=== PATIENT | male | born 1940 | race Caucasian/White ===

== ENCOUNTER 2019-11-11 07:49 | Outpatient (CLI) | payer MEDICARE, SELFPAY ==
--- NOTE | ~2019-11-11 | XR_ITS ---
XR UGI w barium swallow DATE: 11/11/2019 09:08 INDICATION: Dysphagia, abdominal pain. TECHNIQUE: Air-contrast upper gastrointestinal series. Fluoroscopy and rapid sequence spot radiograph s during swallowing of contrast material. COMPARISON: None FINDINGS: There is normal deglutition and esophageal peristalsis. No stricture, mucosal fold thickeni ng, erosion, ulceration or intraluminal mass lesion of the esophagus, stomach or duodenum is detected . The small bowel mucosal pattern appears normal. IMPRESSION: Negative examination Reviewed, dictated and finalized at Location A. Reviewed, dictated and finalized at location A. IMPRESSION: Negative examination
--- NOTE | ~2019-11-11 | US_ITS ---
EXAMINATION: US soft tissue head and neck DATE: 11/11/2019 08:19 INDICATION: Dysphagia. TECHNIQUE: Multiple grayscale and Doppler ultrasound images of the neck were obtained. COMPARISON: None FINDINGS: Solid hypoechoic right thyroid mass which is solid and wide measuring 1.5 cm in maximal dimension and without echogenic foci (TI-RADS 5, highly suspicious , FNA if >=1.0 cm, annual followup is >0.5 cm). 4 mm solid hypoechoic nodule in the left thyroid lobe. No other abnormal masses or fluid collections identified. IMPRESSION: 1. 1.5 cm solid TI-RADS 5 right thyroid nodule which ultrasound-guided biopsy would be recommended. N o other abnormal masses or fluid collections identified. Reviewed, dictated and finalized at location A. IMPRESSION: 1. 1.5 cm solid TI-RADS 5 right thyroid nodule which ultrasound-guided biopsy w ould be recommended. No other abnormal masses or fluid collections identified.
== END 2019-11-11 07:50 | disposition home or self-care (01) ==
PROVIDERS: PCP Internal Medicine; Visit Provider Internal Medicine
DX: E04.1 Nontoxic single thyroid nodule (principal); R13.10 Dysphagia, unspecified; R52 Pain, unspecified; J31.2 Chronic pharyngitis
CPT/HCPCS: 74240; 76536

== ENCOUNTER 2020-02-21 08:50 | Outpatient (CLI) | payer MEDICARE, SELFPAY | END 2020-02-21 08:51 | disposition home or self-care (01) | LOC: ANHAUDIO 08:53 | PROVIDERS: PCP Internal Medicine | DX: C01 Malignant neoplasm of base of tongue (principal) | CPT/HCPCS: 92557; 92567 ==

== ENCOUNTER 2020-03-29 10:19 | Emergency (ER) | payer MEDICARE, SELFPAY ==
[2020-03-29] VITALS (16 sets, daily range): BP systolic 101–148; BP diastolic 64–89; PULSE 71–95; RESP 13–25; TEMP 36.6; O2SAT 91–100
--- NOTE | ~2020-03-29 | CT_ITS ---
EXAMINATION: CT abdomen pelvis wo con DATE: 03/29/2020 13:34 INDICATION: Urinary retention, history of lung and throat cancer TECHNIQUE: Computed tomography (CT) of the abdomen and pelvis was performed without intravenous contr ast. The dose-length product (DLP) was 275.56 mGy-cm. Automated exposure control and iterative recons truction technique were employed. COMPARISON: 10/25/2016 FINDINGS: There is severe emphysema in the visualized lung bases. The heart size is normal. The liver , spleen, pancreas, gallbladder, and adrenal glands are normal. Simple cysts of the kidneys measure u p to 2.2 cm on the right. There is a 2 cm mildly hyperattenuating lesion of the left mid kidney. Ther e is calcified atherosclerosis of the aorta and many of the other arteries. No pathologically enlarge d abdominal or pelvic lymph nodes are identified. There is no free intraperitoneal gas or evidence of bowel obstruction. The urinary bladder is distended. There is fecal impaction of the rectum. Mild wa ll thickening of the rectum with adjacent perirectal fat stranding could reflect stercoral colitis. T here is severe lower lumbar spondylosis. IMPRESSION: 1. Distention of the urinary bladder. 2. Fecal impaction of the rectum with possible stercoral colitis. 3. Indeterminate lesion of the left mid kidney. Follow-up by nonemergent MRI without and with contras t is recommended. Reviewed, dictated and finalized at location A. L TRAINING PROGRAM COORDINATOR IMPRESSION: 1. Distention of the urinary bladder. 2. Fecal impaction of the rectum with possible stercoral colitis. 3. Indeterminate lesion of the left mid kidney. Follow-up by nonemergent MRI wi thout and with contrast is recommended.
--- NOTE | ~2020-03-29 | XR_ITS ---
EXAMINATION: XR chest 2V DATE: 03/29/2020 11:10 INDICATION: Weakness, history of lung cancer TECHNIQUE: PA and lateral views of the chest are obtained. COMPARISON: 10/11/2016 and 10/25/2016 FINDINGS: A right internal jugular Port-A-Cath ends with its tip in the distal superior vena cava. Th ere is left perihilar opacity with volume loss in the left upper lobe. There is scarring in the right lung apex. The heart size is normal. There is moderate thoracic spondylosis. IMPRESSION: 1. Left perihilar opacity with scarring and volume loss in the left upper lobe, likely related to pat ient's lung cancer. No acute findings identified. Reviewed, dictated and finalized at location A. E SALESPERSON IMPRESSION: 1. Left perihilar opacity with scarring and volume loss in the left upper lobe, likely related to patient's lung cancer. No acute findings identified.
--- NOTE | 2020-03-29 10:55 | ED.GENADULT ---
HPI - General Adult General Chief complaint: Unspecified Stated complaint: SOB/diarrhea Time Seen by Provider: 03/29/20 10:40 Source: patient Mode of arrival: ambulatory Limitations: no limitations History of Present Illness HPI narrative: This is a 79 year old male that presents to the ER for decreased urination. Reports he has not been eating or drinking much. Nothing tastes good to him. Reports he has not been getting much urine out the last couple of days. Reports he has history of lung cancer and throat cancer. Is currently on chemotherapy, most recent treatment 03/24. Reports he had a couple of days of diarrhea last week that resolved after a dose of Imodium. Reports he does have some shortness of breath which is around his baseline. Denies fever, chest pain, abdominal pain, vomiting, dysuria, or hematuria. Related Data Home Medications Medication Instructions Recorded Confirmed folic acid 800 mcg tablet 0.8 mg PO DAILY 01/08/19 02/12/20 glucosamine HCl 500 mg tablet 500 mg PO BID 01/08/19 02/12/20 lidocaine-prilocaine 2.5 %-2.5 % 1 applic TOPICAL ONCE 01/09/19 02/12/20 topical cream omega-3 fatty acids 1,000 mg 1,000 mg PO DAILY 01/09/19 02/12/20 capsule psyllium husk 0.52 gram capsule 0.52 gm PO DAILY 01/09/19 02/12/20 aspirin 81 mg tablet,delayed 81 mg PO DAILY 01/23/19 02/12/20 release tamsulosin 0.4 mg capsule 0.4 mg PO DAILY 01/23/19 02/12/20 polyethylene glycol 3350 17 17 gm PO BID 09/09/19 02/12/20 gram/dose oral powder dexamethasone 4 mg tablet 4 mg PO DAILY PRN 02/12/20 02/12/20 Allergies Allergy/AdvReac Type Severity Reaction Status Date / Time No Known Allergies Allergy Verified 03/29/20 10:37 Review of Systems Review of Systems: Narrative: CONSTITUTIONAL: Denies fever CARDIOVASCULAR: Denies chest pain RESPIRATORY: Reports dyspnea. Denies cough GASTROINTESTINAL: Reports diarrhea. Denies abdominal pain, nausea, vomiting NEUROLOGIC: Reports generalized weakness. All systems reviewed & are unremarkable except as noted in HPI and below PMFSH Past Medical History Medical History (Updated 03/29/20 @ 16:54 by Brenna Alexis PA-C) Anxiety Benign essential hypertension BMI 24.0-24.9, adult BMI 26.0-26.9,adult BMI 27.0-27.9,adult BPH (benign prostatic hyperplasia) Cellulitis Chronic sore throat COPD (chronic obstructive pulmonary disease) Dysphagia Encounter for routine adult health examination with abnormal findings Encounter for routine adult health examination without abnormal findings Essential (primary) hypertension History of tobacco use Hx of cancer of lung Hyperlipidemia Insomnia Lung cancer Malignant neoplasm of hilus of lung Metastatic lung cancer (metastasis from lung to other site) 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 Pedal edema Pulmonary emphysema Squamous cell cancer of tongue Family History Family History Sibling Family history of allergic disorder Father Family history of emphysema Family history of chronic obstructive pulmonary disease Mother Family history of emphysema, Onset Age: 89 Family history of malignant neoplasm of breast in first degree relative Family history of malignant neoplasm of breast Social History Social History Smoking status: Former smoker Second hand tobacco smoke exposure: No Smoking end date: 02/07/04 Alcohol intake: never Gender identity (if verbalized by the patient): Male Exam Narrative: Exam Narrative: GENERAL: Chronically ill-appearing, thin, and in no acute distress. HEAD: Normocephalic, atraumatic. EYES: EOMI. ENT: Nares clear, no rhinorrhea or epistaxis. Mucous membranes dry. Oropharynx without tonsillar hypertrophy exudate or other lesions. Bilateral TMs pearly henderson non-bulging NECK: Supple. No adenopathy or masses. CHEST: Clear to auscultation. No respiratory distress. No wheezes rales or rhonchi H
[2020-03-29] MEDS: SODIUM CHLORIDE 0.9% IV 1,000 ML 999 ML IV CONT (11:10)
[2020-03-29 11:37] LABS: Basophils Percent Auto 0.1 % (0.2-1.2); Hematocrit 42.8 % (42.0-52.0); Immature Granulocyte Absolute 0.07 K/mm3 (0.00-0.031); Immature Granulocyte Percent A 0.5 % (0-0.5); Lymphocytes Absolute Auto 0.99 K/mm3 (0.9-3.2); Lymphocytes Percent Auto 6.6 % (18.3-44.2); Mean Corpuscular HGB Conc 32.7 g/dl (32-36); Mean Corpuscular Hemoglobin 26.8 pg (26-34); Mean Platelet Volume 11.3 fl (7.4-10.4); Monocytes Absolute Auto 1.3 K/mm3 (0.1-0.6); Monocytes Percent Auto 8.6 % (2.6-8.5); Neutrophils Absolute Auto 12.6 K/mm3 (1.3-6.7); Neutrophils Percent Auto 84.2 % (45.5-73.1); Platelet Count Result 350 k/mm3 (150-375); Red Blood Count 5.22 M/mm3 (4.6-6.20); Red Cell Distribution Width 13.5 % (11.5-14.5); White Blood Count 14.9 K/mm3 (4.5-10.0)
[2020-03-29 11:47] LABS: INR 1.1; Prothrombin Time 14.5 Seconds (11.1-14.7)
[2020-03-29 11:48] LABS: Partial Thromboplastin Time 35.1 SECONDS (22.3-36.8)
[2020-03-29 11:52] LABS: Alanine Aminotransferase 22 U/L (4-50); Albumin Level 3.5 g/dL (3.5-5.1); Alkaline Phosphatase 49 U/L (38-126); Anion Gap 5 mmol/L (8-16); Aspartate Amino Transferase 27 U/L (17-59); Bilirubin,Total 0.5 mg/dL (0.2-1.3); Blood Urea Nitrogen 13 mg/dL (9-20); CRP 1.2 mg/dL (<1.0); Calcium 8.6 mg/dL (8.4-10.2); Carbon Dioxide 26 mmol/L (22-30); Chloride 101 mmol/L (98-107); Estimated CRCL calculation 51 ml/min; Estimated Glomerular Filt Rate > 60; Glucose 104 mg/dL (75-110); Lipase 90 U/L (23-300); Potassium 3.1 mmol/L (3.4-5.0); Sodium 132 mmol/L (137-145)
[2020-03-29 12:19] LABS: Add Urine Microscopic? YES; Appearance Urine Clear (Clear); Bacteria Urine Trace /hpf; Bilirubin Urine Negative (Negative); Blood Urine Negative (Negative); Color Urine Yellow (Yellow); Glucose Urine UA Negative (Negative); Ketones Urine Negative (Negative); Leukocyte Esterase Ur Negative LEU/UL (Negative); Nitrate Urine Negative (Negative); Protein Urine Negative (Negative); RBC Urine 0-2 /hpf (0-2); Specific Grav Ur 1.009 (1.001-1.035); Squamous Epithelial Cell Urine Rare /hpf (Few); Urobilinogen Urine Negative mg/dL (<2.0)
[2020-03-29] MEDS: POTASSIUM CHLORIDE 20 MEQ PACKET (FOR LIQUID) 40 MEQ PO (15:18)
[2020-03-29] MEDS: HEPARIN SOD FLUSH 500 UNITS/5 ML SYRINGE IV PUSH (17:20)
== END 2020-03-29 17:27 | disposition home or self-care (01) ==
PROVIDERS: Physician Assistant; Emergency Provider Emergency Medicine; PCP Internal Medicine
DX: N30.00 Acute cystitis without hematuria (principal); N40.1 Benign prostatic hyperplasia with lower urinary tract symptoms; R33.8 Other retention of urine; K56.41 Fecal impaction; C34.90 Malignant neoplasm of unspecified part of unspecified bronchus or lung; C14.0 Malignant neoplasm of pharynx, unspecified; E78.5 Hyperlipidemia, unspecified; I10 Essential (primary) hypertension; J44.9 Chronic obstructive pulmonary disease, unspecified; N28.9 Disorder of kidney and ureter, unspecified; Z87.891 Personal history of nicotine dependence; Z79.899 Other long term (current) drug therapy; R06.02 Shortness of breath
CPT/HCPCS: 36415; 71046; 74176; 80053; 81001; 83605; 83690; 85025; 85610; 85730; 86140; 87086; 96360; 99284; A9270; J7030

== ENCOUNTER 2020-05-27 12:56 | Outpatient (CLI) | payer MEDICARE, SELFPAY ==
--- NOTE | 2020-06-02 16:12 | WPDHOLTEREM ---
Holter/Event Monitor Holter/Event Monitor Date of procedure: 05/27/20 Procedure Type: 48 hour holter monitor Indications: ? Conclusion: 1. 48 hour holter monitor on 05/27/20. 2. Predominant rhythm is sinus rhythm. HR range 61-113 bpm; average HR 85 bpm. 3. There are 21,902 premature supraventricular complexes, 627 supraventricular couplets, 3 supraventricular bigeminy and 19,797 supraventricular trigeminy. There are 96 episodes of atrial tachycardia, fastest at 188 bpm and longest lasting 11 beats. 4. There are 2,548 premature ventricular complexes, 9 ventricular couplets and 125 ventricular trigeminy. No ventricular tachycardia. 5. No sinoatrial or atrioventricular blocks. No significant pauses greater than 2 seconds. 6. No symptoms available for correlation.
== END 2020-05-27 12:57 | disposition home or self-care (01) ==
PROVIDERS: PCP Internal Medicine; Visit Provider Internal Medicine
DX: I49.49 Other premature depolarization (principal); R00.2 Palpitations
CPT/HCPCS: 93225; 93226

== ENCOUNTER 2021-04-04 18:14 | Emergency (ER) | payer MEDICARE, SELFPAY ==
[2021-04-04] VITALS (13 sets, daily range): BP systolic 120–142; BP diastolic 76–104; PULSE 84–144; RESP 17–29; TEMP 37.2; O2SAT 89–96
--- NOTE | ~2021-04-04 | XR_ITS ---
EXAMINATION: XR chest 1V portable INDICATION: Shortness of breath, history of lung cancer TECHNIQUE: Portable AP chest at 1834 hours COMPARISON: 03/29/2020 FINDINGS: A right internal jugular Port-A-Cath ends with its tip in the distal superior vena cava. Th ere are persistent left perihilar opacities with volume loss in the left lung apex. There are increas ing airspace opacities in the left mid and lower lung zones. There is elevation of the right hemidiap hragm. The heart size is normal. IMPRESSION: 1. Increasing airspace opacities of the left mid and lower lung zones, consistent with atelectasis ve rsus pneumonia. 2. Left perihilar opacity and volume loss of the left upper lobe, likely related to patient's lung ca ncer. Reviewed, dictated and finalized at location F. HER POLISHER IMPRESSION: 1. Increasing airspace opacities of the left mid and lower lung zones, consiste nt with atelectasis versus pneumonia. 2. Left perihilar opacity and volume loss of the left upper lobe, likely relate d to patient's lung cancer.
--- NOTE | ~2021-04-04 | CT_ITS ---
EXAMINATION: CTA chest PE protocol DATE: 04/05/2021 07:16 CINDER SNAPPER INDICATION: Shortness of breath. Elevated d-dimer. TECHNIQUE: Computed tomographic angiography (CTA) of the chest was performed with 100 mL Omnipaque-35 0 intravenous contrast. The dose-length product was 487.85 mGy-cm. Maximum intensity projection 3D-re constructions of the aorta and other arteries were constructed by the technologist on a separate work station. COMPARISON: CT dated 10/11/2016. FINDINGS: There is right upper lobe pulmonary embolism, age indeterminate. There is a large pericardi al effusion. Small pleural effusions. There is atherosclerosis of the aorta. There is a hyperdense ri ght renal lesion which has increased in size compared with prior study severe emphysema. There is sca rring at the lung apices. There is fibrosis in the lower lungs with underlying atelectasis. There are scattered areas of consolidation. Cannot exclude acute pneumonia. There is linear appearance to scar ring in the left thorax medially, possibly radiation therapy.. Recommend correlation with ultrasound. There are nodular densities in the right upper and lower lobe laterally on the largest measuring 11 mm. Cannot exclude malignancy. IMPRESSION: 1. Pulmonary embolism right upper and lower lobes pulmonary artery, age indeterminate. 2: Irregular pleural-based nodules right upper lobe. Cannot exclude malignancy. Consider correlation with pet/CT scan or percutaneous biopsy. 3: Moderate pericardial effusion. Small pleural effusions. 4: Emphysema. 5: Hyperdense right renal lesion, enlarged since prior examination. Recommend correlation with ultras ound. Reviewed, dictated and finalized at location A. ER SNAPPER IMPRESSION: 1. Pulmonary embolism right upper and lower lobes pulmonary artery, age indeter minate. 2: Irregular pleural-based nodules right upper lobe. Cannot exclude malignancy . Consider correlation with pet/CT scan or percutaneous biopsy. 3: Moderate pericardial effusion. Small pleural effusions. 4: Emphysema. 5: Hyperdense right renal lesion, enlarged since prior examination. Recommend c orrelation with ultrasound.
--- NOTE | 2021-04-04 18:22 | ECG_ITS ---
Measurements Intervals [place] Rate: 93 P: 265 MN: 105 QRS: 50 QRSD: 89 T: 38 QT: 357 QTc: 446 Interpretive Statements ECTOPIC ATRIAL RHTYHM ATRIAL COUPLET LOW QRS VOLTAGE IN LIMB LEADS BORDERLINE R WAVE PROGRESSION, ANTERIOR LEADS ABNORMAL ECG Electronically Signed On 04-04-2021 20:21:18 POCKET OPERATOR by Miles Galvan D.O.
--- NOTE | 2021-04-04 18:23 | ED.SOB ---
HPI - SOB/Dyspnea General Chief Complaint: Shortness of Breath/Dyspnea <Andres Montes APRN - Last Filed: 04/04/21 18:47> Stated Complaint: dyspnea <Andres Montes APRN - Last Filed: 04/04/21 18:47> Time Seen by Provider: 04/04/21 19:01 <Andres Montes APRN - Last Filed: 04/04/21 18:47> History of Present Illness HPI Narrative: 80-year-old male presents to the emergency room with acute onset of shortness of breath started this morning. Patient has a history of lung CA, last chemo treatment was 3 weeks ago. Patient states has been taking his MDI albuterol inhaler on multiple occasions today with no relief. Patient recently diagnosed with atrial fibrillation, has started on Eliquis and metoprolol. Patient does not know who his master baker is. <Andres Montes APRN - Last Filed: 04/04/21 18:47> Patient recently admitted to [facility] for his A-fib. Also he is due for Chemo on Monday at [facility]. <Hilary Nayak APRN - Last Filed: 04/05/21 03:16> Related Data Home Medications: Home Medications Medication Instructions Recorded Confirmed folic acid 800 mcg tablet 0.8 mg PO DAILY 01/08/19 03/02/21 lidocaine-prilocaine 2.5 %-2.5 % 1 applic TOPICAL ONCE 01/09/19 03/02/21 topical cream omega-3 fatty acids 1,000 mg 1,000 mg PO DAILY 01/09/19 03/02/21 capsule aspirin 81 mg tablet,delayed 81 mg PO DAILY 01/23/19 03/02/21 release tamsulosin 0.4 mg capsule 0.4 mg PO DAILY 01/23/19 03/02/21 polyethylene glycol 3350 17 17 gm PO BID 09/09/19 03/02/21 gram/dose oral powder finasteride 5 mg tablet 5 mg PO DAILY 05/27/20 03/02/21 gabapentin 100 mg capsule 100 mg PO TID 07/01/20 03/02/21 dexamethasone 4 mg tablet 8 mg PO DAILY PRN tablet 10/14/20 03/02/21 Eliquis 04/04/21 metoprolol succinate 04/04/21 <Andres Montes APRN - Last Filed: 04/04/21 18:47> Allergies/Adverse Reactions: Allergies Allergy/AdvReac Type Severity Reaction Status Date / Time No Known Allergies Allergy Verified 04/05/21 00:43 <Andres Montes APRN - Last Filed: 04/04/21 18:47> Review of Systems Review of Systems: CONSTITUTIONAL: Denies fever, chills, or sweats. EYES: Denies visual changes, redness, or discharge. ENT: Denies rhinorrhea, congestion, sore throat, or otalgia. CARDIOVASCULAR: Denies chest pain, palpitations, or edema. RESPIRATORY: Reports dyspnea. GASTROINTESTINAL: Denies abdominal pain, nausea, vomiting, or diarrhea. GENITOURINARY: Denies dysuria or hematuria. SKIN: Denies rash or itching. MUSCULOSKELETAL: Denies back pain, joint pain, or myalgia. NEUROLOGIC: Denies headache, numbness, dizziness, or weakness. PSYCHIATRIC: Denies anxiety or depression. <Andres Montes APRN - Last Filed: 04/04/21 18:47> [facility] Past Medical History Medical History: Medical History Anxiety Benign essential hypertension BMI 22.0-22.9, adult BMI 23.0-23.9, adult BMI 24.0-24.9, adult BMI 26.0-26.9,adult BMI 27.0-27.9,adult BPH (benign prostatic hyperplasia) Cellulitis Chronic sore throat Constipation Dry mouth Dysphagia Ectopic beats Encounter for routine adult health examination with abnormal findings Encounter for routine adult health examination without abnormal findings Essential (primary) hypertension Follow up History of tobacco use Hx of cancer of lung Hyperlipidemia Insomnia Malignant neoplasm of hilus of lung Metastatic lung cancer (metastasis from lung to other site) On intermediate drug therapy PAC (premature atrial contraction) Pedal edema Pulmonary emphysema Squamous cell cancer of tongue SVT (supraventricular tachycardia) Urinary retention <Andres Montes APRN - Last Filed: 04/04/21 18:47> Family History Family History: Family History Sibling Family history of allergic disorder Father Family history of emphysema Family history of chronic obstr
--- NOTE | 2021-04-04 18:49 | PC.NURSE ---
Pt's rhythm converted out of a-fib while RN hooking patient up for EKG. HR improved from 140's to 80-90's. Pt states that he is feeling much better, and trialed off of supplemental O2. Pt now 96% on RA, speaking full sentences. Provider aware.
[2021-04-04 19:03] LABS: Alveolar/Arterial O2 Gradient 99.6 mmHg; Base Excess ABG -0.2 mEq/l (+/-2.0); Fractional Inspired Oxygen 21 %; HCO3 ABG 21.9 mEq/l (22.0-26.0); Oxygen Content ABG 15.8 %vol (16.0-22.0); Oxygen Saturation ABG 94.5 % (95.0-100.0); Oxyhemoglobin 91.5 % THb (90.0-100.0); PCO2 ABG 28.5 mmHg (35.0-45.0); PO2 ABG 64.1 mmHg (80.0-100.0); PO2 FiO2 Ratio Arterial Blood 3.05 %; Total Hemoglobin 12.3 g/dL (12.0-18.0)
[2021-04-04 19:04] LABS: pH ABG 7.504 (7.350-7.450)
[2021-04-04 19:05] LABS: Device ROOM AIR; Modified Allen's Test Pass; Site Drawn RIGHT RADIAL
--- NOTE | 2021-04-04 19:42 | PC.NURSE ---
This RN attempted to access port x 2 attempts. Could not get port to flush or draw blood despite appearing to be in place with either attempt. RN then attempted to obtain labs via peripheral access. Attempted IV placement x 2. IV successfully placed, however, unable to obtain enough blood to get any of the lab work. Provider updated. Pt requesting numbing cream of some form if additional attempts are needed to access port.
[2021-04-04] MEDS: LIDOCAINE/PRILOCAINE CREAM 2.5-2.5% TUBE 1 EACH TOPICAL (20:13)
[2021-04-04 21:23] LABS: Basophils Percent Auto 0.1 % (0.2-1.2); Eosinophils Percent Auto 0.1 % (0-4.4); Hematocrit 33.2 % (42.0-52.0); Hemoglobin 10.9 g/dL (14.0-18.0); Immature Granulocyte Absolute 0.08 K/mm3 (0.00-0.031); Immature Granulocyte Percent A 0.5 % (0-0.5); Lymphocytes Percent Auto 7.5 % (18.3-44.2); Mean Corpuscular HGB Conc 32.8 g/dl (32-36); Mean Corpuscular Hemoglobin 28.5 pg (26-34); Mean Corpuscular Volume 86.9 fl (80-100); Mean Platelet Volume 10.9 fl (7.4-10.4); Monocytes Absolute Auto 1.3 K/mm3 (0.1-0.6); Monocytes Percent Auto 7.5 % (2.6-8.5); Neutrophils Absolute Auto 14.6 K/mm3 (1.3-6.7); Neutrophils Percent Auto 84.3 % (45.5-73.1); Platelet Count Result 323 k/mm3 (150-375); Red Blood Count 3.82 M/mm3 (4.6-6.20); Red Cell Distribution Width 15.1 % (11.5-14.5); White Blood Count 17.3 K/mm3 (4.5-10.0)
[2021-04-04 21:33] LABS: Alanine Aminotransferase 34 U/L (4-50); Albumin Level 3.1 g/dL (3.5-5.1); Alkaline Phosphatase 63 U/L (38-126); Anion Gap 4 mmol/L (8-16); Aspartate Amino Transferase 30 U/L (17-59); Bilirubin,Total 0.3 mg/dL (0.2-1.3); Blood Urea Nitrogen 39 mg/dL (9-20); Calcium 8.3 mg/dL (8.4-10.2); Carbon Dioxide 27 mmol/L (22-30); Chloride 99 mmol/L (98-107); Estimated Glomerular Filt Rate 53; Glucose 84 mg/dL (65-110); Magnesium 2.3 mg/dL (1.6-2.3); Potassium 4.2 mmol/L (3.4-5.0); Sodium 130 mmol/L (137-145)
[2021-04-04 21:35] LABS: INR 2.2
[2021-04-04] MEDS: SODIUM CHLORIDE 0.9% IV 1,000 ML 125 ML IV CONT (21:38)
[2021-04-04 21:45] LABS: NT Pro B Type Natriuretic Pept 1480 pg/mL (5-100); Troponin I 0.026 ng/mL (0.000-0.034)
[2021-04-04 21:46] LABS: D Dimer 0.87 ug/mL (<0.48)
[2021-04-04 22:24] LABS: SARS-CoV-2 RNA PCR Negative
--- NOTE | 2021-04-04 23:10 | PC.NURSE ---
Handoff received from Betina VIGIL. Patient lying in ED stretcher. Reports being uncomfortable in stretcher. Calm and cooperative. Patient AAOX3. Eqaul and labored resp. Tachypneic. Port in place secured and patent. 22gIV L wrist in place secured and patent. Family at bedside. Denies any pain. Repositioned in bed, pants removed. Urinal placed within reach. Placed on O2 via NC at 2LPM for SpO2 of 89. Patient reports being more comfortable. SpO2 improved to 92%. Will continue to monitor patient.
[2021-04-04] MEDS: FUROSEMIDE INJ 100 MG/10 ML VIAL 80 MG IV PUSH (23:13)
[2021-04-05 00:06] LABS: Add Urine Microscopic? YES; Appearance Urine Clear (Clear); Bilirubin Urine Negative (Negative); Blood Urine Negative (Negative); Color Urine Yellow (Yellow); Glucose Urine UA Negative (Negative); Ketones Urine Negative (Negative); Leukocyte Esterase Ur Negative LEU/UL (Negative); Nitrate Urine Negative (Negative); Protein Urine Negative (Negative); RBC Urine 0-2 /hpf (0-2); Specific Grav Ur 1.017 (1.001-1.035); Squamous Epithelial Cell Urine Rare /hpf (Few); Urobilinogen Urine Negative mg/dL (<2.0); WBC Urine 0-3 /hpf
[2021-04-05 01:00] VITALS: BP 140/91; PULSE 166; RESP 24; O2SAT 95
[2021-04-05] MEDS: METOPROLOL TARTRATE INJ 5 MG/5 ML VIAL IV PUSH (01:00)
[2021-04-05 01:17] VITALS: BP 135/59; PULSE 90; RESP 22; O2SAT 95
[2021-04-05 03:30] VITALS: BP 101/64; PULSE 91; RESP 18; O2SAT 99
[2021-04-05 05:37] VITALS: BP 99/72; PULSE 94; RESP 20; TEMP 36.6; O2SAT 99
== END 2021-04-05 05:42 | disposition short-term general hospital (02) ==
LOC: ANHED 19:42
PROVIDERS: Nurse Practitioner Family; Emergency Provider Nurse Practitioner Family; PCP Internal Medicine
DX: I11.0 Hypertensive heart disease with heart failure (principal); I50.9 Heart failure, unspecified; I31.3 Pericardial effusion (noninflammatory); I48.92 Unspecified atrial flutter; C79.9 Secondary malignant neoplasm of unspecified site; Z20.822 Contact with and (suspected) exposure to COVID-19; C34.90 Malignant neoplasm of unspecified part of unspecified bronchus or lung; I48.91 Unspecified atrial fibrillation; E78.5 Hyperlipidemia, unspecified; J43.9 Emphysema, unspecified; F41.9 Anxiety disorder, unspecified; Z79.01 Long term (current) use of anticoagulants; Z79.82 Long term (current) use of aspirin; Z79.899 Other long term (current) drug therapy; Z87.891 Personal history of nicotine dependence; R00.8 Other abnormalities of heart beat; R94.31 Abnormal electrocardiogram [ECG] [EKG]; N28.9 Disorder of kidney and ureter, unspecified
CPT/HCPCS: 36415; 36600; 71045; 71275; 80053; 81001; 82805; 83605; 83735; 83880; 84484; 85025; 85380; 85610; 85730; 87040; 93005; 96361; 96365; 96375; 99285; C9803; J0692; J1940; J7030; Q9967; U0003; U0005

== ENCOUNTER 2022-11-08 15:15 | Outpatient (CLI) | payer MEDICARE, SELFPAY ==
--- NOTE | ~2022-11-08 | XR_ITS ---
EXAMINATION: XR knee LT min 4V DATE: 11/08/2022 15:47 INDICATION: Left knee pain. TECHNIQUE: 4 views of left knee including weightbearing views were obtained. COMPARISON: None. FINDINGS: Bone alignment is normal. No fracture. There is mild osteoarthritis of lateral compartment characterized by a tiny osteophyte. No knee joint effusion. IMPRESSION: 1. Mild left knee osteoarthritis. Reviewed, dictated and finalized at location E.
--- NOTE | ~2022-11-08 | XR_ITS ---
EXAMINATION: XR ankle LT min 3V DATE: 11/08/2022 15:47 INDICATION: Left knee pain TECHNIQUE: Anteroposterior, oblique, mortise, and lateral views of the left ankle were obtained. COMPARISON: None. FINDINGS: Alignment is normal. No fracture. Joint spaces are well maintained. Tiny plantar calcaneal spur. No ankle joint effusion. The soft tissues are unremarkable. IMPRESSION: 1. No left ankle joint effusion or acute osseous abnormality. Reviewed, dictated and finalized at location A.
== END 2022-11-08 15:16 | disposition home or self-care (01) ==
LOC: ANHIMG 15:19
PROVIDERS: PCP Internal Medicine; Visit Provider Internal Medicine
DX: M17.12 Unilateral primary osteoarthritis, left knee (principal)
CPT/HCPCS: 73564; 73610

== ENCOUNTER 2022-11-24 13:08 | Outpatient (CLI) | payer MEDICARE, SELFPAY ==
--- NOTE | ~2022-11-24 | US_ITS ---
EXAMINATION: US venous doppler [facility] DATE: 11/24/2022 14:22 INDICATION: Lower limb pain TECHNIQUE: Castrejon scale images without and with compression and Doppler images of the left lower extrem ity veins were obtained. COMPARISON: 10/15/2018 FINDINGS: The left common femoral vein, profunda femoral vein, femoral vein, popliteal vein, peroneal trunk, posterior tibial veins, and greater saphenous vein are patent. IMPRESSION: 1. Patent left lower extremity veins. No evidence of deep venous thrombosis. Reviewed, dictated and finalized at location F.
== END 2022-11-24 13:09 | disposition home or self-care (01) ==
PROVIDERS: PCP Internal Medicine; Visit Provider Internal Medicine
DX: M25.572 Pain in left ankle and joints of left foot (principal); M25.562 Pain in left knee; M79.89 Other specified soft tissue disorders
CPT/HCPCS: 93971

== ENCOUNTER 2022-12-19 10:41 | Emergency (ER) | payer MEDICARE, SELFPAY ==
--- NOTE | ~2022-12-19 | CT_ITS ---
EXAMINATION: CT brain wo con DATE: 12/19/2022 11:35 INDICATION: Head injury. TECHNIQUE: Computed tomography (CT) of the head was performed without intravenous contrast. The mA wa s adjusted according to patient size. Iterative reconstruction technique was employed. The dose-lengt h product was 605.33 mGy-cm. COMPARISON: None FINDINGS: There is no intracranial hemorrhage, acute infarction, or abnormal intracranial mass lesion . The ventricles are normal in size. There are likely changes of ocular lens replacement surgeries. T here is mild mucosal thickening in the paranasal sinuses. There is a trace left mastoid effusion. IMPRESSION: 1. Normal brain. Reviewed, dictated and finalized at location A. OOD PREPARER IMPRESSION: 1. Normal brain.
[2022-12-19 10:53] VITALS: BP 110/61; PULSE 58; RESP 16; TEMP 36.9; O2SAT 97
[2022-12-19] MEDS: LIDOCAINE HCL 1% LOCAL INJ 10 ML VIAL 4 ML INFILTRATE (11:26)
--- NOTE | 2022-12-19 13:33 | ED.GENADULT ---
HPI - General Adult General Chief complaint: Head Injury <Ken Romero PA-C - Last Filed: 12/19/22 13:37> Stated complaint: FALL, MOUTH INJURY ON ELIQUIS <Ken Romero PA-C - Last Filed: 12/19/22 13:37> Time Seen by Provider: 12/19/22 11:14 <Ken Romero PA-C - Last Filed: 12/19/22 13:37> History of Present Illness HPI narrative: Patient is an 82-year-old male who presents ER after a trip and fall. Occurred outside his oncologist office. He did strike his head but did not lose consciousness. He suffered stellate laceration to his lower lip. Reports his tetanus shot is up-to-date. He has no headache or change in vision. No numbness or tingling. No additional concerns at this time. He did chip a tooth on his denture when he fell. <Chidi Haque MD - Last Filed: 12/19/22 18:06> Related Data Home medications: Home Medications Medication Instructions Recorded Confirmed folic acid 800 mcg tablet 0.8 mg PO DAILY 01/08/19 11/09/22 lidocaine-prilocaine 2.5 %-2.5 % 1 applic topical ONCE 01/09/19 11/09/22 topical cream tamsulosin 0.4 mg capsule 0.4 mg PO DAILY 01/23/19 11/09/22 polyethylene glycol 3350 17 17 gm PO BID 09/09/19 11/09/22 gram/dose oral powder (Miralax) finasteride 5 mg tablet 5 mg PO DAILY 05/27/20 11/09/22 gabapentin 100 mg capsule 100 mg PO TID 07/01/20 11/09/22 dexamethasone 4 mg tablet 8 mg PO DAILY PRN 10/14/20 11/09/22 Eliquis 04/04/21 11/09/22 carvedilol 12.5 mg tablet 12.5 mg PO Q12H 07/23/21 11/09/22 spironolactone 25 mg tablet 25 mg PO DAILY 07/23/21 11/09/22 cetirizine 10 mg tablet (Zyrtec) 10 mg PO DAILY PRN 08/20/21 11/09/22 cholecalciferol (vitamin D3) 50 50 mcg PO DAILY 04/05/22 11/09/22 mcg (2,000 unit) capsule <Ken Romero PA-C - Last Filed: 12/19/22 13:37> Allergies/adverse reactions: Allergies Allergy/AdvReac Type Severity Reaction Status Date / Time No Known Allergies Allergy Verified 12/19/22 10:55 <Ken Romero PA-C - Last Filed: 12/19/22 13:37> Review of Systems Review of Systems: All systems reviewed & are unremarkable except as noted in HPI and below <Chidi Haque MD - Last Filed: 12/19/22 18:06> ENT: Reports system reviewed and no additional complaints, except as documented <Chidi Haque MD - Last Filed: 12/19/22 18:06> Cardiovascular: Cardiovascular: Reports no additional cardiovascular complaints <Chidi Haque MD - Last Filed: 12/19/22 18:06> Respiratory: Respiratory: Reports no additional respiratory complaints <Chidi Haque MD - Last Filed: 12/19/22 18:06> Gastrointestinal: Gastrointestinal: Reports no additional gastrointestinal complaints <Chidi Haque MD - Last Filed: 12/19/22 18:06> Integumentary/Breasts: Skin/Breast: Denies erythema and Denies rash <Chidi Haque MD - Last Filed: 12/19/22 18:06> Comments: Lip laceration <Chidi Haque MD - Last Filed: 12/19/22 18:06> [facility] Past Medical History Medical History: Medical History Anxiety Benign essential hypertension BMI 22.0-22.9, adult BMI 23.0-23.9, adult BMI 24.0-24.9, adult BMI 26.0-26.9,adult BMI 27.0-27.9,adult Borderline abnormal TFTs BPH (benign prostatic hyperplasia) Cellulitis Chronic sore throat Constipation Depression Dry mouth Dysphagia Ectopic beats Encounter for routine adult health examination with abnormal findings Encounter for routine adult health examination without abnormal findings Essential (primary) hypertension Follow up History of tobacco use Hx of cancer of lung Hyperlipidemia Insomnia Malignant neoplasm of hilus of lung Metastatic lung cancer (metastasis from lung to other site) 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
[2022-12-19 13:44] VITALS: BP 114/69; PULSE 62; RESP 20; O2SAT 98
== END 2022-12-19 13:45 | disposition home or self-care (01) ==
PROVIDERS: Emergency Provider Emergency Medicine; PCP Internal Medicine
DX: S01.511A Laceration without foreign body of lip, initial encounter (principal); I10 Essential (primary) hypertension; J43.9 Emphysema, unspecified; E78.5 Hyperlipidemia, unspecified; N40.0 Benign prostatic hyperplasia without lower urinary tract symptoms; G62.9 Polyneuropathy, unspecified; E55.9 Vitamin D deficiency, unspecified; Z85.118 Personal history of other malignant neoplasm of bronchus and lung; Z87.891 Personal history of nicotine dependence; Z79.01 Long term (current) use of anticoagulants; W01.0XXA Fall on same level from slipping, tripping and stumbling without subsequent striking against object, initial encounter
CPT/HCPCS: 12011; 12051; 70450; 99284

== ENCOUNTER 2023-07-11 15:24 | Outpatient (CLI) | payer MEDICARE, SELFPAY ==
--- NOTE | ~2023-07-11 | XR_ITS ---
EXAM: XR hip RT min 2V DATE: 07/11/2023 16:02 HISTORY: M79.604 - Pain in right leg . COMPARISON: None available. FINDINGS: Decreased mineralization. No fracture or dislocation. No lytic or blastic lesion. Lumbar d egenerative disc disease. Mild superior joint space narrowing in the right hip. No erosion or periost eal change. Soft tissues within normal limits. IMPRESSION: Osteopenia. Mild right hip osteoarthritis. Reviewed, dictated and finalized at location K.
--- NOTE | ~2023-07-11 | XR_ITS ---
XR lumbar spine min 4V 07/11/2023 16:02 Indication: Low back pain Procedure: 5 views lumbar spine Comparison: No prior studies for comparison. Findings: There is levoscoliosis of the lumbar spine. There is disc narrowing at all lumbar levels. T here is grade 1 degenerative spondylolisthesis at L4-5. There is multilevel facet hypertrophy. Sacral foramen are symmetric. Pedicles intact. Impression: 1: Severe lumbar spondylosis with levoscoliosis centered at the thoracolumbar junction. Reviewed, dictated and finalized at location B. Impression: 1: Severe lumbar spondylosis with levoscoliosis centered at the thoracolumbar j unction.
== END 2023-07-11 15:25 | disposition home or self-care (01) ==
LOC: ANHIMG 15:25
PROVIDERS: PCP Internal Medicine; Visit Provider Internal Medicine
DX: M54.9 Dorsalgia, unspecified (principal); M25.551 Pain in right hip; M79.604 Pain in right leg; M43.06 Spondylolysis, lumbar region; M41.86 Other forms of scoliosis, lumbar region; M85.88 Other specified disorders of bone density and structure, other site; M16.11 Unilateral primary osteoarthritis, right hip
CPT/HCPCS: 72110; 73502

== ENCOUNTER 2024-06-03 13:36 | Outpatient (CLI) | payer MEDICARE, SELFPAY ==
--- NOTE | ~2024-06-03 | XR_ITS ---
XR hip RT min 2V Ordering provider: Shon Willis MD History: . M25.551 - Pain in right hip . Comparison: July 11, 2023 FINDINGS: BONES: No acute fracture or dislocation. HIP JOINT SPACES: Mild right hip osteoarthritic changes. SACROILIAC JOINT SPACES/LUMBAR SPINE: The sacroiliac joint spaces are normal. Mild degenerative edward es of the visualized lower lumbar spine. PUBIC SYMPHYSIS: Normal. SOFT TISSUES: Normal. IMPRESSION: No acute osseous abnormality pelvis and right hip. Mild right hip osteoarthritic changes. Reviewed, dictated and finalized at location A.
== END 2024-06-03 13:37 | disposition home or self-care (01) ==
LOC: MICIMG 13:37
PROVIDERS: PCP Internal Medicine; Visit Provider Internal Medicine
DX: M16.11 Unilateral primary osteoarthritis, right hip (principal)
CPT/HCPCS: 73502

== ENCOUNTER 2024-06-04 13:49 | Outpatient (CLI) | payer MEDICARE, SELFPAY ==
--- NOTE | ~2024-06-04 | US_ITS ---
EXAMINATION: US soft tissue groin RT DATE: 06/04/2024 14:13 INDICATION: Right groin pain TECHNIQUE: Multiple grayscale and Doppler ultrasound images of the right inguinal region of concern w ere obtained. COMPARISON: None FINDINGS: No evident inguinal hernia identified. There is a superficial subcutaneous 1.2 x 1.1 x 1.0 cm complex cystic lesion which is within 1 mm of the skin surface. The lesion is and demonstrates both anechoic and very hypoechoic regions and there is posterior acoustic enhancement. No discernible internal vas cular flow or significant surrounding hyperemia on color Doppler. No pathologically enlarged lymph no lexie are abnormal soft tissue masses identified. IMPRESSION: 1. Nonspecific 1.2 cm superficial subcutaneous lesion at the region of concern. Differential would in clude epidermoid cyst, hematoma or abscess in the appropriate clinical setting. Cystic neoplasm would be significantly less likely and there is no evident internal vascular flow to elevate concern. Reviewed, dictated and finalized at location B. IMPRESSION: 1. Nonspecific 1.2 cm superficial subcutaneous lesion at the region of concern. Differential would include epidermoid cyst, hematoma or abscess in the appropr iate clinical setting. Cystic neoplasm would be significantly less likely and t here is no evident internal vascular flow to elevate concern.
== END 2024-06-04 13:50 | disposition home or self-care (01) ==
LOC: MICIMG 13:50
PROVIDERS: PCP Internal Medicine; Visit Provider Internal Medicine
DX: K40.90 Unilateral inguinal hernia, without obstruction or gangrene, not specified as recurrent (principal); R10.31 Right lower quadrant pain
CPT/HCPCS: 76882

== ENCOUNTER 2024-07-22 00:46 | Day surgery (SDC) | payer MEDICARE, SELFPAY ==
[2024-07-16 15:11] VITALS: BMI 22.3
--- OUTSIDE RECORDS SUMMARY | 2024-07-22 00:49 | XMS_ITS | Encounter Summary ---
Author Organization [facility] Address [address] [place] [address] Phone Care Team Providers Care Blueberry Grower Name Role Phone Shon Willis MD Primary Care Provider [phone] Govind Navarro MD Unavailable Sher Xiong MD PhD Unavailable [phone] Russ Rand MD Unavailable Deric Ingram MD Unavailable Aamir Cox MD Unavailable Abdulkadir Santos MD Unavailable [phone] Leon Arroyo MD Unavailable Chidi Duke MD Unavailable [phone] Arely Hartman MD Unavailable + Encounter Details Date Type Department Care Team (Latest Contact Info) Description 10/05/2020 Orders Only [facility] Scanning, Provider Social History Tobacco Use Types Packs/Day Years Used Date Smoking Tobacco: Former Cigarettes Q uit: 2008 Smokeless Tobacco: Never Alcohol Use Standard Drinks/Week Comments Not Currently 0 (1 standard drink = 0.6 oz pur e alcohol) quit 1995 Sex and Gender Information Value Date Recorded Sex Assigned at Not on file Legal Sex Male 1:36 AM PUGGER HELPER Gender Identity Male 03/05/2020 2:02 PM PUGGER HELPER Sexual Orientation Straight 07/09/2018 9: 09 PM CDT documented as of this encounter Plan of Treatment Not on file documented as of this encounter Procedures Procedure Name Priority Date/Time Associated Diagnosis Comments SCAN - PATHOLOGY 10/05/2020 documented in this encounter Results * SCAN - PATHOLOGY (10/05/2020) us Provider Scanning Final Result documented in this encounter Visit Diagnoses Not on filedocumented in this encounter Additional Health Concerns Infection Onset Date Last Indicated Resolved Time COVID: Suspected 04/05/2021 04/05/2021 04/05/2021 7:00 PM PUGGER HELPER documented as of this encounter Care Teams Blueberry Grower Relationship Specialty Start Date End Date Shon Willis MD [address] [facility] [address] [place] [id number] PCP - General Internal Medicine 10/23/18 Govind Navarro MD [address] [place] [address] Medical Oncologist/Hematologis t Medical Oncology 02/09/20 Sher Xiong MD PhD [address] [place] [address] Consulting Physician Radiation Oncology 02/09/20 Russ Rand MD [address] [place] [address] Consulting Physician Otolaryngology 02/09/20 Deric Ingram MD [address] [place] [address] Consulting Physician Hematology and Oncology 03/11/20 03/29/21 Aamir Cox MD [address] [facility] [address] [place] [address] Radiation Oncology 03/13/20 Abdulkadir Santos MD [address] [facility] [address] [place] [address] Medical Oncologist/Hematologis t Medical Oncology 11/17/20 Leon Arroyo MD [address] [place] [address] Consulting Physician Internal Medicine 03/31/21 Chidi Duke MD [address] [place] [address] Consulting Physician Internal Medicine 04/16/21 Arely Hartman MD [address] [place] [address] Consulting Physician Cardiovascular Disease 04/16/21 documented as of this encounter
--- OUTSIDE RECORDS SUMMARY | 2024-07-22 00:49 | XMS_ITS | Encounter Summary ---
Author Organization [facility] Address [address] [place] [address] Phone Care Team Providers Care Air Purifier Servicer Name Role Phone Shon Willis MD Primary Care Provider [phone] Govind Navarro MD Unavailable [phone] Sher Xiong MD PhD Unavailable [phone] Russ Rand MD Unavailable [phone] Deric Ingram MD Unavailable Aamir Cox MD Unavailable Dariela Carlin NP Unavailable [phone] Abdulkadir Santos MD Unavailable Leon Arroyo MD Unavailable [phone] Chidi Duke MD Unavailable Arely Hartman MD Unavailable + Encounter Details Date Type Department Care Team (Latest Contact Info) Description 03/30/2020 Orders Only [facility] Scanning, Provider Social History Tobacco Use Types Packs/Day Years Used Date Smoking Tobacco: Former Cigarettes Q uit: 2008 Smokeless Tobacco: Never Alcohol Use Standard Drinks/Week Comments Not Currently 0 (1 standard drink = 0.6 oz pur e alcohol) quit 1995 Sex and Gender Information Value Date Recorded Sex Assigned at Not on file Legal Sex Male 1:36 AM NARCOTICS AGENT Gender Identity Male 03/05/2020 2:02 PM NARCOTICS AGENT Sexual Orientation Straight 07/09/2018 9: 09 PM CDT documented as of this encounter Plan of Treatment Not on file documented as of this encounter Procedures Procedure Name Priority Date/Time Associated Diagnosis Comments SCAN - PATHOLOGY 03/30/2020 documented in this encounter Results * SCAN - PATHOLOGY (03/30/2020) us Provider Scanning Final Result documented in this encounter Visit Diagnoses Not on filedocumented in this encounter Additional Health Concerns Infection Onset Date Last Indicated Resolved Time COVID: Suspected 04/05/2021 04/05/2021 04/05/2021 7:00 PM NARCOTICS AGENT documented as of this encounter Care Teams Air Purifier Servicer Relationship Specialty Start Date End Date Shon Willis MD [address] [facility] [address] [facility] [address] MED[address]INE [place] [id number] PCP - General Internal Medicine 10/23/18 Govind Navarro MD [address] [place] [address] Medical Oncologist/Hematologis t Medical Oncology 02/09/20 Sher Xiong MD PhD [address] [place] [address] Consulting Physician Radiation Oncology 02/09/20 Russ Rand MD [address] [place] [address] Consulting Physician Otolaryngology 02/09/20 Deric Ingram MD [address] [place] [address] Consulting Physician Hematology and Oncology 03/11/20 03/29/21 Aamir Cox MD [address] [facility] [address] [place] [address] Radiation Oncology 03/13/20 Dariela Carlin, JOSE [address] [place] [address] Nurse Practitioner Medical Oncology 03/28/20 05/18/20 Abdulkadir Santos MD [address] [facility] [address] [place] [address] Medical Oncologist/Hematologis t Medical Oncology 11/17/20 Leon Arroyo MD [address] [place] [address] Consulting Physician Internal Medicine 03/31/21 Chidi Duke MD 1 [place] [address] Consulting Physician Internal Medicine 04/16/21 Arely Hartman MD [address] [place] [address] Consulting Physician Cardiovascular Disease 04/16/21 documented as of this encounter
--- OUTSIDE RECORDS SUMMARY | 2024-07-22 00:49 | XMS_ITS | Clinical Summary ---
Author Organization [facility] Address [address] [place] [address] Care Team Providers Care Waste Hand Name Role Phone Unavailable Primary Care Provider Unavailabl e Immunizations Immunization Administration Dates Next Due Covid-19 Vaccine, Vector-nr, Rs-ad26, Pf, 0.5 Ml (Yellow Chip/J&Servio) 12/02/2020 Social History Tobacco Use Types Packs/Day Years Used Date Smoking Tobacco: Never Assessed Sex and Gender Information Value Date Recorded Sex Assigned at Not on file Legal Sex Male 9:30 AM CDT Gender Identity Not on file Sexual Orientation Not on file Plan of Treatment Health Maintenance Due Date Last Done Comments Hepatitis C Virus (HCV) Screening 1940 Zoster Immunization (2 of 3) 03/14/2011 01/17/2011 Respiratory Syncytial Virus (RSV) Immunization (Adult) (1 - 1-dose 75+ series) 2013 SARS-COV-2 Immunization ( season) 2023 12/02/2020, 04/25/2020, 04/13/2020 Influenza Immunization (Season Ended) 2024 10/21/2020, 10/07/2019, 10/03/2018, Additional history exists Pneumococcal Immunization (50+ years) Completed 10/24/2017, 11/13/2014, 01/17/2011 DTaP/Tdap/Td Immunization Discontinued 10/07/2019 TdaP Immunization Completed 10/07/2019 Hepatitis B Immunization Aged Out No longer eligible based on patient's age to complete this topic Human Papillomavirus (HPV) Immunization Aged Out No longer eligible based on patient's age to complete this topic Meningococcal Immunization (ACWY) Aged Out No longer eligible based on patient's age to complete this topic Rotavirus Immunization Aged Out No lo nger eligible based on patient's age to complete this topic
--- OUTSIDE RECORDS SUMMARY | 2024-07-22 00:50 | XMS_ITS | Encounter Summary ---
Author Organization [facility] Address [address] [place] [address] Phone Care Team Providers Care Mobile Ui Designer Name Role Phone Shon Willis MD Primary Care Provider [phone] Govind Navarro MD Unavailable [phone] Sher Xiong MD PhD Unavailable [phone] Russ Rand MD Unavailable Deric Ingram MD Unavailable Aamir Cox MD Unavailable Jonelle Fair NP Unavailable [phone] Andres Arreloa MD Unavailable [phone] Dariela Carlin NP Unavailable Abdulkadir Santos MD Unavailable Leon Arroyo MD Unavailable [phone] Chidi Duke MD Unavailable [phone] Arely Hartman MD Unavailable + Encounter Details Date Type Department Care Team (Latest Contact Info) Description 01/28/2020 Orders Only [facility] Scanning, Provider Social History Tobacco Use Types Packs/Day Years Used Date Smoking Tobacco: Former Cigarettes Q uit: 2007 Smokeless Tobacco: Never Alcohol Use Standard Drinks/Week Comments Not Currently 0 (1 standard drink = 0.6 oz pur e alcohol) quit 1995 Sex and Gender Information Value Date Recorded Sex Assigned at Not on file Legal Sex Male 1:36 AM RECONCILIATION SPECIALIST Gender Identity Male 03/05/2020 2:02 PM RECONCILIATION SPECIALIST Sexual Orientation Straight 07/09/2018 9: 09 PM CDT documented as of this encounter Plan of Treatment Not on file documented as of this encounter Procedures Procedure Name Priority Date/Time Associated Diagnosis Comments SCAN - PATHOLOGY 01/28/2020 SCAN - LABS 01/28/2020 documented in this encounter Results * SCAN - LABS (01/28/2020) us Provider Scanning Final Result * SCAN - PATHOLOGY (01/28/2020) us Provider Scanning Final Result documented in this encounter Visit Diagnoses Not on filedocumented in this encounter Additional Health Concerns Infection Onset Date Last Indicated Resolved Time COVID: Suspected 04/05/2021 04/05/2021 04/05/2021 7:00 PM RECONCILIATION SPECIALIST documented as of this encounter Care Teams Mobile Ui Designer Relationship Specialty Start Date End Date Shon Willis MD [address] [place] [address] PCP - General Internal Medicine 10/23/18 Govind Navarro MD [address] [place] [address] Medical Oncologist/Hematologis t Medical Oncology 02/09/20 Sher Xiong MD PhD [address] [place] [address] Consulting Physician Radiation Oncology 02/09/20 Russ Rand MD [address] [place] [address] Consulting Physician Otolaryngology 02/09/20 Deric Ingram MD [address] [place] [address] Consulting Physician Hematology and Oncology 03/11/20 03/29/21 Aamir Cox MD [address] [facility] [address] [place] [address] Radiation Oncology 03/13/20 Jonelle Fair NP [address] [place] [address] Nurse Practitioner Medical Oncology 03/16/20 03/25/20 Andres Arreola MD [address] [place] [address] Consulting Physician Radiation Oncology 03/16/20 Dariela Carlin NP [address] [place] [address] Nurse Practitioner Medical Oncology 03/28/20 05/18/20 Abdulkadir Santos MD [address] [facility] [address] [place] [address] Medical Oncologist/Hematologis t Medical Oncology 11/17/20 Leon Arroyo MD [address] [place] [address] Consulting Physician Internal Medicine 03/31/21 Chidi Duke MD [address] [place] [address] Consulting Physician Internal Medicine 04/16/21 Arely Hartman MD [address] [place] [address] Consulting Physician Cardiovascular Disease 04/16/21 documented as of this encounter
--- OUTSIDE RECORDS SUMMARY | 2024-07-22 00:50 | XMS_ITS | Clinical Summary ---
Author Organization [facility] Address [address] [place] [address] Care Team Providers Care Trimmer Press Clippings Name Role Phone Shon Willis MD Primary Care Provider [phone] Govind Navarro MD Unavailable [phone] Sher Xiong MD PhD Unavailable [phone] Russ Rand MD Unavailable [phone] Aamir Cox MD Unavailable [phone] Abdulkadir Santos MD Unavailable Leon Arroyo MD Unavailable [phone] Chidi Duke MD Unavailable [phone] Allergies No known active allergies Medications folic acid (FOLVITE) 400 mcg tablet Take 1 tablet (400 mcg total) by mouth nightly 12/16/19 17 Active pravastatin (PRAVACHOL) 40 mg tabletIndication s:hyperlipidemia Take 1 tablet (40 mg total) by mouth every morning Active albuterol HFA (PROVENTIL HFA,VENTOLIN HFA,PROAIR HFA) 90 mcg/actuation inhalerIndicatio ns:Chronic Obstructive Pulmonary Disease Inhale 2 puffs every 4 (four) hours as needed Active cyanocobalamin, vitamin B-12, 1,000 mcg tablet extended releaseIndicatio ns:Prevention of Vitamin B12 Deficiency Take 1 tablet by mouth nightly Active fluticasone-umec lidin-vilanter (TRELEGY ELLIPTA) 100-62.5-25 mcg inhalerIndicatio ns:Maintenance Therapy for Asthma Inhale 1 puff every morning Active tamsulosin (FLOMAX) 0.4 mg extended release capsuleIndicatio ns:benign prostatic hyperplasia with lower urinary tract sx Take 1 capsule (0.4 mg total) by mouth nightly 12 04/04/19 19 Active glucosamine HCl/chondroitin chowdhury (GLUCOSAMINE-CHO NDROITIN ORAL)Indications :joints Take 1 Caplet by mouth every morning Active acetaminophen (TYLENOL) 500 mg tablet Take 1 tablet (500 mg total) by mouth every 6 (six) hours as needed for pain Active lidocaine-priloc omero (lidocaine-prilo bere) cream APPLY TO TOP OF PORT 1 HOUR PRIOR TO LAB DRAW, COVER GENTLY WITH SARAN WRAP, DO NOT RUB IN 30 g 3 02/16/19 22 Active dexAMETHasone (DECADRON) 4 mg tablet Take 2 tablets (8 mg total) by mouth 2 (two) times a day with meals 8mg starting day before chemo, day of and day after chemo, 8mg once daily 2 days after chemo and 4mg on days 3 & 4 after chemo. Take with/after food. Active cholecalciferol (VITAMIN D-3) 50,000 unit capsule 04/05/19 23 Active dutasteride (AVODART) 0.5 mg capsule 06/02/19 23 Active traMADoL (ULTRAM) 50 mg tablet Take by mouth every 6 (six) hours as needed 12/23/19 23 Active amoxicillin-clav ulanate (AUGMENTIN) 875-125 mg per tablet Take 1 tablet by mouth every 12 (twelve) hours 12/20/19 23 Active levothyroxine (SYNTHROID) 88 mcg tablet Take 1 tablet (88 mcg total) by mouth daily 05/16/19 24 Active OLANZapine (ZyPREXA) 2.5 mg tablet Take 1 tablet (2.5 mg total) by mouth nightly Active spironolactone (ALDACTONE) 25 mg tablet Take 1 tablet (25 mg total) by mouth every other day 10/19/19 24 Active apixaban (Eliquis) 5 mg tabletIndication s:Chronic diastolic heart failure (HCC),Paroxysmal atrial fibrillation (HCC) Take 1 tablet (5 mg total) by mouth 2 (two) times a day 180 tablet 3 11/27/19 24 Active gabapentin (NEURONTIN) 100 mg capsuleIndicatio ns:Nerve tremor TAKE 1 CAPSULE TWICE DAILY 180 capsule 3 11/27/19 24 Active albuterol 2.5 mg /3 mL (0.083 %) nebulizer solution 01/16/20 24 Active metoprolol XL (TOPROL-XL) 25 mg extended release tablet Take 0.5 tablets (12.5 mg total) by mouth daily 45 tablet 3 01/18/20 24 025 Active Farxiga 10 mg tablet TAKE 1 TABLET DAILY 90 tablet 3 02/12/[address] (PROTONIX) 40 mg EC tablet Take 1 tablet (40 mg total) by mouth daily for 5 days 5 tablet 05/22/19 25 Active Additional Information Patient not taking.Reported on 07/18/2024 furosemide (LASIX) 20 mg tablet Take 0.5 tablets (10 mg total) by mouth daily 07/19/19 25 Active furosemide (LASIX) 20 mg tablet Take 1 tablet (20 mg total) by mouth daily as needed (fluid retention, swelling) 01/08/20 24 025 Discontin ued(Reord er) Active Problems Problem Noted Date Diagnosed Date Pericardial effusion with cardiac tamponade 03/10 Assessment & Plan (04/13/2021 3:08 PM HEAD SAMPLER): Patient was found to have new A fib w/ RVR on 03/30, TTE was limited due to tachycardia but had no pleural effusion, decreased EF to 35-40% in the setting of RVR. - CT chest (03/25) at OSH showed moderate pericardial effusion with subsequent TTE showing concern for tamponade. Transferred to ICU and underwent pericardial drain placement on 04/06 with siginficant improvement of symptoms. Etiology thought to be likely 2/2 malignant despite negative cytology. Drain removed on 04/09. Repeat TTE 3-7 without repeat effusion. - Cardiac onc following, agree with plan for anticoagulation for PE, continued tele monitoring. - ASA 81 mg daily, pravastatin 40 mg daily - still with BLE 2+, but this appears chronic so will continue home PO lasix 40 daily - daily weights Assessment & Plan (04/10/2021 6:39 AM HEAD SAMPLER): Patient was found to have new A fib w/ RVR on 03/30, TTE was limited due to tachycardia but had no pleural effusion, decreased EF to 35-40% in the setting of RVR. - CT chest (03/25) at OSH showed moderate pericardial effusion with subsequent TTE showing concern for tamponade. Transferred to ICU and underwent pericardial drain placement on 04/06 with siginficant improvement of symptoms. Etiology thought to be likely 2/2 malignant despite negative cytology. Drain removed on 04/09 - Cardiac onc following, plan for anticoagulation for PE, continued tele monitoring and repeat echo on likely Monday - ASA 81 mg daily, pravastatin 40 mg daily, furosemide 40 mg daily Acute pulmonary embolism 04/05/2021 Assessment & Plan (04/13/2021 3:06 PM HEAD SAMPLER): CT chest (04/04) re-read by our radiologists showed new RUL PE. - transitioned to eliquis on 04-13 from heparin drip Assessment & Plan (04/10/2021 6:34 AM HEAD SAMPLER): CT chest (04/04) re-read by our radiologists showed new RUL PE.. - currently on heparin drip, will continue until repeat echo before transition to body coverer anticoagulation Stage 3b chronic kidney disease 04/05/2021 Assessment & Plan (04/11/2021 12:15 PM HEAD SAMPLER): Baseline Cr 1-1.1, seems to have worsening renal failure since 03/31 which has now normalized. - will monitor closely Assessment & Plan (04/10/2021 6:36 AM HEAD SAMPLER): Baseline Cr 1-1.1, seems to have worsening renal failure since 03/31 which has now normalized. - willctm HTN (hypertension) 04/05/2021 Assessment & Plan (04/11/2021 12:14 PM HEAD SAMPLER): Continue home metoprolol - continue lasix Assessment & Plan (04/10/2021 6:36 AM HEAD SAMPLER): Resume home metoprolol and lasix Paroxysmal atrial fibrillation with RVR 04/05/19 Assessment & Plan (04/11/2021 12:15 PM HEAD SAMPLER): Has new onset A fib w/ RVR on 03/30, started on metoprolol (cardizem discontinued) at [facility]. Self converted. Patient eventually developed A fib w/ RVR in the 140's-170's, that persisted at least >60 mins, w/ stable BP and no chest pain or AMS. Required metoprolol IV and ICU monitoring, now better controlled - continue metoprolol 25 BID, anticoagulation as per PE section Assessment & Plan (04/10/2021 6:35 AM HEAD SAMPLER): Has new onset A fib w/ RVR on 03/30, started on metoprolol (cardizem discontinued) at [facility]. Self converted. Patient eventually developed A fib w/ RVR in the 140's-170's, that persisted at least >60 mins, w/ stable BP and no chest pain or AMS. Required metoprolol IV and ICU monitoring, now better controlled - continue metoprolol 25 BID, anticoagulation as per PE section Peripheral neuropathy 04/05/2021 Assessment & Plan (04/11/2021 12:15 PM HEAD SAMPLER): Due to chemotherapy. - home vitamin B12 Assessment & Plan (04/05/2021 9:30 PM HEAD SAMPLER): Due to chemotherapy. - Resume home vitamin B12 COPD (chronic obstructive pulmonary disease) Assessment & Plan (04/11/2021 12:14 PM HEAD SAMPLER): On trilegy Ellipta and PRN albuterol at home. - cont home inhalers. Assessment & Plan (04/05/2021 9:50 PM HEAD SAMPLER): On trilegy Ellipta and PRN albuterol at home. - Resume home inhalers. 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 Started on DCRT w/ weekly cetuximab () then dc'ed due to severe anxiety. S/p PD (04/2020) and 8 cycles of pembrolizumab (). Pembro then held given progression of his lung cancer and he was started on palliative docetaxel w/ Neulasta support(s/p 7 cycles since 10/2020, last on 03/09/2021). Follows w/ Dr. Santos. 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 Started on DCRT w/ weekly cetuximab () then dc'ed due to severe anxiety. S/p PD (04/2020) and 8 cycles of pembrolizumab (). Pembro then held given progression of his lung cancer and he was started on palliative docetaxel w/ Neulasta support(s/p 7 cycles since 10/2020, last on 03/09/2021). Follows w/ Dr. Santos. - C/S med onc Melanoma of scalp 01/21/2020 Overview (01/21/2020): Added automatically from request for surgery [id number] Benign prostate hyperplasia 12/04/2019 Hypercholesteremia 12/04/2019 Insomnia 12/04/2019 Primary cancer of left upper lobe of lung 2017 Resolved Problems Problem Noted Date Diagnosed Date Resolved Date Severe malnutrition 04/06/2021 11/09/19 22 Assessment & Plan (04/11/2021 12:15 PM HEAD SAMPLER): Per RD note Dyspnea on exertion 04/05/2021 04/11/19 22 Assessment & Plan (04/05/2021 9:12 PM HEAD SAMPLER): Due to large pericardial effusion w/ cardiac tamponade physiology, multifocal pneumonia, new RUL PE (despite eliquis) in addition to severe emphysema and metastatic NSCLC. P/w dyspnea on exertion that started on Monday and has progressively worsened. Presented to [facility] ED (CBC, CMP, pro-BNP, Troponin, CT Chest PE) on 04/04: work up remarkable for leukocytosis, high pro-BNP, chronic He received lasix 80 mg IV, cefepime 1g and was placed on 2-3L of O2 for comfort (no e/o desaturation). - Continuous pulse ox, O2 therapy for SpO2>88% - RVP, MRSA swab, sputum cx. - CT chest PE done at OSH re-read by our radiologists and showed new multifocal pneumonia - Stat TTE showed large pericardial effusion w/ cardiac tamponade physiology. - Started on Zosyn for multifocal pneumonia. Will need 3D SPECIALIST eval due to concern for aspiration. - Cardio-oncology consulted for pericardiocentesis, will be done tomorrow AM as his last dose of Eliquis was on 04/04 in AM. - Hold off on therapeutic AC as INR is 2, and he is planned for pericardiocentesis. Multifocal pneumonia 04/05/2021 022 Assessment & Plan (04/05/2021 9:19 PM HEAD SAMPLER): CT chest (04/05) at OSH re-read by our radiologists showed multifocal pneumonia, likely due to aspiration. - As per above, RVP, sputum cx, started zosyn and will need 3D SPECIALIST eval once he is more stable. Non-small cell lung cancer 04/05/2021 0 05/21/2021 Assessment & Plan (04/11/2021 12:15 PM HEAD SAMPLER): Dx in 08/2007 w/ stage I disease S/p left upper lobectomy w/ pathology showing large cell carcinoma. S/p relapse in 10/2016 s/p 4 cyles of carboplatin/premetrexed (12/2016-02/2017), thoracic XRT () S/p relpase w/ new lesions in Rt lung (in 12/2017) s/p 4 cyles of carboplatin/premetrexed (12/2017-02/2018) followed by 30 cycles of maintenance premetrexed (dc'ed in 04/2020, after starting treatment for SCC of BOT w/ pembro). S/p disease progression and 7 cycles of docetaxel (10/2020, last on 03/09/21) Follows w/ Dr. Champagne. - C/S med onc Assessment & Plan (04/05/2021 9:30 PM HEAD SAMPLER): Dx in 08/2007 w/ stage I disease S/p left upper lobectomy w/ pathology showing large cell carcinoma. S/p relapse in 10/2016 s/p 4 cyles of carboplatin/premetrexed (12/2016-02/2017), thoracic XRT () S/p relpase w/ new lesions in Rt lung (in 12/2017) s/p 4 cyles of carboplatin/premetrexed (12/2017-02/2018) followed by 30 cycles of maintenance premetrexed (dc'ed in 04/2020, after starting treatment for SCC of BOT w/ pembro). S/p disease progression and 7 cycles of docetaxel (10/2020, last on 03/09/21) Follows w/ Dr. Champagne. - C/S med onc Leukocytosis 04/05/2021 11/08/2021 Thrombocytosis 04/05/2021 11/08/2021 Lung cancer 12/04/2019 05/24/2021 Lung mass 07/10/2014 05/24/2021 Standard chest x-ray abnormal 12/14/2012 11/08/2021 Encounters Date Type Department Care Team Description 07/18/2024 10:00 AM CDT Office Visit [facility] Cardiology [address] [facility] [address] [place] [phone] Milena Francisco NP Chronic diastolic heart failure (HCC); Primary hypertension; Paroxysmal atrial fibrillation (HCC); Acute congestive heart failure, unspecified heart failure type (HCC) 07/18/2024 Documentation [facility] Oncology [address] [facility] [address] [place] [address] Gail Pearson Rosibel 07/18/2024 Documentation [facility] Cardiology [address] [facility] [address] [place] [address] Elizabeth Medina, program clinician Clearance 06/20/2024 Telephone [facility] Cardiology [address] [facility] 8th [place] [address] [place] [address] Una Yañez 06/20/2024 Documentation [facility] Cardiology [address] [facility] [address] [facility] [place] [address] Elizabeth Medina, MUSA 06/04/2024 Orders Only [facility] Scanning, Provider 05/29/2024 Telephone [facility] Oncology [address] [place] [phone] Quynh Estrada 05/27/2024 Telephone [facility] Oncology [address] [place] [phone] Aisha Buckley, MUSA 05/24/2024 Telephone [facility] Oncology [address] [place] [phone] Bridgette Smith RN 05/21/2024 11:15 AM CDT Office Visit [facility] Oncology [address] [facility] [address] [place] [address] Abdulkadir Santos MD 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) (Primary Dx) 05/21/2024 9:45 AM CDT Office Visit [facility] Oncology [address] [place] [phone] Govind Navarro MD 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) (Primary Dx) 05/16/2024 7:53 AM CDT - 05/16/2024 11:59 PM CDT Hospital Encounter [facility] Radiology at [facility] [address] [place] [address] 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) Discharge Disposition: Discharge to home or self care 05/16/2024 7:53 AM CDT - 05/16/2024 11:59 PM CDT Hospital Encounter [facility] Radiology at [facility] [address] [place] [address] 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) Discharge Disposition: Discharge to home or self care 05/16/2024 7:30 AM CDT Clinical Support [address] [address] 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) from Last 3 Months Immunizations Immunization Administration Dates Next Due Influenza, Quadrivalent, Hig h Dose, Preservative Free, Intrr 10/07/2019 Influenza, Trivalent, High D ose, Split, Preservative Free, Intramuscular 10/03/2018,10/25/2017 Influenza, Unspecified 10/22/2020 Favio (J&J) SARS-CoV-2 Vaccination 04/25/2020 Pneumococcal Polysaccharide PPV23 10/25/2017 Tdap 10/07/2019 Surgical History Surgery Date Site/Laterality Comments PORT PLACEMENT CHEST >5 YEARS 03/02/2018 N/A right LUNG LOBECTOMY 08/07/2007 - 09/06/2007 TONSILLECTOMY AND ADENOIDECTOMY 02/06/1942 - 02/05/1943 COLONOSCOPY 02/06/2014 - 02/05/2015 Medical History Medical History Date Comments COPD (chronic obstructive pulmonary disease) wit h emphysema (HCC) Hypercholesteremia Hypertension History of cancer chemotherapy O ngoing Personal history of alcoholism (HCC) Metastatic large cell carcinoma to lung (HCC) 20 08 Recurrent CKD (chronic kidney disease) Paroxysmal atrial fibrillation (HCC) 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) Peripheral neuropathy Family History Medical History Relation Name Comments Breast cancer Mother Cancer Mother Relation Name Status Comments Mother Social History Tobacco Use Types Packs/Day Years Used Date Smoking Tobacco: Former Cigarettes Q uit: 2008 Passive Smoke Exposure: Past Smokeless Tobacco: Never Tobacco Cessation:Counseling Given: Not Answered Alcohol Use Standard Drinks/Week Comments Not Currently 0 (1 standard drink = 0.6 oz pur e alcohol) quit 1995 Social Connection and Isolat ion Panel [NHANES] Answer Date Recorded In a typical week, how many times do you talk on the phone with family, friends, or neighbors? More than three times a week 04/07/2021 How often do you get togethe r with friends or relatives? More than three times a week 04/07/2021 How often do you attend chur ch or protestant services? More than 4 times per year 04/07/2021 Do you belong to any clubs o r organizations such as moravian groups, unions, fraternal or athletic groups, or school groups? Yes 04/07/2021 How often do you attend meet ings of the clubs or organizations you belong to? More than 4 times per year 04/07/2021 Are you , , di vorced, , never , or living with a partner? 04/07/2021 AUDIT-C Answer Date Recorded Q1: How often do you have a drink containing alc ohol? Monthly or less 03/30/2021 Average Number of Drinks Not on file 022 Frequency of Binge Drinking Not on file 03/10 Overall Financial Resource Strain (CARDIA) Answe r Date Recorded How hard is it for you to pa y for the very basics like food, housing, medical care, and heating? Not hard at all 04/07/2021 PHQ-2 Answer Date Recorded PHQ-2 Total Score 0 04/07/2021 Hunger Vital Sign Answer Date Recorded Within the past 12 months, y ou worried that your food would run out before you got the money to buy more. Never true 04/08/19 22 Within the past 12 months, t he food you bought just didn't last and you didn't have money to get more. Never true 04/07/2021 PRAPARE - Transportation Answer Date Re corded In the past 12 months, has l ack of transportation kept you from medical appointments or from getting medications? No 03/2021 In the past 12 months, has l ack of transportation kept you from meetings, work, or from getting things needed for daily living? No 04/07/2021 Housing Stability Vital Sign Answer Doni e Recorded In the last 12 months, was t here a time when you were not able to pay the mortgage or rent on time? No 04/07/2021 In the last 12 months, how many places have you lived? 1 04/07/2021 In the last 12 months, was t here a time when you did not have a steady place to sleep or slept in a half-way (including now)? No 04/07/2021 Sex and Gender Information Value Date Recorded Sex Assigned at Not on file Legal Sex Male 1:36 AM HEAD SAMPLER Gender Identity Male 03/05/2020 2:02 PM HEAD SAMPLER Sexual Orientation Straight 07/09/2018 9: 09 PM CDT Obstetrics History Last Filed Vital Signs Vital Sign Reading Time Taken Comments Blood Pressure 127/62 07/18/2024 9:26 AM CDT Pulse 73 07/18/2024 9:26 AM CDT Temperature 36.7 C (98 F) 07/18/2024 9:26 AM CDT Respiratory Rate 15 05/21/2024 10:32 AM CDT Oxygen Saturation 97% 07/18/2024 9:26 AM CDT Inhaled Oxygen Concentration - - Weight 69.4 kg (153 lb) 07/18/2024 9:26 AM CDT Height 170.2 cm (5' 7) 07/18/2024 9:26 AM CDT Body Mass Index 23.96 07/18/2024 9:26 AM CDT Plan of Treatment Health Maintenance Due Date Last Done Comments Hepatitis B Screening 1958 Zoster Vaccine (1 of 2) 1988 Well Visit 65+ 05/04/2003 Pneumococcal vaccine 65+ (2 of 2 - PCV) 10/25/2018 10/25/2017 Depression Screening 04/05/2022 04/05/2021 Fall Risk Assessment 04/16/2022 04/16/2021 Covid-19 Vaccine (3 - 2023-2 5 season) 2023 12/02/2020, 04/25/2020 Influenza Vaccine (Season Ended) 2024 10/22/2020, 10/07/2019, 10/03/2018, Additional history exists DTaP/Tdap/Td Vaccine (2 - Td or Tdap) 10/06/2029 10/07/2019 Medical Devices Implanted Type Area Slimer Device Identifier Shelf Expiration Date Model / Serial / Lot 8fr Dignity Mid-Sized Power Port Implanted:Qty : 1 on 03/02/2018 at [facility] Catheter Right: Chest Medcomp [id number] 01/05/2022 / 0 [id number] / [id number] Procedures Procedure Name Priority Date/Time Associated Diagnosis Comments SCAN - RADIOLOGY/IMAGING 06/04/2024 CT CHEST ABDOMEN WO CONTRAST Schedule Routine, Read Routine (OP Routine) 05/16/2024 8:14 AM CDT 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) CT SOFT TISSUE NECK WO CONTRAST Schedule Routine, Read Routine (OP Routine) 05/16/2024 8:11 AM CDT 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) EGFR Routine 05/16/2024 7:42 AM CDT 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) DIFFERENTIAL AUTO Routine 05/16/2024 7:4 2 AM CDT 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) COMPREHENSIVE METABOLIC PANEL Routine 05/16/2024 7:42 AM CDT 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) CBC WITH AUTO DIFFERENTIAL Routine 05/16/2024 7:42 AM CDT 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) from Last 3 Months Results * SCAN - RADIOLOGY/IMAGING (06/04/2024) Anatomical Region Laterality Modality Other us Provider Scanning Final Result * CT Chest Abdomen WO Contrast (05/16/2024 8:14 AM CDT) Anatomical Region Laterality Modality Body N/A Computed Tomogra phy 05/16/2024 9:13 AM CDT Impressions 05/16/2024 9:41 AM CDT 1. Scattered small pulmonary nodules throughout the right lung, many of which are stable, however some of which are new, and may be infectious or inflammatory in etiology, and remain indeterminate for metastatic disease. Recommend attention on follow up. Unchanged mildly enlarged right paratracheal lymph node. 2. No evidence of metastatic disease in the abdomen. Dictated by: Govind Roberts MD The radiology attending physician has personally reviewed this study, and had reviewed and/or edited this written report and agrees with it. Electronically signed by: Clark Duron M.D. Narrative 05/16/2024 9:41 AM CDT EXAMINATION: Computed tomography of the chest and abdomen without intravenous contrast HISTORY: Lung cancer, observation. 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 COMPARISON: 02/23/2024 FINDINGS: Findings in the neck be more completely assessed on dedicated neck CT. Right internal jugular chest port catheter tip terminates at superior cavoatrial junction. Heart size is normal without pericardial effusion. Mildly enlarged right paratracheal lymph node is not significantly changed compared to prior measuring up to 1.3 cm in short axis. No new or enlarging thoracic lymph nodes. Densely calcified thoracic aorta which is nonaneurysmal. Main pulmonary artery is normal in caliber. Debris noted in the trachea distally. Changes of left upper lobectomy with similar volume loss, architectural distortion, and bronchiectasis in the parahilar left lower lobe, similar to prior examination. Peripheral reticulation in the left lung base. Severe emphysematous changes throughout the lungs. Again seen are numerous scattered nodules throughout the right lung, many of which are unchanged in size while some are new. For reference, there is a new right lower lobe nodule measuring 0.7 cm (series 4 image 101). Unchanged 7 mm right lower lobe seen at series 4 image 95). Unchanged 7 mm elmira-fissural nodule in the right upper lobe (series 4 image 57). No focal consolidation, pleural effusion, or pneumothorax. No focal noncontrast liver lesion. No biliary ductal dilation. Normal noncontrast appearance of the adrenal glands, spleen, and pancreas. Cholelithiasis without evidence of cholecystitis. Bilateral renal cysts. No hydronephrosis or nephrolithiasis. Imaged portions of the bladder are normal. Atherosclerotic calcifications of the abdominal aorta which is nonaneurysmal. No abdominal lymphadenopathy. Stomach is decompressed. The imaged small and large bowel are normal in caliber without evidence of obstruction. Imaged portions of the appendix are normal. No free fluid or free air in the abdomen. No suspicious osseous lesions. Procedure Note Clark Duron MD - 05/16/2024 EXAMINATION: Computed tomography of the chest and abdomen without intravenous contrast HISTORY: Lung cancer, observation. 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 COMPARISON: 02/23/2024 FINDINGS: Findings in the neck be more completely assessed on dedicated neck CT. Right internal jugular chest port catheter tip terminates at superior cavoatrial junction. Heart size is normal without pericardial effusion. Mildly enlarged right paratracheal lymph node is not significantly changed compared to prior measuring up to 1.3 cm in short axis. No new or enlarging thoracic lymph nodes. Densely calcified thoracic aorta which is nonaneurysmal. Main pulmonary artery is normal in caliber. Debris noted in the trachea distally. Changes of left upper lobectomy with similar volume loss, architectural distortion, and bronchiectasis in the parahilar left lower lobe, similar to prior examination. Peripheral reticulation in the left lung base. Severe emphysematous changes throughout the lungs. Again seen are numerous scattered nodules throughout the right lung, many of which are unchanged in size while some are new. For reference, there is a new right lower lobe nodule measuring 0.7 cm (series 4 image 101). Unchanged 7 mm right lower lobe seen at series 4 image 95). Unchanged 7 mm elmira-fissural nodule in the right upper lobe (series 4 image 57). No focal consolidation, pleural effusion, or pneumothorax. No focal noncontrast liver lesion. No biliary ductal dilation. Normal noncontrast appearance of the adrenal glands, spleen, and pancreas. Cholelithiasis without evidence of cholecystitis. Bilateral renal cysts. No hydronephrosis or nephrolithiasis. Imaged portions of the bladder are normal. Atherosclerotic calcifications of the abdominal aorta which is nonaneurysmal. No abdominal lymphadenopathy. Stomach is decompressed. The imaged small and large bowel are normal in caliber without evidence of obstruction. Imaged portions of the appendix are normal. No free fluid or free air in the abdomen. No suspicious osseous lesions. IMPRESSION: 1. Scattered small pulmonary nodules throughout the right lung, many of which are stable, however some of which are new, and may be infectious or inflammatory in etiology, and remain indeterminate for metastatic disease. Recommend attention on follow up. Unchanged mildly enlarged right paratracheal lymph node. 2. No evidence of metastatic disease in the abdomen. Dictated by: Govind Roberts MD The radiology attending physician has personally reviewed this study, and had reviewed and/or edited this written report and agrees with it. Electronically signed by: Clark Duron M.D. us Govind Navarro MD IMG CT PROCEDURES Final R esult * CT Neck Soft Tissue WO Contrast (05/16/2024 8:11 AM CDT) Anatomical Region Laterality Modality Head and Neck N/A Computed Tomogra phy 05/16/2024 9:32 AM CDT Impressions 05/16/2024 9:40 AM CDT Suboptimal for oncologic evaluation due to lack of intravenous contrast. 1. Unchanged ill-defined thickening involving the left base of the tongue, suboptimally evaluated due to lack of intravenous contrast correlate clinically. If patient cannot tolerate CT contrast, consider further evaluation with MR or PET/CT. 2. No unenhanced CT evidence of cervical lymphadenopathy size criteria. 3. Unchanged left nasal polypoid mass. Dictated by: Herman Guadarrama M.D. The radiology attending physician has personally reviewed this study, and had reviewed and/or edited this written report and agrees with it. Electronically signed by: Harini Trotter M.D. Narrative 05/16/2024 9:40 AM CDT EXAMINATION: CT of the neck without contrast HISTORY: 84 years-old Male with observation base of tongue cancer. 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 Additional history of prior lung cancer. TECHNIQUE: CT of the neck was performed according to the standard protocol without intravenous contrast. COMPARISON: Multiple prior CT soft tissue neck, most recently 02/23/2024. CT chest, abdomen, and pelvis earlier same day. FINDINGS: Ill-defined soft tissue fullness involving the base of the tongue, incompletely evaluated given lack of intravenous contrast. Scattered subcentimeter lymph nodes are seen in the neck. None are pathologically enlarged. The muscles of the neck are normal. Fascial planes are preserved and the deep spaces of the neck are normal. The visualized airway is widely patent. Patient is edentulous. Aortic as well as bilateral carotid bifurcation atherosclerotic calcification. Elongated and stylomastoid processes bilaterally, measuring up to 5.1 cm on the left. The base of the skull and the temporal bones are normal. Mild generalized parenchymal volume loss corresponding enlargement of the ventricular system. Changes of prior bilateral lens surgery. Intracranial atherosclerosis. Scattered mucosal thickening throughout the paranasal sinuses. Unchanged 1.6 x 1.0 cm polypoid mass in the left nasal cavity. Multilevel spondylosis without significant interval progression in degree of degenerative changes. Included portions of the chest are described in greater detail on same day CT chest, abdomen, and pelvis, including multiple lung nodules and radiation changes. Right chest port. Procedure Note Yan Trotter, Harini Nieves MD - 05/16/2024 EXAMINATION: CT of the neck without contrast HISTORY: 84 years-old Male with observation base of tongue cancer. 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 Additional history of prior lung cancer. TECHNIQUE: CT of the neck was performed according to the standard protocol without intravenous contrast. COMPARISON: Multiple prior CT soft tissue neck, most recently 02/23/2024. CT chest, abdomen, and pelvis earlier same day. FINDINGS: Ill-defined soft tissue fullness involving the base of the tongue, incompletely evaluated given lack of intravenous contrast. Scattered subcentimeter lymph nodes are seen in the neck. None are pathologically enlarged. The muscles of the neck are normal. Fascial planes are preserved and the deep spaces of the neck are normal. The visualized airway is widely patent. Patient is edentulous. Aortic as well as bilateral carotid bifurcation atherosclerotic calcification. Elongated and stylomastoid processes bilaterally, measuring up to 5.1 cm on the left. The base of the skull and the temporal bones are normal. Mild generalized parenchymal volume loss corresponding enlargement of the ventricular system. Changes of prior bilateral lens surgery. Intracranial atherosclerosis. Scattered mucosal thickening throughout the paranasal sinuses. Unchanged 1.6 x 1.0 cm polypoid mass in the left nasal cavity. Multilevel spondylosis without significant interval progression in degree of degenerative changes. Included portions of the chest are described in greater detail on same day CT chest, abdomen, and pelvis, including multiple lung nodules and radiation changes. Right chest port. IMPRESSION: Suboptimal for oncologic evaluation due to lack of intravenous contrast. 1. Unchanged ill-defined thickening involving the left base of the tongue, suboptimally evaluated due to lack of intravenous contrast correlate clinically. If patient cannot tolerate CT contrast, consider further evaluation with MR or PET/CT. 2. No unenhanced CT evidence of cervical lymphadenopathy size criteria. 3. Unchanged left nasal polypoid mass. Dictated by: Herman Guadarrama M.D. The radiology attending physician has personally reviewed this study, and had reviewed and/or edited this written report and agrees with it. Electronically signed by: Harini Trotter M.D. Govind Navarro MD IMG CT PROCEDURES Final R esult * (ABNORMAL) eGFR (05/16/2024 7:42 AM CDT) eGFR 53(L) >=60 mL/min/1. 73 m2 Comment: Interpretive Data Reference Interval Normal >/= 90 mL/min/1.73m2 Mildly decreased* 60 - 89 mL/min/1.73m2 Mildly to moderately decreased 45 - 59 mL/min/1.73m2 Moderately to severely decreased 30 - 44 mL/min/1.73m2 Severely decreased 15 - 29 mL/min/1.73m2 Kidney Failure < 15 mL/min/1.73m2 *Relative to young adult level Estimated glomerular filtration rate is determined by the 2020 CKD-EPI equation recommended by the National Kid[employer] (A Unifying Approach to GFR Estimation: Recommendations of the NKF-ASK Task Force on Reassessing the Inclusion of Race in Diagnosing Kidney Disease, JASN 2020). The CKD-EPI equation should not be used for patients with unstable renal function and has not been validated in children and those over 70. Current interpretive data was last reviewed 2020. Blood 05/16/2024 7:42 AM CDT 05/16/2024 7:42 AM CDT us Govind Navarro MD LAB BLOOD ORDERABLES Kaylin dre Result [facility] Department [place] [address] * (ABNORMAL) Differential, auto (05/16/2024 7:42 AM CDT) Neutrophil abs 6.66(H) 1.50 - 6.50 K/cumm Comment:Testing performed by : [address] [address] Imm gran abs 0.03 0.00 - 0.10 K/cumm [facility] Lymphocyte abs 1.01 0.80 - 3.30 K/cumm [facility] Monocyte abs 1.01(H) 0.20 - 0.80 K/cumm [facility] Eosinophil abs 0.03 0.00 - 0.50 K/cumm [facility] Basophil abs 0.02 0.00 - 0.10 K/cumm [facility] Neutrophil pct 76.2 % [facility] Comment: Interpretive Data Percent cell count reference ranges are not reported, since discordance with absolute values may lead to misinterpretation of CBC data. Current Interpretive Data was last revised on 2017. Imm gran pct 0.3 % [facility] Comment: Interpretive Data Percent cell count reference ranges are not reported, since discordance with absolute values may lead to misinterpretation of CBC data. Current Interpretive Data was last revised on 2017. Lymphocyte pct 11.5 % [facility] Comment: Interpretive Data Percent cell count reference ranges are not reported, since discordance with absolute values may lead to misinterpretation of CBC data. Current Interpretive Data was last revised on 2017. Monocyte pct 11.5 % [facility] Comment: Interpretive Data Percent cell count reference ranges are not reported, since discordance with absolute values may lead to misinterpretation of CBC data. Current Interpretive Data was last revised on 2017. Eosinophil pct 0.3 % [facility] Comment: Interpretive Data Percent cell count reference ranges are not reported, since discordance with absolute values may lead to misinterpretation of CBC data. Current Interpretive Data was last revised on 2017. Basophil pct 0.2 % [facility] Comment: Interpretive Data Percent cell count reference ranges are not reported, since discordance with absolute values may lead to misinterpretation of CBC data. Current Interpretive Data was last revised on 2017. Blood 05/16/2024 7:42 AM CDT 05/16/2024 7:42 AM CDT us Govind Navarro MD LAB BLOOD ORDERABLES Kaylin erickson Result [facility] Department [place] [address] * (ABNORMAL) CBC with auto differential (05/16/2024 7:42 AM CDT) WBC 8.76 3.80 - 9.90 K/cumm Comment:Testing performed by : [address] [address] Hgb 10.1(L) 13.0 - 17.5 g/dL [facility] Comment:Testing performed by : [address] [address] Hct 35.1(L) 38.9 - 50.3 % [facility] Comment:Testing performed by : [address] [address] Plt 251 150 - 400 K/cumm [facility] Comment:Testing performed by : [address] [address] MPV 9.5 9.1 - 12.3 fL [facility] RBC 5.34 4.30 - 5.80 M/cumm [facility] MCV 65.7(L) 81.3 - 96.4 fL [facility] MCH 18.9(L) 27.1 - 33.3 pg [facility] MCHC 28.8(L) 32.3 - 35.7 g/dL [facility] RDW CV 18.9(H) 11.1 - 14.9 % [facility] RDW SD 43.0 35.7 - 48.1 fL [facility] NRBC abs 0.00 0.00 - 0.01 K/cumm [facility] ANC Prelim 6.66(H) 1.50 - 6.50 K/cumm [facility] Comment: Interpretive Data The rapid ANC is a preliminary automated count and may vary from the final ANC (Neut Abs) reported in the WBC differential that follows. Current interpretive data was last revised 2024. Blood 05/16/2024 7:42 AM CDT 05/16/2024 7:42 AM CDT us Govind Navarro MD LAB BLOOD ORDERABLES Kaylin erickson Result [facility] Department [place] [address] * (ABNORMAL) Comprehensive metabolic panel (05/16/2024 7:42 AM CDT) Sodium 137 135 - 145 mmol/L Comment:Testing performed by : [facility], [address] [place] [id number] Potassium, pl 4.9 3.3 - 4.9 mmol/L [facility] Chloride 104 97 - 110 mmol/L [facility] CO2 26 22 - 32 mmol/L [facility] Anion gap 7 2 - 15 mmol/L [facility] BUN 16 6 - 25 mg/dL [facility] Creatinine 1.32(H) 0.80 - 1.30 mg/dL [facility] Glucose 88 70 - 199 mg/dL [facility] Comment: Interpretive Data Fasting glucose >/= 126 mg/dl is diagnostic for diabetes. Fasting is defined as no caloric intake for at least 8 hours. Fasting glucose between 100 mg/dl to 125 mg/dl is diagnostic of prediabetes. In a patient with classic symptoms of hyperglycemia or hyperglycemic crisis, a random glucose >/= 200 mg/dl is diagnostic for diabetes. In the absence of unequivocal hyperglycemia, results should be confirmed by repeat testing. The classification and Diagnosis of Diabetes Diabetes Care 202; 46: S19-S40. Current interpretive data was last revised 2022. Calcium 9.0 8.5 - 10.3 mg/dL [facility] Bilirubin, total 0.3 0.1 - 1.2 mg/dL [facility] Protein, pl 6.7 6.5 - 8.5 g/dL [facility] Albumin 3.7 3.5 - 5.0 g/dL [facility] Alk phos 34(L) 40 - 130 Units/L [facility] ALT 14 7 - 55 Units/L [facility] AST 17 10 - 50 Units/L [facility] Blood 05/16/2024 7:42 AM CDT 05/16/2024 7:42 AM CDT us Govind Navarro MD LAB BLOOD ORDERABLES Kaylin erickson Result Performing Organization Address City/State/[facility] Co de Phone Number [facility] [place] [address] from Last 3 Months Insurance [employer] MEDICARE ADVANTAGE AETNA MEDICARE AETNA MEDICARE Advance Directives For more information, please contact: [phone] Documents on File Type Date Recorded Patient System Archive Analyst Expl anation ADVANCE DIRECTIVE 01/28/2020 5:40 AM * Full Code (Latest Code Status on File) Date Activated Date Inactivated Comments 04/05/2021 7:08 AM 04/16/2021 9:54 PM * Full Code Date Activated Date Inactivated Comments 03/30/2021 6:30 PM 03/31/2021 3:43 PM * Full Code Date Activated Date Inactivated Comments 03/30/2021 2:20 PM 03/30/2021 6:30 PM * Full Code Date Activated Date Inactivated Comments 03/02/2018 8:50 AM 03/03/2018 4:33 AM * Full Code Date Activated Date Inactivated Comments 03/02/2018 8:50 AM 03/02/2018 8:50 AM Healthcare Agents on File Name Relationship Healthcare Agent Relationship Communication Shahla Alarcon Friend Health Care Agent Thania Culver Alternate Health Care Agent Care Teams Trimmer Press Clippings Relationship Specialty Start Date End Date Shon Willis MD [address] [place] [address] PCP - General Internal Medicine 10/23/18 Govind Navarro MD [address] [place] [address] Medical Oncologist/Upholstery Tech Medical Oncology 02/09/20 Sher Xiong MD PhD [address] [place] [address] Consulting Physician Radiation Oncology 02/09/20 Russ Rand MD [address] [place] [address] Consulting Physician Otolaryngology 02/09/20 Aamir Cox MD [address] [place] [address] Radiation Oncology 03/13/20 Abdulkadir Santos MD [address] [place] [address] Medical Oncologist/Upholstery Tech Medical Oncology 11/17/20 Leon Arroyo MD [address] [facility] [address] [place] [address] Consulting Physician Internal Medicine 03/31/21 Chidi Duke MD [address] [place] [address] Consulting Physician Internal Medicine 04/16/21
--- OUTSIDE RECORDS SUMMARY | 2024-07-22 00:50 | XMS_ITS | Encounter Summary ---
Author Organization [facility] Address [address] [place] [address] Phone Care Team Providers Care Animal Trapper Name Role Phone Shon Willis MD Primary Care Provider [phone] Govind Navarro MD Unavailable [phone] Sher Xiong MD PhD Unavailable [phone] Russ Rand MD Unavailable [phone] Aamir Cox MD Unavailable [phone] Abdulkadir Santos MD Unavailable Leon Arroyo MD Unavailable [phone] Chidi Duke MD Unavailable Encounter Details Date Type Department Care Team (Latest Contact Info) Description 06/04/2024 Orders Only [facility] Scanning, Provider Social History Tobacco Use Types Packs/Day Years Used Date Smoking Tobacco: Former Cigarettes Q uit: 2008 Passive Smoke Exposure: Past Smokeless Tobacco: Never Alcohol Use Standard Drinks/Week [...] often do you attend chur ch or shinto services? More than 4 times per year 04/07/2021 Do you belong to any clubs o r organizations such as shinto groups, unions, fraternal or athletic groups, or [...] place to sleep or slept in a fdc (including now)? No 04/07/2021 Sex and Gender Information Value Date Recorded Sex Assigned at Not on file Legal Sex Male 1:36 AM CIVIL ENGINEERING DRAFTSPERSON Gender Identity Male 03/05/2020 2:02 PM CIVIL ENGINEERING DRAFTSPERSON Sexual Orientation Straight 07/09/2018 9: 09 PM CDT documented as of this encounter Plan of Treatment Not on file documented as of this encounter Procedures Procedure Name Priority Date/Time Associated Diagnosis Comments SCAN - RADIOLOGY/IMAGING 06/04/2024 documented in this encounter Results * SCAN - RADIOLOGY/IMAGING (06/04/2024) Anatomical Region Laterality Modality Other us Provider Scanning Final Result documented in this encounter Visit Diagnoses Not on filedocumented in this encounter Care Teams Animal Trapper Relationship Specialty Start Date End Date Shon Willis MD [address] INTERNAL MEDICINE [place] [id number] PCP - General Internal Medicine 10/23/18 Govind Navarro MD [address] [place] [address] Medical Oncologist/Public Relations Officer Medical Oncology 02/09/20 Sher Xiong MD PhD [address] [place] [address] Consulting Physician Radiation Oncology 02/09/20 Russ Rand MD [address] [place] [address] Consulting Physician Otolaryngology 02/09/20 Aamir Cox MD [address] [facility] [address] [place] [address] Radiation Oncology 03/13/20 [place] [address] [place] [address] [address] [place] [address] Medical Oncologist/Public Relations Officer Medical Oncology 11/17/20 Leon Arroyo MD [address] [facility] [address] [place], [place] [id number] Consulting Physician Internal Medicine 03/31/21 Chidi Duke MD [address] [place] [address] Consulting Physician Internal Medicine 04/16/21 documented as of this encounter
--- OUTSIDE RECORDS SUMMARY | 2024-07-22 00:50 | XMS_ITS ---
Author Organization [facility] Address [address] [place] [address] Care Team Providers Care Hadoop Analyst Name Role Phone Shon Willis MD Primary Care Provider [phone] Govind Navarro MD Unavailable [phone] Sher Xiong MD PhD Unavailable [phone] Russ Rand MD Unavailable [phone] Aamir Cox MD Unavailable [phone] Abdulkadir Santos MD Unavailable Leon Arroyo MD Unavailable [phone] Chidi Duke MD Unavailable Active Problems Problem Noted Date Diagnosed Date Pericardial effusion with cardiac tamponade 03/10 Assessment & Plan (04/13/2021 3:08 PM INFORMATION SYSTEMS SECURITY OFFICER): Patient was found to have new A [...] cytology. Drain removed on 04/09. Repeat TTE 04-12 without repeat effusion. - Cardiac onc following, agree with plan for anticoagulation for PE, continued tele monitoring. - ASA 81 mg daily, pravastatin 40 mg daily - still with BLE 2+, but this appears chronic so will continue home PO lasix 40 daily - daily weights Assessment & Plan (04/10/2021 6:39 AM INFORMATION SYSTEMS SECURITY OFFICER): Patient was found to have new A [...] 04/05/2021 Assessment & Plan (04/13/2021 3:06 PM INFORMATION SYSTEMS SECURITY OFFICER): CT chest (04/04) re-read by our radiologists showed new RUL PE. - transitioned to eliquis on 04-13 from heparin drip Assessment & Plan (04/10/2021 6:34 AM INFORMATION SYSTEMS SECURITY OFFICER): CT chest (04/04) re-read by our radiologists showed new RUL PE.. - currently on heparin drip, will continue until repeat echo before transition to care home anticoagulation Stage 3b chronic kidney disease 04/05/2021 Assessment & Plan (04/11/2021 12:15 PM INFORMATION SYSTEMS SECURITY OFFICER): Baseline Cr 1-1.1, seems to have worsening renal failure since 03/31 which has now normalized. - will monitor closely Assessment & Plan (04/10/2021 6:36 AM INFORMATION SYSTEMS SECURITY OFFICER): Baseline Cr 1-1.1, seems to have worsening renal failure since 03/31 which has now normalized. - willctm HTN (hypertension) 04/05/2021 Assessment & Plan (04/11/2021 12:14 PM INFORMATION SYSTEMS SECURITY OFFICER): Continue home metoprolol - continue lasix Assessment & Plan (04/10/2021 6:36 AM INFORMATION SYSTEMS SECURITY OFFICER): Resume home metoprolol and lasix Paroxysmal atrial fibrillation with RVR 04/05/19 Assessment & Plan (04/11/2021 12:15 PM INFORMATION SYSTEMS SECURITY OFFICER): Has new onset A fib w/ RVR on 03/30, started on metoprolol (cardizem discontinued) at [facility]. Self converted. Patient eventually developed A fib w/ RVR in the 140's-170's, that persisted at least >60 mins, w/ stable BP and no chest pain or AMS. Required metoprolol IV and ICU monitoring, now better controlled - continue metoprolol 25 BID, anticoagulation as per PE section Assessment & Plan (04/10/2021 6:35 AM INFORMATION SYSTEMS SECURITY OFFICER): Has new onset A fib w/ RVR on 03/30, started on metoprolol (cardizem discontinued) at [facility]. Self converted. Patient eventually developed A fib w/ RVR in the 140's-170's, that persisted at least >60 mins, w/ stable BP and no chest pain or AMS. Required metoprolol IV and ICU monitoring, now better controlled - continue metoprolol 25 BID, anticoagulation as per PE section Peripheral neuropathy 04/05/2021 Assessment & Plan (04/11/2021 12:15 PM INFORMATION SYSTEMS SECURITY OFFICER): Due to chemotherapy. - home vitamin B12 Assessment & Plan (04/05/2021 9:30 PM INFORMATION SYSTEMS SECURITY OFFICER): Due to chemotherapy. - Resume home vitamin B12 COPD (chronic obstructive pulmonary disease) Assessment & Plan (04/11/2021 12:14 PM INFORMATION SYSTEMS SECURITY OFFICER): On trilegy Ellipta and PRN albuterol at home. - cont home inhalers. Assessment & Plan (04/05/2021 9:50 PM INFORMATION SYSTEMS SECURITY OFFICER): On trilegy Ellipta and PRN albuterol at home. - Resume home inhalers. 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 Started on DCRT w/ weekly cetuximab (-03/2020) then dc'ed due to severe anxiety. S/p PD (04/2020) and 8 cycles of pembrolizumab (). Pembro then held given progression of his lung cancer and he was started on palliative docetaxel w/ Neulasta support(s/p 7 cycles since 10/2020, last on 03/09/2021). Follows w/ Dr. Santos. - C/S med onc Melanoma of scalp 01/21/2020 Overview (01/21/2020): Added automatically from request for surgery [id number] Benign prostate hyperplasia 12/04/2019 Hypercholesteremia 12/04/2019 Insomnia 12/04/2019 Primary cancer of left upper lobe of lung 2017 Current Treatment and Therapy Plans IV MAINTENANCE THERAPY PLAN* Plan Start Date:04/17/2018 Plan Provider:Govind Navarro MD Linked Problems 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) Treatment Medications No medications scheduled. IV MAINTENANCE THERAPY PLAN* Plan Start Date:11/17/2020 Plan Provider:Deric Ingram MD Linked Problems 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) Treatment Medications No medications scheduled. Past Treatment and Therapy Plans Oncology Chemotherapy Treatment Plan Name Start Date Discontinue Date Treatment Medications Discontinue Reason Plan Provider Cycles Pembrolizumab 21 Day Cycles 1 10/15/2020 pembrolizumab (KEYTRUDA)pembr olizumab (KEYTRUDA) IVPB in 100 mL Progressive Disease Deric Ingram MD 8 of 24 cycles started Pemetrexed 21 Day Cycles - Non-Small Cell Lung Cancer 9 04/14/2020 PEMEtrexed (ALIMTA)PEMEtre xed (ALIMTA) IVPB (J9305) Therapy Govind Evans rn, MD 31 of 34 cycles started Pemetrexed / CARBOplatin 21 Day Cycles - Non-Small Cell Lung 12/20/19 18 03/06/2018 CARBOplatin (PARAPLATIN)CAR BOplatin (PARAPLATIN) IVPB in 250 mLPEMEtrexed (ALIMTA)PEMEtre xed (ALIMTA) IVPB (J9305) Therapy Govind Evans rn, MD 4 of 4 cycles started Oncology Treatment (2) Plan Name Start Date Discontinue Date Treatment Medications Discontinue Reason Plan Provider Cycles DOCEtaxel 21 Day Cycles - Non-Small Cell Lung 1 02/03/2023 DOCEtaxel (TAXOTERE)DOCE taxel (TAXOTERE) IVPB in 250 mL (vial 20mg/mL) Automatic discontinuation of dormant plans Armida walter, MD Govind 8 of 10 cycles started Cetuximab Weekly (D1, D8, D15, D22) 28 day Cycles - Head and Neck 1 04/13/2020 cetuximab (ERBITUX) Toxicity/Complicat Deric Rodriguez MD 1 of 2 cycles started Radiation Treatments * Course [id number]_HN_202003/02/2020 - 03/20/2020 Treatment Period Energy Fraction Dose Fractions Total Dose Plans Planned HN_BILAT 03/02/2020 - 03/20/2020 200 14 / 7,000 Reference Points Delivered [id number] 03/02/2020 - 03/20/2020 2,800 * Course C1 LUNG 201703/23/2017 - 02/28/2020 Treatment Period Energy Fraction Dose Fractions Total Dose Plans Planned L HILUM 03/24/2017 - 02/28/2020 300 15 / 4,500 RT LUNG 03/24/2017 - 02/28/2020 300 15 / 4,500 Reference Points Delivered DPV LT LUNG 03/24/2017 - 02/28/2020 4,500 DPV RT LUNG 03/24/2017 - 02/28/2020 4,500 Lifetime Dose Tracking * Chemical Lifetime Dose Automatic Entry Manual Entr y Fluoro Time 0.3 minutes 0.3 minutes 0 minutes Air kerma at the reference point (Ka,r) 4.37 mGy 2 .37 mGy 2 mGy DLP 36,629.4 mGycm 36,629.4 mGycm 0 mGycm Resolved Problems Problem Noted Date Diagnosed Date Resolved Date Severe malnutrition 04/06/2021 11/09/19 Assessment & Plan (04/11/2021 12:15 PM INFORMATION SYSTEMS SECURITY OFFICER): Per RD note Dyspnea on exertion 04/05/2021 04/11/19 Assessment & Plan (04/05/2021 9:12 PM INFORMATION SYSTEMS SECURITY OFFICER): Due to large pericardial effusion w/ cardiac tamponade physiology, multifocal pneumonia, new RUL PE (despite eliquis) in addition to severe emphysema and metastatic NSCLC. P/w dyspnea on exertion that started on Monday and has progressively worsened. Presented to [facility] ED (CBC, CMP, pro-BNP, Troponin, CT Chest [...] on Zosyn for multifocal pneumonia. Will need GLASS PROCESSING WORKER eval due to concern for aspiration. - Cardio-oncology consulted for pericardiocentesis, will be done tomorrow AM as his last dose of Eliquis was on 04/04 in AM. - Hold off on therapeutic AC as INR is 2, and he is planned for pericardiocentesis. Multifocal pneumonia 04/05/2021 022 Assessment & Plan (04/05/2021 9:19 PM INFORMATION SYSTEMS SECURITY OFFICER): CT chest (04/05) at OSH re-read by our radiologists showed multifocal pneumonia, likely due to aspiration. - As per above, RVP, sputum cx, started zosyn and will need GLASS PROCESSING WORKER eval once he is more stable. Non-small cell lung cancer 04/05/2021 0 05/21/2021 Assessment & Plan (04/11/2021 12:15 PM INFORMATION SYSTEMS SECURITY OFFICER): Dx in 08/2007 w/ stage I disease S/p left upper lobectomy w/ pathology showing large cell carcinoma. S/p relapse in 10/2016 s/p 4 cyles of carboplatin/premetrexed (12/2016-02/2017), thoracic XRT (-04/2017) S/p relpase w/ new lesions in Rt lung (in 12/2017) s/p 4 cyles of carboplatin/premetrexed (12/2017-02/2018) followed by 30 cycles of maintenance premetrexed (dc'ed in 04/2020, after starting treatment for SCC of BOT w/ pembro). S/p disease progression and 7 cycles of docetaxel (10/2020, last on 03/09/21) Follows w/ Dr. Champagne. - C/S med onc Assessment & Plan (04/05/2021 9:30 PM INFORMATION SYSTEMS SECURITY OFFICER): Dx in 08/2007 w/ stage I disease S/p left upper lobectomy w/ pathology showing large cell carcinoma. S/p relapse in 10/2016 s/p 4 cyles of carboplatin/premetrexed (12/2016-02/2017), thoracic XRT (-04/2017) S/p relpase w/ new lesions in Rt [...]
--- OUTSIDE RECORDS SUMMARY | 2024-07-22 00:50 | XMS_ITS | Referral Summary ---
Author Organization [facility] Address [address] [place] [address] Care Team Providers Care Rn Medical Inpatient Services Name Role Phone Shon Willis MD Primary Care Provider [phone] Govind Navarro MD Unavailable Sher Xiong MD PhD Unavailable [phone] Russ Rand MD Unavailable Aamir Cox MD Unavailable Abdulkadir Santos MD Unavailable Leon Arroyo MD Unavailable Chidi Duke MD Unavailable Encounters Date Type Department Care Team Description 07/18/2024 Documentation [facility] Oncology [address] [facility] Floor 8 [place] [phone] Gail Pearson RMA 07/18/2024 Documentation [facility] Cardiology [address] [facility] [address] [facility] [place] [address] Elizabeth Medina RN Cardiac Clearance 07/18/2024 10:00 AM CDT Office Visit [facility] Cardiology [address] [facility] [address] [facility] [place] [address] Milena Francisco NP Chronic diastolic heart failure (HCC); Primary hypertension; Paroxysmal atrial fibrillation (HCC); Acute congestive heart failure, unspecified heart failure type (HCC) 06/20/2024 Telephone [facility] Cardiology [address] [facility] 8th [place] [address] [place] [address] YañezWoody rizvion 06/20/2024 Documentation [facility] Cardiology [address] [facility] [address] [place] [address] Elizabeth Medina, MUSA 06/04/2024 Orders Only [facility] Scanning, Provider 05/29/2024 Telephone [facility] Oncology [address] [place] [phone] Quynh Estrada 05/27/2024 Telephone [facility] Oncology [address] [place] [phone] Aisha Buckley RN 05/24/2024 Telephone [facility] Oncology [address] [place] [phone] Bridgette Smith RN 05/21/2024 11:15 AM CDT Office Visit [facility] Oncology [address] [facility] [address] [place] [address] Abdulkadir Santos MD 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) (Primary Dx) 05/21/2024 9:45 AM CDT Office Visit [facility] Oncology [address] [place] [phone] Govind Navarro MD 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) (Primary Dx) 05/16/2024 7:53 AM CDT - 05/16/2024 11:59 PM CDT Hospital Encounter [facility] Radiology at [facility] [address] [place] [address] 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) Discharge Disposition: Discharge to home or self care 05/16/2024 7:30 AM CDT Clinical Support [address] [address] 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) 05/16/2024 7:53 AM CDT - 05/16/2024 11:59 PM CDT Hospital Encounter [facility] at [place] [facility] [address] [place] [address] 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) Discharge Disposition: Discharge to home or self care from Last 3 Months Allergies No known active allergies Medications folic [...] 03/10 Assessment & Plan (04/13/2021 3:08 PM DECONTAMINATION WORKER): Patient was found to have new A [...] cytology. Drain removed on 04/09. Repeat TTE 3- without repeat effusion. - Cardiac onc following, agree with plan for anticoagulation for PE, continued tele monitoring. - ASA 81 mg daily, pravastatin 40 mg daily - still with BLE 2+, but this appears chronic so will continue home PO lasix 40 daily - daily weights Assessment & Plan (04/10/2021 6:39 AM DECONTAMINATION WORKER): Patient was found to have new A [...] 04/05/2021 Assessment & Plan (04/13/2021 3:06 PM DECONTAMINATION WORKER): CT chest (04/04) re-read by our radiologists showed new RUL PE. - transitioned to eliquis on 04-13 from heparin drip Assessment & Plan (04/10/2021 6:34 AM DECONTAMINATION WORKER): CT chest (04/04) re-read by our radiologists showed new RUL PE.. - currently on heparin drip, will continue until repeat echo before transition to longwall foreman anticoagulation Stage 3b chronic kidney disease 04/05/2021 Assessment & Plan (04/11/2021 12:15 PM DECONTAMINATION WORKER): Baseline Cr 1-1.1, seems to have worsening renal failure since 03/31 which has now normalized. - will monitor closely Assessment & Plan (04/10/2021 6:36 AM DECONTAMINATION WORKER): Baseline Cr 1-1.1, seems to have worsening renal failure since 03/31 which has now normalized. - willctm HTN (hypertension) 04/05/2021 Assessment & Plan (04/11/2021 12:14 PM DECONTAMINATION WORKER): Continue home metoprolol - continue lasix Assessment & Plan (04/10/2021 6:36 AM DECONTAMINATION WORKER): Resume home metoprolol and lasix Paroxysmal atrial fibrillation with RVR 04/05/19 Assessment & Plan (04/11/2021 12:15 PM DECONTAMINATION WORKER): Has new onset A fib w/ RVR on 03/30, started on metoprolol (cardizem discontinued) at [facility]. Self converted. Patient eventually developed A fib w/ RVR in the 140's-170's, that persisted at least >60 mins, w/ stable BP and no chest pain or AMS. Required metoprolol IV and ICU monitoring, now better controlled - continue metoprolol 25 BID, anticoagulation as per PE section Assessment & Plan (04/10/2021 6:35 AM DECONTAMINATION WORKER): Has new onset A fib w/ RVR on 03/30, started on metoprolol (cardizem discontinued) at [facility]. Self converted. Patient eventually developed A fib w/ RVR in the 140's-170's, that persisted at least >60 mins, w/ stable BP and no chest pain or AMS. Required metoprolol IV and ICU monitoring, now better controlled - continue metoprolol 25 BID, anticoagulation as per PE section Peripheral neuropathy 04/05/2021 Assessment & Plan (04/11/2021 12:15 PM DECONTAMINATION WORKER): Due to chemotherapy. - home vitamin B12 Assessment & Plan (04/05/2021 9:30 PM DECONTAMINATION WORKER): Due to chemotherapy. - Resume home vitamin B12 COPD (chronic obstructive pulmonary disease) Assessment & Plan (04/11/2021 12:14 PM DECONTAMINATION WORKER): On trilegy Ellipta and PRN albuterol at home. - cont home inhalers. Assessment & Plan (04/05/2021 9:50 PM DECONTAMINATION WORKER): On trilegy Ellipta and PRN albuterol at home. - Resume home inhalers. 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 Started on DCRT w/ weekly cetuximab (-03/2020) then dc'ed due to severe anxiety. S/p PD (04/2020) and 8 cycles of pembrolizumab (-09/2020). Pembro then held given progression of his lung cancer and he was started on palliative docetaxel w/ Neulasta support(s/p 7 cycles since 10/2020, last on 03/09/2021). Follows w/ Dr. Santos. 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 Started on DCRT w/ weekly cetuximab (-03/2020) then dc'ed due to severe anxiety. S/p PD (04/2020) and 8 cycles of pembrolizumab (-09/2020). Pembro then held given progression of his lung cancer and he was started on palliative docetaxel w/ Neulasta support(s/p 7 cycles since 10/2020, last on 03/09/2021). Follows w/ Dr. Santos. - C/S med onc Melanoma of scalp 01/21/2020 Overview (01/21/2020): Added automatically from request for surgery [id number] Benign prostate hyperplasia 12/04/2019 Hypercholesteremia 12/04/2019 Insomnia 12/04/2019 Primary cancer of left upper lobe of lung 2017 Resolved Problems Problem Noted Date Diagnosed Date Resolved Date Severe malnutrition 04/06/2021 11/09/19 Assessment & Plan (04/11/2021 12:15 PM DECONTAMINATION WORKER): Per RD note Dyspnea on exertion 04/05/2021 04/11/19 Assessment & Plan (04/05/2021 9:12 PM DECONTAMINATION WORKER): Due to large pericardial effusion w/ cardiac tamponade physiology, multifocal pneumonia, new RUL PE (despite eliquis) in addition to severe emphysema and metastatic NSCLC. P/w dyspnea on exertion that started on Monday and has progressively worsened. Presented to [facility] ED (CBC, CMP, pro-BNP, Troponin, CT [...] on Zosyn for multifocal pneumonia. Will need CHARGE OPERATOR eval due to concern for aspiration. - Cardio-oncology consulted for pericardiocentesis, will be done tomorrow AM as his last dose of Eliquis was on 04/04 in AM. - Hold off on therapeutic AC as INR is 2, and he is planned for pericardiocentesis. Multifocal pneumonia 04/05/2021 022 Assessment & Plan (04/05/2021 9:19 PM DECONTAMINATION WORKER): CT chest (04/05) at OSH re-read by our radiologists showed multifocal pneumonia, likely due to aspiration. - As per above, RVP, sputum cx, started zosyn and will need CHARGE OPERATOR eval once he is more stable. Non-small cell lung cancer 04/05/2021 0 05/21/2021 Assessment & Plan (04/11/2021 12:15 PM DECONTAMINATION WORKER): Dx in 08/2007 w/ stage I disease [...] onc Assessment & Plan (04/05/2021 9:30 PM DECONTAMINATION WORKER): Dx in 08/2007 w/ stage I disease [...] 05/24/2021 Standard chest x-ray abnormal 12/14/2012 11/08/2021 Immunizations Immunization Administration Dates Next Due Influenza, Quadrivalent, Hig h Dose, Preservative Free, Intrr 10/07/2019 Influenza, Trivalent, High D ose, Split, Preservative Free, Intramuscular 10/03/2018,10/25/2017 Influenza, Unspecified 10/22/2020 [employer] ([employer]) SARS-CoV-2 Vaccination 04/25/2020 Pneumococcal Polysaccharide PPV23 10/25/2017 Tdap 10/07/2019 Social History Tobacco Use Types Packs/Day Years [...] often do you attend chur ch or anabaptism services? More than 4 times per year 04/07/2021 Do you belong to any clubs o r organizations such as jew groups, unions, fraternal or athletic groups, or [...] money to buy more. Never true 04/08/19 Within the past 12 months, t he [...] place to sleep or slept in a residential (including now)? No 04/07/2021 Sex and Gender Information Value Date Recorded Sex Assigned at Not on file Legal Sex Male 1:36 AM DECONTAMINATION WORKER Gender Identity Male 03/05/2020 2:02 PM DECONTAMINATION WORKER Sexual Orientation Straight 07/09/2018 9: 09 PM CDT Last Filed Vital Signs Vital Sign Reading [...] 07/18/2024 9:26 AM CDT Plan of Treatment Not on file Medical Devices Implanted Type Area Senior Backup Administrator Device Identifier Shelf Expiration Date Model / Serial / Lot 8fr Dignity Mid-Sized Power Port Implanted:Qty : 1 on 03/02/2018 at [facility] Catheter Right: Chest Medcomp [id number] 01/05/2022 / 0 [id number] / [id number] Procedures Procedure Name Priority Date/Time Associated Diagnosis [...] it. Electronically signed by: Clark Duron M.D. Govind Navarro MD IM CT PROCEDURES Final R esult * CT [...] radiation changes. Right chest port. Procedure Note Harini Coreas MD - 05/16/2024 EXAMINATION: CT of the [...] it. Electronically signed by: Harini Trotter M.D. us Govind Navarro MD IM CT PROCEDURES Final R esult * (ABNORMAL) [...] of Race in Diagnosing Kidney Disease, JASN 202). The CKD-EPI equation should not be used for patients with unstable renal function and has not been validated in children and those over 70. Current interpretive data was last reviewed 2020. Blood 05/16/2024 7:42 AM CDT 05/16/2024 7:42 AM CDT Govind Navarro MD LAB BLOOD ORDERABLES Kaylin erickson Result [facility] [place] [address] * (ABNORMAL) Differential, auto (05/16/2024 7:42 AM CDT) Pathologist [facility] Neutrophil abs 6.66(H) 1.50 - 6.50 K/cumm Comment:Testing performed by : [facility], [address] [place] [id number] Imm gran abs 0.03 0.00 - 0.10 K/cumm [facility] Lymphocyte abs 1.01 0.80 - 3.30 K/cumm [facility] Monocyte abs 1.01(H) 0.20 - 0.80 K/cumm [facility] Eosinophil abs 0.03 0.00 - 0.50 K/cumm [facility] Basophil abs 0.02 0.00 - 0.10 K/cumm [facility] Neutrophil pct 76.2 % [facility] Comment: Interpretive Data Percent cell count reference ranges are not reported, since discordance with absolute values may lead to misinterpretation of CBC data. Current Interpretive Data was last revised on 2017. Imm gran pct 0.3 % [facility] Comment: Interpretive Data Percent cell count reference ranges are not reported, since discordance with absolute values may lead to misinterpretation of CBC data. Current Interpretive Data was last revised on 2017. Lymphocyte pct 11.5 % [facility] Comment: Interpretive Data Percent cell count reference ranges are not reported, since discordance with absolute values may lead to misinterpretation of CBC data. Current Interpretive Data was last revised on 2017. Monocyte pct 11.5 % [facility] Comment: Interpretive Data Percent cell count reference ranges are not reported, since discordance with absolute values may lead to misinterpretation of CBC data. Current Interpretive Data was last revised on 2017. Eosinophil pct 0.3 % [facility] Comment: Interpretive Data Percent cell count reference ranges are not reported, since discordance with absolute values may lead to misinterpretation of CBC data. Current Interpretive Data was last revised on 2017. Basophil pct 0.2 % [facility] Comment: Interpretive Data Percent cell count reference ranges are not reported, since discordance with absolute values may lead to misinterpretation of CBC data. Current Interpretive Data was last revised on 2017. Blood 05/16/2024 7:42 AM CDT 05/16/2024 7:42 AM CDT us Govind Navarro MD LAB BLOOD ORDERABLES Kaylin erickson Result [facility] Department of Laboratories [place], [place] [id number] * (ABNORMAL) CBC with auto differential (05/16/2024 7:42 AM CDT) WBC 8.76 3.80 - 9.90 K/cumm Comment:Testing performed by : [address] [address] Hgb 10.1(L) 13.0 - 17.5 g/dL [facility] Comment:Testing performed by : [address] [address] Hct 35.1(L) 38.9 - 50.3 % [facility] Comment:Testing performed by : [facility], [address] [place] [address] Plt 251 150 - 400 K/cumm [facility] Comment:Testing performed by : [facility], [address] [place] [address] MPV 9.5 9.1 - 12.3 fL [facility] RBC 5.34 4.30 - 5.80 M/cumm [facility] MCV 65.7(L) 81.3 - 96.4 fL [facility] MCH 18.9(L) 27.1 - 33.3 pg [facility] MCHC 28.8(L) 32.3 - 35.7 g/dL [facility] RDW CV 18.9(H) 11.1 - 14.9 % [facility] RDW SD 43.0 35.7 - 48.1 fL [facility] NRBC abs 0.00 0.00 - 0.01 K/cumm [facility] ANC Prelim 6.66(H) 1.50 - 6.50 K/cumm [facility] Comment: Interpretive Data The rapid ANC is a preliminary automated count and may vary from the final ANC (Neut Abs) reported in the WBC differential that follows. Current interpretive data was last revised 2024. Blood 05/16/2024 7:42 AM CDT 05/16/2024 7:42 AM CDT us Govind Navarro MD LAB BLOOD ORDERABLES Kaylin erickson Result [facility] Department [place] [address] * (ABNORMAL) Comprehensive metabolic panel (05/16/2024 7:42 AM CDT) Sodium 137 135 - 145 mmol/L Comment:Testing performed by : [facility], [address] [place] [address] Potassium, pl 4.9 3.3 - 4.9 mmol/L [facility] Chloride 104 97 - 110 mmol/L [facility] CO2 26 22 - 32 mmol/L [facility] Anion gap 7 2 - 15 mmol/L [facility] BUN 16 6 - 25 mg/dL [facility] Creatinine 1.32(H) 0.80 - 1.30 mg/dL [facility] Glucose 88 70 - 199 mg/dL [facility] Comment: Interpretive Data Fasting glucose >/= 126 [...] 2022. Calcium 9.0 8.5 - 10.3 mg/dL [facility] Bilirubin, total 0.3 0.1 - 1.2 mg/dL [facility] Protein, pl 6.7 6.5 - 8.5 g/dL [facility] Albumin 3.7 3.5 - 5.0 g/dL [facility] Alk phos 34(L) 40 - 130 Units/L [facility] ALT 14 7 - 55 Units/L [facility] AST 17 10 - 50 Units/L [facility] Blood 05/16/2024 7:42 AM CDT 05/16/2024 7:42 AM CDT us Govind Navarro MD LAB BLOOD ORDERABLES Kaylin erickson Result [facility] [place] [address] from Last 3 Months Insurance [facility] MEDICARE ADVANTAGE [facility] MEDICARE [facility] MEDICARE Advance Directives For more information, please contact: [phone] Documents on File Type Date Recorded Patient District Service Manager Expl anation ADVANCE DIRECTIVE 01/28/2020 5:40 AM [...] Shahla Alarcon Friend Health Care Agent Thania Bailey First Alternate Health Care Agent Care Teams Rn Medical Inpatient Services Relationship Specialty Start Date End Date Shon Willis MD [address] [facility] [place] [phone] PCP - General Internal Medicine 10/23/18 Govind Navarro MD [address] [place] [address] Medical Oncologist/Glaze Sprayer Medical Oncology 02/09/20 Sher Xiong MD PhD [address] [place] [address] Consulting Physician Radiation Oncology 02/09/20 Russ Rand MD [address] [place] [address] Consulting Physician Otolaryngology 02/09/20 Aamir Cox MD [address] [facility] [address] [place] [address] Radiation Oncology 03/13/20 Abdulkadir Santos MD [address] [place] [address] [address] [place] [address] Medical Oncologist/Glaze Sprayer Medical Oncology 11/17/20 Leon Arroyo MD [address] [facility] [address] [place] [address] Consulting Physician Internal Medicine 03/31/21 Chidi Duke MD [address] [place] [address] Consulting Physician Internal Medicine 04/16/21
--- OUTSIDE RECORDS SUMMARY | 2024-07-22 00:50 | XMS_ITS | Clinical Summary ---
Author Organization [facility] [employer] Address [address] [place] [address] Care Team Providers Care Satellite Specialist Name Role Phone Shon Willis MD Primary Care Provider [phone] Source Comments [facility] [employer],non-owned Affiliates and Associated Physician Practices is amultiple site organization consisting of ambulatory clinics and hospital sitesin [place], [place], [place] and [place]. This disclosure is being madepursuant to the Care Everywhere program and may not contain all information available regarding this patient. Last updated 17.[facility] [employer] Allergies No known active allergies Medications * Be aware that medications may not be up to date on this document. Alwaysverify current medications with the patient. amLODIPine (NORVASC) 5 MG tablet Take 5 mg by mouth once daily 0 Active fluticasone propionate (FLONASE) 50 MCG/ACT nasal spray Temperance 2 sprays into each nostril once daily 0 Active dexamethasone (DECADRON) 4 MG tablet Take 4 mg by mouth 2 times daily, before breakfast and supper 0 Active TRELEGY ELLIPTA 100-62.5-25 MCG/INH Inhale 2 puffs by mouth every 6 hours as needed 0 Active furosemide (LASIX) 40 MG tablet Take 40 mg by mouth once daily 0 Active lidocaine-prilo bere (EMLA) 2.5-2.5 % cream Apply 1 g to affected area 1 Hour prior to procedure 0 Active potassium chloride ER (KLOR-CON) 10 MEQ tablet Take 10 mEq by mouth once daily 0 Active pravastatin (PRAVACHOL) 40 MG tablet Take 40 mg by mouth once daily 0 Active tamsulosin (FLOMAX) 0.4 MG capsule Take 0.4 mg by mouth once daily 0 Active traZODone (DESYREL) 50 MG tablet Take 50 mg by mouth nightly as needed 9 Active fish oil/omega-3 fatty acids (PROMEGA;CARDI- OMEGA 3) 1000 MG capsule Take 1,000 mg by mouth once daily Active cyanocobalamin (VITAMIN B-12) 1000 MCG tablet Take 1,000 mcg by mouth once daily Active folic acid (FOLVITE) 1 MG tablet Take 1 mg by mouth once daily Active glucosamine 500 MG capsule Take 1 capsule by mouth 2 times daily Active nystatin (MYCOSTATIN) 195461 UNIT/GM ointment Apply a thin amount three times a day on inside of denture and place denture in mouth. 15 g 1 0 Active alpha lipoic acid 200 MG capsule Take 3 capsules by mouth once daily 90 capsule 11 0 Active Active Problems Problem Noted Date Diagnosed Date Lung cancer 12/04/2019 Hypertension 12/04/2019 Insomnia 12/04/2019 Hypercholesteremia 12/04/2019 Benign prostate hyperplasia 12/04/2019 Immunizations Immunization Administration Dates Next Due INFLUENZA VACCINE, HIGH-DOSE , QUADR. (FLUZONE HIGH-DOSE QUADRIVALENT; 65Y+), 0.7 ML (HD-IIV4) 10/07/2019 TDAP (7yrs+) 10/07/2019 Family History Medical History Relation Name Comments Dementia Brother Arthritis - Rheumatoid Maternal Grandmother Arthritis - Rheumatoid Mother Cancer - Other Mother Depression Mother Relation Name Status Comments Brother Maternal Grandmother Mother Social History Tobacco Use Types Packs/Day Years Used Date Smoking Tobacco: Former Smokeless Tobacco: Never Alcohol Use Standard Drinks/Week Comments Never 0 (1 standard drink = 0.6 oz pur e alcohol) AUDIT-C Answer Date Recorded Q1: How often do you have a drink containing alc ohol? Never 12/04/2019 Average Number of Drinks Not on file 020 Frequency of Binge Drinking Not on file 11/07 Sex and Gender Information Value Date Recorded Sex Assigned at Not on file Legal Sex Male 6:37 AM CLINICAL ACCOUNT LIAISON Gender Identity Not on file Sexual Orientation Not on file Last Filed Vital Signs Vital Sign Reading Time Taken Comments Blood Pressure 142/73 01/08/2020 9:46 AM CLINICAL ACCOUNT LIAISON Pulse 75 01/08/2020 9:46 AM CLINICAL ACCOUNT LIAISON Temperature 36.1 C (97 F) 12/04/2019 9:39 AM CDT Respiratory Rate - - Oxygen Saturation - - Inhaled Oxygen Concentration - - Weight 74.6 kg (164 lb 6.4 oz) 01/08/2020 9:46 A M CLINICAL ACCOUNT LIAISON Height 177.8 cm (5' 10) 01/08/2020 9:46 AM CLINICAL ACCOUNT LIAISON Body Mass Index 23.59 01/08/2020 9:46 AM CLINICAL ACCOUNT LIAISON Plan of Treatment Health Maintenance Due Date Last Done Comments PNEUMOCOCCAL VACCINE 50+ (1 of 1 - PCV) 1988 ZOSTER VACCINE (1 of 2) 1988 Respiratory Syncytial Virus (RSV) Vaccine Pt: or over 60 yrs (1 - 1-dose 75+ series) 2013 COVID-19 VACCINE ( - 2023-2 5 season) 2023 DEPRESSION SCREENING 02/07/2024 INFLUENZA VACCINE (Season Ended) 2024 10/07/19 20 DTAP/TDAP/TD VACCINES (2 - T d or Tdap) 10/06/2029 10/07/2019 HEPATITIS B VACCINE Aged Out No longe r eligible based on patient's age to complete this topic HIB VACCINE Aged Out No longer eligi ble based on patient's age to complete this topic HPV VACCINE Aged Out No longer eligi ble based on patient's age to complete this topic MENINGOCOCCAL (Group B) VACC INE SHARED DECISION-MAKING Aged Out No longer eligibl e based on patient's age to complete this topic MENINGOCOCCAL GROUPS A/C/Y/W VACCINE Aged Out No longer eligible b ased on patient's age to complete this topic Insurance [facility] MANAGED MEDICARE ADV Care Teams Satellite Specialist Relationship Specialty Start Date End Date Shon Willis MD [address] [place] [address] PCP - General 11/18/19
--- OUTSIDE RECORDS SUMMARY | 2024-07-22 00:50 | XMS_ITS | Encounter Summary ---
Author Organization [facility] Address [address] [place] [address] Phone Care Team Providers Care Pmp Project Manager Name Role Phone Shon Willis MD Primary Care Provider [phone] Govind Navarro MD Unavailable [phone] Sher Xiong MD PhD Unavailable [phone]- [phone] Russ Rand MD Unavailable [phone] Aamir Cox MD Unavailable [phone] Abdulkadir Santos MD Unavailable [phone] Leon Arroyo MD Unavailable Chidi Duke MD Unavailable Encounter Details Date Type Department Care Team (Late st Contact Info) Description 06/20/2024 Telephone [facility] Cardiology [facility] Advanced Medicine 8th [place] [address] [place] [address] Una Yañez Social History Tobacco Use Types Packs/Day Years [...] often do you attend chur ch or muslim services? More than 4 times per year 04/07/2021 Do you belong to any clubs o r organizations such as orthodoxy groups, unions, fraternal or athletic groups, or [...] place to sleep or slept in a assisted (including now)? 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 This is done * Telephone Encounter - Una Yañez - 06/26/2024 12:00 PM CDT DHAVAL HERRING WITH [facility] STATES HASN'T RECEIVED CARD CLEARANCE FOR PT. STATES FAX MACHINE WAS NOT WORKING YESTERDAY. PLEASE REFAX TO: [phone] * Telephone Encounter - Angela Harmon - 06/24/2024 3:00 PM CDT Dhaval Please re-fax pages 1 and 2 to [phone]. * Telephone Encounter - Gloria Choe - 06/20/2024 11:42 AM CDT Dhaval They are needing the clearance approval sent over. They said that they did not receive it. Please send again. * Telephone Encounter - Una Yañez - 06/20/2024 11:08 AM CDT DHAVAL LEWIS WITH DR PETE'S OFFICE([facility]) CALLING IN REGARDS TO PT'S CARD CLEARANCE. STATES DID NOT RECEIVE FIRST PAGE OF CLEARANCE WITH PT'S INFORMATION. STATES ONLY RECEIVED APPROVAL PAGE. PLEASE REFAX FAX [phone] documented in this encounter Plan of Treatment Not on file documented as of this encounter Visit Diagnoses Not on filedocumented in this encounter Care Teams Pmp Project Manager Relationship Specialty Start Date End Date Shon Willis MD [address] [facility] [place] [id number] PCP - General Internal Medicine 10/23/18 Govind Navarro MD [address] [place] [address] Medical Oncologist/Steward/Stewardess Bath Medical Oncology 02/09/20 Sher Xiong MD PhD [address] [place] [address] Consulting Physician Radiation Oncology 02/09/20 Russ Rand MD [address] [place] [address] Consulting Physician Otolaryngology 02/09/20 Aamir Cox MD [address] [place] [address] Radiation Oncology 03/13/20 Abdulkadir Santos MD [address] [place] [address] Medical Oncologist/Steward/Stewardess Bath Medical Oncology 11/17/20 Leon Arroyo MD [address] [facility] [address] [place] [address] Consulting Physician Internal Medicine 03/31/21 Chidi Duke MD 1 [place] [address] Consulting Physician Internal Medicine 04/16/21 documented as of this encounter
--- OUTSIDE RECORDS SUMMARY | 2024-07-22 00:50 | XMS_ITS | Continuity of Care Document ---
Author Organization [facility] Address [address] [place] [address] [address] [place] [address] Phone Care Team Providers Care Alteration Tailor Apprentice Name Role Phone Boby Lockett Unavailable Unavailable Procedures Procedure Date Office/outpatient Visit, Est Eye Exam, New Patient No Script Refraction Advance Directives Directive Yes / No Effective Date File Name No Information Encounters Encounter Description Practice Location Reason(s) For Visit Diagnoses Date Provider Providers Copied on Encounter Office/outpat ient Visit, Est [facility], [address], [place], [place], [id number], [place] tel:[phone] [facility] No Information [address]is. [facility] , [address], [place], [place], [facility], [place]. tel:[phone] [facility], [address] [place] [address] [address], [place], [place], [id number], [place] tel:[phone] [facility] No Information [address] Sol[address]. [address] [facility] [address], [place], [place], [facility], [place]. tel:[phone] Family History Family Member Type Diagnosis Age At Onset No Information Payers Payer name Insurance type Covered republican ID Authoriza tion(s) Medicare [facility] [id number] Social History Type Description Quantity Date Captured Comments Sex Male Smoking Status No Information Chief Complaint And Reason For Visit No Information Reason For Referral Reason For Referral No Information History Of Present Illness Encounter Date Complaint History Of Prese nt Illness No Information Functional Status Date Functional Assessmen t No Information Instructions Date Instruction Additional Infor mation No Information Assessments Type Assessment Date No Information Patient Care Teams Name Effective Dates (start - stop) Status Members No Information
[2024-07-22] MEDS: LACTATED RINGERS 1,000 ML 150 ML IV CONT (12:51)
--- NOTE | 2024-07-22 12:53 | WPDANESEPPF ---
Anes - Initial Pre Proc Eval Procedure: Operation Date: 07/22/24 15:00 Proposed Procedures p Esophagogastroduodenoscopy & Colonoscopy - Evaristo Jones MD Date/Time: 07/22/24 12:53 Surgeon: Evaristo Jones MD Pre Op Diagnosis: Other fecal abnormalities Patient Data Age: 84 Gender: M Height: 1.77 m Weight: 68.4 kg Allergies Allergy/AdvReac Type Severity Reaction Status Date / Time No Known Allergies Allergy Verified 07/18/24 13:49 Home Medications ?Medication ?Instructions ?Recorded ?Confirmed ?Type lidocaine-prilocaine 2.5 %-2.5 % 1 applic topical ONCE PRN for 01/09/19 07/22/24 History topical cream ramona cath during chemo tamsulosin 0.4 mg capsule 0.4 mg PO DAILY 01/23/19 07/22/24 History finasteride 5 mg tablet 5 mg PO DAILY 05/27/20 07/22/24 History gabapentin 100 mg capsule 100 mg PO Q12H 07/01/20 07/22/24 History dexamethasone 4 mg tablet 8 mg PO DAILY PRN chemo 10/14/20 07/18/24 History Eliquis 5 mg PO BID 04/04/21 07/22/24 History cholecalciferol (vitamin D3) 50 50 mcg PO DAILY 04/05/22 07/18/24 History mcg (2,000 unit) capsule dapagliflozin propanediol 10 mg 10 mg PO DAILY 07/24/23 07/22/24 History tablet (Farxiga) spironolactone 25 mg tablet 25 mg PO .QOD 09/26/23 07/22/24 History Nebulizer Machine #1 device 12/20/23 07/18/24 Rx furosemide 20 mg tablet 10 mg (1/2 x 20 mg) PO QAM #90 tabs 01/08/24 07/22/24 Rx albuterol sulfate 90 mcg/actuation See Rx Instructions .Route 01/11/24 07/22/24 Rx aerosol inhaler .COMPLEX #51 grams metoprolol succinate 25 mg 12.5 mg PO DAILY 02/06/24 07/22/24 History tablet,extended release 24 hr pravastatin 40 mg tablet See Rx Instructions .Route 03/08/24 07/22/24 Rx .COMPLEX #90 tabs albuterol sulfate 2.5 mg/3 mL 2.5 mg (3 mL) inhalation Q4-6H PRN 04/22/24 07/22/24 Rx (0.083 %) solution for nebulization shortness of breath or wheezing #90 mL fluticasone fur. 100 mcg-umeclid See Rx Instructions .Route 07/15/24 07/22/24 Rx 62.5 mcg-vilant 25 mcg .COMPLEX #180 grams inhalat.powder (Trelegy Ellipta) cyanocobalamin (vitamin B-12) 1,000 mcg PO DAILY 07/16/24 07/22/24 History 1,000 mcg tablet (Vitamin B-12) folic acid 400 mcg tablet 400 mcg PO DAILY 07/16/24 07/22/24 History levothyroxine 88 mcg tablet 44 mcg PO DAILY 07/16/24 07/22/24 History (Synthroid) acetaminophen 325 mg tablet 325 mg PO Q6H PRN pain 07/18/24 07/22/24 History (Tactinal) dutasteride 0.5 mg capsule 0.5 mg PO .daily 07/18/24 07/22/24 History Patient hx anesthesia problems: none Family hx anesthesia problems: none Results Review: All pre-operative results and documents have been reviewed as part of the pre-operative evaluation. [facility] Past Medical History Medical History (Updated 06/26/24 @ 11:26 by Arminda Jones [facility]) Low hemoglobin Chronic obstructive pulmonary disease, unspecified Arthritis Right groin pain Head and neck cancer Heart failure with preserved ejection fraction Encounter for Medicare annual wellness exam BEASLEY (dyspnea on exertion) Lateral epicondylitis of right elbow BMI 21.0-21.9, adult Right leg pain Hypothyroidism (acquired) Dyspnea Injury of lip Vitamin D deficiency Borderline abnormal TFTs Palpitations Peripheral neuropathy Depression PAC (premature atrial contraction) SVT (supraventricular tachycardia) Ectopic beats Dry mouth BMI 23.0-23.9, adult Follow up BMI 22.0-22.9, adult Constipation Urinary retention BMI 24.0-24.9, adult Squamous cell cancer of tongue Metastatic lung cancer (metastasis from lung to other site) Anxiety BMI 26.0-26.9,adult Dysphagia Cellulitis Thrush Odynophagia Chronic sore throat Encounter for routine adult health examination with abnormal findings BMI 27.0-27.9,adult Essential (primary) hypertension History of tobacco use Hx of cancer of lung Malignant neoplasm of hilus of lung Pulmonary emphysema Insomnia Pedal edema Hyperlipidemia Benign essential hypertension Encounter for routine adult health examination without abnormal findings On usp drug therapy BPH (benign prostatic hyperplasia) Surgical History Surgical History History of lobectomy of lung 2008 removal of upper lobe left lung Family History Family History Sibling Family history of allergic disorder Father Family history of emphysema Family history of chronic obstructive pulmonary disease Mother Family history of emphysema, Onset Age: 89 Family history of malignant neoplasm of breast in first degree relative Family history of malignant neoplasm of breast Social History Social History Smoking packs per day: 1.5 Smoking cigarettes per day: 30.0 Years smoked: 40 Smoking pack-years: 60.00 Smoking status: Former smoker Tobacco type: cigarettes Second hand tobacco smoke exposure: No Smoking end date: 07/08/07 Alcohol intake: former Alcohol use details: None since 1995 Substance use: never Substance use type: does not use Do You Feel Safe in your Home?: Yes Lack of Transportation: No Lack of Food: Never True Current Housing: I Have Housing Concerned About Future Housing: No Difficulty Paying Gas/Electric Bills: No Difficulty Paying for Meds: No Currently Unemployed: No Education: Master's Degree or Higher Difficulty w/ Childcare or Family Care: No Living arrangements: alone Gender identity (if verbalized by the patient): Male Spiritual care concerns: No Agree to blood products: Yes Anes - Eval Final PreProcedure Day of Procedure 07/22/24 12:53 Patient weight: normal Heart: regular rate and rhythm Lungs: clear to auscultation and normal air movement Airway: Mallampati scale class III Neurological: alert and oriented Last oral intake: >/= 8 hours ASA classification: IV Emergent: no Anesthetic plan: proceed Anesthesia type and monitoring: general GIVS and standard monitoring Results Review: All pre-operative results and documents have been reviewed as part of the pre-operative evaluation. Informed Consent: The patient's anesthetic plan and its attendant risks and benefits were discussed with the patient/family/POA. Questions were solicited and answers provided to the satisfaction of the patient/family/POA.
--- NOTE | 2024-07-22 13:02 | P.HP_ITS ---
History of Present Illness History of Present Illness Consent: Risks, benefits, and alternatives have been discussed and questions answered. Patient agrees to proceed with procedure. Chief complaint: Other fecal abnormalities Narrative: Michael Stone is a 84 year old male with anemia, hgb 10-11 and fobt + (no overt gib though), PCP ordered egd and colonoscopy. Also h/o lung cancer, using eliquis. Review of Systems Review of Systems: All systems reviewed & are unremarkable except as noted in HPI and below PMFSH Past Medical History Medical History (Updated 07/22/24 @ 13:05 by Evaristo Jones MD) Occult blood in stools Low hemoglobin Chronic obstructive pulmonary disease, unspecified Arthritis Right groin pain Head and neck cancer Heart failure with preserved ejection fraction Encounter for Medicare annual wellness exam BEASLEY (dyspnea on exertion) Lateral epicondylitis of right elbow BMI 21.0-21.9, adult Right leg pain Hypothyroidism (acquired) Dyspnea Injury of lip Vitamin D deficiency Borderline abnormal TFTs Palpitations Peripheral neuropathy Depression PAC (premature atrial contraction) SVT (supraventricular tachycardia) Ectopic beats Dry mouth BMI 23.0-23.9, adult Follow up BMI 22.0-22.9, adult Constipation Urinary retention BMI 24.0-24.9, adult Squamous cell cancer of tongue Metastatic lung cancer (metastasis from lung to other site) Anxiety BMI 26.0-26.9,adult Dysphagia Cellulitis Thrush Odynophagia Chronic sore throat Encounter for routine adult health examination with abnormal findings BMI 27.0-27.9,adult Essential (primary) hypertension History of tobacco use Hx of cancer of lung Malignant neoplasm of hilus of lung Pulmonary emphysema Insomnia Pedal edema Hyperlipidemia Benign essential hypertension Encounter for routine adult health examination without abnormal findings On nursing home drug therapy BPH (benign prostatic hyperplasia) Surgical History Surgical History History of lobectomy of lung 2008 removal of upper lobe left lung Family History Family History Sibling Family history of allergic disorder Father Family history of emphysema Family history of chronic obstructive pulmonary disease Mother Family history of emphysema, Onset Age: 89 Family history of malignant neoplasm of breast in first degree relative Family history of malignant neoplasm of breast Social History Social History Smoking packs per day: 1.5 Smoking cigarettes per day: 30.0 Years smoked: 40 Smoking pack-years: 60.00 Smoking status: Former smoker Tobacco type: cigarettes Second hand tobacco smoke exposure: No Smoking end date: 07/08/07 Alcohol intake: former Alcohol use details: None since 1995 Substance use: never Substance use type: does not use Do You Feel Safe in your Home?: Yes Lack of Transportation: No Lack of Food: Never True Current Housing: I Have Housing Concerned About Future Housing: No Difficulty Paying Gas/Electric Bills: No Difficulty Paying for Meds: No Currently Unemployed: No Education: Master's Degree or Higher Difficulty w/ Childcare or Family Care: No Living arrangements: alone Gender identity (if verbalized by the patient): Male Spiritual care concerns: No Agree to blood products: Yes Meds Home Medications and Allergies Home Medications ?Medication ?Instructions ?Recorded ?Confirmed ?Type lidocaine-prilocaine 2.5 %-2.5 % 1 applic topical ONCE PRN for 01/09/19 07/22/24 History topical cream ramona cath during chemo tamsulosin 0.4 mg capsule 0.4 mg PO DAILY 01/23/19 07/22/24 History finasteride 5 mg tablet 5 mg PO DAILY 05/27/20 07/22/24 History gabapentin 100 mg capsule 100 mg PO Q12H 07/01/20 07/22/24 History dexamethasone 4 mg tablet 8 mg PO DAILY PRN chemo 10/14/20 07/18/24 History Eliquis 5 mg PO BID 04/04/21 07/22/24 History cholecalciferol (vitamin D3) 50 50 mcg PO DAILY 04/05/22 07/18/24 History mcg (2,000 unit) capsule dapagliflozin propanediol 10 mg 10 mg PO DAILY 07/24/23 07/22/24 History tablet (Farxiga) spironolactone 25 mg tablet 25 mg PO .QOD 09/26/23 07/22/24 History Nebulizer Machine #1 device 12/20/23 07/18/24 Rx furosemide 20 mg tablet 10 mg (1/2 x 20 mg) PO QAM #90 tabs 01/08/24 07/22/24 Rx albuterol sulfate 90 mcg/actuation See Rx Instructions .Route 01/11/24 07/22/24 Rx aerosol inhaler .COMPLEX #51 grams metoprolol succinate 25 mg 12.5 mg PO DAILY 02/06/24 07/22/24 History tablet,extended release 24 hr pravastatin 40 mg tablet See Rx Instructions .Route 03/08/24 07/22/24 Rx .COMPLEX #90 tabs albuterol sulfate 2.5 mg/3 mL 2.5 mg (3 mL) inhalation Q4-6H PRN 04/22/24 07/22/24 Rx (0.083 %) solution for nebulization shortness of breath or wheezing #90 mL fluticasone fur. 100 mcg-umeclid See Rx Instructions .Route 07/15/24 07/22/24 Rx 62.5 mcg-vilant 25 mcg .COMPLEX #180 grams inhalat.powder (Trelegy Ellipta) cyanocobalamin (vitamin B-12) 1,000 mcg PO DAILY 07/16/24 07/22/24 History 1,000 mcg tablet (Vitamin B-12) folic acid 400 mcg tablet 400 mcg PO DAILY 07/16/24 07/22/24 History levothyroxine 88 mcg tablet 44 mcg PO DAILY 07/16/24 07/22/24 History (Synthroid) acetaminophen 325 mg tablet 325 mg PO Q6H PRN pain 07/18/24 07/22/24 History (Tactinal) dutasteride 0.5 mg capsule 0.5 mg PO .daily 07/18/24 07/22/24 History Allergies Allergy/AdvReac Type Severity Reaction Status Date / Time No Known Allergies Allergy Verified 07/18/24 13:49 Exam Const: General: comfortable and no acute distress HENMT: Face/Nose/Sinus: Normal nares present Eyes: General: appearance normal, both eyes and all related structures Resp: Auscultation: clear to auscultation bilaterally Cardio: Rate: regular rate Rhythm: regular rhythm GI: Inspection: non-distended GI Palp: Yes Soft to palpation Skin: General skin exam: normal color Neuro: Speech: normal speech Extrem: General: normal to inspection Psych: Mental Status: mental status grossly normal Assessment and Plan Assessment and plan (1) Chronic anticoagulation: Code(s): Z79.01 - senior care (current) use of anticoagulants Status: Acute (2) Occult blood in stools: Code(s): R19.5 - Other fecal abnormalities Status: Acute Assessment and Plan: egd and colonoscopy (3) Low hemoglobin: Code(s): D64.9 - Anemia, unspecified Status: Acute
--- NOTE | 2024-07-22 13:14 | SUR.OPER ---
EGD: ended 1309, COLON: started 1313
[2024-07-22 13:26] VITALS: BP 87/46; PULSE 75; RESP 16; O2SAT 100
--- NOTE | 2024-07-22 13:26 | S_PTH ---
PATIENT: Michael Stone LOC: [facility]#:[id number] AGE/SX: 84/M ROOM: RE07/22/[address]: Evaristo Jones MD : 1940 BED: DIS: 07/22/2024 SPEC #: [id number] RECD: 07/22/24 14:19 STATUS: MANJINDER REKings #: [id number] RAMON: 07/22/24 13:[address]: Evaristo Jones DEPT: [facility] RECD BY: Jessi Gr ENTERED: 07/22/24 14:20 SP TYPE: Surgical OTHR DR: Shon Willis MD Tissues: A - Colon Polypectomy B - Colon Polypectomy C - Colon Polypectomy Procedures: Hematoxylin and Eosin Stain Gross and Microscopic Level 4
[2024-07-22 13:36] VITALS: BP 91/48; PULSE 73; RESP 16; O2SAT 98
[2024-07-22 13:46] VITALS: BP 97/59; PULSE 75; RESP 16; O2SAT 99
[2024-07-22] MEDS: HEPARIN SODIUM LOCK FLUSH 500 UNITS/5 ML SYRINGE IV PUSH ×2 (13:50→14:05)
--- NOTE | 2024-07-22 14:05 | SUR.PHASEII ---
pts port flushed with saline, heparin infused and port removed without difficulty. site clear, drsg applied.
== END 2024-07-22 14:06 | disposition home or self-care (01) ==
PROVIDERS: PCP Internal Medicine; Referring Provider Internal Medicine; Visit Provider Internal Medicine Gastroenterology
PROC: 0DJ08ZZ Inspection of Upper Intestinal Tract, Via Natural or Artificial Opening Endoscopic (ICD-10-PCS; CPT 45378; principal; 2024-07-22 15:00)
DX: D12.3 Benign neoplasm of transverse colon (principal); D12.2 Benign neoplasm of ascending colon; K64.8 Other hemorrhoids; K57.30 Diverticulosis of large intestine without perforation or abscess without bleeding; D64.9 Anemia, unspecified; E03.9 Hypothyroidism, unspecified; E55.9 Vitamin D deficiency, unspecified; F32.A Depression, unspecified; F41.9 Anxiety disorder, unspecified; J43.8 Other emphysema; G47.00 Insomnia, unspecified; E78.5 Hyperlipidemia, unspecified; N40.0 Benign prostatic hyperplasia without lower urinary tract symptoms; I11.0 Hypertensive heart disease with heart failure; I50.30 Unspecified diastolic (congestive) heart failure; R00.2 Palpitations; G62.9 Polyneuropathy, unspecified; I49.1 Atrial premature depolarization; I47.10 Supraventricular tachycardia, unspecified; I49.49 Other premature depolarization; R33.9 Retention of urine, unspecified; J31.2 Chronic pharyngitis; Z79.01 Long term (current) use of anticoagulants; Z79.84 Long term (current) use of oral hypoglycemic drugs; Z79.51 Long term (current) use of inhaled steroids; Z79.899 Other long term (current) drug therapy; Z98.890 Other specified postprocedural states; Z87.891 Personal history of nicotine dependence; Z85.810 Personal history of malignant neoplasm of tongue; Z85.89 Personal history of malignant neoplasm of other organs and systems; Z85.118 Personal history of other malignant neoplasm of bronchus and lung; Z80.3 Family history of malignant neoplasm of breast
CPT/HCPCS: 43235; 45385; 36415; 80048; 85014; 85018; 85610; 85730; 86850; 86900; 86901; 88305; 93005; J2704; J7120

== ENCOUNTER 2024-07-22 11:25 | Outpatient (CLI) | payer MEDICARE, SELFPAY ==
--- NOTE | 2024-07-22 11:34 | ECG_ITS ---
Test Date: 2024-07-22 11:49:09 Measurements Intervals [place] Rate: 86 P: 71 ME: 146 QRS: 78 QRSD: 99 T: 36 QT: 374 QTc: 449 Interpretive Statements SINUS RHYTHM BORDERLINE R WAVE PROGRESSION, ANTERIOR LEADS BASELINE ARTIFACT- I, II, III, AVR, AVL, AVF, V4 BORDERLINE ECG No previous ECG available for comparison Electronically Signed On 07-22-2024 13:00:29 CDT by Miles Galvan D.O.
--- OUTSIDE RECORDS SUMMARY | 2024-07-22 12:43 | XMS_ITS | Clinical Summary ---
Author Organization [facility] Address [address] [place] [address] Care Team Providers Care Rubber Tire And Tubes Supervisor Name Role Phone Unavailable Primary Care Provider Unavailabl e Immunizations Immunization Administration Dates Next Due Covid-19 Vaccine, Vector-nr, Rs-ad26, Pf, 0.5 Ml ([employer] [place]/J&Risk Ident) 12/02/2020 Social History Tobacco Use Types Packs/Day [...]
--- OUTSIDE RECORDS SUMMARY | 2024-07-22 12:43 | XMS_ITS | Encounter Summary ---
Author Organization [facility] Address [address] [place] [address] Phone Care Team Providers Care Docket Clerk Name Role Phone Shon Willis MD Primary Care Provider [phone] Govind Navarro MD Unavailable [phone] Sher Xiong MD PhD Unavailable [phone] Russ Rand MD Unavailable [phone] Deric Ingram MD Unavailable [phone] Aamir Cox MD Unavailable [phone] Dariela Carlin NP Unavailable [phone] Abdulkadir Santos MD Unavailable Leon Arroyo MD Unavailable Chidi Duke MD Unavailable [phone] Arely Hartman MD Unavailable + Encounter Details [...] on file 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 Gender Identity Male 03/05/2020 2:02 PM BED WORKER Sexual Orientation Straight 07/09/2018 9: 09 [...] COVID: Suspected 04/05/2021 04/05/2021 04/05/2021 7:00 PM BED WORKER documented as of this encounter Care Teams Docket Clerk Relationship Specialty Start Date End Date Shon Willis MD [address] [facility] [address] [facility] [address] [place] [phone] PCP - General Internal Medicine 10/23/18 Govind Navarro MD [address] [place] [address] Medical Oncologist/Hematologis t Medical Oncology 02/09/20 Sher Xiong MD PhD [address] [place] [address] Consulting Physician Radiation Oncology 02/09/20 Russ Rand MD [address] [place] [address] Consulting Physician Otolaryngology 02/09/20 Deric Ingram MD [address] [place] [address] Consulting Physician Hematology and Oncology 03/11/20 03/29/21 Aamir Cox MD [address] [facility] [address] [place] [address] Radiation Oncology 03/13/20 Dariela Carlin, JOSE [address] [place] [address] Nurse Practitioner Medical Oncology 03/28/20 05/18/20 Abdulkadir Santos MD [address] [facility] [address] [place] [address] Medical Oncologist/Hematologis t Medical Oncology 11/17/20 Leon Arroyo MD [address] [place] [address] Consulting Physician Internal Medicine 03/31/21 Chidi Duke MD 1 [place] [address] Consulting Physician Internal Medicine 04/16/21 Arely Hartman MD 1 [place] [address] Consulting Physician Cardiovascular Disease 04/16/21 documented as of this encounter
--- OUTSIDE RECORDS SUMMARY | 2024-07-22 12:43 | XMS_ITS | Encounter Summary ---
Author Organization [facility] Address [address] [place] [address] Phone Care Team Providers Care Cerner Analyst Name Role Phone Shon Willis MD Primary Care Provider [phone] Govind Navarro MD Unavailable [phone] Sher Xiong MD PhD Unavailable [phone] Russ Rand MD Unavailable Deric Ingram MD Unavailable [phone] Aamir Cox MD Unavailable Jonelle Fair NP Unavailable [phone] Andres Arreola MD Unavailable [phone] Dariela Carlin NP Unavailable [phone] Abdulkadir Santos MD Unavailable [phone] Leon Arroyo MD Unavailable [phone] Chidi Duke MD Unavailable Arely Hartman MD [...] on file 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 Gender Identity Male 03/05/2020 2:02 PM HADOOP SOFTWARE ENGINEER Sexual Orientation Straight 07/09/2018 9: 09 PM [...] COVID: Suspected 04/05/2021 04/05/2021 04/05/2021 7:00 PM HADOOP SOFTWARE ENGINEER documented as of this encounter Care Teams Cerner Analyst Relationship Specialty Start Date End Date Shon Willis MD [address] [place] [address] PCP - General Internal Medicine 10/23/18 Govind Navarro MD [address] [place] [address] Medical Oncologist/Hematologis t Medical Oncology 02/09/20 Sher iXong MD PhD [address] [place] [address] Consulting Physician Radiation Oncology 02/09/20 Russ Rand MD [address] [place] [address] Consulting Physician Otolaryngology 02/09/20 Deric Ingram MD [address] [place] [address] Consulting Physician Hematology and Oncology 03/11/20 03/29/21 Aamir Cox MD [address] [facility] [address] [place] [address] Radiation Oncology 03/13/20 Jonelle Fair NP [address] [place] [address] Nurse Practitioner Medical Oncology 03/16/20 03/25/20 Andres Arreola MD [address] [place] [address] Consulting Physician Radiation Oncology 03/16/20 Dariela Carlin NP [address] [place] [address] Nurse Practitioner Medical Oncology 03/28/20 05/18/20 Abdulkadir Santos MD [address] [facility] [address] [place] [address] Medical Oncologist/Hematologis t Medical Oncology 11/17/20 Leon Arroyo MD [address] [place] [address] Consulting Physician Internal Medicine 03/31/21 Chidi Duke MD 1 [place] [address] Consulting Physician Internal Medicine 04/16/21 Arely Hartman MD 1 [place] [address] Consulting Physician Cardiovascular Disease 04/16/21 documented as of this encounter
--- OUTSIDE RECORDS SUMMARY | 2024-07-22 12:43 | XMS_ITS | Encounter Summary ---
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 Gender Identity Male 03/05/2020 2:02 PM ELECTRICAL LINEMAN Sexual Orientation Straight 07/09/2018 9: 09 PM [...] COVID: Suspected 04/05/2021 04/05/2021 04/05/2021 7:00 PM ELECTRICAL LINEMAN documented as of this encounter Care Teams Front Office Supervisor Relationship Specialty Start Date End Date Shon Willis MD [address] [facility] [address] [place] [id number] PCP - General Internal Medicine 10/23/18 Govind Navarro MD [address] [place] [address] Medical Oncologist/Hematologis t Medical Oncology 02/09/20 Sher Xiong MD PhD [address] [place] [address] Consulting Physician Radiation Oncology 02/09/20 Russ Rand MD [address] [place] [address] Consulting Physician Otolaryngology 02/09/20 Deric Ingram MD [address] [place] [address] Consulting Physician Hematology and Oncology 03/11/20 03/29/21 Aamir Cox MD [address] [facility] [address] [place] [address] Radiation Oncology 03/13/20 Abdulkadir Santos MD [address] [facility] [address] [place] [address] Medical Oncologist/Hematologis t Medical Oncology 11/17/20 Leon Arroyo MD [address] [place] [address] Consulting Physician Internal Medicine 03/31/21 Chidi Duke MD 1 [place] [address] Consulting Physician Internal Medicine 04/16/21 Arely Hartman MD 1 [place] [address] Consulting Physician Cardiovascular Disease 04/16/21 documented as of this encounter
--- OUTSIDE RECORDS SUMMARY | 2024-07-22 12:44 | XMS_ITS | Referral Summary ---
Author Organization [facility] Address [address] [place] [address] Care Team Providers Care Assistant Clinical Nurse Manager Name Role Phone Shon Willis MD Primary Care Provider [phone] Govind Navarro MD Unavailable Sher Xiong MD PhD Unavailable [phone] Russ Rand MD Unavailable Aamir Cox MD Unavailable [phone] Abdulkadir Santos MD Unavailable [phone] Leon Arroyo MD Unavailable Chidi Duke MD Unavailable Encounters Date Type Department Care Team Description 07/18/2024 Documentation [facility] Oncology [address] [facility] Floor 8 [place] [id number] Gail Pearson RMA 07/18/2024 Documentation [facility] Cardiology [address] [facility] [address] [facility] [place] [address] Elizabeth Medina RN Cardiac Clearance 07/18/2024 10:00 AM CDT Office Visit [facility] Cardiology [address] [facility] [address] [facility] [place] [address] Milena Francisco NP Chronic diastolic heart failure (HCC); Primary hypertension; Paroxysmal atrial fibrillation (HCC); Acute congestive heart failure, unspecified heart failure type (HCC) 06/20/2024 Telephone [facility] Cardiology [address] [facility] 8th [place] [address] [place] [address] YañezWoody rizvion 06/20/2024 Documentation [facility] Cardiology [address] [facility] [address] [place] [address] Elizabeth Medina, MUSA 06/04/2024 Orders Only [facility] Scanning, Provider 05/29/2024 Telephone [facility] Oncology [address] [place] [phone] Quynh Estrada 05/27/2024 Telephone [facility] Oncology [address] [place] [phone] Aisha Buckley RN 05/24/2024 Telephone [facility] Oncology [address] [place] [phone] Bridgette Smith RN 05/21/2024 11:15 AM CDT Office Visit [facility] Oncology [address] [facility] [address] [place] [address] Abdulkadir Santos MD 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) (Primary Dx) 05/21/2024 9:45 AM CDT Office Visit [facility] Oncology [address] [place] [phone] Govind Navarro MD 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) (Primary Dx) 05/16/2024 7:53 AM CDT - 05/16/2024 11:59 PM CDT Hospital Encounter [facility] Radiology at [facility] [address] [place] [address] 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) Discharge Disposition: Discharge to home or self care 05/16/2024 7:30 AM CDT Clinical Support [address] [address] 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) 05/16/2024 7:53 AM CDT - 05/16/2024 11:59 PM CDT Hospital Encounter [facility] Rad[facility] at [facility] [address] [place] [address] Primary cancer of left upper lobe of [...] 03/10 Assessment & Plan (04/13/2021 3:08 PM HADOOP ANALYST): Patient was found to have new A [...] weights Assessment & Plan (04/10/2021 6:39 AM HADOOP ANALYST): Patient was found to have new A [...] 04/05/2021 Assessment & Plan (04/13/2021 3:06 PM HADOOP ANALYST): CT chest (04/04) re-read by our radiologists showed new RUL PE. - transitioned to eliquis on 04-13 from heparin drip Assessment & Plan (04/10/2021 6:34 AM HADOOP ANALYST): CT chest (04/04) re-read by our radiologists showed new RUL PE.. - currently on heparin drip, will continue until repeat echo before transition to medical consultant anticoagulation Stage 3b chronic kidney disease 04/05/2021 Assessment & Plan (04/11/2021 12:15 PM HADOOP ANALYST): Baseline Cr 1-1.1, seems to have worsening renal failure since 03/31 which has now normalized. - will monitor closely Assessment & Plan (04/10/2021 6:36 AM HADOOP ANALYST): Baseline Cr 1-1.1, seems to have worsening renal failure since 03/31 which has now normalized. - willctm HTN (hypertension) 04/05/2021 Assessment & Plan (04/11/2021 12:14 PM HADOOP ANALYST): Continue home metoprolol - continue lasix Assessment & Plan (04/10/2021 6:36 AM HADOOP ANALYST): Resume home metoprolol and lasix Paroxysmal atrial fibrillation with RVR 04/05/19 Assessment & Plan (04/11/2021 12:15 PM HADOOP ANALYST): Has new onset A fib w/ RVR on 03/30, started on metoprolol (cardizem discontinued) at [facility]. Self converted. Patient eventually developed A fib w/ RVR in the 140's-170's, that persisted at least >60 mins, w/ stable BP and no chest pain or AMS. Required metoprolol IV and ICU monitoring, now better controlled - continue metoprolol 25 BID, anticoagulation as per PE section Assessment & Plan (04/10/2021 6:35 AM HADOOP ANALYST): Has new onset A fib w/ RVR on 03/30, started on metoprolol (cardizem discontinued) at [facility]. Self converted. Patient eventually developed A fib w/ RVR in the 140's-170's, that persisted at least >60 mins, w/ stable BP and no chest pain or AMS. Required metoprolol IV and ICU monitoring, now better controlled - continue metoprolol 25 BID, anticoagulation as per PE section Peripheral neuropathy 04/05/2021 Assessment & Plan (04/11/2021 12:15 PM HADOOP ANALYST): Due to chemotherapy. - home vitamin B12 Assessment & Plan (04/05/2021 9:30 PM HADOOP ANALYST): Due to chemotherapy. - Resume home vitamin B12 COPD (chronic obstructive pulmonary disease) Assessment & Plan (04/11/2021 12:14 PM HADOOP ANALYST): On trilegy Ellipta and PRN albuterol at home. - cont home inhalers. Assessment & Plan (04/05/2021 9:50 PM HADOOP ANALYST): On trilegy Ellipta and PRN albuterol at home. - Resume home inhalers. Coagulopathy 04/05/2021 Assessment & Plan (04/05/2021 9:48 PM HADOOP ANALYST): Due to Eliquis Atrial flutter with rapid ventricular response 0 03/30/2021 Encounter for person encountering health service s 10/28/2020 Squamous cell carcinoma of base of tongue (CMS/H CC) 02/04/2020 Cancer Staging:Clinical stage from 01/28/2020:Stage III(cT2, cN1, cM0, p16-) - Signed by Sher Xiong MD PhD on 02/10/2020 Assessment & Plan (04/11/2021 12:15 PM HADOOP ANALYST): Dx in 01/2020 w/ stage III disease, [...] onc Assessment & Plan (04/05/2021 9:30 PM HADOOP ANALYST): Dx in 01/2020 w/ stage III disease, [...] (01/21/2020): Added automatically from request for surgery [id number] Benign prostate hyperplasia 12/04/2019 Hypercholesteremia 12/04/2019 Insomnia 12/04/2019 Primary cancer of left upper lobe of lung 2017 Resolved Problems Problem Noted Date Diagnosed Date Resolved Date Severe malnutrition 04/06/2021 11/09/19 Assessment & Plan (04/11/2021 12:15 PM HADOOP ANALYST): Per RD note Dyspnea on exertion 04/05/2021 04/11/19 Assessment & Plan (04/05/2021 9:12 PM HADOOP ANALYST): Due to large pericardial effusion w/ cardiac tamponade physiology, multifocal pneumonia, new RUL PE (despite eliquis) in addition to severe emphysema and metastatic NSCLC. P/w dyspnea on exertion that started on Monday and has progressively worsened. Presented to [facility] ED (CBC, CMP, pro-BNP, Troponin, CT [...] on Zosyn for multifocal pneumonia. Will need INSTRUCTOR OF EDUCATION eval due to concern for aspiration. - Cardio-oncology consulted for pericardiocentesis, will be done tomorrow AM as his last dose of Eliquis was on 04/04 in AM. - Hold off on therapeutic AC as INR is 2, and he is planned for pericardiocentesis. Multifocal pneumonia 04/05/2021 022 Assessment & Plan (04/05/2021 9:19 PM HADOOP ANALYST): CT chest (04/05) at [facility]SH re-read by our radiologists showed multifocal pneumonia, likely due to aspiration. - As per above, RVP, sputum cx, started zosyn and will need INSTRUCTOR OF EDUCATION eval once he is more stable. Non-small cell lung cancer 04/05/2021 0 05/21/2021 Assessment & Plan (04/11/2021 12:15 PM HADOOP ANALYST): Dx in 08/2007 w/ stage I disease [...] onc Assessment & Plan (04/05/2021 9:30 PM HADOOP ANALYST): Dx in 08/2007 w/ stage I disease [...] Preservative Free, Intramuscular 10/03/2018,10/25/2017 Influenza, Unspecified 10/22/2020 Peonut (J&J) SARS-CoV-2 Vaccination 04/25/2020 Pneumococcal Polysaccharide PPV23 [...] often do you attend chur ch or orthodox services? More than 4 times per year 04/07/2021 Do you belong to any clubs o r organizations such as congregation groups, unions, fraternal or athletic groups, or [...] place to sleep or slept in a halfway (including now)? No 04/07/2021 Sex and Gender Information Value Date Recorded Sex Assigned at Not on file Legal Sex Male 1:36 AM HADOOP ANALYST Gender Identity Male 03/05/2020 2:02 PM HADOOP ANALYST Sexual Orientation Straight 07/09/2018 9: 09 PM [...] on file Medical Devices Implanted Type Area Drywall Finisher Foreman Device Identifier Shelf Expiration Date Model / Serial / Lot 8fr Dignity Mid-Sized Power Port Implanted:Qty : 1 on 03/02/[address] [facility] Catheter Right: Chest Medcomp [id number] 01/05/2022 / 0 [id number] / [id number] Procedures Procedure Name Priority Date/Time Associated Diagnosis [...] MD LAB BLOOD ORDERABLES Kaylin erickson Result [facility] [address] Department [place] [address] * (ABNORMAL) Differential, auto (05/16/2024 7:42 AM CDT) Pathologist [facility] Neutrophil abs 6.66(H) 1.50 - 6.50 K/cumm Comment:Testing performed by : [facility], [address] [place] [address] Imm gran abs 0.03 0.00 - 0.10 K/cumm [facility] Lymphocyte abs 1.01 0.80 - 3.30 K/cumm [facility] Monocyte abs 1.01(H) 0.20 - 0.80 K/cumm [facility] Eosinophil abs 0.03 0.00 - 0.50 K/cumm [facility] Basophil abs 0.02 0.00 - 0.10 K/cumm [facility] Neutrophil pct 76.2 % [facility] Comment: Interpretive Data Percent cell count reference ranges are not reported, since discordance with absolute values may lead to misinterpretation of CBC data. Current Interpretive Data was last revised on 2017. Imm gran pct 0.3 % [facility] Comment: Interpretive Data Percent cell count reference ranges are not reported, since discordance with absolute values may lead to misinterpretation of CBC data. Current Interpretive Data was last revised on 2017. Lymphocyte pct 11.5 % [facility] Comment: Interpretive Data Percent cell count reference ranges are not reported, since discordance with absolute values may lead to misinterpretation of CBC data. Current Interpretive Data was last revised on 2017. Monocyte pct 11.5 % [facility] Comment: Interpretive Data Percent cell count reference ranges are not reported, since discordance with absolute values may lead to misinterpretation of CBC data. Current Interpretive Data was last revised on 2017. Eosinophil pct 0.3 % [facility] Comment: Interpretive Data Percent cell count reference ranges are not reported, since discordance with absolute values may lead to misinterpretation of CBC data. Current Interpretive Data was last revised on 2017. Basophil pct 0.2 % [facility] Comment: Interpretive Data Percent cell count reference ranges are not reported, since discordance with absolute values may lead to misinterpretation of CBC data. Current Interpretive Data was last revised on 2017. Blood 05/16/2024 7:42 AM CDT 05/16/2024 7:42 AM CDT us Govind Navarro MD LAB BLOOD ORDERABLES Kaylin erickson Result [facility] [address] Department of Laboratories [place], [place] [id number] * (ABNORMAL) CBC with auto differential (05/16/2024 7:42 AM CDT) WBC 8.76 3.80 - 9.90 K/cumm Comment:Testing performed by : [address] [address] Hgb 10.1(L) 13.0 - 17.5 g/dL [facility] Comment:Testing performed by : [address] [address] Hct 35.1(L) 38.9 - 50.3 % [facility] Comment:Testing performed by : [facility], [address] [place] [address] Plt 251 150 - 400 K/cumm [facility] Comment:Testing performed by : [facility], [address] [place] [address] MPV 9.5 9.1 - 12.3 fL [facility] RBC 5.34 4.30 - 5.80 M/cumm [facility] MCV 65.7(L) 81.3 - 96.4 fL [facility] MCH 18.9(L) 27.1 - 33.3 pg [facility] MCHC 28.8(L) 32.3 - 35.7 g/dL [facility] RDW CV 18.9(H) 11.1 - 14.9 % [facility] RDW SD 43.0 35.7 - 48.1 fL [facility] NRBC abs 0.00 0.00 - 0.01 K/cumm [facility] ANC Prelim 6.66(H) 1.50 - 6.50 K/cumm [facility] Comment: Interpretive Data The rapid ANC is a preliminary automated count and may vary from the final ANC (Neut Abs) reported in the WBC differential that follows. Current interpretive data was last revised 2024. Blood 05/16/2024 7:42 AM CDT 05/16/2024 7:42 AM CDT us Govind Navarro MD LAB BLOOD ORDERABLES Kaylin erickson Result [facility] [address] Department [place] [address] * (ABNORMAL) Comprehensive metabolic panel (05/16/2024 7:42 AM CDT) Sodium 137 135 - 145 mmol/L Comment:Testing performed by : [facility], [address] [place] [address] Potassium, pl 4.9 3.3 - 4.9 mmol/L [facility] Chloride 104 97 - 110 mmol/L [facility] CO2 26 22 - 32 mmol/L [facility] Anion gap 7 2 - 15 mmol/L [facility] BUN 16 6 - 25 mg/dL [facility] Creatinine 1.32(H) 0.80 - 1.30 mg/dL [facility] Glucose 88 70 - 199 mg/dL [facility] Comment: Interpretive Data Fasting glucose [...] 2022. Calcium 9.0 8.5 - 10.3 mg/dL [facility] Bilirubin, total 0.3 0.1 - 1.2 mg/dL [facility] Protein, pl 6.7 6.5 - 8.5 g/dL [facility] Albumin 3.7 3.5 - 5.0 g/dL [facility] Alk phos 34(L) 40 - 130 Units/L [facility] ALT 14 7 - 55 Units/L [facility] AST 17 10 - 50 Units/L [facility] Blood 05/16/2024 7:42 AM CDT 05/16/2024 7:42 AM CDT us Govind Navarro MD LAB BLOOD ORDERABLES Kaylin erickson Result [facility] [address] [place] [address] from Last 3 Months Insurance [facility] MEDICARE [facility] Address: [address] [address] [place] [address] [facility] MEDICARE [facility] MEDIC[facility] Advance Directives For more information, please contact: [phone] Documents on File Type Date Recorded Patient Utility Service Worker Expl anation ADVANCE DIRECTIVE 01/28/2020 5:40 AM [...] First Alternate Health Care Agent Care Teams Assistant Clinical Nurse Manager Relationship Specialty Start Date End Date Shon Willis MD [address] [facility]ICINE [place] [id number] PCP - General Internal Medicine 10/23/18 Govind Navarro MD [address] [place] [address] Medical Oncologist/Supervisor Of Communications Medical Oncology 02/09/20 Sher Xiong MD PhD [address] [place] [address] Consulting Physician Radiation Oncology 02/09/20 Russ Rand MD [address] [place] [address] Consulting Physician Otolaryngology 02/09/20 Aamir Cox MD [address] [facility] [address] [place] [address] Radiation Oncology 03/13/20 Abdulkadir Santos MD [address] [place] [address] [address] [place] [address] Medical Oncologist/Supervisor Of Communications Medical Oncology 11/17/20 Leon Arroyo MD [address] [facility] [address] [place] [address] Consulting Physician Internal Medicine 03/31/21 Chidi Duke MD [address] [place] [address] Consulting Physician Internal Medicine 04/16/21
--- OUTSIDE RECORDS SUMMARY | 2024-07-22 12:44 | XMS_ITS | Encounter Summary ---
Author Organization [facility] Address [address] [place] [address] Phone Care Team Providers Care Ad Terminal Makeup Operator Name Role Phone Shon Willis MD Primary Care Provider [phone] Govind Navarro MD Unavailable [phone] Sher Xiong MD PhD Unavailable [phone] Russ Rand MD Unavailable [phone] Aamir Cox MD Unavailable Abdulkadir Santos MD Unavailable Leon Arroyo MD Unavailable [phone] Chidi Duke MD Unavailable Encounter Details Date Type Department Care Team (Late st Contact Info) Description 06/20/2024 Telephone [facility] Cardiology [id number] 8th [place] [address] [place] [address] Una Yañez Social History Tobacco [...] often do you attend chur ch or confucianism services? More than 4 times per year 04/07/2021 Do you belong to any clubs o r organizations such as latter-day groups, unions, fraternal or athletic groups, or [...] place to sleep or slept in a snf (including now)? No 04/07/2021 Sex and Gender Information Value Date Recorded Sex Assigned at Not on file Legal Sex Male 1:36 AM PRODUCTION COST ESTIMATOR Gender Identity Male 03/05/2020 2:02 PM PRODUCTION COST ESTIMATOR Sexual Orientation Straight 07/09/2018 9: 09 PM CDT documented as of this encounter Miscellaneous Notes * Telephone Encounter - Rosa Maria Oneil RN - 06/27/2024 12:56 PM CDT Rafael Hernandez just faxed signed 3d pao delarosa. This is done * Telephone Encounter - Una Yañez - 06/26/2024 12:00 PM CDT DHAVAL HERRING WITH [facility] STATES HASN'T RECEIVED CARD CLEARANCE FOR PT. STATES FAX MACHINE WAS NOT WORKING YESTERDAY. PLEASE REFAX TO: [phone] * Telephone Encounter - Angela Harmon - 06/24/2024 3:00 PM CDT Dhaval Please re-fax pages 1 and 2 to [phone]. * Telephone Encounter - Gloria Choe - 06/20/2024 11:42 AM CDT Dhaval They are needing the clearance approval sent over. They said that they did not receive it. Please send again. * Telephone Encounter - Una Yañez - 06/20/2024 11:08 AM CDT DHAVAL LEWIS WITH DR PETE'S OFFICE([facility]) CALLING IN REGARDS TO PT'S CARD CLEARANCE. STATES DID NOT RECEIVE FIRST PAGE OF CLEARANCE WITH PT'S INFORMATION. STATES ONLY RECEIVED APPROVAL PAGE. PLEASE REFAX FAX [phone] documented in this encounter Plan of Treatment Not on file documented as of this encounter Visit Diagnoses Not on filedocumented in this encounter Care Teams Ad Terminal Makeup Operator Relationship Specialty Start Date End Date Shon Willis MD [address] INTERNAL MEDICINE [place] [phone] PCP - General Internal Medicine 10/23/18 Govind Navarro MD [address] [place] [address] Medical Oncologist/Sprinkler Fitter Apprentice Medical Oncology 02/09/20 Sher Xiong MD PhD [address] [place] [address] Consulting Physician Radiation Oncology 02/09/20 Russ Rand MD [address] [place] [address] Consulting Physician Otolaryngology 02/09/20 Aamir Cox MD [address] [place] [address] Radiation Oncology 03/13/20 Abdulkadir Santos MD [address] [place] [address] Medical Oncologist/Sprinkler Fitter Apprentice Medical Oncology 11/17/20 Leon Arroyo MD [address] [facility] [address] [place] [address] Consulting Physician Internal Medicine 03/31/21 Chidi Duke MD [address] [place] [address] Consulting Physician Internal Medicine 04/16/21 documented as of this encounter
--- OUTSIDE RECORDS SUMMARY | 2024-07-22 12:44 | XMS_ITS | Encounter Summary ---
Author Organization [facility] Address [address] [place] [address] Phone Care Team Providers Care Expediter Name Role Phone Shon Willis MD Primary Care Provider [phone] Govind Navarro MD Unavailable [phone] Sher Xiong MD PhD Unavailable [phone] Russ Rand MD Unavailable [phone] Aamir Cox MD Unavailable [phone] Abdulkadir Santos MD Unavailable Leon Arroyo MD Unavailable [phone] Chidi Duke MD Unavailable Encounter Details Date [...] any clubs o r organizations such as yazdanism groups, unions, fraternal or athletic groups, or [...] place to sleep or slept in a chcf (including now)? No 04/07/2021 Sex and Gender Information Value Date Recorded Sex Assigned at Not on file Legal Sex Male 1:36 AM CREATIVE SERVICES DIRECTOR Gender Identity Male 03/05/2020 2:02 PM CREATIVE SERVICES DIRECTOR Sexual Orientation Straight 07/09/2018 9: 09 PM [...] on filedocumented in this encounter Care Teams Expediter Relationship Specialty Start Date End Date Shon Willis MD [address] INTERNAL MEDICINE [place] [phone] PCP - General Internal Medicine 10/23/18 Govind Navarro MD [address] [place] [address] Medical Oncologist/Precision Lathe Operator Medical Oncology 02/09/20 Sher Xiong MD PhD [address] [place] [address] Consulting Physician Radiation Oncology 02/09/20 Russ Rand MD [address] [place] [address] Consulting Physician Otolaryngology 02/09/20 Aamir Cox MD [address] [facility] [address] [place] [address] Radiation Oncology 03/13/20 [place] [address] [place] [address] [address] [place] [address] Medical Oncologist/Precision Lathe Operator Medical Oncology 11/17/20 Leon Arroyo MD [address] [facility] [address] [place], [place] [id number] Consulting Physician Internal Medicine 03/31/21 Chidi Duke MD [address] [place] [address] Consulting Physician Internal Medicine 04/16/21 documented as of this encounter
--- OUTSIDE RECORDS SUMMARY | 2024-07-22 12:44 | XMS_ITS | Continuity of Care Document ---
Author Organization [facility] Address [address] [place] [address] [address] [place] [address] Phone Care Team Providers Care Lead Php Developer Name Role Phone Boby Lockett Unavailable Unavailable Procedures Procedure Date Office/outpatient Visit, Est Eye Exam, New Patient No Script Refraction Advance Directives Directive Yes / No Effective Date File Name No Information Encounters Encounter Description Practice Location Reason(s) For Visit Diagnoses Date Provider Providers Copied on Encounter Office/outpat ient Visit, Est [facility], [address], [place], [place], [id number], [place] tel:[phone] [facility] No Information 4[address] Levy Landis. Formerly named [facility] , [address], [place], [place], [facility], [place]. tel:[phone] [facility], [address] [place] [address] [address], [place], [place], [id number], [place] tel:[phone] [facility] No Information [address] Sol[address]. [address] [facility] [address], [place], [place], [facility], [place]. tel:[phone] Family History Family Member Type Diagnosis Age At Onset No Information Payers Payer name Insurance type Covered alliance party ID Authoriza tion(s) Medicare [facility] [id number] Social History Type Description Quantity Date Captured [...]
--- OUTSIDE RECORDS SUMMARY | 2024-07-22 12:44 | XMS_ITS | Clinical Summary ---
Author Organization [facility] Address [address] [facility] [place] [address] Care Team Providers Care Backside Grinder Name Role Phone Shon Willis MD Primary Care Provider [phone] Source Comments [facility],non-owned Affiliates and Associated Physician Practices is amultiple site organization consisting of ambulatory clinics and hospital sitesin [place], [place] and [place]. This disclosure is being madepursuant to the Care Everywhere program and may not contain all information available regarding this patient. Last updated 17.[facility] Allergies No known active allergies Medications * Be aware that medications may not be up to date on this document. Alwaysverify current medications with the patient. amLODIPine (NORVASC) 5 MG tablet Take 5 mg by mouth once daily 0 Active fluticasone propionate (FLONASE) 50 MCG/ACT nasal spray [place] 2 sprays into each nostril once daily [...] mouth 2 times daily Active nystatin (MYCOSTATIN) 702146 UNIT/GM ointment Apply a thin amount three [...] on file Legal Sex Male 6:37 AM NEWS CAMERA OPERATOR Gender Identity Not on file Sexual Orientation Not on file Last Filed Vital Signs Vital Sign Reading Time Taken Comments Blood Pressure 142/73 01/08/2020 9:46 AM NEWS CAMERA OPERATOR Pulse 75 01/08/2020 9:46 AM NEWS CAMERA OPERATOR Temperature 36.1 C (97 F) 12/04/2019 9:39 AM CDT Respiratory Rate - - Oxygen Saturation - - Inhaled Oxygen Concentration - - Weight 74.6 kg (164 lb 6.4 oz) 01/08/2020 9:46 A M NEWS CAMERA OPERATOR Height 177.8 cm (5' 10) 01/08/2020 9:46 AM NEWS CAMERA OPERATOR Body Mass Index 23.59 01/08/2020 9:46 AM NEWS CAMERA OPERATOR Plan of Treatment Health Maintenance Due Date [...] patient's age to complete this topic Insurance [facility] MANAGED MEDICARE ADV Care Teams Backside Grinder Relationship Specialty Start Date End Date Shon Willis MD [address] [place] [address] PCP - General 11/18/19
--- OUTSIDE RECORDS SUMMARY | 2024-07-22 12:44 | XMS_ITS | Clinical Summary ---
Author Organization [facility] Address [address] [place] [address] Care Team Providers Care Flat Clothier Name Role Phone Shon Willis MD Primary Care Provider [phone] Govind Navarro MD Unavailable [phone] Sher Xiong MD PhD Unavailable + [phone] Russ Rand MD Unavailable [phone] Aamir Cox MD Unavailable [phone] Abdulkadir Santos MD Unavailable [phone] Leon Arroyo MD Unavailable [phone] Chidi Duke MD Unavailable Allergies No known active allergies Medications folic [...] 03/10 Assessment & Plan (04/13/2021 3:08 PM SEWING INSPECTOR): Patient was found to have new A [...] weights Assessment & Plan (04/10/2021 6:39 AM SEWING INSPECTOR): Patient was found to have new A [...] 04/05/2021 Assessment & Plan (04/13/2021 3:06 PM SEWING INSPECTOR): CT chest (04/04) re-read by our radiologists showed new RUL PE. - transitioned to eliquis on 04-13 from heparin drip Assessment & Plan (04/10/2021 6:34 AM SEWING INSPECTOR): CT chest (04/04) re-read by our radiologists showed new RUL PE.. 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 - will monitor closely Assessment & Plan (04/10/2021 6:36 AM SEWING INSPECTOR): Baseline Cr 1-1.1, seems to have worsening renal failure since 03/31 which has now normalized. - willctm HTN (hypertension) 04/05/2021 Assessment & Plan (04/11/2021 12:14 PM SEWING INSPECTOR): Continue home metoprolol - continue lasix Assessment & Plan (04/10/2021 6:36 AM SEWING INSPECTOR): Resume home metoprolol and lasix Paroxysmal atrial fibrillation with RVR 04/05/19 Assessment & Plan (04/11/2021 12:15 PM SEWING INSPECTOR): Has new onset A fib w/ RVR on 03/30, started on metoprolol (cardizem discontinued) at [facility]. Self converted. Patient eventually developed A fib w/ RVR in the 140's-170's, that persisted at least >60 mins, w/ stable BP and no chest pain or AMS. Required metoprolol IV and ICU monitoring, now better controlled - continue metoprolol 25 BID, anticoagulation as per PE section Assessment & Plan (04/10/2021 6:35 AM SEWING INSPECTOR): Has new onset A fib w/ RVR on 03/30, started on metoprolol (cardizem discontinued) at [facility]. Self converted. Patient eventually developed A fib w/ RVR in the 140's-170's, that persisted at least >60 mins, w/ stable BP and no chest pain or AMS. Required metoprolol IV and ICU monitoring, now better controlled - continue metoprolol 25 BID, anticoagulation as per PE section Peripheral neuropathy 04/05/2021 Assessment & Plan (04/11/2021 12:15 PM SEWING INSPECTOR): Due to chemotherapy. - home vitamin B12 Assessment & Plan (04/05/2021 9:30 PM SEWING INSPECTOR): Due to chemotherapy. - Resume home vitamin B12 COPD (chronic obstructive pulmonary disease) Assessment & Plan (04/11/2021 12:14 PM SEWING INSPECTOR): On trilegy Ellipta and PRN albuterol at home. - cont home inhalers. Assessment & Plan (04/05/2021 9:50 PM SEWING INSPECTOR): On trilegy Ellipta and PRN albuterol at home. - Resume home inhalers. 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) 02/04/2020 Cancer Staging:Clinical stage from 01/28/2020:Stage III(cT2, cN1, cM0, p16-) - Signed by Sher Xiong MD PhD on 02/10/2020 Assessment & Plan (04/11/2021 12:15 PM SEWING INSPECTOR): Dx in 01/2020 w/ stage III disease, [...] onc Assessment & Plan (04/05/2021 9:30 PM SEWING INSPECTOR): Dx in 01/2020 w/ stage III disease, [...] (01/21/2020): Added automatically from request for surgery [id number] Benign prostate hyperplasia 12/04/2019 Hypercholesteremia 12/04/2019 Insomnia 12/04/2019 Primary cancer of left upper lobe of lung 2017 Resolved Problems Problem Noted Date Diagnosed Date Resolved Date Severe malnutrition 04/06/2021 11/09/19 22 Assessment & Plan (04/11/2021 12:15 PM SEWING INSPECTOR): Per RD note Dyspnea on exertion 04/05/2021 04/11/19 22 Assessment & Plan (04/05/2021 9:12 PM SEWING INSPECTOR): Due to large pericardial effusion w/ cardiac tamponade physiology, multifocal pneumonia, new RUL PE (despite eliquis) in addition to severe emphysema and metastatic NSCLC. P/w dyspnea on exertion that started on Monday and has progressively worsened. [facility] ([facility], CMP, pro-BNP, Troponin, CT [...] on Zosyn for multifocal pneumonia. Will need CONTACT LENS ASSISTANT eval due to concern for aspiration. - Cardio-oncology consulted for pericardiocentesis, will be done tomorrow AM as his last dose of Eliquis was on 04/04 in AM. - Hold off on therapeutic AC as INR is 2, and he is planned for pericardiocentesis. Multifocal pneumonia 04/05/2021 022 Assessment & Plan (04/05/2021 9:19 PM SEWING INSPECTOR): CT chest (04/05) at OSH re-read by our radiologists showed multifocal pneumonia, likely due to aspiration. - As per above, RVP, sputum cx, started zosyn and will need CONTACT LENS ASSISTANT eval once he is more stable. Non-small cell lung cancer 04/05/2021 0 05/21/2021 Assessment & Plan (04/11/2021 12:15 PM SEWING INSPECTOR): Dx in 08/2007 w/ stage I disease [...] onc Assessment & Plan (04/05/2021 9:30 PM SEWING INSPECTOR): Dx in 08/2007 w/ stage I disease [...] Description 07/18/2024 10:00 AM CDT Office Visit [facility] [address] [facility] [address] [place] [phone] Milena Francisco NP Chronic diastolic heart failure (HCC); Primary hypertension; Paroxysmal atrial fibrillation (HCC); Acute congestive heart failure, unspecified heart failure type (HCC) 07/18/2024 Documentation [facility] [address] [facility] Floor 8 [place] [address] Gail Pearson Rosibel 07/18/2024 Documentation [facility] [address] [facility] [address] [place] [address] Elizabeth Medina, sugar presser Clearance 06/20/2024 Telephone [facility] [address] [facility] 8th [place] [address] [place] [address] Una Yañez 06/20/2024 Documentation [facility] [address] [facility] Suite [facility] [place] [address] Elizabeth Medina, MUSA 06/04/2024 Orders Only [facility] Scanning, Provider 05/29/2024 Telephone [facility] [address] [place] [phone] Quynh Estrada 05/27/2024 Telephone [facility] [address] [place] [phone] Aisha Buckley, MUSA 05/24/2024 Telephone [facility] [address] [place] [phone] Bridgette Smith RN 05/21/2024 11:15 AM CDT Office Visit [facility] [address] [facility] [address] [place] [address] Abdulkadir Santos MD 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) (Primary Dx) 05/21/2024 9:45 AM CDT Office Visit [facility] [address] [place] [phone] Govind Navarro MD 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) (Primary Dx) 05/16/2024 7:53 AM CDT - 05/16/2024 11:59 PM CDT Hospital Encounter [facility] Radiology at [facility] [address] [place] [address] 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) Discharge Disposition: Discharge to home or self care 05/16/2024 7:53 AM CDT - 05/16/2024 11:59 PM CDT Hospital Encounter [facility] Radiology at [facility] [address] [place] [address] 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) Discharge Disposition: Discharge to home or self care 05/16/2024 7:30 AM CDT Clinical Support [address] [address] Primary cancer of left upper lobe of [...] often do you attend chur ch or mandaeism services? More than 4 times per year 04/07/2021 Do you belong to any clubs o r organizations such as mandaeism groups, unions, fraternal or athletic groups, or [...] place to sleep or slept in a senior living (including now)? No 04/07/2021 Sex and Gender Information Value Date Recorded Sex Assigned at Not on file Legal Sex Male 1:36 AM SEWING INSPECTOR Gender Identity Male 03/05/2020 2:02 PM SEWING INSPECTOR Sexual Orientation Straight 07/09/2018 9: 09 PM [...] 10/06/2029 10/07/2019 Medical Devices Implanted Type Area Repair Cameraman Device Identifier Shelf Expiration Date Model / Serial / Lot 8fr Dignity Mid-Sized Power Port Implanted:Qty : 1 on 03/02/2018 at [facility] Catheter Right: Chest Medcomp [id number] 01/05/2022 / 0 [id number] / [id number] Procedures Procedure Name Priority Date/Time Associated Diagnosis [...] MD LAB BLOOD ORDERABLES Kaylin dre Result [facility] [place] [address] * (ABNORMAL) Differential, auto (05/16/2024 7:42 AM CDT) Neutrophil abs 6.66(H) 1.50 - 6.50 K/cumm Comment:Testing performed by : [address] [address] Imm gran abs 0.03 0.00 - 0.10 K/cumm [facility] Lymphocyte abs 1.01 0.80 - 3.30 K/cumm [facility] Monocyte abs 1.01(H) 0.20 - 0.80 K/cumm [facility] Eosinophil abs 0.03 0.00 - 0.50 K/cumm [facility] Basophil abs 0.02 0.00 - 0.10 K/cumm [facility] Neutrophil pct 76.2 % [facility] Comment: Interpretive Data Percent cell count reference ranges are not reported, since discordance with absolute values may lead to misinterpretation of CBC data. Current Interpretive Data was last revised on 2017. Imm gran pct 0.3 % [facility] Comment: Interpretive Data Percent cell count reference ranges are not reported, since discordance with absolute values may lead to misinterpretation of CBC data. Current Interpretive Data was last revised on 2017. Lymphocyte pct 11.5 % [facility] Comment: Interpretive Data Percent cell count reference ranges are not reported, since discordance with absolute values may lead to misinterpretation of CBC data. Current Interpretive Data was last revised on 2017. Monocyte pct 11.5 % [facility] Comment: Interpretive Data Percent cell count reference ranges are not reported, since discordance with absolute values may lead to misinterpretation of CBC data. Current Interpretive Data was last revised on 2017. Eosinophil pct 0.3 % [facility] Comment: Interpretive Data Percent cell count reference ranges are not reported, since discordance with absolute values may lead to misinterpretation of CBC data. Current Interpretive Data was last revised on 2017. Basophil pct 0.2 % [facility] Comment: Interpretive Data Percent cell count reference ranges are not reported, since discordance with absolute values may lead to misinterpretation of CBC data. Current Interpretive Data was last revised on 2017. Blood 05/16/2024 7:42 AM CDT 05/16/2024 7:42 AM CDT us Govind Navarro MD LAB BLOOD ORDERABLES Kaylin erickson Result [facility] [place] [address] * (ABNORMAL) CBC with auto differential (05/16/2024 7:42 AM CDT) WBC 8.76 3.80 - 9.90 K/cumm Comment:Testing performed by : [address] [address] Hgb 10.1(L) 13.0 - 17.5 g/dL [facility] Comment:Testing performed by : [address] [address] Hct 35.1(L) 38.9 - 50.3 % [facility] Comment:Testing performed by : [address] [address] Plt 251 150 - 400 K/cumm [facility] Comment:Testing performed by : [address] [address] MPV 9.5 9.1 - 12.3 fL [facility] RBC 5.34 4.30 - 5.80 M/cumm [facility] MCV 65.7(L) 81.3 - 96.4 fL [facility] MCH 18.9(L) 27.1 - 33.3 pg [facility] MCHC 28.8(L) 32.3 - 35.7 g/dL [facility] RDW CV 18.9(H) 11.1 - 14.9 % [facility] RDW SD 43.0 35.7 - 48.1 fL [facility] NRBC abs 0.00 0.00 - 0.01 K/cumm [facility] ANC Prelim 6.66(H) 1.50 - 6.50 K/cumm [facility] Comment: Interpretive Data The rapid ANC is a preliminary automated count and may vary from the final ANC (Neut Abs) reported in the WBC differential that follows. Current interpretive data was last revised 2024. Blood 05/16/2024 7:42 AM CDT 05/16/2024 7:42 AM CDT us Govind Navarro MD LAB BLOOD ORDERABLES Kaylin erickson Result [facility] [place] [address] * (ABNORMAL) Comprehensive metabolic panel (05/16/2024 7:42 AM CDT) Sodium 137 135 - 145 mmol/L Comment:Testing performed by : [facility], [address] [place] [address] Potassium, pl 4.9 3.3 - 4.9 mmol/L [facility] Chloride 104 97 - 110 mmol/L [facility] CO2 26 22 - 32 mmol/L [facility] Anion gap 7 2 - 15 mmol/L [facility] BUN 16 6 - 25 mg/dL [facility] Creatinine 1.32(H) 0.80 - 1.30 mg/dL [facility] Glucose 88 70 - 199 mg/dL [facility] Comment: Interpretive Data Fasting glucose >/= 126 [...] Calcium 9.0 8.5 - 10.3 mg/dL [facility] Bilirubin, total 0.3 0.1 - 1.2 mg/dL [facility] Protein, pl 6.7 6.5 - 8.5 g/dL [facility] Albumin 3.7 3.5 - 5.0 g/dL [facility] Alk phos 34(L) 40 - 130 Units/L [facility] ALT 14 7 - 55 Units/L [facility] AST 17 10 - 50 Units/L [facility] Blood 05/16/2024 7:42 AM CDT 05/16/2024 7:42 AM CDT us Govind Navarro MD LAB BLOOD ORDERABLES Kaylin erickson Result Performing Organization Address City/State/[facility] Co de Phone Number [facility] [place] [address] from Last 3 Months Insurance U[employer] MEDICARE ADVANTAGE AETNA MEDICARE AETNA MEDICARE Advance Directives For more information, please contact: [phone] Documents on File Type Date Recorded Patient Front Desk Supervisor Expl anation ADVANCE DIRECTIVE 01/28/2020 5:40 AM [...] [facility] Alternate Health Care Agent Care Teams Flat Clothier Relationship Specialty Start Date End Date Shon Willis MD [address] [place] [address] PCP - General Internal Medicine 10/23/18 Govind Navarro MD [address] [place] [address] Medical Oncologist/Electrical Continuity Inspector Medical Oncology 02/09/20 Sher Xiong MD PhD [address] [place] [address] Consulting Physician Radiation Oncology 02/09/20 Russ Rand MD [address] [place] [address] Consulting Physician Otolaryngology 02/09/20 Aamir Cox MD [address] [place] [address] Radiation Oncology 03/13/20 Abdulkadir Santos MD [address] [place] [address] Medical Oncologist/Electrical Continuity Inspector Medical Oncology 11/17/20 Leon Arroyo MD [address] [facility] [address] [place] [address] Consulting Physician Internal Medicine 03/31/21 Chidi Duke MD [address] [place] [address] Consulting Physician Internal Medicine 04/16/21
--- OUTSIDE RECORDS SUMMARY | 2024-07-22 12:44 | XMS_ITS ---
Author Organization [facility] Address [address] [place] [address] Care Team Providers Care Managed Care Manager Name Role Phone Shon Willis MD Primary Care Provider [phone] Govind Navarro MD Unavailable [phone] Sher Xiong MD PhD Unavailable [phone] Russ Rand MD Unavailable [phone] Aamir Cox MD Unavailable [phone] Abdulkadir Santos MD Unavailable [phone] Leon Arroyo MD Unavailable [phone] Chidi Duke MD Unavailable Active Problems Problem Noted Date Diagnosed Date Pericardial effusion with cardiac tamponade 03/10 Assessment & Plan (04/13/2021 3:08 PM MANAGER LPN): Patient was found to have new A [...] weights Assessment & Plan (04/10/2021 6:39 AM MANAGER LPN): Patient was found to have new A [...] 04/05/2021 Assessment & Plan (04/13/2021 3:06 PM MANAGER LPN): CT chest (04/04) re-read by our radiologists showed new RUL PE. - transitioned to eliquis on 04-13 from heparin drip Assessment & Plan (04/10/2021 6:34 AM MANAGER LPN): CT chest (04/04) re-read by our radiologists showed new RUL PE.. - currently on heparin drip, will continue until repeat echo before transition to shelter anticoagulation Stage 3b chronic kidney disease 04/05/2021 Assessment & Plan (04/11/2021 12:15 PM MANAGER LPN): Baseline Cr 1-1.1, seems to have worsening renal failure since 03/31 which has now normalized. - will monitor closely Assessment & Plan (04/10/2021 6:36 AM MANAGER LPN): Baseline Cr 1-1.1, seems to have worsening renal failure since 03/31 which has now normalized. - willctm HTN (hypertension) 04/05/2021 Assessment & Plan (04/11/2021 12:14 PM MANAGER LPN): Continue home metoprolol - continue lasix Assessment & Plan (04/10/2021 6:36 AM MANAGER LPN): Resume home metoprolol and lasix Paroxysmal atrial fibrillation with RVR 04/05/19 Assessment & Plan (04/11/2021 12:15 PM MANAGER LPN): Has new onset A fib w/ RVR on 03/30, started on metoprolol (cardizem discontinued) at [facility]. Self converted. Patient eventually developed A fib w/ RVR in the 140's-170's, that persisted at least >60 mins, w/ stable BP and no chest pain or AMS. Required metoprolol IV and ICU monitoring, now better controlled - continue metoprolol 25 BID, anticoagulation as per PE section Assessment & Plan (04/10/2021 6:35 AM MANAGER LPN): Has new onset A fib w/ RVR on 03/30, started on metoprolol (cardizem discontinued) at [facility]. Self converted. Patient eventually developed A fib w/ RVR in the 140's-170's, that persisted at least >60 mins, w/ stable BP and no chest pain or AMS. Required metoprolol IV and ICU monitoring, now better controlled - continue metoprolol 25 BID, anticoagulation as per PE section Peripheral neuropathy 04/05/2021 Assessment & Plan (04/11/2021 12:15 PM MANAGER LPN): Due to chemotherapy. - home vitamin B12 Assessment & Plan (04/05/2021 9:30 PM MANAGER LPN): Due to chemotherapy. - Resume home vitamin B12 COPD (chronic obstructive pulmonary disease) Assessment & Plan (04/11/2021 12:14 PM MANAGER LPN): On trilegy Ellipta and PRN albuterol at home. - cont home inhalers. Assessment & Plan (04/05/2021 9:50 PM MANAGER LPN): On trilegy Ellipta and PRN albuterol at home. - Resume home inhalers. 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) 02/04/2020 Cancer Staging:Clinical stage from 01/28/2020:Stage III(cT2, cN1, cM0, p16-) - Signed by Sher Xiong MD PhD on 02/10/2020 Assessment & Plan (04/11/2021 12:15 PM MANAGER LPN): Dx in 01/2020 w/ stage III disease, [...] onc Assessment & Plan (04/05/2021 9:30 PM MANAGER LPN): Dx in 01/2020 w/ stage III disease, [...] (01/21/2020): Added automatically from request for surgery [id number] Benign prostate hyperplasia 12/04/2019 Hypercholesteremia 12/04/2019 Insomnia [...] 11/09/19 Assessment & Plan (04/11/2021 12:15 PM MANAGER LPN): Per RD note Dyspnea on exertion 04/05/2021 04/11/19 Assessment & Plan (04/05/2021 9:12 PM MANAGER LPN): Due to large pericardial effusion w/ cardiac tamponade physiology, multifocal pneumonia, new RUL PE (despite eliquis) in addition to severe emphysema and metastatic NSCLC. P/w dyspnea on exertion that started on Monday and has progressively worsened. Presented to [facility] ED (CBC, CMP, pro-BNP, Troponin, CT [...] on Zosyn for multifocal pneumonia. Will need FOOD VENDOR eval due to concern for aspiration. - Cardio-oncology consulted for pericardiocentesis, will be done tomorrow AM as his last dose of Eliquis was on 04/04 in AM. - Hold off on therapeutic AC as INR is 2, and he is planned for pericardiocentesis. Multifocal pneumonia 04/05/2021 022 Assessment & Plan (04/05/2021 9:19 PM MANAGER LPN): CT chest (04/05) at OSH re-read by our radiologists showed multifocal pneumonia, likely due to aspiration. - As per above, RVP, sputum cx, started zosyn and will need FOOD VENDOR eval once he is more stable. Non-small cell lung cancer 04/05/2021 0 05/21/2021 Assessment & Plan (04/11/2021 12:15 PM MANAGER LPN): Dx in 08/2007 w/ stage I disease [...] onc Assessment & Plan (04/05/2021 9:30 PM MANAGER LPN): Dx in 08/2007 w/ stage I disease [...]
[2024-07-22 12:53] LABS: Hematocrit 36.4 % (42.0-52.0); Hemoglobin 10.2 g/dL (14.0-18.0)
[2024-07-22 12:59] LABS: Anion Gap 6 mmol/L (4-12); Blood Urea Nitrogen 21 mg/dL (9-20); Carbon Dioxide 23 mmol/L (22-30); Chloride 104 mmol/L (98-107); Estimated Glomerular Filt Rate 41; Glucose 97 mg/dL (65-110); Potassium 4.4 mmol/L (3.4-5.0); Sodium 133 mmol/L (137-145)
[2024-07-22 13:09] LABS: INR 1.4; Prothrombin Time 16.7 Seconds (11.1-14.7)
[2024-07-22 13:10] LABS: Partial Thromboplastin Time 36.7 Seconds (22.3-36.8)
== END 2024-07-22 11:26 | disposition home or self-care (01) ==
LOC: ANHSURGERY 11:26
PROVIDERS: Anesthesiology; PCP Internal Medicine; Visit Provider Surgery
DX: Z01.818 Encounter for other preprocedural examination (principal); R94.31 Abnormal electrocardiogram [ECG] [EKG]; K40.90 Unilateral inguinal hernia, without obstruction or gangrene, not specified as recurrent; N18.30 Chronic kidney disease, stage 3 unspecified; D64.9 Anemia, unspecified; K92.1 Melena; E78.5 Hyperlipidemia, unspecified; R06.09 Other forms of dyspnea; I50.30 Unspecified diastolic (congestive) heart failure; I47.10 Supraventricular tachycardia, unspecified; I49.49 Other premature depolarization
CPT/HCPCS: 36415; 80048; 85014; 85018; 85610; 85730; 86850; 86900; 86901; 93005

== ENCOUNTER 2024-07-24 13:53 | Inpatient (IN) | payer MEDICARE, SELFPAY ==
[2024-07-24] VITALS (17 sets, daily range): BP systolic 97–148; BP diastolic 44–87; PULSE 82–146; RESP 18–28; TEMP 36.6–36.9; O2SAT 78–100; BMI 21.7
--- NOTE | ~2024-07-24 | XR_ITS ---
CHEST RADIOGRAPH CLINICAL HISTORY: a fib . COMPARISON: 07/24/2024 TECHNIQUE: Single portable view of the chest. FINDINGS Right internal jugular central venous port catheter with its tip projecting over the proximal right a trium. The remainder of the cardiomediastinal silhouette is otherwise unremarkable. Volume loss within the left hemithorax with left apical scarring, unchanged from prior. Severe centrilobular emphysematous disease with apical bulla suspected. Increased interstitial markings detected within the bilateral lung bases, unchanged from previous exa mination performed approximately 24 hours earlier. No pleural effusion is appreciated. IMPRESSION: No focal infiltrate or effusion. Stable volume loss within the left hemithorax with left apical scarring, unchanged. Reviewed, dictated and finalized at location A. IMPRESSION: No focal infiltrate or effusion. Stable volume loss within the left hemithorax with left apical scarring, unchan ged.
--- NOTE | ~2024-07-24 | XR_ITS ---
CHEST RADIOGRAPH, PA AND LATERAL CLINICAL HISTORY: SOA . COMPARISON: 03/04/2021 TECHNIQUE: PA and lateral views of the chest. FINDINGS Right internal jugular central venous port catheter identified with its tip injecting over the proxim al right atrium. The remainder of the cardiomediastinal silhouette is otherwise unremarkable. Volume loss within the left hemithorax, unchanged from prior. Elevation of the left hemidiaphragm with adjacent compressive atelectasis. Coarse interstitial lung markings within the right lung base, unchanged from prior. IMPRESSION: Chronic interstitial change with left-sided volume loss, without focal infiltrate or effusion. Reviewed, dictated and finalized at location A. IMPRESSION: Chronic interstitial change with left-sided volume loss, without focal infiltra te or effusion.
--- NOTE | ~2024-07-24 | CT_ITS ---
EXAMINATION: CT diagnostic chest wo con DATE: 07/27/2024 09:46 INDICATION: COPD, Pneumonia, history lung cancer TECHNIQUE: Computed tomography (CT) of the chest was performed without intravenous contrast. Addition al 3D reconstructions utilizing coronal maximum intensity projection (MIP) were performed. Automated exposure control and iterative reconstruction technique were employed. The dose-length product was 36 8.55 mGy-cm. COMPARISON: 04/04/2021 FINDINGS: Severe emphysema. Postoperative change of prior left upper lobectomy. There is paramediastinal scarri ng with some associated bronchiectasis in the medial left upper lobe and additional and mediastinal s carring at the posterior medial aspect of the right upper lobe which could be secondary to prior radi ation treatment. There are multiple pulmonary nodules in the right upper and lower lobes, the largest measuring up to 1 cm. There is some septal line thickening at the bilateral lung bases, right greate r than left consistent with mild pulmonary edema. Small right pleural effusion. Heart size is normal. Atherosclerotic coronary artery calcification. Aortic valve calcific lesion. No pericardial effusion . Thoracic aorta is normal in caliber. Interval increase in size of a previously 1.7 x 1.3 cm precari nal lymph node currently measuring 2.5 x 1.8 cm. No other pathologically enlarged thoracic lymphadeno brown. Mild likely age-related atrophy at the visualized upper poles of the kidneys with 2.8 cm axial ly cyst at the upper pole the right kidney. No thoracic dextroscoliosis with mild to moderate spondyl osis. Severe spondylosis at the lower cervical spine. IMPRESSION: 1. Severe emphysema with several new pulmonary nodules in the right upper and lower lobes measuring u p to 1 cm which are most likely infectious/inflammatory in etiology but would recommend 3 month follo w-up low-dose noncontrast chest CT for further evaluation. 2. Status post left upper lobectomy with paramediastinal scarring in the bilateral upper lobes with d istribution suggesting sequela prior radiation treatment. 3. Small right pleural effusion. Reviewed, dictated and finalized at location A. IMPRESSION: 1. Severe emphysema with several new pulmonary nodules in the right upper and l ower lobes measuring up to 1 cm which are most likely infectious/inflammatory i n etiology but would recommend 3 month follow-up low-dose noncontrast chest CT for further evaluation. 2. Status post left upper lobectomy with paramediastinal scarring in the bilate ral upper lobes with distribution suggesting sequela prior radiation treatment. 3. Small right pleural effusion.
--- NOTE | 2024-07-24 13:55 | ECG_ITS ---
Test Date: 2024-07-24 13:57:46 Measurements Intervals [place] Rate: 146 P: 0 AR: 0 QRS: 58 QRSD: 85 T: 48 QT: 281 QTc: 438 Interpretive Statements ATRIAL FLUTTER WITH RAPID VENTRICULAR RESPONSE DELAYED PRECORDIAL R/S TRANSITION LOW QRS VOLTAGE IN LIMB LEADS BORDERLINE ST-T WAVE ABNORMALITY- INFERIOR LEADS BASELINE ARTIFACT- I, II, AVR, AVL, AVF, V1 ABNORMAL ECG Compared to ECG 07/22/2024 11:49:09 SINUS RHYTHM NO LONGER PRESENT Electronically Signed On 07-24-2024 14:04:30 CDT by Miles Galvan D.O.
[2024-07-24 14:22] LABS: Hematocrit 40.1 % (42.0-52.0); Hemoglobin 11.3 g/dL (14.0-18.0); Immature Granulocyte Percent A 0.8 % (0-0.5); Immature Platelet Fraction Pct 4.9 % (0.9-11.2); Lymphocytes Absolute Auto 0.54 K/mm3 (0.9-3.2); Mean Corpuscular HGB Conc 28.2 g/dl (32-36); Mean Corpuscular Hemoglobin 18.9 pg (26-34); Mean Corpuscular Volume 67.1 fl (80-100); Nucleated Red Blood Cells Absolute Auto 0.000 K/mm3 (0.0-0.012); Nucleated Red Blood Cells Perc 0.0 % (0.0-0.2); Platelet Count Result 261 k/mm3 (150-375); Red Blood Count 5.98 M/mm3 (4.6-6.20); White Blood Count 18.9 K/mm3 (4.5-10.0)
[2024-07-24 14:31] LABS: INR 1.3; Prothrombin Time 16.3 Seconds (11.1-14.7)
[2024-07-24 14:32] LABS: Alanine Aminotransferase 24 U/L (6-50); Albumin Level 4.1 g/dL (3.5-5.1); Alkaline Phosphatase 49 U/L (38-126); Anion Gap 9 mmol/L (4-12); Aspartate Amino Transferase 34 U/L (17-59); Bilirubin,Total 0.9 mg/dL (0.2-1.3); Blood Urea Nitrogen 25 mg/dL (9-20); Calcium 9.4 mg/dL (8.4-10.2); Carbon Dioxide 22 mmol/L (22-30); Chloride 106 mmol/L (98-107); Estimated CRCL calculation 29 ml/min; Estimated Glomerular Filt Rate 42; Glucose 73 mg/dL (65-110); Partial Thromboplastin Time 36.3 Seconds (22.3-36.8); Potassium 4.6 mmol/L (3.4-5.0); Sodium 137 mmol/L (137-145); Total Protein 7.5 g/dL (6.3-8.2)
[2024-07-24 14:43] LABS: Band Neutrophils Percent 0 % (0-6)
[2024-07-24 14:44] LABS: Hypochromasia 1+; Microcytosis 2+ (NORMAL)
[2024-07-24 14:45] LABS: Anisocytosis 2+; NT Pro B Type Natriuretic Pept 7640 pg/mL (19.9-100)
[2024-07-24 14:46] LABS: Troponin I 0.098 ng/mL (0.000-0.034)
[2024-07-24 14:50] LABS: Schistocytes None Seen
--- NOTE | 2024-07-24 15:37 | ED.GENADULT ---
HPI - General Adult General Chief complaint: Shortness of Breath/Dyspnea Stated complaint: SOB History of Present Illness HPI narrative: Patient is an 84-year-old male who presents ER with shortness of breath. Originally gone to urgent care and was found to be hypoxic with elevated heart rate. No chest pain. Has a wet productive cough worsening over last few weeks. No chest pain. No syncope. Blood pressure initially low. Has history of left upper lobe excision. Shortness of breath is worse with exertion and with lying down. Related Data Home Medications ?Medication ?Instructions ?Recorded ?Confirmed ?Last Taken ?Type lidocaine-prilocaine 2.5 %-2.5 % 1 applic topical ONCE PRN for 01/09/19 07/22/24 07/21/24 History topical cream ramona cath during chemo tamsulosin 0.4 mg capsule 0.4 mg PO DAILY 01/23/19 07/22/24 07/21/24 History finasteride 5 mg tablet 5 mg PO DAILY 05/27/20 07/22/24 07/21/24 History gabapentin 100 mg capsule 100 mg PO Q12H 07/01/20 07/22/24 07/21/24 History dexamethasone 4 mg tablet 8 mg PO DAILY PRN chemo 10/14/20 07/18/24 Unknown History Eliquis 5 mg PO BID 04/04/21 07/22/24 07/12/24 12:27 History cholecalciferol (vitamin D3) 50 50 mcg PO DAILY 04/05/22 07/18/24 Unknown History mcg (2,000 unit) capsule dapagliflozin propanediol 10 mg 10 mg PO DAILY 07/24/23 07/22/24 07/21/24 History tablet (Farxiga) spironolactone 25 mg tablet 25 mg PO .QOD 09/26/23 07/22/24 07/21/24 History metoprolol succinate 25 mg 12.5 mg PO DAILY 02/06/24 07/22/24 07/21/24 History tablet,extended release 24 hr cyanocobalamin (vitamin B-12) 1,000 mcg PO DAILY 07/16/24 07/22/24 07/21/24 History 1,000 mcg tablet (Vitamin B-12) folic acid 400 mcg tablet 400 mcg PO DAILY 07/16/24 07/22/24 07/21/24 History levothyroxine 88 mcg tablet 44 mcg PO DAILY 07/16/24 07/22/24 07/21/24 History (Synthroid) acetaminophen 325 mg tablet 325 mg PO Q6H PRN pain 07/18/24 07/22/24 07/22/24 09:00 History (Tactinal) dutasteride 0.5 mg capsule 0.5 mg PO .daily 07/18/24 07/22/24 Unknown History ferrous sulfate 325 mg (65 mg 325 mg PO BID 07/23/24 Unknown History iron) tablet,delayed release Allergies Allergy/AdvReac Type Severity Reaction Status Date / Time No Known Allergies Allergy Verified 07/18/24 13:49 Review of Systems Review of Systems: All systems reviewed & are unremarkable except as noted in HPI and below Constitutional: Constitutional: Reports no additional constitutional complaints ENT: Reports system reviewed and no additional complaints, except as documented Cardiovascular: Cardiovascular: Reports no additional cardiovascular complaints Respiratory: Respiratory: Reports no additional respiratory complaints Musculoskeletal: Musculoskeletal: Reports no additional musculoskeletal complaints Integumentary/Breasts: Skin/Breast: Reports system reviewed and no additional complaints, except as docu [facility] Past Medical History Medical History (Updated 07/24/24 @ 17:24 by Chidi Haque MD) Cancer of lung, throat, head, neck and tongue Occult blood in stools Low hemoglobin Chronic obstructive pulmonary disease, unspecified Arthritis Right groin pain Head and neck cancer Heart failure with preserved ejection fraction Encounter for Medicare annual wellness exam BEASLEY (dyspnea on exertion) Lateral epicondylitis of right elbow BMI 21.0-21.9, adult Right leg pain Hypothyroidism (acquired) Dyspnea Injury of lip Vitamin D deficiency Borderline abnormal TFTs Palpitations Peripheral neuropathy Depression PAC (premature atrial contraction) SVT (supraventricular tachycardia) Ectopic beats Dry mouth BMI 23.0-23.9, adult Follow up BMI 22.0-22.9, adult Constipation Urinary retention BMI 24.0-24.9, adult Squamous cell cancer of tongue Metastatic lung cancer (metastasis from lung to other site) Anxiety BMI 26.0-26.9,adult Dysphagia Cellulitis Thrush Odynophagia Chronic sore throat Encounter for routine adult health examination with abnormal findings BMI 27.0-27.9,adult Essential (primary) hypertension History of tobacco use Hx of cancer of lung Malignant neoplasm of hilus of lung Pulmonary emphysema Insomnia Pedal edema Hyperlipidemia Benign essential hypertension Encounter for routine adult health examination without abnormal findings 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 BPH (benign prostatic hyperplasia) Surgical History Surgical History (Reviewed 06/26/24 @ 11:19 by Arminda Jones [facility]) History of lobectomy of lung 2008 removal of upper lobe left lung Family History Family History (Reviewed 06/26/24 @ 11:19 by Arminda Jones [facility]) Sibling Family history of allergic disorder Father Family history of emphysema Family history of chronic obstructive pulmonary disease Mother Family history of emphysema, Onset Age: 89 Family history of malignant neoplasm of breast in first degree relative Family history of malignant neoplasm of breast Social History Social History (Reviewed 06/26/24 @ 11:19 by Arminda Jones [facility]) Smoking packs per day: 1.5 Smoking cigarettes per day: 30.0 Years smoked: 40 Smoking pack-years: 60.00 Smoking status: Former smoker Tobacco type: cigarettes Second hand tobacco smoke exposure: No Smoking end date: 07/08/07 Alcohol intake: former Alcohol use details: None since 1995 Substance use: never Substance use type: does not use Do You Feel Safe in your Home?: Yes Lack of Transportation: No Lack of Food: Never True Current Housing: I Have Housing Concerned About Future Housing: No Difficulty Paying Gas/Electric Bills: No Difficulty Paying for Meds: No Currently Unemployed: No Education: Master's Degree or Higher Difficulty w/ Childcare or Family Care: No Living arrangements: with family Gender identity (if verbalized by the patient): Male Spiritual care concerns: No Agree to blood products: Yes Exam Narrative: GENERAL: Chronically ill-appearing, well-nourished, and in no acute distress. HEAD: Normocephalic, atraumatic. EYES: PERRL and EOMI. ENT: Mucous membranes moist. NECK: Supple. CHEST: Clear to auscultation. No respiratory distress. HEART: Tachycardic and regular. Normal peripheral pulses. ABDOMEN: Soft, nontender, nondistended. EXTREMITIES: Normal range of motion. No edema. SKIN: Warm, dry, no rash. NEURO: Alert and oriented x3. PSYCH: Normal mood and affect. Course Course Emergency Course: Patient resting comfortably. Informed of results. Concern for sepsis and pneumonia given symptoms, elevated white count/lactic acid and tachycardia. Admit to hospitalist service. 30 milliliter/kilogram IV fluid bolus ordered/given with improvement of heart rate and blood pressure. Vital Signs Vital signs: Vital Signs Temperature 97.8 F 07/24/24 14:01 Pulse Rate 145 H 07/24/24 14:01 Respiratory Rate 20 07/24/24 14:01 Blood Pressure 99/72 L 07/24/24 14:01 Pulse Oximetry 88 L 07/24/24 14:01 Oxygen Delivery Room Air 07/24/24 14:01 Temperature 97.8 F 07/24/24 14:01 Pulse Rate 141 H 07/24/24 14:30 Respiratory Rate 21 H 07/24/24 14:30 Blood Pressure 134/76 07/24/24 14:30 Pulse Oximetry 98 07/24/24 14:31 Oxygen Delivery Nasal Cannula 07/24/24 14:31 Oxygen Flow Rate 2 07/24/24 14:31 Medical Decision Making Vital Signs Vital Signs: Vital Signs Temperature 97.8 F 07/24/24 14:01 Pulse Rate 145 H 07/24/24 14:01 Respiratory Rate 20 07/24/24 14:01 Blood Pressure 99/72 L 07/24/24 14:01 Pulse Oximetry 88 L 07/24/24 14:01 Oxygen Delivery Room Air 07/24/24 14:01 Temperature 97.8 F 07/24/24 14:01 Pulse Rate 141 H 07/24/24 14:30 Respiratory Rate 21 H 07/24/24 14:30 Blood Pressure 134/76 07/24/24 14:30 Pulse Oximetry 98 07/24/24 14:31 Oxygen Delivery Nasal Cannula 07/24/24 14:31 Oxygen Flow Rate 2 07/24/24 14:31 Lab Data 07/24/24 14:14 07/24/24 14:14 Labs: Lab Results 07/24/24 07/24/24 Range/Units 14:14 14:20 WBC 18.9 H (4.5-10.0) K/mm3 RBC 5.98 (4.6-6.20) M/mm3 Hgb 11.3 L (14.0-18.0) g/dL Hct 40.1 L (42.0-52.0) % MCV 67.1 L (80-100) fl MCH 18.9 L (26-34) pg MCHC 28.2 L (32-36) g/dl RDW 20.0 H (11.5-14.5) % Plt Count 261 (150-375) k/mm3 MPV TNP Immature Gran % (Auto) 0.8 H (0-0.5) % Neut % (Auto) 86.8 H (45.5-73.1) % Lymph % (Auto) 2.9 L (18.3-44.2) % [place] % (Auto) 9.4 H (2.6-8.5) % Eos % (Auto) 0.0 (0-4.4) % Baso % (Auto) 0.1 L (0.2-1.2) % Lymph # (Auto) 0.54 L (0.9-3.2) K/mm3 [place] # (Auto) 1.8 H (0.1-0.6) K/mm3 Eos # (Auto) 0.0 (0-0.3) K/mm3 Baso # (Auto) 0.0 (0.0-0.1) K/mm3 Abs Immat Gran (auto) 0.16 H (0.00-0.031) K/mm3 Absolute Neuts (auto) 16.4 H (1.3-6.7) K/mm3 Absolute Nucleated RBC 0.000 (0.0-0.012) K/mm3 Band Neutrophils % 0 (0-6) % Nucleated RBC % 0.0 (0.0-0.2) % Platelet Estimate Adequate (Adequate) % Immature Plt Fraction 4.9 (0.9-11.2) % Hypochromasia 1+ Anisocytosis 2+ Microcytosis 2+ (NORMAL) Schistocytes None seen PT 16.3 H (11.1-14.7) Seconds INR 1.3 APTT 36.3 (22.3-36.8) Seconds Sodium 137 (137-145) mmol/L Potassium 4.6 (3.4-5.0) mmol/L Chloride 106 (98-107) mmol/L Carbon Dioxide 22 (22-30) mmol/L Anion Gap 9 (4-12) mmol/L BUN 25 H (9-20) mg/dL Creatinine 1.58 H (0.7-1.3) mg/dL Estim Creat Clear Calc 29 ml/min Estimated GFR 42 L (59 - ) Glucose 73 (65-110) mg/dL Lactic Acid 2.5 H (0.7-2.0) mmol/L Calcium 9.4 (8.4-10.2) mg/dL Total Bilirubin 0.9 (0.2-1.3) mg/dL AST 34 (17-59) U/L ALT 24 (6-50) U/L Alkaline Phosphatase 49 (38-126) U/L Troponin I 0.098 H* (0.000-0.034) ng/mL NT-Pro-B Natriuret Pep 7640 H (19.9-100) pg/mL Total Protein 7.5 (6.3-8.2) g/dL Albumin 4.1 (3.5-5.1) g/dL Imaging Data Radiologist's impression: ITS Impressions Chest X-Ray 07/24/24 15:16 IMPRESSION: Chronic interstitial change with left-sided volume loss, without focal infiltrate or effusion. ECG Data EKG #1: ECG completion date: 07/24/24 ECG completion time: 13:57 EKG Interpretation: tachycardia (146), sinus rhythm, non-specific ST changes and normal QRS Critical Care Time Critical Care Time Critical Care Time: Yes Total Critical Care Time: 35 Discharge Plan Discharge Clinical Impression: Pneumonia, Hypoxia Patient Disposition: Still a Patient Condition: Stable
[2024-07-24] MEDS: SODIUM CHLORIDE 0.9% IV 1,000 ML 999 ML IV CONT ×2 (15:46)
--- OUTSIDE RECORDS SUMMARY | 2024-07-24 16:05 | XMS_ITS ---
Author Organization [facility] Address [address] [place] [address] Care Team Providers Care Benefits Advisor Name Role Phone Shon Willis MD Primary Care Provider [phone] Govind Navarro MD Unavailable [phone] Sher Xiong MD PhD Unavailable [phone] Russ Rand MD Unavailable [phone] Aamir Cox MD Unavailable [phone] Abdulkadir Santos MD Unavailable [phone] Leon Arroyo MD Unavailable [phone] Chidi Duke MD Unavailable Active Problems Problem Noted Date Diagnosed Date Pericardial effusion with cardiac tamponade 03/10 Assessment & Plan (04/13/2021 3:08 PM TYPING BOOKKEEPER): Patient was found to have new A [...] weights Assessment & Plan (04/10/2021 6:39 AM TYPING BOOKKEEPER): Patient was found to have new A [...] 04/05/2021 Assessment & Plan (04/13/2021 3:06 PM TYPING BOOKKEEPER): CT chest (04/04) re-read by our radiologists showed new RUL PE. - transitioned to eliquis on 04-13 from heparin drip Assessment & Plan (04/10/2021 6:34 AM TYPING BOOKKEEPER): CT chest (04/04) re-read by our radiologists showed new RUL PE.. - currently on heparin drip, will continue until repeat echo before transition to shelter anticoagulation Stage 3b chronic kidney disease 04/05/2021 Assessment & Plan (04/11/2021 12:15 PM TYPING BOOKKEEPER): Baseline Cr 1-1.1, seems to have worsening renal failure since 03/31 which has now normalized. - will monitor closely Assessment & Plan (04/10/2021 6:36 AM TYPING BOOKKEEPER): Baseline Cr 1-1.1, seems to have worsening renal failure since 03/31 which has now normalized. - willctm HTN (hypertension) 04/05/2021 Assessment & Plan (04/11/2021 12:14 PM TYPING BOOKKEEPER): Continue home metoprolol - continue lasix Assessment & Plan (04/10/2021 6:36 AM TYPING BOOKKEEPER): Resume home metoprolol and lasix Paroxysmal atrial fibrillation with RVR 04/05/19 Assessment & Plan (04/11/2021 12:15 PM TYPING BOOKKEEPER): Has new onset A fib w/ RVR on 03/30, started on metoprolol (cardizem discontinued) at [facility]. Self converted. Patient eventually developed A fib w/ RVR in the 140's-170's, that persisted at least >60 mins, w/ stable BP and no chest pain or AMS. Required metoprolol IV and ICU monitoring, now better controlled - continue metoprolol 25 BID, anticoagulation as per PE section Assessment & Plan (04/10/2021 6:35 AM TYPING BOOKKEEPER): Has new onset A fib w/ RVR on 03/30, started on metoprolol (cardizem discontinued) at [facility]. Self converted. Patient eventually developed A fib w/ RVR in the 140's-170's, that persisted at least >60 mins, w/ stable BP and no chest pain or AMS. Required metoprolol IV and ICU monitoring, now better controlled - continue metoprolol 25 BID, anticoagulation as per PE section Peripheral neuropathy 04/05/2021 Assessment & Plan (04/11/2021 12:15 PM TYPING BOOKKEEPER): Due to chemotherapy. - home vitamin B12 Assessment & Plan (04/05/2021 9:30 PM TYPING BOOKKEEPER): Due to chemotherapy. - Resume home vitamin B12 COPD (chronic obstructive pulmonary disease) Assessment & Plan (04/11/2021 12:14 PM TYPING BOOKKEEPER): On trilegy Ellipta and PRN albuterol at home. - cont home inhalers. Assessment & Plan (04/05/2021 9:50 PM TYPING BOOKKEEPER): On trilegy Ellipta and PRN albuterol at home. - Resume home inhalers. 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) 02/04/2020 Cancer Staging:Clinical stage from 01/28/2020:Stage III(cT2, cN1, cM0, p16-) - Signed by Sher Xiong MD PhD on 02/10/2020 Assessment & Plan (04/11/2021 12:15 PM TYPING BOOKKEEPER): Dx in 01/2020 w/ stage III disease, [...] onc Assessment & Plan (04/05/2021 9:30 PM TYPING BOOKKEEPER): Dx in 01/2020 w/ stage III disease, [...] (01/21/2020): Added automatically from request for surgery [id number] Benign prostate hyperplasia 12/04/2019 Hypercholesteremia 12/04/2019 Insomnia [...] 11/09/19 Assessment & Plan (04/11/2021 12:15 PM TYPING BOOKKEEPER): Per RD note Dyspnea on exertion 04/05/2021 04/11/19 Assessment & Plan (04/05/2021 9:12 PM TYPING BOOKKEEPER): Due to large pericardial effusion w/ cardiac tamponade physiology, multifocal pneumonia, new RUL PE (despite eliquis) in addition to severe emphysema and metastatic NSCLC. P/w dyspnea on exertion that started on Monday and has progressively worsened. Presented to [facility] ED (CBC, CMP, pro-BNP, Troponin, CT [...] on Zosyn for multifocal pneumonia. Will need CLINICAL DATA ASSOCIATE eval due to concern for aspiration. - Cardio-oncology consulted for pericardiocentesis, will be done tomorrow AM as his last dose of Eliquis was on 04/04 in AM. - Hold off on therapeutic AC as INR is 2, and he is planned for pericardiocentesis. Multifocal pneumonia 04/05/2021 022 Assessment & Plan (04/05/2021 9:19 PM TYPING BOOKKEEPER): CT chest (04/05) at OSH re-read by our radiologists showed multifocal pneumonia, likely due to aspiration. - As per above, RVP, sputum cx, started zosyn and will need CLINICAL DATA ASSOCIATE eval once he is more stable. Non-small cell lung cancer 04/05/2021 0 05/21/2021 Assessment & Plan (04/11/2021 12:15 PM TYPING BOOKKEEPER): Dx in 08/2007 w/ stage I disease [...] onc Assessment & Plan (04/05/2021 9:30 PM TYPING BOOKKEEPER): Dx in 08/2007 w/ stage I disease [...]
--- OUTSIDE RECORDS SUMMARY | 2024-07-24 16:05 | XMS_ITS | Referral Summary ---
Author Organization [facility] Address [address] [place] [address] Care Team Providers Care Marzipan Molder Name Role Phone Shon Willis MD Primary Care Provider Govind Navarro MD Unavailable [phone] Sher Xiong MD PhD Unavailable [phone] Russ Rand MD Unavailable Aamir Cox MD Unavailable Abdulkadir Santos MD Unavailable Leon Arroyo MD Unavailable [phone] Chidi Duke MD Unavailable Encounters Date Type Department Care Team Description 07/18/2024 Documentation [facility] Oncology [address] [facility] [address] [facility] Floor 8 [place] [id number] Gail Pearson RMA 07/18/2024 Documentation [facility] Cardiology [address] [facility] [address] [facility] [address] [facility] [place] [address] Elizabeth Medina RN Cardiac Clearance 07/18/2024 10:00 AM CDT Office Visit [facility] Cardiology [address] [facility] [facility] [place] [address] Milena Francisco NP Chronic diastolic heart failure (HCC); Primary hypertension; Paroxysmal atrial fibrillation (HCC); Acute congestive heart failure, unspecified heart failure type (HCC) 06/20/2024 Telephone [facility] Cardiology [address] [facility] 8th [place] [address] [place] [address] YañezWoody rizvion 06/20/2024 Documentation [facility] Cardiology [address] [facility] [place] [address] Elizabeth Medina, MUSA 06/04/2024 Orders Only [facility] Scanning, Provider 05/29/2024 Telephone [facility] Oncology [address] [place] [phone] Quynh Estrada 05/27/2024 Telephone [facility] Oncology [address] [place] [phone] Aisha Buckley RN 05/24/2024 Telephone [facility] Oncology [address] [place] [phone] Bridgette Smith RN 05/21/2024 11:15 AM CDT Office Visit [facility] Oncology [address] [facility] [address] [place] [address] Abdulkadir Santos MD 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) (Primary Dx) 05/21/2024 9:45 AM CDT Office Visit [facility] Oncology [address] [place] [phone] Govind Navarro MD 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) (Primary Dx) 05/16/2024 7:53 AM CDT - 05/16/2024 11:59 PM CDT Hospital Encounter [facility] Radiology at [facility] [address] [place] [address] 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) Discharge Disposition: Discharge to home or self care 05/16/2024 7:30 AM CDT Clinical Support [address] [address] 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) 05/16/2024 7:53 AM CDT - 05/16/2024 11:59 PM CDT Hospital Encounter [facility] Radiology at [facility] [address] [place] [address] Primary cancer of left upper lobe of [...] 03/10 Assessment & Plan (04/13/2021 3:08 PM GYMNASTICS COACH OR INSTRUCTOR): Patient was found to have new A [...] weights Assessment & Plan (04/10/2021 6:39 AM GYMNASTICS COACH OR INSTRUCTOR): Patient was found to have new A [...] 04/05/2021 Assessment & Plan (04/13/2021 3:06 PM GYMNASTICS COACH OR INSTRUCTOR): CT chest (04/04) re-read by our radiologists showed new RUL PE. - transitioned to eliquis on 04-13 from heparin drip Assessment & Plan (04/10/2021 6:34 AM GYMNASTICS COACH OR INSTRUCTOR): CT chest (04/04) re-read by our radiologists showed new RUL PE.. - currently on heparin drip, will continue until repeat echo before transition to extermination supervisor anticoagulation Stage 3b chronic kidney disease 04/05/2021 Assessment & Plan (04/11/2021 12:15 PM GYMNASTICS COACH OR INSTRUCTOR): Baseline Cr 1-1.1, seems to have worsening renal failure since 03/31 which has now normalized. - will monitor closely Assessment & Plan (04/10/2021 6:36 AM GYMNASTICS COACH OR INSTRUCTOR): Baseline Cr 1-1.1, seems to have worsening renal failure since 03/31 which has now normalized. - willctm HTN (hypertension) 04/05/2021 Assessment & Plan (04/11/2021 12:14 PM GYMNASTICS COACH OR INSTRUCTOR): Continue home metoprolol - continue lasix Assessment & Plan (04/10/2021 6:36 AM GYMNASTICS COACH OR INSTRUCTOR): Resume home metoprolol and lasix Paroxysmal atrial fibrillation with RVR 04/05/19 Assessment & Plan (04/11/2021 12:15 PM GYMNASTICS COACH OR INSTRUCTOR): Has new onset A fib w/ RVR on 03/30, started on metoprolol (cardizem discontinued) at [facility]. Self converted. Patient eventually developed A fib w/ RVR in the 140's-170's, that persisted at least >60 mins, w/ stable BP and no chest pain or AMS. Required metoprolol IV and ICU monitoring, now better controlled - continue metoprolol 25 BID, anticoagulation as per PE section Assessment & Plan (04/10/2021 6:35 AM GYMNASTICS COACH OR INSTRUCTOR): Has new onset A fib w/ RVR on 03/30, started on metoprolol (cardizem discontinued) at [facility]. Self converted. Patient eventually developed A fib w/ RVR in the 140's-170's, that persisted at least >60 mins, w/ stable BP and no chest pain or AMS. Required metoprolol IV and ICU monitoring, now better controlled - continue metoprolol 25 BID, anticoagulation as per PE section Peripheral neuropathy 04/05/2021 Assessment & Plan (04/11/2021 12:15 PM GYMNASTICS COACH OR INSTRUCTOR): Due to chemotherapy. - home vitamin B12 Assessment & Plan (04/05/2021 9:30 PM GYMNASTICS COACH OR INSTRUCTOR): Due to chemotherapy. - Resume home vitamin B12 COPD (chronic obstructive pulmonary disease) Assessment & Plan (04/11/2021 12:14 PM GYMNASTICS COACH OR INSTRUCTOR): On trilegy Ellipta and PRN albuterol at home. - cont home inhalers. Assessment & Plan (04/05/2021 9:50 PM GYMNASTICS COACH OR INSTRUCTOR): On trilegy Ellipta and PRN albuterol at home. - Resume home inhalers. 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) 02/04/2020 Cancer Staging:Clinical stage from 01/28/2020:Stage III(cT2, cN1, cM0, p16-) - Signed by Sher Xiong MD PhD on 02/10/2020 Assessment & Plan (04/11/2021 12:15 PM GYMNASTICS COACH OR INSTRUCTOR): Dx in 01/2020 w/ stage III disease, [...] onc Assessment & Plan (04/05/2021 9:30 PM GYMNASTICS COACH OR INSTRUCTOR): Dx in 01/2020 w/ stage III disease, [...] (01/21/2020): Added automatically from request for surgery [id number] Benign prostate hyperplasia 12/04/2019 Hypercholesteremia 12/04/2019 Insomnia 12/04/2019 Primary cancer of left upper lobe of lung 2017 Resolved Problems Problem Noted Date Diagnosed Date Resolved Date Severe malnutrition 04/06/2021 11/09/19 Assessment & Plan (04/11/2021 12:15 PM GYMNASTICS COACH OR INSTRUCTOR): Per RD note Dyspnea on exertion 04/05/2021 04/11/19 Assessment & Plan (04/05/2021 9:12 PM GYMNASTICS COACH OR INSTRUCTOR): Due to large pericardial effusion w/ cardiac tamponade physiology, multifocal pneumonia, new RUL PE (despite eliquis) in addition to severe emphysema and metastatic NSCLC. P/w dyspnea on exertion that started on Monday and has progressively worsened. Presented to [facility] ED (CBC, CMP, pro-BNP, Troponin, CT [...] on Zosyn for multifocal pneumonia. Will need JEWEL GRINDER eval due to concern for aspiration. - Cardio-oncology consulted for pericardiocentesis, will be done tomorrow AM as his last dose of Eliquis was on 04/04 in AM. - Hold off on therapeutic AC as INR is 2, and he is planned for pericardiocentesis. Multifocal pneumonia 04/05/2021 022 Assessment & Plan (04/05/2021 9:19 PM GYMNASTICS COACH OR INSTRUCTOR): CT chest (04/05) at OSH re-read by our radiologists showed multifocal pneumonia, likely due to aspiration. - As per above, RVP, sputum cx, started zosyn and will need JEWEL GRINDER eval once he is more stable. Non-small cell lung cancer 04/05/2021 0 05/21/2021 Assessment & Plan (04/11/2021 12:15 PM GYMNASTICS COACH OR INSTRUCTOR): Dx in 08/2007 w/ stage I disease [...] onc Assessment & Plan (04/05/2021 9:30 PM GYMNASTICS COACH OR INSTRUCTOR): Dx in 08/2007 w/ stage I disease [...] Preservative Free, Intramuscular 10/03/2018,10/25/2017 Influenza, Unspecified 10/22/2020 [facility] ([facility]) SARS-CoV-2 Vaccination 04/25/2020 Pneumococcal Polysaccharide PPV23 [...] often do you attend chur ch or bahai services? More than 4 times per year [...] place to sleep or slept in a prison (including now)? No 04/07/2021 Sex and Gender Information Value Date Recorded Sex Assigned at Not on file Legal Sex Male 1:36 AM GYMNASTICS COACH OR INSTRUCTOR Gender Identity Male 03/05/2020 2:02 PM GYMNASTICS COACH OR INSTRUCTOR Sexual Orientation Straight 07/09/2018 9: 09 PM [...] on file Medical Devices Implanted Type Area Hiv Cts Specialist Device Identifier Shelf Expiration Date Model / Serial / Lot 8fr Dignity Mid-Sized Power Port Implanted:Qty : 1 on 03/02/2018 at [facility] Catheter Right: Chest Med[employer] [id number] 01/05/2022 / 0 [id number] / [id number] Procedures Procedure Name Priority Date/Time Associated Diagnosis [...] MD LAB BLOOD ORDERABLES Kaylin erickson Result [facility] Department [place] [address] * (ABNORMAL) Differential, auto (05/16/2024 7:42 AM CDT) Pathologist [facility] Neutrophil abs 6.66(H) 1.50 - 6.50 K/cumm Comment:Testing performed by : [facility], [address] [place] [id number] Imm gran abs 0.03 0.00 - 0.10 K/cumm [facility] Lymphocyte abs 1.01 0.80 - 3.30 K/cumm [facility] Monocyte abs 1.01(H) 0.20 - 0.80 K/cumm [facility] Eosinophil abs 0.03 0.00 - 0.50 K/cumm [facility] Basophil abs 0.02 0.00 - 0.10 K/cumm [facility] Neutrophil pct 76.2 % [facility] Comment: Interpretive Data Percent cell count reference ranges are not reported, since discordance with absolute values may lead to misinterpretation of CBC data. Current Interpretive Data was last revised on 2017. Imm gran pct 0.3 % [facility] Comment: Interpretive Data Percent cell count reference ranges are not reported, since discordance with absolute values may lead to misinterpretation of CBC data. Current Interpretive Data was last revised on 2017. Lymphocyte pct 11.5 % [facility] Comment: Interpretive Data Percent cell count reference ranges are not reported, since discordance with absolute values may lead to misinterpretation of CBC data. Current Interpretive Data was last revised on 2017. Monocyte pct 11.5 % [facility] Comment: Interpretive Data Percent cell count reference ranges are not reported, since discordance with absolute values may lead to misinterpretation of CBC data. Current Interpretive Data was last revised on 2017. Eosinophil pct 0.3 % [facility] Comment: Interpretive Data Percent cell count reference ranges are not reported, since discordance with absolute values may lead to misinterpretation of CBC data. Current Interpretive Data was last revised on 2017. Basophil pct 0.2 % [facility] Comment: Interpretive Data Percent cell count reference ranges are not reported, since discordance with absolute values may lead to misinterpretation of CBC data. Current Interpretive Data was last revised on 2017. Blood 05/16/2024 7:42 AM CDT 05/16/2024 7:42 AM CDT us Govind Navarro MD LAB BLOOD ORDERABLES Kaylin erickson Result [facility] Department of Laboratories [place], [place] [id number] * (ABNORMAL) CBC with auto differential (05/16/2024 7:42 AM CDT) WBC 8.76 3.80 - 9.90 K/cumm Comment:Testing performed by : [address] [address] Hgb 10.1(L) 13.0 - 17.5 g/dL [facility] Comment:Testing performed by : [address] [address] Hct 35.1(L) 38.9 - 50.3 % [facility] Comment:Testing performed by : [facility], [address] [place] [address] Plt 251 150 - 400 K/cumm [facility] Comment:Testing performed by : [facility], [address] [place] [address] MPV 9.5 9.1 - 12.3 fL [facility] RBC 5.34 4.30 - 5.80 M/cumm [facility] MCV 65.7(L) 81.3 - 96.4 fL [facility] MCH 18.9(L) 27.1 - 33.3 pg [facility] MCHC 28.8(L) 32.3 - 35.7 g/dL [facility] RDW CV 18.9(H) 11.1 - 14.9 % [facility] RDW SD 43.0 35.7 - 48.1 fL [facility] NRBC abs 0.00 0.00 - 0.01 K/cumm [facility] ANC Prelim 6.66(H) 1.50 - 6.50 K/cumm [facility] Comment: Interpretive Data The rapid ANC is a preliminary automated count and may vary from the final ANC (Neut Abs) reported in the WBC differential that follows. Current interpretive data was last revised 2024. Blood 05/16/2024 7:42 AM CDT 05/16/2024 7:42 AM CDT us Govind Navarro MD LAB BLOOD ORDERABLES Kaylin erickson Result [facility] [place] [address] * (ABNORMAL) Comprehensive metabolic panel (05/16/2024 7:42 AM CDT) Sodium 137 135 - 145 mmol/L Comment:Testing performed by : [facility], [address] [place] [address] Potassium, pl 4.9 3.3 - 4.9 mmol/L [facility] Chloride 104 97 - 110 mmol/L [facility] CO2 26 22 - 32 mmol/L [facility] Anion gap 7 2 - 15 mmol/L [facility] BUN 16 6 - 25 mg/dL [facility] Creatinine 1.32(H) 0.80 - 1.30 mg/dL [facility] Glucose 88 70 - 199 mg/dL [facility] Comment: Interpretive Data Fasting glucose >/= [...] 2022. Calcium 9.0 8.5 - 10.3 mg/dL [facility] Bilirubin, total 0.3 0.1 - 1.2 mg/dL [facility] Protein, pl 6.7 6.5 - 8.5 g/dL [facility] Albumin 3.7 3.5 - 5.0 g/dL [facility] Alk phos 34(L) 40 - 130 Units/L [facility] ALT 14 7 - 55 Units/L [facility] AST 17 10 - 50 Units/L [facility] Blood 05/16/2024 7:42 AM CDT 05/16/2024 7:42 AM CDT us Govind Navarro MD LAB BLOOD ORDERABLES Kaylin erickson Result [facility] [place] [address] from Last 3 Months Insurance [facility] MEDICARE ADVANTAGE [facility] MEDICARE [facility] MEDICARE Advance Directives For more information, please contact: [phone] Documents on File Type Date Recorded Patient Cnc Lathe Programmer Expl anation ADVANCE DIRECTIVE 01/28/2020 5:40 AM [...] First Alternate Health Care Agent Care Teams Marzipan Molder Relationship Specialty Start Date End Date Shon Willis MD [address] [facility] [place] [id number] PCP - General Internal Medicine 10/23/18 Govind Navarro MD [address] [place] [address] Medical Oncologist/Glass Enamel Mixer Medical Oncology 02/09/20 Sher Xiong MD PhD [address] [place] [address] Consulting Physician Radiation Oncology 02/09/20 Russ Rand MD [address] [place] [address] Consulting Physician Otolaryngology 02/09/20 Aamir Cox MD [address] [facility] [address] [place] [address] Radiation Oncology 03/13/20 Abdulkadir Santos MD [address] [place] [address] [address] [place] [address] Medical Oncologist/Glass Enamel Mixer Medical Oncology 11/17/20 Leon Arroyo MD [address] [facility] [address] [place] [address] Consulting Physician Internal Medicine 03/31/21 Chidi Duke MD [address] [place] [address] Consulting Physician Internal Medicine 04/16/21
--- OUTSIDE RECORDS SUMMARY | 2024-07-24 16:05 | XMS_ITS | Clinical Summary ---
Author Organization [facility] Address [address] [place] [address] Care Team Providers Care Presiding Judge Name Role Phone Shon Willis MD Primary Care Provider [phone] Govind Navarro MD Unavailable [phone] Sher Xiong MD PhD Unavailable + [phone] Russ Rand MD Unavailable [phone] Aamir Cox MD Unavailable [phone] Abdulkadir Santos MD Unavailable Leon Arroyo MD Unavailable [phone] Chidi Duke MD Unavailable Allergies No known [...] 03/10 Assessment & Plan (04/13/2021 3:08 PM LEAD ASSISTANT MANAGER): Patient was found to have new A [...] weights Assessment & Plan (04/10/2021 6:39 AM LEAD ASSISTANT MANAGER): Patient was found to have new A [...] 04/05/2021 Assessment & Plan (04/13/2021 3:06 PM LEAD ASSISTANT MANAGER): CT chest (04/04) re-read by our radiologists showed new RUL PE. - transitioned to eliquis on 04-13 from heparin drip Assessment & Plan (04/10/2021 6:34 AM LEAD ASSISTANT MANAGER): CT chest (04/04) re-read by our radiologists showed new RUL PE.. - currently on heparin drip, will continue until repeat echo before transition to intermediate accountant anticoagulation Stage 3b chronic kidney disease 04/05/2021 Assessment & Plan (04/11/2021 12:15 PM LEAD ASSISTANT MANAGER): Baseline Cr 1-1.1, seems to have worsening renal failure since 03/31 which has now normalized. - will monitor closely Assessment & Plan (04/10/2021 6:36 AM LEAD ASSISTANT MANAGER): Baseline Cr 1-1.1, seems to have worsening renal failure since 03/31 which has now normalized. - willctm HTN (hypertension) 04/05/2021 Assessment & Plan (04/11/2021 12:14 PM LEAD ASSISTANT MANAGER): Continue home metoprolol - continue lasix Assessment & Plan (04/10/2021 6:36 AM LEAD ASSISTANT MANAGER): Resume home metoprolol and lasix Paroxysmal atrial fibrillation with RVR 04/05/19 Assessment & Plan (04/11/2021 12:15 PM LEAD ASSISTANT MANAGER): Has new onset A fib w/ RVR on 03/30, started on metoprolol (cardizem discontinued) at [facility]. Self converted. Patient eventually developed A fib w/ RVR in the 140's-170's, that persisted at least >60 mins, w/ stable BP and no chest pain or AMS. Required metoprolol IV and ICU monitoring, now better controlled - continue metoprolol 25 BID, anticoagulation as per PE section Assessment & Plan (04/10/2021 6:35 AM LEAD ASSISTANT MANAGER): Has new onset A fib w/ RVR on 03/30, started on metoprolol (cardizem discontinued) at [facility]. Self converted. Patient eventually developed A fib w/ RVR in the 140's-170's, that persisted at least >60 mins, w/ stable BP and no chest pain or AMS. Required metoprolol IV and ICU monitoring, now better controlled - continue metoprolol 25 BID, anticoagulation as per PE section Peripheral neuropathy 04/05/2021 Assessment & Plan (04/11/2021 12:15 PM LEAD ASSISTANT MANAGER): Due to chemotherapy. - home vitamin B12 Assessment & Plan (04/05/2021 9:30 PM LEAD ASSISTANT MANAGER): Due to chemotherapy. - Resume home vitamin B12 COPD (chronic obstructive pulmonary disease) Assessment & Plan (04/11/2021 12:14 PM LEAD ASSISTANT MANAGER): On trilegy Ellipta and PRN albuterol at home. - cont home inhalers. Assessment & Plan (04/05/2021 9:50 PM LEAD ASSISTANT MANAGER): On trilegy Ellipta and PRN albuterol at home. - Resume home inhalers. 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) 02/04/2020 Cancer Staging:Clinical stage from 01/28/2020:Stage III(cT2, cN1, cM0, p16-) - Signed by Sher Xiong MD PhD on 02/10/2020 Assessment & Plan (04/11/2021 12:15 PM LEAD ASSISTANT MANAGER): Dx in 01/2020 w/ stage III disease, [...] onc Assessment & Plan (04/05/2021 9:30 PM LEAD ASSISTANT MANAGER): Dx in 01/2020 w/ stage III disease, [...] (01/21/2020): Added automatically from request for surgery [id number] Benign prostate hyperplasia 12/04/2019 Hypercholesteremia 12/04/2019 Insomnia 12/04/2019 Primary cancer of left upper lobe of lung 2017 Resolved Problems Problem Noted Date Diagnosed Date Resolved Date Severe malnutrition 04/06/2021 11/09/19 22 Assessment & Plan (04/11/2021 12:15 PM LEAD ASSISTANT MANAGER): Per RD note Dyspnea on exertion 04/05/2021 04/11/19 22 Assessment & Plan (04/05/2021 9:12 PM LEAD ASSISTANT MANAGER): Due to large pericardial effusion w/ cardiac tamponade physiology, multifocal pneumonia, new RUL PE (despite eliquis) in addition to severe emphysema and metastatic NSCLC. P/w dyspnea on exertion that started on Monday and has progressively worsened. Presented to [facility] ED (CBC, CMP, pro-BNP, Troponin, CT Chest [...] on Zosyn for multifocal pneumonia. Will need GRADING CLERK eval due to concern for aspiration. - Cardio-oncology consulted for pericardiocentesis, will be done tomorrow AM as his last dose of Eliquis was on 04/04 in AM. - Hold off on therapeutic AC as INR is 2, and he is planned for pericardiocentesis. Multifocal pneumonia 04/05/2021 022 Assessment & Plan (04/05/2021 9:19 PM LEAD ASSISTANT MANAGER): CT chest (04/05) at OSH re-read by our radiologists showed multifocal pneumonia, likely due to aspiration. - As per above, RVP, sputum cx, started zosyn and will need GRADING CLERK eval once he is more stable. Non-small cell lung cancer 04/05/2021 0 05/21/2021 Assessment & Plan (04/11/2021 12:15 PM LEAD ASSISTANT MANAGER): Dx in 08/2007 w/ stage I disease [...] onc Assessment & Plan (04/05/2021 9:30 PM LEAD ASSISTANT MANAGER): Dx in 08/2007 w/ stage I disease [...] Description 07/18/2024 10:00 AM CDT Office Visit [facility]iology [address] [facility] [address] [place] [phone] Milena Francisco NP Chronic diastolic heart failure (HCC); Primary hypertension; Paroxysmal atrial fibrillation (HCC); Acute congestive heart failure, unspecified heart failure type (HCC) 07/18/2024 Documentation [facility] Oncology [address] [facility] Floor 8 [place] [address] Gail Pearson Rosibel 07/18/2024 Documentation [facility] [address] [facility] [address] [place] [address] Elizabeth Medina, agricultural equipment mechanic Clearance 06/20/2024 Telephone [facility]iology [address] [facility] 8th [place] [address] [place] [address] Una Yañez 06/20/2024 Documentation [facility] [address] [facility] [address] [facility] [place] [address] Elizabeth Medina, MUSA 06/04/2024 Orders Only [facility] Scanning, Provider 05/29/2024 Telephone [facility] [address] [place] [phone] Quynh Estrada 05/27/2024 Telephone [facility] [address] [place] [phone] Aisha Buckley, MUSA 05/24/2024 Telephone [facility] [address] [place] [phone] Bridgette Smith RN 05/21/2024 11:15 AM CDT Office Visit [facility] Oncology [address] [facility] [address] [place] [address] Abdulkadir Santos MD 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) (Primary Dx) 05/21/2024 9:45 AM CDT Office Visit [facility] Oncology [address] [place] [phone] Govind Navarro MD 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) (Primary Dx) 05/16/2024 7:53 AM CDT - 05/16/2024 11:59 PM CDT Hospital Encounter [facility] Radiology at [facility] [address] [place] [address] 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) Discharge Disposition: Discharge to home or self care 05/16/2024 7:53 AM CDT - 05/16/2024 11:59 PM CDT Hospital Encounter [facility] Radiology at [facility] [address] [place] [address] 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) Discharge Disposition: Discharge to home or self care 05/16/2024 7:30 AM CDT Clinical Support [address] [address] Primary cancer of left upper lobe of [...] often do you attend chur ch or congregational services? More than 4 times per year [...] on file Legal Sex Male 1:36 AM LEAD ASSISTANT MANAGER Gender Identity Male 03/05/2020 2:02 PM LEAD ASSISTANT MANAGER Sexual Orientation Straight 07/09/2018 9: 09 PM [...] 10/06/2029 10/07/2019 Medical Devices Implanted Type Area Chemical Compounder Device Identifier Shelf Expiration Date Model / Serial / Lot 8fr Dignity Mid-Sized Power Port Implanted:Qty : 1 on 03/02/2018 at [facility] Catheter Right: Chest Medcomp [id number] 01/05/2022 / 0 [id number] / [id number] Procedures Procedure Name Priority Date/Time Associated Diagnosis [...] CDT 05/16/2024 7:42 AM CDT us Govind Naavrro MD LAB BLOOD ORDERABLES Kaylin dre Result [facility] Department [place] [address] * (ABNORMAL) Differential, auto (05/16/2024 7:42 AM CDT) Neutrophil abs 6.66(H) 1.50 - 6.50 K/cumm Comment:Testing performed by : [address] [address] Imm gran abs 0.03 0.00 - 0.10 K/cumm [facility] Lymphocyte abs 1.01 0.80 - 3.30 K/cumm [facility] Monocyte abs 1.01(H) 0.20 - 0.80 K/cumm [facility] Eosinophil abs 0.03 0.00 - 0.50 K/cumm [facility] Basophil abs 0.02 0.00 - 0.10 K/cumm [facility] Neutrophil pct 76.2 % [facility] Comment: Interpretive Data Percent cell count reference ranges are not reported, since discordance with absolute values may lead to misinterpretation of CBC data. Current Interpretive Data was last revised on 2017. Imm gran pct 0.3 % [facility] Comment: Interpretive Data Percent cell count reference ranges are not reported, since discordance with absolute values may lead to misinterpretation of CBC data. Current Interpretive Data was last revised on 2017. Lymphocyte pct 11.5 % [facility] Comment: Interpretive Data Percent cell count reference ranges are not reported, since discordance with absolute values may lead to misinterpretation of CBC data. Current Interpretive Data was last revised on 2017. Monocyte pct 11.5 % [facility] Comment: Interpretive Data Percent cell count reference ranges are not reported, since discordance with absolute values may lead to misinterpretation of CBC data. Current Interpretive Data was last revised on 2017. Eosinophil pct 0.3 % [facility] Comment: Interpretive Data Percent cell count reference ranges are not reported, since discordance with absolute values may lead to misinterpretation of CBC data. Current Interpretive Data was last revised on 2017. Basophil pct 0.2 % [facility] Comment: Interpretive Data Percent cell count reference ranges are not reported, since discordance with absolute values may lead to misinterpretation of CBC data. Current Interpretive Data was last revised on 2017. Blood 05/16/2024 7:42 AM CDT 05/16/2024 7:42 AM CDT us Govind Navarro MD LAB BLOOD ORDERABLES Kaylin erickson Result [facility] Department [place] [address] * (ABNORMAL) CBC with auto differential (05/16/2024 7:42 AM CDT) WBC 8.76 3.80 - 9.90 K/cumm Comment:Testing performed by : [address] [address] Hgb 10.1(L) 13.0 - 17.5 g/dL [facility] Comment:Testing performed by : [address] [address] Hct 35.1(L) 38.9 - 50.3 % [facility] Comment:Testing performed by : [address] [address] Plt 251 150 - 400 K/cumm [facility] Comment:Testing performed by : [address] [address] MPV 9.5 9.1 - 12.3 fL [facility] RBC 5.34 4.30 - 5.80 M/cumm [facility] MCV 65.7(L) 81.3 - 96.4 fL [facility] MCH 18.9(L) 27.1 - 33.3 pg [facility] MCHC 28.8(L) 32.3 - 35.7 g/dL [facility] RDW CV 18.9(H) 11.1 - 14.9 % [facility] RDW SD 43.0 35.7 - 48.1 fL [facility] NRBC abs 0.00 0.00 - 0.01 K/cumm [facility] ANC Prelim 6.66(H) 1.50 - 6.50 K/cumm [facility] Comment: Interpretive Data The rapid ANC is a preliminary automated count and may vary from the final ANC (Neut Abs) reported in the WBC differential that follows. Current interpretive data was last revised 2024. Blood 05/16/2024 7:42 AM CDT 05/16/2024 7:42 AM CDT us Govind Navarro MD LAB BLOOD ORDERABLES Kaylin erickson Result [facility] Department [place] [address] * (ABNORMAL) Comprehensive metabolic panel (05/16/2024 7:42 AM CDT) Sodium 137 135 - 145 mmol/L Comment:Testing performed by : [facility], [address] [place] [address] Potassium, pl 4.9 3.3 - 4.9 mmol/L [facility] Chloride 104 97 - 110 mmol/L [facility] CO2 26 22 - 32 mmol/L [facility] Anion gap 7 2 - 15 mmol/L [facility] BUN 16 6 - 25 mg/dL [facility] Creatinine 1.32(H) 0.80 - 1.30 mg/dL [facility] Glucose 88 70 - 199 mg/dL [facility] Comment: Interpretive Data Fasting glucose >/= [...] Calcium 9.0 8.5 - 10.3 mg/dL [facility] Bilirubin, total 0.3 0.1 - 1.2 mg/dL [facility] Protein, pl 6.7 6.5 - 8.5 g/dL [facility] Albumin 3.7 3.5 - 5.0 g/dL [facility] Alk phos 34(L) 40 - 130 Units/L [facility] ALT 14 7 - 55 Units/L [facility] AST 17 10 - 50 Units/L [facility] Blood 05/16/2024 7:42 AM CDT 05/16/2024 7:42 AM CDT us Govind Navarro MD LAB BLOOD ORDERABLES Kaylin erickson Result Performing Organization Address City/State/[facility] Co de Phone Number [facility] [place] [address] from Last 3 Months Insurance [employer] MEDICARE ADVANTAGE [facility] Address: [facility] [address] [place] [address] A[employer] MEDICARE AETNA MEDICARE Advance Directives For more information, please contact: [phone] Documents on File Type Date Recorded Patient Heel Reducer Expl anation ADVANCE DIRECTIVE 01/28/2020 5:40 AM [...] [facility] Alternate Health Care Agent Care Teams Presiding Judge Relationship Specialty Start Date End Date Shon Willis MD [address] [place] [address] PCP - General Internal Medicine 10/23/18 Govind Navarro MD [address] [place] [address] Medical Oncologist/Railroad Firer Medical Oncology 02/09/20 Sher Xiong MD PhD [address] [place] [address] Consulting Physician Radiation Oncology 02/09/20 Russ Rand MD [address] [place] [address] Consulting Physician Otolaryngology 02/09/20 Aamir Cox MD [address] [place] [address] Radiation Oncology 03/13/20 Abdulkadir Santos MD [address] [place] [address] Medical Oncologist/Railroad Firer Medical Oncology 11/17/20 Leon Arroyo MD [address] [facility] [address] [place] [address] Consulting Physician Internal Medicine 03/31/21 Chidi Duke MD [address] [place] [address] Consulting Physician Internal Medicine 04/16/21
--- OUTSIDE RECORDS SUMMARY | 2024-07-24 16:05 | XMS_ITS | Encounter Summary ---
Author Organization [facility] Address [address] [place] [address] Phone Care Team Providers Care Kosher Butcher Name Role Phone Shon Willis MD Primary Care Provider [phone] Govind Navarro MD Unavailable [phone] Sher Xiong MD PhD Unavailable [phone] Russ Rand MD Unavailable Deric Ingram MD Unavailable [phone] Aamir Cox MD Unavailable Jonelle Fair NP Unavailable [phone] Andres Arreola MD Unavailable [phone] Dariela Carlin NP Unavailable Abdulkadir Santos MD Unavailable Leon Arroyo MD Unavailable [phone] Chidi Duke MD Unavailable Arely Hartman MD [...] on file Legal Sex Male 1:36 AM CHIEF CLERK Gender Identity Male 03/05/2020 2:02 PM CHIEF CLERK Sexual Orientation Straight 07/09/2018 9: 09 PM [...] COVID: Suspected 04/05/2021 04/05/2021 04/05/2021 7:00 PM CHIEF CLERK documented as of this encounter Care Teams Kosher Butcher Relationship Specialty Start Date End Date Shon Willis MD [address] [place] [address] PCP - General Internal Medicine 10/23/18 Govind Navarro MD [address] [place] [address] Medical Oncologist/Hematologis t Medical Oncology 02/09/20 Sher Xiong MD PhD [address] [place] [address] Consulting Physician Radiation Oncology 02/09/20 Russ Rand MD [address] [place] [address] Consulting Physician Otolaryngology 02/09/20 Deric Ingram MD [address] [place] [address] Consulting Physician Hematology and Oncology 03/11/20 03/29/21 Aamir Cox MD [address] [facility] [address] [place] [address] Radiation Oncology 03/13/20 Jonelle Fair NP [address] [place] [address] Nurse Practitioner Medical Oncology 03/16/20 03/25/20 Andres Arreola MD [address] [place] [address] Consulting Physician Radiation Oncology 03/16/20 Dariela Carlin NP [address] [place] [address] Nurse Practitioner Medical Oncology 03/28/20 05/18/20 Abdulkadir Santos MD [address] [facility] [address] [place] [address] Medical Oncologist/Hematologis t Medical Oncology 11/17/20 Leon Arroyo MD [address] [place] [address] Consulting Physician Internal Medicine 03/31/21 Chidi Duke MD [address] [place] [address] Consulting Physician Internal Medicine 04/16/21 Arely Hartman MD [address] [place] [address] Consulting Physician Cardiovascular Disease 04/16/21 documented as of this encounter
--- OUTSIDE RECORDS SUMMARY | 2024-07-24 16:05 | XMS_ITS | Encounter Summary ---
Author Organization [facility] Address [address] [place] [address] Phone Care Team Providers Care Psychopaedic Nurse Name Role Phone Shon Willis MD Primary Care Provider [phone] Govind Navarro MD Unavailable Sher Xiong MD PhD Unavailable [phone] Russ Rand MD Unavailable Deric Ingram MD Unavailable Aamir Cox MD Unavailable [phone] Abdulkadir Santos MD Unavailable [phone] Leon Arroyo MD Unavailable Chidi Duke MD [...] on file Legal Sex Male 1:36 AM ALUM OPERATOR Gender Identity Male 03/05/2020 2:02 PM ALUM OPERATOR Sexual Orientation Straight 07/09/2018 9: 09 PM [...] COVID: Suspected 04/05/2021 04/05/2021 04/05/2021 7:00 PM ALUM OPERATOR documented as of this encounter Care Teams Psychopaedic Nurse Relationship Specialty Start Date End Date Shon Willis MD [address] [facility] [address] [place] [id number] PCP - General Internal Medicine 10/23/18 Govind Navarro MD [address] [place] [address] Medical Oncologist/Hematologis t Medical Oncology 02/09/20 Sher Xiong MD PhD [address] [place] [address] Consulting Physician Radiation Oncology 02/09/20 Russ Rand MD [address] [place] [address] Consulting Physician Otolaryngology 02/09/20 Deric Ingram MD [address] [place] [address] Consulting Physician Hematology and Oncology 03/11/20 03/29/21 Aamir Cox MD [address] [facility] [address] [place] [address] Radiation Oncology 03/13/20 Abdulkadir Santos MD [address] [facility] [address] [place] [address] Medical Oncologist/Hematologis t Medical Oncology 11/17/20 Leon Arroyo MD [address] [place] [address] Consulting Physician Internal Medicine 03/31/21 Chidi Duke MD [address] [place] [address] Consulting Physician Internal Medicine 04/16/21 Arely Hartman MD [address] [place] [address] Consulting Physician Cardiovascular Disease 04/16/21 documented as of this encounter
--- OUTSIDE RECORDS SUMMARY | 2024-07-24 16:05 | XMS_ITS | Clinical Summary ---
Author Organization [facility] [employer] Address [address] [facility] [place] [address] Care Team Providers Care Sewage Plant Supervisor Name Role Phone Shon Willis MD Primary Care Provider [phone] Source Comments [facility] [employer],non-owned Affiliates and Associated Physician Practices is amultiple site organization consisting of ambulatory clinics and hospital sitesin [place], [place] and [place]. This disclosure is being madepursuant to the Care Everywhere program and may not contain all information available regarding this patient. Last updated 17.[facility] [employer] Allergies No known active allergies Medications * Be aware that medications may not be up to date on this document. Alwaysverify current medications with the patient. amLODIPine (NORVASC) 5 MG tablet Take 5 mg by mouth once daily 0 Active fluticasone propionate (FLONASE) 50 MCG/ACT nasal spray [place] 2 sprays into each nostril once daily [...] mouth 2 times daily Active nystatin (MYCOSTATIN) 845990 UNIT/GM ointment Apply a thin amount three [...] on file Legal Sex Male 6:37 AM HOME FURNISHINGS SALES REPRESENTATIVE Gender Identity Not on file Sexual Orientation Not on file Last Filed Vital Signs Vital Sign Reading Time Taken Comments Blood Pressure 142/73 01/08/2020 9:46 AM HOME FURNISHINGS SALES REPRESENTATIVE Pulse 75 01/08/2020 9:46 AM HOME FURNISHINGS SALES REPRESENTATIVE Temperature 36.1 C (97 F) 12/04/2019 9:39 AM CDT Respiratory Rate - - Oxygen Saturation - - Inhaled Oxygen Concentration - - Weight 74.6 kg (164 lb 6.4 oz) 01/08/2020 9:46 A M HOME FURNISHINGS SALES REPRESENTATIVE Height 177.8 cm (5' 10) 01/08/2020 9:46 AM HOME FURNISHINGS SALES REPRESENTATIVE Body Mass Index 23.59 01/08/2020 9:46 AM HOME FURNISHINGS SALES REPRESENTATIVE Plan of Treatment Health Maintenance Due Date [...] patient's age to complete this topic Insurance [facility] MEDICARE ADV Care Teams Sewage Plant Supervisor Relationship Specialty Start Date End Date Shon Willis MD [address] [place] [address] PCP - General 11/18/19
--- OUTSIDE RECORDS SUMMARY | 2024-07-24 16:05 | XMS_ITS | Encounter Summary ---
Author Organization [facility] Address [address] [place] [address] Phone Care Team Providers Care Merchandise Planning Manager Name Role Phone Shon Willis MD Primary Care Provider [phone] Govind Navarro MD Unavailable [phone] Sher Xiong MD PhD Unavailable [phone] Russ Rand MD Unavailable [phone] Deric Ingram MD Unavailable Aamir Cox MD Unavailable Dariela Cariln NP Unavailable [phone] Abdulkadir Santos MD Unavailable Leon Arroyo MD [...] on file Legal Sex Male 1:36 AM SCREW MACHINE OPERATOR SWISS TYPE Gender Identity Male 03/05/2020 2:02 PM SCREW MACHINE OPERATOR SWISS TYPE Sexual Orientation Straight 07/09/2018 9: 09 PM [...] COVID: Suspected 04/05/2021 04/05/2021 04/05/2021 7:00 PM SCREW MACHINE OPERATOR SWISS TYPE documented as of this encounter Care Teams Merchandise Planning Manager Relationship Specialty Start Date End Date Shon Willis MD [address] [facility] [address] [facility] [address] [facility] [place] [id number] PCP - General Internal Medicine 10/23/18 Govind Navarro MD [address] [place] [address] Medical Oncologist/Hematologis t Medical Oncology 02/09/20 Sher Xiong MD PhD [address] [place] [address] Consulting Physician Radiation Oncology 02/09/20 Russ Rand MD [address] [place] [address] Consulting Physician Otolaryngology 02/09/20 Deric Ingram MD [address] [place] [address] Consulting Physician Hematology and Oncology 03/11/20 03/29/21 Aamir Cox MD [address] [facility] [address] [place] [address] Radiation Oncology 03/13/20 Dariela Carlin, JOSE [address] [place] [address] Nurse Practitioner Medical Oncology 03/28/20 05/18/20 Abdulkadir Santos MD [address] [facility] [address] [place] [address] Medical Oncologist/Hematologis t Medical Oncology 11/17/20 Leon Arroyo MD [address] [place] [address] Consulting Physician Internal Medicine 03/31/21 Chidi Duke MD 1 [place] [address] Consulting Physician Internal Medicine 04/16/21 Arely Hartman MD 1 [place] [address] Consulting Physician Cardiovascular Disease 04/16/21 documented as of this encounter
--- OUTSIDE RECORDS SUMMARY | 2024-07-24 16:05 | XMS_ITS | Encounter Summary ---
Author Organization [facility] Address [address] [place] [address] Phone Care Team Providers Care Animal Anatomy Teacher Name Role Phone Shon Willis MD Primary Care Provider [phone] Govind Navarro MD Unavailable [phone] Sher Xiong MD PhD Unavailable [phone] Russ Rand MD Unavailable [phone] Aamir Cox MD Unavailable [phone] Abdulkadir Santos MD Unavailable Leon Arroyo MD Unavailable [phone] Chidi Duke MD Unavailable Encounter Details Date [...] often do you attend chur ch or evangelical services? More than 4 times per year 04/07/2021 Do you belong to any clubs o r organizations such as hoahaoism groups, unions, fraternal or athletic groups, or [...] place to sleep or slept in a penitentiary (including now)? 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 Sexual Orientation Straight 07/09/2018 9: 09 [...] filedocumented in this encounter Care Teams Animal Anatomy Teacher Relationship Specialty Start Date End Date Shon Willis MD [address] [facility] [place] [id number] PCP - General Internal Medicine 10/23/18 Govind Navarro MD [address] [place] [address] Medical Oncologist/Clean Rice Grader And Reel Tender Medical Oncology 02/09/20 Sher Xiong MD PhD [address] [place] [address] Consulting Physician Radiation Oncology 02/09/20 Russ Rand MD [address] [place] [address] Consulting Physician Otolaryngology 02/09/20 Aamir Cox MD [address] [facility] [address] [place] [address] Radiation Oncology 03/13/20 [place] [address] [place] [address] [address] [place] [address] Medical Oncologist/Clean Rice Grader And Reel Tender Medical Oncology 11/17/20 Leon Arroyo MD [address] [facility] [address] [place], [place] [id number] Consulting Physician Internal Medicine 03/31/21 Chidi Duke MD 1 [place] [address] Consulting Physician Internal Medicine 04/16/21 documented as of this encounter
--- OUTSIDE RECORDS SUMMARY | 2024-07-24 16:05 | XMS_ITS | Clinical Summary ---
Author Organization [facility] Address [address] [place] [address] Care Team Providers Care Plane Captain Name Role Phone Unavailable Primary Care Provider Unavailabl e Social History Tobacco Use Types Packs/Day Years Used Date Smoking Tobacco: Never Assessed Sex and Gender Information Value Date Recorded Sex Assigned at Not on file Legal Sex Male 4:31 PM CDT Gender Identity Not on file Sexual Orientation Not on file Plan of Treatment Health Maintenance Due Date Last Done Comments DTaP, Tdap and Td Vaccines ( 1 - Tdap) 1957 Pneumococcal Vaccine: 50+ Ye ars (1 of 1 - PCV) 1988 Zoster Vaccines (1 of 2) 1988 RSV Immunization or 60+ Years (1 - 1-dose 75+ series) 2013 COVID-19 Vaccine ( - 2023-2 5 season) 2023 Meningococcal B Vaccine Aged Out No l onger eligible based on patient's age to complete this topic Meningococcal Vaccine Aged Out No rosalinda joe eligible based on patient's age to complete this topic RSV Immunizations Under 20 Months Aged Out No longer eligible based on patient's age to complete this topic
--- OUTSIDE RECORDS SUMMARY | 2024-07-24 16:05 | XMS_ITS | Clinical Summary ---
Author Organization [facility] Address [address] [place] [address] Care Team Providers Care Olericulturist Name Role Phone Unavailable Primary Care Provider Unavailabl e Immunizations Immunization Administration Dates Next Due Covid-19 Vaccine, Vector-nr, Rs-ad26, Pf, 0.5 Ml ([employer]) 12/02/2020 Social History Tobacco Use Types Packs/Day [...]
--- OUTSIDE RECORDS SUMMARY | 2024-07-24 16:05 | XMS_ITS | Continuity of Care Document ---
Author Organization [facility] Address [address] [place] [address] [address] [place] [address] Phone Care Team Providers Care Sustainable Products Marketing Manager Name Role Phone Boby Lockett Unavailable Unavailable Procedures Procedure Date Office/outpatient Visit, Est Eye Exam, New Patient No Script Refraction Advance Directives Directive Yes / No Effective Date File Name No Information Encounters Encounter Description Practice Location Reason(s) For Visit Diagnoses Date Provider Providers Copied on Encounter Office/outpat ient Visit, Est [facility], [id number] [place] [address] [address], [place], [place], [id number], [place] tel:[phone] [facility] No Information [phone]. [facility] , [address], [place], [place], [facility], [place]. tel:[phone] [facility], [address] [place] [address] [address], [place], [place], [id number], [place] tel:[phone] [facility] No Information [address]. [address] [facility] [address], [place], [place], [facility], [place]. tel:[phone] Family History Family Member Type Diagnosis Age At Onset No Information Payers Payer name Insurance type Covered democrat ID Authoriza tion(s) Medicare [facility] [id number] Social History Type Description Quantity Date Captured [...]
--- NOTE | 2024-07-24 17:27 | ECG_ITS ---
Test Date: 2024-07-24 17:35:56 Measurements Intervals [place] Rate: 84 P: 48 [place]: 133 QRS: 49 QRSD: 89 T: 34 QT: 368 QTc: 437 Interpretive Statements SINUS RHYTHM WITH FREQUENT SUPRAVENTRICULAR PREMATURE COMPLEXES DELAYED PRECORDIAL R/S TRANSITION ABNORMAL ECG Compared to ECG 07/24/2024 13:57:46 Atrial flutter no longer present Electronically Signed On 07-24-2024 21:03:55 CDT by Miles Galvan D.O.
[2024-07-24 17:36] LABS: Troponin I 0.102 ng/mL (0.000-0.034)
[2024-07-24] MEDS: SODIUM CHLORIDE 0.9% IV 100 ML 999 ML IV CONT (17:37)
[2024-07-24] MEDS: AZITHROMYCIN 500 MG/NS 250 ML 500 MG/250 ML BAG 250 MG IVPB (17:45)
--- NOTE | 2024-07-24 18:22 | P.HP_ITS ---
H&P: HPI History of Present Illness Date/Time: 07/24/24 18:22 Chief Complaint: Shortness of breath Narrative: 84-year-old male with past medical history of lung cancer, BPH, hypertension hyperlipidemia, hypothyroidism and COPD presents the hospital with shortness of breath. Patient states that he has had a cough for a while now. With increased sputum for the last 3 or 4 months. He states that he was doing a bowel prep over the weekend and was getting very short of breath when walking back and forth to the bathroom. He was afraid that due to the bowel prep and his cancer he was feeling ill. However he has not improved since then and presented to the hospital. In the ED his lab work shows leukocytosis at 18.9, anemia at 11.3, lactic acid 2.5 with repeat being 2.0, troponin 0.098, 0.102, 0.107, BNP of 7640, influenza a, B, RSV COVID negative. EKG shows sinus rhythm with frequent PVCs. Patient has atelectasis versus MRI on chest x-ray. Patient will be admitted for COPD exacerbation with pneumonia. Review of Systems Review of Systems: 12 systems were reviewed and are negativ e except for as per HPI. [facility] Past Medical History Medical History (Updated 07/24/24 @ 23:09 by Angelina Rosales, LONGWALL FOREMAN) Cancer of lung, throat, head, neck and tongue Occult blood in stools Low hemoglobin Chronic obstructive pulmonary disease, unspecified Arthritis Right groin pain Head and neck cancer Heart failure with preserved ejection fraction Encounter for Medicare annual wellness exam [place] (dyspnea on exertion) Lateral epicondylitis of right elbow BMI 21.0-21.9, adult Right leg pain Hypothyroidism (acquired) Dyspnea Injury of lip Vitamin D deficiency Borderline abnormal TFTs Palpitations Peripheral neuropathy Depression PAC (premature atrial contraction) SVT (supraventricular tachycardia) Ectopic beats Dry mouth BMI 23.0-23.9, adult Follow up BMI 22.0-22.9, adult Constipation Urinary retention BMI 24.0-24.9, adult Squamous cell cancer of tongue Metastatic lung cancer (metastasis from lung to other site) Anxiety BMI 26.0-26.9,adult Dysphagia Cellulitis Thrush Odynophagia Chronic sore throat Encounter for routine adult health examination with abnormal findings BMI 27.0-27.9,adult Essential (primary) hypertension History of tobacco use Hx of cancer of lung Malignant neoplasm of hilus of lung Pulmonary emphysema Insomnia Pedal edema Hyperlipidemia Benign essential hypertension Encounter for routine adult health examination without abnormal findings On residential drug therapy BPH (benign prostatic hyperplasia) Surgical History Surgical History History of lobectomy of lung 2007 removal of upper lobe left lung Family History Family History Sibling Family history of allergic disorder Father Family history of emphysema Family history of chronic obstructive pulmonary disease Mother Family history of emphysema, Onset Age: 89 Family history of malignant neoplasm of breast in first degree relative Family history of malignant neoplasm of breast Social History Social History Smoking packs per day: 1.5 Smoking cigarettes per day: 30.0 Years smoked: 20 Smoking pack-years: 30.00 Smoking status: Former smoker Tobacco type: cigarettes Second hand tobacco smoke exposure: No Smoking end date: 07/08/07 Additional smoking assessment comments: quit 2007 Alcohol intake: former Alcohol use details: None since 1995 Substance use: never Substance use type: does not use Do You Feel Safe in your Home?: Yes Lack of Transportation: No Lack of Food: Never True Current Housing: I Have Housing Concerned About Future Housing: No Difficulty Paying Gas/Electric Bills: No Difficulty Paying for Meds: No Currently Unemployed: No Education: Master's Degree or Higher Difficulty w/ Childcare or Family Care: No Living arrangements: with family Gender identity (if verbalized by the patient): Male Spiritual care concerns: Yes Agree to blood products: Yes Meds Home Medications and Allergies Home Medications ?Medication ?Instructions ?Recorded ?Confirmed ?Type lidocaine-prilocaine 2.5 %-2.5 % 1 applic topical ONCE PRN for 01/09/19 07/24/24 History topical cream ramona cath during chemo tamsulosin 0.4 mg capsule 0.4 mg PO DAILY 01/23/19 07/24/24 History finasteride 5 mg tablet 5 mg PO DAILY 05/27/20 07/24/24 History gabapentin 100 mg capsule 100 mg PO Q12H 07/01/20 07/24/24 History dexamethasone 4 mg tablet 8 mg PO DAILY PRN chemo 10/14/20 07/24/24 History Eliquis 5 mg PO BID 04/04/21 07/24/24 History cholecalciferol (vitamin D3) 50 50 mcg PO DAILY 04/05/22 07/24/24 History mcg (2,000 unit) capsule dapagliflozin propanediol 10 mg 10 mg PO DAILY 07/24/23 07/24/24 History tablet (Farxiga) spironolactone 25 mg tablet 25 mg PO .QOD 09/26/23 07/24/24 History Nebulizer Machine #1 device 12/20/23 07/24/24 Rx furosemide 20 mg tablet 10 mg (1/2 x 20 mg) PO QAM #90 tabs 01/08/24 07/24/24 Rx albuterol sulfate 90 mcg/actuation See Rx Instructions .Route 01/11/24 07/24/24 Rx aerosol inhaler .COMPLEX #51 grams metoprolol succinate 25 mg 12.5 mg PO DAILY 02/06/24 07/24/24 History tablet,extended release 24 hr pravastatin 40 mg tablet See Rx Instructions .Route 03/08/24 07/24/24 Rx .COMPLEX #90 tabs albuterol sulfate 2.5 mg/3 mL 2.5 mg (3 mL) inhalation Q4-6H PRN 04/22/24 07/24/24 Rx (0.083 %) solution for nebulization shortness of breath or wheezing #90 mL fluticasone fur. 100 mcg-umeclid See Rx Instructions .Route 07/15/24 07/24/24 Rx 62.5 mcg-vilant 25 mcg .COMPLEX #180 grams inhalat.powder (Trelegy Ellipta) cyanocobalamin (vitamin B-12) 1,000 mcg PO DAILY 07/16/24 07/24/24 History 1,000 mcg tablet (Vitamin B-12) folic acid 400 mcg tablet 400 mcg PO DAILY 07/16/24 07/24/24 History levothyroxine 88 mcg tablet 44 mcg PO DAILY 07/16/24 07/24/24 History (Synthroid) acetaminophen 325 mg tablet 325 mg PO Q6H PRN pain 07/18/24 07/24/24 History (Tactinal) dutasteride 0.5 mg capsule 0.5 mg PO .daily 07/18/24 07/24/24 History ferrous sulfate 325 mg (65 mg 325 mg PO BID 07/23/24 07/24/24 History iron) tablet,delayed release Allergies Allergy/AdvReac Type Severity Reaction Status Date / Time No Known Allergies Allergy Verified 07/18/24 13:49 Vital Signs Vital Signs - 24 hr 07/24/24 14:01 07/24/24 14:05 07/24/24 14:30 Temperature 97.8 F Pulse Rate 145 H 145 H Respiratory Rate 20 Blood Pressure 99/72 L Pulse Oximetry 88 L 98 Oxygen Delivery Room Air Nasal Cannula Oxygen Flow Rate 2 07/24/24 14:30 07/24/24 14:31 07/24/24 15:19 Temperature Pulse Rate 141 H 146 H Respiratory Rate 21 H 24 H Blood Pressure 134/76 101/85 Pulse Oximetry 98 98 78 L Oxygen Delivery Nasal Cannula Oxygen Flow Rate 2 07/24/24 15:31 07/24/24 15:45 07/24/24 15:57 Temperature Pulse Rate 137 H 133 H 134 H Respiratory Rate 26 H 24 H 28 H Blood Pressure 106/51 L 97/67 L 125/44 L Pulse Oximetry 85 L 80 L Oxygen Delivery Oxygen Flow Rate 07/24/24 16:01 07/24/24 16:16 07/24/24 17:43 Temperature Pulse Rate 133 H 129 H 82 Respiratory Rate 24 H 20 19 Blood Pressure 105/64 116/76 121/65 Pulse Oximetry 92 Oxygen Delivery Oxygen Flow Rate Exam Narrative: General: well appearing, appears stated age. HEENT: normocephalic, atraumatic. Mucous membranes moist. EOMI, PERRLA, bilateral sclera anicteric, no conjunctival injection. Neck supple without JVD, lymphadenopathy, or bruit. Respiratory: Diminished lung sounds with productive cough Cardiovascular: Regular rate and rhythm, normal S1-S2 upon ascultation. No murmurs, rubs, or clicks. PMI is nondisplaced, capillary refill less than 3 second. Abdomen: Soft, round, no pulsatile masses, nondistended and nontender. No rebound, no guarding. No CVA tenderness, no hepatosplenomegaly. Bowel sounds present to all four quadrants. No high pitch or tinkling sounds, resonant to percussion. Extremities: No cyanosis, clubbing, or edema present. Pulses are palpable 2/2. Active ROM to all four extremities. Neuro: Alert and orientated x 4. PERRLA. Cranial nerves 2-12 intact without focal deficit. Skin: Warm, dry, and intact, without rash, erythema, or lesion. Psych: pleasant, cooperative, normal speech, normal affect, no hallucinations, no dysarthia H&P: Results Labs Labs: Short CBC 07/24/24 Range/Units 14:14 WBC 18.9 H (4.5-10.0) K/mm3 Hgb 11.3 L (14.0-18.0) g/dL Hct 40.1 L (42.0-52.0) % Plt Count 261 (150-375) k/mm3 BMP 07/24/24 14:14 Sodium 137 Potassium 4.6 Chloride 106 Carbon Dioxide 22 BUN 25 H Creatinine 1.58 H Glucose 73 Calcium 9.4 Cardiac Enzymes 07/24/24 07/24/24 Range/Units 14:14 17:04 Troponin I 0.098 H* 0.102 H* (0.000-0.034) ng/mL Liver Function 07/24/24 Range/Units 14:14 Total Bilirubin 0.9 (0.2-1.3) mg/dL AST 34 (17-59) U/L ALT 24 (6-50) U/L Alkaline Phosphatase 49 (38-126) U/L Albumin 4.1 (3.5-5.1) g/dL Assessment and Plan Assessment and plan (1) COPD exacerbation: Code(s): J44.1 - Chronic obstructive pulmonary disease with (acute) exacerbation Status: Acute Assessment and Plan: Continue azithromycin Rocephin DuoNebs q.6 Solu-Medrol x1 followed by prednisone Guaifenesin incentive spirometer (2) Heart failure with preserved ejection fraction: Qualifiers: Heart failure chronicity: unspecified Qualified Code(s): I50.30 - Unspecified diastolic (congestive) heart failure Code(s): I50.30 - Unspecified diastolic (congestive) heart failure Status: Acute Assessment and Plan: Patient given 3 L IV fluids and emergency room for elective acidosis, currently euvolemic Restart diuretics in a.m. Monitor for fluid overload (3) Hyperlipidemia: Qualifiers: Hyperlipidemia type: mixed hyperlipidemia Qualified Code(s): E78.2 - Mixed hyperlipidemia Code(s): E78.5 - Hyperlipidemia, unspecified Status: Acute Assessment and Plan: Restart home med (4) Hypothyroidism (acquired): Code(s): E03.9 - Hypothyroidism, unspecified Status: Acute Assessment and Plan: Restart home meds (5) BPH (benign prostatic hyperplasia): Qualifiers: Lower urinary tract symptom presence: symptoms present Lower urinary tract symptom detail: unspecified Qualified Code(s): N40.1 - Benign prostatic hyperplasia with lower urinary tract symptoms Code(s): N40.0 - Benign prostatic hyperplasia without lower urinary tract symptoms Status: Acute Assessment and Plan: Continue home meds Quality VTE Prophylaxis VTE prophylaxis: mechanical ordered and pharmacologic ordered Hospitalist MIPS Advance Care Plan I have confirmed that the patient's Advanced Care Plan is present, code status is documented, or surrogate decision maker is listed in patient medical record.: Yes Medication Reconciliation I have utilized all available resources to obtain, update and review the patients current medications (includes all prescriptions, OTC, herbals, cannabis, and nutritional supplements).: Yes
[2024-07-24] MEDS: SODIUM CHLORIDE 0.9% IV 1,000 ML 125 ML IV CONT (18:43)
--- NOTE | 2024-07-24 19:01 | PC.NURSE ---
Patient arrived to IMU. Telemetry placed.
[2024-07-24] MEDS: GABAPENTIN 100 MG CAPSULE PO (20:56)
[2024-07-24 21:11] LABS: Troponin I 0.107 ng/mL (0.000-0.034)
[2024-07-24 22:46] LABS: Influenza A QL RT-PCR Negative (Negative); Influenza B QL RT-PCR Negative (Negative); RSV RNA, RT-PCR Negative (Negative); SARS-CoV-2 RNA PCR Negative (Negative)
[2024-07-25] VITALS (32 sets, daily range): BP systolic 122–149; BP diastolic 38–85; PULSE 71–225; RESP 16–21; TEMP 36.7–37.1; O2SAT 94–100
[2024-07-25] MEDS: IPRATROPIUM 0.5 MG/ALBUTEROL SULFATE 2.5 MG AMPUL.NEB 3 ML INHALATION ×3 (02:50→19:52)
[2024-07-25 04:18] LABS: Hematocrit 31.3 % (42.0-52.0); Hemoglobin 8.7 g/dL (14.0-18.0); Immature Granulocyte Percent A 0.4 % (0-0.5); Immature Platelet Fraction Pct 4.1 % (0.9-11.2); Lymphocytes Absolute Auto 0.73 K/mm3 (0.9-3.2); Mean Corpuscular HGB Conc 27.8 g/dl (32-36); Mean Corpuscular Hemoglobin 19.0 pg (26-34); Mean Corpuscular Volume 68.3 fl (80-100); Nucleated Red Blood Cells Absolute Auto 0.000 K/mm3 (0.0-0.012); Nucleated Red Blood Cells Perc 0.0 % (0.0-0.2); Platelet Count Result 211 k/mm3 (150-375); Red Blood Count 4.58 M/mm3 (4.6-6.20); White Blood Count 13.0 K/mm3 (4.5-10.0)
[2024-07-25 04:36] LABS: Anion Gap 7 mmol/L (4-12); Blood Urea Nitrogen 22 mg/dL (9-20); Calcium 8.2 mg/dL (8.4-10.2); Carbon Dioxide 19 mmol/L (22-30); Chloride 112 mmol/L (98-107); Estimated CRCL calculation 35 ml/min; Estimated Glomerular Filt Rate 53; Glucose 51 mg/dL (65-110); Potassium 4.5 mmol/L (3.4-5.0); Sodium 138 mmol/L (137-145)
[2024-07-25 04:54] LABS: Anisocytosis 2+; Hypochromasia 1+; Microcytosis 2+ (NORMAL); Ovalocytes 1+; Schistocytes Rare
[2024-07-25] MEDS: DEXTROSE 50% 25 GM/50 ML SYRINGE IV PUSH (04:57)
[2024-07-25] MEDS: LEVOTHYROXINE SODIUM PO (05:01)
[2024-07-25] MEDS: PRAVASTATIN SODIUM 20 MG TABLET 40 MG BY MOUTH (08:51)
[2024-07-25] MEDS: guaiFENesin 12 HR 600 MG TABCR 1200 MG PO ×2 (08:52→20:34)
[2024-07-25] MEDS: DUTASTERIDE 0.5 MG CAPSULE PO (08:53)
[2024-07-25] MEDS: GABAPENTIN 100 MG CAPSULE PO ×2 (08:53→18:06)
[2024-07-25] MEDS: SPIRONOLACTONE 25 MG TABLET PO (08:53)
[2024-07-25] MEDS: TAMSULOSIN HCL 0.4 MG CAPSULE PO (08:53)
[2024-07-25] MEDS: EMPAGLIFLOZIN 25 MG TABLET BY MOUTH (09:15)
[2024-07-25] MEDS: FUROSEMIDE 10 MG TABLET PO (09:15)
[2024-07-25] MEDS: FINASTERIDE 5 MG TABLET PO (09:15)
--- NOTE | 2024-07-25 12:25 | P.PNIM_ITS ---
Progress Note: A&P Assessment and Plan (1) COPD exacerbation: Code(s): J44.1 - Chronic obstructive pulmonary disease with (acute) exacerbation Status: Acute Assessment and Plan: Continue azithromycin Rocephin DuoNebs q.6 Solu-Medrol x1 followed by prednisone Guaifenesin incentive spirometer Chest x-ray with chronic interstitial change with left-sided volume loss unchanged from prior without focal infiltrate or effusion. (2) Heart failure with preserved ejection fraction: Qualifiers: Heart failure chronicity: unspecified Qualified Code(s): I50.30 - Unspecified diastolic (congestive) heart failure Code(s): I50.30 - Unspecified diastolic (congestive) heart failure Status: Acute Assessment and Plan: Patient given 3 L IV fluids and emergency room for elective acidosis, currently euvolemic Diuretics restarted Monitor for fluid overload (3) Hyperlipidemia: Qualifiers: Hyperlipidemia type: mixed hyperlipidemia Qualified Code(s): E78.2 - Mixed hyperlipidemia Code(s): E78.5 - Hyperlipidemia, unspecified Status: Acute Assessment and Plan: Home medication (4) Hypothyroidism (acquired): Code(s): E03.9 - Hypothyroidism, unspecified Status: Acute Assessment and Plan: Home medications (5) BPH (benign prostatic hyperplasia): Qualifiers: Lower urinary tract symptom presence: symptoms present Lower urinary tract symptom detail: unspecified Qualified Code(s): N40.1 - Benign prostatic hyperplasia with lower urinary tract symptoms Code(s): N40.0 - Benign prostatic hyperplasia without lower urinary tract symptoms Status: Acute Assessment and Plan: Continue home meds Plan Hypoxic respiratory failure: Needing oxygen supplementation. Elevated troponin flat trend. Likely related to hypoxia. Will check echocardiogram DVT prophylaxis on apixaban Atrial flutter with rapid ventricular rate ulcerated 146 on arrival. Back to sinus rhythm already. Anemia: Recent EGD and colonoscopy negative Hypoglycemia: Not on any hypoglycemic agent. Will continue to monitor Sepsis with white cell count tachycardia lactic acidosis. Received IV fluid resuscitation. Follow blood culture. Subjective Date/time seen: 07/25/24 12:25 Interval history: No overnight events. Breathing is better. He is scheduled to have a surgery done for his hernia today. Cough is chronic. On 4 L oxygen current Review of Systems Review of Systems: 12 systems were reviewed and are negativ e except for as per HPI. Exam Narrative: General: well appearing, appears stated age. 88 acute distress HEENT: normocephalic, atraumatic. Mucous membranes moist. Respiratory: Diminished lung sounds bilaterally no respiratory distress Cardiovascular: Regular rate and rhythm, normal S1-S2 upon ascultation. Abdomen: Soft, round, no pulsatile masses, nondistended and nontender. No rebound, no guarding. Extremities: No cyanosis, clubbing, or edema present. Pulses are palpable 2/2. Active ROM to all four extremities. Neuro: Alert and orientated x 4. PERRLA. Cranial nerves 2-12 intact without focal deficit. Skin: Warm, dry, and intact, without rash, erythema, or lesion. Psych: pleasant, cooperative, normal speech, normal affect, no hallucinations, no dysarthia Objective Data Vital Signs Vital Signs: Vital Signs - 24 hr 07/24/24 14:01 07/24/24 14:05 07/24/24 14:30 Temperature 97.8 F Pulse Rate 145 H 145 H Respiratory Rate 20 Blood Pressure 99/72 L Pulse Oximetry 88 L 98 Oxygen Delivery Room Air Nasal Cannula Oxygen Flow Rate 2 Fraction of Inspired Oxygen 07/24/24 14:30 07/24/24 14:31 07/24/24 15:19 Temperature Pulse Rate 141 H 146 H Respiratory Rate 21 H 24 H Blood Pressure 134/76 101/85 Pulse Oximetry 98 98 78 L Oxygen Delivery Nasal Cannula Oxygen Flow Rate 2 Fraction of Inspired Oxygen 07/24/24 15:31 07/24/24 15:45 07/24/24 15:57 Temperature Pulse Rate 137 H 133 H 134 H Respiratory Rate 26 H 24 H 28 H Blood Pressure 106/51 L 97/67 L 125/44 L Pulse Oximetry 85 L 80 L Oxygen Delivery Oxygen Flow Rate Fraction of Inspired Oxygen 07/24/24 16:01 07/24/24 16:16 07/24/24 17:43 Temperature Pulse Rate 133 H 129 H 82 Respiratory Rate 24 H 20 19 Blood Pressure 105/64 116/76 121/65 Pulse Oximetry 92 Oxygen Delivery Oxygen Flow Rate Fraction of Inspired Oxygen 07/24/24 18:50 07/24/24 19:53 07/24/24 20:00 Temperature 98.3 F 98.4 F Pulse Rate 89 85 86 Respiratory Rate 18 Blood Pressure 148/87 H 105/49 L Pulse Oximetry 95 100 Oxygen Delivery Oxygen Flow Rate Fraction of Inspired Oxygen 07/24/24 21:00 07/24/24 21:49 07/24/24 22:00 Temperature Pulse Rate 85 84 Respiratory Rate 18 Blood Pressure Pulse Oximetry 100 98 Oxygen Delivery Nasal Cannula Nasal Cannula Oxygen Flow Rate 4 4 Fraction of Inspired Oxygen 07/25/24 00:00 07/25/24 00:00 07/25/24 00:21 Temperature 98.7 F Pulse Rate 83 81 77 Respiratory Rate 18 18 Blood Pressure 122/54 L Pulse Oximetry 98 Oxygen Delivery Nasal Cannula Oxygen Flow Rate 4 Fraction of Inspired Oxygen 07/25/24 01:58 07/25/24 02:54 07/25/24 02:58 Temperature Pulse Rate 71 73 Respiratory Rate 18 Blood Pressure Pulse Oximetry 98 Oxygen Delivery Nasal Cannula Oxygen Flow Rate 3 Fraction of Inspired Oxygen 07/25/24 03:08 07/25/24 04:00 07/25/24 04:00 Temperature 98.4 F Pulse Rate 76 73 78 Respiratory Rate 18 18 16 Blood Pressure 130/38 L Pulse Oximetry 98 99 Oxygen Delivery Nasal Cannula Oxygen Flow Rate 4 Fraction of Inspired Oxygen 07/25/24 04:00 07/25/24 06:00 07/25/24 07:37 Temperature 98.1 F Pulse Rate 74 76 74 Respiratory Rate 20 Blood Pressure 136/63 Pulse Oximetry 100 Oxygen Delivery Oxygen Flow Rate Fraction of Inspired Oxygen 07/25/24 08:00 07/25/24 08:00 07/25/24 10:00 Temperature Pulse Rate 83 83 Respiratory Rate Blood Pressure Pulse Oximetry 99 Oxygen Delivery Nasal Cannula Oxygen Flow Rate 4 Fraction of Inspired Oxygen 99 07/25/24 11:57 07/25/24 12:00 07/25/24 12:00 Temperature 98.1 F Pulse Rate 72 85 Respiratory Rate 20 Blood Pressure 149/66 H Pulse Oximetry 100 99 Oxygen Delivery Nasal Cannula Oxygen Flow Rate 2 Fraction of Inspired Oxygen Intake/Output Intake/Output: Intake & Output 07/22/24 07/23/24 07/24/24 07/25/24 23:59 23:59 23:59 23:59 Intake Total 2150 470 Output Total 50 300 Balance 2100 170 Meds/Results Medications: Active Medications Generic Name Dose Route Start Last Admin Trade Name Freq PRN Reason Stop Dose Admin Acetaminophen 650 mg 07/24/24 15:42 Acetaminophen 325 Mg Tablet PO Q4H PRN Mild Pain (1-3) or Fever Hydrocodone Bitart/Acetaminophen 1 tab 07/24/24 15:42 Hydrocodone/Acetaminophen (*Crx) 5-325 Mg Tablet PO Q4H PRN Pain Rated 4-6 Albuterol/Ipratropium 3 ml 07/25/24 02:00 07/25/24 09:38 Ipratropium 0.5 Mg/Albuterol Sulfate 2.5 Mg Ampul.Neb 3 Ml INHALATION Not Given Q6HRT NATASHA Apixaban 5 mg 07/25/24 09:00 07/25/24 12:06 Apixaban 5 Mg Tablet BY MOUTH Not Given BID NATASHA Dextrose 12.5 gm 07/25/24 04:38 07/25/24 04:57 Dextrose 50% 25 Gm/50 Ml Syringe IV PUSH 12.5 gm PRN PRN Administration Hypoglycemia Protocol Docusate Sodium 100 mg 07/25/24 09:00 07/25/24 09:00 Docusate Sodium 100 Mg Capsule PO Not Given DAILY NATASHA Dutasteride 0.5 mg 07/25/24 09:00 07/25/24 08:53 Dutasteride 0.5 Mg Capsule PO 0.5 mg DAILY NATASHA Administration Empagliflozin 25 mg 07/25/24 09:00 07/25/24 09:15 Empagliflozin 25 Mg Tablet BY MOUTH 25 mg DAILY NATASHA Administration Finasteride 5 mg 07/25/24 09:00 07/25/24 09:15 Finasteride 5 Mg Tablet PO 5 mg DAILY NATASHA Administration Fluticasone/Umeclidinium/Vilanterol 1 puff 07/25/24 08:00 Fluticasone/Umeclidin/Vilanter 100-62.5-25 Mcg Ellipta INHALATION DAILYRT NATASHA Furosemide 10 mg 07/25/24 09:00 07/25/24 09:15 Furosemide 10 Mg Tablet PO 10 mg QAM NATASHA Administration Gabapentin 100 mg 07/24/24 19:00 07/25/24 08:53 Gabapentin 100 Mg Capsule PO 100 mg BID NATASHA Administration Glucagon 1 mg 07/25/24 04:38 Glucagon For Inj 1 Mg Vial IM PRN PRN Hypoglycemia Protocol Glucose 15 gm 07/25/24 04:38 Glucose Oral Gel 15 Gm Of Glucse In 37.5 Gm Tube PO PRN PRN Hypoglycemia Protocol Guaifenesin 1,200 mg 07/25/24 09:00 07/25/24 08:52 Guaifenesin 12 Hr 600 Mg Tabcr PO 1,200 mg Q12HR NATASHA Administration Guaifenesin/Dextromethorphan 10 ml 07/24/24 21:00 07/25/24 09:01 Guaifenesin/Dextromethorphan 10 Ml Udc PO 10 ml Q4HR NATASHA Administration Ceftriaxone Sodium 1 gm in 50 mls @ 100 mls/hr 07/25/24 18:00 Rocephin 1 Gm/Ns 50 Ml IVPB Q24H NATASHA Azithromycin 500 mg in 250 mls @ 250 mls/hr 07/25/24 18:00 Zithromax IVPB Q24H NATASHA Dextrose 1,000 mls @ 100 mls/hr 07/25/24 04:38 Dextrose 5% 1,000 Ml IVPB PRN PRN Hypoglycemia Protocol Levothyroxine Sodium 44 mcg 07/25/24 06:30 07/25/24 05:01 Levothyroxine Sodium 44 Mcg Tablet PO 44 mcg DAILY@0630 NATASHA Administration Metoprolol Succinate 12.5 mg 07/25/24 21:00 Metoprolol Succinate Ext Rel 12.5 Mg Tabcr PO QHS NATASHA Pravastatin Sodium 40 mg 07/25/24 09:00 07/25/24 08:51 Pravastatin Sodium 20 Mg Tablet BY MOUTH 40 mg DAILY NATASHA Administration Prednisone 40 mg 07/25/24 08:00 07/25/24 08:53 Prednisone 20 Mg Tablet PO 07/30/24 07:59 40 mg DAILY@0800 NATASHA Administration Promethazine HCl 12.5 mg 07/24/24 15:42 Promethazine Hcl 25 Mg/Ml Ampul IV PUSH Q6H PRN Nausea Spironolactone 25 mg 07/25/24 09:00 07/25/24 08:53 Spironolactone 25 Mg Tablet PO 25 mg Q48H NATASHA Administration Tamsulosin HCl 0.4 mg 07/25/24 09:00 07/25/24 08:53 Tamsulosin Hcl 0.4 Mg Capsule PO 0.4 mg DAILY NATASHA Administration Radiology Results: ITS Impressions Chest X-Ray 07/24/24 15:16 IMPRESSION: Chronic interstitial change with left-sided volume loss, without focal infiltrate or effusion. Labs Labs: Laboratory Results - last 24 hr 07/24/24 07/24/24 07/24/24 14:14 14:20 17:04 WBC 18.9 H RBC 5.98 Hgb 11.3 L Hct 40.1 L MCV 67.1 L MCH 18.9 L MCHC 28.2 L RDW 20.0 H Plt Count 261 MPV TNP Immature Gran % (Auto) 0.8 H Neut % (Auto) 86.8 H Lymph % (Auto) 2.9 L [place] % (Auto) 9.4 H Eos % (Auto) 0.0 Baso % (Auto) 0.1 L Lymph # (Auto) 0.54 L [place] # (Auto) 1.8 H Eos # (Auto) 0.0 Baso # (Auto) 0.0 Abs Immat Gran (auto) 0.16 H Absolute Neuts (auto) 16.4 H Absolute Nucleated RBC 0.000 Band Neutrophils % 0 Nucleated RBC % 0.0 Platelet Estimate Adequate % Immature Plt Fraction 4.9 Hypochromasia 1+ Anisocytosis 2+ Microcytosis 2+ Ovalocytes Schistocytes None seen PT 16.3 H INR 1.3 APTT 36.3 Sodium 137 Potassium 4.6 Chloride 106 Carbon Dioxide 22 Anion Gap 9 BUN 25 H Creatinine 1.58 H Estim Creat Clear Calc 29 Estimated GFR 42 L Glucose 73 POC Capillary Glucose Lactic Acid 2.5 H 2.0 Calcium 9.4 Total Bilirubin 0.9 AST 34 ALT 24 Alkaline Phosphatase 49 Troponin I 0.098 H* 0.102 H* NT-Pro-B Natriuret Pep 7640 H Total Protein 7.5 Albumin 4.1 Influenza A (RT-PCR) Influenza B (RT-PCR) RSV (RT-PCR) SARS-CoV-2 RNA (RT-PCR) 07/24/24 07/24/24 07/25/24 20:29 21:49 03:40 WBC 13.0 H RBC 4.58 L Hgb 8.7 L Hct 31.3 L MCV 68.3 L MCH 19.0 L MCHC 27.8 L RDW 19.1 H Plt Count 211 MPV 11.1 H Immature Gran % (Auto) 0.4 Neut % (Auto) 83.2 H Lymph % (Auto) 5.6 L [place] % (Auto) 10.6 H Eos % (Auto) 0.0 Baso % (Auto) 0.2 Lymph # (Auto) 0.73 L [place] # (Auto) 1.4 H Eos # (Auto) 0.0 Baso # (Auto) 0.0 Abs Immat Gran (auto) 0.05 H Absolute Neuts (auto) 10.9 H Absolute Nucleated RBC 0.000 Band Neutrophils % Not Reportable Nucleated RBC % 0.0 Platelet Estimate Adequate % Immature Plt Fraction 4.1 Hypochromasia 1+ Anisocytosis 2+ Microcytosis 2+ Ovalocytes 1+ Schistocytes Rare PT INR APTT Sodium 138 Potassium 4.5 Chloride 112 H Carbon Dioxide 19 L Anion Gap 7 BUN 22 H Creatinine 1.29 Estim Creat Clear Calc 35 Estimated GFR 53 L Glucose 51 L* POC Capillary Glucose Lactic Acid Calcium 8.2 L Total Bilirubin AST ALT Alkaline Phosphatase Troponin I 0.107 H* NT-Pro-B Natriuret Pep Total Protein Albumin Influenza A (RT-PCR) Negative Influenza B (RT-PCR) Negative RSV (RT-PCR) Negative SARS-CoV-2 RNA (RT-PCR) Negative 07/25/24 07/25/24 07/25/24 05:32 07:53 09:42 WBC RBC Hgb Hct MCV MCH MCHC RDW Plt Count MPV Immature Gran % (Auto) Neut % (Auto) Lymph % (Auto) [place] % (Auto) Eos % (Auto) Baso % (Auto) Lymph # (Auto) [place] # (Auto) Eos # (Auto) Baso # (Auto) Abs Immat Gran (auto) Absolute Neuts (auto) Absolute Nucleated RBC Band Neutrophils % Nucleated RBC % Platelet Estimate % Immature Plt Fraction Hypochromasia Anisocytosis Microcytosis Ovalocytes Schistocytes PT INR APTT Sodium Potassium Chloride Carbon Dioxide Anion Gap BUN Creatinine Estim Creat Clear Calc Estimated GFR Glucose POC Capillary Glucose 95 67 102 Lactic Acid Calcium Total Bilirubin AST ALT Alkaline Phosphatase Troponin I NT-Pro-B Natriuret Pep Total Protein Albumin Influenza A (RT-PCR) Influenza B (RT-PCR) RSV (RT-PCR) SARS-CoV-2 RNA (RT-PCR)
[2024-07-25] MEDS: FLUTICASONE/UMECLIDIN/VILANTER 100-62.5-25 MCG ELLIPTA 1 PUFF INHALATION (14:09)
--- NOTE | 2024-07-25 16:05 | PM.CNCAR ---
Assessment and Plan Assessment and plan (1) Acute on chronic heart failure with normal ejection fraction: Code(s): I50.33 - Acute on chronic diastolic (congestive) heart failure Status: Acute (2) Benign essential hypertension: Code(s): I10 - Essential (primary) hypertension Status: Acute (3) Hyperlipidemia: Qualifiers: Hyperlipidemia type: mixed hyperlipidemia Qualified Code(s): E78.2 - Mixed hyperlipidemia Code(s): E78.5 - Hyperlipidemia, unspecified Status: Acute Plan He problem list: Acute on chronic heart failure with preserved ejection fraction A flutter with RVR and now converted back to sinus rhythm Elevated troponin but flat without chest pain-most likely demand ischemia secondary to heart failure and tachycardia Hypertension Hyperlipidemia Acute COPD exacerbation Hypoxic respiratory failure secondary to COPD exacerbation Anemia with hemoglobin 8.7 Leukocytosis most likely secondary to COPD exacerbation Lung cancer Plan: Continue metoprolol, SGLT2 inhibitor, spironolactone Continue statin Continue Eliquis for anticoagulation for AFib Lasix 20 mg IV b.i.d. Check and replace electrolytes as needed to keep K greater than 4 and magnesium greater than 2 Check daily weights, ins and outs, renal function Trend troponin to peak EKG p.r.n. for any chest pain Obtain TTE Management of other medical problems per primary team Thank you for allowing us to participate in the care of this patient. Cardiology will continue to follow History of Present Illness History of Present Illness Consult date/time: 07/25/24 16:05 Reason For Visit: PNEUMONIA,HYPOXIA,ELEVATED TROP Narrative: 84-year-old male with past medical history HFpEF, hypertension, hyperlipidemia, COPD, arthritis, head and neck cancer, hypothyroidism, vitamin-D deficiency, depression, anxiety, lung cancer, BPH presents with chief complaints of shortness of breath. Patient states that he has some chronic shortness of breath which got acutely worse this week and he could not even walk to the bathroom without having to stop. He he states that he had bowel prep for colonoscopy on Monday which may have worsened his shortness of breath. Patient reports cough for a long time now. He has noticed increased due to over the last 3-4 months. He denies any chest pain, dizziness, lightheadedness, presyncope, syncope, palpitations, orthopnea, PND, recent weight gain, leg swelling, fever, chills, recent sick contacts, headache. Workup: Hemoglobin: 11.3 at presentation and 8.7 today WBC: 18.9 at presentation and 13 today Troponin: 0.098, 0.102, 0.107 BNP: 7640 EKG: A flutter with RVR EKG: sinus rhythm with frequent PACs, delayed precordial R/S transition Chest x-ray: Chronic interstitial change with left-sided volume loss, without focal infiltrate or effusion. Review of Systems Review of Systems: Complete review of systems was performed and negative other than those mentioned in the [facility] Past Medical History Medical History (Updated 07/25/24 @ 19:02 by Brittani Parisi MD) Cancer of lung, throat, head, neck and tongue Occult blood in stools Low hemoglobin Chronic obstructive pulmonary disease, unspecified Arthritis Right groin pain Head and neck cancer Heart failure with preserved ejection fraction Encounter for Medicare annual wellness exam [place]ASLEY (dyspnea on exertion) Lateral epicondylitis of right elbow BMI 21.0-21.9, adult Right leg pain Hypothyroidism (acquired) Dyspnea Injury of lip Vitamin D deficiency Borderline abnormal TFTs Palpitations Peripheral neuropathy Depression PAC (premature atrial contraction) SVT (supraventricular tachycardia) Ectopic beats Dry mouth BMI 23.0-23.9, adult Follow up BMI 22.0-22.9, adult Constipation Urinary retention BMI 24.0-24.9, adult Squamous cell cancer of tongue Metastatic lung cancer (metastasis from lung to other site) Anxiety BMI 26.0-26.9,adult Dysphagia Cellulitis Thrush Odynophagia Chronic sore throat Encounter for routine adult health examination with abnormal findings BMI 27.0-27.9,adult Essential (primary) hypertension History of tobacco use Hx of cancer of lung Malignant neoplasm of hilus of lung Pulmonary emphysema Insomnia Pedal edema Hyperlipidemia Benign essential hypertension Encounter for routine adult health examination without abnormal findings On shelter drug therapy BPH (benign prostatic hyperplasia) Surgical History Surgical History History of lobectomy of lung 2008 removal of upper lobe left lung Family History Family History Sibling Family history of allergic disorder Father Family history of emphysema Family history of chronic obstructive pulmonary disease Mother Family history of emphysema, Onset Age: 89 Family history of malignant neoplasm of breast in first degree relative Family history of malignant neoplasm of breast Social History Social History Smoking packs per day: 1.5 Smoking cigarettes per day: 30.0 Years smoked: 20 Smoking pack-years: 30.00 Smoking status: Former smoker Tobacco type: cigarettes Second hand tobacco smoke exposure: No Smoking end date: 07/08/07 Additional smoking assessment comments: quit 2007 Alcohol intake: former Alcohol use details: None since 1995 Substance use: never Substance use type: does not use Do You Feel Safe in your Home?: Yes Lack of Transportation: No Lack of Food: Never True Current Housing: I Have Housing Concerned About Future Housing: No Difficulty Paying Gas/Electric Bills: No Difficulty Paying for Meds: No Currently Unemployed: No Education: Master's Degree or Higher Difficulty w/ Childcare or Family Care: No Living arrangements: with family Gender identity (if verbalized by the patient): Male Spiritual care concerns: Yes Agree to blood products: Yes Meds Home Medications and Allergies Home Medications ?Medication ?Instructions ?Recorded ?Confirmed ?Type lidocaine-prilocaine 2.5 %-2.5 % 1 applic topical ONCE PRN for 01/09/19 07/24/24 History topical cream ramona cath during chemo tamsulosin 0.4 mg capsule 0.4 mg PO DAILY 01/23/19 07/24/24 History finasteride 5 mg tablet 5 mg PO DAILY 05/27/20 07/24/24 History gabapentin 100 mg capsule 100 mg PO Q12H 07/01/20 07/24/24 History dexamethasone 4 mg tablet 8 mg PO DAILY PRN chemo 10/14/20 07/24/24 History Eliquis 5 mg PO BID 04/04/21 07/24/24 History cholecalciferol (vitamin D3) 50 50 mcg PO DAILY 04/05/22 07/24/24 History mcg (2,000 unit) capsule dapagliflozin propanediol 10 mg 10 mg PO DAILY 07/24/23 07/24/24 History tablet (Farxiga) spironolactone 25 mg tablet 25 mg PO .QOD 09/26/23 07/24/24 History Nebulizer Machine #1 device 12/20/23 07/24/24 Rx furosemide 20 mg tablet 10 mg (1/2 x 20 mg) PO QAM #90 tabs 01/08/24 07/24/24 Rx albuterol sulfate 90 mcg/actuation See Rx Instructions .Route 01/11/24 07/24/24 Rx aerosol inhaler .COMPLEX #51 grams metoprolol succinate 25 mg 12.5 mg PO DAILY 02/06/24 07/24/24 History tablet,extended release 24 hr pravastatin 40 mg tablet See Rx Instructions .Route 03/08/24 07/24/24 Rx .COMPLEX #90 tabs albuterol sulfate 2.5 mg/3 mL 2.5 mg (3 mL) inhalation Q4-6H PRN 04/22/24 07/24/24 Rx (0.083 %) solution for nebulization shortness of breath or wheezing #90 mL fluticasone fur. 100 mcg-umeclid See Rx Instructions .Route 07/15/24 07/24/24 Rx 62.5 mcg-vilant 25 mcg .COMPLEX #180 grams inhalat.powder (Trelegy Ellipta) cyanocobalamin (vitamin B-12) 1,000 mcg PO DAILY 07/16/24 07/24/24 History 1,000 mcg tablet (Vitamin B-12) folic acid 400 mcg tablet 400 mcg PO DAILY 07/16/24 07/24/24 History levothyroxine 88 mcg tablet 44 mcg PO DAILY 07/16/24 07/24/24 History (Synthroid) acetaminophen 325 mg tablet 325 mg PO Q6H PRN pain 07/18/24 07/24/24 History (Tactinal) dutasteride 0.5 mg capsule 0.5 mg PO .daily 07/18/24 07/24/24 History ferrous sulfate 325 mg (65 mg 325 mg PO BID 07/23/24 07/24/24 History iron) tablet,delayed release Allergies Allergy/AdvReac Type Severity Reaction Status Date / Time No Known Allergies Allergy Verified 07/18/24 13:49 Vital Signs Vital Signs - 24 hr 07/24/24 16:16 07/24/24 17:43 07/24/24 18:50 Temperature 36.8 C Pulse Rate 129 H 82 89 Respiratory Rate 20 19 Blood Pressure 116/76 121/65 148/87 H Pulse Oximetry 92 95 Oxygen Delivery Oxygen Flow Rate Fraction of Inspired Oxygen 07/24/24 19:53 07/24/24 20:00 07/24/24 21:00 Temperature 36.9 C Pulse Rate 85 86 85 Respiratory Rate 18 18 Blood Pressure 105/49 L Pulse Oximetry 100 100 Oxygen Delivery Nasal Cannula Oxygen Flow Rate 4 Fraction of Inspired Oxygen 07/24/24 21:49 07/24/24 22:00 07/25/24 00:00 Temperature 37.1 C Pulse Rate 84 83 Respiratory Rate 18 Blood Pressure 122/54 L Pulse Oximetry 98 Oxygen Delivery Nasal Cannula Oxygen Flow Rate 4 Fraction of Inspired Oxygen 07/25/24 00:00 07/25/24 00:21 07/25/24 01:58 Temperature Pulse Rate 81 77 71 Respiratory Rate 18 Blood Pressure Pulse Oximetry 98 Oxygen Delivery Nasal Cannula Oxygen Flow Rate 4 Fraction of Inspired Oxygen 07/25/24 02:54 07/25/24 02:58 07/25/24 03:08 Temperature Pulse Rate 73 76 Respiratory Rate 18 18 Blood Pressure Pulse Oximetry 98 Oxygen Delivery Nasal Cannula Oxygen Flow Rate 3 Fraction of Inspired Oxygen 07/25/24 04:00 07/25/24 04:00 07/25/24 04:00 Temperature 36.9 C Pulse Rate 73 78 74 Respiratory Rate 18 16 Blood Pressure 130/38 L Pulse Oximetry 98 99 Oxygen Delivery Nasal Cannula Oxygen Flow Rate 4 Fraction of Inspired Oxygen 07/25/24 06:00 07/25/24 07:37 07/25/24 08:00 Temperature 36.7 C Pulse Rate 76 74 Respiratory Rate 20 Blood Pressure 136/63 Pulse Oximetry 100 99 Oxygen Delivery Nasal Cannula Oxygen Flow Rate 4 Fraction of Inspired Oxygen 99 07/25/24 08:00 07/25/24 10:00 07/25/24 11:57 Temperature 36.7 C Pulse Rate 83 83 72 Respiratory Rate 20 Blood Pressure 149/66 H Pulse Oximetry 100 Oxygen Delivery Oxygen Flow Rate Fraction of Inspired Oxygen 07/25/24 12:00 07/25/24 12:00 07/25/24 14:00 Temperature Pulse Rate 85 75 Respiratory Rate Blood Pressure Pulse Oximetry 99 Oxygen Delivery Nasal Cannula Oxygen Flow Rate 2 Fraction of Inspired Oxygen 07/25/24 14:11 07/25/24 14:11 07/25/24 14:23 Temperature Pulse Rate 76 84 Respiratory Rate 20 20 Blood Pressure Pulse Oximetry 99 Oxygen Delivery Nasal Cannula Oxygen Flow Rate 4 Fraction of Inspired Oxygen 07/25/24 15:30 07/25/24 15:54 07/25/24 15:55 Temperature Pulse Rate 84 Respiratory Rate Blood Pressure Pulse Oximetry 98 96 Oxygen Delivery Nasal Cannula Nasal Cannula Oxygen Flow Rate 2 2 Fraction of Inspired Oxygen Exam Narrative: General: Alert oriented x3, no acute distress Neck: Supple, JVD + Chest: Expiratory wheezing present, no rales or rhonchi Cardiac: S1, S2 +, regular rate, regular rhythm, no murmurs or rubs Extremities: No pedal edema, no skin rash Neurologic: Alert and oriented x3, no focal neurological deficits Results Labs and Meds 07/25/24 03:40 07/25/24 03:40 Lab results: Cardiac Enzymes 07/24/24 07/24/24 Range/Units 17:04 20:29 Troponin I 0.102 H* 0.107 H* (0.000-0.034) ng/mL CBC 07/25/24 Range/Units 03:40 WBC 13.0 H (4.5-10.0) K/mm3 RBC 4.58 L (4.6-6.20) M/mm3 Hgb 8.7 L (14.0-18.0) g/dL Hct 31.3 L (42.0-52.0) % Plt Count 211 (150-375) k/mm3 Lymph # (Auto) 0.73 L (0.9-3.2) K/mm3 Wells # (Auto) 1.4 H (0.1-0.6) K/mm3 Eos # (Auto) 0.0 (0-0.3) K/mm3 Baso # (Auto) 0.0 (0.0-0.1) K/mm3 Comprehensive Metabolic Panel 07/25/24 Range/Units 03:40 Sodium 138 (137-145) mmol/L Potassium 4.5 (3.4-5.0) mmol/L Chloride 112 H (98-107) mmol/L Carbon Dioxide 19 L (22-30) mmol/L BUN 22 H (9-20) mg/dL Creatinine 1.29 (0.7-1.3) mg/dL Glucose 51 L* (65-110) mg/dL Calcium 8.2 L (8.4-10.2) mg/dL Intake and Output 07/25/24 07/25/24 07/25/24 07:59 15:59 23:59 Intake Total 350 360 Output Total 300 Balance 50 360 Intake: Oral 350 360 Output: Urine 300 Other: # Unmeasured Voids 1 Patient Weight 07/25/24 23:59 Weight 66.9 kg
[2024-07-25] MEDS: METOPROLOL SUCCINATE EXT REL 12.5 MG TABCR PO ×2 (18:07→20:35)
[2024-07-25] MEDS: APIXABAN 5 MG TABLET BY MOUTH (18:08)
--- NOTE | 2024-07-25 18:38 | PC.NURSE ---
Unable to infuse azithromycin due to losing IV access. Pharmacy stated its ok to administer late. Will pass along to incoming RN
[2024-07-25] MEDS: CENTRAL LINE FLUSH 10 ML IV PUSH (20:36)
--- NOTE | 2024-07-25 20:40 | ECG_ITS ---
Test Date: 2024-07-25 20:44:30 Measurements Intervals [place] Rate: 151 P: 0 MS: 0 QRS: -5 QRSD: 98 T: 66 QT: 298 QTc: 474 Interpretive Statements ATRIAL FIBRILLATION WITH RAPID VENTRICULAR RESPONSE BORDERLINE ST-T WAVE ABNORMALITY- INF/HIGH LAT LEADS BASELINE ARTIFACT- I, II, AVR, AVL, AVF, V1-V6 ABNORMAL ECG Compared to ECG 07/24/2024 17:35:56 Sinus rhythm no longer present Electronically Signed On 07-26-2024 07:11:43 CDT by Miles Galvan D.O.
[2024-07-25] MEDS: AZITHROMYCIN 500 MG/NS 250 ML 500 MG/250 ML BAG 250 MG IVPB (20:48)
[2024-07-25] MEDS: METOPROLOL TARTRATE INJ 5 MG/5 ML VIAL IV PUSH (20:55)
--- NOTE | 2024-07-25 22:56 | PM.EVENT ---
Event Note Event Note Event Note: Called by nursing for patient being tachycardic,. EKG shows atrial fibrillation with RVR rate of 150 Patient given 5 of IV metoprolol which brought his heart rate down to about 120 for about 4 hours. Patient does have a history of CHF and was given 3 L fluid bolus on admission will wait for chest x-ray before getting more cardiac medications Patient does have improvement in his chest x-ray however he still looks wet, 20 mg IV Lasix ordered per cardiology's recommendations
[2024-07-25] MEDS: FUROSEMIDE INJ 40 MG/4 ML VIAL 20 MG IV PUSH (23:39)
[2024-07-26] VITALS (37 sets, daily range): BP systolic 84–119; BP diastolic 49–66; PULSE 113–143; RESP 18–22; TEMP 36.4–36.9; O2SAT 94–100
--- NOTE | 2024-07-26 | ECHO_ITS ---
Patient Info Name: Michael Stone Age: 84 years : 1940 Gender: Male Ht: 69 in Wt: 147 lbs BSA: 1.80 m2 HR: 135 bpm BP: 108 / 66 mmHg Heart Rhythm: Atrial Flutter, Tachycardia Technical Quality: Good Exam Date: 07/26/2024 11:23 AM Patient Status: I Admit Date: 07/25/2024 Exam Type: CA echo dop color flow w con Complete two-dimensional, color flow and Doppler transthoracic echocardiogram is performed with contrast to opacify the left ventricle and to improve the deliniation of the left ventricle endocardial borders. Staff Referring Physician: Shawn East Laboratory Tester: Mehnaz Monge Attending Provider: Lucila Torres Contrast/Agitated Saline Contrast/Ag. Saline: Definity Amount: 2.00 ml Existing IV Access: No Summary 1. Normal left and right ventricular size and systolic function without wall motion abnormality. 2. Moderate left atrial enlargement. 3. Small amount of MR and TR. 4. Patient is tachycardic during this echo suspect atrial flutter with rapid response, correlate with ECG. Left Ventricle Left ventricular chamber dimension is normal. Left ventricular systolic function is normal, estimated at 60-65. The left ventricular diastolic function is indeterminate. Right Ventricle Right ventricular chamber dimension is normal. Left Atria Left atrial chamber dimension is moderately enlarged. Right Atria Right atrial chamber dimension is normal. Aortic Valve The aortic valve is trileaflet. There is mild aortic valve sclerosis. Pulmonic Valve The pulmonic valve is not well visualized. Mitral Valve The mitral valve has normal leaflets. There is trace mitral valve regurgitation. Tricuspid Valve The tricuspid valve leaflets are normal. There is mild tricuspid valve regurgitation. Pericardium/Pleural The pericardium appears normal. Aorta The aortic root size at the sinus of Valsalva is normal. Left Ventricular Outflow Tract Name Value Normal LVOT 2D LVOT Diameter 2.0 cm LVOT Doppler LVOT Peak Velocity 82 cm/s LVOT Peak Gradient 3 mmHg LVOT Mean Gradient 1 mmHg LVOT VTI 15 cm LVOT Stroke Volume 48 ml LVOT CO 6.4 l/min LVOT CI 3.6 l/min/m2 Pulmonic Valve Name Value Normal RVOT Doppler RVOT Peak Velocity 53 cm/s RVOT Peak Gradient 1 mmHg PV Doppler PV Peak Velocity 96 cm/s PV Peak Gradient 4 mmHg Mitral Valve Name Value Normal MV Diastolic Function MV E Peak Velocity 110 cm/s MV A Peak Velocity 97 cm/s MV E/A 1.1 MV Decel Time (PW) 70 ms MV Annular TDI MV E/e' (Septal) 13.3 MV E/e' (Lateral) 34.6 MV E/e' (Average) 23.9 Tricuspid Valve Name Value Normal TV Regurgitation Doppler TR Peak Velocity 259 cm/s TR Peak Gradient 27 mmHg Aortic Valve Name Value Normal AV Doppler AV Peak Velocity 124 cm/s AV Peak Gradient 6 mmHg AV Area (Cont Eq Bill) 2.1 cm2 AV DI (Bill) 0.66 AV Regurgitation 2D LVOT Area 3.2 cm2 Ventricles Name Value Normal LV Dimensions 2D/MM IVS Diastolic Thickness (2D) 1.1 cm 0.6-1.0 LVID Diastole (2D) 3.8 cm 4.2-5.8 LVIW Diastolic Thickness (2D) 1.1 cm 0.6-1.0 LVID Systole (2D) 2.4 cm 2.5-4.0 LVOT Diameter 2.0 cm LV Mass (2D Cubed) 138.41 g 88.00-224.00 LV Mass Index (2D Cubed) 77 g/m2 49-115 Relative Wall Thickness (2D) 0.58 <=0.42 LV Fractional Shortening/Ejection Fraction 2D/MM LV Fractional Shortening (2D) 36 % 25-43 LV EF (2D Teichholz) 66 % LV Diastolic Volume (4C MOD) 63 ml LV EF (4C MOD) 61 % LV Diastolic Volume (2C MOD) 61 ml LV EF (2C MOD) 61 % LV Diastolic Volume (BP MOD) 63 ml 62-150 LV Diastolic Volume Index (BP MOD) 35 ml/m2 34-74 LV Systolic Volume (BP MOD) 25 ml 21-61 LV Systolic Volume Index (BP MOD) 14 ml/m2 11-31 LV EF (BP MOD) 60 % 52-72 LV Diastolic Length (4C) 7.0 cm LV Systolic Length (4C) 6.1 cm LV Stroke Volume (4C MOD) 38 ml Atria Name Value Normal LA Dimensions LA Volume (4C A-L) 49 ml LA Volume (BP A-L) 67 ml RA Dimensions RA Systolic Major [place] Length (4C) 4.8 cm 2.1-2.7 RA Area (4C) 15.3 cm2 <=18.0 Report Signatures
[2024-07-26] MEDS: METOPROLOL TARTRATE INJ 5 MG/5 ML VIAL IV PUSH (01:55)
[2024-07-26] MEDS: IPRATROPIUM 0.5 MG/ALBUTEROL SULFATE 2.5 MG AMPUL.NEB 3 ML INHALATION ×3 (01:59→13:25)
[2024-07-26] MEDS: LEVOTHYROXINE SODIUM PO (06:07)
[2024-07-26] MEDS: CENTRAL LINE FLUSH 10 ML IV PUSH ×3 (06:08→21:40)
[2024-07-26 06:18] LABS: Hematocrit 30.8 % (42.0-52.0); Hemoglobin 8.8 g/dL (14.0-18.0); Immature Granulocyte Percent A 0.7 % (0-0.5); Lymphocytes Absolute Auto 0.43 K/mm3 (0.9-3.2); Mean Corpuscular HGB Conc 28.6 g/dl (32-36); Mean Corpuscular Hemoglobin 19.1 pg (26-34); Mean Corpuscular Volume 66.8 fl (80-100); Nucleated Red Blood Cells Absolute Auto 0.000 K/mm3 (0.0-0.012); Nucleated Red Blood Cells Perc 0.0 % (0.0-0.2); Platelet Count Result 283 k/mm3 (150-375); Red Blood Count 4.61 M/mm3 (4.6-6.20); White Blood Count 12.1 K/mm3 (4.5-10.0)
[2024-07-26 07:02] LABS: Anisocytosis 1+; Burr Cells 1+; Hypochromasia 1+; Microcytosis 1+ (NORMAL); Ovalocytes 1+; Schistocytes None Seen; Target Cells 1+
[2024-07-26 07:19] LABS: Alanine Aminotransferase 25 U/L (6-50); Albumin Level 2.9 g/dL (3.5-5.1); Alkaline Phosphatase 36 U/L (38-126); Anion Gap 5 mmol/L (4-12); Aspartate Amino Transferase 31 U/L (17-59); Bilirubin,Total 0.3 mg/dL (0.2-1.3); Blood Urea Nitrogen 25 mg/dL (9-20); Calcium 8.4 mg/dL (8.4-10.2); Carbon Dioxide 23 mmol/L (22-30); Chloride 109 mmol/L (98-107); Estimated CRCL calculation 36 ml/min; Estimated Glomerular Filt Rate 54; Glucose 104 mg/dL (65-110); Magnesium 2.2 mg/dL (1.6-2.3); Potassium 4.0 mmol/L (3.4-5.0); Sodium 137 mmol/L (137-145); Total Protein 5.7 g/dL (6.3-8.2)
[2024-07-26] MEDS: FLUTICASONE/UMECLIDIN/VILANTER 100-62.5-25 MCG ELLIPTA 1 PUFF INHALATION (07:38)
--- NOTE | 2024-07-26 09:05 | ECG_ITS ---
Test Date: 2024-07-26 09:21:56 Measurements Intervals [place] Rate: 134 P: 0 GA: 0 QRS: 13 QRSD: 88 T: 39 QT: 287 QTc: 430 Interpretive Statements ATRIAL FLUTTER/TACHYCARDIA WITH RAPID VENTRICULAR RESPONSE DELAYED PRECORDIAL R/S TRANSITION BASELINE ARTIFACT- I, II, III, AVR, AVL ABNORMAL ECG Compared to ECG 07/25/2024 20:44:30 HEART RATE HAS DECREASED Electronically Signed On 07-26-2024 09:59:27 CDT by Miles Galvan D.O.
--- NOTE | 2024-07-26 09:07 | WPDMODSED ---
Moderate Sedation Note-Pt Data Patient Data Allergies Allergy/AdvReac Type Severity Reaction Status Date / Time No Known Allergies Allergy Verified 07/18/24 13:49 Home Medications ?Medication ?Instructions ?Recorded ?Confirmed ?Type lidocaine-prilocaine 2.5 %-2.5 % 1 applic topical ONCE PRN for 01/09/19 07/24/24 History topical cream ramona cath during chemo tamsulosin 0.4 mg capsule 0.4 mg PO DAILY 01/23/19 07/24/24 History finasteride 5 mg tablet 5 mg PO DAILY 05/27/20 07/24/24 History gabapentin 100 mg capsule 100 mg PO Q12H 07/01/20 07/24/24 History dexamethasone 4 mg tablet 8 mg PO DAILY PRN chemo 10/14/20 07/24/24 History Eliquis 5 mg PO BID 04/04/21 07/24/24 History cholecalciferol (vitamin D3) 50 50 mcg PO DAILY 04/05/22 07/24/24 History mcg (2,000 unit) capsule dapagliflozin propanediol 10 mg 10 mg PO DAILY 07/24/23 07/24/24 History tablet (Farxiga) spironolactone 25 mg tablet 25 mg PO .QOD 09/26/23 07/24/24 History Nebulizer Machine #1 device 12/20/23 07/24/24 Rx furosemide 20 mg tablet 10 mg (1/2 x 20 mg) PO QAM #90 tabs 01/08/24 07/24/24 Rx albuterol sulfate 90 mcg/actuation See Rx Instructions .Route 01/11/24 07/24/24 Rx aerosol inhaler .COMPLEX #51 grams metoprolol succinate 25 mg 12.5 mg PO DAILY 02/06/24 07/24/24 History tablet,extended release 24 hr pravastatin 40 mg tablet See Rx Instructions .Route 03/08/24 07/24/24 Rx .COMPLEX #90 tabs albuterol sulfate 2.5 mg/3 mL 2.5 mg (3 mL) inhalation Q4-6H PRN 04/22/24 07/24/24 Rx (0.083 %) solution for nebulization shortness of breath or wheezing #90 mL fluticasone fur. 100 mcg-umeclid See Rx Instructions .Route 06/09/25 06/18/25 Rx 62.5 mcg-vilant 25 mcg .COMPLEX #180 grams inhalat.powder (Trelegy Ellipta) cyanocobalamin (vitamin B-12) 1,000 mcg PO DAILY 07/16/24 07/24/24 History 1,000 mcg tablet (Vitamin B-12) folic acid 400 mcg tablet 400 mcg PO DAILY 07/16/24 07/24/24 History levothyroxine 88 mcg tablet 44 mcg PO DAILY 07/16/24 07/24/24 History (Synthroid) acetaminophen 325 mg tablet 325 mg PO Q6H PRN pain 07/18/24 07/24/24 History (Tactinal) dutasteride 0.5 mg capsule 0.5 mg PO .daily 07/18/24 07/24/24 History ferrous sulfate 325 mg (65 mg 325 mg PO BID 07/23/24 07/24/24 History iron) tablet,delayed release Current Medications: Active Medications Acetaminophen (Acetaminophen 325 Mg Tablet) 650 mg PO Q4H PRN PRN Reason: Mild Pain (1-3) or Fever Hydrocodone Bitart/Acetaminophen (Hydrocodone/Acetaminophen (*Crx) 5-325 Mg Tablet) 1 tab PO Q4H PRN PRN Reason: Pain Rated 4-6 Albuterol/Ipratropium (Ipratropium 0.5 Mg/Albuterol Sulfate 2.5 Mg Ampul.Neb 3 Ml) 3 ml INHALATION Q6HRT [facility] Last Admin: 07/26/24 07:39 Dose: 3 ml Apixaban (Apixaban 5 Mg Tablet) 5 mg BY MOUTH BID [facility] Last Admin: 07/25/24 18:08 Dose: 5 mg Dextrose (Dextrose 50% 25 Gm/50 Ml Syringe) 12.5 gm IV PUSH PRN PRN; Protocol PRN Reason: Hypoglycemia Last Admin: 07/25/24 04:57 Dose: 12.5 gm Docusate Sodium (Docusate Sodium 100 Mg Capsule) 100 mg PO DAILY [facility] Last Admin: 07/25/24 09:00 Dose: Not Given Dutasteride (Dutasteride 0.5 Mg Capsule) 0.5 mg PO DAILY [facility] Last Admin: 07/25/24 08:53 Dose: 0.5 mg Empagliflozin (Empagliflozin 25 Mg Tablet) 25 mg BY MOUTH DAILY [facility] Last Admin: 07/25/24 09:15 Dose: 25 mg Finasteride (Finasteride 5 Mg Tablet) 5 mg PO DAILY [facility] Last Admin: 07/25/24 09:15 Dose: 5 mg Fluticasone/Umeclidinium/Vilanterol (Fluticasone/Umeclidin/Vilanter 100-62.5-25 Mcg Ellipta) 1 puff INHALATION DAILYRT [facility] Last Admin: 07/26/24 07:38 Dose: 1 puff Furosemide (Furosemide 10 Mg Tablet) 10 mg PO QAM [facility] Last Admin: 07/25/24 09:15 Dose: 10 mg Gabapentin (Gabapentin 100 Mg Capsule) 100 mg PO BID [facility] Last Admin: 07/25/24 18:06 Dose: 100 mg Glucagon (Glucagon For Inj 1 Mg Vial) 1 mg IM PRN PRN; Protocol PRN Reason: Hypoglycemia Glucose (Glucose Oral Gel 15 Gm Of Glucse In 37.5 Gm Tube) 15 gm PO PRN PRN; Protocol PRN Reason: Hypoglycemia Guaifenesin (Guaifenesin 12 Hr 600 Mg Tabcr) 1,200 mg PO Q12HR [facility] Last Admin: 07/25/24 20:34 Dose: 1,200 mg Heparin Sodium (Beef Lung) (Heparin Flush 50 Units/5 Ml Syringe) 50 units IV PUSH QAM [facility] Heparin Sodium (Beef Lung) (Heparin Flush 50 Units/5 Ml Syringe) 50 units IV PUSH PRN PRN PRN Reason: after intermittent infusion Heparin Sodium (Beef Lung) (Heparin Flush 50 Units/5 Ml Syringe) 50 units IV PUSH PRN PRN PRN Reason: after blood draws Heparin Sodium (Porcine) (Heparin Sodium Lock Flush 500 Units/5 Ml Syringe) 500 units IV PUSH PRN PRN PRN Reason: see comments below Ceftriaxone Sodium (Rocephin 1 Gm/Ns 50 Ml) 1 gm in 50 mls @ 100 mls/hr IVPB Q24H [facility] Last Infusion: 07/25/24 20:59 Dose: Infused Azithromycin (Zithromax) 500 mg in 250 mls @ 250 mls/hr IVPB Q24H [facility] Last Infusion: 07/25/24 21:48 Dose: Infused Dextrose (Dextrose 5% 1,000 Ml) 1,000 mls @ 100 mls/hr IVPB PRN PRN; Protocol PRN Reason: Hypoglycemia Levothyroxine Sodium (Levothyroxine Sodium 44 Mcg Tablet) 44 mcg PO DAILY@30 [facility] Last Admin: 07/26/24 06:07 Dose: 44 mcg Metoprolol Succinate (Metoprolol Succinate Ext Rel 12.5 Mg Tabcr) 12.5 mg PO QHS [facility] Last Admin: 07/25/24 20:35 Dose: 12.5 mg Perflutren Lipid Microsphere (Perflutren Lipid Microspheres 1.5 Ml Vial Diluted To 10 Ml Total Volume) 0 ml IV PUSH ONCE PRN; Protocol PRN Reason: adequate visualization Stop: 07/28/24 12:31 Pravastatin Sodium (Pravastatin Sodium 20 Mg Tablet) 40 mg BY MOUTH DAILY [facility] Last Admin: 07/25/24 08:51 Dose: 40 mg Prednisone (Prednisone 20 Mg Tablet) 40 mg PO DAILY@0800 [facility] Stop: 07/30/24 07:59 Last Admin: 07/25/24 18:07 Dose: 40 mg Promethazine HCl (Promethazine Hcl 25 Mg/Ml Ampul) 12.5 mg IV PUSH Q6H PRN PRN Reason: Nausea Sodium Chloride (Central Line Flush) 10 ml IV PUSH Q8HR [facility] Last Admin: 07/26/24 06:08 Dose: 10 ml Spironolactone (Spironolactone 25 Mg Tablet) 25 mg PO Q48H [facility] Last Admin: 07/25/24 08:53 Dose: 25 mg Tamsulosin HCl (Tamsulosin Hcl 0.4 Mg Capsule) 0.4 mg PO DAILY [facility] Last Admin: 07/25/24 08:53 Dose: 0.4 mg Sedation/Anesthesia: No previous sedation/anesthesia problems (including family history). [facility] Past Medical History Medical History (Updated 07/25/24 @ 19:02 by Brittani Parisi MD) Cancer of lung, throat, head, neck and tongue Occult blood in stools Low hemoglobin Chronic obstructive pulmonary disease, unspecified Arthritis Right groin pain Head and neck cancer Heart failure with preserved ejection fraction Encounter for Medicare annual wellness exam [place] (dyspnea on exertion) Lateral epicondylitis of right elbow BMI 21.0-21.9, adult Right leg pain Hypothyroidism (acquired) Dyspnea Injury of lip Vitamin D deficiency Borderline abnormal TFTs Palpitations Peripheral neuropathy Depression PAC (premature atrial contraction) SVT (supraventricular tachycardia) Ectopic beats Dry mouth BMI 23.0-23.9, adult Follow up BMI 22.0-22.9, adult Constipation Urinary retention BMI 24.0-24.9, adult Squamous cell cancer of tongue Metastatic lung cancer (metastasis from lung to other site) Anxiety BMI 26.0-26.9,adult Dysphagia Cellulitis Thrush Odynophagia Chronic sore throat Encounter for routine adult health examination with abnormal findings BMI 27.0-27.9,adult Essential (primary) hypertension History of tobacco use Hx of cancer of lung Malignant neoplasm of hilus of lung Pulmonary emphysema Insomnia Pedal edema Hyperlipidemia Benign essential hypertension Encounter for routine adult health examination without abnormal findings On custodial drug therapy BPH (benign prostatic hyperplasia) Surgical History Surgical History History of lobectomy of lung 2007 removal of upper lobe left lung Family History Family History Sibling Family history of allergic disorder Father Family history of emphysema Family history of chronic obstructive pulmonary disease Mother Family history of emphysema, Onset Age: 89 Family history of malignant neoplasm of breast in first degree relative Family history of malignant neoplasm of breast Social History Social History Smoking packs per day: 1.5 Smoking cigarettes per day: 30.0 Years smoked: 20 Smoking pack-years: 30.00 Smoking status: Former smoker Tobacco type: cigarettes Second hand tobacco smoke exposure: No Smoking end date: 07/08/07 Additional smoking assessment comments: quit 2007 Alcohol intake: former Alcohol use details: None since 1995 Substance use: never Substance use type: does not use Do You Feel Safe in your Home?: Yes Lack of Transportation: No Lack of Food: Never True Current Housing: I Have Housing Concerned About Future Housing: No Difficulty Paying Gas/Electric Bills: No Difficulty Paying for Meds: No Currently Unemployed: No Education: Master's Degree or Higher Difficulty w/ Childcare or Family Care: No Living arrangements: with family Gender identity (if verbalized by the patient): Male Spiritual care concerns: Yes Agree to blood products: Yes Mod Sed Physical Exam Physical Exam Pre Procedural Exam: Normal: Heart Rate and Heart Rhythm and Variation: Lungs (End-expiratory wheezing present, no rales or rhonchi) Hours since solid foods: 12 Hours since liquid intake: 12 Mallampati Classification: class II Internal Medicine - PN: Obj Da Vital Signs Vital Signs: Vital Signs - 24 hr 07/25/24 10:00 07/25/24 11:57 07/25/24 12:00 Temperature 36.7 C Pulse Rate 83 72 Respiratory Rate 20 Blood Pressure 149/66 H Pulse Oximetry 100 99 Oxygen Delivery Nasal Cannula Oxygen Flow Rate 2 Fraction of Inspired Oxygen 07/25/24 12:00 07/25/24 14:00 07/25/24 14:11 Temperature Pulse Rate 85 75 Respiratory Rate Blood Pressure Pulse Oximetry 99 Oxygen Delivery Nasal Cannula Oxygen Flow Rate 4 Fraction of Inspired Oxygen 07/25/24 14:11 07/25/24 14:23 07/25/24 15:30 Temperature Pulse Rate 76 84 Respiratory Rate 20 20 Blood Pressure Pulse Oximetry 98 Oxygen Delivery Nasal Cannula Oxygen Flow Rate 2 Fraction of Inspired Oxygen 07/25/24 15:54 07/25/24 15:55 07/25/24 16:23 Temperature 36.7 C Pulse Rate 84 94 Respiratory Rate 21 H Blood Pressure 138/74 Pulse Oximetry 96 99 Oxygen Delivery Nasal Cannula Oxygen Flow Rate 2 Fraction of Inspired Oxygen 07/25/24 18:00 07/25/24 18:07 07/25/24 19:52 Temperature Pulse Rate 97 98 88 Respiratory Rate 20 Blood Pressure Pulse Oximetry Oxygen Delivery Oxygen Flow Rate Fraction of Inspired Oxygen 07/25/24 19:54 07/25/24 20:00 07/25/24 20:00 Temperature 36.8 C Pulse Rate 88 94 98 Respiratory Rate 20 18 Blood Pressure 122/85 Pulse Oximetry 98 97 Oxygen Delivery Nasal Cannula Oxygen Flow Rate 1 Fraction of Inspired Oxygen 24 07/25/24 20:04 07/25/24 20:30 07/25/24 20:35 Temperature Pulse Rate 85 159 H Respiratory Rate 20 Blood Pressure Pulse Oximetry 100 Oxygen Delivery Nasal Cannula Oxygen Flow Rate 2 Fraction of Inspired Oxygen 07/25/24 20:50 07/25/24 20:55 07/25/24 22:00 Temperature Pulse Rate 158 H 225 H 127 H Respiratory Rate 18 Blood Pressure 124/82 Pulse Oximetry 94 Oxygen Delivery Oxygen Flow Rate Fraction of Inspired Oxygen 07/25/24 23:52 07/26/24 00:00 07/26/24 00:00 Temperature 36.8 C Pulse Rate 138 H 121 H Respiratory Rate 18 Blood Pressure 113/61 Pulse Oximetry 94 97 Oxygen Delivery Nasal Cannula Oxygen Flow Rate 2 Fraction of Inspired Oxygen 07/26/24 01:55 07/26/24 01:55 07/26/24 02:00 Temperature Pulse Rate 138 H 138 H 121 H Respiratory Rate 20 Blood Pressure 108/64 Pulse Oximetry Oxygen Delivery Oxygen Flow Rate Fraction of Inspired Oxygen 07/26/24 02:00 07/26/24 02:01 07/26/24 04:00 Temperature Pulse Rate 128 H Respiratory Rate Blood Pressure Pulse Oximetry 97 98 Oxygen Delivery Nasal Cannula Nasal Cannula Oxygen Flow Rate 1 2 Fraction of Inspired Oxygen 24 07/26/24 04:00 07/26/24 04:00 07/26/24 06:00 Temperature 36.8 C Pulse Rate 125 H 125 H 127 H Respiratory Rate 18 Blood Pressure 108/66 Pulse Oximetry 98 Oxygen Delivery Oxygen Flow Rate Fraction of Inspired Oxygen 07/26/24 07:39 07/26/24 07:39 07/26/24 07:46 Temperature Pulse Rate 113 H 140 H Respiratory Rate 18 18 Blood Pressure Pulse Oximetry 97 Oxygen Delivery High Flow Nasal Cannula Oxygen Flow Rate 4 Fraction of Inspired Oxygen 07/26/24 07:46 07/26/24 07:51 Temperature 36.6 C Pulse Rate 138 H 132 H Respiratory Rate 22 H Blood Pressure 114/66 Pulse Oximetry 97 Oxygen Delivery Oxygen Flow Rate Fraction of Inspired Oxygen Intake/Output Intake/Output: Intake & Output 07/23/24 07/24/24 07/25/24 07/26/24 23:59 23:59 23:59 23:59 Intake Total 2150 1450 350 Output Total 50 700 900 Balance 2100 750 -550 Meds/Results Medications: Active Medications Generic Name Dose Route Start Last Admin Trade Name Freq PRN Reason Stop Dose Admin Acetaminophen 650 mg 07/24/24 15:42 Acetaminophen 325 Mg Tablet PO Q4H PRN Mild Pain (1-3) or Fever Hydrocodone Bitart/Acetaminophen 1 tab 07/24/24 15:42 Hydrocodone/Acetaminophen (*Crx) 5-325 Mg Tablet PO Q4H PRN Pain Rated 4-6 Albuterol/Ipratropium 3 ml 07/25/24 02:00 07/26/24 07:39 Ipratropium 0.5 Mg/Albuterol Sulfate 2.5 Mg Ampul.Neb 3 Ml INHALATION 3 ml Q6HRT [facility]AS[facility] Administration Apixaban 5 mg 07/25/24 09:00 07/25/24 18:08 Apixaban 5 Mg Tablet BY MOUTH 5 mg BID [facility]ASHA Administration Dextrose 12.5 gm 07/25/24 04:38 07/25/24 04:57 Dextrose 50% 25 Gm/50 Ml Syringe IV PUSH 12.5 gm PRN PRN Administration Hypoglycemia Protocol Docusate Sodium 100 mg 07/25/24 09:00 07/25/24 09:00 Docusate Sodium 100 Mg Capsule PO Not Given DAILY NATASHA Dutasteride 0.5 mg 07/25/24 09:00 07/25/24 08:53 Dutasteride 0.5 Mg Capsule PO 0.5 mg DAILY [facility] Administration Empagliflozin 25 mg 07/25/24 09:00 07/25/24 09:15 Empagliflozin 25 Mg Tablet BY MOUTH 25 mg DAILY [facility] Administration Finasteride 5 mg 07/25/24 09:00 07/25/24 09:15 Finasteride 5 Mg Tablet PO 5 mg DAILY [facility] Administration Fluticasone/Umeclidinium/Vilanterol 1 puff 07/25/24 08:00 07/26/24 07:38 Fluticasone/Umeclidin/Vilanter 100-62.5-25 Mcg Ellipta INHALATION 1 puff DAILYRT [facility] Administration Furosemide 10 mg 07/25/24 09:00 07/25/24 09:15 Furosemide 10 Mg Tablet PO 10 mg QAM [facility] Administration Gabapentin 100 mg 07/24/24 19:00 07/25/24 18:06 Gabapentin 100 Mg Capsule PO 100 mg BID NATASHA Administration Glucagon 1 mg 07/25/24 04:38 Glucagon For Inj 1 Mg Vial IM PRN PRN Hypoglycemia Protocol Glucose 15 gm 07/25/24 04:38 Glucose Oral Gel 15 Gm Of Glucse In 37.5 Gm Tube PO PRN PRN Hypoglycemia Protocol Guaifenesin 1,200 mg 07/25/24 09:00 07/25/24 20:34 Guaifenesin 12 Hr 600 Mg Tabcr PO 1,200 mg Q12HR [facility] Administration Heparin Sodium (Beef Lung) 50 units 07/26/24 09:00 Heparin Flush 50 Units/5 Ml Syringe IV PUSH QAM [facility] Heparin Sodium (Beef Lung) 50 units 07/25/24 18:45 Heparin Flush 50 Units/5 Ml Syringe IV PUSH PRN PRN after intermittent infusion Heparin Sodium (Beef Lung) 50 units 07/25/24 18:45 Heparin Flush 50 Units/5 Ml Syringe IV PUSH PRN PRN after blood draws Heparin Sodium (Porcine) 500 units 07/25/24 18:45 Heparin Sodium Lock Flush 500 Units/5 Ml Syringe IV PUSH PRN PRN see comments below Ceftriaxone Sodium 1 gm in 50 mls @ 100 mls/hr 07/25/24 18:00 07/25/24 20:59 Rocephin 1 Gm/Ns 50 Ml IVPB Infused Q24H [facility] Infusion Azithromycin 500 mg in 250 mls @ 250 mls/hr 07/25/24 18:00 07/25/24 21:48 Zithromax IVPB Infused Q24H [facility] Infusion Dextrose 1,000 mls @ 100 mls/hr 07/25/24 04:38 Dextrose 5% 1,000 Ml IVPB PRN PRN Hypoglycemia Protocol Levothyroxine Sodium 44 mcg 07/25/24 06:30 07/26/24 06:07 Levothyroxine Sodium 44 Mcg Tablet PO 44 mcg DAILY@0630 [facility] Administration Metoprolol Succinate 12.5 mg 07/25/24 21:00 07/25/24 20:35 Metoprolol Succinate Ext Rel 12.5 Mg Tabcr PO 12.5 mg QHS [facility] Administration Perflutren Lipid Microsphere 0 ml 07/25/24 12:31 Perflutren Lipid Microspheres 1.5 Ml Vial Diluted To 10 Ml Total Volume IV PUSH 07/28/24 12:31 ONCE PRN adequate visualization Protocol Pravastatin Sodium 40 mg 07/25/24 09:00 07/25/24 08:51 Pravastatin Sodium 20 Mg Tablet BY MOUTH 40 mg DAILY [facility] Administration Prednisone 40 mg 07/25/24 08:00 07/25/24 18:07 Prednisone 20 Mg Tablet PO 07/30/24 07:59 40 mg DAILY@0800 [facility]AS[facility] Administration Promethazine HCl 12.5 mg 07/24/24 15:42 Promethazine Hcl 25 Mg/Ml Ampul IV PUSH Q6H PRN Nausea Sodium Chloride 10 ml 07/25/24 22:00 07/26/24 06:08 Central Line Flush IV PUSH 10 ml Q8HR [facility] Administration Spironolactone 25 mg 07/25/24 09:00 07/25/24 08:53 Spironolactone 25 Mg Tablet PO 25 mg Q48H [facility] Administration Tamsulosin HCl 0.4 mg 07/25/24 09:00 07/25/24 08:53 Tamsulosin Hcl 0.4 Mg Capsule PO 0.4 mg DAILY [facility] Administration Radiology Results: ITS Impressions Chest X-Ray 07/25/24 23:14 IMPRESSION: No focal infiltrate or effusion. Stable volume loss within the left hemithorax with left apical scarring, unchanged. Labs 07/26/24 06:06 07/26/24 06:06 Labs: Laboratory Results - last 24 hr 07/25/24 07/25/24 07/26/24 09:42 18:02 06:06 WBC 12.1 H RBC 4.61 Hgb 8.8 L Hct 30.8 L MCV 66.8 L MCH 19.1 L MCHC 28.6 L RDW 18.8 H Plt Count 283 MPV 10.7 H Immature Gran % (Auto) 0.7 H Neut % (Auto) 89.4 H Lymph % (Auto) 3.[address] [place] % (Auto) 6.3 Eos % (Auto) 0.0 Baso % (Auto) 0.1 L Lymph # (Auto) 0.[address] [place] # (Auto) 0.8 H Eos # (Auto) 0.0 Baso # (Auto) 0.0 Abs Immat Gran (auto) 0.08 H Absolute Neuts (auto) 10.8 H Absolute Nucleated RBC 0.000 Band Neutrophils % Not Reportable Nucleated RBC % 0.0 Platelet Estimate Adequate Hypochromasia 1+ Anisocytosis 1+ Microcytosis 1+ Target Cells 1+ Ovalocytes 1+ [place] Cells 1+ Schistocytes None seen Sodium 137 Potassium 4.0 Chloride 109 H Carbon Dioxide 23 Anion Gap 5 BUN 25 H Creatinine 1.26 Estim Creat Clear Calc 36 Estimated GFR 54 L Glucose 104 POC Capillary Glucose 102 151 H Calcium 8.4 Magnesium 2.2 Total Bilirubin 0.3 AST 31 ALT 25 Alkaline Phosphatase 36 L Total Protein 5.7 L Albumin 2.9 L 07/26/24 07:11 WBC RBC Hgb Hct MCV MCH MCHC RDW Plt Count MPV Immature Gran % (Auto) Neut % (Auto) Lymph % (Auto) [place] % (Auto) Eos % (Auto) Baso % (Auto) Lymph # (Auto) [place] # (Auto) Eos # (Auto) Baso # (Auto) Abs Immat Gran (auto) Absolute Neuts (auto) Absolute Nucleated RBC Band Neutrophils % Nucleated RBC % Platelet Estimate Hypochromasia Anisocytosis Microcytosis Target Cells Ovalocytes [place] Cells Schistocytes Sodium Potassium Chloride Carbon Dioxide Anion Gap BUN Creatinine Estim Creat Clear Calc Estimated GFR Glucose POC Capillary Glucose 97 Calcium Magnesium Total Bilirubin AST ALT Alkaline Phosphatase Total Protein Albumin ASA Classification/Sedation ASA Classification/Sedation ASA Class: IV Emergent: No Risks: Risks, benefits and alternatives explained and patient/family accepted plan for sedation. Patient re-evaluated immediately prior to sedation.
--- NOTE | 2024-07-26 09:08 | P.PNIM_ITS ---
Progress Note: A&P Assessment and Plan (1) COPD exacerbation: Code(s): J44.1 - Chronic obstructive pulmonary disease with (acute) exacerbation Status: Acute Assessment and Plan: Gradually gettinn g better Continue azithromycin Rocephin DuoNeb q.6 Solu-Medrol x1 followed by prednisone Guaifenesin incentive spirometer Chest x-ray with chronic interstitial change with left-sided volume loss unchanged from prior without focal infiltrate or effusion. (2) Heart failure with preserved ejection fraction: Qualifiers: Heart failure chronicity: unspecified Qualified Code(s): I50.30 - Unspecified diastolic (congestive) heart failure Code(s): I50.30 - Unspecified diastolic (congestive) heart failure Status: Acute Assessment and Plan: Patient given 3 L IV fluids and emergency room for elective acidosis, currently euvolemic Diuretics restarted Monitor for fluid overload Improving, will monitor (3) Hyperlipidemia: Qualifiers: Hyperlipidemia type: mixed hyperlipidemia Qualified Code(s): E78.2 - Mixed hyperlipidemia Code(s): E78.5 - Hyperlipidemia, unspecified Status: Acute Assessment and Plan: Home medication (4) Hypothyroidism (acquired): Code(s): E03.9 - Hypothyroidism, unspecified Status: Acute Assessment and Plan: Home medications (5) BPH (benign prostatic hyperplasia): Qualifiers: Lower urinary tract symptom presence: symptoms present Lower urinary tract symptom detail: unspecified Qualified Code(s): N40.1 - Benign prostatic hyperplasia with lower urinary tract symptoms Code(s): N40.0 - Benign prostatic hyperplasia without lower urinary tract symptoms Status: Acute Assessment and Plan: Continue home meds Plan Hypoxic respiratory failure: Needing oxygen supplementation. Elevated troponin flat trend. Likely related to hypoxia. Will check echocardiogram DVT prophylaxis on apixaban Atrial flutter with rapid ventricular rate ulcerated 146 on arrival. Back to sinus rhythm already. Anemia: Recent EGD and colonoscopy negative Hypoglycemia: Not on any hypoglycemic agent. Will continue to monitor Sepsis with white cell count tachycardia lactic acidosis. Received IV fluid resuscitation. Follow blood culture. Subjective Date/time seen: 07/26/24 09:08 Interval history: Patient was seen during the morning today. No new complaints. Pain control. No shortness of breath or chest pain. Review of Systems Review of Systems: 12 systems were reviewed and are negativ e except for as per HPI. Exam Narrative: General: well appearing, appears stated age. 88 acute distress HEENT: normocephalic, atraumatic. Mucous membranes moist. Respiratory: Diminished lung sounds bilaterally no respiratory distress Cardiovascular: Regular rate and rhythm, normal S1-S2 upon ascultation. Abdomen: Soft, round, no pulsatile masses, nondistended and nontender. No rebound, no guarding. Extremities: No cyanosis, clubbing, or edema present. Pulses are palpable 2/2. Active ROM to all four extremities. Neuro: Alert and orientated x 4. PERRLA. Cranial nerves 2-12 intact without focal deficit. Skin: Warm, dry, and intact, without rash, erythema, or lesion. Psych: pleasant, cooperative, normal speech, normal affect, no hallucinations, no dysarthia Objective Data Vital Signs Vital Signs: Vital Signs - 24 hr 07/25/24 10:00 07/25/24 11:57 07/25/24 12:00 Temperature 36.7 C Pulse Rate 83 72 Respiratory Rate 20 Blood Pressure 149/66 H Pulse Oximetry 100 99 Oxygen Delivery Nasal Cannula Oxygen Flow Rate 2 Fraction of Inspired Oxygen 07/25/24 12:00 07/25/24 14:00 07/25/24 14:11 Temperature Pulse Rate 85 75 Respiratory Rate Blood Pressure Pulse Oximetry 99 Oxygen Delivery Nasal Cannula Oxygen Flow Rate 4 Fraction of Inspired Oxygen 07/25/24 14:11 07/25/24 14:23 07/25/24 15:30 Temperature Pulse Rate 76 84 Respiratory Rate 20 20 Blood Pressure Pulse Oximetry 98 Oxygen Delivery Nasal Cannula Oxygen Flow Rate 2 Fraction of Inspired Oxygen 07/25/24 15:54 07/25/24 15:55 07/25/24 16:23 Temperature 36.7 C Pulse Rate 84 94 Respiratory Rate 21 H Blood Pressure 138/74 Pulse Oximetry 96 99 Oxygen Delivery Nasal Cannula Oxygen Flow Rate 2 Fraction of Inspired Oxygen 07/25/24 18:00 07/25/24 18:07 07/25/24 19:52 Temperature Pulse Rate 97 98 88 Respiratory Rate 20 Blood Pressure Pulse Oximetry Oxygen Delivery Oxygen Flow Rate Fraction of Inspired Oxygen 07/25/24 19:54 07/25/24 20:00 07/25/24 20:00 Temperature 36.8 C Pulse Rate 88 94 98 Respiratory Rate 20 18 Blood Pressure 122/85 Pulse Oximetry 98 97 Oxygen Delivery Nasal Cannula Oxygen Flow Rate 1 Fraction of Inspired Oxygen 24 07/25/24 20:04 07/25/24 20:30 07/25/24 20:35 Temperature Pulse Rate 85 159 H Respiratory Rate 20 Blood Pressure Pulse Oximetry 100 Oxygen Delivery Nasal Cannula Oxygen Flow Rate 2 Fraction of Inspired Oxygen 07/25/24 20:50 07/25/24 20:55 07/25/24 22:00 Temperature Pulse Rate 158 H 225 H 127 H Respiratory Rate 18 Blood Pressure 124/82 Pulse Oximetry 94 Oxygen Delivery Oxygen Flow Rate Fraction of Inspired Oxygen 07/25/24 23:52 07/26/24 00:00 07/26/24 00:00 Temperature 36.8 C Pulse Rate 138 H 121 H Respiratory Rate 18 Blood Pressure 113/61 Pulse Oximetry 94 97 Oxygen Delivery Nasal Cannula Oxygen Flow Rate 2 Fraction of Inspired Oxygen 07/26/24 01:55 07/26/24 01:55 07/26/24 02:00 Temperature Pulse Rate 138 H 138 H 121 H Respiratory Rate 20 Blood Pressure 108/64 Pulse Oximetry Oxygen Delivery Oxygen Flow Rate Fraction of Inspired Oxygen 07/26/24 02:00 07/26/24 02:01 07/26/24 04:00 Temperature Pulse Rate 128 H Respiratory Rate Blood Pressure Pulse Oximetry 97 98 Oxygen Delivery Nasal Cannula Nasal Cannula Oxygen Flow Rate 1 2 Fraction of Inspired Oxygen 07/26/24 04:00 07/26/24 04:00 07/26/24 06:00 Temperature 36.8 C Pulse Rate 125 H 125 H 127 H Respiratory Rate 18 Blood Pressure 108/66 Pulse Oximetry 98 Oxygen Delivery Oxygen Flow Rate Fraction of Inspired Oxygen 07/26/24 07:39 07/26/24 07:39 07/26/24 07:46 Temperature Pulse Rate 113 H 140 H Respiratory Rate 18 18 Blood Pressure Pulse Oximetry 97 Oxygen Delivery High Flow Nasal Cannula Oxygen Flow Rate 4 Fraction of Inspired Oxygen 07/26/24 07:46 07/26/24 07:51 Temperature 36.6 C Pulse Rate 138 H 132 H Respiratory Rate 22 H Blood Pressure 114/66 Pulse Oximetry 97 Oxygen Delivery Oxygen Flow Rate Fraction of Inspired Oxygen Intake/Output Intake/Output: Intake & Output 07/23/24 07/24/24 07/25/24 07/26/24 23:59 23:59 23:59 23:59 Intake Total 2150 1450 350 Output Total 50 700 900 Balance 2100 750 -550 Meds/Results Medications: Active Medications Generic Name Dose Route Start Last Admin Trade Name Freq PRN Reason Stop Dose Admin Acetaminophen 650 mg 07/24/24 15:42 Acetaminophen 325 Mg Tablet PO Q4H PRN Mild Pain (1-3) or Fever Hydrocodone Bitart/Acetaminophen 1 tab 07/24/24 15:42 Hydrocodone/Acetaminophen (*Crx) 5-325 Mg Tablet PO Q4H PRN Pain Rated 4-6 Albuterol/Ipratropium 3 ml 07/25/24 02:00 07/26/24 07:39 Ipratropium 0.5 Mg/Albuterol Sulfate 2.5 Mg Ampul.Neb 3 Ml INHALATION 3 ml Q6HRT NATASHA Administration Apixaban 5 mg 07/25/24 09:00 07/25/24 18:08 Apixaban 5 Mg Tablet BY MOUTH 5 mg BID NATASHA Administration Dextrose 12.5 gm 07/25/24 04:38 07/25/24 04:57 Dextrose 50% 25 Gm/50 Ml Syringe IV PUSH 12.5 gm PRN PRN Administration Hypoglycemia Protocol Docusate Sodium 100 mg 07/25/24 09:00 07/25/24 09:00 Docusate Sodium 100 Mg Capsule PO Not Given DAILY NATASHA Dutasteride 0.5 mg 07/25/24 09:00 07/25/24 08:53 Dutasteride 0.5 Mg Capsule PO 0.5 mg DAILY NATASHA Administration Empagliflozin 25 mg 07/25/24 09:00 07/25/24 09:15 Empagliflozin 25 Mg Tablet BY MOUTH 25 mg DAILY NATASHA Administration Finasteride 5 mg 07/25/24 09:00 07/25/24 09:15 Finasteride 5 Mg Tablet PO 5 mg DAILY NATASHA Administration Fluticasone/Umeclidinium/Vilanterol 1 puff 07/25/24 08:00 07/26/24 07:38 Fluticasone/Umeclidin/Vilanter 100-62.5-25 Mcg Ellipta INHALATION 1 puff DAILYRT NATASHA Administration Furosemide 10 mg 07/25/24 09:00 07/25/24 09:15 Furosemide 10 Mg Tablet PO 10 mg QAM NATASHA Administration Gabapentin 100 mg 07/24/24 19:00 07/25/24 18:06 Gabapentin 100 Mg Capsule PO 100 mg BID NATASHA Administration Glucagon 1 mg 07/25/24 04:38 Glucagon For Inj 1 Mg Vial IM PRN PRN Hypoglycemia Protocol Glucose 15 gm 07/25/24 04:38 Glucose Oral Gel 15 Gm Of Glucse In 37.5 Gm Tube PO PRN PRN Hypoglycemia Protocol Guaifenesin 1,200 mg 07/25/24 09:00 07/25/24 20:34 Guaifenesin 12 Hr 600 Mg Tabcr PO 1,200 mg Q12HR NATASHA Administration Heparin Sodium (Beef Lung) 50 units 07/26/24 09:00 Heparin Flush 50 Units/5 Ml Syringe IV PUSH QAM NATASHA Heparin Sodium (Beef Lung) 50 units 07/25/24 18:45 Heparin Flush 50 Units/5 Ml Syringe IV PUSH PRN PRN after intermittent infusion Heparin Sodium (Beef Lung) 50 units 07/25/24 18:45 Heparin Flush 50 Units/5 Ml Syringe IV PUSH PRN PRN after blood draws Heparin Sodium (Porcine) 500 units 07/25/24 18:45 Heparin Sodium Lock Flush 500 Units/5 Ml Syringe IV PUSH PRN PRN see comments below Ceftriaxone Sodium 1 gm in 50 mls @ 100 mls/hr 07/25/24 18:00 07/25/24 20:59 Rocephin 1 Gm/Ns 50 Ml IVPB Infused Q24H NATASHA Infusion Azithromycin 500 mg in 250 mls @ 250 mls/hr 07/25/24 18:00 07/25/24 21:48 Zithromax IVPB Infused Q24H NATASHA Infusion Dextrose 1,000 mls @ 100 mls/hr 07/25/24 04:38 Dextrose 5% 1,000 Ml IVPB PRN PRN Hypoglycemia Protocol Levothyroxine Sodium 44 mcg 07/25/24 06:30 07/26/24 06:07 Levothyroxine Sodium 44 Mcg Tablet PO 44 mcg DAILY@0630 NATASHA Administration Metoprolol Succinate 12.5 mg 07/25/24 21:00 07/25/24 20:35 Metoprolol Succinate Ext Rel 12.5 Mg Tabcr PO 12.5 mg QHS NATASHA Administration Perflutren Lipid Microsphere 0 ml 07/25/24 12:31 Perflutren Lipid Microspheres 1.5 Ml Vial Diluted To 10 Ml Total Volume IV PUSH 07/28/24 12:31 ONCE PRN adequate visualization Protocol Pravastatin Sodium 40 mg 07/25/24 09:00 07/25/24 08:51 Pravastatin Sodium 20 Mg Tablet BY MOUTH 40 mg DAILY NATASHA Administration Prednisone 40 mg 07/25/24 08:00 07/25/24 18:07 Prednisone 20 Mg Tablet PO 07/30/24 07:59 40 mg DAILY@0800 NATASHA Administration Promethazine HCl 12.5 mg 07/24/24 15:42 Promethazine Hcl 25 Mg/Ml Ampul IV PUSH Q6H PRN Nausea Sodium Chloride 10 ml 07/25/24 22:00 07/26/24 06:08 Central Line Flush IV PUSH 10 ml Q8HR NATASHA Administration Spironolactone 25 mg 07/25/24 09:00 07/25/24 08:53 Spironolactone 25 Mg Tablet PO 25 mg Q48H NATASHA Administration Tamsulosin HCl 0.4 mg 07/25/24 09:00 07/25/24 08:53 Tamsulosin Hcl 0.4 Mg Capsule PO 0.4 mg DAILY NATASHA Administration Radiology Results: ITS Impressions Chest X-Ray 07/25/24 23:14 IMPRESSION: No focal infiltrate or effusion. Stable volume loss within the left hemithorax with left apical scarring, unchanged. Labs Labs: Laboratory Results - last 24 hr 07/25/24 07/25/24 07/26/24 09:42 18:02 06:06 WBC 12.1 H RBC 4.61 Hgb 8.8 L Hct 30.8 L MCV 66.8 L MCH 19.1 L MCHC 28.6 L RDW 18.8 H Plt Count 283 MPV 10.7 H Immature Gran % (Auto) 0.7 H Neut % (Auto) 89.4 H Lymph % (Auto) 3.5 L Mcduffie % (Auto) 6.3 Eos % (Auto) 0.0 Baso % (Auto) 0.1 L Lymph # (Auto) 0.43 L [place]ff[place] # (Auto) 0.8 H Eos # (Auto) 0.0 Baso # (Auto) 0.0 Abs Immat Gran (auto) 0.08 H Absolute Neuts (auto) 10.8 H Absolute Nucleated RBC 0.000 Band Neutrophils % Not Reportable Nucleated RBC % 0.0 Platelet Estimate Adequate Hypochromasia 1+ Anisocytosis 1+ Microcytosis 1+ Target Cells 1+ Ovalocytes 1+ River Cells 1+ Schistocytes None seen Sodium 137 Potassium 4.0 Chloride 109 H Carbon Dioxide 23 Anion Gap 5 BUN 25 H Creatinine 1.26 Estim Creat Clear Calc 36 Estimated GFR 54 L Glucose 104 POC Capillary Glucose 102 151 H Calcium 8.4 Magnesium 2.2 Total Bilirubin 0.3 AST 31 ALT 25 Alkaline Phosphatase 36 L Total Protein 5.7 L Albumin 2.9 L 07/26/24 07:11 WBC RBC Hgb Hct MCV MCH MCHC RDW Plt Count MPV Immature Gran % (Auto) Neut % (Auto) Lymph % (Auto) [place]duffie % (Auto) Eos % (Auto) Baso % (Auto) Lymph # (Auto) [place]duffie # (Auto) Eos # (Auto) Baso # (Auto) Abs Immat Gran (auto) Absolute Neuts (auto) Absolute Nucleated RBC Band Neutrophils % Nucleated RBC % Platelet Estimate Hypochromasia Anisocytosis Microcytosis Target Cells Ovalocytes River Cells Schistocytes Sodium Potassium Chloride Carbon Dioxide Anion Gap BUN Creatinine Estim Creat Clear Calc Estimated GFR Glucose POC Capillary Glucose 97 Calcium Magnesium Total Bilirubin AST ALT Alkaline Phosphatase Total Protein Albumin Quality VTE Prophylaxis VTE prophylaxis: mechanical ordered and pharmacologic ordered
--- NOTE | 2024-07-26 09:08 | WPDHPUPDATE1 ---
History and Physical Update Update Date/Time: 07/26/24 09:08 History and Physical has been reviewed, including an updated exam of the patient. There are NO changes in the patient's condition. Risks, benefits, and alternatives have been discussed and questions answered. Patient agrees to proceed with procedure.
--- NOTE | 2024-07-26 09:28 | P.CDI_ITS ---
CDI Query Clarification Request 1) Please clarify if sepsis has been ruled in or ruled out 2) Hypoxia has been documented, please review the clinical information below and clarify the respiratory diagnosis the patient is being treated for: Hypoxia or hypoxemia without respiratory failure Respiratory distress without respiratory failure Acute respiratory failure with hypoxia Acute respiratory failure with hypercapnia Acute respiratory failure with hypoxia and hypercapnia Acute on chronic respiratory failure with hypoxia Acute on chronic respiratory failure with hypercapnia Acute on chronic respiratory failure with hypoxia and hypercapnia Acute respiratory distress syndrome (ARDS) Chronic respiratory failure with hypoxia Chronic respiratory failure with hypercapnia Chronic respiratory failure with hypoxia and hypercapnia Other explanation clinical findings, please specify Unable to determine 3) Please specify type and acuity of heart failure if known. * Acute * Chronic * Acute on Chronic * Unknown * Systolic * Diastolic * Combined Systolic and Diastolic * Unknown The medical chart reflects the following: Patient is an 84-year-old male who presents ER with shortness of breath. Originally gone to urgent care and was found to be hypoxic with elevated heart rate. No chest pain. Has a wet productive cough worsening over last few weeks. No chest pain. No syncope. Blood pressure initially low. Has history of left upper lobe excision. Shortness of breath is worse with exertion and with lying down. hospitalist documented Plan Hypoxic respiratory failure: Needing oxygen supplementation. Elevated troponin flat trend. Likely related to hypoxia. Will check echocardiogram DVT prophylaxis on apixaban Atrial flutter with rapid ventricular rate ulcerated 146 on arrival. Back to sinus rhythm already. Anemia: Recent EGD and colonoscopy negative Hypoglycemia: Not on any hypoglycemic agent. Will continue to monitor Sepsis with white cell count tachycardia lactic acidosis. Received IV fluid resuscitation. Follow blood culture. 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 Culture is continuously monitored for a total of 120 hours incubation. <Bhargavi Holliday RN - Last Filed: 07/26/24 09:35> Clarified Diagnosis Clarified Diagnosis: Sepsis ruled out Hypoxia without resp failure Acute on chronic heart failure <Elvis A. Marie, MD - Last Filed: 07/26/24 10:22>
--- NOTE | 2024-07-26 09:44 | PC.NURSE ---
Pt brought to [facility] for cardioversion and EKG performed. This RN checked MAR to see if morning dose of eliquis had been given and noticed pt missed a dose of eliquis yesterday. This RN asked pt is he had been taking his eliquis regularly and he stated that he was told to stop taking it Monday for a different procedure. MD Parisi stated to cancel procedure and bring pt back to the floor.
[2024-07-26] MEDS: GABAPENTIN 100 MG CAPSULE PO ×2 (10:15→17:35)
[2024-07-26] MEDS: DUTASTERIDE 0.5 MG CAPSULE PO (10:16)
[2024-07-26] MEDS: EMPAGLIFLOZIN 25 MG TABLET BY MOUTH (10:16)
[2024-07-26] MEDS: DOCUSATE SODIUM 100 MG CAPSULE PO (10:16)
[2024-07-26] MEDS: TAMSULOSIN HCL 0.4 MG CAPSULE PO (10:17)
[2024-07-26] MEDS: FUROSEMIDE 10 MG TABLET PO (10:17)
[2024-07-26] MEDS: PRAVASTATIN SODIUM 20 MG TABLET 40 MG BY MOUTH (10:17)
[2024-07-26] MEDS: FINASTERIDE 5 MG TABLET PO (10:22)
[2024-07-26] MEDS: APIXABAN 5 MG TABLET BY MOUTH ×2 (10:22→17:36)
--- NOTE | 2024-07-26 11:31 | P.CONPL_ITS ---
Assessment and Plan Assessment and plan (1) COPD exacerbation: Code(s): J44.1 - Chronic obstructive pulmonary disease with (acute) exacerbation Status: Acute Assessment and Plan: Patient with a 51 pack year tobacco use, quit 2007, also exposed to secondhand smoke from both of his parents. Tells me he was diagnosed 5-6 years ago with a breathing test but I do not have these results. CT scan of the chest from 04/05/2021 demonstrates severe apical greater than basilar predominant panlobular emphysema. Prior to admission he was not on any supplemental oxygen. He has dyspnea on exertion half a block and chronically produces phlegm at 2 to 3 times a day described aar and yellow. White blood cell count 519 2024 9.0 was 0% eosinophils. White blood cell count on 07/24/2024 18.9 with 0% eosinophils. He is maintained on trelegy inhaler. Patient presents with worsening shortness of breath at rest and with activity, increased cough with no change in his baseline phlegm. He is treated for COPD exacerbation with Solu-Medrol, bronchodilators, ceftriaxone and azithromycin for possible pneumonia. 07/26/2024: Currently the patient tells me he is better. States he is breathing 80% back to his baseline. He has no cough, or fever. His phlegm production is the same as it was when he presented. Currently he is on 1 L nasal cannula saturations 100%. His white blood cell count is 12.1, his creatinine is 1.26. He currently is tachycardic at 1:45 a.m. and an amiodarone her own drip is being started. He tells me he has phlegm that he is unable to expectorate. I recommended a D-dimer test and at this time he declines. Plan: Agree with treatment for COPD exacerbation. Currently the patient has no wheezing and is tachycardic with initiation of amiodarone drip for a flutter with RVR. Will continue prednisone 40 mg p.o. q.day, day 3 total systemic steroids. given his tachyarrythmias I will discontinue beta agonist at this time and try to manage him with muscarinic antagonists. I will discontinue his trelegy and his DuoNebs and place him on ipratropium nebulizers q.4 hours. If the patient's bronchospasm cannot be controlled with ipratropium nebulizers would add levalbuterol nebulizers rather than albuterol. I will continue guaifenesin 1200 mg p.o. b.i.d.. I will add a [place] flutter valve. Goal saturation 90-94%. Currently the patient is on 1 L with saturations 100%. I will leave him on oxygen as his heart rate is 140-150 but will then wean his oxygen accordingly. I will check an alpha 1 anti trypsin genotype and level on 07/27/24. I will check an ABG to assess for hypercarbic respiratory failure. The patient is being treated for a pneumonia with ceftriaxone started on 07/24/2024, day 3. He was given azithromycin on 07/24/2022. I will start level Floxin 750 mg Q 48 hours given his creatinine clearance, today will be day 3 atypical coverage. I will order CT scan of the chest to assess for focal infiltrates. COVID influenza, RSV RT PCR assay negative. I will check a procalcitonin. I will send the respiratory pathogen panel, urine for Legionella antigen, urine for pneumococcal antigen, and a serum mycoplasma IgM. If there is no focal infiltrate consistent with pneumonia on his CT scan will consider deescalating just to levofloxacin alone for tracheobronchitis. patient currently has a tachy arrhythmia, Cardiology and hospitalist teams are following. Cumulative since admission he is positive 2.3 L. BNP was 7640 on 07/24. I will repeat a BNP. Lasix has been held. Of note patient is on Lasix 10 mg a day at home. Recommend diuresis as tolerated by his cardiac and renal systems per antenna engineer and hospitalist team. Discussed with Dr. Marie, we will follow with you. (2) Pulmonary embolism: Qualifiers: Pulmonary embolism type: unspecified Chronicity: unspecified Acute cor pulmonale presence: unspecified Qualified Code(s): I26.99 - Other pulmonary embolism without acute cor pulmonale Code(s): I26.99 - Other pulmonary embolism without acute cor pulmonale Status: Acute Assessment and Plan: Patient with a pulmonary embolism in 04/05/2021. Patient has history of lung cancer and tongue cancer. Currently he is anticoagulated with Eliquis. Plan: I ordered a D-dimer but at this time the patient is declining. Since he is going to be anticoagulated with eliquis will not order CT angiogram of the chest currently. (3) Metastatic lung cancer (metastasis from lung to other site): Qualifiers: Laterality: unspecified laterality Qualified Code(s): C34.90 - Malignant neoplasm of unspecified part of unspecified bronchus or lung Code(s): C34.90 - Malignant neoplasm of unspecified part of unspecified bronchus or lung Status: Acute Assessment and Plan: Regarding his lung cancer: Last office visit note I have is from 05/21/2024, Dr. 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 Both the lung lesion and the ipsilateral lymph node had increased FDG uptake on 10/25/2016. Came to [facility] on 11/17/2016 for further management. Carboplatinum plus Pemetrexed x4 cycles ending 02/28/2017. Thoracic radiotherapy from 03/23/2017-04/12/2017. Carboplatinum plus Pemetrexed x4 cycles ending 03/06/2018. Maintenance pemetrexed times 30 cycles ending 12/24/2019. Docetaxel X7 cycles ending 03/09/2021. plan for CT including the neck on 08/10/2024 and return to clinic on 08/20/2024. plan: Patient tells me he follows up with [facility] Oncology with a CT scan on 08/15/2024 and clinic visit on 08/20/2024 History of Present Illness History of Present Illness Consult date: 07/26/24 Chief complaint: PNEUMONIA,HYPOXIA,ELEVATED TROP Narrative: 07/26/2024: This is a new pulmonary consult for COPD exacerbation 84-year-old male with past medical history HFpEF, hypertension, hyperlipidemia, COPD, pulmonary embolism, pericardial tamponade status post drain placement 04/06/2021, arthritis, head and neck cancer, hypothyroidism, vitamin-D deficiency, depression, anxiety, lung cancer, squamous cell lung cancer, BPH presents with chief complaints of shortness of breath. Regarding his lung cancer: Last office visit note I have is from 05/21/2024, Dr. 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 Both the lung lesion and the ipsilateral lymph node had increased FDG uptake on 10/25/2016. Came to site [facility] on 11/17/2016 for further management. Carboplatinum plus Pemetrexed x4 cycles ending 02/28/2017. Thoracic radiotherapy from 03/23/2017-04/12/2017. Carboplatinum plus Pemetrexed x4 cycles ending 03/06/2018. Maintenancepemetrexed times 30 cycles ending 12/24/2019. Docetaxel X7 cycles ending 03/09/2021. regarding his squamous cell lung cancer: Cetuximab x4 cycles ending 03/26/2020. Concurrent radiation from 03/02/2020 through 03/20/2020. Pembrolizumab x6 cycles ending 09/29/2020. His main problem on 05/21/2024 was shortness of breath on exertion. [place] this was related to a COPD exacerbation and given prednisone 40 mg a day x5 days. CT of the neck on 08/10/2024 and return to clinic on 08/20/2024. Regarding his COPD tells me he was diagnosed 5-6 years ago and has been maintained on trilogy inhaler. He is not on oxygen at rest, with activity or with sleep. One year ago he tells me he could walk 1 block. A few weeks ago when he was at his baseline he tells me he can walk half a block. He has chronic phlegm production 2 to 3 times a day described as clear and yellow. Patient smoked 1 pack per day from 1003-9616 for total of 51 pack years. Patient was exposed to secondhand smoke from both of his parents but none since. 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 He denies any sand blasting, welding, asbestos were, professional painting, steel tubing mill setter, mining, construction work. Currently Patient tells me he was getting a bowel prep on 07/21/2024 for colonoscopy and that he was having to walk back and forth to the bathroom and this made him short of breath. he says he was otherwise fine with no respiratory issues. Patient had a colonoscopy in [facility] on 07/22/2024 and was discharged from these procedures in no respiratory distress without any respiratory complaints. On 07/23/2024 the patient felt that his breathing was stressed. He had shortness of breath at rest and with aches he of it he. He had a increased cough but no phlegm production. He denied fever. He called his PCP and was told to go to the emergency room. 07/24/2024: Patient presented to the emergency room with shortness of breath, Productive cough, worsening dyspnea on exertion. Blood pressure 99/72, heart rate 145, room air saturations 88%. Placed on 2 L with saturations 98%. White blood cell count 18.9, eosinophils 0%. Creatinine 1.58, BNP 7640. chest x-ray without focal infiltrate. Chest x-ray with volume loss on the left, right- sided port increased interstitial infiltrates at the bases. COVID, influenza, RSV RT PCR assay negative. Patient was in a flutter with RVR. patient was treated with Ceftriaxone and azithromycin for pneumonia, Solu-Medrol and bronchodilators for COPD exacerbation. patient required 2-4 L nasal cannula 07/25/2024: Patient developed a flutter with RVR, Eliquis restarted. patient required 1-4 L nasal cannula throughout the day 07/26/2024: Currently the patient tells me he is better. States he is breathing 80% back to his baseline. He has no cough, or fever. His phlegm production is the same as it was when he presented. Currently he is on 1 L nasal cannula saturations 100%. His white blood cell count is 12.1, his creatinine is 1.26. He currently is tachycardic at 1:45 a.m. and an amiodarone her own drip is being started. He tells me he has phlegm that he is unable to expectorate. I recommended a D-dimer test and at this time he declines. DATA: 07/25/2024: CHEST RADIOGRAPH CLINICAL HISTORY: a fib . TECHNIQUE: Single portable view of the chest. FINDINGS Right internal jugular central venous port catheter with its tip projecting over the proximal right atrium. The remainder of the cardiomediastinal silhouette is otherwise unremarkable. Volume loss within the left hemithorax with left apical scarring, unchanged from prior. Severe centrilobular emphysematous disease with apical bulla suspected. Increased interstitial markings detected within the bilateral lung bases, unchanged from previous examination performed approximately 24 hours earlier. No pleural effusion is appreciated. IMPRESSION: No focal infiltrate or effusion. Stable volume loss within the left hemithorax with left apical scarring, unchanged. 04/05/2021: EXAMINATION: CTA chest PE protocol DATE: 04/05/2021 07:16 [facility] INKER INDICATION: Shortness of breath. Elevated d-dimer. TECHNIQUE: Computed tomographic angiography (CTA) of the chest was performed with 100 mL Omnipaque-350 intravenous contrast. The dose-length product was 487.85 mGy-cm. Maximum intensity projection 3D-reconstructions of the aorta and other arteries were constructed by the technologist on a separate workstation. COMPARISON: CT dated 10/11/2016. FINDINGS: There is right upper lobe pulmonary embolism, age indeterminate. There is a large pericardial effusion. Small pleural effusions. There is atherosclerosis of the aorta. There is a hyperdense right renal lesion which has increased in size compared with prior study severe emphysema. There is scarring at the lung apices. There is fibrosis in the lower lungs with underlying atelectasis. There are scattered areas of consolidation. Cannot exclude acute pneumonia. There is linear appearance to scarring in the left thorax medially, possibly radiation therapy.. Recommend correlation with ultrasound. There are nodular densities in the right upper and lower lobe laterally on the largest measuring 11 mm. Cannot exclude malignancy. IMPRESSION: 1. Pulmonary embolism right upper and lower lobes pulmonary artery, age indeterminate. 2: Irregular pleural-based nodules right upper lobe. Cannot exclude malignancy. Consider correlation with pet/CT scan or percutaneous biopsy. 3: Moderate pericardial effusion. Small pleural effusions. 4: Emphysema. 5: Hyperdense right renal lesion, enlarged since prior examination. Recommend correlation with ultrasound. Review of Systems 2 Constitutional: Constitutional: Reports no additional constitutional complaints Eyes: Eyes: Reports no additional eye complaints ENT: Reports system reviewed and no additional complaints, except as documented Cardiovascular: Cardiovascular: Reports no additional cardiovascular complaints Respiratory: Respiratory: Reports no additional respiratory complaints Gastrointestinal: Gastrointestinal: Reports no additional gastrointestinal complaints Musculoskeletal: Musculoskeletal: Reports no additional musculoskeletal complaints Neurologic: Reports system reviewed and no additional complaints, except as documented Psychiatric: Psychiatric: Reports no additional psychiatric complaints Endocrine: Endocrine: Reports no additional endocrine complaints Hematologic/Lymphatic: Hematologic/Lymphatic: Reports no additional hematologic/lymphatic complaints Allergic/Immunologic: Allergic/Immunologic: Reports no additional allergic/immunologic complaints [facility] Past Medical History Medical History (Updated 07/26/24 @ 09:13 by Brittani Parisi MD) Cancer of lung, throat, head, neck and tongue Occult blood in stools Low hemoglobin Chronic obstructive pulmonary disease, unspecified Arthritis Right groin pain Head and neck cancer Heart failure with preserved ejection fraction Encounter for Medicare annual wellness exam [place] (dyspnea on exertion) Lateral epicondylitis of right elbow BMI 21.0-21.9, adult Right leg pain Hypothyroidism (acquired) Dyspnea Injury of lip Vitamin D deficiency Borderline abnormal TFTs Palpitations Peripheral neuropathy Depression PAC (premature atrial contraction) SVT (supraventricular tachycardia) Ectopic beats Dry mouth BMI 23.0-23.9, adult Follow up BMI 22.0-22.9, adult Constipation Urinary retention BMI 24.0-24.9, adult Squamous cell cancer of tongue Metastatic lung cancer (metastasis from lung to other site) Anxiety BMI 26.0-26.9,adult Dysphagia Cellulitis Thrush Odynophagia Chronic sore throat Encounter for routine adult health examination with abnormal findings BMI 27.0-27.9,adult Essential (primary) hypertension History of tobacco use Hx of cancer of lung Malignant neoplasm of hilus of lung Pulmonary emphysema Insomnia Pedal edema Hyperlipidemia Benign essential hypertension Encounter for routine adult health examination without abnormal findings On detention drug therapy BPH (benign prostatic hyperplasia) Surgical History Surgical History History of lobectomy of lung 2008 removal of upper lobe left lung Family History Family History Sibling Family history of allergic disorder Father Family history of emphysema Family history of chronic obstructive pulmonary disease Mother Family history of emphysema, Onset Age: 89 Family history of malignant neoplasm of breast in first degree relative Family history of malignant neoplasm of breast Social History Social History Smoking packs per day: 1.5 Smoking cigarettes per day: 30.0 Years smoked: 20 Smoking pack-years: 30.00 Smoking status: Former smoker Tobacco type: cigarettes Second hand tobacco smoke exposure: No Smoking end date: 07/08/07 Additional smoking assessment comments: quit 2007 Alcohol intake: former Alcohol use details: None since 1995 Substance use: never Substance use type: does not use Do You Feel Safe in your Home?: Yes Lack of Transportation: No Lack of Food: Never True Current Housing: I Have Housing Concerned About Future Housing: No Difficulty Paying Gas/Electric Bills: No Difficulty Paying for Meds: No Currently Unemployed: No Education: Master's Degree or Higher Difficulty w/ Childcare or Family Care: No Living arrangements: with family Gender identity (if verbalized by the patient): Male Spiritual care concerns: Yes Agree to blood products: Yes Meds Home Medications and Allergies Home Medications ?Medication ?Instructions ?Recorded ?Confirmed ?Type lidocaine-prilocaine 2.5 %-2.5 % 1 applic topical ONCE PRN for 01/09/19 07/24/24 History topical cream ramona cath during chemo tamsulosin 0.4 mg capsule 0.4 mg PO DAILY 01/23/19 07/24/24 History finasteride 5 mg tablet 5 mg PO DAILY 05/27/20 07/24/24 History gabapentin 100 mg capsule 100 mg PO Q12H 07/01/20 07/24/24 History dexamethasone 4 mg tablet 8 mg PO DAILY PRN chemo 10/14/20 07/24/24 History Eliquis 5 mg PO BID 04/04/21 07/24/24 History cholecalciferol (vitamin D3) 50 50 mcg PO DAILY 04/05/22 07/24/24 History mcg (2,000 unit) capsule dapagliflozin propanediol 10 mg 10 mg PO DAILY 07/24/23 07/24/24 History tablet (Farxiga) spironolactone 25 mg tablet 25 mg PO .QOD 09/26/23 07/24/24 History Nebulizer Machine #1 device 12/20/23 07/24/24 Rx furosemide 20 mg tablet 10 mg (1/2 x 20 mg) PO QAM #90 tabs 01/08/24 07/24/24 Rx albuterol sulfate 90 mcg/actuation See Rx Instructions .Route 01/11/24 07/24/24 Rx aerosol inhaler .COMPLEX #51 grams metoprolol succinate 25 mg 12.5 mg PO DAILY 02/06/24 07/24/24 History tablet,extended release 24 hr pravastatin 40 mg tablet See Rx Instructions .Route 03/08/24 07/24/24 Rx .COMPLEX #90 tabs albuterol sulfate 2.5 mg/3 mL 2.5 mg (3 mL) inhalation Q4-6H PRN 04/22/24 07/24/24 Rx (0.083 %) solution for nebulization shortness of breath or wheezing #90 mL fluticasone fur. 100 mcg-umeclid See Rx Instructions .Route 07/15/24 07/24/24 Rx 62.5 mcg-vilant 25 mcg .COMPLEX #180 grams inhalat.powder (Trelegy Ellipta) cyanocobalamin (vitamin B-12) 1,000 mcg PO DAILY 07/16/24 07/24/24 History 1,000 mcg tablet (Vitamin B-12) folic acid 400 mcg tablet 400 mcg PO DAILY 07/16/24 07/24/24 History levothyroxine 88 mcg tablet 44 mcg PO DAILY 07/16/24 07/24/24 History (Synthroid) acetaminophen 325 mg tablet 325 mg PO Q6H PRN pain 07/18/24 07/24/24 History (Tactinal) dutasteride 0.5 mg capsule 0.5 mg PO .daily 07/18/24 07/24/24 History ferrous sulfate 325 mg (65 mg 325 mg PO BID 07/23/24 07/24/24 History iron) tablet,delayed release Allergies Allergy/AdvReac Type Severity Reaction Status Date / Time No Known Allergies Allergy Verified 07/18/24 13:49 Vital Signs Vital Signs - 24 hr 07/25/24 11:57 07/25/24 12:00 07/25/24 12:00 Temperature 36.7 C Pulse Rate 72 85 Respiratory Rate 20 Blood Pressure 149/66 H Pulse Oximetry 100 99 Oxygen Delivery Nasal Cannula Oxygen Flow Rate 2 Fraction of Inspired Oxygen 07/25/24 14:00 07/25/24 14:11 07/25/24 14:11 Temperature Pulse Rate 75 76 Respiratory Rate 20 Blood Pressure Pulse Oximetry 99 Oxygen Delivery Nasal Cannula Oxygen Flow Rate 4 Fraction of Inspired Oxygen 07/25/24 14:23 07/25/24 15:30 07/25/24 15:54 Temperature Pulse Rate 84 Respiratory Rate 20 Blood Pressure Pulse Oximetry 98 96 Oxygen Delivery Nasal Cannula Nasal Cannula Oxygen Flow Rate 2 2 Fraction of Inspired Oxygen 07/25/24 15:55 07/25/24 16:23 07/25/24 18:00 Temperature 36.7 C Pulse Rate 84 94 97 Respiratory Rate 21 H Blood Pressure 138/74 Pulse Oximetry 99 Oxygen Delivery Oxygen Flow Rate Fraction of Inspired Oxygen 07/25/24 18:07 07/25/24 19:52 07/25/24 19:54 Temperature Pulse Rate 98 88 88 Respiratory Rate 20 20 Blood Pressure Pulse Oximetry 98 Oxygen Delivery Nasal Cannula Oxygen Flow Rate 1 Fraction of Inspired Oxygen 07/25/24 20:00 07/25/24 20:00 07/25/24 20:04 Temperature 36.8 C Pulse Rate 94 98 85 Respiratory Rate 18 20 Blood Pressure 122/85 Pulse Oximetry 97 Oxygen Delivery Oxygen Flow Rate Fraction of Inspired Oxygen 07/25/24 20:30 07/25/24 20:35 07/25/24 20:50 Temperature Pulse Rate 159 H 158 H Respiratory Rate 18 Blood Pressure 124/82 Pulse Oximetry 100 94 Oxygen Delivery Nasal Cannula Oxygen Flow Rate 2 Fraction of Inspired Oxygen 07/25/24 20:55 07/25/24 22:00 07/25/24 23:52 Temperature Pulse Rate 225 H 127 H Respiratory Rate Blood Pressure Pulse Oximetry 94 Oxygen Delivery Nasal Cannula Oxygen Flow Rate 2 Fraction of Inspired Oxygen 07/26/24 00:00 07/26/24 00:00 07/26/24 01:55 Temperature 36.8 C Pulse Rate 138 H 121 H 138 H Respiratory Rate 18 Blood Pressure 113/61 Pulse Oximetry 97 Oxygen Delivery Oxygen Flow Rate Fraction of Inspired Oxygen 07/26/24 01:55 07/26/24 02:00 07/26/24 02:00 Temperature Pulse Rate 138 H 121 H 128 H Respiratory Rate 20 Blood Pressure 108/64 Pulse Oximetry Oxygen Delivery Oxygen Flow Rate Fraction of Inspired Oxygen 07/26/24 02:01 07/26/24 04:00 07/26/24 04:00 Temperature 36.8 C Pulse Rate 125 H Respiratory Rate 18 Blood Pressure 108/66 Pulse Oximetry 97 98 98 Oxygen Delivery Nasal Cannula Nasal Cannula Oxygen Flow Rate 1 2 Fraction of Inspired Oxygen 24 07/26/24 04:00 07/26/24 06:00 07/26/24 07:39 Temperature Pulse Rate 125 H 127 H Respiratory Rate Blood Pressure Pulse Oximetry 97 Oxygen Delivery High Flow Nasal Cannula Oxygen Flow Rate 4 Fraction of Inspired Oxygen 07/26/24 07:39 07/26/24 07:46 07/26/24 07:46 Temperature Pulse Rate 113 H 140 H 138 H Respiratory Rate 18 18 Blood Pressure Pulse Oximetry Oxygen Delivery Oxygen Flow Rate Fraction of Inspired Oxygen 07/26/24 07:51 07/26/24 08:00 07/26/24 08:00 Temperature 36.6 C Pulse Rate 132 H 135 H Respiratory Rate 22 H Blood Pressure 114/66 Pulse Oximetry 97 99 Oxygen Delivery Nasal Cannula Oxygen Flow Rate 2 Fraction of Inspired Oxygen 07/26/24 10:00 Temperature Pulse Rate 136 H Respiratory Rate Blood Pressure Pulse Oximetry Oxygen Delivery Oxygen Flow Rate Fraction of Inspired Oxygen Exam 2 Const: General: cooperative, healthy appearing and comfortable O rientation/consciousness: oriented to person, oriented to place and oriented to time HENMT: Head: normal to inspection Ears: hearing grossly normal bilaterally Eyes: General: appearance normal, both eyes and all related structures Neck: Neck: normal visual inspection Chest: Chest palpation & inspection: normal inspection of the chest Resp: Effort & Inspection: normal respiratory effort and able to speak in complete sentences Auscultation: crackles, no rales, no rhonchi, no wheezes and lung sounds not diminished Cardio: Jugular venous distension: no JVD GI: Inspection: normal to inspection GI Palp: No abdominal tenderness Skin: General skin exam: normal color Neuro: General: oriented to person, oriented to place and oriented to time Extrem: General: normal to inspection Psych: Appearance: grossly normal Results Laboratory Findings 07/26/24 06:06 07/26/24 06:06 ABG, PT/INR, D-dimer: PT/INR, D-dimer PT 16.3 Seconds (11.1-14.7) H 07/24/24 14:14 INR 1.3 07/24/24 14:14 Abnormal lab findings: Abnormal Labs 07/24/24 07/24/24 07/24/24 14:14 14:20 17:04 WBC 18.9 H RBC Hgb 11.3 L Hct 40.1 L MCV 67.1 L MCH 18.9 L MCHC 28.2 L RDW 20.0 H MPV Immature Gran % (Auto) 0.8 H Neut % (Auto) 86.8 H Lymph % (Auto) 2.9 L [place] % (Auto) 9.4 H Baso % (Auto) 0.1 L Lymph # (Auto) 0.54 L [place] # (Auto) 1.8 H Abs Immat Gran (auto) 0.16 H Absolute Neuts (auto) 16.4 H PT 16.3 H Chloride Carbon Dioxide BUN 25 H Creatinine 1.58 H Estimated GFR 42 L Glucose POC Capillary Glucose Lactic Acid 2.5 H Calcium Alkaline Phosphatase Troponin I 0.098 H* 0.102 H* NT-Pro-B Natriuret Pep 7640 H Total Protein Albumin 07/24/24 07/25/24 07/25/24 20:29 03:40 18:02 WBC 13.0 H RBC 4.58 L Hgb 8.7 L Hct 31.3 L MCV 68.3 L MCH 19.0 L MCHC 27.8 L RDW 19.1 H MPV 11.1 H Immature Gran % (Auto) Neut % (Auto) 83.2 H Lymph % (Auto) 5.6 L [place] % (Auto) 10.6 H Baso % (Auto) Lymph # (Auto) 0.73 L [place] # (Auto) 1.4 H Abs Immat Gran (auto) 0.05 H Absolute Neuts (auto) 10.9 H PT Chloride 112 H Carbon Dioxide 19 L BUN 22 H Creatinine Estimated GFR 53 L Glucose 51 L* POC Capillary Glucose 151 H Lactic Acid Calcium 8.2 L Alkaline Phosphatase Troponin I 0.107 H* NT-Pro-B Natriuret Pep Total Protein Albumin 07/26/24 06:06 WBC 12.1 H RBC Hgb 8.8 L Hct 30.8 L MCV 66.8 L MCH 19.1 L MCHC 28.6 L RDW 18.8 H MPV 10.7 H Immature Gran % (Auto) 0.7 H Neut % (Auto) 89.4 H Lymph % (Auto) 3.5 L [place] % (Auto) Baso % (Auto) 0.1 L Lymph # (Auto) 0.43 L [place] # (Auto) 0.8 H Abs Immat Gran (auto) 0.08 H Absolute Neuts (auto) 10.8 H PT Chloride 109 H Carbon Dioxide BUN 25 H Creatinine Estimated GFR 54 L Glucose POC Capillary Glucose Lactic Acid Calcium Alkaline Phosphatase 36 L Troponin I NT-Pro-B Natriuret Pep Total Protein 5.7 L Albumin 2.9 L Diagnostic Findings Additional studies: ITS Impressions Chest X-Ray 07/24/24 15:16 IMPRESSION: Chronic interstitial change with left-sided volume loss, without focal infiltrate or effusion. Chest X-Ray 07/25/24 23:14
--- NOTE | 2024-07-26 11:32 | PC.NURSE ---
Pt having tachycardia HR 135-140. at bedside at 0800 to discuss treatment options. Initially decided to try a cardioversion. Pt was taken to the cath laboratory technician around 9:45. It was discovered there that the patient had not taken his Eliquis last week in preparation for an outpatient procedure. Pt brought back to room 202. Cardiology came back to bedside discuss plan with pt. Decision made to try an amioodarone drip. Awaiting Dr. Parisi to enter orders
[2024-07-26] MEDS: PERFLUTREN LIPID MICROSPHERES 1.5 ML VIAL DILUTED TO 10 ML TOTAL VOLUME IV PUSH (11:45)
--- NOTE | 2024-07-26 12:22 | IVDEFINITY ---
Prior to administration of IV Definity the patient was educated on the risks and benefits of the imaging enhancing agent including potential adverse side effects. The patient verbalized understanding. Allergies were verified. No exclusion criteria were identified and at least one of the following inclusion criteria were met: 1) physician request, 2) patient technically difficult to image (per the [place] [employer] guidelines of two or more segments not discernable within the apical view), or 3) questionable left ventricular function. ?
--- NOTE | 2024-07-26 13:12 | PC.NURSE ---
Before starting amiodarone, pt became hypotensive. 84/49, HR 140. Pt is asymtomatic. Called Dr. Parisi. Awaiting call back
--- NOTE | 2024-07-26 13:17 | PC.NURSE ---
spoke with Dr. Marie to report hypotension and HR of 140. Order received to give 100 mL bolus of normal saline.
[2024-07-26] MEDS: SODIUM CHLORIDE 0.9% IV 1,000 ML 150 ML IV CONT (13:45)
[2024-07-26 13:46] LABS: Alveolar/Arterial O2 Gradient 46.3 mmHg; Fractional Inspired Oxygen 24 %; HCO3 ABG 24.3 mEq/l (22.0-26.0); Oxygen Content ABG 14.7 %vol (16.0-22.0); Oxygen Saturation ABG 95.6 % (95.0-100.0); PCO2 ABG 39.6 mmHg (35.0-45.0); PO2 ABG 77.7 mmHg (80.0-100.0); PO2 FiO2 Ratio Arterial Blood 3.24 %
[2024-07-26 13:51] LABS: Liters per Minute 1.0 LPM; Modified Allen's Test Pass; Site Drawn RIGHT RADIAL
[2024-07-26 14:09] LABS: NT Pro B Type Natriuretic Pept 8610 pg/mL (19.9-100)
[2024-07-26 14:16] LABS: Procalcitonin 1.7 ng/mL
[2024-07-26] MEDS: levoFLOXacin 750 MG/D5W 150 ML 750 MG/150 ML BAG 100 MG IVPB (16:04)
--- NOTE | 2024-07-26 16:14 | PC.NURSE ---
Dr. Parisi ok with starting Amiodarone drip. Pt started on IV fluids
--- NOTE | 2024-07-26 16:15 | PC.NURSE ---
Dr. Parisi updated on pt's sustained tachycardia of 135. No new orders, continue michel guillaume
[2024-07-26] MEDS: IPRATROPIUM BR 0.02% INH SOLN 0.5 MG/2.5 ML VIAL INHALATION ×3 (17:20→23:22)
--- NOTE | 2024-07-26 18:50 | PC.NURSE ---
Called the answering service of Dr. Hoffman at [phone] to report continued increased heart rate. Awaiting callback
--- NOTE | 2024-07-26 19:16 | PC.NURSE ---
Dr. Hoffman updated with HR of 135, and BP of 95/62. Continue Amio drip at a rate if 1mg/min. No additional meds for rate control at this time
[2024-07-26] MEDS: guaiFENesin 12 HR 600 MG TABCR 1200 MG PO (21:39)
[2024-07-26] MEDS: METOPROLOL SUCCINATE EXT REL 12.5 MG TABCR PO (21:40)
[2024-07-27] VITALS (32 sets, daily range): BP systolic 111–135; BP diastolic 56–80; PULSE 70–134; RESP 17–21; TEMP 36–36.8; O2SAT 91–100
[2024-07-27] MEDS: IPRATROPIUM BR 0.02% INH SOLN 0.5 MG/2.5 ML VIAL INHALATION ×4 (04:41→20:31)
[2024-07-27] MEDS: LEVOTHYROXINE SODIUM PO (06:00)
[2024-07-27 06:05] LABS: Hematocrit 32.3 % (42.0-52.0); Hemoglobin 9.2 g/dL (14.0-18.0); Mean Corpuscular HGB Conc 28.5 g/dl (32-36); Mean Corpuscular Hemoglobin 19.2 pg (26-34); Mean Corpuscular Volume 67.3 fl (80-100); Platelet Count Result 301 k/mm3 (150-375); Red Blood Count 4.80 M/mm3 (4.6-6.20); White Blood Count 12.3 K/mm3 (4.5-10.0)
[2024-07-27] MEDS: CENTRAL LINE FLUSH 10 ML IV PUSH ×3 (07:17→21:00)
--- NOTE | 2024-07-27 07:51 | P.PNIM_ITS ---
Progress Note: A&P Assessment and Plan (1) COPD exacerbation: Code(s): J44.1 - Chronic obstructive pulmonary disease with (acute) exacerbation Status: Acute Assessment and Plan: Gradually gettinn g better Continue azithromycin Rocephin DuoNeb q.6 Solu-Medrol x1 followed by prednisone Guaifenesin incentive spirometer Chest x-ray with chronic interstitial change with left-sided volume loss unchanged from prior without focal infiltrate or effusion. Pulmonary consult noted Scheduled for CT chest today. (2) Atrial fibrillation with RVR: Code(s): I48.91 - Unspecified atrial fibrillation Status: Acute Assessment and Plan: Cardio consult noted. Started on amiodarone Will monitor (3) Heart failure with preserved ejection fraction: Qualifiers: Heart failure chronicity: unspecified Qualified Code(s): I50.30 - Unspecified diastolic (congestive) heart failure Code(s): I50.30 - Unspecified diastolic (congestive) heart failure Status: Acute Assessment and Plan: Patient given 3 L IV fluids and emergency room for elective acidosis, currently euvolemic Diuretics restarted Monitor for fluid overload Improving, will monitor (4) Hyperlipidemia: Qualifiers: Hyperlipidemia type: mixed hyperlipidemia Qualified Code(s): E78.2 - Mixed hyperlipidemia Code(s): E78.5 - Hyperlipidemia, unspecified Status: Acute Assessment and Plan: Home medication (5) Hypothyroidism (acquired): Code(s): E03.9 - Hypothyroidism, unspecified Status: Acute Assessment and Plan: Home medications (6) BPH (benign prostatic hyperplasia): Qualifiers: Lower urinary tract symptom presence: symptoms present Lower urinary tract symptom detail: unspecified Qualified Code(s): N40.1 - Benign prostatic hyperplasia with lower urinary tract symptoms Code(s): N40.0 - Benign prostatic hyperplasia without lower urinary tract symptoms Status: Acute Assessment and Plan: Continue home meds Plan Hypoxic respiratory failure: Needing oxygen supplementation. Elevated troponin flat trend. Likely related to hypoxia. Will check echocardiogram DVT prophylaxis on apixaban Atrial flutter with rapid ventricular rate ulcerated 146 on arrival. Back to sinus rhythm already. Anemia: Recent EGD and colonoscopy negative Hypoglycemia: Not on any hypoglycemic agent. Will continue to monitor Sepsis with white cell count tachycardia lactic acidosis. Received IV fluid resuscitation. Follow blood culture. Subjective Date/time seen: 07/27/24 07:51 Interval history: Patient was seen during the morning today.. Pain control. Mild shortness of breath or chest pain. No abdominal pain, no nausea or vomiting. Review of Systems Review of Systems: 12 systems were reviewed and are negativ e except for as per HPI. Exam Narrative: General: well appearing, appears stated age. 88 acute distress HEENT: normocephalic, atraumatic. Mucous membranes moist. Respiratory: Diminished lung sounds bilaterally no respiratory distress Cardiovascular: Regular rate and rhythm, normal S1-S2 upon ascultation. Abdomen: Soft, round, no pulsatile masses, nondistended and nontender. No rebound, no guarding. Extremities: No cyanosis, clubbing, or edema present. Pulses are palpable 2/2. Active ROM to all four extremities. Neuro: Alert and orientated x 4. PERRLA. Cranial nerves 2-12 intact without focal deficit. Skin: Warm, dry, and intact, without rash, erythema, or lesion. Psych: pleasant, cooperative, normal speech, normal affect, no hallucinations, no dysarthia Objective Data Vital Signs Vital Signs: Vital Signs - 24 hr 07/26/24 08:00 07/26/24 08:00 07/26/24 10:00 Temperature Pulse Rate 135 H 136 H Respiratory Rate Blood Pressure Pulse Oximetry 99 Oxygen Delivery Nasal Cannula Oxygen Flow Rate 2 Fraction of Inspired Oxygen 07/26/24 11:59 07/26/24 12:00 07/26/24 12:00 Temperature 36.6 C Pulse Rate 140 H 133 H Respiratory Rate 20 Blood Pressure 107/60 Pulse Oximetry 96 97 Oxygen Delivery Nasal Cannula Oxygen Flow Rate 2 Fraction of Inspired Oxygen 07/26/24 13:09 07/26/24 13:25 07/26/24 13:33 Temperature Pulse Rate 138 H 143 H Respiratory Rate 18 18 Blood Pressure 84/49 L Pulse Oximetry Oxygen Delivery Oxygen Flow Rate Fraction of Inspired Oxygen 07/26/24 13:42 07/26/24 13:53 07/26/24 14:00 Temperature Pulse Rate 140 H 135 H 135 H Respiratory Rate Blood Pressure 94/66 L Pulse Oximetry Oxygen Delivery Oxygen Flow Rate Fraction of Inspired Oxygen 07/26/24 14:07 07/26/24 14:21 07/26/24 14:30 Temperature 36.8 C Pulse Rate 135 H 130 H 133 H Respiratory Rate Blood Pressure 93/51 L Pulse Oximetry 100 Oxygen Delivery Oxygen Flow Rate Fraction of Inspired Oxygen 07/26/24 16:00 07/26/24 16:00 07/26/24 16:27 Temperature 36.7 C Pulse Rate 135 H 135 H Respiratory Rate 22 H Blood Pressure 98/58 L Pulse Oximetry 97 97 Oxygen Delivery Nasal Cannula Oxygen Flow Rate 2 Fraction of Inspired Oxygen 07/26/24 17:20 07/26/24 17:25 07/26/24 18:00 Temperature 36.4 C Pulse Rate 136 H 135 H 136 H Respiratory Rate 18 18 20 Blood Pressure 94/63 L Pulse Oximetry 94 Oxygen Delivery Oxygen Flow Rate Fraction of Inspired Oxygen 07/26/24 18:00 07/26/24 19:35 07/26/24 20:00 Temperature 36.9 C Pulse Rate 134 H 136 H 136 H Respiratory Rate 18 Blood Pressure 119/50 L Pulse Oximetry 97 Oxygen Delivery Oxygen Flow Rate Fraction of Inspired Oxygen 07/26/24 20:00 07/26/24 20:00 07/26/24 20:00 Temperature Pulse Rate 134 H 134 H Respiratory Rate Blood Pressure 119/50 L Pulse Oximetry 99 Oxygen Delivery Nasal Cannula Oxygen Flow Rate 1 Fraction of Inspired Oxygen 07/26/24 20:32 07/26/24 20:33 07/26/24 20:39 Temperature Pulse Rate 130 H 129 H Respiratory Rate 18 18 Blood Pressure Pulse Oximetry 95 Oxygen Delivery High Flow Nasal Cannula Oxygen Flow Rate 1 Fraction of Inspired Oxygen 07/26/24 21:40 07/26/24 22:00 07/26/24 22:00 Temperature Pulse Rate 134 H 133 H 133 H Respiratory Rate Blood Pressure Pulse Oximetry Oxygen Delivery Oxygen Flow Rate Fraction of Inspired Oxygen 07/26/24 23:23 07/26/24 23:30 07/26/24 23:41 Temperature 36.8 C Pulse Rate 128 H 126 H 126 H Respiratory Rate 18 18 20 Blood Pressure 115/60 Pulse Oximetry 98 Oxygen Delivery Oxygen Flow Rate Fraction of Inspired Oxygen 07/27/24 00:00 07/27/24 00:00 07/27/24 00:01 Temperature Pulse Rate 128 H 126 H Respiratory Rate Blood Pressure 115/60 Pulse Oximetry 97 Oxygen Delivery Nasal Cannula Oxygen Flow Rate 1 Fraction of Inspired Oxygen 07/27/24 01:28 07/27/24 01:28 07/27/24 01:41 Temperature Pulse Rate 127 H 127 H 127 H Respiratory Rate Blood Pressure 113/62 113/62 118/66 Pulse Oximetry 96 Oxygen Delivery Oxygen Flow Rate Fraction of Inspired Oxygen 07/27/24 02:00 07/27/24 04:00 07/27/24 04:00 Temperature 36.8 C Pulse Rate 126 H 118 H Respiratory Rate 18 Blood Pressure 118/56 L Pulse Oximetry 97 98 Oxygen Delivery Nasal Cannula Oxygen Flow Rate 1 Fraction of Inspired Oxygen 07/27/24 04:00 07/27/24 04:00 07/27/24 04:42 Temperature Pulse Rate 123 H 122 H 123 H Respiratory Rate 18 Blood Pressure 118/56 L Pulse Oximetry Oxygen Delivery Oxygen Flow Rate Fraction of Inspired Oxygen 07/27/24 04:49 07/27/24 06:00 07/27/24 06:00 Temperature Pulse Rate 123 H 125 H 123 H Respiratory Rate 19 Blood Pressure 111/66 Pulse Oximetry Oxygen Delivery Oxygen Flow Rate Fraction of Inspired Oxygen 07/27/24 07:21 07/27/24 07:21 07/27/24 07:25 Temperature Pulse Rate 124 H 124 H 125 H Respiratory Rate 20 Blood Pressure Pulse Oximetry Oxygen Delivery Oxygen Flow Rate Fraction of Inspired Oxygen 07/27/24 07:25 Temperature Pulse Rate Respiratory Rate Blood Pressure Pulse Oximetry 98 Oxygen Delivery High Flow Nasal Cannula Oxygen Flow Rate 1 Fraction of Inspired Oxygen 24 Intake/Output Intake/Output: Intake & Output 07/24/24 07/25/24 07/26/24 07/27/24 23:59 23:59 23:59 23:59 Intake Total 2150 1450 2260.6 561.6 Output Total 50 700 1300 600 Balance 2100 750 960.6 -38.4 Meds/Results Medications: Active Medications Generic Name Dose Route Start Last Admin Trade Name Freq PRN Reason Stop Dose Admin Acetaminophen 650 mg 07/24/24 15:42 Acetaminophen 325 Mg Tablet PO Q4H PRN Mild Pain (1-3) or Fever Hydrocodone Bitart/Acetaminophen 1 tab 07/24/24 15:42 Hydrocodone/Acetaminophen (*Crx) 5-325 Mg Tablet PO Q4H PRN Pain Rated 4-6 Apixaban 5 mg 07/25/24 09:00 07/26/24 17:36 Apixaban 5 Mg Tablet BY MOUTH 5 mg BID NATASHA Administration Dextrose 12.5 gm 07/25/24 04:38 07/25/24 04:57 Dextrose 50% 25 Gm/50 Ml Syringe IV PUSH 12.5 gm PRN PRN Administration Hypoglycemia Protocol Docusate Sodium 100 mg 07/25/24 09:00 07/26/24 10:16 Docusate Sodium 100 Mg Capsule PO 100 mg DAILY NATASHA Administration Dutasteride 0.5 mg 07/25/24 09:00 07/26/24 10:16 Dutasteride 0.5 Mg Capsule PO 0.5 mg DAILY NATASHA Administration Empagliflozin 25 mg 07/25/24 09:00 07/26/24 10:16 Empagliflozin 25 Mg Tablet BY MOUTH 25 mg DAILY NATASHA Administration Finasteride 5 mg 07/25/24 09:00 07/26/24 10:22 Finasteride 5 Mg Tablet PO 5 mg DAILY NATASHA Administration Gabapentin 100 mg 07/24/24 19:00 07/26/24 17:35 Gabapentin 100 Mg Capsule PO 100 mg BID NATASHA Administration Glucagon 1 mg 07/25/24 04:38 Glucagon For Inj 1 Mg Vial IM PRN PRN Hypoglycemia Protocol Glucose 15 gm 07/25/24 04:38 Glucose Oral Gel 15 Gm Of Glucse In 37.5 Gm Tube PO PRN PRN Hypoglycemia Protocol Guaifenesin 1,200 mg 07/25/24 09:00 07/26/24 21:39 Guaifenesin 12 Hr 600 Mg Tabcr PO 1,200 mg Q12HR NATASHA Administration Heparin Sodium (Beef Lung) 50 units 07/26/24 09:00 07/26/24 16:13 Heparin Flush 50 Units/5 Ml Syringe IV PUSH 50 units QAM NATASHA Administration Heparin Sodium (Beef Lung) 50 units 07/25/24 18:45 Heparin Flush 50 Units/5 Ml Syringe IV PUSH PRN PRN after intermittent infusion Heparin Sodium (Beef Lung) 50 units 07/25/24 18:45 Heparin Flush 50 Units/5 Ml Syringe IV PUSH PRN PRN after blood draws Heparin Sodium (Porcine) 500 units 07/25/24 18:45 Heparin Sodium Lock Flush 500 Units/5 Ml Syringe IV PUSH PRN PRN see comments below Ceftriaxone Sodium 1 gm in 50 mls @ 100 mls/hr 07/25/24 18:00 07/26/24 20:49 Rocephin 1 Gm/Ns 50 Ml IVPB Infused Q24H NATASHA Infusion Dextrose 1,000 mls @ 100 mls/hr 07/25/24 04:38 Dextrose 5% 1,000 Ml IVPB PRN PRN Hypoglycemia Protocol Levofloxacin/Dextrose 750 mg in 150 mls @ 100 mls/hr 07/26/24 14:00 07/26/24 16:04 Levaquin 750 Mg/D5w 150 Ml IVPB 100 mls/hr Q48HR NATASHA Administration Amiodarone HCl/Dextrose 360 mg in 200 mls @ 33.333 mls/hr 07/26/24 19:20 07/27/24 07:21 Nexterone 360 Mg/D5w 200 Ml IV CONT 1 mg/min .Q6H NATASHA 33.33 mls/hr Administration 1 MG/MIN Ipratropium [place] 0.5 mg 07/26/24 12:00 07/27/24 07:27 Ipratropium Br 0.02% Inh Soln 0.5 Mg/2.5 Ml Vial INHALATION 0.5 mg Q4HRT NATASHA Administration Levothyroxine Sodium 44 mcg 07/25/24 06:30 07/27/24 06:00 Levothyroxine Sodium 44 Mcg Tablet PO 44 mcg DAILY@0630 NATASHA Administration Metoprolol Succinate 12.5 mg 07/26/24 21:15 07/26/24 21:40 Metoprolol Succinate Ext Rel 12.5 Mg Tabcr PO 12.5 mg QHS NATASHA Administration Pravastatin Sodium 40 mg 07/25/24 09:00 07/26/24 10:17 Pravastatin Sodium 20 Mg Tablet BY MOUTH 40 mg DAILY NATASHA Administration Prednisone 40 mg 07/25/24 08:00 07/25/24 18:07 Prednisone 20 Mg Tablet PO 07/30/24 07:59 40 mg DAILY@0800 NATASHA Administration Promethazine HCl 12.5 mg 07/24/24 15:42 Promethazine Hcl 25 Mg/Ml Ampul IV PUSH Q6H PRN Nausea Sodium Chloride 10 ml 07/25/24 22:00 07/27/24 07:17 Central Line Flush IV PUSH 10 ml Q8HR NATASHA Administration Spironolactone 25 mg 07/25/24 09:00 07/25/24 08:53 Spironolactone 25 Mg Tablet PO 25 mg Q48H NATASHA Administration Tamsulosin HCl 0.4 mg 07/25/24 09:00 07/26/24 10:17 Tamsulosin Hcl 0.4 Mg Capsule PO 0.4 mg DAILY NATASHA Administration Radiology Results: ITS Impressions Chest X-Ray 07/25/24 23:14 IMPRESSION: No focal infiltrate or effusion. Stable volume loss within the left hemithorax with left apical scarring, unchanged. Labs Labs: Laboratory Results - last 24 hr 07/26/24 07/26/24 07/27/24 06:06 13:32 05:59 WBC 12.3 H RBC 4.80 Hgb 9.2 L Hct 32.3 L MCV 67.3 L MCH 19.2 L MCHC 28.5 L RDW 19.0 H Plt Count 301 MPV 10.6 H Puncture Site Right radial ABG pH 7.405 ABG pCO2 39.6 ABG pO2 77.7 L ABG PO2/FiO2 Ratio 3.24 ABG HCO3 24.3 ABG O2 Saturation 95.6 ABG O2 Content 14.7 L ABG Base Excess -0.4 A-a Gradient 46.3 Oxyhemoglobin 94.8 Total Hemoglobin 11.0 L O2 Delivery Device Nasal cannula O2 Liters/Min 1.0 FiO2 24 NT-Pro-B Natriuret Pep 8610 H Procalcitonin 1.7 Quality VTE Prophylaxis VTE prophylaxis: mechanical ordered and pharmacologic ordered
[2024-07-27] MEDS: TAMSULOSIN HCL 0.4 MG CAPSULE PO (08:50)
[2024-07-27] MEDS: guaiFENesin 12 HR 600 MG TABCR 1200 MG PO (08:50)
[2024-07-27] MEDS: GABAPENTIN 100 MG CAPSULE PO ×2 (08:50→17:12)
[2024-07-27] MEDS: DUTASTERIDE 0.5 MG CAPSULE PO (08:50)
[2024-07-27] MEDS: PRAVASTATIN SODIUM 20 MG TABLET 40 MG BY MOUTH (08:50)
[2024-07-27] MEDS: APIXABAN 5 MG TABLET BY MOUTH ×2 (08:50→17:13)
[2024-07-27] MEDS: SPIRONOLACTONE 25 MG TABLET PO (08:50)
[2024-07-27] MEDS: EMPAGLIFLOZIN 25 MG TABLET BY MOUTH (08:50)
[2024-07-27] MEDS: DOCUSATE SODIUM 100 MG CAPSULE PO (08:50)
[2024-07-27] MEDS: FINASTERIDE 5 MG TABLET PO (08:50)
--- NOTE | 2024-07-27 13:38 | P.PNCA_ITS ---
Progress Note: A&P Assessment and Plan (1) SVT (supraventricular tachycardia): Code(s): I47.1 - Supraventricular tachycardia Status: Acute Plan 84-year-old man with chronic lung disease with atrial flutter with RVR increasing shortness of breath. Sinus rhythm has been restored with IV amiodarone. I will stop this today and substituted with oral flecainide for antiarrhythmic therapy. Hopefully amiodarone can be avoided in this gentleman with significant chronic lung disease. He is anticoagulated with apixaban. Shawn Hoffman MD [facility] Subjective Date/time seen: Date of service: 07/27/24 13:38 Interval history: Follow-up visit in this 84-year-old man with: Atrial flutter with RVR occurring in the setting of chronic lung disease, previous lung cancer surgery etc.. Patient was started on intravenous amiodarone last evening and earlier today has converted to sinus rhythm. He is asymptomatic at this time. Exam Const: General: comfortable and no acute distress Other: Pleasant elderly man no distress HENMT: Mouth: Yes moist mucous membranes Eyes: Sclera: sclerae normal Neck: Neck: supple Resp: Other: Breath sounds are diminished with few central rhonchi noted no pulmonary rales or wheezing Cardio: Rate: regular rate Rhythm: regular rhythm GI: GI Palp: Yes Soft to palpation Auscultation: normal bowel sounds Skin: General skin exam: normal color Neuro: Other: Alert and oriented x3 Objective Data Vital Signs Vital Signs: Vital Signs - 24 hr 07/26/24 13:42 07/26/24 13:53 07/26/24 14:00 Temperature Pulse Rate 140 H 135 H 135 H Respiratory Rate Blood Pressure 94/66 L Pulse Oximetry Oxygen Delivery Oxygen Flow Rate Fraction of Inspired Oxygen 07/26/24 14:07 07/26/24 14:21 07/26/24 14:30 Temperature 36.8 C Pulse Rate 135 H 130 H 133 H Respiratory Rate Blood Pressure 93/51 L Pulse Oximetry 100 Oxygen Delivery Oxygen Flow Rate Fraction of Inspired Oxygen 07/26/24 16:00 07/26/24 16:00 07/26/24 16:27 Temperature 36.7 C Pulse Rate 135 H 135 H Respiratory Rate 22 H Blood Pressure 98/58 L Pulse Oximetry 97 97 Oxygen Delivery Nasal Cannula Oxygen Flow Rate 2 Fraction of Inspired Oxygen 07/26/24 17:20 07/26/24 17:25 07/26/24 18:00 Temperature 36.4 C Pulse Rate 136 H 135 H 136 H Respiratory Rate 18 18 20 Blood Pressure 94/63 L Pulse Oximetry 94 Oxygen Delivery Oxygen Flow Rate Fraction of Inspired Oxygen 07/26/24 18:00 07/26/24 19:35 07/26/24 20:00 Temperature 36.9 C Pulse Rate 134 H 136 H 136 H Respiratory Rate 18 Blood Pressure 119/50 L Pulse Oximetry 97 Oxygen Delivery Oxygen Flow Rate Fraction of Inspired Oxygen 07/26/24 20:00 07/26/24 20:00 07/26/24 20:00 Temperature Pulse Rate 134 H 134 H Respiratory Rate Blood Pressure 119/50 L Pulse Oximetry 99 Oxygen Delivery Nasal Cannula Oxygen Flow Rate 1 Fraction of Inspired Oxygen 07/26/24 20:32 07/26/24 20:33 07/26/24 20:39 Temperature Pulse Rate 130 H 129 H Respiratory Rate 18 18 Blood Pressure Pulse Oximetry 95 Oxygen Delivery High Flow Nasal Cannula Oxygen Flow Rate 1 Fraction of Inspired Oxygen 07/26/24 21:40 07/26/24 22:00 07/26/24 22:00 Temperature Pulse Rate 134 H 133 H 133 H Respiratory Rate Blood Pressure Pulse Oximetry Oxygen Delivery Oxygen Flow Rate Fraction of Inspired Oxygen 07/26/24 23:23 07/26/24 23:30 07/26/24 23:41 Temperature 36.8 C Pulse Rate 128 H 126 H 126 H Respiratory Rate 18 18 20 Blood Pressure 115/60 Pulse Oximetry 98 Oxygen Delivery Oxygen Flow Rate Fraction of Inspired Oxygen 07/27/24 00:00 07/27/24 00:00 07/27/24 00:01 Temperature Pulse Rate 128 H 126 H Respiratory Rate Blood Pressure 115/60 Pulse Oximetry 97 Oxygen Delivery Nasal Cannula Oxygen Flow Rate 1 Fraction of Inspired Oxygen 07/27/24 01:28 07/27/24 01:28 07/27/24 01:41 Temperature Pulse Rate 127 H 127 H 127 H Respiratory Rate Blood Pressure 113/62 113/62 118/66 Pulse Oximetry 96 Oxygen Delivery Oxygen Flow Rate Fraction of Inspired Oxygen 07/27/24 02:00 07/27/24 04:00 07/27/24 04:00 Temperature 36.8 C Pulse Rate 126 H 118 H Respiratory Rate 18 Blood Pressure 118/56 L Pulse Oximetry 97 98 Oxygen Delivery Nasal Cannula Oxygen Flow Rate 1 Fraction of Inspired Oxygen 07/27/24 04:00 07/27/24 04:00 07/27/24 04:42 Temperature Pulse Rate 123 H 122 H 123 H Respiratory Rate 18 Blood Pressure 118/56 L Pulse Oximetry Oxygen Delivery Oxygen Flow Rate Fraction of Inspired Oxygen 07/27/24 04:49 07/27/24 06:00 07/27/24 06:00 Temperature Pulse Rate 123 H 125 H 123 H Respiratory Rate 19 Blood Pressure 111/66 Pulse Oximetry Oxygen Delivery Oxygen Flow Rate Fraction of Inspired Oxygen 07/27/24 07:21 07/27/24 07:21 07/27/24 07:25 Temperature Pulse Rate 124 H 124 H 125 H Respiratory Rate 20 Blood Pressure Pulse Oximetry Oxygen Delivery Oxygen Flow Rate Fraction of Inspired Oxygen 07/27/24 07:25 07/27/24 07:35 07/27/24 08:00 Temperature Pulse Rate 122 H 126 H Respiratory Rate 20 Blood Pressure Pulse Oximetry 98 Oxygen Delivery Nasal Cannula Oxygen Flow Rate 1 Fraction of Inspired Oxygen 24 07/27/24 08:00 07/27/24 08:00 07/27/24 08:02 Temperature 36.4 C Pulse Rate 113 H 113 H Respiratory Rate 21 H Blood Pressure 125/65 125/65 Pulse Oximetry 100 98 Oxygen Delivery Nasal Cannula Oxygen Flow Rate 1 Fraction of Inspired Oxygen 07/27/24 10:00 07/27/24 10:00 07/27/24 10:00 Temperature 36.5 C Pulse Rate 128 H 127 H 128 H Respiratory Rate 20 Blood Pressure 129/80 129/80 Pulse Oximetry 100 Oxygen Delivery Oxygen Flow Rate Fraction of Inspired Oxygen 07/27/24 12:00 07/27/24 12:00 07/27/24 12:00 Temperature 36.0 C L Pulse Rate 128 H 128 H Respiratory Rate 20 Blood Pressure 129/75 129/75 Pulse Oximetry 91 100 Oxygen Delivery Nasal Cannula Oxygen Flow Rate 1 Fraction of Inspired Oxygen 07/27/24 12:00 07/27/24 12:53 07/27/24 12:53 Temperature Pulse Rate 134 H 75 75 Respiratory Rate Blood Pressure 129/75 129/75 Pulse Oximetry Oxygen Delivery Oxygen Flow Rate Fraction of Inspired Oxygen 07/27/24 12:55 07/27/24 13:12 Temperature Pulse Rate 121 H 122 H Respiratory Rate 20 20 Blood Pressure Pulse Oximetry Oxygen Delivery Oxygen Flow Rate Fraction of Inspired Oxygen Intake/Output Intake/Output: Intake & Output 07/24/24 07/25/24 07/26/24 07/27/24 23:59 23:59 23:59 23:59 Intake Total 2150 1450 2260.6 1106.1 Output Total 50 700 1300 600 Balance 2100 750 960.6 506.1 Meds/Results Medications: Active Medications Generic Name Dose Route Start Last Admin Trade Name Freq PRN Reason Stop Dose Admin Acetaminophen 650 mg 07/24/24 15:42 Acetaminophen 325 Mg Tablet PO Q4H PRN Mild Pain (1-3) or Fever Hydrocodone Bitart/Acetaminophen 1 tab 07/24/24 15:42 Hydrocodone/Acetaminophen (*Crx) 5-325 Mg Tablet PO Q4H PRN Pain Rated 4-6 Apixaban 5 mg 07/25/24 09:00 07/27/24 08:50 Apixaban 5 Mg Tablet BY MOUTH 5 mg BID NATASHA Administration Dextrose 12.5 gm 07/25/24 04:38 07/25/24 04:57 Dextrose 50% 25 Gm/50 Ml Syringe IV PUSH 12.5 gm PRN PRN Administration Hypoglycemia Protocol Docusate Sodium 100 mg 07/25/24 09:00 07/27/24 08:50 Docusate Sodium 100 Mg Capsule PO 100 mg DAILY NATASHA Administration Dutasteride 0.5 mg 07/25/24 09:00 07/27/24 08:50 Dutasteride 0.5 Mg Capsule PO 0.5 mg DAILY NATASHA Administration Empagliflozin 25 mg 07/25/24 09:00 07/27/24 08:50 Empagliflozin 25 Mg Tablet BY MOUTH 25 mg DAILY NATASHA Administration Finasteride 5 mg 07/25/24 09:00 07/27/24 08:50 Finasteride 5 Mg Tablet PO 5 mg DAILY NATASHA Administration Gabapentin 100 mg 07/24/24 19:00 07/27/24 08:50 Gabapentin 100 Mg Capsule PO 100 mg BID NATASHA Administration Glucagon 1 mg 07/25/24 04:38 Glucagon For Inj 1 Mg Vial IM PRN PRN Hypoglycemia Protocol Glucose 15 gm 07/25/24 04:38 Glucose Oral Gel 15 Gm Of Glucse In 37.5 Gm Tube PO PRN PRN Hypoglycemia Protocol Guaifenesin 400 mg 07/27/24 09:13 Guaifenesin 200 Mg/10 Ml Udc PO Q8HR PRN Cough Heparin Sodium (Beef Lung) 50 units 07/26/24 09:00 07/27/24 08:53 Heparin Flush 50 Units/5 Ml Syringe IV PUSH 50 units QAM NATASHA Administration Heparin Sodium (Beef Lung) 50 units 07/25/24 18:45 Heparin Flush 50 Units/5 Ml Syringe IV PUSH PRN PRN after intermittent infusion Heparin Sodium (Beef Lung) 50 units 07/25/24 18:45 Heparin Flush 50 Units/5 Ml Syringe IV PUSH PRN PRN after blood draws Heparin Sodium (Porcine) 500 units 07/25/24 18:45 Heparin Sodium Lock Flush 500 Units/5 Ml Syringe IV PUSH PRN PRN see comments below Ceftriaxone Sodium 1 gm in 50 mls @ 100 mls/hr 07/25/24 18:00 07/26/24 20:49 Rocephin 1 Gm/Ns 50 Ml IVPB Infused Q24H NATASHA Infusion Dextrose 1,000 mls @ 100 mls/hr 07/25/24 04:38 Dextrose 5% 1,000 Ml IVPB PRN PRN Hypoglycemia Protocol Levofloxacin/Dextrose 750 mg in 150 mls @ 100 mls/hr 07/26/24 14:00 07/26/24 16:04 Levaquin 750 Mg/D5w 150 Ml IVPB 100 mls/hr Q48HR NATASHA Administration Amiodarone HCl/Dextrose 360 mg in 200 mls @ 33.333 mls/hr 07/26/24 19:20 07/27/24 12:53 Nexterone 360 Mg/D5w 200 Ml IV CONT 1 mg/min .Q6H NATASHA 33.33 mls/hr Administration 1 MG/MIN Ipratropium Y[place] 0.5 mg 07/26/24 12:00 07/27/24 12:55 Ipratropium Br 0.02% Inh Soln 0.5 Mg/2.5 Ml Vial INHALATION 0.5 mg Q4HRT NATASHA Administration Levothyroxine Sodium 44 mcg 07/25/24 06:30 07/27/24 06:00 Levothyroxine Sodium 44 Mcg Tablet PO 44 mcg DAILY@0630 NATASHA Administration Metoprolol Succinate 12.5 mg 07/26/24 21:15 07/26/24 21:40 Metoprolol Succinate Ext Rel 12.5 Mg Tabcr PO 12.5 mg QHS NATASHA Administration Pravastatin Sodium 40 mg 07/25/24 09:00 07/27/24 08:50 Pravastatin Sodium 20 Mg Tablet BY MOUTH 40 mg DAILY NATASHA Administration Prednisone 40 mg 07/25/24 08:00 07/27/24 08:50 Prednisone 20 Mg Tablet PO 07/30/24 07:59 40 mg DAILY@0800 NATASHA Administration Promethazine HCl 12.5 mg 07/24/24 15:42 Promethazine Hcl 25 Mg/Ml Ampul IV PUSH Q6H PRN Nausea Sodium Chloride 10 ml 07/25/24 22:00 07/27/24 07:17 Central Line Flush IV PUSH 10 ml Q8HR NATASHA Administration Spironolactone 25 mg 07/25/24 09:00 07/27/24 08:50 Spironolactone 25 Mg Tablet PO 25 mg Q48H NATASHA Administration Tamsulosin HCl 0.4 mg 07/25/24 09:00 07/27/24 08:50 Tamsulosin Hcl 0.4 Mg Capsule PO 0.4 mg DAILY NATASHA Administration Radiology Results: ITS Impressions Chest X-Ray 07/25/24 23:14 IMPRESSION: No focal infiltrate or effusion. Stable volume loss within the left hemithorax with left apical scarring, unchanged. Chest CT 07/27/24 10:22 IMPRESSION: 1. Severe emphysema with several new pulmonary nodules in the right upper and lower lobes measuring up to 1 cm which are most likely infectious/inflammatory in etiology but would recommend 3 month follow-up low-dose noncontrast chest CT for further evaluation. 2. 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 3. Small right pleural effusion. Labs Labs: Laboratory Results - last 24 hr 07/26/24 07/26/24 07/27/24 06:06 13:32 05:59 WBC 12.3 H RBC 4.80 Hgb 9.2 L Hct 32.3 L MCV 67.3 L MCH 19.2 L MCHC 28.5 L RDW 19.0 H Plt Count 301 MPV 10.6 H Puncture Site Right radial ABG pH 7.405 ABG pCO2 39.6 ABG pO2 77.7 L ABG PO2/FiO2 Ratio 3.24 ABG HCO3 24.3 ABG O2 Saturation 95.6 ABG O2 Content 14.7 L ABG Base Excess -0.4 A-a Gradient 46.3 Oxyhemoglobin 94.8 Total Hemoglobin 11.0 L O2 Delivery Device Nasal cannula O2 Liters/Min 1.0 FiO2 24 NT-Pro-B Natriuret Pep 8610 H Procalcitonin 1.7
--- NOTE | 2024-07-27 17:26 | P.PNPL_ITS ---
Progress Note: A&P Assessment and Plan (1) COPD exacerbation: Code(s): J44.1 - Chronic obstructive pulmonary disease with (acute) exacerbation Status: Acute Assessment and Plan: Patient with a 51 pack year tobacco use, quit 2007, also exposed to secondhand smoke from both of his parents. Tells me he was diagnosed 5-6 years ago with a breathing test but I do not have these results. CT scan of the chest from 04/05/2021 demonstrates severe apical greater than basilar predominant panlobular emphysema. Prior to admission he was not on any supplemental oxygen. He has dyspnea on exertion half a block and chronically produces phlegm at 2 to 3 times a day described aar and yellow. White blood cell count 519 2024 9.0 was 0% eosinophils. White blood cell count on 07/24/2024 18.9 with 0% eosinophils. He is maintained on Trelegy inhaler. Patient presents with worsening shortness of breath at rest and with activity, increased cough with no change in his baseline phlegm. He is treated for COPD exacerbation with Solu-Medrol, bronchodilators, ceftriaxone and azithromycin for possible pneumonia. 07/26/2024: Currently the patient tells me he is better. States he is breathing 80% back to his baseline. He has no cough, or fever. His phlegm production is the same as it was when he presented. Currently he is on 1 L nasal cannula saturations 100%. His white blood cell count is 12.1, his c reatinine is 1.26. He currently is tachycardic at 1:45 a.m. and an amiodarone her own drip is being started. He tells me he has phlegm that he is unable to expectorate. I recommended a D-dimer test and at this time he declines. Plan: Agree with treatment for COPD exacerbation. Currently the patient has no wheezing and is tachycardic with initiation of amiodarone drip for a flutter with RVR. Will continue prednisone 40 mg p.o. q.day, day 3 total systemic steroids. given his tachyarrhythmias I will discontinue beta agonist at this time and try to manage him with muscarinic antagonists. I will discontinue his Trelegy and his DuoNebs and place him on ipratropium nebulizers q.4 hours. If the patient's bronchospasm cannot be controlled with ipratropium nebulizers would add levalbuterol nebulizers rather than albuterol. I will continue guaifenesin 1200 mg p.o. b.i.d.. I will add a Cornet flutter valve. Goal saturation 90-94%. Currently the patient is on 1 L with saturations 100%. I will leave him on oxygen as his heart rate is 140-150 but will then wean his oxygen accordingly. I will check an alpha 1 anti trypsin genotype and level on 07/27/24. I will check an ABG to assess for hypercarbic respiratory failure. The patient is being treated for a pneumonia with ceftriaxone started on 07/24/2024, day 3. He was given azithromycin on 07/24/2022. I will start level Floxin 750 mg Q 48 hours given his creatinine clearance, today will be day 3 atypical coverage. I will order CT scan of the chest to assess for focal infiltrates. COVID influenza, RSV RT PCR assay negative. I will check a procalcitonin. I will send the respiratory pathogen panel, urine for Legionella antigen, urine for pneumococcal antigen, and a serum mycoplasma IgM. If there is no focal infiltrate consistent with pneumonia on his CT scan will consider deescalating just to levofloxacin alone for tracheobronchitis. patient currently has a tachy arrhythmia, Cardiology and hospitalist teams are following. Cumulative since admission he is positive 2.3 L. BNP was 7640 on 07/24. I will repeat a BNP. Lasix has been held. Of note patient is on Lasix 10 mg a day at home. Recommend diuresis as tolerated by his cardiac and renal systems per transit proof machine operator and hospitalist team. Discussed with Dr. Marie, we will follow with you. 07/27/24; He had a chest CT today showing IMPRESSION: 1. Severe emphysema with several new pulmonary nodules in the right upper and lower lobes measuring up to 1 cm which are most likely infectious/inflammatory in etiology but would recommend 3 month follow-up low-dose noncontrast chest CT for further evaluation. 2. 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 3. Small right pleural effusion. He tells me that he has a CT scheduled for August. He feels better today, less short of breath. Given the new nodules, I will continue Levaquin. (2) Pulmonary embolism: Qualifiers: Acute cor pulmonale presence: unspecified Chronicity: unspecified Pulmonary embolism type: unspecified Qualified Code(s): I26.99 - Other pulmonary embolism without acute cor pulmonale Code(s): I26.99 - Other pulmonary embolism without acute cor pulmonale Status: Acute Assessment and Plan: Patient with a pulmonary embolism in 04/05/2021. Patient has history of lung cancer and tongue cancer. Currently he is anticoagulated with Eliquis. Plan: I ordered a D-dimer but at this time the patient is declining. Since he is going to be anticoagulated with Eliquis will not order CT angiogram of the chest currently. 07/27/24; no change in this condition. (3) Metastatic lung cancer (metastasis from lung to other site): Qualifiers: Laterality: unspecified laterality Qualified Code(s): C34.90 - Malignant neoplasm of unspecified part of unspecified bronchus or lung Code(s): C34.90 - Malignant neoplasm of unspecified part of unspecified bronchus or lung Status: Acute Assessment and Plan: Regarding his lung cancer: Last office visit note I have is from 05/21/2024, Dr. 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 Both the lung lesion and the ipsilateral lymph node had increased FDG uptake on 10/25/2016. Came to [facility] on 11/17/2016 for further management. Carboplatin plus Pemetrexed x4 cycles ending 02/28/2017. Thoracic radiotherapy from 03/23/2017-04/12/2017. Carboplatin plus Pemetrexed x4 cycles ending 03/06/2018. Maintenance pemetrexed times 30 cycles ending 12/24/2019. Docetaxel X7 cycles ending 03/09/2021. plan for CT including the neck on 08/10/2024 and return to clinic on 08/20/2024. plan: Patient tells me he follows up with [facility] Oncology with a CT scan on 08/15 and clinic visit on 08/20/2024 07/27/24; no change. Plan plan: CT chest today with new RUL nodules, continue LEvaquin as he feels better, has less cough and shortness of breath. Subjective Date/time seen: 07/27/24 17:26 Interval history: July 27, 2022; hospital f/u visit; 07/26/2024: This is a new pulmonary consult for COPD exacerbation 84-year-old male with past medical history HFpEF, hypertension, hyperlipidemia, COPD, pulmonary embolism, pericardial tamponade status post drain placement 04/06/2021, arthritis, head and neck cancer, hypothyroidism, vitamin-D deficiency, depression, anxiety, lung cancer, squamous cell lung cancer, BPH presents with chief complaints of shortness of breath. Regarding his lung cancer: Last office visit note I have is from 05/21/2024, Dr. 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 Both the lung lesion and the ipsilateral lymph node had increased FDG uptake on 10/25/2016. Came to site [facility] on 11/17/2016 for further management. Carboplatinum plus Pemetrexed x4 cycles ending 02/28/2017. Thoracic radiotherapy from 03/23/2017-04/12/2017. Carboplatinum plus Pemetrexed x4 cycles ending 03/06/2018. Maintenancepemetrexed times 30 cycles ending 12/24/2019. Docetaxel X7 cycles ending 03/09/2021. regarding his squamous cell lung cancer: Cetuximab x4 cycles ending 03/26/2020. Concurrent radiation from 03/02/2020 through 03/20/2020. Pembrolizumab x6 cycles ending 09/29/2020. His main problem on 05/21/2024 was shortness of breath on exertion. [place] this was related to a COPD exacerbation and given prednisone 40 mg a day x5 days. CT of the neck on 08/10/2024 and return to clinic on 08/20/2024. Regarding his COPD tells me he was diagnosed 5-6 years ago and has been maintained on trilogy inhaler. He is not on oxygen at rest, with activity or with sleep. One year ago he tells me he could walk 1 block. A few weeks ago when he was at his baseline he tells me he can walk half a block. He has chronic phlegm production 2 to 3 times a day described as clear and yellow. Patient smoked 1 pack per day from 5299-5251 for total of 51 pack years. Patient was exposed to secondhand smoke from both of his parents but none since. 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 He denies any sand blasting, welding, asbestos were, professional painting, steel reversing mill roller, mining, construction work. Currently Patient tells me he was getting a bowel prep on 07/21/2024 for colonoscopy and that he was having to walk back and forth to the bathroom and this made him short of breath. he says he was otherwise fine with no respiratory issues. Patient had a colonoscopy in [facility] on 07/22/2024 and was discharged from these procedures in no respiratory distress without any respiratory complaints. On 07/23/2024 the patient felt that his breathing was stressed. He had shortness of breath at rest and with aches he of it he. He had a increased cough but no phlegm production. He denied fever. He called his PCP and was told to go to the emergency room. 07/24/2024: Patient presented to the emergency room with shortness of breath, Productive cough, worsening dyspnea on exertion. Blood pressure 99/72, heart rate 145, room air saturations 88%. Placed on 2 L with saturations 98%. White blood cell count 18.9, eosinophils 0%. Creatinine 1.58, BNP 7640. chest x-ray without focal infiltrate. Chest x-ray with volume loss on the left, right- sided port increased interstitial infiltrates at the bases. COVID, influenza, RSV RT PCR assay negative. Patient was in a flutter with RVR. patient was treated with Ceftriaxone and azithromycin for pneumonia, Solu-Medrol and bronchodilators for COPD exacerbation. patient required 2-4 L nasal cannula 07/25/2024: Patient developed a flutter with RVR, Eliquis restarted. patient required 1-4 L nasal cannula throughout the day 07/26/2024: Currently the patient tells me he is better. States he is breathing 80% back to his baseline. He has no cough, or fever. His phlegm production is the same as it was when he presented. Currently he is on 1 L nasal cannula saturations 100%. His white blood cell count is 12.1, his creatinine is 1.26. He currently is tachycardic at 1:45 a.m. and an amiodarone her own drip is being started. He tells me he has phlegm that he is unable to expectorate. I recommended a D-dimer test and at this time he declines. 07/27/24; he is sitting on the side of the bed, on laptop, in AA meeting. He feels better, less short of breath, less coughing. I talked with him about his 07/[address], new nodules RUL,with recommendation for 3 mo f/u; he has a chest CT scheduled for next month from his [place] oncologist. He routinely sees Dr Willis, oncology and 3 cardiologists. He is on 1 L/min, saturation is 94-100%. Ankles are a little swollen, he says this is normal, he takes Lasix. DATA: 07/25/2024: CHEST RADIOGRAPH CLINICAL HISTORY: a fib . TECHNIQUE: Single portable view of the chest. FINDINGS Right internal jugular central venous port catheter with its tip projecting over the proximal right atrium. The remainder of the cardiomediastinal silhouette is otherwise unremarkable. Volume loss within the left hemithorax with left apical scarring, unchanged from prior. Severe centrilobular emphysematous disease with apical bulla suspected. Increased interstitial markings detected within the bilateral lung bases, unchanged from previous examination performed approximately 24 hours earlier. No pleural effusion is appreciated. IMPRESSION: No focal infiltrate or effusion. Stable volume loss within the left hemithorax with left apical scarring, unchanged. 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 Elevated d-dimer. TECHNIQUE: Computed tomographic angiography (CTA) of the chest was performed with 100 mL Omnipaque-350 intravenous contrast. The dose-length product was 487.85 mGy-cm. Maximum intensity projection 3D-reconstructions of the aorta and other arteries were constructed by the technologist on a separate workstation. COMPARISON: CT dated 10/11/2016. FINDINGS: There is right upper lobe pulmonary embolism, age indeterminate. There is a large pericardial effusion. Small pleural effusions. There is atherosclerosis of the aorta. There is a hyperdense right renal lesion which has increased in size compared with prior study severe emphysema. There is scarring at the lung apices. There is fibrosis in the lower lungs with underlying atelectasis. There are scattered areas of consolidation. Cannot exclude acute pneumonia. There is linear appearance to scarring in the left thorax medially, possibly radiation therapy.. Recommend correlation with ultrasound. There are nodular densities in the right upper and lower lobe laterally on the largest measuring 11 mm. Cannot exclude malignancy. IMPRESSION: 1. Pulmonary embolism right upper and lower lobes pulmonary artery, age indeterminate. 2: Irregular pleural-based nodules right upper lobe. Cannot exclude malignancy. Consider correlation with pet/CT scan or percutaneous biopsy. 3: Moderate pericardial effusion. Small pleural effusions. 4: Emphysema. 5: Hyperdense right renal lesion, enlarged since prior examination. Recommend correlation with ultrasound. Review of Systems Review of Systems: All systems reviewed & are unremarkable except as noted in HPI and below Exam Const: General: cooperative, healthy appearing and comfortable Orientation/consciousness: oriented to person, oriented to place and oriented to time HENMT: Head: normal to inspection Ears: hearing grossly normal bilaterally Eyes: General: appearance normal, both eyes and all related structures Neck: Neck: normal visual inspection Chest: Chest palpation & inspection: normal inspection of the chest Resp: Effort & Inspection: normal respiratory effort and able to speak in complete sentences Auscultation: crackles, no rales, no rhonchi, no wheezes and lung sounds not diminished Other: O2 at 1 L/minute saturation ranging from 94-100%, no increased effort Cardio: Jugular venous distension: no JVD GI: Inspection: normal to inspection GI Palp: No abdominal tenderness Skin: General skin exam: normal color Neuro: General: oriented to person, oriented to place and oriented to time Extrem: General: normal to inspection Psych: Appearance: grossly normal Objective Data Vital Signs Vital Signs: Vital Signs - 24 hr 07/26/24 18:00 07/26/24 18:00 07/26/24 19:35 Temperature 36.4 C Pulse Rate 136 H 134 H 136 H Respiratory Rate 20 Blood Pressure 94/63 L Pulse Oximetry 94 Oxygen Delivery Oxygen Flow Rate Fraction of Inspired Oxygen 07/26/24 20:00 07/26/24 20:00 07/26/24 20:00 Temperature 36.9 C Pulse Rate 136 H 134 H 134 H Respiratory Rate 18 Blood Pressure 119/50 L 119/50 L Pulse Oximetry 97 Oxygen Delivery Oxygen Flow Rate Fraction of Inspired Oxygen 07/26/24 20:00 07/26/24 20:32 07/26/24 20:33 Temperature Pulse Rate 130 H Respiratory Rate 18 Blood Pressure Pulse Oximetry 99 95 Oxygen Delivery Nasal Cannula High Flow Nasal Cannula Oxygen Flow Rate 1 1 Fraction of Inspired Oxygen 07/26/24 20:39 07/26/24 21:40 07/26/24 22:00 Temperature Pulse Rate 129 H 134 H 133 H Respiratory Rate 18 Blood Pressure Pulse Oximetry Oxygen Delivery Oxygen Flow Rate Fraction of Inspired Oxygen 07/26/24 22:00 07/26/24 23:23 07/26/24 23:30 Temperature Pulse Rate 133 H 128 H 126 H Respiratory Rate 18 18 Blood Pressure Pulse Oximetry Oxygen Delivery Oxygen Flow Rate Fraction of Inspired Oxygen 07/26/24 23:41 07/27/24 00:00 07/27/24 00:00 Temperature 36.8 C Pulse Rate 126 H 128 H Respiratory Rate 20 Blood Pressure 115/60 Pulse Oximetry 98 97 Oxygen Delivery Nasal Cannula Oxygen Flow Rate 1 Fraction of Inspired Oxygen 07/27/24 00:01 07/27/24 01:28 07/27/24 01:28 Temperature Pulse Rate 126 H 127 H 127 H Respiratory Rate Blood Pressure 115/60 113/62 113/62 Pulse Oximetry Oxygen Delivery Oxygen Flow Rate Fraction of Inspired Oxygen 07/27/24 01:41 07/27/24 02:00 07/27/24 04:00 Temperature 36.8 C Pulse Rate 127 H 126 H 118 H Respiratory Rate 18 Blood Pressure 118/66 118/56 L Pulse Oximetry 96 97 Oxygen Delivery Oxygen Flow Rate Fraction of Inspired Oxygen 07/27/24 04:00 07/27/24 04:00 07/27/24 04:00 Temperature Pulse Rate 123 H 122 H Respiratory Rate Blood Pressure 118/56 L Pulse Oximetry 98 Oxygen Delivery Nasal Cannula Oxygen Flow Rate 1 Fraction of Inspired Oxygen 07/27/24 04:42 07/27/24 04:49 07/27/24 06:00 Temperature Pulse Rate 123 H 123 H 125 H Respiratory Rate 18 19 Blood Pressure 111/66 Pulse Oximetry Oxygen Delivery Oxygen Flow Rate Fraction of Inspired Oxygen 07/27/24 06:00 07/27/24 07:21 07/27/24 07:21 Temperature Pulse Rate 123 H 124 H 124 H Respiratory Rate Blood Pressure Pulse Oximetry Oxygen Delivery Oxygen Flow Rate Fraction of Inspired Oxygen 07/27/24 07:25 07/27/24 07:25 07/27/24 07:35 Temperature Pulse Rate 125 H 122 H Respiratory Rate 20 20 Blood Pressure Pulse Oximetry 98 Oxygen Delivery Nasal Cannula Oxygen Flow Rate 1 Fraction of Inspired Oxygen 24 07/27/24 08:00 07/27/24 08:00 07/27/24 08:00 Temperature Pulse Rate 126 H 113 H Respiratory Rate Blood Pressure 125/65 Pulse Oximetry 100 Oxygen Delivery Nasal Cannula Oxygen Flow Rate 1 Fraction of Inspired Oxygen 07/27/24 08:02 07/27/24 10:00 07/27/24 10:00 Temperature 36.4 C 36.5 C Pulse Rate 113 H 128 H 127 H Respiratory Rate 21 H 20 Blood Pressure 125/65 129/80 Pulse Oximetry 98 100 Oxygen Delivery Oxygen Flow Rate Fraction of Inspired Oxygen 07/27/24 10:00 07/27/24 12:00 07/27/24 12:00 Temperature 36.0 C L Pulse Rate 128 H 128 H 128 H Respiratory Rate 20 Blood Pressure 129/80 129/75 129/75 Pulse Oximetry 91 Oxygen Delivery Oxygen Flow Rate Fraction of Inspired Oxygen 07/27/24 12:00 07/27/24 12:00 07/27/24 12:53 Temperature Pulse Rate 134 H 75 Respiratory Rate Blood Pressure 129/75 Pulse Oximetry 100 Oxygen Delivery Nasal Cannula Oxygen Flow Rate 1 Fraction of Inspired Oxygen 07/27/24 12:53 07/27/24 12:55 07/27/24 13:12 Temperature Pulse Rate 75 121 H 122 H Respiratory Rate 20 20 Blood Pressure 129/75 Pulse Oximetry Oxygen Delivery Oxygen Flow Rate Fraction of Inspired Oxygen 07/27/24 14:00 07/27/24 14:00 07/27/24 14:38 Temperature 36.6 C Pulse Rate 78 78 77 Respiratory Rate 20 Blood Pressure 135/64 Pulse Oximetry 98 Oxygen Delivery Oxygen Flow Rate Fraction of Inspired Oxygen 07/27/24 16:00 07/27/24 16:00 07/27/24 16:09 Temperature 36.4 C Pulse Rate 71 73 Respiratory Rate 20 Blood Pressure 128/78 Pulse Oximetry 100 98 Oxygen Delivery Nasal Cannula Oxygen Flow Rate 1 Fraction of Inspired Oxygen Intake/Output Intake/Output: Intake & Output 07/24/24 07/25/24 07/26/24 07/27/24 23:59 23:59 23:59 23:59 Intake Total 2150 1450 2260.6 1106.1 Output Total 50 700 1300 600 Balance 2100 750 960.6 506.1 Meds/Results Medications: Active Medications Generic Name Dose Route Start Last Admin Trade Name Freq PRN Reason Stop Dose Admin Acetaminophen 650 mg 07/24/24 15:42 Acetaminophen 325 Mg Tablet PO Q4H PRN Mild Pain (1-3) or Fever Hydrocodone Bitart/Acetaminophen 1 tab 07/24/24 15:42 Hydrocodone/Acetaminophen (*Crx) 5-325 Mg Tablet PO Q4H PRN Pain Rated 4-6 Apixaban 5 mg 07/25/24 09:00 07/27/24 17:13 Apixaban 5 Mg Tablet BY MOUTH 5 mg BID NATASHA Administration Dextrose 12.5 gm 07/25/24 04:38 07/25/24 04:57 Dextrose 50% 25 Gm/50 Ml Syringe IV PUSH 12.5 gm PRN PRN Administration Hypoglycemia Protocol Docusate Sodium 100 mg 07/25/24 09:00 07/27/24 08:50 Docusate Sodium 100 Mg Capsule PO 100 mg DAILY NATASHA Administration Dutasteride 0.5 mg 07/25/24 09:00 07/27/24 08:50 Dutasteride 0.5 Mg Capsule PO 0.5 mg DAILY NATASHA Administration Empagliflozin 25 mg 07/25/24 09:00 07/27/24 08:50 Empagliflozin 25 Mg Tablet BY MOUTH 25 mg DAILY NATASHA Administration Finasteride 5 mg 07/25/24 09:00 07/27/24 08:50 Finasteride 5 Mg Tablet PO 5 mg DAILY NATASHA Administration Flecainide Acetate 100 mg 07/27/24 21:00 Flecainide Acetate 100 Mg Tablet PO Q12HR NATASHA Gabapentin 100 mg 07/24/24 19:00 07/27/24 17:12 Gabapentin 100 Mg Capsule PO 100 mg BID NATASHA Administration Glucagon 1 mg 07/25/24 04:38 Glucagon For Inj 1 Mg Vial IM PRN PRN Hypoglycemia Protocol Glucose 15 gm 07/25/24 04:38 Glucose Oral Gel 15 Gm Of Glucse In 37.5 Gm Tube PO PRN PRN Hypoglycemia Protocol Guaifenesin 400 mg 07/27/24 09:13 Guaifenesin 200 Mg/10 Ml Udc PO Q8HR PRN Cough Heparin Sodium (Beef Lung) 50 units 07/26/24 09:00 07/27/24 08:53 Heparin Flush 50 Units/5 Ml Syringe IV PUSH 50 units QAM NATASHA Administration Heparin Sodium (Beef Lung) 50 units 07/25/24 18:45 Heparin Flush 50 Units/5 Ml Syringe IV PUSH PRN PRN after intermittent infusion Heparin Sodium (Beef Lung) 50 units 07/25/24 18:45 Heparin Flush 50 Units/5 Ml Syringe IV PUSH PRN PRN after blood draws Heparin Sodium (Porcine) 500 units 07/25/24 18:45 Heparin Sodium Lock Flush 500 Units/5 Ml Syringe IV PUSH PRN PRN see comments below Ceftriaxone Sodium 1 gm in 50 mls @ 100 mls/hr 07/25/24 18:00 07/27/24 17:13 Rocephin 1 Gm/Ns 50 Ml IVPB 100 mls/hr Q24H NATASHA Administration Dextrose 1,000 mls @ 100 mls/hr 07/25/24 04:38 Dextrose 5% 1,000 Ml IVPB PRN PRN Hypoglycemia Protocol Levofloxacin/Dextrose 750 mg in 150 mls @ 100 mls/hr 07/26/24 14:00 07/26/24 16:04 Levaquin 750 Mg/D5w 150 Ml IVPB 100 mls/hr Q48HR NATASHA Administration Ipratropium [place] 0.5 mg 07/26/24 12:00 07/27/24 16:44 Ipratropium Br 0.02% Inh Soln 0.5 Mg/2.5 Ml Vial INHALATION Not Given Q4HRT [facility] Levothyroxine Sodium 44 mcg 07/25/24 06:30 07/27/24 06:00 Levothyroxine Sodium 44 Mcg Tablet PO 44 mcg DAILY@0630 NATASHA Administration Metoprolol Succinate 12.5 mg 07/26/24 21:15 07/26/24 21:40 Metoprolol Succinate Ext Rel 12.5 Mg Tabcr PO 12.5 mg QHS NATASHA Administration Pravastatin Sodium 40 mg 07/25/24 09:00 07/27/24 08:50 Pravastatin Sodium 20 Mg Tablet BY MOUTH 40 mg DAILY NATASHA Administration Prednisone 40 mg 07/25/24 08:00 07/27/24 08:50 Prednisone 20 Mg Tablet PO 07/30/24 07:59 40 mg DAILY@0800 NATASHA Administration Promethazine HCl 12.5 mg 07/24/24 15:42 Promethazine Hcl 25 Mg/Ml Ampul IV PUSH Q6H PRN Nausea Sodium Chloride 10 ml 07/25/24 22:00 07/27/24 14:57 Central Line Flush IV PUSH 10 ml Q8HR NATASHA Administration Spironolactone 25 mg 07/25/24 09:00 07/27/24 08:50 Spironolactone 25 Mg Tablet PO 25 mg Q48H NATASHA Administration Tamsulosin HCl 0.4 mg 07/25/24 09:00 07/27/24 08:50 Tamsulosin Hcl 0.4 Mg Capsule PO 0.4 mg DAILY NATASHA Administration Radiology Results: ITS Impressions Chest X-Ray 07/25/24 23:14 IMPRESSION: No focal infiltrate or effusion. Stable volume loss within the left hemithorax with left apical scarring, unchanged. Chest CT 07/27/24 10:22 IMPRESSION: 1. Severe emphysema with several new pulmonary nodules in the right upper and lower lobes measuring up to 1 cm which are most likely infectious/inflammatory in etiology but would recommend 3 month follow-up low-dose noncontrast chest CT for further evaluation. 2. 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 3. Small right pleural effusion. Labs Labs: Laboratory Results - last 24 hr 07/27/24 05:59 WBC 12.3 H RBC 4.80 Hgb 9.2 L Hct 32.3 L MCV 67.3 L MCH 19.2 L MCHC 28.5 L RDW 19.0 H Plt Count 301 MPV 10.6 H
[2024-07-27] MEDS: FLECAINIDE ACETATE 100 MG TABLET PO (20:59)
[2024-07-27] MEDS: METOPROLOL SUCCINATE EXT REL 12.5 MG TABCR PO (21:00)
[2024-07-28] VITALS (31 sets, daily range): BP systolic 107–183; BP diastolic 55–89; PULSE 60–114; RESP 16–22; TEMP 36.1–36.8; O2SAT 94–100
[2024-07-28] MEDS: IPRATROPIUM BR 0.02% INH SOLN 0.5 MG/2.5 ML VIAL INHALATION ×6 (00:07→20:36)
[2024-07-28] MEDS: LEVOTHYROXINE SODIUM PO (05:36)
[2024-07-28] MEDS: CENTRAL LINE FLUSH 10 ML IV PUSH ×3 (05:47→22:25)
[2024-07-28] MEDS: EMPAGLIFLOZIN 25 MG TABLET BY MOUTH (08:21)
[2024-07-28] MEDS: APIXABAN 5 MG TABLET BY MOUTH ×2 (08:21→17:05)
[2024-07-28] MEDS: TAMSULOSIN HCL 0.4 MG CAPSULE PO (08:21)
[2024-07-28] MEDS: DUTASTERIDE 0.5 MG CAPSULE PO (08:22)
[2024-07-28] MEDS: GABAPENTIN 100 MG CAPSULE PO ×2 (08:22→17:06)
[2024-07-28] MEDS: FINASTERIDE 5 MG TABLET PO (08:22)
[2024-07-28] MEDS: PRAVASTATIN SODIUM 20 MG TABLET 40 MG BY MOUTH (08:22)
[2024-07-28] MEDS: FLECAINIDE ACETATE 100 MG TABLET PO ×2 (08:22→20:25)
[2024-07-28] MEDS: levoFLOXacin 750 MG/D5W 150 ML 750 MG/150 ML BAG 100 MG IVPB (08:23)
--- NOTE | 2024-07-28 08:29 | P.PNCA_ITS ---
Progress Note: A&P Assessment and Plan (1) SVT (supraventricular tachycardia): Code(s): I47.1 - Supraventricular tachycardia Status: Acute Plan Continue flecainide for his atrial flutter and observe telemetry while he is in the hospital. He has been taking systemic anticoagulation with apixaban chronically. This will be continued Shawn Hoffman MD [facility] Subjective Date/time seen: Date of service: 07/28/24 08:29 Interval history: Follow-up visit in this 84-year-old man with: Atrial flutter with RVR occurring in the setting of chronic lung disease, previous lung cancer surgery etc.. Patient was started on intravenous amiodarone last evening and earlier today has converted to sinus rhythm. He is asymptomatic at this time. 07/28/2024: Patient is feeling better he is breathing easier and does not have any cardiovascular complaints. Telemetry indicates he still maintaining sinus rhythm. He was happy to hear that he does not have to be electrically cardioverted. Exam Narrative: General: Alert oriented x3, no acute distress Neck: Supple, no JVD Chest: End-expiratory wheezes present, no rales or rhonchi Cardiac: S1, S2 +, regular rate, regular rhythm, no murmurs or rubs Extremities: No pedal edema, no skin rash Neurologic: Alert and oriented x3, no focal neurological deficits Const: General: comfortable and no acute distress Other: Pleasant elderly man no distress HENMT: Mouth: Yes moist mucous membranes Eyes: Sclera: sclerae normal Neck: Neck: supple Resp: Other: Breath sounds are diminished with few central rhonchi noted no pulmonary rales or wheezing Cardio: Rate: regular rate Rhythm: regular rhythm GI: Auscultation: normal bowel sounds Skin: General skin exam: normal color Neuro: Other: Alert and oriented x3 Objective Data Vital Signs Vital Signs: Vital Signs - 24 hr 07/27/24 10:00 07/27/24 10:07/27/24 10:00 Temperature 36.5 C Pulse Rate 128 H 127 H 128 H Respiratory Rate 20 Blood Pressure 129/80 129/80 Pulse Oximetry 100 Oxygen Delivery Oxygen Flow Rate Fraction of Inspired Oxygen 07/27/24 12:00 07/27/24 12:00 07/27/24 12:00 Temperature 36.0 C L Pulse Rate 128 H 128 H Respiratory Rate 20 Blood Pressure 129/75 129/75 Pulse Oximetry 91 100 Oxygen Delivery Nasal Cannula Oxygen Flow Rate 1 Fraction of Inspired Oxygen 07/27/24 12:00 07/27/24 12:53 07/27/24 12:53 Temperature Pulse Rate 134 H 75 75 Respiratory Rate Blood Pressure 129/75 129/75 Pulse Oximetry Oxygen Delivery Oxygen Flow Rate Fraction of Inspired Oxygen 07/27/24 12:55 07/27/24 13:12 07/27/24 14:00 Temperature Pulse Rate 121 H 122 H 78 Respiratory Rate 20 20 Blood Pressure Pulse Oximetry Oxygen Delivery Oxygen Flow Rate Fraction of Inspired Oxygen 07/27/24 14:00 07/27/24 14:38 07/27/24 16:00 Temperature 36.6 C Pulse Rate 78 77 71 Respiratory Rate 20 Blood Pressure 135/64 Pulse Oximetry 98 Oxygen Delivery Oxygen Flow Rate Fraction of Inspired Oxygen 07/27/24 16:00 07/27/24 16:09 07/27/24 18:00 Temperature 36.4 C Pulse Rate 73 78 Respiratory Rate 20 Blood Pressure 128/78 Pulse Oximetry 100 98 Oxygen Delivery Nasal Cannula Oxygen Flow Rate 1 Fraction of Inspired Oxygen 07/27/24 19:58 07/27/24 20:00 07/27/24 20:00 Temperature 36.5 C Pulse Rate 80 72 Respiratory Rate 17 Blood Pressure 118/76 Pulse Oximetry 91 98 Oxygen Delivery Nasal Cannula Oxygen Flow Rate 1 Fraction of Inspired Oxygen 07/27/24 20:31 07/27/24 20:41 07/27/24 20:45 Temperature Pulse Rate 122 H 122 H Respiratory Rate 20 20 Blood Pressure Pulse Oximetry 98 Oxygen Delivery Nasal Cannula Oxygen Flow Rate 1 Fraction of Inspired Oxygen 07/27/24 20:59 07/27/24 21:00 07/27/24 22:00 Temperature Pulse Rate 72 72 70 Respiratory Rate Blood Pressure Pulse Oximetry Oxygen Delivery Oxygen Flow Rate Fraction of Inspired Oxygen 07/28/24 00:00 07/28/24 00:00 07/28/24 00:00 Temperature 36.8 C Pulse Rate 67 65 Respiratory Rate 18 Blood Pressure 132/68 Pulse Oximetry 99 100 Oxygen Delivery Nasal Cannula Oxygen Flow Rate 1 Fraction of Inspired Oxygen 07/28/24 00:07 07/28/24 00:16 07/28/24 02:00 Temperature Pulse Rate 114 H 114 H 61 Respiratory Rate 20 20 Blood Pressure Pulse Oximetry Oxygen Delivery Oxygen Flow Rate Fraction of Inspired Oxygen 07/28/24 03:56 07/28/24 04:00 07/28/24 04:00 Temperature 36.5 C Pulse Rate 114 H 60 Respiratory Rate 20 18 Blood Pressure 121/55 L Pulse Oximetry 98 100 Oxygen Delivery Nasal Cannula Oxygen Flow Rate 1 Fraction of Inspired Oxygen 07/28/24 04:00 07/28/24 04:05 07/28/24 06:00 Temperature Pulse Rate 60 72 62 Respiratory Rate 20 Blood Pressure Pulse Oximetry Oxygen Delivery Oxygen Flow Rate Fraction of Inspired Oxygen 07/28/24 07:36 07/28/24 07:36 07/28/24 07:45 Temperature Pulse Rate 67 68 Respiratory Rate 20 18 Blood Pressure Pulse Oximetry 98 Oxygen Delivery Nasal Cannula Oxygen Flow Rate 1 Fraction of Inspired Oxygen 07/28/24 08:01 07/28/24 08:22 Temperature 36.1 C L Pulse Rate 65 75 Respiratory Rate 20 Blood Pressure 138/69 Pulse Oximetry 97 Oxygen Delivery Oxygen Flow Rate Fraction of Inspired Oxygen Intake/Output Intake/Output: Intake & Output 07/25/24 07/26/24 07/27/24 07/28/24 23:59 23:59 23:59 23:59 Intake Total 1450 2410.6 1646.1 Output Total 700 1300 850 375 Balance 750 1110.6 796.1 -375 Meds/Results Medications: Active Medications Generic Name Dose Route Start Last Admin Trade Name Freq PRN Reason Stop Dose Admin Acetaminophen 650 mg 07/24/24 15:42 Acetaminophen 325 Mg Tablet PO Q4H PRN Mild Pain (1-3) or Fever Hydrocodone Bitart/Acetaminophen 1 tab 07/24/24 15:42 Hydrocodone/Acetaminophen (*Crx) 5-325 Mg Tablet PO Q4H PRN Pain Rated 4-6 Apixaban 5 mg 07/25/24 09:00 07/28/24 08:21 Apixaban 5 Mg Tablet BY MOUTH 5 mg BID NATASHA Administration Dextrose 12.5 gm 07/25/24 04:38 07/25/24 04:57 Dextrose 50% 25 Gm/50 Ml Syringe IV PUSH 12.5 gm PRN PRN Administration Hypoglycemia Protocol Docusate Sodium 100 mg 07/25/24 09:00 07/28/24 08:21 Docusate Sodium 100 Mg Capsule PO Not Given DAILY NATASHA Dutasteride 0.5 mg 07/25/24 09:00 07/28/24 08:22 Dutasteride 0.5 Mg Capsule PO 0.5 mg DAILY NATASHA Administration Empagliflozin 25 mg 07/25/24 09:00 07/28/24 08:21 Empagliflozin 25 Mg Tablet BY MOUTH 25 mg DAILY NATASHA Administration Finasteride 5 mg 07/25/24 09:00 07/28/24 08:22 Finasteride 5 Mg Tablet PO 5 mg DAILY NATASHA Administration Flecainide Acetate 100 mg 07/27/24 21:00 07/28/24 08:22 Flecainide Acetate 100 Mg Tablet PO 100 mg Q12HR NATASHA Administration Gabapentin 100 mg 07/24/24 19:00 07/28/24 08:22 Gabapentin 100 Mg Capsule PO 100 mg BID NATASHA Administration Glucagon 1 mg 07/25/24 04:38 Glucagon For Inj 1 Mg Vial IM PRN PRN Hypoglycemia Protocol Glucose 15 gm 07/25/24 04:38 Glucose Oral Gel 15 Gm Of Glucse In 37.5 Gm Tube PO PRN PRN Hypoglycemia Protocol Guaifenesin 400 mg 07/27/24 09:13 Guaifenesin 200 Mg/10 Ml Udc PO Q8HR PRN Cough Heparin Sodium (Beef Lung) 50 units 07/26/24 09:00 07/28/24 08:23 Heparin Flush 50 Units/5 Ml Syringe IV PUSH 50 units QAM NATASHA Administration Heparin Sodium (Beef Lung) 50 units 07/25/24 18:45 Heparin Flush 50 Units/5 Ml Syringe IV PUSH PRN PRN after intermittent infusion Heparin Sodium (Beef Lung) 50 units 07/25/24 18:45 07/28/24 05:51 Heparin Flush 50 Units/5 Ml Syringe IV PUSH 50 units PRN PRN Administration after blood draws Heparin Sodium (Porcine) 500 units 07/25/24 18:45 Heparin Sodium Lock Flush 500 Units/5 Ml Syringe IV PUSH PRN PRN see comments below Ceftriaxone Sodium 1 gm in 50 mls @ 100 mls/hr 07/25/24 18:00 07/27/24 17:13 Rocephin 1 Gm/Ns 50 Ml IVPB 100 mls/hr Q24H NATASHA Administration Dextrose 1,000 mls @ 100 mls/hr 07/25/24 04:38 Dextrose 5% 1,000 Ml IVPB PRN PRN Hypoglycemia Protocol Levofloxacin/Dextrose 750 mg in 150 mls @ 100 mls/hr 07/26/24 14:00 07/28/24 08:23 Levaquin 750 Mg/D5w 150 Ml IVPB 100 mls/hr Q48HR NATASHA Administration Doxycycline Hyclate 100 mg in 100 mls @ 100 mls/hr 07/28/24 09:00 Vibramycin 100 Mg/Ns 100 Ml IVPB Q12HR NATASHA Ipratropium [place] 0.5 mg 07/26/24 12:00 07/28/24 07:36 Ipratropium Br 0.02% Inh Soln 0.5 Mg/2.5 Ml Vial INHALATION 0.5 mg Q4HRT [facility] Administration Levothyroxine Sodium 44 mcg 07/25/24 06:30 07/28/24 05:36 Levothyroxine Sodium 44 Mcg Tablet PO 44 mcg DAILY@0630 [facility] Administration Metoprolol Succinate 12.5 mg 07/26/24 21:15 07/27/24 21:00 Metoprolol Succinate Ext Rel 12.5 Mg Tabcr PO 12.5 mg QHS [facility] Administration Pravastatin Sodium 40 mg 07/25/24 09:00 07/28/24 08:22 Pravastatin Sodium 20 Mg Tablet BY MOUTH 40 mg DAILY [facility] Administration Prednisone 40 mg 07/25/24 08:00 07/28/24 08:21 Prednisone 20 Mg Tablet PO 07/30/24 07:59 40 mg DAILY@0800 [facility] Administration Promethazine HCl 12.5 mg 07/24/24 15:42 Promethazine Hcl 25 Mg/Ml Ampul IV PUSH Q6H PRN Nausea Sodium Chloride 10 ml 07/25/24 22:00 07/28/24 05:47 Central Line Flush IV PUSH 10 ml Q8HR NATASHA Administration Spironolactone 25 mg 07/25/24 09:00 07/27/24 08:50 Spironolactone 25 Mg Tablet PO 25 mg Q48H [facility] Administration Tamsulosin HCl 0.4 mg 07/25/24 09:00 07/28/24 08:21 Tamsulosin Hcl 0.4 Mg Capsule PO 0.4 mg DAILY NATASHA Administration Radiology Results: ITS Impressions Chest X-Ray 07/25/24 23:14 IMPRESSION: No focal infiltrate or effusion. Stable volume loss within the left hemithorax with left apical scarring, unchanged. Chest CT 07/27/24 10:22 IMPRESSION: 1. Severe emphysema with several new pulmonary nodules in the right upper and lower lobes measuring up to 1 cm which are most likely infectious/inflammatory in etiology but would recommend 3 month follow-up low-dose noncontrast chest CT for further evaluation. 2. 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 3. Small right pleural effusion.
[2024-07-28 09:11] LABS: Hematocrit 34.6 % (42.0-52.0); Hemoglobin 9.6 g/dL (14.0-18.0); Immature Granulocyte Percent A 0.5 % (0-0.5); Immature Platelet Fraction Pct 4.7 % (0.9-11.2); Lymphocytes Absolute Auto 0.57 K/mm3 (0.9-3.2); Mean Corpuscular HGB Conc 27.7 g/dl (32-36); Mean Corpuscular Hemoglobin 18.7 pg (26-34); Mean Corpuscular Volume 67.4 fl (80-100); Nucleated Red Blood Cells Absolute Auto 0.000 K/mm3 (0.0-0.012); Nucleated Red Blood Cells Perc 0.0 % (0.0-0.2); Platelet Count Result 313 k/mm3 (150-375); Red Blood Count 5.13 M/mm3 (4.6-6.20); White Blood Count 11.0 K/mm3 (4.5-10.0)
[2024-07-28 09:24] LABS: Alanine Aminotransferase 28 U/L (6-50); Albumin Level 2.8 g/dL (3.5-5.1); Alkaline Phosphatase 34 U/L (38-126); Anion Gap 6 mmol/L (4-12); Aspartate Amino Transferase 29 U/L (17-59); Bilirubin,Total 0.1 mg/dL (0.2-1.3); Blood Urea Nitrogen 32 mg/dL (9-20); Calcium 8.9 mg/dL (8.4-10.2); Carbon Dioxide 24 mmol/L (22-30); Chloride 107 mmol/L (98-107); Estimated CRCL calculation 37 ml/min; Estimated Glomerular Filt Rate 54; Glucose 75 mg/dL (65-110); Potassium 4.6 mmol/L (3.4-5.0); Sodium 137 mmol/L (137-145); Total Protein 5.6 g/dL (6.3-8.2)
[2024-07-28 09:31] LABS: Anisocytosis 1+; Hypochromasia 1+
[2024-07-28] MEDS: DOXYCYCLINE 100 MG/NS 100 ML 100 MG/100 ML BAG IVPB ×2 (09:31→20:25)
[2024-07-28 09:32] LABS: Acanthocytes 1+; Burr Cells 1+; Crenated RBC 1+; Ovalocytes 1+; Schistocytes None Seen; Stomatocytes 1+
[2024-07-28 10:20] LABS: Iron 26 ug/dL (49-181)
[2024-07-28 10:30] LABS: Percent Iron Saturation 9 % (20-50)
[2024-07-28 10:56] LABS: Ferritin 26.60 ng/mL (11.1-264)
--- NOTE | 2024-07-28 12:06 | P.PNIM_ITS ---
Progress Note: A&P Assessment and Plan (1) COPD exacerbation: Code(s): J44.1 - Chronic obstructive pulmonary disease with (acute) exacerbation Status: Acute Assessment and Plan: Gradually gettinng better Continue azithromycin Rocephin DuoNeb q.6 Solu-Medrol x1 followed by prednisone Guaifenesin incentive spirometer Chest x-ray with chronic interstitial change with left-sided volume loss unchanged from prior without focal infiltrate or effusion. Pulmonary consult noted Scheduled for CT chest today. (2) Atrial fibrillation with RVR: Code(s): I48.91 - Unspecified atrial fibrillation Status: Acute Assessment and Plan: Cardio consult noted. S/p Amiodarone Now on Flecainde, Metoprolol and Eliquis Will monitor (3) Heart failure with preserved ejection fraction: Qualifiers: Heart failure chronicity: unspecified Qualified Code(s): I50.30 - Unspecified diastolic (congestive) heart failure Code(s): I50.30 - Unspecified diastolic (congestive) heart failure Status: Acute Assessment and Plan: Patient given 3 L IV fluids and emergency room for elective acidosis, currently euvolemic Spironolactone per cardiology Monitor for fluid overload Improving, will monitor (4) Hyperlipidemia: Qualifiers: Hyperlipidemia type: mixed hyperlipidemia Qualified Code(s): E78.2 - Mixed hyperlipidemia Code(s): E78.5 - Hyperlipidemia, unspecified Status: Acute Assessment and Plan: Home medication (5) Hypothyroidism (acquired): Code(s): E03.9 - Hypothyroidism, unspecified Status: Acute Assessment and Plan: Home medications (6) BPH (benign prostatic hyperplasia): Qualifiers: Lower urinary tract symptom presence: symptoms present Lower urinary tract symptom detail: unspecified Qualified Code(s): N40.1 - Benign prostatic hyperplasia with lower urinary tract symptoms Code(s): N40.0 - Benign prostatic hyperplasia without lower urinary tract symptoms Status: Acute Assessment and Plan: Continue home meds Plan Hypoxic respiratory failure Likely from Pneumonia and COPD continue Rocephin, Doxycycline Currently on 1 liters monitor closely Pneumonia CT Chest showed possible pneumonia On Rocephin, Doxycycline added today SVT Elevated troponin likely demand from SVT Continue Flecainide, metoprolol and Eliquis Cardiology on board Atrial flutter with rapid ventricular rate ulcerated 146 on arrival. Back to sinus rhythm already. continue above care Anemia: Recent EGD and colonoscopy negative Iron deficiency Isat 9 and Ferritin 26 Started on venofer 500mg today and another tomorrow Hb 9.6 monitor Hypoglycemia: Not on any hypoglycemic agent. Will continue to monitor DVT prophylaxis on apixaban Subjective Date/time seen: 07/28/24 12:06 Interval history: comfortable at bedside Review of Systems Review of Systems: 12 systems were reviewed and are negativ e except for as per HPI. Exam Narrative: General: well appearing, appears stated age. 88 acute distress HEENT: normocephalic, atraumatic. Mucous membranes moist. Respiratory: Diminished lung sounds bilaterally no respiratory distress Cardiovascular: Regular rate and rhythm, normal S1-S2 upon ascultation. Abdomen: Soft, round, no pulsatile masses, nondistended and nontender. No rebound, no guarding. Extremities: No cyanosis, clubbing, or edema present. Pulses are palpable 2/2. Active ROM to all four extremities. Neuro: Alert and orientated x 4. PERRLA. Cranial nerves 2-12 intact without focal deficit. Skin: Warm, dry, and intact, without rash, erythema, or lesion. Psych: pleasant, cooperative, normal speech, normal affect, no hallucinations, no dysarthia Objective Data Vital Signs Vital Signs: Vital Signs - 24 hr 07/27/24 12:53 07/27/24 12:53 07/27/24 12:55 Temperature Pulse Rate 75 75 121 H Respiratory Rate 20 Blood Pressure 129/75 129/75 Pulse Oximetry Oxygen Delivery Oxygen Flow Rate Fraction of Inspired Oxygen 07/27/24 13:12 07/27/24 14:00 07/27/24 14:00 Temperature Pulse Rate 122 H 78 78 Respiratory Rate 20 Blood Pressure Pulse Oximetry Oxygen Delivery Oxygen Flow Rate Fraction of Inspired Oxygen 07/27/24 14:38 07/27/24 16:00 07/27/24 16:00 Temperature 97.9 F Pulse Rate 77 71 Respiratory Rate 20 Blood Pressure 135/64 Pulse Oximetry 98 100 Oxygen Delivery Nasal Cannula Oxygen Flow Rate 1 Fraction of Inspired Oxygen 07/27/24 16:09 07/27/24 18:00 07/27/24 19:58 Temperature 97.6 F 97.7 F Pulse Rate 73 78 80 Respiratory Rate 20 17 Blood Pressure 128/78 118/76 Pulse Oximetry 98 91 Oxygen Delivery Oxygen Flow Rate Fraction of Inspired Oxygen 07/27/24 20:00 07/27/24 20:00 07/27/24 20:31 Temperature Pulse Rate 72 122 H Respiratory Rate 20 Blood Pressure Pulse Oximetry 98 Oxygen Delivery Nasal Cannula Oxygen Flow Rate 1 Fraction of Inspired Oxygen 07/27/24 20:41 07/27/24 20:45 07/27/24 20:59 Temperature Pulse Rate 122 H 72 Respiratory Rate 20 Blood Pressure Pulse Oximetry 98 Oxygen Delivery Nasal Cannula Oxygen Flow Rate 1 Fraction of Inspired Oxygen 24 07/27/24 21:00 07/27/24 22:00 07/28/24 00:00 Temperature 98.2 F Pulse Rate 72 70 67 Respiratory Rate 18 Blood Pressure 132/68 Pulse Oximetry 99 Oxygen Delivery Oxygen Flow Rate Fraction of Inspired Oxygen 07/28/24 00:00 07/28/24 00:00 07/28/24 00:07 Temperature Pulse Rate 65 114 H Respiratory Rate 20 Blood Pressure Pulse Oximetry 100 Oxygen Delivery Nasal Cannula Oxygen Flow Rate 1 Fraction of Inspired Oxygen 07/28/24 00:16 07/28/24 02:00 07/28/24 03:56 Temperature Pulse Rate 114 H 61 114 H Respiratory Rate 20 20 Blood Pressure Pulse Oximetry Oxygen Delivery Oxygen Flow Rate Fraction of Inspired Oxygen 07/28/24 04:00 07/28/24 04:00 07/28/24 04:00 Temperature 97.7 F Pulse Rate 60 60 Respiratory Rate 18 Blood Pressure 121/55 L Pulse Oximetry 98 100 Oxygen Delivery Nasal Cannula Oxygen Flow Rate 1 Fraction of Inspired Oxygen 07/28/24 04:05 07/28/24 06:00 07/28/24 07:36 Temperature Pulse Rate 72 62 Respiratory Rate 20 Blood Pressure Pulse Oximetry 98 Oxygen Delivery Nasal Cannula Oxygen Flow Rate 1 Fraction of Inspired Oxygen 07/28/24 07:36 07/28/24 07:45 07/28/24 08:00 Temperature Pulse Rate 67 68 Respiratory Rate 20 18 Blood Pressure Pulse Oximetry 95 Oxygen Delivery Nasal Cannula Oxygen Flow Rate 1 Fraction of Inspired Oxygen 07/28/24 08:00 07/28/24 08:01 07/28/24 08:22 Temperature 96.9 F L Pulse Rate 72 65 75 Respiratory Rate 20 Blood Pressure 138/69 Pulse Oximetry 97 Oxygen Delivery Oxygen Flow Rate Fraction of Inspired Oxygen 07/28/24 10:00 07/28/24 11:21 07/28/24 11:30 Temperature Pulse Rate 67 66 67 Respiratory Rate 18 18 Blood Pressure Pulse Oximetry Oxygen Delivery Oxygen Flow Rate Fraction of Inspired Oxygen 07/28/24 11:37 07/28/24 11:51 Temperature 97.3 F L Pulse Rate 65 Respiratory Rate 18 Blood Pressure 107/89 Pulse Oximetry 96 97 Oxygen Delivery Nasal Cannula Oxygen Flow Rate 1 Fraction of Inspired Oxygen Intake/Output Intake/Output: Intake & Output 07/25/24 07/26/24 07/27/24 07/28/24 23:59 23:59 23:59 23:59 Intake Total 1450 2410.6 1646.1 490 Output Total 700 1300 850 375 Balance 750 1110.6 796.1 115 Meds/Results Medications: Active Medications Generic Name Dose Route Start Last Admin Trade Name Freq PRN Reason Stop Dose Admin Acetaminophen 650 mg 07/24/24 15:42 Acetaminophen 325 Mg Tablet PO Q4H PRN Mild Pain (1-3) or Fever Hydrocodone Bitart/Acetaminophen 1 tab 07/24/24 15:42 Hydrocodone/Acetaminophen (*Crx) 5-325 Mg Tablet PO Q4H PRN Pain Rated 4-6 Apixaban 5 mg 07/25/24 09:00 07/28/24 08:21 Apixaban 5 Mg Tablet BY MOUTH 5 mg BID NATASHA Administration Dextrose 12.5 gm 07/25/24 04:38 07/25/24 04:57 Dextrose 50% 25 Gm/50 Ml Syringe IV PUSH 12.5 gm PRN PRN Administration Hypoglycemia Protocol Docusate Sodium 100 mg 07/25/24 09:00 07/28/24 08:21 Docusate Sodium 100 Mg Capsule PO Not Given DAILY NATASHA Dutasteride 0.5 mg 07/25/24 09:00 07/28/24 08:22 Dutasteride 0.5 Mg Capsule PO 0.5 mg DAILY NATASHA Administration Empagliflozin 25 mg 07/25/24 09:00 07/28/24 08:21 Empagliflozin 25 Mg Tablet BY MOUTH 25 mg DAILY NATASHA Administration Finasteride 5 mg 07/25/24 09:00 07/28/24 08:22 Finasteride 5 Mg Tablet PO 5 mg DAILY NATASHA Administration Flecainide Acetate 100 mg 07/27/24 21:00 07/28/24 08:22 Flecainide Acetate 100 Mg Tablet PO 100 mg Q12HR NATASHA Administration Gabapentin 100 mg 07/24/24 19:00 07/28/24 08:22 Gabapentin 100 Mg Capsule PO 100 mg BID NATASHA Administration Glucagon 1 mg 07/25/24 04:38 Glucagon For Inj 1 Mg Vial IM PRN PRN Hypoglycemia Protocol Glucose 15 gm 07/25/24 04:38 Glucose Oral Gel 15 Gm Of Glucse In 37.5 Gm Tube PO PRN PRN Hypoglycemia Protocol Guaifenesin 400 mg 07/27/24 09:13 Guaifenesin 200 Mg/10 Ml Udc PO Q8HR PRN Cough Heparin Sodium (Beef Lung) 50 units 07/26/24 09:00 07/28/24 08:23 Heparin Flush 50 Units/5 Ml Syringe IV PUSH 50 units QAM NATASHA Administration Heparin Sodium (Beef Lung) 50 units 07/25/24 18:45 Heparin Flush 50 Units/5 Ml Syringe IV PUSH PRN PRN after intermittent infusion Heparin Sodium (Beef Lung) 50 units 07/25/24 18:45 07/28/24 05:51 Heparin Flush 50 Units/5 Ml Syringe IV PUSH 50 units PRN PRN Administration after blood draws Heparin Sodium (Porcine) 500 units 07/25/24 18:45 Heparin Sodium Lock Flush 500 Units/5 Ml Syringe IV PUSH PRN PRN see comments below Ceftriaxone Sodium 1 gm in 50 mls @ 100 mls/hr 07/25/24 18:00 07/27/24 17:13 Rocephin 1 Gm/Ns 50 Ml IVPB 100 mls/hr Q24H NATASHA Administration Dextrose 1,000 mls @ 100 mls/hr 07/25/24 04:38 Dextrose 5% 1,000 Ml IVPB PRN PRN Hypoglycemia Protocol Levofloxacin/Dextrose 750 mg in 150 mls @ 100 mls/hr 07/26/24 14:00 07/28/24 08:23 Levaquin 750 Mg/D5w 150 Ml IVPB 100 mls/hr Q48HR NATASHA Administration Doxycycline Hyclate 100 mg in 100 mls @ 100 mls/hr 07/28/24 09:00 07/28/24 09:31 Vibramycin 100 Mg/Ns 100 Ml IVPB 100 mls/hr Q12HR NATASHA Administration Ipratropium [place] 0.5 mg 07/26/24 12:00 07/28/24 11:19 Ipratropium Br 0.02% Inh Soln 0.5 Mg/2.5 Ml Vial INHALATION 0.5 mg Q4HRT NATASHA Administration Levothyroxine Sodium 44 mcg 07/25/24 06:30 07/28/24 05:36 Levothyroxine Sodium 44 Mcg Tablet PO 44 mcg DAILY@0630 NATASHA Administration Metoprolol Succinate 12.5 mg 07/26/24 21:15 07/27/24 21:00 Metoprolol Succinate Ext Rel 12.5 Mg Tabcr PO 12.5 mg QHS NATASHA Administration Pravastatin Sodium 40 mg 07/25/24 09:00 07/28/24 08:22 Pravastatin Sodium 20 Mg Tablet BY MOUTH 40 mg DAILY NATASHA Administration Prednisone 40 mg 07/25/24 08:00 07/28/24 08:21 Prednisone 20 Mg Tablet PO 07/30/24 07:59 40 mg DAILY@0800 NATASHA Administration Promethazine HCl 12.5 mg 07/24/24 15:42 Promethazine Hcl 25 Mg/Ml Ampul IV PUSH Q6H PRN Nausea Sodium Chloride 10 ml 07/25/24 22:00 07/28/24 05:47 Central Line Flush IV PUSH 10 ml Q8HR NATASHA Administration Spironolactone 25 mg 07/25/24 09:00 07/27/24 08:50 Spironolactone 25 Mg Tablet PO 25 mg Q48H NATASHA Administration Tamsulosin HCl 0.4 mg 07/25/24 09:00 07/28/24 08:21 Tamsulosin Hcl 0.4 Mg Capsule PO 0.4 mg DAILY NATASHA Administration Radiology Results: ITS Impressions Chest X-Ray 07/25/24 23:14 IMPRESSION: No focal infiltrate or effusion. Stable volume loss within the left hemithorax with left apical scarring, unchanged. Chest CT 07/27/24 10:22 IMPRESSION: 1. Severe emphysema with several new pulmonary nodules in the right upper and lower lobes measuring up to 1 cm which are most likely infectious/inflammatory in etiology but would recommend 3 month follow-up low-dose noncontrast chest CT for further evaluation. 2. Status post left upper lobectomy with paramediastinal scarring in the bilateral upper lobes with distribution suggesting sequela prior radiation cherelle tment. 3. Small right pleural effusion. Labs Labs: Laboratory Results - last 24 hr 07/28/24 07/28/24 05:45 09:35 WBC 11.0 H RBC 5.13 Hgb 9.6 L Hct 34.6 L MCV 67.4 L MCH 18.7 L MCHC 27.7 L RDW 19.2 H Plt Count 313 MPV 11.0 H Immature Gran % (Auto) 0.5 Neut % (Auto) 90.3 H Lymph % (Auto) 5.2 L [place] % (Auto) 3.9 Eos % (Auto) 0.0 Baso % (Auto) 0.1 L Lymph # (Auto) 0.57 L [place] # (Auto) 0.4 Eos # (Auto) 0.0 Baso # (Auto) 0.0 Abs Immat Gran (auto) 0.06 H Absolute Neuts (auto) 9.9 H Absolute Nucleated RBC 0.000 Band Neutrophils % Not Reportable Nucleated RBC % 0.0 Platelet Estimate Adequate % Immature Plt Fraction 4.7 Hypochromasia 1+ Anisocytosis 1+ Ovalocytes 1+ Stomatocytes 1+ River Cells 1+ Crenated Cell 1+ Acanthocytes (Spur) 1+ Schistocytes None seen Sodium 137 Potassium 4.6 Chloride 107 Carbon Dioxide 24 Anion Gap 6 BUN 32 H Creatinine 1.27 Estim Creat Clear Calc 37 Estimated GFR 54 L Glucose 75 Calcium 8.9 Iron 26 L TIBC 283 % Saturation 9 L Ferritin 26.60 Total Bilirubin 0.1 L AST 29 ALT 28 Alkaline Phosphatase 34 L Total Protein 5.6 L Albumin 2.8 L Quality VTE Prophylaxis VTE prophylaxis: mechanical ordered and pharmacologic ordered
[2024-07-28] MEDS: IRON SUCROSE COMPLEX 400 MG, IRON SUCROSE COMPLEX 100 MG in SODIUM CHLORIDE 0.9% IV 250 ML 78.57 MG IVPB (13:53)
--- NOTE | 2024-07-28 14:30 | P.PNPL_ITS ---
Progress Note: A&P Assessment and Plan (1) COPD exacerbation: Code(s): J44.1 - Chronic obstructive pulmonary disease with (acute) exacerbation Status: Acute Assessment and Plan: Patient with a 51 pack year tobacco use, quit 2007, also exposed to secondhand smoke from both of his parents. Tells me he was diagnosed 5-6 years ago with a breathing test but I do not have these results. CT scan of the chest from 04/05/2021 demonstrates severe apical greater than basilar predominant panlobular emphysema. Prior to admission he was not on any supplemental oxygen. He has dyspnea on exertion half a block and chronically produces phlegm at 2 to 3 times a day described aar and yellow. White blood cell count 519 2024 9.0 was 0% eosinophils. White blood cell count on 07/24/2024 18.9 with 0% eosinophils. He is maintained on Trelegy inhaler. Patient presents with worsening shortness of breath at rest and with activity, increased cough with no change in his baseline phlegm. He is treated for COPD exacerbation with Solu-Medrol, bronchodilators, ceftriaxone and azithromycin for possible pneumonia. 07/26/2024: Currently the patient tells me he is better. States he is breathing 80% back to his baseline. He has no cough, or fever. His phlegm production is the same as it was when he presented. Currently he is on 1 L nasal cannula saturations 100%. His white blood cell count is 12.1, his c reatinine is 1.26. He currently is tachycardic at 1:45 a.m. and an amiodarone her own drip is being started. He tells me he has phlegm that he is unable to expectorate. I recommended a D-dimer test and at this time he declines. Plan: Agree with treatment for COPD exacerbation. Currently the patient has no wheezing and is tachycardic with initiation of amiodarone drip for a flutter with RVR. Will continue prednisone 40 mg p.o. q.day, day 3 total systemic steroids. given his tachyarrhythmias I will discontinue beta agonist at this time and try to manage him with muscarinic antagonists. I will discontinue his Trelegy and his DuoNebs and place him on ipratropium nebulizers q.4 hours. If the patient's bronchospasm cannot be controlled with ipratropium nebulizers would add levalbuterol nebulizers rather than albuterol. I will continue guaifenesin 1200 mg p.o. b.i.d.. I will add a Cornet flutter valve. Goal saturation 90-94%. Currently the patient is on 1 L with saturations 100%. I will leave him on oxygen as his heart rate is 140-150 but will then wean his oxygen accordingly. I will check an alpha 1 anti trypsin genotype and level on 07/27/24. I will check an ABG to assess for hypercarbic respiratory failure. The patient is being treated for a pneumonia with ceftriaxone started on 07/24/2024, day 3. He was given azithromycin on 07/24/2022. I will start level Floxin 750 mg Q 48 hours given his creatinine clearance, today will be day 3 atypical coverage. I will order CT scan of the chest to assess for focal infiltrates. COVID influenza, RSV RT PCR assay negative. I will check a procalcitonin. I will send the respiratory pathogen panel, urine for Legionella antigen, urine for pneumococcal antigen, and a serum mycoplasma IgM. If there is no focal infiltrate consistent with pneumonia on his CT scan will consider deescalating just to levofloxacin alone for tracheobronchitis. patient currently has a tachy arrhythmia, Cardiology and hospitalist teams are following. Cumulative since admission he is positive 2.3 L. BNP was 7640 on 07/24. I will repeat a BNP. Lasix has been held. Of note patient is on Lasix 10 mg a day at home. Recommend diuresis as tolerated by his cardiac and renal systems per turnaround planner and hospitalist team. Discussed with Dr. Marie, we will follow with you. 07/27/24; He had a chest CT today showing IMPRESSION: 1. Severe emphysema with several new pulmonary nodules in the right upper and lower lobes measuring up to 1 cm which are most likely infectious/inflammatory in etiology but would recommend 3 month follow-up low-dose noncontrast chest CT for further evaluation. 2. 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 3. Small right pleural effusion. He tells me that he has a CT scheduled for August. He feels better today, less short of breath. Given the new nodules, I will continue Levaquin. 07/28/24; he is on 1 L/min, stable saturation, feeling better, heart rate controlled on oral flecainide per cardiology. WBC 11, lower, afebrile, normal respiratory rate. (2) Pulmonary embolism: Qualifiers: Pulmonary embolism type: unspecified Chronicity: unspecified Acute cor pulmonale presence: unspecified Qualified Code(s): I26.99 - Other pulmonary embolism without acute cor pulmonale Code(s): I26.99 - Other pulmonary embolism without acute cor pulmonale Status: Acute Assessment and Plan: Patient with a pulmonary embolism in 04/05/2021. Patient has history of lung cancer and tongue cancer. Currently he is anticoagulated with Eliquis. Plan: I ordered a D-dimer but at this time the patient is declining. Since he is going to be anticoagulated with Eliquis will not order CT angiogram of the chest currently. 07/27/24; no change in this condition. 07/28/24; stable (3) Metastatic lung cancer (metastasis from lung to other site): Qualifiers: Laterality: unspecified laterality Qualified Code(s): C34.90 - Malignant neoplasm of unspecified part of unspecified bronchus or lung Code(s): C34.90 - Malignant neoplasm of unspecified part of unspecified bronchus or lung Status: Acute Assessment and Plan: Regarding his lung cancer: Last office visit note I have is from 05/21/2024, Dr. 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 Both the lung lesion and the ipsilateral lymph node had increased FDG uptake on 10/25/2016. Came to [facility] on 11/17/2016 for further management. Carboplatin plus Pemetrexed x4 cycles ending 02/28/2017. Thoracic radiotherapy from 03/23/2017-04/12/2017. Carboplatin plus Pemetrexed x4 cycles ending 03/06/2018. Maintenance pemetrexed times 30 cycles ending 12/24/2019. Docetaxel X7 cycles ending 03/09/2021. plan for CT including the neck on 08/10/2024 and return to clinic on 08/20/2024. plan: Patient tells me he follows up with [facility] Oncology with a CT scan on 08/15/2024 and clinic visit on 08/20/2024 07/27/24; no change. Plan plan: no change in plans. He is stable, on 1 L, will get repeat chest CT next month per his [facility] oncologist. His new CT here shows RUL nodules, however his imaging is routinely elsewhere, so these may not be as new comared to his Q [address] Subjective Date/time seen: 07/28/24 14:30 Interval history: July 27, 2022; hospital f/u visit; 07/26/2024: This is a new pulmonary consult for COPD exacerbation 84-year-old male with past medical history HFpEF, hypertension, hyperlipidemia, COPD, pulmonary embolism, pericardial tamponade status post drain placement 04/06/2021, arthritis, head and neck cancer, hypothyroidism, vitamin-D deficiency, depression, anxiety, lung cancer, squamous cell lung cancer, BPH presents with chief complaints of shortness of breath. Regarding his lung cancer: Last office visit note I have is from 05/21/2024, Dr. 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 Both the lung lesion and the ipsilateral lymph node had increased FDG uptake on 10/25/2016. Came to [facility] on 11/17/2016 for further management. Carboplatinum plus Pemetrexed x4 cycles ending 02/28/2017. Thoracic radiotherapy from 03/23/2017-04/12/2017. Carboplatinum plus Pemetrexed x4 cycles ending 03/06/2018. Maintenancepemetrexed times 30 cycles ending 12/24/2019. Docetaxel X7 cycles ending 03/09/2021. regarding his squamous cell lung cancer: Cetuximab x4 cycles ending 03/26/2020. Concurrent radiation from 03/02/2020 through 03/20/2020. Pembrolizumab x6 cycles ending 09/29/2020. His main problem on 05/21/2024 was shortness of breath on exertion. [place] this was related to a COPD exacerbation and given prednisone 40 mg a day x5 days. CT of the neck on 08/10/2024 and return to clinic on 08/20/2024. Regarding his COPD tells me he was diagnosed 5-6 years ago and has been maintained on trilogy inhaler. He is not on oxygen at rest, with activity or with sleep. One year ago he tells me he could walk 1 block. A few weeks ago wh en he was at his baseline he tells me he can walk half a block. He has chronic phlegm production 2 to 3 times a day described as clear and yellow. Patient smoked 1 pack per day from [id number] for total of 51 pack years. Patient was exposed to secondhand smoke from both of his parents but none since. 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 He denies any sand blasting, welding, asbestos were, professional painting, steel stave mill hand, mining, construction work. Currently Patient tells me he was getting a bowel prep on 07/21/2024 for colonoscopy and that he was having to walk back and forth to the bathroom and this made him short of breath. he says he was otherwise fine with no respiratory issues. Patient had a colonoscopy in [facility] on 07/22/2024 and was discharged from these procedures in no respiratory distress without any respiratory complaints. On 07/23/2024 the patient felt that his breathing was stressed. He had shortness of breath at rest and with aches he of it he. He had a increased cough but no phlegm production. He denied fever. He called his PCP and was told to go to the emergency room. 07/24/2024: Patient presented to the emergency room with shortness of breath, Productive cough, worsening dyspnea on exertion. Blood pressure 99/72, heart rate 145, room air saturations 88%. Placed on 2 L with saturations 98%. White blood cell count 18.9, eosinophils 0%. Creatinine 1.58, BNP 7640. chest x-ray without focal infiltrate. Chest x-ray with volume loss on the left, right- sided port increased interstitial infiltrates at the bases. COVID, influenza, RSV RT PCR assay negative. Patient was in a flutter with RVR. patient was treated with Ceftriaxone and azithromycin for pneumonia, Solu-Medrol and bronchodilators for COPD exacerbation. patient required 2-4 L nasal cannula 07/25/2024: Patient developed a flutter with RVR, Eliquis restarted. patient required 1-4 L nasal cannula throughout the day 07/26/2024: Currently the patient tells me he is better. States he is breathing 80% back to his baseline. He has no cough, or fever. His phlegm production is the same as it was when he presented. Currently he is on 1 L terry al cannula saturations 100%. His white blood cell count is 12.1, his creatinine is 1.26. He currently is tachycardic at 1:45 a.m. and an amiodarone her own drip is being started. He tells me he has phlegm that he is unable to expectorate. I recommended a D-dimer test and at this time he declines. 07/27/24; he is sitting on the side of the bed, on laptop, in AA meeting. He feels better, less short of breath, less coughing. I talked with him about his 07/[address], new nodules RUL,with recommendation for 3 mo f/u; he has a chest CT scheduled for next month from his [facility] oncologist. He routinely sees Dr Willis, oncology and 3 cardiologists. He is on 1 L/min, saturation is 94-100%. Ankles are a little swollen, he says this is normal, he takes Lasix. 07/28/24; He feels better today, friend at bedside. He is less short of breath, less coughing. He legs are less swollen today. Overall feels improved. On 1 L/min, sat 94-100%. WBC is 11, lower. Aafebrile. DATA: 07/25/2024: CHEST RADIOGRAPH CLINICAL HISTORY: a fib . TECHNIQUE: Single portable view of the chest. FINDINGS Right internal jugular central venous port catheter with its tip projecting over the proximal right atrium. The remainder of the cardiomediastinal silhouette is otherwise unremarkable. Volume loss within the left hemithorax with left apical scarring, unchanged from prior. Severe centrilobular emphysematous disease with apical bulla suspected. Increased interstitial markings detected within the bilateral lung bases, unchanged from previous examination performed approximately 24 hours earlier. No pleural effusion is appreciated. IMPRESSION: No focal infiltrate or effusion. Stable volume loss within the left hemithorax with left apical scarring, unchanged. 04/05/2021: EXAMINATION: CTA chest PE protocol DATE: 04/05/2021 07:[address] MAGISTRATE INDICATION: Shortness of breath. Elevated d-dimer. TECHNIQUE: Computed tomographic angiography (CTA) of the chest was performed with 100 mL Omnipaque-350 intravenous contrast. The dose-length product was 487.85 mGy-cm. Maximum intensity projection 3D-reconstructions of the aorta and other arteries were constructed by the technologist on a separate workstation. COMPARISON: CT dated 10/11/2016. FINDINGS: There is right upper lobe pulmonary embolism, age indeterminate. There is a large pericardial effusion. Small pleural effusions. There is atherosclerosis of the aorta. There is a hyperdense right renal lesion which has increased in size compared with prior study severe emphysema. There is scarring at the lung apices. There is fibrosis in the lower lungs with underlying atelectasis. There are scattered areas of consolidation. Cannot exclude acute pneumonia. There is linear appearance to scarring in the left thorax medially, possibly radiation therapy.. Recommend correlation with ultrasound. There are nodular densities in the right upper and lower lobe laterally on the largest measuring 11 mm. Cannot exclude malignancy. IMPRESSION: 1. Pulmonary embolism right upper and lower lobes pulmonary artery, age indeterminate. 2: Irregular pleural-based nodules right upper lobe. Cannot exclude malignancy. Consider correlation with pet/CT scan or percutaneous biopsy. 3: Moderate pericardial effusion. Small pleural effusions. 4: Emphysema. 5: Hyperdense right renal lesion, enlarged since prior examination. Recommend correlation with ultrasound. Review of Systems Review of Systems: All systems reviewed & are unremarkable except as noted in HPI and below Exam Const: General: cooperative, healthy appearing and comfortable Orientation/consciousness: oriented to person, oriented to place and oriented to time HENMT: Head: normal to inspection Ears: hearing grossly normal bilaterally Eyes: General: appearance normal, both eyes and all related structures Neck: Neck: normal visual inspection Chest: Chest palpation & inspection: normal inspection of the chest Resp: Effort & Inspection: normal respiratory effort and able to speak in complete sentences Auscultation: crackles, no rales, no rhonchi, no wheezes and lung sounds not diminished Other: O2 at 1 L/minute saturation ranging from 94-100%, no increased effort Cardio: Jugular venous distension: no JVD GI: Inspection: normal to inspection GI Palp: No abdominal tenderness Skin: General skin exam: normal color Neuro: General: oriented to person, oriented to place and oriented to time Extrem: General: normal to inspection Psych: Appearance: grossly normal Objective Data Vital Signs Vital Signs: Vital Signs - 24 hr 07/27/24 14:38 07/27/24 16:00 07/27/24 16:00 Temperature 36.6 C Pulse Rate 77 71 Respiratory Rate 20 Blood Pressure 135/64 Pulse Oximetry 98 100 Oxygen Delivery Nasal Cannula Oxygen Flow Rate 1 Fraction of Inspired Oxygen 07/27/24 16:09 07/27/24 18:00 07/27/24 19:58 Temperature 36.4 C 36.5 C Pulse Rate 73 78 80 Respiratory Rate 20 17 Blood Pressure 128/78 118/76 Pulse Oximetry 98 91 Oxygen Delivery Oxygen Flow Rate Fraction of Inspired Oxygen 07/27/24 20:00 07/27/24 20:00 07/27/24 20:31 Temperature Pulse Rate 72 122 H Respiratory Rate 20 Blood Pressure Pulse Oximetry 98 Oxygen Delivery Nasal Cannula Oxygen Flow Rate 1 Fraction of Inspired Oxygen 07/27/24 20:41 07/27/24 20:45 07/27/24 20:59 Temperature Pulse Rate 122 H 72 Respiratory Rate 20 Blood Pressure Pulse Oximetry 98 Oxygen Delivery Nasal Cannula Oxygen Flow Rate 1 Fraction of Inspired Oxygen 24 07/27/24 21:00 07/27/24 22:00 07/28/24 00:00 Temperature 36.8 C Pulse Rate 72 70 67 Respiratory Rate 18 Blood Pressure 132/68 Pulse Oximetry 99 Oxygen Delivery Oxygen Flow Rate Fraction of Inspired Oxygen 07/28/24 00:00 07/28/24 00:00 07/28/24 00:07 Temperature Pulse Rate 65 114 H Respiratory Rate 20 Blood Pressure Pulse Oximetry 100 Oxygen Delivery Nasal Cannula Oxygen Flow Rate 1 Fraction of Inspired Oxygen 07/28/24 00:16 07/28/24 02:00 07/28/24 03:56 Temperature Pulse Rate 114 H 61 114 H Respiratory Rate 20 20 Blood Pressure Pulse Oximetry Oxygen Delivery Oxygen Flow Rate Fraction of Inspired Oxygen 07/28/24 04:00 07/28/24 04:00 07/28/24 04:00 Temperature 36.5 C Pulse Rate 60 60 Respiratory Rate 18 Blood Pressure 121/55 L Pulse Oximetry 98 100 Oxygen Delivery Nasal Cannula Oxygen Flow Rate 1 Fraction of Inspired Oxygen 07/28/24 04:05 07/28/24 06:00 07/28/24 07:36 Temperature Pulse Rate 72 62 Respiratory Rate 20 Blood Pressure Pulse Oximetry 98 Oxygen Delivery Nasal Cannula Oxygen Flow Rate 1 Fraction of Inspired Oxygen 07/28/24 07:36 07/28/24 07:45 07/28/24 08:00 Temperature Pulse Rate 67 68 Respiratory Rate 20 18 Blood Pressure Pulse Oximetry 95 Oxygen Delivery Nasal Cannula Oxygen Flow Rate 1 Fraction of Inspired Oxygen 07/28/24 08:00 07/28/24 08:01 07/28/24 08:22 Temperature 36.1 C L Pulse Rate 72 65 75 Respiratory Rate 20 Blood Pressure 138/69 Pulse Oximetry 97 Oxygen Delivery Oxygen Flow Rate Fraction of Inspired Oxygen 07/28/24 10:00 07/28/24 11:21 07/28/24 11:30 Temperature Pulse Rate 67 66 67 Respiratory Rate 18 18 Blood Pressure Pulse Oximetry Oxygen Delivery Oxygen Flow Rate Fraction of Inspired Oxygen 07/28/24 11:37 07/28/24 11:51 07/28/24 12:00 Temperature 36.3 C L Pulse Rate 65 75 Respiratory Rate 18 Blood Pressure 107/89 Pulse Oximetry 96 97 Oxygen Delivery Nasal Cannula Oxygen Flow Rate 1 Fraction of Inspired Oxygen 07/28/24 14:00 Temperature Pulse Rate 72 Respiratory Rate Blood Pressure Pulse Oximetry Oxygen Delivery Oxygen Flow Rate Fraction of Inspired Oxygen Intake/Output Intake/Output: Intake & Output 07/25/24 07/26/24 07/27/24 07/28/24 23:59 23:59 23:59 23:59 Intake Total 1450 2410.6 1646.1 730 Output Total 700 1300 850 375 Balance 750 1110.6 796.1 355 Meds/Results Medications: Active Medications Generic Name Dose Route Start Last Admin Trade Name Freq PRN Reason Stop Dose Admin Acetaminophen 650 mg 07/24/24 15:42 Acetaminophen 325 Mg Tablet PO Q4H PRN Mild Pain (1-3) or Fever Hydrocodone Bitart/Acetaminophen 1 tab 07/24/24 15:42 Hydrocodone/Acetaminophen (*Crx) 5-325 Mg Tablet PO Q4H PRN Pain Rated 4-6 Apixaban 5 mg 07/25/24 09:00 07/28/24 08:21 Apixaban 5 Mg Tablet BY MOUTH 5 mg BID NATASHA Administration Dextrose 12.5 gm 07/25/24 04:38 07/25/24 04:57 Dextrose 50% 25 Gm/50 Ml Syringe IV PUSH 12.5 gm PRN PRN Administration Hypoglycemia Protocol Docusate Sodium 100 mg 07/25/24 09:00 07/28/24 08:21 Docusate Sodium 100 Mg Capsule PO Not Given DAILY NATASHA Dutasteride 0.5 mg 07/25/24 09:00 07/28/24 08:22 Dutasteride 0.5 Mg Capsule PO 0.5 mg DAILY NATASHA Administration Empagliflozin 25 mg 07/25/24 09:00 07/28/24 08:21 Empagliflozin 25 Mg Tablet BY MOUTH 25 mg DAILY NATASHA Administration Finasteride 5 mg 07/25/24 09:00 07/28/24 08:22 Finasteride 5 Mg Tablet PO 5 mg DAILY NATASHA Administration Flecainide Acetate 100 mg 07/27/24 21:00 07/28/24 08:22 Flecainide Acetate 100 Mg Tablet PO 100 mg Q12HR NATASHA Administration Gabapentin 100 mg 07/24/24 19:00 07/28/24 08:22 Gabapentin 100 Mg Capsule PO 100 mg BID NATASHA Administration Glucagon 1 mg 07/25/24 04:38 Glucagon For Inj 1 Mg Vial IM PRN PRN Hypoglycemia Protocol Glucose 15 gm 07/25/24 04:38 Glucose Oral Gel 15 Gm Of Glucse In 37.5 Gm Tube PO PRN PRN Hypoglycemia Protocol Guaifenesin 400 mg 07/27/24 09:13 Guaifenesin 200 Mg/10 Ml Udc PO Q8HR PRN Cough Heparin Sodium (Beef Lung) 50 units 07/26/24 09:00 07/28/24 08:23 Heparin Flush 50 Units/5 Ml Syringe IV PUSH 50 units QAM NATASHA Administration Heparin Sodium (Beef Lung) 50 units 07/25/24 18:45 Heparin Flush 50 Units/5 Ml Syringe IV PUSH PRN PRN after intermittent infusion Heparin Sodium (Beef Lung) 50 units 07/25/24 18:45 07/28/24 05:51 Heparin Flush 50 Units/5 Ml Syringe IV PUSH 50 units PRN PRN Administration after blood draws Heparin Sodium (Porcine) 500 units 07/25/24 18:45 Heparin Sodium Lock Flush 500 Units/5 Ml Syringe IV PUSH PRN PRN see comments below Ceftriaxone Sodium 1 gm in 50 mls @ 100 mls/hr 07/25/24 18:00 07/27/24 17:13 Rocephin 1 Gm/Ns 50 Ml IVPB 100 mls/hr Q24H NATASHA Administration Dextrose 1,000 mls @ 100 mls/hr 07/25/24 04:38 Dextrose 5% 1,000 Ml IVPB PRN PRN Hypoglycemia Protocol Levofloxacin/Dextrose 750 mg in 150 mls @ 100 mls/hr 07/26/24 14:00 07/28/24 08:23 Levaquin 750 Mg/D5w 150 Ml IVPB 100 mls/hr Q48HR NATASHA Administration Doxycycline Hyclate 100 mg in 100 mls @ 100 mls/hr 07/28/24 09:00 07/28/24 09:31 Vibramycin 100 Mg/Ns 100 Ml IVPB 100 mls/hr Q12HR NATASHA Administration Iron Sucrose 400 mg/ Iron 275 mls @ 78.571 mls/hr 07/28/24 13:00 07/28/24 13:53 Sucrose 100 mg/ Sodium IVPB 07/28/24 16:29 78.57 mls/hr Chloride ONCE ONE Administration Iron Sucrose 400 mg/ Iron 275 mls @ 78.571 mls/hr 07/29/24 09:00 Sucrose 100 mg/ Sodium IVPB 07/29/24 12:29 Chloride ONCE ONE Ipratropium [place] 0.5 mg 07/26/24 12:00 07/28/24 11:19 Ipratropium Br 0.02% Inh Soln 0.5 Mg/2.5 Ml Vial INHALATION 0.5 mg Q4HRT NATASHA Administration Levothyroxine Sodium 44 mcg 07/25/24 06:30 07/28/24 05:36 Levothyroxine Sodium 44 Mcg Tablet PO 44 mcg DAILY@0630 NATASHA Administration Metoprolol Succinate 12.5 mg 07/26/24 21:15 07/27/24 21:00 Metoprolol Succinate Ext Rel 12.5 Mg Tabcr PO 12.5 mg QHS NATASHA Administration Pravastatin Sodium 40 mg 07/25/24 09:00 07/28/24 08:22 Pravastatin Sodium 20 Mg Tablet BY MOUTH 40 mg DAILY NATASHA Administration Prednisone 40 mg 07/25/24 08:00 07/28/24 08:21 Prednisone 20 Mg Tablet PO 07/30/24 07:59 40 mg DAILY@0800 NATASHA Administration Promethazine HCl 12.5 mg 07/24/24 15:42 Promethazine Hcl 25 Mg/Ml Ampul IV PUSH Q6H PRN Nausea Sodium Chloride 10 ml 07/25/24 22:00 07/28/24 13:54 Central Line Flush IV PUSH 10 ml Q8HR NATASHA Administration Spironolactone 25 mg 07/25/24 09:00 07/27/24 08:50 Spironolactone 25 Mg Tablet PO 25 mg Q48H NATASHA Administration Tamsulosin HCl 0.4 mg 07/25/24 09:00 07/28/24 08:21 Tamsulosin Hcl 0.4 Mg Capsule PO 0.4 mg DAILY NATASHA Administration Radiology Results: ITS Impressions Chest X-Ray 07/25/24 23:14 IMPRESSION: No focal infiltrate or effusion. Stable volume loss within the left hemithorax with left apical scarring, unchanged. Chest CT 07/27/24 10:22 IMPRESSION: 1. Severe emphysema with several new pulmonary nodules in the right upper and lower lobes measuring up to 1 cm which are most likely infectious/inflammatory in etiology but would recommend 3 month follow-up low-dose noncontrast chest CT for further evaluation. 2. 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 3. Small right pleural effusion. Labs Labs: Laboratory Results - last 24 hr 07/28/24 07/28/24 05:45 09:35 WBC 11.0 H RBC 5.13 Hgb 9.6 L Hct 34.6 L MCV 67.4 L MCH 18.7 L MCHC 27.7 L RDW 19.2 H Plt Count 313 MPV 11.0 H Immature Gran % (Auto) 0.5 Neut % (Auto) 90.3 H Lymph % (Auto) 5.2 L [place] % (Auto) 3.9 Eos % (Auto) 0.0 Baso % (Auto) 0.1 L Lymph # (Auto) 0.57 L [place] # (Auto) 0.4 Eos # (Auto) 0.0 Baso # (Auto) 0.0 Abs Immat Gran (auto) 0.06 H Absolute Neuts (auto) 9.9 H Absolute Nucleated RBC 0.000 Band Neutrophils % Not Reportable Nucleated RBC % 0.0 Platelet Estimate Adequate % Immature Plt Fraction 4.7 Hypochromasia 1+ Anisocytosis 1+ Ovalocytes 1+ Stomatocytes 1+ River Cells 1+ Crenated Cell 1+ Acanthocytes (Spur) 1+ Schistocytes None seen Sodium 137 Potassium 4.6 Chloride 107 Carbon Dioxide 24 Anion Gap 6 BUN 32 H Creatinine 1.27 Estim Creat Clear Calc 37 Estimated GFR 54 L Glucose 75 Calcium 8.9 Iron 26 L TIBC 283 % Saturation 9 L Ferritin 26.60 Total Bilirubin 0.1 L AST 29 ALT 28 Alkaline Phosphatase 34 L Total Protein 5.6 L Albumin 2.8 L
[2024-07-28] MEDS: METOPROLOL SUCCINATE EXT REL 12.5 MG TABCR PO (20:25)
[2024-07-29] VITALS (19 sets, daily range): BP systolic 130–157; BP diastolic 60–88; PULSE 55–80; RESP 16–22; TEMP 36.4–36.8; O2SAT 93–98
[2024-07-29] MEDS: IPRATROPIUM BR 0.02% INH SOLN 0.5 MG/2.5 ML VIAL INHALATION ×3 (00:12→08:14)
[2024-07-29] MEDS: LEVOTHYROXINE SODIUM PO (05:33)
[2024-07-29] MEDS: CENTRAL LINE FLUSH 10 ML IV PUSH ×3 (05:43→21:51)
[2024-07-29 05:55] LABS: Hematocrit 35.6 % (42.0-52.0); Hemoglobin 10.1 g/dL (14.0-18.0); Immature Granulocyte Percent A 0.8 % (0-0.5); Immature Platelet Fraction Pct 4.0 % (0.9-11.2); Lymphocytes Absolute Auto 0.82 K/mm3 (0.9-3.2); Mean Corpuscular HGB Conc 28.4 g/dl (32-36); Mean Corpuscular Hemoglobin 18.8 pg (26-34); Mean Corpuscular Volume 66.4 fl (80-100); Nucleated Red Blood Cells Absolute Auto 0.000 K/mm3 (0.0-0.012); Nucleated Red Blood Cells Perc 0.0 % (0.0-0.2); Platelet Count Result 332 k/mm3 (150-375); Red Blood Count 5.36 M/mm3 (4.6-6.20); White Blood Count 13.4 K/mm3 (4.5-10.0)
[2024-07-29 06:19] LABS: Alanine Aminotransferase 27 U/L (6-50); Albumin Level 2.8 g/dL (3.5-5.1); Alkaline Phosphatase 32 U/L (38-126); Anion Gap 4 mmol/L (4-12); Aspartate Amino Transferase 24 U/L (17-59); Bilirubin,Total 0.2 mg/dL (0.2-1.3); Blood Urea Nitrogen 33 mg/dL (9-20); Calcium 8.6 mg/dL (8.4-10.2); Carbon Dioxide 25 mmol/L (22-30); Chloride 106 mmol/L (98-107); Estimated CRCL calculation 40 ml/min; Estimated Glomerular Filt Rate 59; Glucose 83 mg/dL (65-110); Magnesium 2.1 mg/dL (1.6-2.3); Potassium 4.7 mmol/L (3.4-5.0); Sodium 135 mmol/L (137-145); Total Protein 5.5 g/dL (6.3-8.2)
[2024-07-29 06:25] LABS: Anisocytosis 1+
[2024-07-29 06:26] LABS: Burr Cells 1+; Hypochromasia 2+; Ovalocytes 1+; Schistocytes None Seen
[2024-07-29] MEDS: FLECAINIDE ACETATE 100 MG TABLET PO ×2 (08:29→21:50)
[2024-07-29] MEDS: GABAPENTIN 100 MG CAPSULE PO ×2 (08:29→16:37)
[2024-07-29] MEDS: TAMSULOSIN HCL 0.4 MG CAPSULE PO (08:30)
[2024-07-29] MEDS: FINASTERIDE 5 MG TABLET PO (08:30)
[2024-07-29] MEDS: EMPAGLIFLOZIN 25 MG TABLET BY MOUTH (08:30)
[2024-07-29] MEDS: DOCUSATE SODIUM 100 MG CAPSULE PO (08:30)
[2024-07-29] MEDS: APIXABAN 5 MG TABLET BY MOUTH ×2 (08:30→16:37)
[2024-07-29] MEDS: DUTASTERIDE 0.5 MG CAPSULE PO (08:30)
[2024-07-29] MEDS: DOXYCYCLINE 100 MG/NS 100 ML 100 MG/100 ML BAG IVPB (08:31)
[2024-07-29] MEDS: IRON SUCROSE COMPLEX 400 MG, IRON SUCROSE COMPLEX 100 MG in SODIUM CHLORIDE 0.9% IV 250 ML 78.57 MG IVPB (08:31)
[2024-07-29 08:33] LABS: NT Pro B Type Natriuretic Pept 1590 pg/mL (19.9-100)
[2024-07-29] MEDS: PRAVASTATIN SODIUM 20 MG TABLET 40 MG BY MOUTH (08:34)
[2024-07-29 09:49] LABS: Procalcitonin 0.3 ng/mL
--- NOTE | 2024-07-29 11:55 | PM.PNPUL ---
Progress Note: A&P Assessment and Plan (1) COPD exacerbation: Code(s): J44.1 - Chronic obstructive pulmonary disease with (acute) exacerbation Status: Acute Assessment and Plan: Patient with a 51 pack year tobacco use, quit 2007, also exposed to secondhand smoke from both of his parents. Tells me he was diagnosed 5-6 years ago with a breathing test but I do not have these results. CT scan of the chest from 04/05/2021 demonstrates severe apical greater than basilar predominant panlobular emphysema. Prior to admission he was not on any supplemental oxygen. He has dyspnea on exertion half a block and chronically produces phlegm at 2 to 3 times a day described aar and yellow. White blood cell count 519 2024 9.0 was 0% eosinophils. White blood cell count on 07/24/2024 18.9 with 0% eosinophils. He is maintained on Trelegy inhaler. Patient presents with worsening shortness of breath at rest and with activity, increased cough with no change in his baseline phlegm. He is treated for COPD exacerbation with Solu-Medrol, bronchodilators, ceftriaxone and azithromycin for possible pneumonia. 07/26/2024: Currently the patient tells me he is better. States he is breathing 80% back to his baseline. He has no cough, or fever. His phlegm production is the same as it was when he presented. Currently he is on 1 L nasal cannula saturations 100%. His white blood cell count is 12.1, his creatinine is 1.26. He currently is tachycardic at 1:45 a.m. and an amiodarone her own drip is being started. He tells me he has phlegm that he is unable to expectorate. I recommended a D-dimer test and at this time he declines. Plan: Agree with treatment for COPD exacerbation. Currently the patient has no wheezing and is tachycardic with initiation of amiodarone drip for a flutter with RVR. Will continue prednisone 40 mg p.o. q.day, day 3 total systemic steroids. given his tachyarrhythmias I will discontinue beta agonist at this time and try to manage him with muscarinic antagonists. I will discontinue his Trelegy and his DuoNebs and place him on ipratropium nebulizers q.4 hours. If the patient's bronchospasm cannot be controlled with ipratropium nebulizers would add levalbuterol nebulizers rather than albuterol. I will continue guaifenesin 1200 mg p.o. b.i.d.. I will add a Cornet flutter valve. Goal saturation 90-94%. Currently the patient is on 1 L with saturations 100%. I will leave him on oxygen as his heart rate is 140-150 but will then wean his oxygen accordingly. I will check an alpha 1 anti trypsin genotype and level on 07/27/24. I will check an ABG to assess for hypercarbic respiratory failure. The patient is being treated for a pneumonia with ceftriaxone started on 07/24/2024, day 3. He was given azithromycin on 07/24/2022. I will start level Floxin 750 mg Q 48 hours given his creatinine clearance, today will be day 3 atypical coverage. I will order CT scan of the chest to assess for focal infiltrates. COVID influenza, RSV RT PCR assay negative. I will check a procalcitonin. I will send the respiratory pathogen panel, urine for Legionella antigen, urine for pneumococcal antigen, and a serum mycoplasma IgM. If there is no focal infiltrate consistent with pneumonia on his CT scan will consider deescalating just to levofloxacin alone for tracheobronchitis. patient currently has a tachy arrhythmia, Cardiology and hospitalist teams are following. Cumulative since admission he is positive 2.3 L. BNP was 7640 on 07/24. I will repeat a BNP. Lasix has been held. Of note patient is on Lasix 10 mg a day at home. Recommend diuresis as tolerated by his cardiac and renal systems per customer business manager and hospitalist team. Discussed with Dr. Marie, we will follow with you. 07/27/24; He had a chest CT today showing IMPRESSION: 1. Severe emphysema with several new pulmonary nodules in the right upper and lower lobes measuring up to 1 cm which are most likely infectious/inflammatory in etiology but would recommend 3 month follow-up low-dose noncontrast chest CT for further evaluation. 2. 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 3. Small right pleural effusion. He tells me that he has a CT scheduled for August. He feels better today, less short of breath. Given the new nodules, I will continue Levaquin. 07/28/24; he is on 1 L/min, stable saturation, feeling better, heart rate controlled on oral flecainide per cardiology. WBC 11, lower, afebrile, normal respiratory rate. 07/29/24: Patient tells me he is improved. He is breathing 95% back to his baseline. He has no rest shortness of breath and his dyspnea on exertion is at his baseline. He has no cough with some phlegm production that is mostly clear and yellow and not green anymore. Currently he is on 1 L nasal cannula saturations 97%. He is afebrile. White blood cell count 13.4, creatinine 1.17. BNP has improved from 8610 on 07/26/2024 to a value of 1590 today. Procalcitonin today is 0.3. Cumulative he is positive 5.6 L since admission and his weight is 70.5 kg today. From a pulmonary perspective patient is ready to be discharged on these pulmonary medicines: Levofloxacin 750 mg p.o. Q 48 hours last dose on 08/01/2024 Trelegy 100-62.5-25 at 1 puff q.day rescue albuterol inhaler 2 puffs q.4 hours p.r.n. shortness of breath or wheezing. Albuterol nebulizer 2.5 mg q.4 hours p.r.n. shortness of breath or wheezing Oxygen at rest and with activity per home O2 assessment prior to being discharged from his rehab setting. Currently he is on 1 L with saturations 97%. Oxygen at night per home O2 assessment at the rehab facility prior to discharge. Patient will follow up with his PCP Dr. Willis. discussed with Dr. Russo, will sign off, call with questions. (2) Pulmonary embolism: Qualifiers: Pulmonary embolism type: unspecified Chronicity: unspecified Acute cor pulmonale presence: unspecified Qualified Code(s): I26.99 - Other pulmonary embolism without acute cor pulmonale Code(s): I26.99 - Other pulmonary embolism without acute cor pulmonale Status: Acute Assessment and Plan: Patient with a pulmonary embolism in 04/05/2021. Patient has history of lung cancer and tongue cancer. Currently he is anticoagulated with Eliquis. Plan: I ordered a D-dimer but at this time the patient is declining. Since he is going to be anticoagulated with Eliquis will not order CT angiogram of the chest currently. 07/27/24; no change in this condition. 07/28/24; stable 07/29/24: Patient to be discharged on Eliquis 5 mg p.o. b.i.d. for his atrial flutter. (3) Metastatic lung cancer (metastasis from lung to other site): Qualifiers: Laterality: unspecified laterality Qualified Code(s): C34.90 - Malignant neoplasm of unspecified part of unspecified bronchus or lung Code(s): C34.90 - Malignant neoplasm of unspecified part of unspecified bronchus or lung Status: Acute Assessment and Plan: 07/26/24: Regarding his lung cancer: Last office visit note I have is from 05/21/2024, Dr. 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 Both the lung lesion and the ipsilateral lymph node had increased FDG uptake on 10/25/2016. Came to [facility] on 11/17/2016 for further management. Carboplatin plus Pemetrexed x4 cycles ending 02/28/2017. Thoracic radiotherapy from 03/23/2017-04/12/2017. Carboplatin plus Pemetrexed x4 cycles ending 03/06/2018. Maintenance pemetrexed times 30 cycles ending 12/24/2019. Docetaxel X7 cycles ending 03/09/2021. plan for CT including the neck on 08/10/2024 and return to clinic on 08/20/2024. plan: Patient tells me he follows up with [facility] with a CT scan on 08/15/2024 and clinic visit on 08/20/2024 Subjective Date/time seen: 07/29/24 11:55 Interval history: July 27, 2022; hospital f/u visit; 07/26/2024: This is a new pulmonary consult for COPD exacerbation 84-year-old male with past medical history HFpEF, hypertension, hyperlipidemia, COPD, pulmonary embolism, pericardial tamponade status post drain placement 04/06/2021, arthritis, head and neck cancer, hypothyroidism, vitamin-D deficiency, depression, anxiety, lung cancer, squamous cell lung cancer, BPH presents with chief complaints of shortness of breath. Regarding his lung cancer: Last office visit note I have is from 05/21/2024, Dr. 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 Both the lung lesion and the ipsilateral lymph node had increased FDG uptake on 10/25/2016. Came to site [facility] on 11/17/2016 for further management. Carboplatinum plus Pemetrexed x4 cycles ending 02/28/2017. Thoracic radiotherapy from 03/23/2017-04/12/2017. Carboplatinum plus Pemetrexed x4 cycles ending 03/06/2018. Maintenancepemetrexed times 30 cycles ending 12/24/2019. Docetaxel X7 cycles ending 03/09/2021. regarding his squamous cell lung cancer: Cetuximab x4 cycles ending 03/26/2020. Concurrent radiation from 03/02/2020 through 03/20/2020. Pembrolizumab x6 cycles ending 09/29/2020. His main problem on 05/21/2024 was shortness of breath on exertion. Gypsy this was related to a COPD exacerbation and given prednisone 40 mg a day x5 days. CT of the neck on 08/10/2024 and return to clinic on 08/20/2024. Regarding his COPD tells me he was diagnosed 5-6 years ago and has been maintained on trilogy inhaler. He is not on oxygen at rest, with activity or with sleep. One year ago he tells me he could walk 1 block. A few weeks ago when he was at his baseline he tells me he can walk half a block. He has chronic phlegm production 2 to 3 times a day described as clear and yellow. Patient smoked 1 pack per day from [id number] for total of 51 pack years. Patient was exposed to secondhand smoke from both of his parents but none since. 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 He denies any sand blasting, welding, asbestos were, professional painting, steel hot mill supervisor, mining, construction work. Currently Patient tells me he was getting a bowel prep on 07/21/2024 for colonoscopy and that he was having to walk back and forth to the bathroom and this made him short of breath. he says he was otherwise fine with no respiratory issues. Patient had a colonoscopy in [facility] on 07/22/2024 and was discharged from these procedures in no respiratory distress without any respiratory complaints. On 07/23/2024 the patient felt that his breathing was stressed. He had shortness of breath at rest and with aches he of it he. He had a increased cough but no phlegm production. He denied fever. He called his PCP and was told to go to the emergency room. 07/24/2024: Patient presented to the emergency room with shortness of breath, Productive cough, worsening dyspnea on exertion. Blood pressure 99/72, heart rate 145, room air saturations 88%. Placed on 2 L with saturations 98%. White blood cell count 18.9, eosinophils 0%. Creatinine 1.58, BNP 7640. chest x-ray without focal infiltrate. Chest x-ray with volume loss on the left, right-sided port increased interstitial infiltrates at the bases. COVID, influenza, RSV RT PCR assay negative. Patient was in a flutter with RVR. patient was treated with Ceftriaxone and azithromycin for pneumonia, Solu-Medrol and bronchodilators for COPD exacerbation. patient required 2-4 L nasal cannula 07/25/2024: Patient developed a flutter with RVR, Eliquis restarted. patient required 1-4 L nasal cannula throughout the day 07/26/2024: Currently the patient tells me he is better. States he is breathing 80% back to his baseline. He has no cough, or fever. His phlegm production is the same as it was when he presented. Currently he is on 1 L nasal cannula saturations 100%. His white blood cell count is 12.1, his creatinine is 1.26. He currently is tachycardic at 1:45 a.m. and an amiodarone her own drip is being started. He tells me he has phlegm that he is unable to expectorate. I recommended a D-dimer test and at this time he declines. 07/27/24; he is sitting on the side of the bed, on laptop, in AA meeting. He feels better, less short of breath, less coughing. I talked with him about his 07/[address], new nodules RUL,with recommendation for 3 mo f/u; he has a chest CT [facility] He routinely sees Dr Willis, oncology and 3 cardiologists. He is on 1 L/min, saturation is 94-100%. Ankles are a little swollen, he says this is normal, he takes Lasix. 07/28/24; He feels better today, friend at bedside. He is less short of breath, less coughing. He legs are less swollen today. Overall feels improved. On 1 L/min, sat 94-100%. WBC is 11, lower. Aafebrile. 07/29/24: Patient tells me he is improved. He is breathing 95% back to his baseline. He has no rest shortness of breath and his dyspnea on exertion is at his baseline. He has no cough with some phlegm production that is mostly clear and yellow and not green anymore. Currently he is on 1 L nasal cannula saturations 97%. He is afebrile. White blood cell count 13.4, creatinine 1.17. BNP has improved from 8610 on 07/26/2024 to a value of 1590 today. Procalcitonin today is 0.3. Cumulative he is positive 5.6 L since admission and his weight is 70.5 kg today. DATA: 07/25/2024: CHEST RADIOGRAPH CLINICAL HISTORY: a fib . TECHNIQUE: Single portable view of the chest. FINDINGS Right internal jugular central venous port catheter with its tip projecting over the proximal right atrium. The remainder of the cardiomediastinal silhouette is otherwise unremarkable. Volume loss within the left hemithorax with left apical scarring, unchanged from prior. Severe centrilobular emphysematous disease with apical bulla suspected. Increased interstitial markings detected within the bilateral lung bases, unchanged from previous examination performed approximately 24 hours earlier. No pleural effusion is appreciated. IMPRESSION: No focal infiltrate or effusion. Stable volume loss within the left hemithorax with left apical scarring, unchanged. 04/05/2021: EXAMINATION: CTA chest PE protocol DATE: 04/05/2021 07:16 MATERIALS SUPERVISOR INDICATION: Shortness of breath. Elevated d-dimer. TECHNIQUE: Computed tomographic angiography (CTA) of the chest was performed with 100 mL Omnipaque-350 intravenous contrast. The dose-length product was 487.85 mGy-cm. Maximum intensity projection 3D-reconstructions of the aorta and other arteries were constructed by the technologist on a separate workstation. COMPARISON: CT dated 10/11/2016. FINDINGS: There is right upper lobe pulmonary embolism, age indeterminate. There is a large pericardial effusion. Small pleural effusions. There is atherosclerosis of the aorta. There is a hyperdense right renal lesion which has increased in size compared with prior study severe emphysema. There is scarring at the lung apices. There is fibrosis in the lower lungs with underlying atelectasis. There are scattered areas of consolidation. Cannot exclude acute pneumonia. There is linear appearance to scarring in the left thorax medially, possibly radiation therapy.. Recommend correlation with ultrasound. There are nodular densities in the right upper and lower lobe laterally on the largest measuring 11 mm. Cannot exclude malignancy. IMPRESSION: 1. Pulmonary embolism right upper and lower lobes pulmonary artery, age indeterminate. 2: Irregular pleural-based nodules right upper lobe. Cannot exclude malignancy. Consider correlation with pet/CT scan or percutaneous biopsy. 3: Moderate pericardial effusion. Small pleural effusions. 4: Emphysema. 5: Hyperdense right renal lesion, enlarged since prior examination. Recommend correlation with ultrasound. Review of Systems Review of Systems: All systems reviewed & are unremarkable except as noted in HPI and below Constitutional: Constitutional: Reports no additional constitutional complaints Eyes: Eyes: Reports no additional eye complaints ENT: Reports system reviewed and no additional complaints, except as documented Cardiovascular: Cardiovascular: Reports no additional cardiovascular complaints Respiratory: Respiratory: Reports no additional respiratory complaints Gastrointestinal: Gastrointestinal: Reports no additional gastrointestinal complaints Musculoskeletal: Musculoskeletal: Reports no additional musculoskeletal complaints Neurologic: Reports system reviewed and no additional complaints, except as documented Psychiatric: Psychiatric: Reports no additional psychiatric complaints Endocrine: Endocrine: Reports no additional endocrine complaints Hematologic/Lymphatic: Hematologic/Lymphatic: Reports no additional hematologic/lymphatic complaints Allergic/Immunologic: Allergic/Immunologic: Reports no additional allergic/immunologic complaints Exam Const: General: cooperative, healthy appearing and comfortable Orientation/consciousness: oriented to person, oriented to place and oriented to time HENMT: Head: normal to inspection Ears: hearing grossly normal bilaterally Eyes: General: appearance normal, both eyes and all related structures Neck: Neck: normal visual inspection Chest: Chest palpation & inspection: normal inspection of the chest Resp: Effort & Inspection: normal respiratory effort and able to speak in complete sentences Auscultation: crackles, no rales, no rhonchi, no wheezes and lung sounds not diminished Other: Few crackles at the bases. Cardio: Jugular venous distension: no JVD GI: Inspection: normal to inspection Skin: General skin exam: normal color Neuro: General: oriented to person, oriented to place and oriented to time Extrem: General: normal to inspection Psych: Appearance: grossly normal Objective Data Vital Signs Vital Signs: Vital Signs - 24 hr 07/28/24 12:00 07/28/24 14:00 07/28/24 15:12 Temperature Pulse Rate 75 72 Respiratory Rate Blood Pressure Pulse Oximetry 99 Oxygen Delivery Nasal Cannula Oxygen Flow Rate 1 07/28/24 15:51 07/28/24 16:00 07/28/24 16:00 Temperature Pulse Rate 62 67 63 Respiratory Rate 18 18 Blood Pressure Pulse Oximetry Oxygen Delivery Oxygen Flow Rate 07/28/24 16:02 07/28/24 18:00 07/28/24 20:00 Temperature 36.4 C L Pulse Rate 71 71 Respiratory Rate 20 Blood Pressure 183/74 H Pulse Oximetry 100 97 Oxygen Delivery Nasal Cannula Oxygen Flow Rate 1 07/28/24 20:00 07/28/24 20:01 07/28/24 20:25 Temperature 36.8 C Pulse Rate 68 68 66 Respiratory Rate 22 H Blood Pressure 130/89 Pulse Oximetry 95 Oxygen Delivery Oxygen Flow Rate 07/28/24 20:25 07/28/24 20:36 07/28/24 20:42 Temperature Pulse Rate 66 66 66 Respiratory Rate 16 16 Blood Pressure Pulse Oximetry 96 Oxygen Delivery High Flow Nasal Cannula Oxygen Flow Rate 1 07/28/24 23:45 07/29/24 00:00 07/29/24 00:00 Temperature 36.7 C Pulse Rate 64 60 Respiratory Rate 22 H Blood Pressure 126/57 L Pulse Oximetry 94 98 Oxygen Delivery Nasal Cannula Oxygen Flow Rate 1 07/29/24 00:14 07/29/24 00:20 07/29/24 02:00 Temperature Pulse Rate 62 64 59 L Respiratory Rate 16 16 Blood Pressure Pulse Oximetry Oxygen Delivery Oxygen Flow Rate 07/29/24 04:00 07/29/24 04:00 07/29/24 04:00 Temperature 36.8 C Pulse Rate 57 L 65 Respiratory Rate 20 Blood Pressure 130/60 Pulse Oximetry 97 96 Oxygen Delivery Nasal Cannula Oxygen Flow Rate 1 07/29/24 04:26 07/29/24 06:00 07/29/24 07:40 Temperature 36.6 C Pulse Rate 58 L 55 L 68 Respiratory Rate 16 22 H Blood Pressure 157/88 H Pulse Oximetry 95 Oxygen Delivery Oxygen Flow Rate 07/29/24 08:00 07/29/24 08:14 07/29/24 08:14 Temperature Pulse Rate 80 74 Respiratory Rate 16 Blood Pressure Pulse Oximetry 94 Oxygen Delivery Nasal Cannula Oxygen Flow Rate 1 07/29/24 08:29 07/29/24 09:21 07/29/24 10:00 Temperature Pulse Rate 78 78 Respiratory Rate Blood Pressure Pulse Oximetry Oxygen Delivery Nasal Cannula Oxygen Flow Rate 1 07/29/24 10:10 Temperature Pulse Rate Respiratory Rate Blood Pressure Pulse Oximetry Oxygen Delivery Nasal Cannula Oxygen Flow Rate 2 Intake/Output Intake/Output: Intake & Output 07/26/24 07/27/24 07/28/24 06/23/25 23:59 23:59 23:59 23:59 Intake Total 2410.6 1696.1 1845 640 Output Total 1300 850 825 500 Balance 1110.6 846.1 1020 140 Meds/Results Medications: Active Medications Generic Name Dose Route Start Last Admin Trade Name Freq PRN Reason Stop Dose Admin Acetaminophen 650 mg 07/24/24 15:42 Acetaminophen 325 Mg Tablet PO Q4H PRN Mild Pain (1-3) or Fever Hydrocodone Bitart/Acetaminophen 1 tab 07/24/24 15:42 Hydrocodone/Acetaminophen (*Crx) 5-325 Mg Tablet PO Q4H PRN Pain Rated 4-6 Apixaban 5 mg 07/25/24 09:00 07/29/24 08:30 Apixaban 5 Mg Tablet BY MOUTH 5 mg BID NATASHA Administration Dextrose 12.5 gm 07/25/24 04:38 07/25/24 04:57 Dextrose 50% 25 Gm/50 Ml Syringe IV PUSH 12.5 gm PRN PRN Administration Hypoglycemia Protocol Docusate Sodium 100 mg 07/25/24 09:00 07/29/24 08:30 Docusate Sodium 100 Mg Capsule PO 100 mg DAILY NATASHA Administration Dutasteride 0.5 mg 07/25/24 09:00 07/29/24 08:30 Dutasteride 0.5 Mg Capsule PO 0.5 mg DAILY NATASHA Administration Empagliflozin 25 mg 07/25/24 09:00 07/29/24 08:30 Empagliflozin 25 Mg Tablet BY MOUTH 25 mg DAILY NATASHA Administration Finasteride 5 mg 07/25/24 09:00 07/29/24 08:30 Finasteride 5 Mg Tablet PO 5 mg DAILY NATASHA Administration Flecainide Acetate 100 mg 07/27/24 21:00 07/29/24 08:29 Flecainide Acetate 100 Mg Tablet PO 100 mg Q12HR NATASHA Administration Gabapentin 100 mg 07/24/24 19:00 07/29/24 08:29 Gabapentin 100 Mg Capsule PO 100 mg BID NATASHA Administration Glucagon 1 mg 07/25/24 04:38 Glucagon For Inj 1 Mg Vial IM PRN PRN Hypoglycemia Protocol Glucose 15 gm 07/25/24 04:38 Glucose Oral Gel 15 Gm Of Glucse In 37.5 Gm Tube PO PRN PRN Hypoglycemia Protocol Guaifenesin 400 mg 07/27/24 09:13 Guaifenesin 200 Mg/10 Ml Udc PO Q8HR PRN Cough Heparin Sodium (Beef Lung) 50 units 07/26/24 09:00 07/28/24 08:23 Heparin Flush 50 Units/5 Ml Syringe IV PUSH 50 units QAM NATASHA Administration Heparin Sodium (Beef Lung) 50 units 07/25/24 18:45 07/28/24 22:24 Heparin Flush 50 Units/5 Ml Syringe IV PUSH 50 units PRN PRN Administration after intermittent infusion Heparin Sodium (Beef Lung) 50 units 07/25/24 18:45 07/29/24 05:43 Heparin Flush 50 Units/5 Ml Syringe IV PUSH 50 units PRN PRN Administration after blood draws Heparin Sodium (Porcine) 500 units 07/25/24 18:45 Heparin Sodium Lock Flush 500 Units/5 Ml Syringe IV PUSH PRN PRN see comments below Ceftriaxone Sodium 1 gm in 50 mls @ 100 mls/hr 07/25/24 18:00 07/28/24 17:06 Rocephin 1 Gm/Ns 50 Ml IVPB 07/30/24 18:29 100 mls/hr Q24H NATASHA Administration Dextrose 1,000 mls @ 100 mls/hr 07/25/24 04:38 Dextrose 5% 1,000 Ml IVPB PRN PRN Hypoglycemia Protocol Iron Sucrose 400 mg/ Iron 275 mls @ 78.571 mls/hr 07/29/24 09:00 07/29/24 08:31 Sucrose 100 mg/ Sodium IVPB 07/29/24 12:29 78.57 mls/hr Chloride ONCE ONE Administration Ipratropium [place] 0.5 mg 07/26/24 12:00 07/29/24 08:14 Ipratropium Br 0.02% Inh Soln 0.5 Mg/2.5 Ml Vial INHALATION 0.5 mg Q4HRT NATASHA Administration Levofloxacin 750 mg 07/30/24 14:00 Levofloxacin 750 Mg Tablet PO 08/01/24 14:01 Q48H [facility] Levothyroxine Sodium 44 mcg 07/25/24 06:30 07/29/24 05:33 Levothyroxine Sodium 44 Mcg Tablet PO 44 mcg DAILY@0630 [facility] Administration Metoprolol Succinate 12.5 mg 07/26/24 21:15 07/28/24 20:25 Metoprolol Succinate Ext Rel 12.5 Mg Tabcr PO 12.5 mg QHS [facility] Administration Pravastatin Sodium 40 mg 07/25/24 09:00 07/29/24 08:34 Pravastatin Sodium 20 Mg Tablet BY MOUTH 40 mg DAILY NATASHA Administration Prednisone 40 mg 07/25/24 08:00 07/29/24 08:30 Prednisone 20 Mg Tablet PO 07/30/24 07:59 40 mg DAILY@0800 [facility] [facility] Administration Promethazine HCl 12.5 mg 07/24/24 15:42 Promethazine Hcl 25 Mg/Ml Ampul IV PUSH Q6H PRN Nausea Sodium Chloride 10 ml 07/25/24 22:00 07/29/24 05:43 Central Line Flush IV PUSH 10 ml Q8HR [facility] Administration Spironolactone 25 mg 07/29/24 21:00 Spironolactone 25 Mg Tablet PO Q48H NATASHA Tamsulosin HCl 0.4 mg 07/30/24 21:00 Tamsulosin Hcl 0.4 Mg Capsule PO [facility] Radiology Results: ITS Impressions Chest X-Ray 07/25/24 23:14 IMPRESSION: No focal infiltrate or effusion. Stable volume loss within the left hemithorax with left apical scarring, unchanged. Chest CT 07/27/24 10:22 IMPRESSION: 1. Severe emphysema with several new pulmonary nodules in the right upper and lower lobes measuring up to 1 cm which are most likely infectious/inflammatory in etiology but would recommend 3 month follow-up low-dose noncontrast chest CT for further evaluation. 2. 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 3. Small right pleural effusion. Labs Labs: Laboratory Results - last 24 hr 07/29/24 07/29/24 05:37 05:41 WBC 13.4 H RBC 5.36 Hgb 10.1 L Hct 35.6 L MCV 66.4 L MCH 18.8 L MCHC 28.4 L RDW 18.9 H Plt Count 332 MPV 10.1 Immature Gran % (Auto) 0.8 H Neut % (Auto) 84.2 H Lymph % (Auto) 6.1 L [place] % (Auto) 8.8 H Eos % (Auto) 0.0 Baso % (Auto) 0.1 L Lymph # (Auto) 0.82 L [place] # (Auto) 1.2 H Eos # (Auto) 0.0 Baso # (Auto) 0.0 Abs Immat Gran (auto) 0.11 H Absolute Neuts (auto) 11.3 H Absolute Nucleated RBC 0.000 Band Neutrophils % Not Reportable Nucleated RBC % 0.0 Platelet Estimate Adequate % Immature Plt Fraction 4.0 Hypochromasia 2+ Anisocytosis 1+ Ovalocytes 1+ [place] Cells 1+ Schistocytes None seen Sodium 135 L Potassium 4.7 Chloride 106 Carbon Dioxide 25 Anion Gap 4 BUN 33 H Creatinine 1.17 Estim Creat Clear Calc 40 Estimated GFR 59 Glucose 83 Calcium 8.6 Magnesium 2.1 Total Bilirubin 0.2 AST 24 ALT 27 Alkaline Phosphatase 32 L NT-Pro-B Natriuret Pep 1590 H Total Protein 5.5 L Albumin 2.8 L Procalcitonin 0.3
--- NOTE | 2024-07-29 12:59 | P.PNIM_ITS ---
Progress Note: A&P Assessment and Plan (1) COPD exacerbation: Code(s): J44.1 - Chronic obstructive pulmonary disease with (acute) exacerbation Status: Acute Assessment and Plan: Continue one day rocephin transition to oral levaquin DuoNeb q.6 dc steroids Guaifenesin incentive spirometer Chest x-ray with chronic interstitial change with left-sided volume loss unchanged from prior without focal infiltrate or effusion. ct reviewed earlier on admission showed pneumonia pulmonology happy with progress hopeful dc in 1-2 days time (2) Atrial fibrillation with RVR: Code(s): I48.91 - Unspecified atrial fibrillation Status: Acute Assessment and Plan: Cardio consult noted. S/p Amiodarone on Metoprolol and Eliquis on oral digoxin (3) Heart failure with preserved ejection fraction: Qualifiers: Heart failure chronicity: unspecified Qualified Code(s): I50.30 - Unspecified diastolic (congestive) heart failure Code(s): I50.30 - Unspecified diastolic (congestive) heart failure Status: Acute Assessment and Plan: GLP per cards and Spironolactone (4) Hyperlipidemia: Qualifiers: Hyperlipidemia type: mixed hyperlipidemia Qualified Code(s): E78.2 - Mixed hyperlipidemia Code(s): E78.5 - Hyperlipidemia, unspecified Status: Acute Assessment and Plan: continue statin (5) Hypothyroidism (acquired): Code(s): E03.9 - Hypothyroidism, unspecified Status: Acute Assessment and Plan: continue synthroid (6) BPH (benign prostatic hyperplasia): Qualifiers: Lower urinary tract symptom presence: symptoms present Lower urinary tract symptom detail: unspecified Qualified Code(s): N40.1 - Benign prostatic hyperplasia with lower urinary tract symptoms Code(s): N40.0 - Benign prostatic hyperplasia without lower urinary tract symptoms Status: Acute Assessment and Plan: Continue home meds Plan Hypoxic respiratory failure resolved Likely from Pneumonia and COPD continue Rocephin, Doxycycline pt transitioning off iv abx on [address] chest shows Pneumonia AF Elevated troponin likely secondary to AF Continue digoxin metoprolol and Eliquis Cardiology on board Anemia: Recent EGD and colonoscopy negative Iron deficiency sp venofer x3 days watch hb Hypoglycemia: encouraged to eat more Subjective Date/time seen: 07/29/24 12:59 Interval history: pt admitted for copd excerbation, af, history of chf, hld, hypothyoidism and bph pt doing much better greatly improved Review of Systems Review of Systems: mild wheezes in lungs no cough or fever Exam Narrative: General: much improved HEENT: normocephalic, atraumatic. Mucous membranes moist. Respiratory: Diminished lung sounds bilaterally wheezy lungs Cardiovascular: Regular rate and rhythm, normal S1-S2 upon ascultation. sinus rhythm Abdomen: Soft, round, no pulsatile masses, nondistended and nontender. No rebound, no guarding. Extremities: No cyanosis, clubbing, or edema present. Pulses are palpable 2/2. Active ROM to all four extremities. Neuro: Alert and orientated x 4. PERRLA. Cranial nerves 2-12 intact without focal deficit. Skin: Warm, dry, and intact, without rash, erythema, or lesion. Psych: pleasant, cooperative, normal speech, normal affect, no hallucinations, no dysarthia Objective Data Vital Signs Vital Signs: Vital Signs - 24 hr 07/28/24 14:00 07/28/24 15:12 07/28/24 15:51 Temperature Pulse Rate 72 62 Respiratory Rate 18 Blood Pressure Pulse Oximetry 99 Oxygen Delivery Nasal Cannula Oxygen Flow Rate 1 07/28/24 16:00 07/28/24 16:00 07/28/24 16:02 Temperature 36.4 C L Pulse Rate 67 63 71 Respiratory Rate 18 20 Blood Pressure 183/74 H Pulse Oximetry 100 Oxygen Delivery Oxygen Flow Rate 07/28/24 18:00 07/28/24 20:00 07/28/24 20:00 Temperature Pulse Rate 71 68 Respiratory Rate Blood Pressure Pulse Oximetry 97 Oxygen Delivery Nasal Cannula Oxygen Flow Rate 1 07/28/24 20:01 07/28/24 20:25 07/28/24 20:25 Temperature 36.8 C Pulse Rate 68 66 66 Respiratory Rate 22 H Blood Pressure 130/89 Pulse Oximetry 95 Oxygen Delivery Oxygen Flow Rate 07/28/24 20:36 07/28/24 20:42 07/28/24 23:45 Temperature 36.7 C Pulse Rate 66 66 64 Respiratory Rate 16 16 22 H Blood Pressure 126/57 L Pulse Oximetry 96 94 Oxygen Delivery High Flow Nasal Cannula Oxygen Flow Rate 1 07/29/24 00:00 07/29/24 00:00 07/29/24 00:14 Temperature Pulse Rate 60 62 Respiratory Rate 16 Blood Pressure Pulse Oximetry 98 Oxygen Delivery Nasal Cannula Oxygen Flow Rate 1 07/29/24 00:20 07/29/24 02:00 07/29/24 04:00 Temperature Pulse Rate 64 59 L Respiratory Rate 16 Blood Pressure Pulse Oximetry 97 Oxygen Delivery Nasal Cannula Oxygen Flow Rate 1 07/29/24 04:00 07/29/24 04:00 07/29/24 04:26 Temperature 36.8 C Pulse Rate 57 L 65 58 L Respiratory Rate 20 16 Blood Pressure 130/60 Pulse Oximetry 96 Oxygen Delivery Oxygen Flow Rate 07/29/24 06:00 07/29/24 07:40 07/29/24 08:00 Temperature 36.6 C Pulse Rate 55 L 68 80 Respiratory Rate 22 H Blood Pressure 157/88 H Pulse Oximetry 95 Oxygen Delivery Oxygen Flow Rate 07/29/24 08:00 07/29/24 08:14 07/29/24 08:14 Temperature Pulse Rate 74 Respiratory Rate 16 Blood Pressure Pulse Oximetry 98 94 Oxygen Delivery Nasal Cannula Nasal Cannula Oxygen Flow Rate 1 1 07/29/24 08:29 07/29/24 09:21 07/29/24 10:00 Temperature Pulse Rate 78 78 Respiratory Rate Blood Pressure Pulse Oximetry Oxygen Delivery Nasal Cannula Oxygen Flow Rate 1 07/29/24 10:10 Temperature Pulse Rate Respiratory Rate Blood Pressure Pulse Oximetry Oxygen Delivery Nasal Cannula Oxygen Flow Rate 2 Intake/Output Intake/Output: Intake & Output 07/26/24 07/27/24 07/28/24 07/29/24 23:59 23:59 23:59 23:59 Intake Total 2410.6 1696.1 1845 760 Output Total 1300 850 825 500 Balance 1110.6 846.1 1020 260 Meds/Results Medications: Active Medications Generic Name Dose Route Start Last Admin Trade Name Freq PRN Reason Stop Dose Admin Acetaminophen 650 mg 07/24/24 15:42 Acetaminophen 325 Mg Tablet PO Q4H PRN Mild Pain (1-3) or Fever Hydrocodone Bitart/Acetaminophen 1 tab 07/24/24 15:42 Hydrocodone/Acetaminophen (*Crx) 5-325 Mg Tablet PO Q4H PRN Pain Rated 4-6 Apixaban 5 mg 07/25/24 09:00 07/29/24 08:30 Apixaban 5 Mg Tablet BY MOUTH 5 mg BID NATASHA Administration Dextrose 12.5 gm 07/25/24 04:38 07/25/24 04:57 Dextrose 50% 25 Gm/50 Ml Syringe IV PUSH 12.5 gm PRN PRN Administration Hypoglycemia Protocol Docusate Sodium 100 mg 07/25/24 09:00 07/29/24 08:30 Docusate Sodium 100 Mg Capsule PO 100 mg DAILY NATASHA Administration Dutasteride 0.5 mg 07/25/24 09:00 07/29/24 08:30 Dutasteride 0.5 Mg Capsule PO 0.5 mg DAILY NATASHA Administration Empagliflozin 25 mg 07/25/24 09:00 07/29/24 08:30 Empagliflozin 25 Mg Tablet BY MOUTH 25 mg DAILY NATASHA Administration Finasteride 5 mg 07/25/24 09:00 07/29/24 08:30 Finasteride 5 Mg Tablet PO 5 mg DAILY NATASHA Administration Flecainide Acetate 100 mg 07/27/24 21:00 07/29/24 08:29 Flecainide Acetate 100 Mg Tablet PO 100 mg Q12HR NATASHA Administration Fluticasone/Umeclidinium/Vilanterol 1 puff 07/29/24 12:10 Fluticasone/Umeclidin/Vilanter 100-62.5-25 Mcg Ellipta INHALATION DAILYRT NATASHA Gabapentin 100 mg 07/24/24 19:00 07/29/24 08:29 Gabapentin 100 Mg Capsule PO 100 mg BID NATASHA Administration Glucagon 1 mg 07/25/24 04:38 Glucagon For Inj 1 Mg Vial IM PRN PRN Hypoglycemia Protocol Glucose 15 gm 07/25/24 04:38 Glucose Oral Gel 15 Gm Of Glucse In 37.5 Gm Tube PO PRN PRN Hypoglycemia Protocol Guaifenesin 400 mg 07/27/24 09:13 Guaifenesin 200 Mg/10 Ml Udc PO Q8HR PRN Cough Heparin Sodium (Beef Lung) 50 units 07/26/24 09:00 07/28/24 08:23 Heparin Flush 50 Units/5 Ml Syringe IV PUSH 50 units QAM NATASHA Administration Heparin Sodium (Beef Lung) 50 units 07/25/24 18:45 07/28/24 22:24 Heparin Flush 50 Units/5 Ml Syringe IV PUSH 50 units PRN PRN Administration after intermittent infusion Heparin Sodium (Beef Lung) 50 units 07/25/24 18:45 07/29/24 05:43 Heparin Flush 50 Units/5 Ml Syringe IV PUSH 50 units PRN PRN Administration after blood draws Heparin Sodium (Porcine) 500 units 07/25/24 18:45 Heparin Sodium Lock Flush 500 Units/5 Ml Syringe IV PUSH PRN PRN see comments below Ceftriaxone Sodium 1 gm in 50 mls @ 100 mls/hr 07/25/24 18:00 07/28/24 17:06 Rocephin 1 Gm/Ns 50 Ml IVPB 07/30/24 18:29 100 mls/hr Q24H NATASHA Administration Dextrose 1,000 mls @ 100 mls/hr 07/25/24 04:38 Dextrose 5% 1,000 Ml IVPB PRN PRN Hypoglycemia Protocol Levofloxacin 750 mg 07/30/24 14:00 Levofloxacin 750 Mg Tablet PO 08/01/24 14:01 Q48H [facility] Levothyroxine Sodium 44 mcg 07/25/24 06:30 07/29/24 05:33 Levothyroxine Sodium 44 Mcg Tablet PO 44 mcg DAILY@0630 [facility] Administration Metoprolol Succinate 12.5 mg 07/26/24 21:15 07/28/24 20:25 Metoprolol Succinate Ext Rel 12.5 Mg Tabcr PO 12.5 mg QHS [facility] Administration Pravastatin Sodium 40 mg 07/25/24 09:00 07/29/24 08:34 Pravastatin Sodium 20 Mg Tablet BY MOUTH 40 mg DAILY [facility] Administration Promethazine HCl 12.5 mg 07/24/24 15:42 Promethazine Hcl 25 Mg/Ml Ampul IV PUSH Q6H PRN Nausea Sodium Chloride 10 ml 07/25/24 22:00 07/29/24 05:43 Central Line Flush IV PUSH 10 ml Q8HR [facility] Administration Spironolactone 25 mg 07/29/24 21:00 Spironolactone 25 Mg Tablet PO Q48H [facility] Tamsulosin HCl 0.4 mg 07/30/24 21:00 Tamsulosin Hcl 0.4 Mg Capsule PO [facility] Radiology Results: ITS Impressions Chest X-Ray 07/25/24 23:14 IMPRESSION: No focal infiltrate or effusion. Stable volume loss within the left hemithorax with left apical scarring, unchanged. Chest CT 07/27/24 10:22 IMPRESSION: 1. Severe emphysema with several new pulmonary nodules in the right upper and lower lobes measuring up to 1 cm which are most likely infectious/inflammatory i n etiology but would recommend 3 month follow-up low-dose noncontrast chest CT for further evaluation. 2. 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 3. Small right pleural effusion. Labs Labs: Laboratory Results - last 24 hr 07/29/24 07/29/24 05:37 05:41 WBC 13.4 H RBC 5.36 Hgb 10.1 L Hct 35.6 L MCV 66.4 L MCH 18.8 L MCHC 28.4 L RDW 18.9 H Plt Count 332 MPV 10.1 Immature Gran % (Auto) 0.8 H Neut % (Auto) 84.2 H Lymph % (Auto) 6.1 L [place] % (Auto) 8.8 H Eos % (Auto) 0.0 Baso % (Auto) 0.1 L Lymph # (Auto) 0.82 L [place] # (Auto) 1.2 H Eos # (Auto) 0.0 Baso # (Auto) 0.0 Abs Immat Gran (auto) 0.11 H Absolute Neuts (auto) 11.3 H Absolute Nucleated RBC 0.000 Band Neutrophils % Not Reportable Nucleated RBC % 0.0 Platelet Estimate Adequate % Immature Plt Fraction 4.0 Hypochromasia 2+ Anisocytosis 1+ Ovalocytes 1+ [place] Cells 1+ Schistocytes None seen Sodium 135 L Potassium 4.7 Chloride 106 Carbon Dioxide 25 Anion Gap 4 BUN 33 H Creatinine 1.17 Estim Creat Clear Calc 40 Estimated GFR 59 Glucose 83 Calcium 8.6 Magnesium 2.1 Total Bilirubin 0.2 AST 24 ALT 27 Alkaline Phosphatase 32 L NT-Pro-B Natriuret Pep 1590 H Total Protein 5.5 L Albumin 2.8 L Procalcitonin 0.3
[2024-07-29 14:36] LABS: Hematocrit 39.2 % (42.0-52.0); Hemoglobin 11.1 g/dL (14.0-18.0); Immature Platelet Fraction Pct 4.4 % (0.9-11.2); Mean Corpuscular HGB Conc 28.3 g/dl (32-36); Mean Corpuscular Hemoglobin 18.9 pg (26-34); Mean Corpuscular Volume 66.9 fl (80-100); Platelet Count Result 360 k/mm3 (150-375); Red Blood Count 5.86 M/mm3 (4.6-6.20); White Blood Count 20.2 K/mm3 (4.5-10.0)
[2024-07-29 14:49] LABS: Anion Gap 5 mmol/L (4-12); Blood Urea Nitrogen 35 mg/dL (9-20); Calcium 8.9 mg/dL (8.4-10.2); Carbon Dioxide 25 mmol/L (22-30); Chloride 105 mmol/L (98-107); Estimated CRCL calculation 38 ml/min; Estimated Glomerular Filt Rate 55; Glucose 116 mg/dL (65-110); Potassium 4.7 mmol/L (3.4-5.0); Sodium 135 mmol/L (137-145)
--- NOTE | 2024-07-29 17:30 | PC.NURSE ---
Received from [facility] via bed.
--- NOTE | 2024-07-29 17:34 | PC.NURSE ---
Pt moved to room 253 at 1730. Report given to MUSA Pak.
[2024-07-29] MEDS: METOPROLOL SUCCINATE EXT REL 12.5 MG TABCR PO (21:51)
[2024-07-29] MEDS: SPIRONOLACTONE 25 MG TABLET PO (21:51)
[2024-07-30] VITALS (12 sets, daily range): BP systolic 118–142; BP diastolic 57–64; PULSE 53–74; RESP 16–18; TEMP 36.2–37.3; O2SAT 94–100
[2024-07-30] MEDS: LEVOTHYROXINE SODIUM PO (05:47)
[2024-07-30] MEDS: CENTRAL LINE FLUSH 10 ML IV PUSH ×3 (05:48→21:06)
[2024-07-30] MEDS: PRAVASTATIN SODIUM 20 MG TABLET 40 MG BY MOUTH (08:30)
[2024-07-30] MEDS: FINASTERIDE 5 MG TABLET PO (08:31)
[2024-07-30] MEDS: DOCUSATE SODIUM 100 MG CAPSULE PO (08:31)
[2024-07-30] MEDS: APIXABAN 5 MG TABLET BY MOUTH ×2 (08:31→17:08)
[2024-07-30] MEDS: DUTASTERIDE 0.5 MG CAPSULE PO (08:31)
[2024-07-30] MEDS: FLECAINIDE ACETATE 100 MG TABLET PO ×2 (08:31→21:04)
[2024-07-30] MEDS: GABAPENTIN 100 MG CAPSULE PO ×2 (08:31→17:08)
[2024-07-30] MEDS: EMPAGLIFLOZIN 25 MG TABLET BY MOUTH (08:32)
[2024-07-30] MEDS: FLUTICASONE/UMECLIDIN/VILANTER 100-62.5-25 MCG ELLIPTA 1 PUFF INHALATION (09:21)
--- NOTE | 2024-07-30 15:14 | P.PNIM_ITS ---
Progress Note: A&P Assessment and Plan (1) COPD exacerbation: Code(s): J44.1 - Chronic obstructive pulmonary disease with (acute) exacerbation Status: Acute Assessment and Plan: S/p rocpehin now on Levaquin end date 08/01 DuoNeb q.6 dc steroids Guaifenesin incentive spirometer Chest x-ray with chronic interstitial change with left-sided volume loss unchanged from prior without focal infiltrate or effusion. ct reviewed earlier on admission showed pneumonia pulmonology happy with progress hopeful dc in 1-2 days time (2) Atrial fibrillation with RVR: Code(s): I48.91 - Unspecified atrial fibrillation Status: Acute Assessment and Plan: Cardio consult noted. S/p Amiodarone on Metoprolol and Eliquis on oral digoxin (3) Heart failure with preserved ejection fraction: Qualifiers: Heart failure chronicity: unspecified Qualified Code(s): I50.30 - Unspecified diastolic (congestive) heart failure Code(s): I50.30 - Unspecified diastolic (congestive) heart failure Status: Acute Assessment and Plan: GLP per cards and Spironolactone (4) Hyperlipidemia: Qualifiers: Hyperlipidemia type: mixed hyperlipidemia Qualified Code(s): E78.2 - Mixed hyperlipidemia Code(s): E78.5 - Hyperlipidemia, unspecified Status: Acute Assessment and Plan: continue statin (5) Hypothyroidism (acquired): Code(s): E03.9 - Hypothyroidism, unspecified Status: Acute Assessment and Plan: continue synthroid (6) BPH (benign prostatic hyperplasia): Qualifiers: Lower urinary tract symptom presence: symptoms present Lower urinary tract symptom detail: unspecified Qualified Code(s): N40.1 - Benign prostatic hyperplasia with lower urinary tract symptoms Code(s): N40.0 - Benign prostatic hyperplasia without lower urinary tract symptoms Status: Acute Assessment and Plan: Continue home meds Plan Hypoxic respiratory failure resolved Likely from Pneumonia and COPD s/p Rocephin, Doxycycline pt transitioning off iv abx on [address] chest shows Pneumonia Cotnineu levaquin as above AF Elevated troponin likely secondary to AF Continue digoxin metoprolol and Eliquis Cardiology on board Anemia: Recent EGD and colonoscopy negative Iron deficiency sp venofer x3 days Hb 11.1 Hypoglycemia: encouraged to eat more DVT prophylaxis on Eliquis Awaiting placement Subjective Date/time seen: 07/30/24 15:14 Interval history: Comfortable at bedside Review of Systems Review of Systems: mild wheezes in lungs no cough or fever Exam Narrative: General: alert and oriented x3 HEENT: normocephalic, atraumatic. Mucous membranes moist. Respiratory: clear to auscultation Cardiovascular: Regular rate and rhythm, normal S1-S2 upon ascultation. sinus rhythm Abdomen: Soft, round, no pulsatile masses, nondistended and nontender. No rebound, no guarding. Extremities: No cyanosis, clubbing, or edema present. Pulses are palpable 2/2. Active ROM to all four extremities. Neuro: Alert and orientated x 4. PERRLA. Cranial nerves 2-12 intact without focal deficit. Skin: Warm, dry, and intact, without rash, erythema, or lesion. Psych: pleasant, cooperative,normal affect Objective Data Vital Signs Vital Signs: Vital Signs - 24 hr 07/29/24 15:36 07/29/24 16:00 07/29/24 17:30 Temperature 97.7 F 97.6 F Pulse Rate 64 65 63 Respiratory Rate 16 17 Blood Pressure 142/68 H 148/69 H Pulse Oximetry 96 93 Oxygen Delivery Oxygen Flow Rate Fraction of Inspired Oxygen 07/29/24 17:40 07/29/24 20:00 07/29/24 20:00 Temperature Pulse Rate 66 71 Respiratory Rate 18 18 Blood Pressure Pulse Oximetry 93 93 Oxygen Delivery Nasal Cannula Nasal Cannula Oxygen Flow Rate 1 1 Fraction of Inspired Oxygen 24 07/29/24 21:50 07/29/24 21:51 07/30/24 00:00 Temperature Pulse Rate 66 66 57 L Respiratory Rate Blood Pressure Pulse Oximetry Oxygen Delivery Oxygen Flow Rate Fraction of Inspired Oxygen 07/30/24 04:00 07/30/24 06:00 07/30/24 08:02 Temperature 97.2 F L Pulse Rate 53 L 60 56 L Respiratory Rate 18 Blood Pressure 138/57 L Pulse Oximetry 99 Oxygen Delivery Oxygen Flow Rate Fraction of Inspired Oxygen 07/30/24 08:31 07/30/24 08:32 07/30/24 14:00 Temperature 99.1 F Pulse Rate 62 71 Respiratory Rate 18 16 Blood Pressure 118/61 Pulse Oximetry 99 99 Oxygen Delivery Nasal Cannula Oxygen Flow Rate 1 Fraction of Inspired Oxygen Intake/Output Intake/Output: Intake & Output 07/27/24 07/28/24 07/29/24 07/30/24 23:59 23:59 23:59 23:59 Intake Total 1696.1 1895 1290 390 Output Total 392 524 3691 1300 Balance 846.1 0805 -754 -238 Meds/Results Medications: Active Medications Generic Name Dose Route Start Last Admin Trade Name Freq PRN Reason Stop Dose Admin Acetaminophen 650 mg 07/24/24 15:42 Acetaminophen 325 Mg Tablet PO Q4H PRN Mild Pain (1-3) or Fever Hydrocodone Bitart/Acetaminophen 1 tab 07/24/24 15:42 Hydrocodone/Acetaminophen (*Crx) 5-325 Mg Tablet PO Q4H PRN Pain Rated 4-6 Apixaban 5 mg 07/25/24 09:00 07/30/24 08:31 Apixaban 5 Mg Tablet BY MOUTH 5 mg BID NATASHA Administration Dextrose 12.5 gm 07/25/24 04:38 07/25/24 04:57 Dextrose 50% 25 Gm/50 Ml Syringe IV PUSH 12.5 gm PRN PRN Administration Hypoglycemia Protocol Docusate Sodium 100 mg 07/25/24 09:00 07/30/24 08:31 Docusate Sodium 100 Mg Capsule PO 100 mg DAILY NATASHA Administration Dutasteride 0.5 mg 07/25/24 09:00 07/30/24 08:31 Dutasteride 0.5 Mg Capsule PO 0.5 mg DAILY NATASHA Administration Empagliflozin 25 mg 07/25/24 09:00 07/30/24 08:32 Empagliflozin 25 Mg Tablet BY MOUTH 25 mg DAILY NATASHA Administration Finasteride 5 mg 07/25/24 09:00 07/30/24 08:31 Finasteride 5 Mg Tablet PO 5 mg DAILY NATASHA Administration Flecainide Acetate 100 mg 07/27/24 21:00 07/30/24 08:31 Flecainide Acetate 100 Mg Tablet PO 100 mg Q12HR NATASHA Administration Fluticasone/Umeclidinium/Vilanterol 1 puff 07/29/24 12:10 07/30/24 09:21 Fluticasone/Umeclidin/Vilanter 100-62.5-25 Mcg Ellipta INHALATION 1 puff DAILYRT NATASHA Administration Gabapentin 100 mg 07/24/24 19:00 07/30/24 08:31 Gabapentin 100 Mg Capsule PO 100 mg BID NATASHA Administration Glucagon 1 mg 07/25/24 04:38 Glucagon For Inj 1 Mg Vial IM PRN PRN Hypoglycemia Protocol Glucose 15 gm 07/25/24 04:38 Glucose Oral Gel 15 Gm Of Glucse In 37.5 Gm Tube PO PRN PRN Hypoglycemia Protocol Guaifenesin 400 mg 07/27/24 09:13 Guaifenesin 200 Mg/10 Ml Udc PO Q8HR PRN Cough Heparin Sodium (Beef Lung) 50 units 07/26/24 09:00 07/30/24 08:30 Heparin Flush 50 Units/5 Ml Syringe IV PUSH 50 units QAM NATASHA Administration Heparin Sodium (Beef Lung) 50 units 07/25/24 18:45 07/28/24 22:24 Heparin Flush 50 Units/5 Ml Syringe IV PUSH 50 units PRN PRN Administration after intermittent infusion Heparin Sodium (Beef Lung) 50 units 07/25/24 18:45 07/29/24 14:16 Heparin Flush 50 Units/5 Ml Syringe IV PUSH 50 units PRN PRN Administration after blood draws Heparin Sodium (Porcine) 500 units 07/25/24 18:45 Heparin Sodium Lock Flush 500 Units/5 Ml Syringe IV PUSH PRN PRN see comments below Ceftriaxone Sodium 1 gm in 50 mls @ 100 mls/hr 07/25/24 18:00 07/30/24 13:43 Rocephin 1 Gm/Ns 50 Ml IVPB 07/30/24 18:29 Infused Q24H NATASHA Infusion Dextrose 1,000 mls @ 100 mls/hr 07/25/24 04:38 Dextrose 5% 1,000 Ml IVPB PRN PRN Hypoglycemia Protocol Levofloxacin 750 mg 07/30/24 14:00 07/30/24 13:13 Levofloxacin 750 Mg Tablet PO 08/01/24 14:01 750 mg Q48H NATASHA Administration Levothyroxine Sodium 44 mcg 07/25/24 06:30 07/30/24 05:47 Levothyroxine Sodium 44 Mcg Tablet PO 44 mcg DAILY@0630 NATASHA Administration Metoprolol Succinate 12.5 mg 07/26/24 21:15 07/29/24 21:51 Metoprolol Succinate Ext Rel 12.5 Mg Tabcr PO 12.5 mg QHS [facility] Administration Pravastatin Sodium 40 mg 07/25/24 09:00 07/30/24 08:30 Pravastatin Sodium 20 Mg Tablet BY MOUTH 40 mg DAILY [facility] Administration Promethazine HCl 12.5 mg 07/24/24 15:42 Promethazine Hcl 25 Mg/Ml Ampul IV PUSH Q6H PRN Nausea Sodium Chloride 10 ml 07/25/24 22:00 07/30/24 13:14 Central Line Flush IV PUSH 10 ml Q8HR [facility] Administration Spironolactone 25 mg 07/29/24 21:00 07/29/24 21:51 Spironolactone 25 Mg Tablet PO 25 mg Q48H [facility] Administration Tamsulosin HCl 0.4 mg 07/30/24 21:00 Tamsulosin Hcl 0.4 Mg Capsule PO HS [facility] Radiology Results: ITS Impressions Chest X-Ray 07/25/24 23:14 IMPRESSION: No focal infiltrate or effusion. Stable volume loss within the left hemithorax with left apical scarring, unchanged. Chest CT 07/27/24 10:22 IMPRESSION: 1. Severe emphysema with several new pulmonary nodules in the right upper and lower lobes measuring up to 1 cm which are most likely infectious/inflammatory in etiology but would recommend 3 month follow-up low-dose noncontrast chest CT for further evaluation. 2. 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 3. Small right pleural effusion. Quality VTE Prophylaxis VTE prophylaxis: mechanical ordered and pharmacologic ordered
[2024-07-30 18:28] LABS: Mycoplasma IgM Antibody Titer. 701 U/mL
[2024-07-30] MEDS: TAMSULOSIN HCL 0.4 MG CAPSULE PO (21:04)
[2024-07-30] MEDS: METOPROLOL SUCCINATE EXT REL 12.5 MG TABCR PO (21:05)
[2024-07-31] VITALS (13 sets, daily range): BP systolic 103–116; BP diastolic 44–55; PULSE 57–79; RESP 14–20; TEMP 36.4–37; O2SAT 94–100
[2024-07-31] MEDS: LEVOTHYROXINE SODIUM PO (05:56)
[2024-07-31] MEDS: CENTRAL LINE FLUSH 10 ML IV PUSH ×3 (05:56→20:55)
[2024-07-31 06:13] LABS: Hematocrit 35.4 % (42.0-52.0); Hemoglobin 9.9 g/dL (14.0-18.0); Immature Granulocyte Percent A 0.7 % (0-0.5); Immature Platelet Fraction Pct 3.9 % (0.9-11.2); Lymphocytes Absolute Auto 0.75 K/mm3 (0.9-3.2); Mean Corpuscular HGB Conc 28.0 g/dl (32-36); Mean Corpuscular Hemoglobin 18.5 pg (26-34); Mean Corpuscular Volume 66.2 fl (80-100); Nucleated Red Blood Cells Absolute Auto 0.000 K/mm3 (0.0-0.012); Nucleated Red Blood Cells Perc 0.0 % (0.0-0.2); Platelet Count Result 319 k/mm3 (150-375); Red Blood Count 5.35 M/mm3 (4.6-6.20); White Blood Count 12.8 K/mm3 (4.5-10.0)
[2024-07-31 06:34] LABS: Alanine Aminotransferase 23 U/L (6-50); Albumin Level 2.6 g/dL (3.5-5.1); Alkaline Phosphatase 32 U/L (38-126); Anion Gap 2 mmol/L (4-12); Aspartate Amino Transferase 20 U/L (17-59); Bilirubin,Total 0.2 mg/dL (0.2-1.3); Blood Urea Nitrogen 35 mg/dL (9-20); Calcium 8.9 mg/dL (8.4-10.2); Carbon Dioxide 29 mmol/L (22-30); Chloride 105 mmol/L (98-107); Estimated CRCL calculation 36 ml/min; Estimated Glomerular Filt Rate 51; Glucose 71 mg/dL (65-110); Magnesium 2.0 mg/dL (1.6-2.3); Potassium 4.5 mmol/L (3.4-5.0); Sodium 136 mmol/L (137-145); Total Protein 5.2 g/dL (6.3-8.2)
[2024-07-31 06:35] LABS: Anisocytosis 1+; Burr Cells 1+; Hypochromasia 2+; Ovalocytes 1+; Schistocytes None Seen; Target Cells 1+
[2024-07-31] MEDS: FLUTICASONE/UMECLIDIN/VILANTER 100-62.5-25 MCG ELLIPTA 1 PUFF INHALATION (07:27)
[2024-07-31] MEDS: FINASTERIDE 5 MG TABLET PO (08:51)
[2024-07-31] MEDS: PRAVASTATIN SODIUM 20 MG TABLET 40 MG BY MOUTH (08:51)
[2024-07-31] MEDS: DOCUSATE SODIUM 100 MG CAPSULE PO (08:51)
[2024-07-31] MEDS: GABAPENTIN 100 MG CAPSULE PO ×2 (08:51→17:05)
[2024-07-31] MEDS: DUTASTERIDE 0.5 MG CAPSULE PO (08:51)
[2024-07-31] MEDS: EMPAGLIFLOZIN 25 MG TABLET BY MOUTH (08:51)
[2024-07-31] MEDS: FLECAINIDE ACETATE 100 MG TABLET PO ×2 (08:51→20:54)
[2024-07-31] MEDS: APIXABAN 5 MG TABLET BY MOUTH ×2 (08:51→17:05)
--- NOTE | 2024-07-31 12:52 | P.PNIM_ITS ---
Progress Note: A&P Assessment and Plan (1) COPD exacerbation: Code(s): J44.1 - Chronic obstructive pulmonary disease with (acute) exacerbation Status: Acute Assessment and Plan: S/p Rocephin Now on Levaquin end date 08/01 DuoNeb q.6 dc steroids Guaifenesin Incentive spirometer Chest x-ray with chronic interstitial change with left-sided volume loss unchanged from prior without focal infiltrate or effusion. ct reviewed earlier on admission showed pneumonia pulmonology happy with progress hopeful dc in 1-2 days time (2) Atrial fibrillation with RVR: Code(s): I48.91 - Unspecified atrial fibrillation Status: Acute Assessment and Plan: Cardio consult noted. S/p Amiodarone on Metoprolol and Eliquis on oral digoxin (3) Heart failure with preserved ejection fraction: Qualifiers: Heart failure chronicity: unspecified Qualified Code(s): I50.30 - Unspecified diastolic (congestive) heart failure Code(s): I50.30 - Unspecified diastolic (congestive) heart failure Status: Acute Assessment and Plan: GLP per cards and Spironolactone (4) Hyperlipidemia: Qualifiers: Hyperlipidemia type: mixed hyperlipidemia Qualified Code(s): E78.2 - Mixed hyperlipidemia Code(s): E78.5 - Hyperlipidemia, unspecified Status: Acute Assessment and Plan: continue statin (5) Hypothyroidism (acquired): Code(s): E03.9 - Hypothyroidism, unspecified Status: Acute Assessment and Plan: continue synthroid (6) BPH (benign prostatic hyperplasia): Qualifiers: Lower urinary tract symptom presence: symptoms present Lower urinary tract symptom detail: unspecified Qualified Code(s): N40.1 - Benign prostatic hyperplasia with lower urinary tract symptoms Code(s): N40.0 - Benign prostatic hyperplasia without lower urinary tract symptoms Status: Acute Assessment and Plan: Continue home meds Plan Hypoxic respiratory failure resolved Likely from Pneumonia and COPD s/p Rocephin, Doxycycline pt transitioning off iv abx on [address] chest shows Pneumonia Cotnineu levaquin as above AF Elevated troponin likely secondary to AF Continue digoxin metoprolol and Eliquis Cardiology on board Anemia: Recent EGD and colonoscopy negative Iron deficiency sp venofer x3 days Hb 11.1 Hypoglycemia: encouraged to eat more DVT prophylaxis on Eliquis Awaiting placement Subjective Date/time seen: 07/31/24 12:52 Interval history: Comfortable at bedside Review of Systems Review of Systems: mild wheezes in lungs no cough or fever Exam Narrative: General: alert and oriented x3 HEENT: normocephalic, atraumatic. Mucous membranes moist. Respiratory: clear to auscultation Cardiovascular: Regular rate and rhythm, normal S1-S2 upon ascultation. sinus rhythm Abdomen: Soft, round, no pulsatile masses, nondistended and nontender. No rebound, no guarding. Extremities: No cyanosis, clubbing, or edema present. Pulses are palpable 2/2. Active ROM to all four extremities. Neuro: Alert and orientated x 4. PERRLA. Cranial nerves 2-12 intact without focal deficit. Skin: Warm, dry, and intact, without rash, erythema, or lesion. Psych: pleasant, cooperative,normal affect Objective Data Vital Signs Vital Signs: Vital Signs - 24 hr 07/30/24 14:00 07/30/24 16:02 07/30/24 20:00 Temperature 99.1 F Pulse Rate 71 71 74 Respiratory Rate 16 Blood Pressure 118/61 Pulse Oximetry 99 Oxygen Delivery Oxygen Flow Rate 07/30/24 21:09 07/31/24 00:00 07/31/24 04:00 Temperature 97.8 F Pulse Rate 73 62 57 L Respiratory Rate 16 Blood Pressure 142/64 H Pulse Oximetry 100 Oxygen Delivery Oxygen Flow Rate 07/31/24 05:59 07/31/24 07:28 07/31/24 07:28 Temperature 97.7 F Pulse Rate 61 62 62 Respiratory Rate 14 20 20 Blood Pressure 103/44 L Pulse Oximetry 96 94 Oxygen Delivery Nasal Cannula Oxygen Flow Rate 1 07/31/24 08:00 07/31/24 08:50 07/31/24 08:51 Temperature Pulse Rate 60 68 Respiratory Rate Blood Pressure Pulse Oximetry 95 Oxygen Delivery Nasal Cannula Oxygen Flow Rate 1 07/31/24 12:00 Temperature Pulse Rate 72 Respiratory Rate Blood Pressure Pulse Oximetry Oxygen Delivery Oxygen Flow Rate Intake/Output Intake/Output: Intake & Output 07/28/24 07/29/24 07/30/24 07/31/24 23:59 23:59 23:59 23:59 Intake Total 1895 1290 1092 610 Output Total 825 1525 1800 400 Balance 4679 -962 -140 210 Meds/Results Medications: Active Medications Generic Name Dose Route Start Last Admin Trade Name Freq PRN Reason Stop Dose Admin Acetaminophen 650 mg 07/24/24 15:42 Acetaminophen 325 Mg Tablet PO Q4H PRN Mild Pain (1-3) or Fever Hydrocodone Bitart/Acetaminophen 1 tab 07/24/24 15:42 Hydrocodone/Acetaminophen (*Crx) 5-325 Mg Tablet PO Q4H PRN Pain Rated 4-6 Apixaban 5 mg 07/25/24 09:00 07/31/24 08:51 Apixaban 5 Mg Tablet BY MOUTH 5 mg BID NATASHA Administration Dextrose 12.5 gm 07/25/24 04:38 07/25/24 04:57 Dextrose 50% 25 Gm/50 Ml Syringe IV PUSH 12.5 gm PRN PRN Administration Hypoglycemia Protocol Docusate Sodium 100 mg 07/25/24 09:00 07/31/24 08:51 Docusate Sodium 100 Mg Capsule PO 100 mg DAILY NATASHA Administration Dutasteride 0.5 mg 07/25/24 09:00 07/31/24 08:51 Dutasteride 0.5 Mg Capsule PO 0.5 mg DAILY NATASHA Administration Empagliflozin 25 mg 07/25/24 09:00 07/31/24 08:51 Empagliflozin 25 Mg Tablet BY MOUTH 25 mg DAILY NATASHA Administration Finasteride 5 mg 07/25/24 09:00 07/31/24 08:51 Finasteride 5 Mg Tablet PO 5 mg DAILY NATASHA Administration Flecainide Acetate 100 mg 07/27/24 21:00 07/31/24 08:51 Flecainide Acetate 100 Mg Tablet PO 100 mg Q12HR NATASHA Administration Fluticasone/Umeclidinium/Vilanterol 1 puff 07/29/24 12:10 07/31/24 07:27 Fluticasone/Umeclidin/Vilanter 100-62.5-25 Mcg Ellipta INHALATION 1 puff DAILYRT NATASHA Administration Gabapentin 100 mg 07/24/24 19:00 07/31/24 08:51 Gabapentin 100 Mg Capsule PO 100 mg BID NATASHA Administration Glucagon 1 mg 07/25/24 04:38 Glucagon For Inj 1 Mg Vial IM PRN PRN Hypoglycemia Protocol Glucose 15 gm 07/25/24 04:38 Glucose Oral Gel 15 Gm Of Glucse In 37.5 Gm Tube PO PRN PRN Hypoglycemia Protocol Guaifenesin 400 mg 07/27/24 09:13 Guaifenesin 200 Mg/10 Ml Udc PO Q8HR PRN Cough Heparin Sodium (Beef Lung) 50 units 07/26/24 09:00 07/31/24 08:51 Heparin Flush 50 Units/5 Ml Syringe IV PUSH 50 units QAM NATASHA Administration Heparin Sodium (Beef Lung) 50 units 07/25/24 18:45 07/28/24 22:24 Heparin Flush 50 Units/5 Ml Syringe IV PUSH 50 units PRN PRN Administration after intermittent infusion Heparin Sodium (Beef Lung) 50 units 07/25/24 18:45 07/29/24 14:16 Heparin Flush 50 Units/5 Ml Syringe IV PUSH 50 units PRN PRN Administration after blood draws Heparin Sodium (Porcine) 500 units 07/25/24 18:45 Heparin Sodium Lock Flush 500 Units/5 Ml Syringe IV PUSH PRN PRN see comments below Dextrose 1,000 mls @ 100 mls/hr 07/25/24 04:38 Dextrose 5% 1,000 Ml IVPB PRN PRN Hypoglycemia Protocol Levofloxacin 750 mg 07/30/24 14:00 07/30/24 13:13 Levofloxacin 750 Mg Tablet PO 08/01/24 14:01 750 mg Q48H NATASHA Administration Levothyroxine Sodium 44 mcg 07/25/24 06:30 07/31/24 05:56 Levothyroxine Sodium 44 Mcg Tablet PO 44 mcg DAILY@0630 NATASHA Administration Metoprolol Succinate 12.5 mg 07/26/24 21:15 07/30/24 21:05 Metoprolol Succinate Ext Rel 12.5 Mg Tabcr PO 12.5 mg QHS NATASHA Administration Pravastatin Sodium 40 mg 07/25/24 09:00 07/31/24 08:51 Pravastatin Sodium 20 Mg Tablet BY MOUTH 40 mg DAILY NATASHA Administration Promethazine HCl 12.5 mg 07/24/24 15:42 Promethazine Hcl 25 Mg/Ml Ampul IV PUSH Q6H PRN Nausea Sodium Chloride 10 ml 07/25/24 22:00 07/31/24 05:56 Central Line Flush IV PUSH 10 ml Q8HR NATASHA Administration Spironolactone 25 mg 07/29/24 21:00 07/29/24 21:51 Spironolactone 25 Mg Tablet PO 25 mg Q48H NATASHA Administration Tamsulosin HCl 0.4 mg 07/30/24 21:00 07/30/24 21:04 Tamsulosin Hcl 0.4 Mg Capsule PO 0.4 mg HS NATASHA Administration Radiology Results: ITS Impressions Chest X-Ray 07/25/24 23:14 IMPRESSION: No focal infiltrate or effusion. Stable volume loss within the left hemithorax with left apical scarring, unchanged. Chest CT 07/27/24 10:22 IMPRESSION: 1. Severe emphysema with several new pulmonary nodules in the right upper and lower lobes measuring up to 1 cm which are most likely infectious/inflammatory in etiology but would recommend 3 month follow-up low-dose noncontrast chest CT for further evaluation. 2. 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 3. Small right pleural effusion. Labs Labs: Laboratory Results - last 24 hr 07/26/24 07/27/24 07/31/24 16:10 05:58 06:01 WBC 12.8 H RBC 5.35 Hgb 9.9 L Hct 35.4 L MCV 66.2 L MCH 18.5 L MCHC 28.0 L RDW 19.7 H Plt Count 319 MPV 10.3 Immature Gran % (Auto) 0.7 H Neut % (Auto) 85.5 H Lymph % (Auto) 5.9 L [place] % (Auto) 7.3 Eos % (Auto) 0.4 Baso % (Auto) 0.2 Lymph # (Auto) 0.75 L [place] # (Auto) 0.9 H Eos # (Auto) 0.1 Baso # (Auto) 0.0 Abs Immat Gran (auto) 0.09 H Absolute Neuts (auto) 11.0 H Absolute Nucleated RBC 0.000 Band Neutrophils % Not Reportable Nucleated RBC % 0.0 Platelet Estimate Adequate % Immature Plt Fraction 3.9 Hypochromasia 2+ Anisocytosis 1+ Target Cells 1+ Ovalocytes 1+ River Cells 1+ Schistocytes None seen Sodium 136 L Potassium 4.5 Chloride 105 Carbon Dioxide 29 Anion Gap 2 L BUN 35 H Creatinine 1.32 H Estim Creat Clear Calc 36 Estimated GFR 51 L Glucose 71 Calcium 8.9 Magnesium 2.0 Total Bilirubin 0.2 AST 20 ALT 23 Alkaline Phosphatase 32 L Total Protein 5.2 L Albumin 2.6 L Mycoplasma pneumon IgM 701 Urine Pneumococcal Ag Not detected Quality VTE Prophylaxis VTE prophylaxis: mechanical ordered and pharmacologic ordered
[2024-07-31 16:38] LABS: Human Parainfluenza Virus 1 Not Detected (Not Detected); Human Parainfluenza Virus 2 Not Detected (Not Detected); Human Parainfluenza Virus 3 Not Detected (Not Detected); Human Parainfluenza Virus 4 Not Detected (Not Detected); Human RSV B Not Detected (Not Detected)
[2024-07-31 17:28] LABS: Legionella pneumophila Ag Ur. NOT DETECTED
[2024-07-31] MEDS: METOPROLOL SUCCINATE EXT REL 12.5 MG TABCR PO (20:54)
[2024-07-31] MEDS: SPIRONOLACTONE 25 MG TABLET PO (20:55)
[2024-07-31] MEDS: TAMSULOSIN HCL 0.4 MG CAPSULE PO (20:55)
[2024-08-01] VITALS (13 sets, daily range): BP systolic 111–118; BP diastolic 51–60; PULSE 57–74; RESP 16–20; TEMP 36.4–36.7; O2SAT 95–100
[2024-08-01] MEDS: LEVOTHYROXINE SODIUM PO (05:56)
[2024-08-01] MEDS: CENTRAL LINE FLUSH 10 ML IV PUSH ×3 (05:56→20:39)
[2024-08-01] MEDS: FLUTICASONE/UMECLIDIN/VILANTER 100-62.5-25 MCG ELLIPTA 1 PUFF INHALATION (08:04)
[2024-08-01] MEDS: FLECAINIDE ACETATE 100 MG TABLET PO ×2 (08:29→20:38)
[2024-08-01] MEDS: EMPAGLIFLOZIN 25 MG TABLET BY MOUTH (08:29)
[2024-08-01] MEDS: APIXABAN 5 MG TABLET BY MOUTH ×2 (08:29→16:46)
[2024-08-01] MEDS: GABAPENTIN 100 MG CAPSULE PO ×2 (08:29→16:46)
[2024-08-01] MEDS: FINASTERIDE 5 MG TABLET PO (08:29)
[2024-08-01] MEDS: PRAVASTATIN SODIUM 20 MG TABLET 40 MG BY MOUTH (08:29)
[2024-08-01] MEDS: DUTASTERIDE 0.5 MG CAPSULE PO (08:29)
[2024-08-01] MEDS: DOCUSATE SODIUM 100 MG CAPSULE PO (08:30)
[2024-08-01] MEDS: FUROSEMIDE INJ 40 MG/4 ML VIAL 20 MG IV PUSH ×2 (08:30→16:46)
--- NOTE | 2024-08-01 10:59 | P.PNIM_ITS ---
Progress Note: A&P Assessment and Plan (1) COPD exacerbation: Code(s): J44.1 - Chronic obstructive pulmonary disease with (acute) exacerbation Status: Acute Assessment and Plan: S/p Rocephin Completed antibiotics (levaquin) DuoNeb q.6 dc steroids Guaifenesin Incentive spirometer Chest x-ray with chronic interstitial change with left-sided volume loss unchanged from prior without focal infiltrate or effusion. ct reviewed earlier on admission showed pneumonia pulmonology happy with progress awaiting placement (2) Atrial fibrillation with RVR: Code(s): I48.91 - Unspecified atrial fibrillation Status: Acute Assessment and Plan: Cardio consult noted. S/p Amiodarone on Metoprolol and Eliquis on oral digoxin (3) Heart failure with preserved ejection fraction: Qualifiers: Heart failure chronicity: unspecified Qualified Code(s): I50.30 - Unspecified diastolic (congestive) heart failure Code(s): I50.30 - Unspecified diastolic (congestive) heart failure Status: Acute Assessment and Plan: GLP per cards and Spironolactone (4) Hyperlipidemia: Qualifiers: Hyperlipidemia type: mixed hyperlipidemia Qualified Code(s): E78.2 - Mixed hyperlipidemia Code(s): E78.5 - Hyperlipidemia, unspecified Status: Acute Assessment and Plan: continue statin (5) Hypothyroidism (acquired): Code(s): E03.9 - Hypothyroidism, unspecified Status: Acute Assessment and Plan: continue synthroid (6) BPH (benign prostatic hyperplasia): Qualifiers: Lower urinary tract symptom presence: symptoms present Lower urinary tract symptom detail: unspecified Qualified Code(s): N40.1 - Benign prostatic hyperplasia with lower urinary tract symptoms Code(s): N40.0 - Benign prostatic hyperplasia without lower urinary tract symptoms Status: Acute Assessment and Plan: Continue home meds Plan Hypoxic respiratory failure resolving Likely from Pneumonia and COPD completed antibiotics on [address] chest shows Pneumonia monitor AF Elevated troponin likely secondary to AF Continue digoxin metoprolol and Eliquis Cardiology on board Anemia: Recent EGD and colonoscopy negative Iron deficiency sp venofer x3 days Hb 11.1 Hypoglycemia: encouraged to eat more DVT prophylaxis on Eliquis Awaiting placement Subjective Date/time seen: 08/01/24 10:59 Interval history: Comfortable at bedside awaiting placement still on 1 liter oxygen by [place] Review of Systems Review of Systems: mild wheezes in lungs no cough or fever Exam Narrative: General: alert and oriented x3 HEENT: normocephalic, atraumatic. Mucous membranes moist. Respiratory: clear to auscultation Cardiovascular: Regular rate and rhythm, normal S1-S2 upon ascultation. sinus rhythm Abdomen: Soft, round, no pulsatile masses, nondistended and nontender. No rebound, no guarding. Extremities: No cyanosis, clubbing, or edema present. Pulses are palpable 2/2. Active ROM to all four extremities. Neuro: Alert and orientated x 4. PERRLA. Cranial nerves 2-12 intact without focal deficit. Skin: Warm, dry, and intact, without rash, erythema, or lesion. Psych: pleasant, cooperative,normal affect Objective Data Vital Signs Vital Signs: Vital Signs - 24 hr 07/31/24 12:00 07/31/24 14:02 07/31/24 16:00 Temperature 97.6 F Pulse Rate 72 73 67 Respiratory Rate 16 Blood Pressure 104/55 L Pulse Oximetry 97 Oxygen Delivery Oxygen Flow Rate Fraction of Inspired Oxygen 07/31/24 20:00 07/31/24 20:00 07/31/24 20:57 Temperature 98.6 F Pulse Rate 78 79 Respiratory Rate 16 Blood Pressure 116/52 L Pulse Oximetry 96 100 Oxygen Delivery Nasal Cannula Oxygen Flow Rate 1 Fraction of Inspired Oxygen 07/31/24 21:25 08/01/24 00:00 08/01/24 04:00 Temperature Pulse Rate 61 57 L Respiratory Rate Blood Pressure Pulse Oximetry 95 Oxygen Delivery Nasal Cannula Oxygen Flow Rate 1 Fraction of Inspired Oxygen 08/01/24 06:45 08/01/24 08:00 08/01/24 08:06 Temperature 97.7 F Pulse Rate 62 63 Respiratory Rate 16 Blood Pressure 118/51 L Pulse Oximetry 96 95 Oxygen Delivery Nasal Cannula Oxygen Flow Rate 1 Fraction of Inspired Oxygen 08/01/24 08:06 08/01/24 08:29 08/01/24 08:30 Temperature Pulse Rate 67 65 Respiratory Rate 20 Blood Pressure Pulse Oximetry 96 Oxygen Delivery Nasal Cannula Oxygen Flow Rate 3 Fraction of Inspired Oxygen Intake/Output Intake/Output: Intake & Output 07/29/24 07/30/24 07/31/24 08/01/24 23:59 23:59 23:59 23:59 Intake Total 1290 1092 970 490 Output Total 1525 1800 1050 600 Balance -235 -708 -80 -110 Meds/Results Medications: Active Medications Generic Name Dose Route Start Last Admin Trade Name Freq PRN Reason Stop Dose Admin Acetaminophen 650 mg 07/24/24 15:42 Acetaminophen 325 Mg Tablet PO Q4H PRN Mild Pain (1-3) or Fever Hydrocodone Bitart/Acetaminophen 1 tab 07/24/24 15:42 Hydrocodone/Acetaminophen (*Crx) 5-325 Mg Tablet PO Q4H PRN Pain Rated 4-6 Apixaban 5 mg 07/25/24 09:00 08/01/24 08:29 Apixaban 5 Mg Tablet BY MOUTH 5 mg BID NATASHA Administration Dextrose 12.5 gm 07/25/24 04:38 07/25/24 04:57 Dextrose 50% 25 Gm/50 Ml Syringe IV PUSH 12.5 gm PRN PRN Administration Hypoglycemia Protocol Docusate Sodium 100 mg 07/25/24 09:00 08/01/24 08:30 Docusate Sodium 100 Mg Capsule PO 100 mg DAILY NATASHA Administration Dutasteride 0.5 mg 07/25/24 09:00 08/01/24 08:29 Dutasteride 0.5 Mg Capsule PO 0.5 mg DAILY NATASHA Administration Empagliflozin 25 mg 07/25/24 09:00 08/01/24 08:29 Empagliflozin 25 Mg Tablet BY MOUTH 25 mg DAILY NATASHA Administration Finasteride 5 mg 07/25/24 09:00 08/01/24 08:29 Finasteride 5 Mg Tablet PO 5 mg DAILY NATASHA Administration Flecainide Acetate 100 mg 07/27/24 21:00 08/01/24 08:29 Flecainide Acetate 100 Mg Tablet PO 100 mg Q12HR NATASHA Administration Fluticasone/Umeclidinium/Vilanterol 1 puff 07/29/24 12:10 08/01/24 08:04 Fluticasone/Umeclidin/Vilanter 100-62.5-25 Mcg Ellipta INHALATION 1 puff DAILYRT NATASHA Administration Furosemide 20 mg 07/31/24 17:00 08/01/24 08:30 Furosemide Inj 40 Mg/4 Ml Vial IV PUSH 20 mg BID NATASHA Administration Gabapentin 100 mg 07/24/24 19:00 08/01/24 08:29 Gabapentin 100 Mg Capsule PO 100 mg BID NATASHA Administration Glucagon 1 mg 07/25/24 04:38 Glucagon For Inj 1 Mg Vial IM PRN PRN Hypoglycemia Protocol Glucose 15 gm 07/25/24 04:38 Glucose Oral Gel 15 Gm Of Glucse In 37.5 Gm Tube PO PRN PRN Hypoglycemia Protocol Guaifenesin 400 mg 07/27/24 09:13 Guaifenesin 200 Mg/10 Ml Udc PO Q8HR PRN Cough Heparin Sodium (Beef Lung) 50 units 07/26/24 09:00 08/01/24 08:30 Heparin Flush 50 Units/5 Ml Syringe IV PUSH 50 units QAM NATASHA Administration Heparin Sodium (Beef Lung) 50 units 07/25/24 18:45 07/28/24 22:24 Heparin Flush 50 Units/5 Ml Syringe IV PUSH 50 units PRN PRN Administration after intermittent infusion Heparin Sodium (Beef Lung) 50 units 07/25/24 18:45 07/29/24 14:16 Heparin Flush 50 Units/5 Ml Syringe IV PUSH 50 units PRN PRN Administration after blood draws Heparin Sodium (Porcine) 500 units 07/25/24 18:45 Heparin Sodium Lock Flush 500 Units/5 Ml Syringe IV PUSH PRN PRN see comments below Dextrose 1,000 mls @ 100 mls/hr 07/25/24 04:38 Dextrose 5% 1,000 Ml IVPB PRN PRN Hypoglycemia Protocol Levofloxacin 750 mg 07/30/24 14:00 07/30/24 13:13 Levofloxacin 750 Mg Tablet PO 08/01/24 14:01 750 mg Q48H NATASHA Administration Levothyroxine Sodium 44 mcg 07/25/24 06:30 08/01/24 05:56 Levothyroxine Sodium 44 Mcg Tablet PO 44 mcg DAILY@0630 NATASHA Administration Metoprolol Succinate 12.5 mg 07/26/24 21:15 07/31/24 20:54 Metoprolol Succinate Ext Rel 12.5 Mg Tabcr PO 12.5 mg QHS NATASHA Administration Polyethylene Glycol 17 gm 08/01/24 09:47 Polyethylene Glycol 3350 17 Gm Powd.Pack PO QAM PRN Constipation Pravastatin Sodium 40 mg 07/25/24 09:00 08/01/24 08:29 Pravastatin Sodium 20 Mg Tablet BY MOUTH 40 mg DAILY NATASHA Administration Promethazine HCl 12.5 mg 07/24/24 15:42 Promethazine Hcl 25 Mg/Ml Ampul IV PUSH Q6H PRN Nausea Sodium Chloride 10 ml 07/25/24 22:00 08/01/24 05:56 Central Line Flush IV PUSH 10 ml Q8HR NATASHA Administration Spironolactone 25 mg 07/29/24 21:00 07/31/24 20:55 Spironolactone 25 Mg Tablet PO 25 mg Q48H NATASHA Administration Tamsulosin HCl 0.4 mg 07/30/24 21:00 07/31/24 20:55 Tamsulosin Hcl 0.4 Mg Capsule PO 0.4 mg HS NATASHA Administration Radiology Results: ITS Impressions Chest X-Ray 07/25/24 23:14 IMPRESSION: No focal infiltrate or effusion. Stable volume loss within the left hemithorax with left apical scarring, unchanged. Chest CT 07/27/24 10:22 IMPRESSION: 1. Severe emphysema with several new pulmonary nodules in the right upper and lower lobes measuring up to 1 cm which are most likely infectious/inflammatory in etiology but would recommend 3 month follow-up low-dose noncontrast chest CT for further evaluation. 2. 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 3. Small right pleural effusion. Labs Labs: Laboratory Results - last 24 hr 07/26/24 07/26/24 16:10 17:40 Nasal RSV Type A (PCR) Not detected Nasal RSV Type B (PCR) Not detected Chlamy pneumoniae PCR Not detected Adenovirus DNA Not detected Human Bocavirus (DEREK) Not detected Coronavirus Type OC43 Not detected Coronavirus Type HKU1 Not detected Coronavirus Type 229E Not detected Coronavirus Type NL63 Not detected Human Metapneumovir PCR Not detected Influenza A (PCR) Not detected Influenza A (H1) RNA Not detected Influenza A (H3) PCR Not detected Ur L.pneumophila Ag Not detected M. pneumoniae DNA Not detected Parainfluenza PCR Not detected Parainfluenza 2 (PCR) Not detected Parainfluenza 3 RNA (PCR) Not detected Parainfluenza 4 (PCR) Not detected Rhino/Enterovirus (DEREK) Not detected SARS-CoV-2 RNA (RT-PCR) Not detected Influenza Type B (PCR) Not detected Misc Test Comment see note Quality VTE Prophylaxis VTE prophylaxis: mechanical ordered and pharmacologic ordered
[2024-08-01 11:48] LABS: Alpha-1-Antitrypsin, QN. 195 mg/dL (83-199)
--- NOTE | 2024-08-01 12:45 | PCNWS ---
Weekly nutritional screen. Patient is tolerating current Heart Healthy diet with adequate intake. No weight loss reported. No nutritional needs at this time.
[2024-08-01] MEDS: TAMSULOSIN HCL 0.4 MG CAPSULE PO (20:38)
[2024-08-01] MEDS: METOPROLOL SUCCINATE EXT REL 12.5 MG TABCR PO (20:38)
[2024-08-02] VITALS (12 sets, daily range): BP systolic 98–119; BP diastolic 45–54; PULSE 61–77; RESP 14–18; TEMP 35.9–36.7; O2SAT 95–100
[2024-08-02] MEDS: LEVOTHYROXINE SODIUM PO (06:34)
[2024-08-02] MEDS: CENTRAL LINE FLUSH 10 ML IV PUSH ×3 (06:36→20:35)
[2024-08-02] MEDS: FLUTICASONE/UMECLIDIN/VILANTER 100-62.5-25 MCG ELLIPTA 1 PUFF INHALATION (08:58)
[2024-08-02] MEDS: GABAPENTIN 100 MG CAPSULE PO ×2 (09:05→17:40)
[2024-08-02] MEDS: FLECAINIDE ACETATE 100 MG TABLET PO ×2 (09:05→20:34)
[2024-08-02] MEDS: DUTASTERIDE 0.5 MG CAPSULE PO (09:05)
[2024-08-02] MEDS: PRAVASTATIN SODIUM 20 MG TABLET 40 MG BY MOUTH (09:05)
[2024-08-02] MEDS: DOCUSATE SODIUM 100 MG CAPSULE PO (09:06)
[2024-08-02] MEDS: EMPAGLIFLOZIN 25 MG TABLET BY MOUTH (09:06)
[2024-08-02] MEDS: FINASTERIDE 5 MG TABLET PO (09:06)
[2024-08-02] MEDS: APIXABAN 5 MG TABLET BY MOUTH ×2 (09:06→17:40)
--- NOTE | 2024-08-02 15:30 | P.PNIM_ITS ---
Progress Note: A&P Assessment and Plan (1) COPD exacerbation: Code(s): J44.1 - Chronic obstructive pulmonary disease with (acute) exacerbation Status: Acute Assessment and Plan: S/p Rocephin Completed antibiotics (levaquin) DuoNeb q.6 dc steroids Guaifenesin Incentive spirometer Chest x-ray with chronic interstitial change with left-sided volume loss unchanged from prior without focal infiltrate or effusion. ct reviewed earlier on admission showed pneumonia pulmonology happy with progress awaiting placement (2) Atrial fibrillation with RVR: Code(s): I48.91 - Unspecified atrial fibrillation Status: Acute Assessment and Plan: Cardio consult noted. S/p Amiodarone on Metoprolol and Eliquis on oral digoxin (3) Heart failure with preserved ejection fraction: Qualifiers: Heart failure chronicity: unspecified Qualified Code(s): I50.30 - Unspecified diastolic (congestive) heart failure Code(s): I50.30 - Unspecified diastolic (congestive) heart failure Status: Acute Assessment and Plan: GLP per cards and Spironolactone (4) Hyperlipidemia: Qualifiers: Hyperlipidemia type: mixed hyperlipidemia Qualified Code(s): E78.2 - Mixed hyperlipidemia Code(s): E78.5 - Hyperlipidemia, unspecified Status: Acute Assessment and Plan: continue statin (5) Hypothyroidism (acquired): Code(s): E03.9 - Hypothyroidism, unspecified Status: Acute Assessment and Plan: continue synthroid (6) BPH (benign prostatic hyperplasia): Qualifiers: Lower urinary tract symptom presence: symptoms present Lower urinary tract symptom detail: unspecified Qualified Code(s): N40.1 - Benign prostatic hyperplasia with lower urinary tract symptoms Code(s): N40.0 - Benign prostatic hyperplasia without lower urinary tract symptoms Status: Acute Assessment and Plan: Continue home meds Plan Hypoxic respiratory failure resolving Likely from Pneumonia and COPD completed antibiotics on [address] chest shows Pneumonia monitor AF Elevated troponin likely secondary to AF Continue digoxin metoprolol and Eliquis Cardiology on board Anemia: Recent EGD and colonoscopy negative Iron deficiency sp venofer x3 days Hb 9.9 Hypoglycemia: encouraged to eat more DVT prophylaxis on Eliquis Awaiting placement Subjective Date/time seen: 08/02/24 15:30 Interval history: Comfortable at bedside awaiting placement still on 1 liter oxygen by [place] Review of Systems Review of Systems: mild wheezes in lungs no cough or fever Exam Narrative: General: alert and oriented x3 HEENT: normocephalic, atraumatic. Mucous membranes moist. Respiratory: clear to auscultation Cardiovascular: Regular rate and rhythm, normal S1-S2 upon ascultation. sinus rhythm Abdomen: Soft, round, no pulsatile masses, nondistended and nontender. No rebound, no guarding. Extremities: No cyanosis, clubbing, or edema present. Pulses are palpable 2/2. Active ROM to all four extremities. Neuro: Alert and orientated x 4. PERRLA. Cranial nerves 2-12 intact without focal deficit. Skin: Warm, dry, and intact, without rash, erythema, or lesion. Psych: pleasant, cooperative,normal affect Objective Data Vital Signs Vital Signs: Vital Signs - 24 hr 08/01/24 16:00 08/01/24 20:00 08/01/24 20:00 Temperature Pulse Rate 71 70 Respiratory Rate Blood Pressure Pulse Oximetry 100 Oxygen Delivery Nasal Cannula Oxygen Flow Rate 1 Fraction of Inspired Oxygen 08/01/24 20:05 08/01/24 20:38 08/01/24 20:38 Temperature 97.5 F L Pulse Rate 70 70 70 Respiratory Rate 16 Blood Pressure 112/55 L Pulse Oximetry 100 Oxygen Delivery Oxygen Flow Rate Fraction of Inspired Oxygen 08/02/24 00:00 08/02/24 04:00 08/02/24 07:08 Temperature 97.7 F Pulse Rate 77 61 67 Respiratory Rate 14 Blood Pressure 119/54 L Pulse Oximetry 95 Oxygen Delivery Oxygen Flow Rate Fraction of Inspired Oxygen 08/02/24 08:00 08/02/24 08:58 08/02/24 09:05 Temperature Pulse Rate 65 70 Respiratory Rate Blood Pressure Pulse Oximetry 95 Oxygen Delivery Nasal Cannula Oxygen Flow Rate 1 Fraction of Inspired Oxygen 08/02/24 09:05 08/02/24 12:00 08/02/24 12:23 Temperature Pulse Rate 75 Respiratory Rate Blood Pressure Pulse Oximetry 100 96 Oxygen Delivery Nasal Cannula Room Air Oxygen Flow Rate 1 Fraction of Inspired Oxygen 08/02/24 14:00 Temperature 96.7 F L Pulse Rate 73 Respiratory Rate 18 Blood Pressure 98/45 L Pulse Oximetry 97 Oxygen Delivery Oxygen Flow Rate Fraction of Inspired Oxygen Intake/Output Intake/Output: Intake & Output 07/30/24 07/31/24 08/01/24 08/02/24 23:59 23:59 23:59 23:59 Intake Total 4434 289 8840 390 Output Total 1800 1050 4 800 [facility] -708 [phone] Meds/Results Medications: Active Medications Generic Name Dose Route Start Last Admin Trade Name Freq PRN Reason Stop Dose Admin Acetaminophen 650 mg 07/24/24 15:42 Acetaminophen 325 Mg Tablet PO Q4H PRN Mild Pain (1-3) or Fever Hydrocodone Bitart/Acetaminophen 1 tab 07/24/24 15:42 Hydrocodone/Acetaminophen (*Crx) 5-325 Mg Tablet PO Q4H PRN Pain Rated 4-6 Apixaban 5 mg 07/25/24 09:00 08/02/24 09:06 Apixaban 5 Mg Tablet BY MOUTH 5 mg BID NATASHA Administration Dextrose 12.5 gm 07/25/24 04:38 07/25/24 04:57 Dextrose 50% 25 Gm/50 Ml Syringe IV PUSH 12.5 gm PRN PRN Administration Hypoglycemia Protocol Docusate Sodium 100 mg 07/25/24 09:00 08/02/24 09:06 Docusate Sodium 100 Mg Capsule PO 100 mg DAILY NATASHA Administration Dutasteride 0.5 mg 07/25/24 09:00 08/02/24 09:05 Dutasteride 0.5 Mg Capsule PO 0.5 mg DAILY NATASHA Administration Empagliflozin 25 mg 07/25/24 09:00 08/02/24 09:06 Empagliflozin 25 Mg Tablet BY MOUTH 25 mg DAILY NATASHA Administration Finasteride 5 mg 07/25/24 09:00 08/02/24 09:06 Finasteride 5 Mg Tablet PO 5 mg DAILY NATASHA Administration Flecainide Acetate 100 mg 07/27/24 21:00 08/02/24 09:05 Flecainide Acetate 100 Mg Tablet PO 100 mg Q12HR NATASHA Administration Fluticasone/Umeclidinium/Vilanterol 1 puff 07/29/24 12:10 08/02/24 08:58 Fluticasone/Umeclidin/Vilanter 100-62.5-25 Mcg Ellipta INHALATION 1 puff DAILYRT NATASHA Administration Furosemide 20 mg 07/31/24 17:00 08/02/24 10:13 Furosemide Inj 40 Mg/4 Ml Vial IV PUSH Not Given BID NATASHA Gabapentin 100 mg 07/24/24 19:00 08/02/24 09:05 Gabapentin 100 Mg Capsule PO 100 mg BID NATASHA Administration Glucagon 1 mg 07/25/24 04:38 Glucagon For Inj 1 Mg Vial IM PRN PRN Hypoglycemia Protocol Glucose 15 gm 07/25/24 04:38 Glucose Oral Gel 15 Gm Of Glucse In 37.5 Gm Tube PO PRN PRN Hypoglycemia Protocol Guaifenesin 400 mg 07/27/24 09:13 Guaifenesin 200 Mg/10 Ml Udc PO Q8HR PRN Cough Heparin Sodium (Beef Lung) 50 units 07/26/24 09:00 08/02/24 09:06 Heparin Flush 50 Units/5 Ml Syringe IV PUSH 50 units QAM NATASHA Administration Heparin Sodium (Beef Lung) 50 units 07/25/24 18:45 07/28/24 22:24 Heparin Flush 50 Units/5 Ml Syringe IV PUSH 50 units PRN PRN Administration after intermittent infusion Heparin Sodium (Beef Lung) 50 units 07/25/24 18:45 07/29/24 14:16 Heparin Flush 50 Units/5 Ml Syringe IV PUSH 50 units PRN PRN Administration after blood draws Heparin Sodium (Porcine) 500 units 07/25/24 18:45 Heparin Sodium Lock Flush 500 Units/5 Ml Syringe IV PUSH PRN PRN see comments below Dextrose 1,000 mls @ 100 mls/hr 07/25/24 04:38 Dextrose 5% 1,000 Ml IVPB PRN PRN Hypoglycemia Protocol Levothyroxine Sodium 44 mcg 07/25/24 06:30 08/02/24 06:34 Levothyroxine Sodium 44 Mcg Tablet PO 44 mcg DAILY@0630 NATASHA Administration Metoprolol Succinate 12.5 mg 07/26/24 21:15 08/01/24 20:38 Metoprolol Succinate Ext Rel 12.5 Mg Tabcr PO 12.5 mg QHS NATASHA Administration Polyethylene Glycol 17 gm 08/01/24 09:47 Polyethylene Glycol 3350 17 Gm Powd.Pack PO QAM PRN Constipation Pravastatin Sodium 40 mg 07/25/24 09:00 08/02/24 09:05 Pravastatin Sodium 20 Mg Tablet BY MOUTH 40 mg DAILY NATASHA Administration Promethazine HCl 12.5 mg 07/24/24 15:42 Promethazine Hcl 25 Mg/Ml Ampul IV PUSH Q6H PRN Nausea Sodium Chloride 10 ml 07/25/24 22:00 08/02/24 06:36 Central Line Flush IV PUSH 10 ml Q8HR NATASHA Administration Spironolactone 25 mg 07/29/24 21:00 07/31/24 20:55 Spironolactone 25 Mg Tablet PO 25 mg Q48H NATASHA Administration Tamsulosin HCl 0.4 mg 07/30/24 21:00 08/01/24 20:38 Tamsulosin Hcl 0.4 Mg Capsule PO 0.4 mg HS NATASHA Administration Radiology Results: ITS Impressions Chest X-Ray 07/25/24 23:14 IMPRESSION: No focal infiltrate or effusion. Stable volume loss within the left hemithorax with left apical scarring, unchanged. Chest CT 07/27/24 10:22 IMPRESSION: 1. Severe emphysema with several new pulmonary nodules in the right upper and lower lobes measuring up to 1 cm which are most likely infectious/inflammatory in etiology but would recommend 3 month follow-up low-dose noncontrast chest CT for further evaluation. 2. 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 3. Small right pleural effusion. Quality VTE Prophylaxis VTE prophylaxis: mechanical ordered and pharmacologic ordered
[2024-08-02] MEDS: METOPROLOL SUCCINATE EXT REL 12.5 MG TABCR PO (20:34)
[2024-08-02] MEDS: TAMSULOSIN HCL 0.4 MG CAPSULE PO (20:34)
[2024-08-02] MEDS: SPIRONOLACTONE 25 MG TABLET PO (20:34)
[2024-08-03] VITALS (9 sets, daily range): BP systolic 104–111; BP diastolic 41–51; PULSE 58–78; RESP 14–18; TEMP 36.4–36.6; O2SAT 86–100
[2024-08-03] MEDS: CENTRAL LINE FLUSH 10 ML IV PUSH ×3 (05:10→20:36)
[2024-08-03] MEDS: LEVOTHYROXINE SODIUM PO (05:10)
[2024-08-03 05:41] LABS: Hematocrit 33.1 % (42.0-52.0); Hemoglobin 9.7 g/dL (14.0-18.0); Immature Granulocyte Percent A 0.8 % (0-0.5); Immature Platelet Fraction Pct 4.8 % (0.9-11.2); Lymphocytes Absolute Auto 0.96 K/mm3 (0.9-3.2); Mean Corpuscular HGB Conc 29.3 g/dl (32-36); Mean Corpuscular Hemoglobin 19.4 pg (26-34); Mean Corpuscular Volume 66.1 fl (80-100); Nucleated Red Blood Cells Absolute Auto 0.000 K/mm3 (0.0-0.012); Nucleated Red Blood Cells Perc 0.0 % (0.0-0.2); Platelet Count Result 276 k/mm3 (150-375); Red Blood Count 5.01 M/mm3 (4.6-6.20); White Blood Count 18.4 K/mm3 (4.5-10.0)
[2024-08-03 05:50] LABS: Alanine Aminotransferase 23 U/L (6-50); Albumin Level 2.6 g/dL (3.5-5.1); Alkaline Phosphatase 34 U/L (38-126); Anion Gap 1 mmol/L (4-12); Aspartate Amino Transferase 25 U/L (17-59); Bilirubin,Total 0.3 mg/dL (0.2-1.3); Blood Urea Nitrogen 30 mg/dL (9-20); Calcium 8.5 mg/dL (8.4-10.2); Carbon Dioxide 30 mmol/L (22-30); Chloride 102 mmol/L (98-107); Estimated CRCL calculation 39 ml/min; Estimated Glomerular Filt Rate 57; Glucose 82 mg/dL (65-110); Magnesium 1.9 mg/dL (1.6-2.3); Potassium 4.3 mmol/L (3.4-5.0); Sodium 133 mmol/L (137-145); Total Protein 5.2 g/dL (6.3-8.2)
[2024-08-03 06:11] LABS: Anisocytosis 1+; Hypochromasia 2+; Ovalocytes 1+; Schistocytes None Seen; Target Cells 1+
[2024-08-03] MEDS: EMPAGLIFLOZIN 25 MG TABLET BY MOUTH (09:09)
[2024-08-03] MEDS: DOCUSATE SODIUM 100 MG CAPSULE PO (09:09)
[2024-08-03] MEDS: APIXABAN 5 MG TABLET BY MOUTH ×2 (09:09→17:47)
[2024-08-03] MEDS: DUTASTERIDE 0.5 MG CAPSULE PO (09:09)
[2024-08-03] MEDS: FINASTERIDE 5 MG TABLET PO (09:10)
[2024-08-03] MEDS: FLECAINIDE ACETATE 100 MG TABLET PO ×2 (09:10→20:36)
[2024-08-03] MEDS: PRAVASTATIN SODIUM 20 MG TABLET 40 MG BY MOUTH (09:10)
[2024-08-03] MEDS: GABAPENTIN 100 MG CAPSULE PO ×2 (09:10→17:47)
[2024-08-03] MEDS: FUROSEMIDE INJ 40 MG/4 ML VIAL 20 MG IV PUSH (09:10)
--- NOTE | 2024-08-03 10:50 | P.PNIM_ITS ---
Progress Note: A&P Assessment and Plan (1) COPD exacerbation: Code(s): J44.1 - Chronic obstructive pulmonary disease with (acute) exacerbation Status: Acute Assessment and Plan: S/p Rocephin Completed antibiotics (levaquin) DuoNeb q.6 dc steroids Guaifenesin Incentive spirometer Chest x-ray with chronic interstitial change with left-sided volume loss unchanged from prior without focal infiltrate or effusion. ct reviewed earlier on admission showed pneumonia pulmonology happy with progress awaiting placement (2) Atrial fibrillation with RVR: Code(s): I48.91 - Unspecified atrial fibrillation Status: Acute Assessment and Plan: Cardio consult noted. S/p Amiodarone on Metoprolol and Eliquis on oral digoxin (3) Heart failure with preserved ejection fraction: Qualifiers: Heart failure chronicity: unspecified Qualified Code(s): I50.30 - Unspecified diastolic (congestive) heart failure Code(s): I50.30 - Unspecified diastolic (congestive) heart failure Status: Acute Assessment and Plan: GLP per cards and Spironolactone (4) Hyperlipidemia: Qualifiers: Hyperlipidemia type: mixed hyperlipidemia Qualified Code(s): E78.2 - Mixed hyperlipidemia Code(s): E78.5 - Hyperlipidemia, unspecified Status: Acute Assessment and Plan: continue statin (5) Hypothyroidism (acquired): Code(s): E03.9 - Hypothyroidism, unspecified Status: Acute Assessment and Plan: continue synthroid (6) BPH (benign prostatic hyperplasia): Qualifiers: Lower urinary tract symptom presence: symptoms present Lower urinary tract symptom detail: unspecified Qualified Code(s): N40.1 - Benign prostatic hyperplasia with lower urinary tract symptoms Code(s): N40.0 - Benign prostatic hyperplasia without lower urinary tract symptoms Status: Acute Assessment and Plan: Continue home meds Plan Hypoxic respiratory failure resolving Likely from Pneumonia and COPD completed antibiotics on [address] chest shows Pneumonia monitor AF Elevated troponin likely secondary to AF Continue digoxin metoprolol and Eliquis Cardiology on board Anemia: Recent EGD and colonoscopy negative Iron deficiency sp venofer x3 days Hb 9.9 Hypoglycemia: encouraged to eat more DVT prophylaxis on Eliquis Awaiting placement Subjective Date/time seen: 08/03/24 10:50 Interval history: Comfortable at bedside awaiting placement Review of Systems Review of Systems: mild wheezes in lungs no cough or fever Exam Narrative: General: alert and oriented x3 HEENT: normocephalic, atraumatic. Mucous membranes moist. Respiratory: clear to auscultation Cardiovascular: Regular rate and rhythm, normal S1-S2 upon ascultation. sinus rhythm Abdomen: Soft, round, no pulsatile masses, nondistended and nontender. No rebound, no guarding. Extremities: No cyanosis, clubbing, or edema present. Pulses are palpable 2/2. Active ROM to all four extremities. Neuro: Alert and orientated x 4. PERRLA. Cranial nerves 2-12 intact without focal deficit. Skin: Warm, dry, and intact, without rash, erythema, or lesion. Psych: pleasant, cooperative,normal affect Objective Data Vital Signs Vital Signs: Vital Signs - 24 hr 08/02/24 12:00 08/02/24 12:23 08/02/24 14:00 Temperature 96.7 F L Pulse Rate 75 73 Respiratory Rate 18 Blood Pressure 98/45 L Pulse Oximetry 96 97 Oxygen Delivery Room Air 08/02/24 20:00 08/02/24 20:34 08/02/24 20:34 Temperature Pulse Rate 70 70 Respiratory Rate Blood Pressure Pulse Oximetry 96 Oxygen Delivery Room Air 08/02/24 21:37 08/03/24 06:00 08/03/24 08:00 Temperature 98.0 F 97.6 F Pulse Rate 70 58 L 78 Respiratory Rate 18 16 14 Blood Pressure 109/54 L 111/41 L Pulse Oximetry 96 92 Oxygen Delivery 08/03/24 08:26 08/03/24 08:53 08/03/24 09:10 Temperature Pulse Rate 68 78 78 Respiratory Rate 14 Blood Pressure 106/51 L Pulse Oximetry 98 86 L Oxygen Delivery Room Air Intake/Output Intake/Output: Intake & Output 07/31/24 08/01/24 08/02/24 08/03/24 23:59 23:59 23:59 23:59 Intake Total 970 1570 790 240 Output Total 1050 8 3685 540 [facility] -80 [phone] Meds/Results Medications: Active Medications Generic Name Dose Route Start Last Admin Trade Name Freq PRN Reason Stop Dose Admin Acetaminophen 650 mg 07/24/24 15:42 Acetaminophen 325 Mg Tablet PO Q4H PRN Mild Pain (1-3) or Fever Hydrocodone Bitart/Acetaminophen 1 tab 07/24/24 15:42 Hydrocodone/Acetaminophen (*Crx) 5-325 Mg Tablet PO Q4H PRN Pain Rated 4-6 Apixaban 5 mg 07/25/24 09:00 08/03/24 09:09 Apixaban 5 Mg Tablet BY MOUTH 5 mg BID NATASHA Administration Dextrose 12.5 gm 07/25/24 04:38 07/25/24 04:57 Dextrose 50% 25 Gm/50 Ml Syringe IV PUSH 12.5 gm PRN PRN Administration Hypoglycemia Protocol Docusate Sodium 100 mg 07/25/24 09:00 08/03/24 09:09 Docusate Sodium 100 Mg Capsule PO 100 mg DAILY NATASHA Administration Dutasteride 0.5 mg 07/25/24 09:00 08/03/24 09:09 Dutasteride 0.5 Mg Capsule PO 0.5 mg DAILY NATASHA Administration Empagliflozin 25 mg 07/25/24 09:00 08/03/24 09:09 Empagliflozin 25 Mg Tablet BY MOUTH 25 mg DAILY NATASHA Administration Finasteride 5 mg 07/25/24 09:00 08/03/24 09:10 Finasteride 5 Mg Tablet PO 5 mg DAILY NATASHA Administration Flecainide Acetate 100 mg 07/27/24 21:00 08/03/24 09:10 Flecainide Acetate 100 Mg Tablet PO 100 mg Q12HR NATASHA Administration Fluticasone/Umeclidinium/Vilanterol 1 puff 07/29/24 12:10 08/02/24 08:58 Fluticasone/Umeclidin/Vilanter 100-62.5-25 Mcg Ellipta INHALATION 1 puff DAILYRT NATASHA Administration Furosemide 20 mg 08/04/24 09:00 Furosemide Inj 40 Mg/4 Ml Vial IV PUSH DAILY NATASHA Gabapentin 100 mg 07/24/24 19:00 08/03/24 09:10 Gabapentin 100 Mg Capsule PO 100 mg BID NATASHA Administration Glucagon 1 mg 07/25/24 04:38 Glucagon For Inj 1 Mg Vial IM PRN PRN Hypoglycemia Protocol Glucose 15 gm 07/25/24 04:38 Glucose Oral Gel 15 Gm Of Glucse In 37.5 Gm Tube PO PRN PRN Hypoglycemia Protocol Guaifenesin 400 mg 07/27/24 09:13 Guaifenesin 200 Mg/10 Ml Udc PO Q8HR PRN Cough Heparin Sodium (Beef Lung) 50 units 07/26/24 09:00 08/03/24 09:11 Heparin Flush 50 Units/5 Ml Syringe IV PUSH 50 units QAM NATASHA Administration Heparin Sodium (Beef Lung) 50 units 07/25/24 18:45 07/28/24 22:24 Heparin Flush 50 Units/5 Ml Syringe IV PUSH 50 units PRN PRN Administration after intermittent infusion Heparin Sodium (Beef Lung) 50 units 07/25/24 18:45 07/29/24 14:16 Heparin Flush 50 Units/5 Ml Syringe IV PUSH 50 units PRN PRN Administration after blood draws Heparin Sodium (Porcine) 500 units 07/25/24 18:45 Heparin Sodium Lock Flush 500 Units/5 Ml Syringe IV PUSH PRN PRN see comments below Dextrose 1,000 mls @ 100 mls/hr 07/25/24 04:38 Dextrose 5% 1,000 Ml IVPB PRN PRN Hypoglycemia Protocol Levothyroxine Sodium 44 mcg 07/25/24 06:30 08/03/24 05:10 Levothyroxine Sodium 44 Mcg Tablet PO 44 mcg DAILY@0630 NATASHA Administration Metoprolol Succinate 12.5 mg 07/26/24 21:15 08/02/24 20:34 Metoprolol Succinate Ext Rel 12.5 Mg Tabcr PO 12.5 mg QHS NATASHA Administration Polyethylene Glycol 17 gm 08/01/24 09:47 Polyethylene Glycol 3350 17 Gm Powd.Pack PO QAM PRN Constipation Pravastatin Sodium 40 mg 07/25/24 09:00 08/03/24 09:10 Pravastatin Sodium 20 Mg Tablet BY MOUTH 40 mg DAILY NATASHA Administration Promethazine HCl 12.5 mg 07/24/24 15:42 Promethazine Hcl 25 Mg/Ml Ampul IV PUSH Q6H PRN Nausea Sodium Chloride 10 ml 07/25/24 22:00 08/03/24 05:10 Central Line Flush IV PUSH 10 ml Q8HR NATASHA Administration Spironolactone 25 mg 07/29/24 21:00 08/02/24 20:34 Spironolactone 25 Mg Tablet PO 25 mg Q48H NATASHA Administration Tamsulosin HCl 0.4 mg 07/30/24 21:00 08/02/24 20:34 Tamsulosin Hcl 0.4 Mg Capsule PO 0.4 mg HS NATASHA Administration Radiology Results: ITS Impressions Chest X-Ray 07/25/24 23:14 IMPRESSION: No focal infiltrate or effusion. Stable volume loss within the left hemithorax with left apical scarring, unch anged. Chest CT 07/27/24 10:22 IMPRESSION: 1. Severe emphysema with several new pulmonary nodules in the right upper and lower lobes measuring up to 1 cm which are most likely infectious/inflammatory in etiology but would recommend 3 month follow-up low-dose noncontrast chest CT for further evaluation. 2. 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 3. Small right pleural effusion. Labs Labs: Laboratory Results - last 24 hr 08/03/24 05:35 WBC 18.4 H RBC 5.01 Hgb 9.7 L Hct 33.1 L MCV 66.1 L MCH 19.4 L MCHC 29.3 L RDW 20.7 H Plt Count 276 MPV TNP Immature Gran % (Auto) 0.8 H Neut % (Auto) 88.1 H Lymph % (Auto) 5.2 L Ness % (Auto) 5.4 Eos % (Auto) 0.4 Baso % (Auto) 0.1 L Lymph # (Auto) 0.96 Ness # (Auto) 1.0 H Eos # (Auto) 0.1 Baso # (Auto) 0.0 Abs Immat Gran (auto) 0.14 H Absolute Neuts (auto) 16.2 H Absolute Nucleated RBC 0.000 Band Neutrophils % Not Reportable Nucleated RBC % 0.0 Platelet Estimate Adequate % Immature Plt Fraction 4.8 Hypochromasia 2+ Anisocytosis 1+ Target Cells 1+ Ovalocytes 1+ Schistocytes None seen Sodium 133 L Potassium 4.3 Chloride 102 Carbon Dioxide 30 Anion Gap 1 L BUN 30 H Creatinine 1.20 Estim Creat Clear Calc 39 Estimated GFR 57 L Glucose 82 Calcium 8.5 Magnesium 1.9 Total Bilirubin 0.3 AST 25 ALT 23 Alkaline Phosphatase 34 L Total Protein 5.2 L Albumin 2.6 L Quality VTE Prophylaxis VTE prophylaxis: mechanical ordered and pharmacologic ordered
[2024-08-03] MEDS: METOPROLOL SUCCINATE EXT REL 12.5 MG TABCR PO (20:35)
[2024-08-03] MEDS: TAMSULOSIN HCL 0.4 MG CAPSULE PO (20:36)
[2024-08-04] VITALS (7 sets, daily range): BP systolic 101–144; BP diastolic 40–57; PULSE 63–80; RESP 16–18; TEMP 36.4–36.9; O2SAT 94–98
[2024-08-04] MEDS: CENTRAL LINE FLUSH 10 ML IV PUSH ×3 (06:02→21:08)
[2024-08-04] MEDS: LEVOTHYROXINE SODIUM PO (06:02)
[2024-08-04] MEDS: FLUTICASONE/UMECLIDIN/VILANTER 100-62.5-25 MCG ELLIPTA 1 PUFF INHALATION (08:44)
[2024-08-04] MEDS: DOCUSATE SODIUM 100 MG CAPSULE PO (08:58)
[2024-08-04] MEDS: DUTASTERIDE 0.5 MG CAPSULE PO (08:58)
[2024-08-04] MEDS: GABAPENTIN 100 MG CAPSULE PO ×2 (08:58→17:12)
[2024-08-04] MEDS: FINASTERIDE 5 MG TABLET PO (08:58)
[2024-08-04] MEDS: FLECAINIDE ACETATE 100 MG TABLET PO ×2 (08:58→21:06)
[2024-08-04] MEDS: EMPAGLIFLOZIN 25 MG TABLET BY MOUTH (08:58)
[2024-08-04] MEDS: PRAVASTATIN SODIUM 20 MG TABLET 40 MG BY MOUTH (08:58)
[2024-08-04] MEDS: APIXABAN 5 MG TABLET BY MOUTH ×2 (09:01→17:12)
--- NOTE | 2024-08-04 11:33 | P.PNIM_ITS ---
Progress Note: A&P Assessment and Plan (1) COPD exacerbation: Code(s): J44.1 - Chronic obstructive pulmonary disease with (acute) exacerbation Status: Acute Assessment and Plan: S/p Rocephin Completed antibiotics (levaquin) DuoNeb q.6 dc steroids Guaifenesin Incentive spirometer Chest x-ray with chronic interstitial change with left-sided volume loss unchanged from prior without focal infiltrate or effusion. ct reviewed earlier on admission showed pneumonia pulmonology happy with progress awaiting placement (2) Atrial fibrillation with RVR: Code(s): I48.91 - Unspecified atrial fibrillation Status: Acute Assessment and Plan: Cardio consult noted. S/p Amiodarone on Metoprolol and Eliquis on oral digoxin (3) Heart failure with preserved ejection fraction: Qualifiers: Heart failure chronicity: unspecified Qualified Code(s): I50.30 - Unspecified diastolic (congestive) heart failure Code(s): I50.30 - Unspecified diastolic (congestive) heart failure Status: Acute Assessment and Plan: GLP per cards and Spironolactone (4) Hyperlipidemia: Qualifiers: Hyperlipidemia type: mixed hyperlipidemia Qualified Code(s): E78.2 - Mixed hyperlipidemia Code(s): E78.5 - Hyperlipidemia, unspecified Status: Acute Assessment and Plan: continue statin (5) Hypothyroidism (acquired): Code(s): E03.9 - Hypothyroidism, unspecified Status: Acute Assessment and Plan: continue synthroid (6) BPH (benign prostatic hyperplasia): Qualifiers: Lower urinary tract symptom presence: symptoms present Lower urinary tract symptom detail: unspecified Qualified Code(s): N40.1 - Benign prostatic hyperplasia with lower urinary tract symptoms Code(s): N40.0 - Benign prostatic hyperplasia without lower urinary tract symptoms Status: Acute Assessment and Plan: Continue home meds Plan Hypoxic respiratory failure resolving Likely from Pneumonia and COPD completed antibiotics on [address] chest shows Pneumonia monitor AF Elevated troponin likely secondary to AF Continue digoxin metoprolol and Eliquis Cardiology on board Anemia: Recent EGD and colonoscopy negative Iron deficiency sp venofer x3 days Hb 9.7 Hypoglycemia: encouraged to eat more DVT prophylaxis on Eliquis Awaiting placement Subjective Date/time seen: 08/04/24 11:33 Interval history: Comfortable at bedside awaiting placement Review of Systems Review of Systems: mild wheezes in lungs no cough or fever Exam Narrative: General: alert and oriented x3 HEENT: normocephalic, atraumatic. Mucous membranes moist. Respiratory: clear to auscultation Cardiovascular: Regular rate and rhythm, normal S1-S2 upon ascultation. sinus rhythm Abdomen: Soft, round, no pulsatile masses, nondistended and nontender. No rebound, no guarding. Extremities: No cyanosis, clubbing, or edema present. Pulses are palpable 2/2. Active ROM to all four extremities. Neuro: Alert and orientated x 4. PERRLA. Cranial nerves 2-12 intact without focal deficit. Skin: Warm, dry, and intact, without rash, erythema, or lesion. Psych: pleasant, cooperative,normal affect Objective Data Vital Signs Vital Signs: Vital Signs - 24 hr 08/03/24 14:00 08/03/24 20:00 08/03/24 20:06 Temperature 98 F 97.7 F Pulse Rate 73 77 Respiratory Rate 18 18 Blood Pressure 104/45 L 104/45 L Pulse Oximetry 100 96 Oxygen Delivery Room Air 08/03/24 20:35 08/03/24 20:36 08/04/24 06:00 Temperature 97.6 F Pulse Rate 77 77 63 Respiratory Rate 16 Blood Pressure 101/40 L Pulse Oximetry 94 Oxygen Delivery 08/04/24 08:58 08/04/24 10:09 Temperature Pulse Rate 66 76 Respiratory Rate 16 Blood Pressure Pulse Oximetry 95 Oxygen Delivery Room Air Intake/Output Intake/Output: Intake & Output 08/01/24 08/02/24 08/03/24 08/04/24 23:59 23:59 23:59 23:59 Intake Total 5131 612 1533 200 Output Total 2024 1500 1200 1100 Balance -455 -710 0 -900 Meds/Results Medications: Active Medications Generic Name Dose Route Start Last Admin Trade Name Freq PRN Reason Stop Dose Admin Acetaminophen 650 mg 07/24/24 15:42 Acetaminophen 325 Mg Tablet PO Q4H PRN Mild Pain (1-3) or Fever Hydrocodone Bitart/Acetaminophen 1 tab 07/24/24 15:42 Hydrocodone/Acetaminophen (*Crx) 5-325 Mg Tablet PO Q4H PRN Pain Rated 4-6 Apixaban 5 mg 07/25/24 09:00 08/04/24 09:01 Apixaban 5 Mg Tablet BY MOUTH 5 mg BID NATASHA Administration Dextrose 12.5 gm 07/25/24 04:38 07/25/24 04:57 Dextrose 50% 25 Gm/50 Ml Syringe IV PUSH 12.5 gm PRN PRN Administration Hypoglycemia Protocol Docusate Sodium 100 mg 07/25/24 09:00 08/04/24 08:58 Docusate Sodium 100 Mg Capsule PO 100 mg DAILY NATASHA Administration Dutasteride 0.5 mg 07/25/24 09:00 08/04/24 08:58 Dutasteride 0.5 Mg Capsule PO 0.5 mg DAILY NATASHA Administration Empagliflozin 25 mg 07/25/24 09:00 08/04/24 08:58 Empagliflozin 25 Mg Tablet BY MOUTH 25 mg DAILY NATASHA Administration Finasteride 5 mg 07/25/24 09:00 08/04/24 08:58 Finasteride 5 Mg Tablet PO 5 mg DAILY NATASHA Administration Flecainide Acetate 100 mg 07/27/24 21:00 08/04/24 08:58 Flecainide Acetate 100 Mg Tablet PO 100 mg Q12HR NATASHA Administration Fluticasone/Umeclidinium/Vilanterol 1 puff 07/29/24 12:10 08/04/24 08:44 Fluticasone/Umeclidin/Vilanter 100-62.5-25 Mcg Ellipta INHALATION 1 puff DAILYRT NATASHA Administration Furosemide 20 mg 08/04/24 09:00 08/04/24 09:11 Furosemide Inj 40 Mg/4 Ml Vial IV PUSH Not Given DAILY NATASHA Gabapentin 100 mg 07/24/24 19:00 08/04/24 08:58 Gabapentin 100 Mg Capsule PO 100 mg BID NATASHA Administration Glucagon 1 mg 07/25/24 04:38 Glucagon For Inj 1 Mg Vial IM PRN PRN Hypoglycemia Protocol Glucose 15 gm 07/25/24 04:38 Glucose Oral Gel 15 Gm Of Glucse In 37.5 Gm Tube PO PRN PRN Hypoglycemia Protocol Guaifenesin 400 mg 07/27/24 09:13 Guaifenesin 200 Mg/10 Ml Udc PO Q8HR PRN Cough Heparin Sodium (Beef Lung) 50 units 07/26/24 09:00 08/04/24 09:00 Heparin Flush 50 Units/5 Ml Syringe IV PUSH 50 units QAM NATASHA Administration Heparin Sodium (Beef Lung) 50 units 07/25/24 18:45 07/28/24 22:24 Heparin Flush 50 Units/5 Ml Syringe IV PUSH 50 units PRN PRN Administration after intermittent infusion Heparin Sodium (Beef Lung) 50 units 07/25/24 18:45 07/29/24 14:16 Heparin Flush 50 Units/5 Ml Syringe IV PUSH 50 units PRN PRN Administration after blood draws Heparin Sodium (Porcine) 500 units 07/25/24 18:45 Heparin Sodium Lock Flush 500 Units/5 Ml Syringe IV PUSH PRN PRN see comments below Dextrose 1,000 mls @ 100 mls/hr 07/25/24 04:38 Dextrose 5% 1,000 Ml IVPB PRN PRN Hypoglycemia Protocol Levothyroxine Sodium 44 mcg 07/25/24 06:30 08/04/24 06:02 Levothyroxine Sodium 44 Mcg Tablet PO 44 mcg DAILY@0630 NATASHA Administration Metoprolol Succinate 12.5 mg 07/26/24 21:15 08/03/24 20:35 Metoprolol Succinate Ext Rel 12.5 Mg Tabcr PO 12.5 mg QHS NATASHA Administration Miscellaneous Information 1 each 08/04/24 00:01 Please Renew Ceftriaxone. Per [employer] Procedure, It Will Discontinue If Not Renewed XX 09/03/24 00:00 CLARIFY NATASHA Polyethylene Glycol 17 gm 08/01/24 09:47 Polyethylene Glycol 3350 17 Gm Powd.Pack PO QAM PRN Constipation Pravastatin Sodium 40 mg 07/25/24 09:00 08/04/24 08:58 Pravastatin Sodium 20 Mg Tablet BY MOUTH 40 mg DAILY NATASHA Administration Promethazine HCl 12.5 mg 07/24/24 15:42 Promethazine Hcl 25 Mg/Ml Ampul IV PUSH Q6H PRN Nausea Sodium Chloride 10 ml 07/25/24 22:00 08/04/24 06:02 Central Line Flush IV PUSH 10 ml Q8HR NATASHA Administration Spironolactone 25 mg 07/29/24 21:00 08/02/24 20:34 Spironolactone 25 Mg Tablet PO 25 mg Q48H NATASHA Administration Tamsulosin HCl 0.4 mg 07/30/24 21:00 08/03/24 20:36 Tamsulosin Hcl 0.4 Mg Capsule PO 0.4 mg HS NATASHA Administration Radiology Results: ITS Impressions Chest X-Ray 07/25/24 23:14 IMPRESSION: No focal infiltrate or effusion. Stable volume loss within the left hemithorax with left apical scarring, unchanged. Chest CT 07/27/24 10:22 IMPRESSION: 1. Severe emphysema with several new pulmonary nodules in the right upper and lower lobes measuring up to 1 cm which are most likely infectious/inflammatory in etiology but would recommend 3 month follow-up low-dose noncontrast chest CT for further evaluation. 2. 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 3. Small right pleural effusion. Quality VTE Prophylaxis VTE prophylaxis: mechanical ordered and pharmacologic ordered
[2024-08-04 13:49] LABS: Hematocrit 35.5 % (42.0-52.0); Hemoglobin 10.2 g/dL (14.0-18.0); Immature Granulocyte Percent A 0.6 % (0-0.5); Immature Platelet Fraction Pct 7.0 % (0.9-11.2); Lymphocytes Absolute Auto 0.84 K/mm3 (0.9-3.2); Mean Corpuscular HGB Conc 28.7 g/dl (32-36); Mean Corpuscular Hemoglobin 19.4 pg (26-34); Mean Corpuscular Volume 67.4 fl (80-100); Nucleated Red Blood Cells Absolute Auto 0.000 K/mm3 (0.0-0.012); Nucleated Red Blood Cells Perc 0.0 % (0.0-0.2); Platelet Count Result 282 k/mm3 (150-375); Red Blood Count 5.27 M/mm3 (4.6-6.20); White Blood Count 19.7 K/mm3 (4.5-10.0)
[2024-08-04 13:59] LABS: Alanine Aminotransferase 26 U/L (6-50); Albumin Level 3.0 g/dL (3.5-5.1); Alkaline Phosphatase 41 U/L (38-126); Anion Gap 5 mmol/L (4-12); Aspartate Amino Transferase 28 U/L (17-59); Bilirubin,Total 0.3 mg/dL (0.2-1.3); Blood Urea Nitrogen 29 mg/dL (9-20); Calcium 8.8 mg/dL (8.4-10.2); Carbon Dioxide 30 mmol/L (22-30); Chloride 99 mmol/L (98-107); Estimated CRCL calculation 36 ml/min; Estimated Glomerular Filt Rate 51; Glucose 120 mg/dL (65-110); Magnesium 2.0 mg/dL (1.6-2.3); Potassium 4.6 mmol/L (3.4-5.0); Sodium 134 mmol/L (137-145); Total Protein 5.8 g/dL (6.3-8.2)
[2024-08-04 14:10] LABS: Schistocytes None Seen
[2024-08-04 14:11] LABS: Hypochromasia 2+; Microcytosis 2+ (NORMAL); Ovalocytes 2+; Target Cells 1+
[2024-08-04] MEDS: SPIRONOLACTONE 25 MG TABLET PO (21:05)
[2024-08-04] MEDS: METOPROLOL SUCCINATE EXT REL 12.5 MG TABCR PO (21:06)
[2024-08-04] MEDS: TAMSULOSIN HCL 0.4 MG CAPSULE PO (21:06)
[2024-08-05] VITALS (9 sets, daily range): BP systolic 93–107; BP diastolic 44–53; PULSE 64–79; RESP 12–20; TEMP 36.3–37.1; O2SAT 95–100
[2024-08-05] MEDS: CENTRAL LINE FLUSH 10 ML IV PUSH ×3 (05:47→21:42)
[2024-08-05] MEDS: LEVOTHYROXINE SODIUM PO (05:47)
[2024-08-05 06:04] LABS: Hematocrit 31.8 % (42.0-52.0); Hemoglobin 9.2 g/dL (14.0-18.0); Immature Granulocyte Percent A 0.8 % (0-0.5); Immature Platelet Fraction Pct 6.2 % (0.9-11.2); Lymphocytes Absolute Auto 0.75 K/mm3 (0.9-3.2); Mean Corpuscular HGB Conc 28.9 g/dl (32-36); Mean Corpuscular Hemoglobin 19.7 pg (26-34); Mean Corpuscular Volume 68.2 fl (80-100); Nucleated Red Blood Cells Absolute Auto 0.000 K/mm3 (0.0-0.012); Nucleated Red Blood Cells Perc 0.0 % (0.0-0.2); Platelet Count Result 234 k/mm3 (150-375); Red Blood Count 4.66 M/mm3 (4.6-6.20); White Blood Count 13.2 K/mm3 (4.5-10.0)
[2024-08-05 06:10] LABS: Alanine Aminotransferase 24 U/L (6-50); Albumin Level 2.5 g/dL (3.5-5.1); Alkaline Phosphatase 38 U/L (38-126); Anion Gap 2 mmol/L (4-12); Aspartate Amino Transferase 26 U/L (17-59); Bilirubin,Total 0.4 mg/dL (0.2-1.3); Blood Urea Nitrogen 27 mg/dL (9-20); Calcium 8.3 mg/dL (8.4-10.2); Carbon Dioxide 30 mmol/L (22-30); Chloride 101 mmol/L (98-107); Estimated CRCL calculation 38 ml/min; Estimated Glomerular Filt Rate 54; Glucose 72 mg/dL (65-110); Magnesium 2.0 mg/dL (1.6-2.3); Potassium 4.5 mmol/L (3.4-5.0); Sodium 133 mmol/L (137-145); Total Protein 5.0 g/dL (6.3-8.2)
[2024-08-05 07:07] LABS: Anisocytosis 3+; Hypochromasia 1+; Ovalocytes 2+; Poikilocytosis 2+; Schistocytes None Seen; Target Cells 1+
[2024-08-05] MEDS: FLUTICASONE/UMECLIDIN/VILANTER 100-62.5-25 MCG ELLIPTA 1 PUFF INHALATION (08:13)
[2024-08-05] MEDS: DOCUSATE SODIUM 100 MG CAPSULE PO (09:09)
[2024-08-05] MEDS: FINASTERIDE 5 MG TABLET PO (09:09)
[2024-08-05] MEDS: EMPAGLIFLOZIN 25 MG TABLET BY MOUTH (09:09)
[2024-08-05] MEDS: APIXABAN 5 MG TABLET BY MOUTH ×2 (09:09→17:04)
[2024-08-05] MEDS: GABAPENTIN 100 MG CAPSULE PO ×2 (09:09→17:04)
[2024-08-05] MEDS: DUTASTERIDE 0.5 MG CAPSULE PO (09:09)
[2024-08-05] MEDS: FLECAINIDE ACETATE 100 MG TABLET PO ×2 (09:09→21:42)
[2024-08-05] MEDS: FUROSEMIDE INJ 40 MG/4 ML VIAL 20 MG IV PUSH (09:12)
[2024-08-05] MEDS: PRAVASTATIN SODIUM 20 MG TABLET 40 MG BY MOUTH (09:13)
--- NOTE | 2024-08-05 14:33 | P.PNIM_ITS ---
Progress Note: A&P Assessment and Plan (1) COPD exacerbation: Code(s): J44.1 - Chronic obstructive pulmonary disease with (acute) exacerbation Status: Acute Assessment and Plan: S/p Rocephin Completed antibiotics (levaquin) DuoNeb q.6 dc steroids Guaifenesin Incentive spirometer Chest x-ray with chronic interstitial change with left-sided volume loss unchanged from prior without focal infiltrate or effusion. ct reviewed earlier on admission showed pneumonia pulmonology happy with progress awaiting placement (2) Atrial fibrillation with RVR: Code(s): I48.91 - Unspecified atrial fibrillation Status: Acute Assessment and Plan: Cardio consult noted. S/p Amiodarone on Metoprolol and Eliquis on oral digoxin (3) Heart failure with preserved ejection fraction: Qualifiers: Heart failure chronicity: unspecified Qualified Code(s): I50.30 - Unspecified diastolic (congestive) heart failure Code(s): I50.30 - Unspecified diastolic (congestive) heart failure Status: Acute Assessment and Plan: GLP per cards and Spironolactone (4) Hyperlipidemia: Qualifiers: Hyperlipidemia type: mixed hyperlipidemia Qualified Code(s): E78.2 - Mixed hyperlipidemia Code(s): E78.5 - Hyperlipidemia, unspecified Status: Acute Assessment and Plan: continue statin (5) Hypothyroidism (acquired): Code(s): E03.9 - Hypothyroidism, unspecified Status: Acute Assessment and Plan: continue synthroid (6) BPH (benign prostatic hyperplasia): Qualifiers: Lower urinary tract symptom presence: symptoms present Lower urinary tract symptom detail: unspecified Qualified Code(s): N40.1 - Benign prostatic hyperplasia with lower urinary tract symptoms Code(s): N40.0 - Benign prostatic hyperplasia without lower urinary tract symptoms Status: Acute Assessment and Plan: Continue home meds Plan Hypoxic respiratory failure resolving Likely from Pneumonia and COPD completed antibiotics on [address] chest shows Pneumonia monitor AF Elevated troponin likely secondary to AF Continue digoxin metoprolol and Eliquis Cardiology on board Anemia: Recent EGD and colonoscopy negative Iron deficiency sp venofer x3 days Hb 9.2 Hypoglycemia: resolved DVT prophylaxis on Eliquis Awaiting placement Subjective Date/time seen: 08/05/24 14:33 Interval history: Comfortable at bedside awaiting placement Review of Systems Review of Systems: mild wheezes in lungs no cough or fever Exam Narrative: General: alert and oriented x3 HEENT: normocephalic, atraumatic. Mucous membranes moist. Respiratory: clear to auscultation Cardiovascular: Regular rate and rhythm, normal S1-S2 upon ascultation. sinus rhythm Abdomen: Soft, round, no pulsatile masses, nondistended and nontender. No rebound, no guarding. Extremities: No cyanosis, clubbing, or edema present. Pulses are palpable 2/2. Active ROM to all four extremities. Neuro: Alert and orientated x 4. PERRLA. Cranial nerves 2-12 intact without focal deficit. Skin: Warm, dry, and intact, without rash, erythema, or lesion. Psych: pleasant, cooperative,normal affect Objective Data Vital Signs Vital Signs: Vital Signs - 24 hr 08/04/24 20:00 08/04/24 21:06 08/04/24 21:06 Temperature Pulse Rate 80 80 Respiratory Rate Blood Pressure Pulse Oximetry Oxygen Delivery Room Air Oxygen Flow Rate Fraction of Inspired Oxygen 08/04/24 22:13 08/05/24 06:00 08/05/24 08:15 Temperature 98.4 F 97.3 F L Pulse Rate 80 64 76 Respiratory Rate 18 18 14 Blood Pressure 144/50 H 101/48 L Pulse Oximetry 98 97 Oxygen Delivery Oxygen Flow Rate Fraction of Inspired Oxygen 08/05/24 09:09 08/05/24 09:09 Temperature Pulse Rate 69 Respiratory Rate Blood Pressure Pulse Oximetry 98 Oxygen Delivery Nasal Cannula Oxygen Flow Rate 1 Fraction of Inspired Oxygen Intake/Output Intake/Output: Intake & Output 08/02/24 08/03/24 08/04/24 08/05/24 23:59 23:59 23:59 23:59 Intake Total 790 1200 1160 697 Output Total 1500 1200 1700 1300 Balance -710 0 -586 -603 Meds/Results Medications: Active Medications Generic Name Dose Route Start Last Admin Trade Name Freq PRN Reason Stop Dose Admin Acetaminophen 650 mg 07/24/24 15:42 Acetaminophen 325 Mg Tablet PO Q4H PRN Mild Pain (1-3) or Fever Hydrocodone Bitart/Acetaminophen 1 tab 07/24/24 15:42 Hydrocodone/Acetaminophen (*Crx) 5-325 Mg Tablet PO Q4H PRN Pain Rated 4-6 Apixaban 5 mg 07/25/24 09:00 08/05/24 09:09 Apixaban 5 Mg Tablet BY MOUTH 5 mg BID NATASHA Administration Dextrose 12.5 gm 07/25/24 04:38 07/25/24 04:57 Dextrose 50% 25 Gm/50 Ml Syringe IV PUSH 12.5 gm PRN PRN Administration Hypoglycemia Protocol Docusate Sodium 100 mg 07/25/24 09:00 08/05/24 09:09 Docusate Sodium 100 Mg Capsule PO 100 mg DAILY NATASHA Administration Dutasteride 0.5 mg 07/25/24 09:00 08/05/24 09:09 Dutasteride 0.5 Mg Capsule PO 0.5 mg DAILY NATASHA Administration Empagliflozin 25 mg 07/25/24 09:00 08/05/24 09:09 Empagliflozin 25 Mg Tablet BY MOUTH 25 mg DAILY NATASHA Administration Finasteride 5 mg 07/25/24 09:00 08/05/24 09:09 Finasteride 5 Mg Tablet PO 5 mg DAILY NATASHA Administration Flecainide Acetate 100 mg 07/27/24 21:00 08/05/24 09:09 Flecainide Acetate 100 Mg Tablet PO 100 mg Q12HR NATASHA Administration Fluticasone/Umeclidinium/Vilanterol 1 puff 07/29/24 12:10 08/05/24 08:13 Fluticasone/Umeclidin/Vilanter 100-62.5-25 Mcg Ellipta INHALATION 1 puff DAILYRT NATASHA Administration Furosemide 20 mg 08/04/24 09:00 08/05/24 09:12 Furosemide Inj 40 Mg/4 Ml Vial IV PUSH 20 mg DAILY NATASHA Administration Gabapentin 100 mg 07/24/24 19:00 08/05/24 09:09 Gabapentin 100 Mg Capsule PO 100 mg BID NATASHA Administration Glucagon 1 mg 07/25/24 04:38 Glucagon For Inj 1 Mg Vial IM PRN PRN Hypoglycemia Protocol Glucose 15 gm 07/25/24 04:38 Glucose Oral Gel 15 Gm Of Glucse In 37.5 Gm Tube PO PRN PRN Hypoglycemia Protocol Guaifenesin 400 mg 07/27/24 09:13 Guaifenesin 200 Mg/10 Ml Udc PO Q8HR PRN Cough Heparin Sodium (Beef Lung) 50 units 07/26/24 09:00 08/05/24 09:09 Heparin Flush 50 Units/5 Ml Syringe IV PUSH 50 units QAM NATASHA Administration Heparin Sodium (Beef Lung) 50 units 07/25/24 18:45 07/28/24 22:24 Heparin Flush 50 Units/5 Ml Syringe IV PUSH 50 units PRN PRN Administration after intermittent infusion Heparin Sodium (Beef Lung) 50 units 07/25/24 18:45 07/29/24 14:16 Heparin Flush 50 Units/5 Ml Syringe IV PUSH 50 units PRN PRN Administration after blood draws Heparin Sodium (Porcine) 500 units 07/25/24 18:45 Heparin Sodium Lock Flush 500 Units/5 Ml Syringe IV PUSH PRN PRN see comments below Dextrose 1,000 mls @ 100 mls/hr 07/25/24 04:38 Dextrose 5% 1,000 Ml IVPB PRN PRN Hypoglycemia Protocol Levothyroxine Sodium 44 mcg 07/25/24 06:30 08/05/24 05:47 Levothyroxine Sodium 44 Mcg Tablet PO 44 mcg DAILY@0630 NATASHA Administration Metoprolol Succinate 12.5 mg 07/26/24 21:15 08/04/24 21:06 Metoprolol Succinate Ext Rel 12.5 Mg Tabcr PO 12.5 mg QHS NATASHA Administration Polyethylene Glycol 17 gm 08/01/24 09:47 Polyethylene Glycol 3350 17 Gm Powd.Pack PO QAM PRN Constipation Pravastatin Sodium 40 mg 07/25/24 09:00 08/05/24 09:13 Pravastatin Sodium 20 Mg Tablet BY MOUTH 40 mg DAILY NATASHA Administration Promethazine HCl 12.5 mg 07/24/24 15:42 Promethazine Hcl 25 Mg/Ml Ampul IV PUSH Q6H PRN Nausea Sodium Chloride 10 ml 07/25/24 22:00 08/05/24 05:47 Central Line Flush IV PUSH 10 ml Q8HR NATASHA Administration Spironolactone 25 mg 07/29/24 21:00 08/04/24 21:05 Spironolactone 25 Mg Tablet PO 25 mg Q48H NATASHA Administration Tamsulosin HCl 0.4 mg 07/30/24 21:00 08/04/24 21:06 Tamsulosin Hcl 0.4 Mg Capsule PO 0.4 mg HS NATASHA Administration Radiology Results: ITS Impressions Chest X-Ray 07/25/24 23:14 IMPRESSION: No focal infiltrate or effusion. Stable volume loss within the left hemithorax with left apical scarring, unchanged. Chest CT 07/27/24 10:22 IMPRESSION: 1. Severe emphysema with several new pulmonary nodules in the right upper and lower lobes measuring up to 1 cm which are most likely infectious/inflammatory in etiology but would recommend 3 month follow-up low-dose noncontrast chest CT for further evaluation. 2. Status post left upper lobectomy with paramediastinal scarring in the bilater al upper lobes with distribution suggesting sequela prior radiation treatment. 3. Small right pleural effusion. Labs Labs: Laboratory Results - last 24 hr 08/05/24 05:42 WBC 13.2 H RBC 4.66 Hgb 9.2 L Hct 31.8 L MCV 68.2 L MCH 19.7 L MCHC 28.9 L RDW 22.2 H Plt Count 234 MPV TNP Immature Gran % (Auto) 0.8 H Neut % (Auto) 84.5 H Lymph % (Auto) 5.7 L [place] % (Auto) 8.3 Eos % (Auto) 0.5 Baso % (Auto) 0.2 Lymph # (Auto) 0.75 L [place] # (Auto) 1.1 H Eos # (Auto) 0.1 Baso # (Auto) 0.0 Abs Immat Gran (auto) 0.11 H Absolute Neuts (auto) 11.2 H Absolute Nucleated RBC 0.000 Band Neutrophils % Not Reportable Nucleated RBC % 0.0 Platelet Estimate Adequate % Immature Plt Fraction 6.2 Hypochromasia 1+ Poikilocytosis 2+ Anisocytosis 3+ Target Cells 1+ Ovalocytes 2+ Schistocytes None seen Sodium 133 L Potassium 4.5 Chloride 101 Carbon Dioxide 30 Anion Gap 2 L BUN 27 H Creatinine 1.26 Estim Creat Clear Calc 38 Estimated GFR 54 L Glucose 72 Calcium 8.3 L Magnesium 2.0 Total Bilirubin 0.4 AST 26 ALT 24 Alkaline Phosphatase 38 Total Protein 5.0 L Albumin 2.5 L Quality VTE Prophylaxis VTE prophylaxis: mechanical ordered and pharmacologic ordered
[2024-08-05] MEDS: METOPROLOL SUCCINATE EXT REL 12.5 MG TABCR PO (21:42)
[2024-08-05] MEDS: TAMSULOSIN HCL 0.4 MG CAPSULE PO (21:42)
[2024-08-06] MEDS: LEVOTHYROXINE SODIUM PO (05:49)
[2024-08-06] MEDS: CENTRAL LINE FLUSH 10 ML IV PUSH ×2 (05:50→13:13)
[2024-08-06 06:00] VITALS: BP 95/50; PULSE 80; RESP 18; TEMP 36.5; O2SAT 100
[2024-08-06 06:09] LABS: Hematocrit 32.4 % (42.0-52.0); Hemoglobin 9.2 g/dL (14.0-18.0); Immature Granulocyte Percent A 0.4 % (0-0.5); Immature Platelet Fraction Pct 5.2 % (0.9-11.2); Lymphocytes Absolute Auto 0.76 K/mm3 (0.9-3.2); Mean Corpuscular HGB Conc 28.4 g/dl (32-36); Mean Corpuscular Hemoglobin 19.7 pg (26-34); Mean Corpuscular Volume 69.4 fl (80-100); Nucleated Red Blood Cells Absolute Auto 0.000 K/mm3 (0.0-0.012); Nucleated Red Blood Cells Perc 0.0 % (0.0-0.2); Platelet Count Result 236 k/mm3 (150-375); Red Blood Count 4.67 M/mm3 (4.6-6.20); White Blood Count 11.2 K/mm3 (4.5-10.0)
[2024-08-06 06:24] LABS: Anion Gap 1 mmol/L (4-12); Blood Urea Nitrogen 24 mg/dL (9-20); Carbon Dioxide 32 mmol/L (22-30); Chloride 100 mmol/L (98-107); Estimated CRCL calculation 39 ml/min; Estimated Glomerular Filt Rate 56; Glucose 69 mg/dL (65-110); Potassium 4.3 mmol/L (3.4-5.0); Sodium 133 mmol/L (137-145)
[2024-08-06 06:25] LABS: Alanine Aminotransferase 23 U/L (6-50); Albumin Level 2.6 g/dL (3.5-5.1); Alkaline Phosphatase 38 U/L (38-126); Aspartate Amino Transferase 27 U/L (17-59); Bilirubin,Total 0.3 mg/dL (0.2-1.3); Calcium 8.3 mg/dL (8.4-10.2); Magnesium 2.2 mg/dL (1.6-2.3); Total Protein 5.1 g/dL (6.3-8.2)
[2024-08-06 06:55] LABS: Anisocytosis 2+; Hypochromasia 1+
[2024-08-06 06:56] LABS: Ovalocytes 1+; Schistocytes Rare
[2024-08-06 08:15] VITALS: PULSE 68; RESP 20; O2SAT 98
[2024-08-06] MEDS: FLUTICASONE/UMECLIDIN/VILANTER 100-62.5-25 MCG ELLIPTA 1 PUFF INHALATION (08:15)
[2024-08-06 08:41] VITALS: O2SAT 94
[2024-08-06] MEDS: PRAVASTATIN SODIUM 20 MG TABLET 40 MG BY MOUTH (09:24)
[2024-08-06 09:25] VITALS: PULSE 68
[2024-08-06] MEDS: GABAPENTIN 100 MG CAPSULE PO (09:25)
[2024-08-06] MEDS: DUTASTERIDE 0.5 MG CAPSULE PO (09:25)
[2024-08-06] MEDS: FLECAINIDE ACETATE 100 MG TABLET PO (09:25)
[2024-08-06] MEDS: DOCUSATE SODIUM 100 MG CAPSULE PO (09:25)
[2024-08-06] MEDS: APIXABAN 5 MG TABLET BY MOUTH (09:25)
[2024-08-06] MEDS: EMPAGLIFLOZIN 25 MG TABLET BY MOUTH (09:25)
[2024-08-06] MEDS: FINASTERIDE 5 MG TABLET PO (09:25)
[2024-08-06 09:26] VITALS: RESP 20; O2SAT 91
[2024-08-06] MEDS: FUROSEMIDE INJ 40 MG/4 ML VIAL 20 MG IV PUSH (09:26)
--- NOTE | 2024-08-06 11:48 | P.DS_ITS ---
DS: Admitting Diagnosis Discharge Date 08/06/2024 Admitting Diagnosis COPD exacerbation Pneumonia Acute respiratory failure/distress DS: Discharge Diagnosis Discharge Diagnosis (1) COPD exacerbation: Code(s): J44.1 - Chronic obstructive pulmonary disease with (acute) exacerbation Status: Acute Assessment and Plan: S/p Rocephin Completed antibiotics (levaquin) on 08/04/24 DuoNeb q.6 dc steroids after completing course Guaifenesin prn Incentive spirometer to conitnue Chest x-ray with chronic interstitial change with left-sided volume loss unchanged from prior without focal infiltrate or effusion. ct reviewed earlier on admission showed pneumonia - resolved pulmonology happy with progress awaited placement for several days, accepted today to SNF (2) Atrial fibrillation with RVR: Code(s): I48.91 - Unspecified atrial fibrillation Status: Acute Assessment and Plan: Cardio consult noted. S/p Amiodarone gtt, did well. on Metoprolol and Eliquis on oral digoxin (3) Heart failure with preserved ejection fraction: Qualifiers: Heart failure chronicity: unspecified Qualified Code(s): I50.30 - Unspecified diastolic (congestive) heart failure Code(s): I50.30 - Unspecified diastolic (congestive) heart failure Status: Acute Assessment and Plan: GLP per cards Spironolactone (4) Hyperlipidemia: Qualifiers: Hyperlipidemia type: mixed hyperlipidemia Qualified Code(s): E78.2 - Mixed hyperlipidemia Code(s): E78.5 - Hyperlipidemia, unspecified Status: Acute Assessment and Plan: continue statin (5) Hypothyroidism (acquired): Code(s): E03.9 - Hypothyroidism, unspecified Status: Acute Assessment and Plan: continue synthroid (6) BPH (benign prostatic hyperplasia): Qualifiers: Lower urinary tract symptom detail: unspecified Lower urinary tract symptom presence: symptoms present Qualified Code(s): N40.1 - Benign prostatic hyperplasia with lower urinary tract symptoms Code(s): N40.0 - Benign prostatic hyperplasia without lower urinary tract symptoms Status: Acute Assessment and Plan: Continue home meds Plan Hypoxic respiratory failure resolving Likely from Pneumonia and COPD completed antibiotics on [address] chest shows Pneumonia monitor AF Elevated troponin likely secondary to AF Continue digoxin metoprolol and Eliquis Cardiology on board Anemia: Recent EGD and colonoscopy negative Iron deficiency sp venofer x3 days Hb 9.2 Hypoglycemia: resolved DVT prophylaxis on Eliquis Awaiting placement DS: Summary Hospital Course Hospital Course: 84-year-old male with past medical history of lung cancer, BPH, hypertension hyperlipidemia, hypothyroidism and COPD presents the hospital with shortness of breath. Patient states that he has had a cough for a while now. With increased sputum for the last 3 or 4 months. He states that he was doing a bowel prep over the weekend and was getting very short of breath when walking back and forth to the bathroom. He was afraid that due to the bowel prep and his cancer he was feeling ill. However he has not improved since then and presented to the hospital. In the ED his lab work shows leukocytosis at 18.9, anemia at 11.3, lactic acid 2.5 with repeat being 2.0, troponin 0.098, 0.102, 0.107, BNP of 7640, influenza a, B, RSV COVID negative. EKG shows sinus rhythm with frequent PVCs. Patient has atelectasis versus MRI on chest x-ray. Patient will be admitted for COPD exacerbation with pneumonia. Patient with a 51 pack year tobacco use, quit 2007, also exposed to secondhand smoke from both of his parents. CT scan of the chest from 04/05/2021 demonstrates severe apical greater than basilar predominant panlobular emphysema. Prior to admission he was not on any supplemental oxygen. He has dyspnea on exertion half a block and chronically produces phlegm at 2 to 3 times a day described as and yellow. He is maintained on Trelegy inhaler. Patient presents with worsening shortness of breath at rest and with activity, increased cough with no change in his baseline phlegm. He is treated for COPD exacerbation with Solu-Medrol, bronchodilators, ceftriaxone and azithromycin for possible pneumonia. Pulmonolgy was consulted. he is on 1 L nasal cannula saturations 100%. Patient has no wheezing and is tachycardic with initiation of amiodarone drip for a flutter with RVR. Continue prednisone 40 mg p.o. q.day, day 3 total systemic steroids. Given his tachyarrhythmias discontinued beta agonist at this time and try to manage him with muscarinic antagonists. I will discontinue his Trelegy and his DuoNebs and place him on ipratropium nebulizers q.4 hours. Added a Cornet flutter valve. Goal saturation 90-94%. Currently the patient is on 1 L with saturations 100%. The patient was being treated for a pneumonia with ceftriaxone started on 07/24/2024 He was given azithromycin on 07/24/2022. Pulmonology started levofloxacin 750 mg Q 48 hours given his creatinine clearance, today will be day [address] scan of the chest was reordered to assess for focal infiltrates. COVID influenza, RSV RT PCR assay negative. respiratory pathogen panel, urine for Legionella antigen, urine for pneumococcal antigen, and a serum mycoplasma IgM negative. patient had a tachy arrhythmia, Cardiology did see, amiodarone drip was stopped, patient when than continued on flecainide for his atrial flutter and observed via telemetry while he is in the hospital. He had been taking systemic anticoagulation with apixaban chronically. He will continue outpatient as well. BNP was 7640 on 07/24. Lasix had been held. Of note patient is on Lasix 10 mg a day at home. Recommend diuresis as tolerated by his cardiac and renal systems per radiological technologist and hospitalist team. Discussed with Dr. Marie, we will follow with you. 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 patient was started on Levaquin. 07/28/24 he is on 1 L/min, stable saturation, feeling better, heart rate controlled on oral flecainide per cardiology. WBC 11, lower, afebrile, normal respiratory rate. 07/29/24 White blood cell count 13.4, creatinine 1.17. BNP has improved from 8610 on 07/26/2024 to a value of 1590 today. Cardiology and pulmonary perspective patient is ready to be discharged on these pulmonary medicines Levofloxacin 750 mg p.o. Q 48 hours last dose on 08/01/2024, Trelegy 100-62.5-25 at 1 puff q.day, rescue albuterol inhaler 2 puffs q.4 hours p.r.n. shortness of breath or wheezing. Albuterol nebulizer 2.5 mg q.4 hours p.r.n. shortness of breath or wheezing, Oxygen at rest and with activity per home O2 assessment prior to being di scharged from his rehab setting. Currently he is on 1 L with saturations 97%. Patient desaturates when he tries to stay on room air. Patient remained in the hospital pending placement acceptance, patient was accepted today and approved by insurance, patient completed his antibiotic management. He continues to require 1 L of oxygen per nasal cannula ambulating. Labs are remained stable. He is still agreeable to discharge to shelter facility for continuing rehab. Patient was discharged today to shelter facility. Status at Discharge Functional status at discharge: uses cane/walker Overall status at discharge: patient is progressing back to baseline Time Spent with Patient Time attestation: Total time spent providing and/or coordinating discharge services: Time spent: Greater than 30 minutes Exam Narrative: General: alert and oriented x3 HEENT: normocephalic, atraumatic. Mucous membranes moist. Respiratory: clear to auscultation Cardiovascular: Regular rate and rhythm, normal S1-S2 upon ascultation. sinus rhythm Abdomen: Soft, round, no pulsatile masses, nondistended and nontender. No rebound, no guarding. Extremities: No cyanosis, clubbing, or edema present. Pulses are palpable 2/2. Active ROM to all four extremities. Neuro: Alert and orientated x 4. PERRLA. Cranial nerves 2-12 intact without focal deficit. Skin: Warm, dry, and intact, without rash, erythema, or lesion. Psych: pleasant, cooperative,normal affect DS: Data Data Completed and Pending Labs on day of discharge: Labs from last 24 hours 08/06/24 05:47 WBC 11.2 H RBC 4.67 Hgb 9.2 L Hct 32.4 L MCV 69.4 L MCH 19.7 L MCHC 28.4 L RDW 23.0 H Plt Count 236 MPV TNP Immature Gran % (Auto) 0.4 Neut % (Auto) 82.8 H Lymph % (Auto) 6.8 L Bullock % (Auto) 9.4 H Eos % (Auto) 0.4 Baso % (Auto) 0.2 Lymph # (Auto) 0.76 L Bullock # (Auto) 1.1 H Eos # (Auto) 0.0 Baso # (Auto) 0.0 Abs Immat Gran (auto) 0.05 H Absolute Neuts (auto) 9.3 H Absolute Nucleated RBC 0.000 Band Neutrophils % Not Reportable Nucleated RBC % 0.0 Platelet Estimate Adequate % Immature Plt Fraction 5.2 Hypochromasia 1+ Anisocytosis 2+ Ovalocytes 1+ Schistocytes Rare Sodium 133 L Potassium 4.3 Chloride 100 Carbon Dioxide 32 H Anion Gap 1 L BUN 24 H Creatinine 1.23 Estim Creat Clear Calc 39 Estimated GFR 56 L Glucose 69 Calcium 8.3 L Magnesium 2.2 Total Bilirubin 0.3 AST 27 ALT 23 Alkaline Phosphatase 38 Total Protein 5.1 L Albumin 2.6 L Discharge Plan Discharge Attending physician on discharge: Wilfrid Acosta Consulting providers: Brittani Parisi; Shawn East Discharging Clinician: Shahrzad Judge Anticipated Discharge Date/Time: 08/06/24 11:49 Patient Disposition: SNF Activity: may shower and as tolerated Diet: heart healthy Discharge Instructions: COntinue Oxygen at 1 liter per nasal canula at All times. continue home medications as ordered. Ambulate with Assist PT/OT eval and treat upon arrival Follow up with Primary MD in 1 week - notify upon arrival to facility for further orders. Follow up with Cardiology and Pulmonology in one week. Patient Instructions: Flecainide (By mouth), Apixaban (By mouth), Heart Failure (GEN), Help Prevent Suicide in Older Adults (GEN), Bleeding Disorders (GEN) Patient Language: Kittitian Stand Alone Forms: General Discharge Information, [facility] Discharge Follow-up/Referrals: Shawn Hoffman MD [Physician] - Call for Appointment Shon Willis MD [Primary Care Provider] - Shawn East MD [Physician] - Discharge Medications: Continued tamsulosin 0.4 mg capsule 0.4 mg PO DAILY dexamethasone 4 mg tablet 8 mg PO DAILY PRN (Reason: chemo) spironolactone 25 mg tablet 25 mg PO .QOD Patient Comments: To take qod. Due to BP 104/66. metoprolol succinate 25 mg tablet extended release 24 hr 12.5 mg PO DAILY lidocaine-prilocaine 2.5-2.5 % cream 1 applic TOPICAL ONCE PRN (Reason: for ramona cath during chemo) finasteride 5 mg tablet 5 mg PO DAILY gabapentin 100 mg capsule 100 mg PO Q12H dapagliflozin propanediol [Farxiga] 10 mg tablet 10 mg PO DAILY dutasteride 0.5 mg capsule 0.5 mg PO .daily acetaminophen [Tactinal] 325 mg tablet 325 mg PO Q6H PRN (Reason: pain) Eliquis 5 mg PO BID Patient Comments: HOLD FOR [address] Elizabeth last 07/21/24 cyanocobalamin (vitamin B-12) [Vitamin B-12] 1,000 mcg tablet 1,000 mcg PO DAILY folic acid 400 mcg tablet 400 mcg PO DAILY levothyroxine [Synthroid] 88 mcg tablet 44 mcg PO DAILY Patient Comments: TAKE 1/2 Tablet daily cholecalciferol (vitamin D3) 50 mcg (2,000 unit) capsule 50 mcg PO DAILY (DME) Nebulizer Machine 0 .Route .MEDSUPPLY Qty: 1 0RF Rx Instructions: As directed furosemide 20 mg tablet 10 mg PO QAM Qty: 90 0RF albuterol sulfate 90 mcg/actuation HFA aerosol inhaler See Rx Instructions .ROUTE .COMPLEX Qty: 51 1RF Dose Instruction: USE 2 INHALATIONS ORALLY EVERY 4 TO 6 HOURS NEEDED. USE SPACER. Rx Instructions: USE 2 INHALATIONS ORALLY EVERY 4 TO 6 HOURS NEEDED. USE SPACER. pravastatin 40 mg tablet See Rx Instructions .ROUTE .COMPLEX Qty: 90 1RF Dose Instruction: TAKE 1 TABLET BY MOUTH DAILY Rx Instructions: TAKE 1 TABLET BY MOUTH DAILY albuterol sulfate 2.5 mg /3 mL (0.083 %) solution for nebulization 2.5 mg inhalation Q4-6H PRN (Reason: shortness of breath or wheezing) Qty: 90 3RF Trelegy Ellipta 100-62.5-25 mcg blister with device See Rx Instructions .ROUTE .COMPLEX Qty: 180 1RF Dose Instruction: USE 1 INHALATION ORALLY DAILY. RINSE AND SPIT AFTEREACH USE Rx Instructions: USE 1 INHALATION ORALLY DAILY. RINSE AND SPIT AFTEREACH USE ferrous sulfate 325 mg (65 mg iron) tablet,delayed release (DR/EC) 325 mg PO BID Date of admission: 07/25/24 08:51 Primary Care Provider: Shon Willis Admitting Provider: Lucila Torres Attending physician on admission: Lucila Torres Condition: Stable Quality VTE Prophylaxis VTE prophylaxis: mechanical ordered and pharmacologic ordered Hospitalist MIPS Heart Failure (Exclusion) Patient has history of Heart Transplant or Left Ventricular Assistive Device?: No IF YES, STOP HERE Heart Failure (Qualifier) Patient has current or prior documentation of LVEF less than or equal to 40%, or mod/servere depressed LVSF?: No IF NO, STOP HERE
[2024-08-06] MEDS: HEPARIN SODIUM LOCK FLUSH 500 UNITS/5 ML SYRINGE IV PUSH (13:13)
--- NOTE | 2024-08-06 14:33 | PCPTNOTE ---
Per RN 14:33 pt is getting ready to be discharged this afternoon. Nursing is assisting him with his dressing and gathering his belongings at this time. COLETTE
== END 2024-08-06 15:20 | DRG 190 ==
LOC: ANHED 14:24 → ANHIMU 16:27 → ANH2MED 07-29 17:15 → ANH3MED 08-04 02:02
PROVIDERS: Family Medicine; Internal Medicine; Internal Medicine Pulmonary Disease; Nurse Practitioner Gerontology; Admitting Provider Internal Medicine; Emergency Provider Emergency Medicine; PCP Internal Medicine; Visit Provider Nurse Practitioner Family
DX: J44.1 Chronic obstructive pulmonary disease with (acute) exacerbation (principal); I50.33 Acute on chronic diastolic (congestive) heart failure; J18.9 Pneumonia, unspecified organism; I47.10 Supraventricular tachycardia, unspecified; I11.0 Hypertensive heart disease with heart failure; J44.0 Chronic obstructive pulmonary disease with (acute) lower respiratory infection; I48.91 Unspecified atrial fibrillation; I49.1 Atrial premature depolarization; E03.9 Hypothyroidism, unspecified; E55.9 Vitamin D deficiency, unspecified; E78.5 Hyperlipidemia, unspecified; G62.9 Polyneuropathy, unspecified; N40.0 Benign prostatic hyperplasia without lower urinary tract symptoms; M19.90 Unspecified osteoarthritis, unspecified site; F32.A Depression, unspecified; F41.9 Anxiety disorder, unspecified; Z20.822 Contact with and (suspected) exposure to COVID-19; Z79.01 Long term (current) use of anticoagulants; Z85.118 Personal history of other malignant neoplasm of bronchus and lung; Z85.810 Personal history of malignant neoplasm of tongue; Z85.89 Personal history of malignant neoplasm of other organs and systems; Z87.891 Personal history of nicotine dependence; Z90.2 Acquired absence of lung [part of]
CPT/HCPCS: 36415; 36600; 71045; 71046; 71250; 80048; 80053; 82103; 82104; 82728; 82805; 82948; 83540; 83550; 83605; 83735; 83880; 84145; 84484; 85018; 85025; 85027; 85055; 85610; 85730; 86738; 87040; 87449; 87633; 87637; 87899; 93005; 94640; 94667; 96361; 96365; 96368; 96375; 97110; 97116; 97162; 97166; 97530; 97535; 99239; 99285; A9270; C8929; G0378; J0282; J0456; J0696; J1642; J1756; J1938; J1956; J2919; J7030; J7040; J7050; J7512; Q9957

== ENCOUNTER 2024-08-20 17:18 | Inpatient (IN) | payer MEDICARE, SELFPAY ==
--- NOTE | ~2024-08-20 | XR_ITS ---
EXAMINATION: XR chest 1V DATE: 08/20/2024 18:31 INDICATION: Shortness of breath TECHNIQUE: frontal and lateral views of the chest were obtained. COMPARISON: Chest radiograph dated 07/25/[address] dated 07/27/2024 FINDINGS: Right internal jugular central venous port catheter with distal tip near the superior cavoatrial junc tion. Emphysema with increased lucency and architectural distortion in the upper lung zones. Volume l oss in left hemithorax with paramediastinal scarring in the left upper lung zone with appearance on p rior CT suggesting sequela of radiation fibrosis. Increasing opacities in the bilateral lower lung zo tang which represent superimposed atelectasis or pneumonia. No pleural effusion or pneumothorax. Heart size is normal. IMPRESSION: 1. Emphysema with increasing opacities in the bilateral lower lung zones which could represent pneumo tran or mild pulmonary edema. 2. 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 Reviewed, dictated and finalized at location A. IMPRESSION: 1. Emphysema with increasing opacities in the bilateral lower lung zones which could represent pneumonia or mild pulmonary edema. 2. 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
--- NOTE | ~2024-08-20 | XR_ITS ---
XR chest 1V portable Ordering provider: Xenia Moses APRN History: 84 years Male with . re eval for pnemonia . Comparison: August 20, 2024 FINDINGS: MEDIASTINUM: The cardiac silhouette is not enlarged. Right Port-A-Cath. LUNGS: Bilateral airspace disease unchanged from previous examination. A right pleural effusion. Underlying fibrotic changes OTHER: No free air under the diaphragm. IMPRESSION: No change from previous examination. Reviewed, dictated and finalized at location A.
[2024-08-20 17:19] VITALS: BP 130/71; PULSE 101; RESP 20; TEMP 38.2; O2SAT 96
[2024-08-20 17:26] VITALS: O2SAT 93
--- NOTE | 2024-08-20 17:46 | ECG_ITS ---
Test Date: 2024-08-20 18:08:56 Measurements Intervals [place]der Rate: 100 P: 93 NJ: 136 QRS: -83 QRSD: 101 T: 62 QT: 342 QTc: 442 Interpretive Statements SINUS TACHYCARDIA LEFT ANTERIOR FASCICULAR BLOCK [QRS AXIS <= -45, QR IN I, RS IN II] Compared to ECG 07/26/2024 09:21:56 Atrial flutter no longer present Electronically Signed On 08-21-2024 12:38:59 CDT by Rich Chahal M.D.
--- OUTSIDE RECORDS SUMMARY | 2024-08-20 18:24 | XMS_ITS | Encounter Summary ---
Author Organization [facility] Address [address] [place] [address] Phone Care Team Providers Care Residential Plumber Name Role Phone Shon Willis MD Primary Care Provider [phone] Govind Navarro MD Unavailable [phone] Sher Xiong MD PhD Unavailable [phone] Russ Rand MD Unavailable [phone] Deric Ingram MD Unavailable [phone] Aamir Cox MD Unavailable [phone] Dariela Carlin NP Unavailable [phone] Abdulkadir Santos MD Unavailable Leon Arroyo MD Unavailable Chidi Duke MD Unavailable [phone] Arely Hartman MD Unavailable + Encounter Details [...] on file Legal Sex Male 1:36 AM 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 Gender Identity Male 03/05/2020 2:02 PM WET MACHINE CUTTER Sexual Orientation Straight 07/09/2018 9: 09 PM [...] COVID: Suspected 04/05/2021 04/05/2021 04/05/2021 7:00 PM WET MACHINE CUTTER documented as of this encounter Care Teams Residential Plumber Relationship Specialty Start Date End Date Shon Willis MD [address] [facility] [address] [facility] [address] [place] [id number] PCP - General Internal Medicine 10/23/18 Govind Navarro MD [address] [place] [address] Medical Oncologist/Hematologis t Medical Oncology 02/09/20 Sher Xiong MD PhD [address] [place] [address] Consulting Physician Radiation Oncology 02/09/20 Russ Rand MD [address] [place] [address] Consulting Physician Otolaryngology 02/09/20 Deric Ingram MD [address] [place] [address] Consulting Physician Hematology and Oncology 03/11/20 03/29/21 Aamir Cox MD [address] [facility] [address] [place] [address] Radiation Oncology 03/13/20 Dariela Carlin, JOES [address] [place] [address] Nurse Practitioner Medical Oncology 03/28/20 05/18/20 Abdulkadir Santos MD [address] [facility] [address] [place] [address] Medical Oncologist/Hematologis t Medical Oncology 11/17/20 Leon Arroyo MD [address] [place] [address] Consulting Physician Internal Medicine 03/31/21 Chidi Duke MD [address] [place] [address] Consulting Physician Internal Medicine 04/16/21 Arely Hartman MD [address] [place] [address] Consulting Physician Cardiovascular Disease 04/16/21 documented as of this encounter
--- OUTSIDE RECORDS SUMMARY | 2024-08-20 18:24 | XMS_ITS | Clinical Summary ---
Author Organization [facility] Address [address] [place] [address] Care Team Providers Care Sales Merchandising Specialist Name Role Phone Unavailable Primary Care Provider Unavailabl e Immunizations Immunization Administration Dates Next Due Covid-19 Vaccine, Vector-nr, Rs-ad26, Pf, 0.5 Ml (ElasticBox/J&Inside Secure) 12/02/2020 Social History Tobacco Use Types Packs/Day [...] season) 2023 12/02/2020, 04/25/2020, 04/13/2020 Influenza Immunization (#1) 10/07/202410/07, 10/07/2019, 10/03/2018, Additional history exists Pneumococcal Immunization [...]
--- OUTSIDE RECORDS SUMMARY | 2024-08-20 18:24 | XMS_ITS | Encounter Summary ---
Author Organization [facility] Address [address] [place] [address] Phone Care Team Providers Care Director Family Name Role Phone Shon Willis MD Primary Care Provider [phone] Govind Navarro MD Unavailable Sher iXong MD PhD Unavailable [phone] Russ Rand MD Unavailable Deric Ingram MD [...] on file Legal Sex Male 1:36 AM CERTIFIED HAND THERAPIST Gender Identity Male 03/05/2020 2:02 PM CERTIFIED HAND THERAPIST Sexual Orientation Straight 07/09/2018 9: 09 PM [...] COVID: Suspected 04/05/2021 04/05/2021 04/05/2021 7:00 PM CERTIFIED HAND THERAPIST documented as of this encounter Care Teams Director Family Relationship Specialty Start Date End Date Shon Willis MD [address] [facility] [address] [place] [phone] PCP - General Internal Medicine 10/23/18 Govind Navarro MD [address] [place] [address] Medical Oncologist/Hematologis t Medical Oncology 02/09/20 Sher Xiong MD PhD [address] [place] [address] Consulting Physician Radiation Oncology 02/09/20 Russ Rand MD [address] [place] [address] Consulting Physician Otolaryngology 02/09/20 Deric Ingram MD [address] [place] [address] Consulting Physician Hematology and Oncology 03/11/20 03/29/21 Aamir Cox MD [address] [facility] [address] [place] [address] Radiation Oncology 03/13/20 Abdulkadir Santos MD [address] [facility] [address] [place] [address] Medical Oncologist/Hematologis t Medical Oncology 11/17/20 Leon Arroyo MD [address] [place] [address] Consulting Physician Internal Medicine 03/31/21 Chidi Duke MD [address] [place] [address] Consulting Physician Internal Medicine 04/16/21 Arely Hartman MD [address] [place] [address] Consulting Physician Cardiovascular Disease 04/16/21 documented as of this encounter
--- OUTSIDE RECORDS SUMMARY | 2024-08-20 18:24 | XMS_ITS | Encounter Summary ---
Author Organization [facility] Address [address] [place] [address] Phone Care Team Providers Care Automobile Tire Builder Name Role Phone Shon Willis MD Primary Care Provider [phone] Govind Navarro MD Unavailable [phone] Sher Xiong MD PhD Unavailable [phone] Russ Rand MD Unavailable Deric Ingram MD Unavailable Aamir Cox MD Unavailable Jonelle Fair NP Unavailable [phone] Andres Arreola MD Unavailable [phone] Dariela Carlin NP Unavailable Abdulkadir Santos MD Unavailable Leon Arroyo MD Unavailable [phone] Chidi Duke MD Unavailable [phone] Arely Hartman MD Unavailable + Encounter Details [...] on file Legal Sex Male 1:36 AM 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 ABDOMINAL MUSCLE SURGEON Gender Identity Male 03/05/2020 2:02 PM TRANSVERSE ABDOMINAL MUSCLE SURGEON Sexual Orientation Straight 07/09/2018 9: 09 PM [...] COVID: Suspected 04/05/2021 04/05/2021 04/05/2021 7:00 PM TRANSVERSE ABDOMINAL MUSCLE SURGEON documented as of this encounter Care Teams Automobile Tire Builder Relationship Specialty Start Date End Date Shon Willis MD [address] [place] [address] PCP - General Internal Medicine 10/23/18 Govind Navarro MD [address] [place] [address] Medical Oncologist/Hematologis t Medical Oncology 02/09/20 Sher Xiong MD PhD [address] [place] [address] Consulting Physician Radiation Oncology 02/09/20 Russ Rand MD [address] [place] [address] Consulting Physician Otolaryngology 02/09/20 Deric Ingram MD [address] [place] [address] Consulting Physician Hematology and Oncology 03/11/20 03/29/21 Aamir Cox MD [address] [facility] [address] [place] [address] Radiation Oncology 03/13/20 Jonelle Fair NP [address] [place] [address] Nurse Practitioner Medical Oncology 03/16/20 03/25/20 Andres Arreola MD [address] [place] [address] Consulting Physician Radiation Oncology 03/16/20 Dariela Carlin NP [address] [place] [address] Nurse Practitioner Medical Oncology 03/28/20 05/18/20 Abdulkadir Santos MD [address] [facility] [address] [place] [address] Medical Oncologist/Hematologis t Medical Oncology 11/17/20 Leon Arroyo MD [address] [place] [address] Consulting Physician Internal Medicine 03/31/21 Chidi Duke MD 1 [place] [address] Consulting Physician Internal Medicine 04/16/21 Arely Hartman MD 1 [place] [address] Consulting Physician Cardiovascular Disease 04/16/21 documented as of this encounter
--- OUTSIDE RECORDS SUMMARY | 2024-08-20 18:24 | XMS_ITS | Referral Summary ---
Author Organization [facility] Address [address] [place] [address] Care Team Providers Care Ukrainian Folk Arts Instructor Name Role Phone Shon Willis MD Primary Care Provider [phone] Govind Navarro MD Unavailable [phone] Sher Xiong MD PhD Unavailable [phone] Russ Rand MD Unavailable Aamir Cox MD Unavailable [phone] Abdulkadir Santos MD Unavailable [phone] Leon Arroyo MD Unavailable Chidi Duke MD Unavailable Encounters Date Type Department Care Team Description 08/15/2024 Telephone [facility] Cardiology [address] [place] [address] Faiza Demarco NP 08/13/2024 10:00 AM CDT Office Visit [facility] Cardiology [address] [place] [address] Faiza Demarco NP Paroxysmal atrial fibrillation (HCC) (Primary Dx); Paroxysmal atrial flutter (HCC); Chronic diastolic heart failure (HCC); Hospital discharge follow-up 08/02/2024 Orders Only [facility] Cardiology [address] [facility] [address] [place] [address] Brittani Parisi MD 07/31/2024 Telephone [facility] Oncology [address] [place] [address] Quynh Estrada 07/18/2024 Documentation [facility] Oncology [address] [facility] [address] [place] [address] Gail Pearson Rosibel 07/18/2024 Documentation [facility] Cardiology [address] [facility] [address] [place] [address] Elizabeth Medina, baseball scout Clearance 07/18/2024 10:00 AM CDT Office Visit [facility] Cardiology [address] [facility] [address] [place] [address] Milena Francisco NP Chronic diastolic heart failure (HCC); Primary hypertension; Paroxysmal atrial fibrillation (HCC); Acute congestive heart failure, unspecified heart failure type (HCC) 06/20/2024 Telephone [facility] Cardiology [address] [facility] Advanced [facility] 8th [place] [address] [place] [address] Una Yañez 06/20/2024 Documentation [facility] Cardiology [address] [facility] [address] [place] [address] Elizabeth Medina, MUSA 06/04/2024 Orders Only [facility] Scanning, Provider 05/29/2024 Telephone [facility] Oncology [address] [place] [phone] Quynh Estrada 05/27/2024 Telephone [facility] Oncology [address] [place] [address] Aisha Buckley, MUSA 05/24/2024 Telephone [facility] Oncology [address] [place] [address] Bridgette Smith RN 05/21/2024 11:15 AM CDT Office Visit [facility] Oncology [address] 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) (Primary Dx) from Last 3 Months Allergies No known active allergies Medications folic acid (FOLVITE) 400 mcg tablet Take 1 tablet (400 mcg total) by mouth nightly 12/16/19 17 Active pravastatin (PRAVACHOL) 40 mg tabletIndicatio ns:hyperlipidem ia Take 1 tablet (40 mg total) by mouth every morning Active albuterol HFA (PROVENTIL HFA,VENTOLIN HFA,PROAIR HFA) 90 mcg/actuation inhalerIndicati ons:Chronic Obstructive Pulmonary Disease Inhale 2 puffs every 4 (four) hours as needed Active cyanocobalamin, vitamin B-12, 1,000 mcg tablet extended releaseIndicati ons:Prevention of Vitamin B12 Deficiency Take 1 tablet by mouth nightly Active fluticasone-ume clidin-vilanter (TRELEGY ELLIPTA) 100-62.5-25 mcg inhalerIndicati ons:Maintenance Therapy for Asthma Inhale 1 puff every morning Active tamsulosin (FLOMAX) 0.4 mg extended release capsuleIndicati ons:benign prostatic hyperplasia with lower urinary tract sx Take 1 capsule (0.4 mg total) by mouth nightly 12 04/04/19 19 Active glucosamine HCl/chondroitin chowhdury (GLUCOSAMINE-CH ONDROITIN ORAL)Indication s:joints Take 1 Caplet by mouth every morning Active acetaminophen (TYLENOL) 500 mg tablet Take 1 tablet (500 mg total) by mouth every 6 (six) hours as needed for pain Active lidocaine-prilo bere (lidocaine-pril ocaine) cream APPLY TO TOP OF PORT 1 [...] (six) hours as needed 12/23/19 23 Active amoxicillin-cla vulanate (AUGMENTIN) 875-125 mg per tablet Take 1 tablet by mouth every 12 (twelve) hours 12/20/19 23 Active levothyroxine (SYNTHROID) 88 mcg tablet Take 1 tablet (88 mcg total) by mouth daily 05/16/19 24 Active OLANZapine (ZyPREXA) 2.5 mg tablet Take 1 tablet (2.5 mg total) by mouth nightly Active apixaban (Eliquis) 5 mg tabletIndicatio ns:Chronic diastolic heart failure (HCC),Paroxysma l atrial fibrillation (HCC) Take 1 tablet (5 mg total) by mouth 2 (two) times a day 180 tablet 3 11/27/19 24 Active gabapentin (NEURONTIN) 100 mg capsuleIndicati ons:Nerve tremor TAKE 1 CAPSULE TWICE DAILY 180 [...] Active Additional Information Patient not taking.Reported on 08/13/2024 furosemide (LASIX) 20 mg tablet Take 0.5 tablets (10 mg total) by mouth daily 07/19/19 25 Active spironolactone (ALDACTONE) 25 mg tablet Take 1 tablet (25 mg total) by mouth every other day 45 tablet 1 08/21/19 25 Active spironolactone (ALDACTONE) 25 mg tablet Take 1 tablet (25 mg total) by mouth every other day 10/19/19 24 025 Discontinued Active Problems Problem Noted Date Diagnosed Date Pericardial effusion with cardiac tamponade 03/10 Assessment & Plan (04/13/2021 3:08 PM PIGGERY WORKER): Patient was found to have new [...] cytology. Drain removed on 04/09. Repeat TTE 3 without repeat effusion. - Cardiac onc following, agree with plan for anticoagulation for PE, continued tele monitoring. - ASA 81 mg daily, pravastatin 40 mg daily - still with BLE 2+, but this appears chronic so will continue home PO lasix 40 daily - daily weights Assessment & Plan (04/10/2021 6:39 AM PIGGERY WORKER): Patient was found to have new [...] 04/05/2021 Assessment & Plan (04/13/2021 3:06 PM PIGGERY WORKER): CT chest (04/04) re-read by our radiologists showed new RUL PE. - transitioned to eliquis on 04-13 from heparin drip Assessment & Plan (04/10/2021 6:34 AM PIGGERY WORKER): CT chest (04/04) re-read by our radiologists showed new RUL PE.. - currently on heparin drip, will continue until repeat echo before transition to technician terminal and repeater anticoagulation Stage 3b chronic kidney disease 04/05/2021 Assessment & Plan (04/11/2021 12:15 PM PIGGERY WORKER): Baseline Cr 1-1.1, seems to have worsening renal failure since 03/31 which has now normalized. - will monitor closely Assessment & Plan (04/10/2021 6:36 AM PIGGERY WORKER): Baseline Cr 1-1.1, seems to have worsening renal failure since 03/31 which has now normalized. - willctm HTN (hypertension) 04/05/2021 Assessment & Plan (04/11/2021 12:14 PM PIGGERY WORKER): Continue home metoprolol - continue lasix Assessment & Plan (04/10/2021 6:36 AM PIGGERY WORKER): Resume home metoprolol and lasix Paroxysmal atrial fibrillation with RVR 04/05/19 Assessment & Plan (04/11/2021 12:15 PM PIGGERY WORKER): Has new onset A fib w/ RVR on 03/30, started on metoprolol (cardizem discontinued) at [facility]. Self converted. Patient eventually developed A fib w/ RVR in the 140's-170's, that persisted at least >60 mins, w/ stable BP and no chest pain or AMS. Required metoprolol IV and ICU monitoring, now better controlled - continue metoprolol 25 BID, anticoagulation as per PE section Assessment & Plan (04/10/2021 6:35 AM PIGGERY WORKER): Has new onset A fib w/ RVR on 03/30, started on metoprolol (cardizem discontinued) at [facility]. Self converted. Patient eventually developed A fib w/ RVR in the 140's-170's, that persisted at least >60 mins, w/ stable BP and no chest pain or AMS. Required metoprolol IV and ICU monitoring, now better controlled - continue metoprolol 25 BID, anticoagulation as per PE section Peripheral neuropathy 04/05/2021 Assessment & Plan (04/11/2021 12:15 PM PIGGERY WORKER): Due to chemotherapy. - home vitamin B12 Assessment & Plan (04/05/2021 9:30 PM PIGGERY WORKER): Due to chemotherapy. - Resume home vitamin B12 COPD (chronic obstructive pulmonary disease) Assessment & Plan (04/11/2021 12:14 PM PIGGERY WORKER): On trilegy Ellipta and PRN albuterol at home. - cont home inhalers. Assessment & Plan (04/05/2021 9:50 PM PIGGERY WORKER): On trilegy Ellipta and PRN albuterol at home. - Resume home inhalers. Coagulopathy 04/05/2021 Assessment & Plan (04/05/2021 9:48 PM PIGGERY WORKER): Due to Eliquis Atrial flutter with rapid ventricular response 0 03/30/2021 Encounter for person encountering health service s 10/28/2020 Squamous cell carcinoma of base of tongue (CMS/H CC) 02/04/2020 Cancer Staging:Clinical stage from 01/28/2020:Stage III(cT2, cN1, cM0, p16-) - Signed by Sher Xiong MD PhD on 02/10/2020 Assessment & Plan (04/11/2021 12:15 PM PIGGERY WORKER): Dx in 01/2020 w/ stage III [...] onc Assessment & Plan (04/05/2021 9:30 PM PIGGERY WORKER): Dx in 01/2020 w/ stage III [...] (01/21/2020): Added automatically from request for surgery [id number] Benign prostate hyperplasia 12/04/2019 Hypercholesteremia 12/04/2019 Insomnia 12/04/2019 Primary cancer of left upper lobe of lung 2017 Resolved Problems Problem Noted Date Diagnosed Date Resolved Date Severe malnutrition 04/06/2021 11/09/19 22 Assessment & Plan (04/11/2021 12:15 PM PIGGERY WORKER): Per RD note Dyspnea on exertion 04/05/2021 04/11/19 22 Assessment & Plan (04/05/2021 9:12 PM PIGGERY WORKER): Due to large pericardial effusion w/ cardiac tamponade physiology, multifocal pneumonia, new RUL PE (despite eliquis) in addition to severe emphysema and metastatic NSCLC. P/w dyspnea on exertion that started on Monday and has progressively worsened. Presented to [facility] ED (CBC, CMP, pro-BNP, Troponin, CT [...] on Zosyn for multifocal pneumonia. Will need GEOGRAPHIC INFORMATION SYSTEM ANALYST eval due to concern for aspiration. - Cardio-oncology consulted for pericardiocentesis, will be done tomorrow AM as his last dose of Eliquis was on 04/04 in AM. - Hold off on therapeutic AC as INR is 2, and he is planned for pericardiocentesis. Multifocal pneumonia 04/05/2021 022 Assessment & Plan (04/05/2021 9:19 PM PIGGERY WORKER): CT chest (04/05) at OSH re-read by our radiologists showed multifocal pneumonia, likely due to aspiration. - As per above, RVP, sputum cx, started zosyn and will need GEOGRAPHIC INFORMATION SYSTEM ANALYST eval once he is more stable. Non-small cell lung cancer 04/05/2021 0 05/21/2021 Assessment & Plan (04/11/2021 12:15 PM PIGGERY WORKER): Dx in 08/2007 w/ stage I [...] onc Assessment & Plan (04/05/2021 9:30 PM PIGGERY WORKER): Dx in 08/2007 w/ stage I [...] Preservative Free, Intramuscular 10/03/2018,10/25/2017 Influenza, Unspecified 10/22/2020 [email or web address] (J&J) SARS-CoV-2 Vaccination 04/25/2020 Pneumococcal Polysaccharide PPV23 [...] week 04/07/2021 How often do you attend [facility] or congregation services? More than 4 times per year 04/07/2021 Do you belong to any clubs o r organizations such as jehovah's witness groups, unions, fraternal or athletic groups, or [...] on file Legal Sex Male 1:36 AM PIGGERY WORKER Gender Identity Male 03/05/2020 2:02 PM PIGGERY WORKER Sexual Orientation Straight 07/09/2018 9: 09 PM CDT Last Filed Vital Signs Vital Sign Reading Time Taken Comments Blood Pressure 100/58 08/13/2024 10:51 AM CDT Pulse 130 08/13/2024 10:51 AM CDT Temperature 36.7 C (98 F) 07/18/2024 9:26 AM CDT Respiratory Rate 15 05/21/2024 10:32 AM CDT Oxygen Saturation 93% 08/13/2024 10:13 AM CDT Inhaled Oxygen Concentration - - Weight 69.4 kg (153 lb) 08/13/2024 10:13 AM CDT Height 170.2 cm (5' 7) 08/13/2024 10:13 AM CDT Body Mass Index 23.96 08/13/2024 10:13 AM CDT Plan of Treatment Not on file Medical Devices Implanted Type Area Gang Plank Workman Device Identifier Shelf Expiration Date Model / Serial / Lot 8fr Dignity Mid-Sized Power Port Implanted:Qty : 1 on 03/02/2018 at [facility] Catheter Right: Chest Med[employer] [id number] 01/05/2022 / 0 [id number] / [id number] Procedures Procedure Name Priority Date/Time Associated Diagnosis Comments ECG 12-LEAD Routine 08/13/2024 11:09 AM CDT Paroxysmal atrial fibrillation (HCC) CARDIOLOGY DOCUMENT SCAN Routine 07/28/2024 4:32 PM CDT CARDIOLOGY DOCUMENT SCAN Routine 07/27/2024 4:31 PM CDT CARDIOLOGY DOCUMENT SCAN Routine 07/26/2024 4:29 PM CDT CARDIOLOGY DOCUMENT SCAN Routine 07/26/2024 4:28 PM CDT CARDIOLOGY DOCUMENT SCAN Routine 07/25/2024 4:24 PM CDT SCAN - RADIOLOGY/IMAGING 06/04/2024 from Last 3 Months Results * ECG 12 lead (08/13/2024 11:09 AM CDT) 08/13/2024 11:0 9 AM CDT Faiza Demarco NP ECG ORDERABLES Final Res ult * Cardiology Document Scan (07/28/2024 4:32 PM CDT) Anatomical Region Laterality Modality Other Shawn Hoffman MD [facility] CARDIAC SERVICES PROC EDURES Final Result * Cardiology Document Scan (07/27/2024 4:31 PM CDT) Anatomical Region Laterality Modality Other Shawn Hoffman MD CV CARDIAC SERVICES PROC EDURES Final Result * Cardiology Document Scan (07/26/2024 4:29 PM CDT) Anatomical Region Laterality Modality Other Brittani Parisi MD CV CARDIAC SERVICES PROCEDU RES Final Result * Cardiology Document Scan (07/26/2024 4:28 PM CDT) Anatomical Region Laterality Modality Other Brittani Parisi MD CV CARDIAC SERVICES PROCEDU RES Final Result * Cardiology Document Scan (07/25/2024 4:24 PM CDT) Anatomical Region Laterality Modality Other Brittani Parisi MD CV CARDIAC SERVICES PROCEDU RES Final Result * SCAN - RADIOLOGY/IMAGING (06/04/2024) Anatomical Region Laterality Modality Other Provider Scanning Final Result from Last 3 Months Insurance [facility] MEDICARE ADVANTAGE [facility] MEDICARE [facility] MEDICARE Advance Directives For more information, please contact: [phone] Documents on File Type Date Recorded Patient Taxicab Starter Expl anation ADVANCE DIRECTIVE 01/28/2020 5:40 AM [...] First Alternate Health Care Agent Care Teams Ukrainian Folk Arts Instructor Relationship Specialty Start Date End Date Shon Willis MD [address] [place] [address] PCP - General Internal Medicine 10/23/18 Govind Navarro MD [address] [place] [address] Medical Oncologist/Laundry Presser Medical Oncology 02/09/20 Sher Xiong MD PhD [address] [place] [address] Consulting Physician Radiation Oncology 02/09/20 Russ Rand MD [address] [place] [address] Consulting Physician Otolaryngology 02/09/20 Aamir Cox MD [address] [place] [address] Radiation Oncology 03/13/20 Abdulkadir Santos MD [address] [place] [address] Medical Oncologist/Laundry Presser Medical Oncology 11/17/20 Leon Arroyo MD [address] [facility] [address] [place] [address] Consulting Physician Internal Medicine 03/31/21 Chidi Duke MD [address] [place] [address] Consulting Physician Internal Medicine 04/16/21
--- NOTE | 2024-08-20 18:25 | PC.NURSE ---
Pt. to x-ray
--- OUTSIDE RECORDS SUMMARY | 2024-08-20 18:25 | XMS_ITS | Clinical Summary ---
Author Organization [facility] Address [address] [place] [address] Care Team Providers Care Special Effects Makeup Artist Name Role Phone Shon Willis MD Primary Care Provider [phone] Govind Navarro MD Unavailable [phone] Sher Xiong MD PhD Unavailable [phone] Russ Rand MD Unavailable Aamir Cox MD Unavailable [phone] Abdulkadir Santos MD Unavailable Leon Arroyo MD Unavailable [phone] Chidi Duke MD Unavailable [phone] Allergies No known active allergies Medications folic [...] 12 04/04/19 19 Active glucosamine HCl/chondroitin chowdhury (GLUCOSAMINE-CH ONDROITIN ORAL)Indication s:joints Take 1 Caplet [...] 03/10 Assessment & Plan (04/13/2021 3:08 PM EARLY CHILDHOOD): Patient was found to have new A [...] weights Assessment & Plan (04/10/2021 6:39 AM EARLY CHILDHOOD): Patient was found to have new A [...] 04/05/2021 Assessment & Plan (04/13/2021 3:06 PM EARLY CHILDHOOD): CT chest (04/04) re-read by our radiologists showed new RUL PE. - transitioned to eliquis on 04-13 from heparin drip Assessment & Plan (04/10/2021 6:34 AM EARLY CHILDHOOD): CT chest (04/04) re-read by our radiologists showed new RUL PE.. - currently on heparin drip, will continue until repeat echo before transition to residential anticoagulation Stage 3b chronic kidney disease 04/05/2021 Assessment & Plan (04/11/2021 12:15 PM EARLY CHILDHOOD): Baseline Cr 1-1.1, seems to have worsening renal failure since 03/31 which has now normalized. - will monitor closely Assessment & Plan (04/10/2021 6:36 AM EARLY CHILDHOOD): Baseline Cr 1-1.1, seems to have worsening renal failure since 03/31 which has now normalized. - willctm HTN (hypertension) 04/05/2021 Assessment & Plan (04/11/2021 12:14 PM EARLY CHILDHOOD): Continue home metoprolol - continue lasix Assessment & Plan (04/10/2021 6:36 AM EARLY CHILDHOOD): Resume home metoprolol and lasix Paroxysmal atrial fibrillation with RVR 04/05/19 Assessment & Plan (04/11/2021 12:15 PM EARLY CHILDHOOD): Has new onset A fib w/ RVR on 03/30, started on metoprolol (cardizem discontinued) at [facility]. Self converted. Patient eventually developed A fib w/ RVR in the 140's-170's, that persisted at least >60 mins, w/ stable BP and no chest pain or AMS. Required metoprolol IV and ICU monitoring, now better controlled - continue metoprolol 25 BID, anticoagulation as per PE section Assessment & Plan (04/10/2021 6:35 AM EARLY CHILDHOOD): Has new onset A fib w/ RVR on 03/30, started on metoprolol (cardizem discontinued) at [facility]. Self converted. Patient eventually developed A fib w/ RVR in the 140's-170's, that persisted at least >60 mins, w/ stable BP and no chest pain or AMS. Required metoprolol IV and ICU monitoring, now better controlled - continue metoprolol 25 BID, anticoagulation as per PE section Peripheral neuropathy 04/05/2021 Assessment & Plan (04/11/2021 12:15 PM EARLY CHILDHOOD): Due to chemotherapy. - home vitamin B12 Assessment & Plan (04/05/2021 9:30 PM EARLY CHILDHOOD): Due to chemotherapy. - Resume home vitamin B12 COPD (chronic obstructive pulmonary disease) Assessment & Plan (04/11/2021 12:14 PM EARLY CHILDHOOD): On trilegy Ellipta and PRN albuterol at home. - cont home inhalers. Assessment & Plan (04/05/2021 9:50 PM EARLY CHILDHOOD): On trilegy Ellipta and PRN albuterol at home. - Resume home inhalers. 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) 02/04/2020 Cancer Staging:Clinical stage from 01/28/2020:Stage III(cT2, cN1, cM0, p16-) - Signed by Sher Xiong MD PhD on 02/10/2020 Assessment & Plan (04/11/2021 12:15 PM EARLY CHILDHOOD): Dx in 01/2020 w/ stage III disease, [...] onc Assessment & Plan (04/05/2021 9:30 PM EARLY CHILDHOOD): Dx in 01/2020 w/ stage III disease, [...] (01/21/2020): Added automatically from request for surgery [id number] Benign prostate hyperplasia 12/04/2019 Hypercholesteremia 12/04/2019 Insomnia 12/04/2019 Primary cancer of left upper lobe of lung 2017 Resolved Problems Problem Noted Date Diagnosed Date Resolved Date Severe malnutrition 04/06/2021 11/09/19 Assessment & Plan (04/11/2021 12:15 PM EARLY CHILDHOOD): Per RD note Dyspnea on exertion 04/05/2021 04/11/19 22 Assessment & Plan (04/05/2021 9:12 PM EARLY CHILDHOOD): Due to large pericardial effusion w/ cardiac tamponade physiology, multifocal pneumonia, new RUL PE (despite eliquis) in addition to severe emphysema and metastatic NSCLC. P/w dyspnea on exertion that started on Monday and has progressively worsened. Presented to [facility] ED (CBC, CMP, pro-BNP, Troponin, CT [...] on Zosyn for multifocal pneumonia. Will need SCREW MACHINE REPAIRER eval due to concern for aspiration. - Cardio-oncology consulted for pericardiocentesis, will be done tomorrow AM as his last dose of Eliquis was on 04/04 in AM. - Hold off on therapeutic AC as INR is 2, and he is planned for pericardiocentesis. Multifocal pneumonia 04/05/2021 022 Assessment & Plan (04/05/2021 9:19 PM EARLY CHILDHOOD): CT chest (04/05) at OSH re-read by our radiologists showed multifocal pneumonia, likely due to aspiration. - As per above, RVP, sputum cx, started zosyn and will need SCREW MACHINE REPAIRER eval once he is more stable. Non-small cell lung cancer 04/05/2021 0 05/21/2021 Assessment & Plan (04/11/2021 12:15 PM EARLY CHILDHOOD): Dx in 08/2007 w/ stage I disease [...] onc Assessment & Plan (04/05/2021 9:30 PM EARLY CHILDHOOD): Dx in 08/2007 w/ stage I disease [...] Type Department Care Team Description 08/15/[address] [facility] Medical [facility] Cardiology [address] [place] [phone] Faiza Demarco NP 08/13/2024 10:00 AM CDT Office Visit [facility] Cardiology [address] [place] [address] [place] [phone] Faiza Demarco NP Paroxysmal atrial fibrillation (HCC) (Primary Dx); Paroxysmal atrial flutter (HCC); Chronic diastolic heart failure (HCC); Hospital discharge follow-up 08/02/2024 Orders Only [facility] Cardiology [address] [place] [address] [place] [phone] Brittani Parisi MD 07/31/2024 Telephone [facility] Oncology [address] [place] [address] Quynh Estrada 07/18/2024 10:00 AM CDT Office Visit [facility] Cardiology [address] [place] [address] [place] [phone] Milena Francisco NP Chronic diastolic heart failure (HCC); Primary hypertension; Paroxysmal atrial fibrillation (HCC); Acute congestive heart failure, unspecified heart failure type (HCC) 07/18/2024 Documentation [facility] Oncology [address] [facility] Floor 8 [place] [address] Gail Pearson Rosibel 07/18/2024 Documentation [facility] Cardiology [address] [facility] [address] [place] [address] Elizabeth Medina, inside b2b sales Clearance 06/20/2024 Telephone [facility] Cardiology [address] [facility] 8th [place] [address] [place] [address] Una Yañez 06/20/2024 Documentation [facility] Cardiology [address] [facility] [address] [place] [address] Elizabeth Medina, RN 06/04/2024 Orders Only [facility] Scanning, Provider 05/29/2024 Telephone [facility] Oncology [address] [place] [phone] Quynh Estrada 05/27/2024 Telephone [facility] Oncology [address] [place] [phone] Aisha Buckley RN 05/24/2024 Telephone [facility] Oncology [address] [place] [phone] Bridgette Smith RN 05/21/2024 11:15 AM CDT Office Visit [facility] Oncology [address] [facility] [address] [place] [phone] Abdulkadir Santos MD 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) (Primary Dx) 05/21/2024 9:45 AM CDT Office Visit [facility] Oncology [address] [place] [phone] Govind Navarro MD 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) (Primary Dx) from Last 3 Months Immunizations Immunization Administration Dates Next Due Influenza, Quadrivalent, Hig h Dose, Preservative Free, Intrr 10/07/2019 Influenza, Trivalent, High D ose, Split, Preservative Free, Intramuscular 10/03/2018,10/25/2017 Influenza, Unspecified 10/22/2020 [employer] ([employer]) SARS-CoV-2 Vaccination 04/25/2020 Pneumococcal Polysaccharide PPV23 [...] often do you attend chur ch or episcopal services? More than 4 times per year 04/07/2021 Do you belong to any clubs o r organizations such as yarsanism groups, unions, fraternal or athletic groups, or [...] place to sleep or slept in a mcfp (including now)? No 04/07/2021 Sex and Gender Information Value Date Recorded Sex Assigned at Not on file Legal Sex Male 1:36 AM EARLY CHILDHOOD Gender Identity Male 03/05/2020 2:02 PM EARLY CHILDHOOD Sexual Orientation Straight 07/09/2018 9: 09 PM [...] 08/13/2024 10:13 AM CDT Plan of Treatment Health Maintenance Due Date Last Done Comments Hepatitis B Screening 1958 Zoster Vaccine (1 of 2) 1988 Well Visit 65+ 05/04/2003 Pneumococcal vaccine 65+ (2 of 2 - PCV) 10/25/2018 10/25/2017 Depression Screening 04/05/2022 04/05/2021 Fall Risk Assessment 04/16/2022 04/16/2021 Covid-19 Vaccine (3 - 2023-2 5 season) 2023 12/02/2020, 04/25/2020 Influenza Vaccine (#1) 2024 , 10/07/2019, 10/03/2018, Additional history exists DTaP/Tdap/Td Vaccine (2 - Td or Tdap) 10/06/2029 10/07/2019 Medical Devices Implanted Type Area Temper Mill Roller Device Identifier Shelf Expiration Date Model / Serial / Lot 8fr Dignity Mid-Sized Power Port Implanted:Qty : 1 on 03/02/2018 at [facility] Catheter Right: Chest Medcomp [id number] 01/05/2022 / 0 [id number] / [id number] Procedures Procedure Name Priority Date/Time Associated Diagnosis [...] PM CDT) Anatomical Region Laterality Modality Other us Brittani Parisi MD CV CARDIAC SERVICES PROCEDU [...] Final Result from Last 3 Months Insurance [facility] MEDICARE ADVANTAGE [facility] MEDICARE AETNA MEDICARE Advance Directives For more information, please contact: [phone] Documents on File Type Date Recorded Patient Combine Driver Expl anation ADVANCE DIRECTIVE 01/28/2020 5:40 AM [...] First Alternate Health Care Agent Care Teams Special Effects Makeup Artist Relationship Specialty Start Date End Date Shon Willis MD [address] [facility] [address] [place] [address] PCP - General Internal Medicine 10/23/18 Govind Navarro MD [address] [place] [address] Medical Oncologist/Timber Estimator Medical Oncology 02/09/20 Sher Xiong MD PhD [address] [place] [address] Consulting Physician Radiation Oncology 02/09/20 Russ Rand MD [address] [place] [address] Consulting Physician Otolaryngology 02/09/20 Aamir Cox MD [address] [facility] [address] [place] [address] Radiation Oncology 03/13/20 Abdulkadir Santos MD [address] [facility] [address] [place] [address] Medical Oncologist/Timber Estimator Medical Oncology 11/17/20 Leon Arroyo MD [address] [place] [address] Consulting Physician Internal Medicine 03/31/21 Chidi Duke MD [address] [place] [address] Consulting Physician Internal Medicine 04/16/21
--- OUTSIDE RECORDS SUMMARY | 2024-08-20 18:25 | XMS_ITS | Clinical Summary ---
Author Organization [facility] Address [address] [place] [address] Care Team Providers Care Recorder Helper Gravity Prospecting Name Role Phone Shon Willis MD Primary Care Provider [phone] Source Comments [facility],non-owned Affiliates and Associated Physician Practices is amultiple site organization consisting of ambulatory clinics and hospital sitesin [place], [place], [place] and [place]. This disclosure is being madepursuant to the Care Everywhere program and may not contain all information available regarding this patient. Last updated 17.[facility] Allergies No known active allergies Medications * Be aware that medications may not be up to date on this document. Alwaysverify current medications with the patient. amLODIPine (NORVASC) 5 MG tablet Take 5 mg by mouth once daily 0 Active fluticasone propionate (FLONASE) 50 MCG/ACT nasal spray [place] 2 sprays into each nostril once daily [...] mouth 2 times daily Active nystatin (MYCOSTATIN) 194908 UNIT/GM ointment Apply a thin amount three [...] on file Legal Sex Male 6:37 AM OFFICE CLIN ASST Gender Identity Not on file Sexual Orientation Not on file Last Filed Vital Signs Vital Sign Reading Time Taken Comments Blood Pressure 142/73 01/08/2020 9:46 AM OFFICE CLIN ASST Pulse 75 01/08/2020 9:46 AM OFFICE CLIN ASST Temperature 36.1 C (97 F) 12/04/2019 9:39 AM CDT Respiratory Rate - - Oxygen Saturation - - Inhaled Oxygen Concentration - - Weight 74.6 kg (164 lb 6.4 oz) 01/08/2020 9:46 A M OFFICE CLIN ASST Height 177.8 cm (5' 10) 01/08/2020 9:46 AM OFFICE CLIN ASST Body Mass Index 23.59 01/08/2020 9:46 AM OFFICE CLIN ASST Plan of Treatment Health Maintenance Due Date Last Done Comments PNEUMOCOCCAL VACCINE 50+ (1 of 1 - PCV) 1988 ZOSTER VACCINE (1 of 2) 1988 Respiratory Syncytial Virus (RSV) Vaccine Pt: or over 60 yrs (1 - 1-dose 75+ series) 2013 COVID-19 VACCINE ( - 2023-2 5 season) 2023 DEPRESSION SCREENING 02/07/2024 MEDICARE AWV CALENDAR YEAR 2024 INFLUENZA VACCINE (#1) 2024 10/07/2019 DTAP/TDAP/TD VACCINES (2 - T d or [...] patient's age to complete this topic Insurance UHC MANAGED MEDICARE ADV AETNA MEDICARE ADV SELF PAY NO INSURANCE Member Subscriber Plan / Payer (Ef fective for All Dates) Name:Chava Stoneseth Argueta Member ID:Not on file Relation to Subscriber:Not on file Name:CHAVA STONESeth Argueta Subscriber ID:Not on file (Home) Address: [address] [place] [phone] Payer ID:Not on file Group ID:Not on file Type:Self Pay Address: [place], [place] Care Teams Recorder Helper Gravity Prospecting Relationship Specialty Start Date End Date Shon Willis MD [address] [place] [address] PCP - General 11/18/19
--- OUTSIDE RECORDS SUMMARY | 2024-08-20 18:25 | XMS_ITS | Encounter Summary ---
Author Organization [facility] Address [address] [place] [address] Phone Care Team Providers Care Quill Layer Name Role Phone Shon Willis MD Primary Care Provider [phone] Govind Navarro MD Unavailable [phone] Sher Xiong MD PhD Unavailable [phone] Russ Rand MD Unavailable [phone] Aamir Cox MD Unavailable [phone] Abdulkadir Santos MD Unavailable Leon Arroyo MD Unavailable [phone] Chidi Duke MD Unavailable Encounter Details Date Type Department Care Team (Latest Contact Info) Description 06/04/2024 Orders Only [facility] Scanning, Provider Social History Tobacco [...] often do you attend chur ch or christian services? More than 4 times per year 04/07/2021 Do you belong to any clubs o r organizations such as scientologist groups, unions, fraternal or athletic groups, or [...] place to sleep or slept in a retirement (including now)? No 04/07/2021 Sex and Gender Information Value Date Recorded Sex Assigned at Not on file Legal Sex Male 1:36 AM MANAGER DIABETES Gender Identity Male 03/05/2020 2:02 PM MANAGER DIABETES Sexual Orientation Straight 07/09/2018 9: 09 PM [...] on filedocumented in this encounter Care Teams Quill Layer Relationship Specialty Start Date End Date Shon Willis MD [address] [place] [id number] PCP - General Internal Medicine 10/23/18 Govind Navarro MD [address] [place] [address] Medical Oncologist/Order Administrator Medical Oncology 02/09/20 Sher Xiong MD PhD [address] [place] [address] Consulting Physician Radiation Oncology 02/09/20 Russ Rand MD [address] [place] [address] Consulting Physician Otolaryngology 02/09/20 Aamir Cox MD [address] [facility] [address] [place] [address] Radiation Oncology 03/13/20 [place] [address] [place] [address] [address] [place] [address] Medical Oncologist/Order Administrator Medical Oncology 11/17/20 Leon Arroyo MD [address] [facility] [address] [place], [place] [phone] Consulting Physician Internal Medicine 03/31/21 Chidi Duke MD [address] [place] [address] Consulting Physician Internal Medicine 04/16/21 documented as of this encounter
--- OUTSIDE RECORDS SUMMARY | 2024-08-20 18:25 | XMS_ITS | Continuity of Care Document ---
Author Organization [facility] Address [address] [place] [address] [address] [place] [address] Phone Care Team Providers Care Cable Tester Name Role Phone Boby Lockett Unavailable Unavailable Procedures Procedure Date Office/outpatient Visit, Est Eye Exam, New Patient No Script Refraction Advance Directives Directive Yes / No Effective Date File Name No Information Encounters Encounter Description Practice Location Reason(s) For Visit Diagnoses Date Provider Providers Copied on Encounter Office/outpat ient Visit, Est [facility], [address], [place], [place], [id number], [place] tel:[phone] [facility] No Information 4-[address] Levy Landis. [facility] , [address], [place], [place], [facility], [place]. tel:[phone] [facility], [address] [place] [address] [address], [place], [place], [id number], [place] tel:[phone] [facility] No Information [address] Solares. [address] [facility] [address], [place], [place], [facility], [place]. tel:[phone] Family History Family Member Type Diagnosis Age At Onset No Information Payers Payer name Insurance type Covered constitution party ID Authoriza tion(s) Medicare [facility] [id number] Social History Type Description Quantity Date Captured [...]
--- OUTSIDE RECORDS SUMMARY | 2024-08-20 18:25 | XMS_ITS | Clinical Summary ---
Author Organization [facility] Address [address] [place] [address] Care Team Providers Care Motel Operator Name Role Phone Unavailable Primary Care Provider [...]
--- OUTSIDE RECORDS SUMMARY | 2024-08-20 18:25 | XMS_ITS ---
Author Organization [facility] Address [address] [place] [address] Care Team Providers Care 3D Technologist Name Role Phone Shon Willis MD Primary Care Provider [phone] Govind Navarro MD Unavailable [phone] Sher Xiong MD PhD Unavailable [phone] Russ Rand MD Unavailable [phone] Aamir Cox MD Unavailable [phone] Abdulkadir Santos MD Unavailable Leon Arroyo MD Unavailable [phone] Chidi Duke MD Unavailable [phone] Active Problems Problem Noted Date Diagnosed Date Pericardial effusion with cardiac tamponade 03/10 Assessment & Plan (04/13/2021 3:08 PM SHELL ASSEMBLER): Patient was found to have new A [...] weights Assessment & Plan (04/10/2021 6:39 AM SHELL ASSEMBLER): Patient was found to have new A [...] 04/05/2021 Assessment & Plan (04/13/2021 3:06 PM SHELL ASSEMBLER): CT chest (04/04) re-read by our radiologists showed new RUL PE. - transitioned to eliquis on 04-13 from heparin drip Assessment & Plan (04/10/2021 6:34 AM SHELL ASSEMBLER): CT chest (04/04) re-read by our radiologists showed new RUL PE.. - currently on heparin drip, will continue until repeat echo before transition to usp anticoagulation Stage 3b chronic kidney disease 04/05/2021 Assessment & Plan (04/11/2021 12:15 PM SHELL ASSEMBLER): Baseline Cr 1-1.1, seems to have worsening renal failure since 03/31 which has now normalized. - will monitor closely Assessment & Plan (04/10/2021 6:36 AM SHELL ASSEMBLER): Baseline Cr 1-1.1, seems to have worsening renal failure since 03/31 which has now normalized. - willctm HTN (hypertension) 04/05/2021 Assessment & Plan (04/11/2021 12:14 PM SHELL ASSEMBLER): Continue home metoprolol - continue lasix Assessment & Plan (04/10/2021 6:36 AM SHELL ASSEMBLER): Resume home metoprolol and lasix Paroxysmal atrial fibrillation with RVR 04/05/19 Assessment & Plan (04/11/2021 12:15 PM SHELL ASSEMBLER): Has new onset A fib w/ RVR on 03/30, started on metoprolol (cardizem discontinued) at [facility]. Self converted. Patient eventually developed A fib w/ RVR in the 140's-170's, that persisted at least >60 mins, w/ stable BP and no chest pain or AMS. Required metoprolol IV and ICU monitoring, now better controlled - continue metoprolol 25 BID, anticoagulation as per PE section Assessment & Plan (04/10/2021 6:35 AM SHELL ASSEMBLER): Has new onset A fib w/ RVR on 03/30, started on metoprolol (cardizem discontinued) at [facility]. Self converted. Patient eventually developed A fib w/ RVR in the 140's-170's, that persisted at least >60 mins, w/ stable BP and no chest pain or AMS. Required metoprolol IV and ICU monitoring, now better controlled - continue metoprolol 25 BID, anticoagulation as per PE section Peripheral neuropathy 04/05/2021 Assessment & Plan (04/11/2021 12:15 PM SHELL ASSEMBLER): Due to chemotherapy. - home vitamin B12 Assessment & Plan (04/05/2021 9:30 PM SHELL ASSEMBLER): Due to chemotherapy. - Resume home vitamin B12 COPD (chronic obstructive pulmonary disease) Assessment & Plan (04/11/2021 12:14 PM SHELL ASSEMBLER): On trilegy Ellipta and PRN albuterol at home. - cont home inhalers. Assessment & Plan (04/05/2021 9:50 PM SHELL ASSEMBLER): On trilegy Ellipta and PRN albuterol at home. - Resume home inhalers. 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) 02/04/2020 Cancer Staging:Clinical stage from 01/28/2020:Stage III(cT2, cN1, cM0, p16-) - Signed by Sher Xiong MD PhD on 02/10/2020 Assessment & Plan (04/11/2021 12:15 PM SHELL ASSEMBLER): Dx in 01/2020 w/ stage III disease, [...] onc Assessment & Plan (04/05/2021 9:30 PM SHELL ASSEMBLER): Dx in 01/2020 w/ stage III disease, [...] (01/21/2020): Added automatically from request for surgery [id number] Benign prostate hyperplasia 12/04/2019 Hypercholesteremia 12/04/2019 Insomnia [...] 11/09/19 Assessment & Plan (04/11/2021 12:15 PM SHELL ASSEMBLER): Per RD note Dyspnea on exertion 04/05/2021 04/11/19 Assessment & Plan (04/05/2021 9:12 PM SHELL ASSEMBLER): Due to large pericardial effusion w/ cardiac tamponade physiology, multifocal pneumonia, new RUL PE (despite eliquis) in addition to severe emphysema and metastatic NSCLC. P/w dyspnea on exertion that started on Monday and has progressively worsened. Presented to [facility] ED (CBC, CMP, pro-BNP, Troponin, CT [...] on Zosyn for multifocal pneumonia. Will need ASBESTOS CLOTH INSPECTOR eval due to concern for aspiration. - Cardio-oncology consulted for pericardiocentesis, will be done tomorrow AM as his last dose of Eliquis was on 04/04 in AM. - Hold off on therapeutic AC as INR is 2, and he is planned for pericardiocentesis. Multifocal pneumonia 04/05/2021 022 Assessment & Plan (04/05/2021 9:19 PM SHELL ASSEMBLER): CT chest (04/05) at OSH re-read by our radiologists showed multifocal pneumonia, likely due to aspiration. - As per above, RVP, sputum cx, started zosyn and will need ASBESTOS CLOTH INSPECTOR eval once he is more stable. Non-small cell lung cancer 04/05/2021 0 05/21/2021 Assessment & Plan (04/11/2021 12:15 PM SHELL ASSEMBLER): Dx in 08/2007 w/ stage I disease [...] onc Assessment & Plan (04/05/2021 9:30 PM SHELL ASSEMBLER): Dx in 08/2007 w/ stage I disease [...]
[2024-08-20 19:02] LABS: Hematocrit 37.9 % (42.0-52.0); Hemoglobin 10.9 g/dL (14.0-18.0); Immature Granulocyte Percent A 0.3 % (0-0.5); Lymphocytes Absolute Auto 0.65 K/mm3 (0.9-3.2); Mean Corpuscular HGB Conc 28.8 g/dl (32-36); Mean Corpuscular Hemoglobin 21.0 pg (26-34); Mean Corpuscular Volume 73.0 fl (80-100); Nucleated Red Blood Cells Absolute Auto 0.000 K/mm3 (0.0-0.012); Nucleated Red Blood Cells Perc 0.0 % (0.0-0.2); Platelet Count Result 289 k/mm3 (150-375); Red Blood Count 5.19 M/mm3 (4.6-6.20); White Blood Count 13.4 K/mm3 (4.5-10.0)
[2024-08-20] MEDS: ACETAMINOPHEN 325 MG TABLET 650 MG PO (19:02)
[2024-08-20] MEDS: LIDOCAINE/PRILOCAINE CREAM 2.5-2.5% TUBE 1 EACH TOPICAL (19:03)
[2024-08-20 19:18] LABS: Alanine Aminotransferase 15 U/L (6-50); Albumin Level 3.3 g/dL (3.5-5.1); Alkaline Phosphatase 47 U/L (38-126); Anion Gap 4 mmol/L (4-12); Aspartate Amino Transferase 25 U/L (17-59); Bilirubin,Total 0.5 mg/dL (0.2-1.3); Blood Urea Nitrogen 13 mg/dL (9-20); Calcium 8.8 mg/dL (8.4-10.2); Carbon Dioxide 30 mmol/L (22-30); Chloride 103 mmol/L (98-107); Estimated Glomerular Filt Rate > 60; Glucose 85 mg/dL (65-110); Potassium 4.1 mmol/L (3.4-5.0); Sodium 137 mmol/L (137-145); Total Protein 6.5 g/dL (6.3-8.2)
[2024-08-20 19:21] LABS: Band Neutrophils Percent 0 % (0-6)
[2024-08-20 19:22] LABS: Anisocytosis 1+; Hypochromasia 1+; Ovalocytes 1+; Schistocytes None Seen
[2024-08-20 19:28] LABS: Influenza A QL RT-PCR Negative (Negative); Influenza B QL RT-PCR Negative (Negative); RSV RNA, RT-PCR Negative (Negative); SARS-CoV-2 RNA PCR Negative (Negative)
--- NOTE | 2024-08-20 19:51 | ED.GENADULT ---
HPI - General Adult General Chief complaint: Shortness of Breath/Dyspnea Stated complaint: SOB with exertion Time Seen by Provider: 08/20/24 17:28 History of Present Illness HPI narrative: Patient is an 84-year-old male who presents ER with shortness of breath. It began today after lunch. It has progressed. It is associated with new productive cough of yellow sputum. He is febrile here. No increased oxygen requirement and he chronically wears 2 L of oxygen baseline. No chest pain. Related Data Home Medications ?Medication ?Instructions ?Recorded ?Confirmed ?Last Taken ?Type lidocaine-prilocaine 2.5 %-2.5 % 1 applic topical ONCE PRN for 01/09/19 07/24/24 07/21/24 History topical cream ramona cath during chemo tamsulosin 0.4 mg capsule 0.4 mg PO DAILY 01/23/19 07/24/24 07/22/24 08:00 History 0.4 mg finasteride 5 mg tablet 5 mg PO DAILY 05/27/20 07/24/24 07/22/24 08:00 History 5 mg gabapentin 100 mg capsule 100 mg PO Q12H 07/01/20 07/24/24 07/22/24 21:00 History 100 mg dexamethasone 4 mg tablet 8 mg PO DAILY PRN chemo 10/14/20 07/24/24 Unknown History Eliquis 5 mg PO BID 04/04/21 07/24/24 07/22/24 20:00 History 5 mg cholecalciferol (vitamin D3) 50 50 mcg PO DAILY 04/05/22 07/24/24 07/22/24 09:00 History mcg (2,000 unit) capsule 50 mcg dapagliflozin propanediol 10 mg 10 mg PO DAILY 07/24/23 07/24/24 07/22/24 09:00 History tablet (Farxiga) 10 mg spironolactone 25 mg tablet 25 mg PO .QOD 09/26/23 07/24/24 07/22/24 08:00 History 25 mg metoprolol succinate 25 mg 12.5 mg PO DAILY 02/06/24 07/24/24 07/22/24 08:00 History tablet,extended release 24 hr 12.5 mg cyanocobalamin (vitamin B-12) 1,000 mcg PO DAILY 07/16/24 07/24/24 07/22/24 09:00 History 1,000 mcg tablet (Vitamin B-12) 1,000 mcg folic acid 400 mcg tablet 400 mcg PO DAILY 07/16/24 07/24/24 07/22/24 21:00 History 400 mcg levothyroxine 88 mcg tablet 44 mcg PO DAILY 07/16/24 07/24/24 07/23/24 06:00 History (Synthroid) 44 mcg acetaminophen 325 mg tablet 325 mg PO Q6H PRN pain 07/18/24 07/24/24 07/22/24 09:00 History (Tactinal) dutasteride 0.5 mg capsule 0.5 mg PO .daily 07/18/24 07/24/24 07/22/24 08:00 History 0.5 mg ferrous sulfate 325 mg (65 mg 325 mg PO BID 07/23/24 07/24/24 07/22/24 08:00 History iron) tablet,delayed release 325 mg Allergies Allergy/AdvReac Type Severity Reaction Status Date / Time No Known Allergies Allergy Verified 08/20/24 17:26 Review of Systems Review of Systems: All systems reviewed & are unremarkable except as noted in HPI and below Constitutional: Constitutional: Reports no additional constitutional complaints Cardiovascular: Cardiovascular: Reports no additional cardiovascular complaints Respiratory: Respiratory: Reports no additional respiratory complaints Gastrointestinal: Gastrointestinal: Reports no additional gastrointestinal complaints Neurologic: Reports system reviewed and no additional complaints, except as documented [facility] Past Medical History Medical History (Updated 08/20/24 @ 21:51 by Chidi Haque MD) Cancer of lung, throat, head, neck and tongue Occult blood in stools Low hemoglobin Chronic obstructive pulmonary disease, unspecified Arthritis Right groin pain Head and neck cancer Heart failure with preserved ejection fraction Encounter for Medicare annual wellness exam [place] (dyspnea on exertion) Lateral epicondylitis of right elbow BMI 21.0-21.9, adult Right leg pain Hypothyroidism (acquired) Dyspnea Injury of lip Vitamin D deficiency Borderline abnormal TFTs Palpitations Peripheral neuropathy Depression PAC (premature atrial contraction) SVT (supraventricular tachycardia) Ectopic beats Dry mouth BMI 23.0-23.9, adult Follow up BMI 22.0-22.9, adult Constipation Urinary retention BMI 24.0-24.9, adult Squamous cell cancer of tongue Metastatic lung cancer (metastasis from lung to other site) Anxiety BMI 26.0-26.9,adult Dysphagia Cellulitis Thrush Odynophagia Chronic sore throat Encounter for routine adult health examination with abnormal findings BMI 27.0-27.9,adult Essential (primary) hypertension History of tobacco use Hx of cancer of lung Malignant neoplasm of hilus of lung Pulmonary emphysema Insomnia Pedal edema Hyperlipidemia Benign essential hypertension Encounter for routine adult health examination without abnormal findings 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00 Smoking status: Former smoker Tobacco type: cigarettes Second hand tobacco smoke exposure: No Smoking end date: 07/08/07 Additional smoking assessment comments: quit 2007 Alcohol intake: former Alcohol use details: None since 1995 Substance use: never Substance use type: does not use Do You Feel Safe in your Home?: Yes Lack of Transportation: No Lack of Food: Never True Current Housing: I Have Housing Concerned About Future Housing: No Difficulty Paying Gas/Electric Bills: No Difficulty Paying for Meds: No Currently Unemployed: No Education: Master's Degree or Higher Difficulty w/ Childcare or Family Care: No Living arrangements: with family Gender identity (if verbalized by the patient): Male Spiritual care concerns: Yes Agree to blood products: Yes Exam Narrative: GENERAL: Chronically ill-appearing, well-nourished, and in no acute distress. HEAD: Normocephalic, atraumatic. ENT: Mucous membranes moist. NECK: Supple. CHEST: Diminished lung sounds on the right posteriorly, clear on left. No respiratory distress. HEART: Regular rate and rhythm. Normal peripheral pulses. ABDOMEN: Soft, nontender, nondistended. EXTREMITIES: Normal range of motion. 3+ edema. SKIN: Warm, dry, no rash. NEURO: Alert and oriented x3. PSYCH: Normal mood and affect. Course Course Emergency Course: Admit to hospitalist service for pneumonia. Azithromycin and ceftriaxone ordered/given. Blood cultured. Vital Signs Vital signs: Vital Signs Temperature 100.7 F H 08/20/24 17:19 Pulse Rate 101 H 08/20/24 17:19 Respiratory Rate 20 08/20/24 17:19 Blood Pressure 130/71 08/20/24 17:19 Pulse Oximetry 96 08/20/24 17:19 Oxygen Delivery Nasal Cannula 08/20/24 17:19 Oxygen Flow Rate 2 08/20/24 17:19 Temperature 99.2 F 08/20/24 20:05 Pulse Rate 87 08/20/24 21:16 Respiratory Rate 20 08/20/24 21:16 Blood Pressure 110/72 08/20/24 21:16 Pulse Oximetry 96 08/20/24 21:16 Oxygen Delivery Nasal Cannula 08/20/24 17:26 Oxygen Flow Rate 2 08/20/24 17:26 Medical Decision Making Vital Signs Vital Signs: Vital Signs Temperature 100.7 F H 08/20/24 17:19 Pulse Rate 101 H 08/20/24 17:19 Respiratory Rate 20 08/20/24 17:19 Blood Pressure 130/71 08/20/24 17:19 Pulse Oximetry 96 08/20/24 17:19 Oxygen Delivery Nasal Cannula 08/20/24 17:19 Oxygen Flow Rate 2 08/20/24 17:19 Temperature 99.2 F 08/20/24 20:05 Pulse Rate 87 08/20/24 21:16 Respiratory Rate 20 08/20/24 21:16 Blood Pressure 110/72 08/20/24 21:16 Pulse Oximetry 96 08/20/24 21:16 Oxygen Delivery Nasal Cannula 08/20/24 17:26 Oxygen Flow Rate 2 08/20/24 17:26 Lab Data 08/20/24 18:57 08/20/24 18:57 Labs: Lab Results 08/20/24 08/20/24 Range/Units 18:41 18:57 WBC 13.4 H (4.5-10.0) K/mm3 RBC 5.19 (4.6-6.20) M/mm3 Hgb 10.9 L (14.0-18.0) g/dL Hct 37.9 L (42.0-52.0) % MCV 73.0 L (80-100) fl MCH 21.0 L (26-34) pg MCHC 28.8 L (32-36) g/dl RDW 26.5 H (11.5-14.5) % Plt Count 289 (150-375) k/mm3 MPV 10.1 (7.4-10.4) fl Immature Gran % (Auto) 0.3 (0-0.5) % Neut % (Auto) 86.0 H (45.5-73.1) % Lymph % (Auto) 4.9 L (18.3-44.2) % [place] % (Auto) 8.7 H (2.6-8.5) % Eos % (Auto) 0.0 (0-4.4) % Baso % (Auto) 0.1 L (0.2-1.2) % Lymph # (Auto) 0.65 L (0.9-3.2) K/mm3 [place] # (Auto) 1.2 H (0.1-0.6) K/mm3 Eos # (Auto) 0.0 (0-0.3) K/mm3 Baso # (Auto) 0.0 (0.0-0.1) K/mm3 Abs Immat Gran (auto) 0.04 H (0.00-0.031) K/mm3 Absolute Neuts (auto) 11.5 H (1.3-6.7) K/mm3 Absolute Nucleated RBC 0.000 (0.0-0.012) K/mm3 Band Neutrophils % 0 (0-6) % Nucleated RBC % 0.0 (0.0-0.2) % Platelet Estimate Adequate (Adequate) Hypochromasia 1+ Anisocytosis 1+ Ovalocytes 1+ Schistocytes None seen Sodium 137 (137-145) mmol/L Potassium 4.1 (3.4-5.0) mmol/L Chloride 103 (98-107) mmol/L Carbon Dioxide 30 (22-30) mmol/L Anion Gap 4 (4-12) mmol/L BUN 13 D (9-20) mg/dL Creatinine 1.07 (0.7-1.3) mg/dL Estim Creat Clear Calc Not Reportable Estimated GFR > 60 (59 - ) Glucose 85 (65-110) mg/dL Calcium 8.8 (8.4-10.2) mg/dL Total Bilirubin 0.5 (0.2-1.3) mg/dL AST 25 (17-59) U/L ALT 15 (6-50) U/L Alkaline Phosphatase 47 (38-126) U/L Total Protein 6.5 (6.3-8.2) g/dL Albumin 3.3 L (3.5-5.1) g/dL Influenza A (RT-PCR) Negative (Negative) Influenza B (RT-PCR) Negative (Negative) RSV (RT-PCR) Negative (Negative) SARS-CoV-2 RNA (RT-PCR) Negative (Negative) Imaging Data Radiologist's impression: ITS Impressions Chest X-Ray 08/20/24 18:34 IMPRESSION: 1. Emphysema with increasing opacities in the bilateral lower lung zones which could represent pneumonia or mild pulmonary edema. 2. 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 Discharge Plan Discharge Clinical Impression: Pneumonia Patient Disposition: Still a Patient Condition: Stable
[2024-08-20 20:05] VITALS: BP 110/53; PULSE 77; RESP 14; TEMP 37.3; O2SAT 98
[2024-08-20] MEDS: cefTRIAXone 1 GM in SODIUM CHLORIDE 0.9% IV 50 ML 100 ML IVPB (21:12)
[2024-08-20 21:16] VITALS: BP 110/72; PULSE 87; RESP 20; O2SAT 96
--- NOTE | 2024-08-20 22:12 | PM.IMHP ---
H&P: HPI History of Present Illness Date/Time: 08/20/24 22:12 Chief Complaint: Shortness of breath Narrative: 84-year-old male with past medical history heart failure with preserved ejection fraction, COPD, AFib with RVR, prior tobacco abuse, lung cancer, BPH, hypertension, hyperlipidemia, hypothyroidism, chronic anemia, chronic respiratory failure with 2 L nasal cannula. Recently discharged from [facility] on 08/06/2024 due to COPD exacerbation. He is a new resident of [facility]. Presents to [facility] on 08/20/2024 with shortness of breath beginning after lunch. He also has a chronic cough with mucus production but it is worse now with yellow sputum. ER evaluation revealed temperature 100.7? F, saturating well on 2 L nasal cannula. White blood cell count 13.4, hemoglobin 10.9, platelet 289, serum creatinine 1.07, quad viral screen negative, chest x-ray with bilateral lower lung opacities in volume loss in left hemithorax with paramediastinal scarring in the upper lung zone. He was given ceftriaxone and azithromycin, acetaminophen. Review of Systems Review of Systems: All systems reviewed & are unremarkable except as noted in HPI and below (Subjective/HPI) [facility] Past Medical History Medical History (Updated 08/20/24 @ 22:18 by Mercedes Choudhury MD) Cancer of lung, throat, head, neck and tongue Occult blood in stools Low hemoglobin Chronic obstructive pulmonary disease, unspecified Arthritis Right groin pain Head and neck cancer Heart failure with preserved ejection fraction Encounter for Medicare annual wellness exam BEASLEY (dyspnea on exertion) Lateral epicondylitis of right elbow BMI 21.0-21.9, adult Right leg pain Hypothyroidism (acquired) Dyspnea Injury of lip Vitamin D deficiency Borderline abnormal TFTs Palpitations Peripheral neuropathy Depression PAC (premature atrial contraction) SVT (supraventricular tachycardia) Ectopic beats Dry mouth BMI 23.0-23.9, adult Follow up BMI 22.0-22.9, adult Constipation Urinary retention BMI 24.0-24.9, adult Squamous cell cancer of tongue Metastatic lung cancer (metastasis from lung to other site) Anxiety BMI 26.0-26.9,adult Dysphagia Cellulitis Thrush Odynophagia Chronic sore throat Encounter for routine adult health examination with abnormal findings BMI 27.0-27.9,adult Essential (primary) hypertension History of tobacco use Hx of cancer of lung Malignant neoplasm of hilus of lung Pulmonary emphysema Insomnia Pedal edema Hyperlipidemia Benign essential hypertension Encounter for routine adult health examination without abnormal findings 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00 Smoking status: Former smoker Tobacco type: cigarettes Second hand tobacco smoke exposure: No Smoking end date: 07/08/07 Additional smoking assessment comments: quit 2007 Alcohol intake: former Alcohol use details: None since 1995 Substance use: never Substance use type: does not use Do You Feel Safe in your Home?: Yes Lack of Transportation: No Lack of Food: Never True Current Housing: I Have Housing Concerned About Future Housing: No Difficulty Paying Gas/Electric Bills: No Difficulty Paying for Meds: No Currently Unemployed: No Education: Master's Degree or Higher Difficulty w/ Childcare or Family Care: No Living arrangements: with family Gender identity (if verbalized by the patient): Male Spiritual care concerns: Yes Agree to blood products: Yes Meds Home Medications and Allergies Home Medications ?Medication ?Instructions ?Recorded ?Confirmed ?Type lidocaine-prilocaine 2.5 %-2.5 % 1 applic topical ONCE PRN for 01/09/19 07/24/24 History topical cream ramona cath during chemo tamsulosin 0.4 mg capsule 0.4 mg PO DAILY 01/23/19 07/24/24 History finasteride 5 mg tablet 5 mg PO DAILY 05/27/20 07/24/24 History gabapentin 100 mg capsule 100 mg PO Q12H 07/01/20 07/24/24 History dexamethasone 4 mg tablet 8 mg PO DAILY PRN chemo 10/14/20 07/24/24 History Eliquis 5 mg PO BID 04/04/21 07/24/24 History cholecalciferol (vitamin D3) 50 50 mcg PO DAILY 04/05/22 07/24/24 History mcg (2,000 unit) capsule dapagliflozin propanediol 10 mg 10 mg PO DAILY 07/24/23 07/24/24 History tablet (Farxiga) spironolactone 25 mg tablet 25 mg PO .QOD 09/26/23 07/24/24 History Nebulizer Machine #1 device 12/20/23 07/24/24 Rx furosemide 20 mg tablet 10 mg (1/2 x 20 mg) PO QAM #90 tabs 01/08/24 07/24/24 Rx albuterol sulfate 90 mcg/actuation See Rx Instructions .Route 01/11/24 07/24/24 Rx aerosol inhaler .COMPLEX #51 grams metoprolol succinate 25 mg 12.5 mg PO DAILY 02/06/24 07/24/24 History tablet,extended release 24 hr pravastatin 40 mg tablet See Rx Instructions .Route 03/08/24 07/24/24 Rx .COMPLEX #90 tabs albuterol sulfate 2.5 mg/3 mL 2.5 mg (3 mL) inhalation Q4-6H PRN 04/22/24 07/24/24 Rx (0.083 %) solution for nebulization shortness of breath or wheezing #90 mL fluticasone fur. 100 mcg-umeclid See Rx Instructions .Route 07/15/24 07/24/24 Rx 62.5 mcg-vilant 25 mcg .COMPLEX #180 grams inhalat.powder (Trelegy Ellipta) cyanocobalamin (vitamin B-12) 1,000 mcg PO DAILY 07/16/24 07/24/24 History 1,000 mcg tablet (Vitamin B-12) folic acid 400 mcg tablet 400 mcg PO DAILY 07/16/24 07/24/24 History levothyroxine 88 mcg tablet 44 mcg PO DAILY 07/16/24 07/24/24 History (Synthroid) acetaminophen 325 mg tablet 325 mg PO Q6H PRN pain 07/18/24 07/24/24 History (Tactinal) dutasteride 0.5 mg capsule 0.5 mg PO .daily 07/18/24 07/24/24 History ferrous sulfate 325 mg (65 mg 325 mg PO BID 07/23/24 07/24/24 History iron) tablet,delayed release sertraline 50 mg tablet (Zoloft) 50 mg PO DAILY #30 tabs 08/19/24 Rx Allergies Allergy/AdvReac Type Severity Reaction Status Date / Time No Known Allergies Allergy Verified 08/20/24 17:26 Vital Signs Vital Signs - 24 hr 08/20/24 17:19 08/20/24 17:26 08/20/24 20:05 Temperature 100.7 F H 99.2 F Pulse Rate 101 H 77 Respiratory Rate 20 14 Blood Pressure 130/71 110/53 L Pulse Oximetry 96 93 98 Oxygen Delivery Nasal Cannula Nasal Cannula Oxygen Flow Rate 2 2 08/20/24 21:16 Temperature Pulse Rate 87 Respiratory Rate 20 Blood Pressure 110/72 Pulse Oximetry 96 Oxygen Delivery Oxygen Flow Rate Exam Const: General: comfortable and no acute distress HENMT: Mouth: Yes moist mucous membranes Eyes: Pupils: Equal, round and reactive pupils present Neck: Neck: supple Resp: Effort & Inspection: normal respiratory effort Other: Bilateral rhonchi Cardio: Rate: regular rate Rhythm: regular rhythm Heart sounds: no gallops, no murmurs and no rubs GI: Inspection: non-distended GI Palp: Yes Soft to palpation Neuro: Motor exam (neuro): 5/5 motor strength present throughout Extrem: General: edema Other: 3+ pitting edema bilateral lower extremities H&P: Results Labs Labs: Short CBC 08/20/24 Range/Units 18:57 WBC 13.4 H (4.5-10.0) K/mm3 Hgb 10.9 L (14.0-18.0) g/dL Hct 37.9 L (42.0-52.0) % Plt Count 289 (150-375) k/mm3 BMP 08/20/24 18:57 Sodium 137 Potassium 4.1 Chloride 103 Carbon Dioxide 30 BUN 13 D Creatinine 1.07 Glucose 85 Calcium 8.8 Liver Function 08/20/24 Range/Units 18:57 Total Bilirubin 0.5 (0.2-1.3) mg/dL AST 25 (17-59) U/L ALT 15 (6-50) U/L Alkaline Phosphatase 47 (38-126) U/L Albumin 3.3 L (3.5-5.1) g/dL Assessment and Plan Assessment and plan (1) Benign essential hypertension: Code(s): I10 - Essential (primary) hypertension Status: Acute (2) Chronic anticoagulation: Code(s): Z79.01 - [facility] (current) use of anticoagulants Status: Acute (3) Chronic obstructive pulmonary disease, unspecified: Qualifiers: COPD type: unspecified COPD Qualified Code(s): J44.9 - Chronic obstructive pulmonary disease, unspecified Code(s): J44.9 - Chronic obstructive pulmonary disease, unspecified Status: Acute (4) Pneumonia: Code(s): J18.9 - Pneumonia, unspecified organism Status: Acute (5) Fever: Code(s): R50.9 - Fever, unspecified Status: Acute (6) Shortness of breath: Code(s): R06.02 - Shortness of breath Status: Acute Plan 84-year-old male with past medical history heart failure with preserved ejection fraction, COPD, AFib with RVR, prior tobacco abuse, lung cancer, BPH, hypertension, hyperlipidemia, hypothyroidism, chronic anemia, chronic respiratory failure with 2 L nasal cannula. Recently discharged from [facility] on 08/06/2024 due to COPD exacerbation. He is a new resident of [facility]. Presents to [facility] on 08/20/2024 with shortness of breath beginning after lunch. He also has a chronic cough with mucus production but it is worse now with yellow sputum. ER evaluation revealed temperature 100.7? F, saturating well on 2 L nasal cannula. White blood cell count 13.4, hemoglobin 10.9, platelet 289, serum creatinine 1.07, quad viral screen negative, chest x-ray with bilateral lower lung opacities in volume loss in left hemithorax with paramediastinal scarring in the upper lung zone. He was given ceftriaxone and azithromycin, acetaminophen. ----- Community-acquired pneumonia, likely bacterial Sepsis without shock as evidence by pneumonia fever and leukocytosis -low-grade fever. Continue to monitor -leukocytosis. Continue to trend -pending sputum and blood cultures, Legionella, mycoplasma, pneumococcal antigen -Tylenol p.r.n. -copious upper airway congestion. Start guaifenesin. 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 Heart healthy diet, intake/output, daily weights. Full code. Saline lock IV. Patient resides at [facility] Hospitalist MIPS Advance Care Plan I have confirmed that the patient's Advanced Care Plan is present, code status is documented, or surrogate decision maker is listed in patient medical record.: Yes Medication Reconciliation I have utilized all available resources to obtain, update and review the patients current medications (includes all prescriptions, OTC, herbals, cannabis, and nutritional supplements).: Yes
[2024-08-20] MEDS: AZITHROMYCIN IV 500 MG in SODIUM CHLORIDE 0.9% IV 250 ML IVPB (22:15)
[2024-08-20 22:35] VITALS: BMI 22.6
[2024-08-21] VITALS (11 sets, daily range): BP systolic 95–127; BP diastolic 40–70; PULSE 61–108; RESP 16–24; TEMP 36.4–36.9; O2SAT 90–97
[2024-08-21] MEDS: IPRATROPIUM 0.5 MG/ALBUTEROL SULFATE 2.5 MG AMPUL.NEB 3 ML INHALATION ×2 (03:01→13:40)
[2024-08-21] MEDS: HYDROcodone/acetaminophen (*CRX) 5-325 MG TABLET 1 TAB PO ×2 (03:03→13:38)
[2024-08-21] MEDS: LEVOTHYROXINE SODIUM PO (06:06)
[2024-08-21 06:12] LABS: Hematocrit 32.6 % (42.0-52.0); Hemoglobin 9.4 g/dL (14.0-18.0); Immature Granulocyte Percent A 0.5 % (0-0.5); Lymphocytes Absolute Auto 0.90 K/mm3 (0.9-3.2); Mean Corpuscular HGB Conc 28.8 g/dl (32-36); Mean Corpuscular Hemoglobin 21.3 pg (26-34); Mean Corpuscular Volume 73.8 fl (80-100); Nucleated Red Blood Cells Absolute Auto 0.000 K/mm3 (0.0-0.012); Nucleated Red Blood Cells Perc 0.0 % (0.0-0.2); Platelet Count Result 214 k/mm3 (150-375); Red Blood Count 4.42 M/mm3 (4.6-6.20); White Blood Count 8.7 K/mm3 (4.5-10.0)
[2024-08-21 06:48] LABS: Anion Gap 1 mmol/L (4-12); Blood Urea Nitrogen 13 mg/dL (9-20); Calcium 8.4 mg/dL (8.4-10.2); Carbon Dioxide 32 mmol/L (22-30); Chloride 103 mmol/L (98-107); Estimated CRCL calculation 44 ml/min; Estimated Glomerular Filt Rate > 60; Glucose 70 mg/dL (65-110); Magnesium 2.2 mg/dL (1.6-2.3); Potassium 3.9 mmol/L (3.4-5.0); Sodium 136 mmol/L (137-145)
[2024-08-21 07:04] LABS: Anisocytosis 3+; Hypochromasia 1+; Ovalocytes 1+; Schistocytes None Seen
[2024-08-21] MEDS: APIXABAN 5 MG TABLET BY MOUTH ×2 (09:35→20:25)
[2024-08-21] MEDS: SPIRONOLACTONE 25 MG TABLET PO (09:35)
[2024-08-21] MEDS: SERTRALINE HCL 50 MG TABLET PO (09:35)
[2024-08-21] MEDS: guaiFENesin 12 HR 600 MG TABCR 1200 MG PO ×2 (09:36→20:25)
[2024-08-21] MEDS: TAMSULOSIN HCL 0.4 MG CAPSULE PO (09:36)
[2024-08-21] MEDS: FUROSEMIDE 10 MG TABLET PO (09:36)
[2024-08-21] MEDS: FOLIC ACID 0.4 MG TABLET PO (09:36)
[2024-08-21] MEDS: GABAPENTIN 100 MG CAPSULE PO ×2 (09:37→20:25)
[2024-08-21] MEDS: FINASTERIDE 5 MG TABLET PO (09:37)
[2024-08-21] MEDS: DUTASTERIDE 0.5 MG CAPSULE PO (09:37)
[2024-08-21] MEDS: PRAVASTATIN SODIUM 20 MG TABLET BY MOUTH (09:38)
[2024-08-21] MEDS: METOPROLOL SUCCINATE EXT REL 12.5 MG TABCR PO (09:43)
--- NOTE | 2024-08-21 12:23 | P.PNIM_ITS ---
Progress Note: A&P Assessment and Plan (1) Benign essential hypertension: Code(s): I10 - Essential (primary) hypertension Status: Acute (2) Chronic anticoagulation: Code(s): Z79.01 - correction (current) use of anticoagulants Status: Acute (3) Chronic obstructive pulmonary disease, unspecified: Qualifiers: COPD type: unspecified COPD Qualified Code(s): J44.9 - Chronic obstructive pulmonary disease, unspecified Code(s): J44.9 - Chronic obstructive pulmonary disease, unspecified Status: Acute (4) Pneumonia: Code(s): J18.9 - Pneumonia, unspecified organism Status: Acute (5) Fever: Code(s): R50.9 - Fever, unspecified Status: Acute (6) Shortness of breath: Code(s): R06.02 - Shortness of breath Status: Acute Plan 84-year-old male with past medical history heart failure with preserved ejection fraction, COPD, AFib with RVR, prior tobacco abuse, lung cancer, BPH, hypertension, hyperlipidemia, hypothyroidism, chronic anemia, chronic respiratory failure with 2 L nasal cannula. Recently discharged from [facility] on 08/06/2024 due to COPD exacerbation. He is a new resident of [facility]. Presents to [facility] on 08/20/2024 with shortness of breath beginning after lunch. He also has a chronic cough with mucus production but it is worse now with yellow sputum. ER evaluation revealed temperature 100.7? F, saturating well on 2 L nasal cannula. White blood cell count 13.4, hemoglobin 10.9, platelet 289, serum creatinine 1.07, quad viral screen negative, chest x-ray with bilateral lower lung opacities in volume loss in left hemithorax with paramediastinal scarring in the upper lung zone. He was given ceftriaxone and azithromycin, acetaminophen. ----- Community-acquired pneumonia, likely bacterial Sepsis without shock as evidence by pneumonia fever and leukocytosis -low-grade fever. Continue to monitor -leukocytosis. Continue to trend -pending sputum and blood cultures, Legionella, mycoplasma, pneumococcal antigen -Tylenol p.r.n. -copious upper airway congestion. Start guaifenesin. Chest physiotherapy Resume LINEN CONTROLLER Eliquis Lasix. Heart healthy diet, intake/output, daily weights. Full code. Saline lock IV. Patient resides at [facility] 08/21 vest therapy ordered IS, ambulation- pt/ot ordered will give lasix 40 mg iv x 1 as BLE edema noted, then leg elevation and acewrap prn-discussed with RN continue antibiotics Time Spent With Patient Time with patient: 25 - 35 minutes Subjective Date/time seen: 08/21/24 12:23 Interval history: 84-year-old male with past medical history heart failure with preserved ejection fraction, COPD, AFib with RVR, prior tobacco abuse, lung cancer, BPH, hypertension, hyperlipidemia, hypothyroidism, chronic anemia, chronic respiratory failure with 2 L nasal cannula. Recently discharged from [facility] on 08/06/2024 due to COPD exacerbation. He is a new resident of [facility]. Presents to [facility] on 08/20/2024 with shortness of breath beginning after lunch. He also has a chronic cough with mucus production but it is worse now with yellow sputum. ER evaluation revealed temperature 100.7? F, saturating well on 2 L nasal cannula. White blood cell count 13.4, hemoglobin 10.9, platelet 289, serum creatinine 1.07, quad viral screen negative, chest x-ray with bilateral lower lung opacities in volume loss in left hemithorax with paramediastinal scarring in the upper lung zone. He was given ceftriaxone and azithromycin, acetaminophen. 08/21 pt is seen and examined.He is wearing oxygen at 2l-his baseline, gets very sob with any activity. Reports cough, lots of secretions. Feels very weak. German lower legs edema. Review of Systems Review of Systems: All systems reviewed & are unremarkable except as noted in HPI and below (Subjective/HPI) Exam Const: General: comfortable and no acute distress HENMT: Mouth: Yes moist mucous membranes Eyes: Pupils: Equal, round and reactive pupils present Neck: Neck: supple Resp: Effort & Inspection: normal respiratory effort Auscultation: crackles Other: Bilateral rhonchi Cardio: Rate: regular rate Rhythm: regular rhythm Heart sounds: no gallops, no murmurs and no rubs GI: Inspection: non-distended Neuro: Cranial nerves: Yes Equal, round and reactive pupils present Motor exam (neuro): 5/5 motor strength present throughout Extrem: General: edema Other: 3+ pitting edema bilateral lower extremi ties Objective Data Vital Signs Vital Signs: Vital Signs - 24 hr 08/20/24 17:19 08/20/24 17:26 08/20/24 20:05 Temperature 100.7 F H 99.2 F Pulse Rate 101 H 77 Respiratory Rate 20 14 Blood Pressure 130/71 110/53 L Pulse Oximetry 96 93 98 Oxygen Delivery Nasal Cannula Nasal Cannula Oxygen Flow Rate 2 2 08/20/24 21:16 08/21/24 00:08 08/21/24 01:08 Temperature 98.1 F Pulse Rate 87 88 Respiratory Rate 20 20 Blood Pressure 110/72 103/70 Pulse Oximetry 96 95 90 Oxygen Delivery Nasal Cannula Oxygen Flow Rate 2 08/21/24 06:00 08/21/24 07:37 08/21/24 07:46 Temperature 98.1 F Pulse Rate 61 108 H Respiratory Rate 20 Blood Pressure 95/50 L 103/53 L Pulse Oximetry 95 91 95 Oxygen Delivery Nasal Cannula Oxygen Flow Rate 2 08/21/24 08:00 08/21/24 09:43 Temperature Pulse Rate 108 H Respiratory Rate Blood Pressure Pulse Oximetry 95 Oxygen Delivery Nasal Cannula Oxygen Flow Rate 2 Intake/Output Intake/Output: Intake & Output 08/18/24 08/19/24 08/20/24 08/21/24 23:59 23:59 23:59 23:59 Intake Total 50 650 Output Total 400 Balance 50 250 Meds/Results Medications: Active Medications Generic Name Dose Route Start Last Admin Trade Name Freq PRN Reason Stop Dose Admin Acetaminophen 650 mg 08/20/24 20:29 Acetaminophen 325 Mg Tablet PO Q4H PRN Mild Pain (1-3) or Fever Hydrocodone Bitart/Acetaminophen 1 tab 08/20/24 20:29 08/21/24 03:03 Hydrocodone/Acetaminophen (*Crx) 5-325 Mg Tablet PO 1 tab Q4H PRN Administration Pain Rated 4-6 Albuterol/Ipratropium 3 ml 08/20/24 22:22 08/21/24 03:01 Ipratropium 0.5 Mg/Albuterol Sulfate 2.5 Mg Ampul.Neb 3 Ml INHALATION 3 ml Q6HRT PRN Administration sob Apixaban 5 mg 08/21/24 09:00 08/21/24 09:35 Apixaban 5 Mg Tablet BY MOUTH 5 mg Q12HR NATASHA Administration Dutasteride 0.5 mg 08/21/24 09:00 08/21/24 09:37 Dutasteride 0.5 Mg Capsule PO 0.5 mg QAM NATASHA Administration Ferrous Sulfate 325 mg 08/21/24 09:00 08/21/24 09:37 Ferrous Sulfate [address] PO Not Given BID NATASHA Finasteride 5 mg 08/21/24 09:00 08/21/24 09:37 Finasteride 5 Mg Tablet PO 5 mg DAILY NATASHA Administration Folic Acid 0.4 mg 08/21/24 09:00 08/21/24 09:36 Folic Acid 0.4 Mg Tablet PO 0.4 mg DAILY NATASHA Administration Furosemide 10 mg 08/21/24 09:00 08/21/24 09:36 Furosemide 10 Mg Tablet PO 10 mg QAM NATASHA Administration Gabapentin 100 mg 08/21/24 09:00 08/21/24 09:37 Gabapentin 100 Mg Capsule PO 100 mg Q12HR NATASHA Administration Guaifenesin 1,200 mg 08/20/24 22:25 08/21/24 09:36 Guaifenesin 12 Hr 600 Mg Tabcr PO 1,200 mg Q12HR NATASHA Administration Heparin Sodium (Beef Lung) 50 units 08/21/24 09:00 08/21/24 09:41 Heparin Flush 50 Units/5 Ml Syringe IV PUSH 50 units QAM NATASHA Administration Heparin Sodium (Beef Lung) 50 units 08/20/24 18:55 Heparin Flush 50 Units/5 Ml Syringe IV PUSH PRN PRN after intermittent infusion Heparin Sodium (Beef Lung) 50 units 08/20/24 18:55 Heparin Flush 50 Units/5 Ml Syringe IV PUSH PRN PRN after blood draws Heparin Sodium (Porcine) 500 units 08/20/24 18:55 Heparin Sodium Lock Flush 500 Units/5 Ml Syringe IV PUSH PRN PRN see comments below Ceftriaxone Sodium 1 gm/ 50 mls @ 100 mls/hr 08/21/24 21:00 Sodium Chloride IVPB Q24H NATASHA Azithromycin 500 mg/ Sodium 250 mls @ 250 mls/hr 08/21/24 22:00 Chloride IVPB Q24H NATASHA Levothyroxine Sodium 44 mcg 08/21/24 06:30 08/21/24 06:06 Levothyroxine Sodium 44 Mcg Tablet PO 44 mcg DAILY@0630 [facility] Administration Metoprolol Succinate 12.5 mg 08/21/24 09:00 08/21/24 09:43 Metoprolol Succinate Ext Rel 12.5 Mg Tabcr PO 12.5 mg DAILY NATASHA Administration Pravastatin Sodium 20 mg 08/21/24 09:00 08/21/24 09:38 Pravastatin Sodium 20 Mg Tablet BY MOUTH 20 mg DAILY [facility] Administration Promethazine HCl 12.5 mg 08/20/24 20:29 Promethazine Hcl 25 Mg/Ml Ampul IV PUSH Q6H PRN Nausea Sertraline HCl 50 mg 08/21/24 09:00 08/21/24 09:35 Sertraline Hcl 50 Mg Tablet PO 50 mg DAILY [facility] Administration Sodium Chloride 10 ml 08/20/24 22:00 08/21/24 09:34 Central Line Flush IV PUSH Not Given Q8HR [facility] Spironolactone 25 mg 08/21/24 09:00 08/21/24 09:35 Spironolactone 25 Mg Tablet PO 25 mg DAILY [facility] Administration Tamsulosin HCl 0.4 mg 08/21/24 09:00 08/21/24 09:36 Tamsulosin Hcl 0.4 Mg Capsule PO 0.4 mg DAILY NATASHA Administration Radiology Results: ITS Impressions Chest X-Ray 08/20/24 18:34 IMPRESSION: 1. Emphysema with increasing opacities in the bilateral lower lung zones which could represent pneumonia or mild pulmonary edema. 2. 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 Labs Labs: Laboratory Results - last 24 hr 08/20/24 08/20/24 08/21/24 18:41 18:57 06:02 WBC 13.4 H 8.7 RBC 5.19 4.42 L Hgb 10.9 L 9.4 L Hct 37.9 L 32.6 L MCV 73.0 L 73.8 L MCH 21.0 L 21.3 L MCHC 28.8 L 28.8 L RDW 26.5 H 26.2 H Plt Count 289 214 MPV 10.1 9.3 Immature Gran % (Auto) 0.3 0.5 Neut % (Auto) 86.0 H 77.3 H Lymph % (Auto) 4.9 L 10.3 L [place] % (Auto) 8.7 H 11.7 H Eos % (Auto) 0.0 0.1 Baso % (Auto) 0.1 L 0.1 L Lymph # (Auto) 0.65 L 0.90 [place] # (Auto) 1.2 H 1.0 H Eos # (Auto) 0.0 0.0 Baso # (Auto) 0.0 0.0 Abs Immat Gran (auto) 0.04 H 0.04 H Absolute Neuts (auto) 11.5 H 6.8 H Absolute Nucleated RBC 0.000 0.000 Band Neutrophils % 0 Not Reportable Nucleated RBC % 0.0 0.0 Platelet Estimate Adequate Adequate Hypochromasia 1+ 1+ Anisocytosis 1+ 3+ Ovalocytes 1+ 1+ Schistocytes None seen None seen Sodium 137 136 L Potassium 4.1 3.9 Chloride 103 103 Carbon Dioxide 30 32 H Anion Gap 4 1 L BUN 13 D 13 Creatinine 1.07 1.07 Estim Creat Clear Calc Not Reportable 44 Estimated GFR > 60 > 60 Glucose 85 70 Calcium 8.8 8.4 Magnesium 2.2 Total Bilirubin 0.5 AST 25 ALT 15 Alkaline Phosphatase 47 Total Protein 6.5 Albumin 3.3 L Influenza A (RT-PCR) Negative Influenza B (RT-PCR) Negative RSV (RT-PCR) Negative SARS-CoV-2 RNA (RT-PCR) Negative
[2024-08-21] MEDS: CENTRAL LINE FLUSH 10 ML IV PUSH ×2 (13:44→20:22)
[2024-08-21] MEDS: FUROSEMIDE INJ 40 MG/4 ML VIAL IV PUSH (14:39)
[2024-08-21] MEDS: cefTRIAXone 1 GM in SODIUM CHLORIDE 0.9% IV 50 ML 100 ML IVPB (20:21)
[2024-08-21] MEDS: AZITHROMYCIN IV 500 MG in SODIUM CHLORIDE 0.9% IV 250 ML IVPB (20:59)
[2024-08-22 04:21] VITALS: BP 125/62; PULSE 68; RESP 16; TEMP 36.4; O2SAT 95
[2024-08-22] MEDS: LEVOTHYROXINE SODIUM PO (06:02)
[2024-08-22] MEDS: CENTRAL LINE FLUSH 10 ML IV PUSH ×3 (06:02→21:15)
[2024-08-22 06:36] LABS: Potassium 4.0 mmol/L (3.4-5.0)
--- NOTE | 2024-08-22 07:55 | PM.IMPN ---
Progress Note: A&P Assessment and Plan (1) Benign essential hypertension: Code(s): I10 - Essential (primary) hypertension <Xenia Moses [employer] - Last Filed: 08/22/24 14:05> Status: Acute <Xenia Moses [employer] - Last Filed: 08/22/24 14:05> (2) Chronic anticoagulation: Code(s): Z79.01 - technician terminal and repeater (current) use of anticoagulants <Xenia Moses [employer] - Last Filed: 08/22/24 14:05> Status: Acute <Xenia Moses, [employer] - Last Filed: 08/22/24 14:05> (3) Chronic obstructive pulmonary disease, unspecified: Qualifiers: COPD type: unspecified COPD Qualified Code(s): J44.9 - Chronic obstructive pulmonary disease, unspecified <Xenia Moses [employer] - Last Filed: 08/22/24 14:05> Code(s): J44.9 - Chronic obstructive pulmonary disease, unspecified <Xenia Moses [employer] - Last Filed: 08/22/24 14:05> Status: Acute <Xenia Moses [employer] - Last Filed: 08/22/24 14:05> (4) Pneumonia: Code(s): J18.9 - Pneumonia, unspecified organism <Xenia Moses, [employer] - Last Filed: 08/22/24 14:05> Status: Acute <Xenia Moses, [employer] - Last Filed: 08/22/24 14:05> (5) Fever: Code(s): R50.9 - Fever, unspecified <Xenia Moses, [employer] - Last Filed: 08/22/24 14:05> Status: Acute <Xenia Moses [employer] - Last Filed: 08/22/24 14:05> (6) Shortness of breath: Code(s): R06.02 - Shortness of breath <Xenia Moses [employer] - Last Filed: 08/22/24 14:05> Status: Acute <Xenia Moses [employer] - Last Filed: 08/22/24 14:05> Assessment and Plan: 84-year-old male with past medical history heart failure with preserved ejection fraction, COPD, AFib with RVR, prior tobacco abuse, lung cancer, BPH, hypertension, hyperlipidemia, hypothyroidism, chronic anemia, chronic respiratory failure with 2 L nasal cannula. Recently discharged from [facility] on 08/06/2024 due to COPD exacerbation. He is a new resident of [facility]. Presents to [facility] on 08/20/2024 with shortness of breath beginning after lunch. He also has a chronic cough with mucus production but it is worse now with yellow sputum. ER evaluation revealed temperature 100.7? F, saturating well on 2 L nasal cannula. White blood cell count 13.4, hemoglobin 10.9, platelet 289, serum creatinine 1.07, quad viral screen negative, chest x-ray with bilateral lower lung opacities in volume loss in left hemithorax with paramediastinal scarring in the upper lung zone. He was given ceftriaxone and azithromycin, acetaminophen. ----- Community-acquired pneumonia, likely bacterial Sepsis without shock as evidence by pneumonia fever and leukocytosis -low-grade fever. Continue to monitor -leukocytosis. Continue to trend -pending sputum and blood cultures, Legionella, mycoplasma, pneumococcal antigen -Tylenol p.r.n. -copious upper airway congestion. Start guaifenesin. 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 Heart healthy diet, intake/output, daily weights. Full code. Saline lock IV. Patient resides at [facility] 08/21 vest therapy ordered IS, ambulation- pt/ot ordered will give lasix 40 mg iv x 1 as BLE edema noted, then leg elevation and acewrap prn-discussed with RN continue antibiotics <Xenia Moses, [employer] - Last Filed: 08/22/24 14:05> 84-year-old male with past medical history heart failure with preserved ejection fraction, COPD, AFib with RVR, prior tobacco abuse, lung cancer, BPH, hypertension, hyperlipidemia, hypothyroidism, chronic anemia, chronic respiratory failure with 2 L nasal cannula. Recently discharged from [facility] on 08/06/2024 due to COPD exacerbation. He is a new resident of [facility]. Presents to [facility] on 08/20/2024 with shortness of breath beginning after lunch. He also has a chronic cough with mucus production but it is worse now with yellow sputum. ER evaluation revealed temperature 100.7? F, saturating well on 2 L nasal cannula. White blood cell count 13.4, hemoglobin 10.9, platelet 289, serum creatinine 1.07, quad viral screen negative, chest x-ray with bilateral lower lung opacities in volume loss in left hemithorax with paramediastinal scarring in the upper lung zone. He was given ceftriaxone and azithromycin, acetaminophen. ----- Community-acquired pneumonia, likely bacterial Sepsis without shock as evidence by pneumonia fever and leukocytosis -low-grade fever. Continue to monitor -leukocytosis. Continue to trend -pending sputum and blood cultures, Legionella, mycoplasma, pneumococcal antigen -Tylenol p.r.n. -copious upper airway congestion. Start guaifenesin. 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 Heart healthy diet, intake/output, daily weights. Full code. Saline lock IV. Patient resides at [facility] 08/21 vest therapy ordered IS, ambulation- pt/ot ordered will give lasix 40 mg iv x 1 as BLE edema noted, then leg elevation and acewrap prn-discussed with RN continue antibiotics 08/22 Begin Vest Therapy with Respiratory Begin PT/OT Continue IS & Ambulation Continue leg elevation and jose a-wrap Continue antibiotics Orderd Flonase to aid with nasal congestion <Edgardo Murray, Student - Last Filed: 08/22/24 14:03> Time Spent With Patient Time with patient: 25 - 35 minutes <Xenia Moses APRN - Last Filed: 08/22/24 14:05> Subjective Date/time seen: 08/22/24 07:55 <Xenia Moses [employer] - Last Filed: 08/22/24 14:05> Interval history: 84-year-old male with past medical history heart failure with preserved ejection fraction, COPD, AFib with RVR, prior tobacco abuse, lung cancer, BPH, hypertension, hyperlipidemia, hypothyroidism, chronic anemia, chronic respiratory failure with 2 L nasal cannula. Recently discharged from [facility] on 08/06/2024 due to COPD exacerbation. He is a new resident of [facility]. Presents to [facility] on 08/20/2024 with shortness of breath beginning after lunch. He also has a chronic cough with mucus production but it is worse now with yellow sputum. ER evaluation revealed temperature 100.7? F, saturating well on 2 L nasal cannula. White blood cell count 13.4, hemoglobin 10.9, platelet 289, serum creatinine 1.07, quad viral screen negative, chest x-ray with bilateral lower lung opacities in volume loss in left hemithorax with paramediastinal scarring in the upper lung zone. He was given ceftriaxone and azithromycin, acetaminophen. 08/21 pt is seen and examined.He is wearing oxygen at 2l-his baseline, gets very sob with any activity. Reports cough, lots of secretions. Feels very weak. German lower legs edema. <Xenia Moses APRN - Last Filed: 08/22/24 14:05> 84-year-old male with past medical history heart failure with preserved ejection fraction, COPD, AFib with RVR, prior tobacco abuse, lung cancer, BPH, hypertension, hyperlipidemia, hypothyroidism, chronic anemia, chronic respiratory failure with 2 L nasal cannula. Recently discharged from [facility] on 08/06/2024 due to COPD exacerbation. He is a new resident of [facility]. Presents to [facility] on 08/20/2024 with shortness of breath beginning after lunch. He also has a chronic cough with mucus production but it is worse now with yellow sputum. ER evaluation revealed temperature 100.7? F, saturating well on 2 L nasal cannula. White blood cell count 13.4, hemoglobin 10.9, platelet 289, serum creatinine 1.07, quad viral screen negative, chest x-ray with bilateral lower lung opacities in volume loss in left hemithorax with paramediastinal scarring in the upper lung zone. He was given ceftriaxone and azithromycin, acetaminophen. 08/21 pt is seen and examined.He is wearing oxygen at 2l-his baseline, gets very sob with any activity. Reports cough, lots of secretions. Feels very weak. German lower legs edema. 08/22 Pt seen this morning. Feels worse than the night prior. 94% Sat on 3L NC. Reports increase coughing with production this AM compared to night prior with nasal congestion. SOB with conversation and positional changes. German lower leg edema has improved with slight elevation, Lasix IV push, & jose a-wraps, but still present. Denies chest pain, dizziness, lightheadedness, abdominal pain, chills, night sweats, vision changes, confusion, pain or abnormalities with urination and bowel movements. <Edgardo Murray, Student - Last Filed: 08/22/24 14:03> Review of Systems Review of Systems: All systems reviewed & are unremarkable except as noted in HPI and below (Subjective/HPI) <Xenia Moses APRN - Last Filed: 08/22/24 14:05> Exam Const: General: comfortable and no acute distress <Xenia Moses [employer] - Last Filed: 08/22/24 14:05> HENMT: Mouth: Yes moist mucous membranes <Xenia Moses APRN - Last Filed: 08/22/24 14:05> Eyes: Pupils: Equal, round and reactive pupils present <Xenia Moses [employer] - Last Filed: 08/22/24 14:05> Neck: Neck: supple <Xenia Moses [employer] - Last Filed: 08/22/24 14:05> Resp: Effort & Inspection: normal respiratory effort <Xenia Moses APRN - Last Filed: 08/22/24 14:05> Auscultation: crackles <Xenia Moses [employer] - Last Filed: 08/22/24 14:05> Other: Bilateral rhonchi <Xenia Moses [employer] - Last Filed: 08/22/24 14:05> Cardio: Rate: regular rate <Xenia Moses [employer] - Last Filed: 08/22/24 14:05> Rhythm: regular rhythm <Xenia Moses [employer] - Last Filed: 08/22/24 14:05> Heart sounds: no gallops, no murmurs and no rubs <Xenia Moses [employer] - Last Filed: 08/22/24 14:05> GI: Inspection: non-distended <Xenia SaranBruna Moses [employer] - Last Filed: 08/22/24 14:05> Auscultation: normal bowel sounds <Edgardo Murray Student - Last Filed: 08/22/24 14:03> Neuro: Cranial nerves: Yes Equal, round and reactive pupils present <Xenia Moses [employer] - Last Filed: 08/22/24 14:05> Motor exam (neuro): 5/5 motor strength present throughout <Xenia NoonanBruna Josué [employer] - Last Filed: 08/22/24 14:05> Extrem: General: edema <Xenia NoonanBruna Josué [employer] - Last Filed: 08/22/24 14:05> Other: 3+ pitting edema bilateral lower extremities <Xenia NoonanBruna Josué [employer] - Last Filed: 08/22/24 14:05> Other: 2+ pitting edema bilateral lower extremities <Edgardo Murray Student - Last Filed: 08/22/24 14:03> Objective Data Vital Signs Vital Signs: Vital Signs - 24 hr 08/21/24 08:00 08/21/24 09:43 08/21/24 13:41 Temperature Pulse Rate 108 H 81 Respiratory Rate 24 H Blood Pressure Pulse Oximetry 95 Oxygen Delivery Nasal Cannula Oxygen Flow Rate 2 08/21/24 13:47 08/21/24 14:00 08/21/24 20:20 Temperature 97.6 F 98.5 F Pulse Rate 79 73 62 Respiratory Rate 24 H 18 16 Blood Pressure 127/59 L 125/40 L Pulse Oximetry 94 97 Oxygen Delivery Oxygen Flow Rate 08/22/24 04:21 Temperature 97.5 F L Pulse Rate 68 Respiratory Rate 16 Blood Pressure 125/62 Pulse Oximetry 95 Oxygen Delivery Oxygen Flow Rate <Xenia Moses, [employer] - Last Filed: 08/22/24 14:05> Intake/Output Intake/Output: Intake & Output 08/19/24 08/20/24 08/21/24 08/22/24 23:59 23:59 23:59 23:59 Intake Total 50 1440 550 Output Total 1200 1100 Balance 50 240 -550 <Xenia Moses, [employer] - Last Filed: 08/22/24 14:05> Meds/Results Medications: Active Medications Generic Name Dose Route Start Last Admin Trade Name Freq PRN Reason Stop Dose Admin Acetaminophen 650 mg 08/20/24 20:29 Acetaminophen 325 Mg Tablet PO Q4H PRN Mild Pain (1-3) or Fever Hydrocodone Bitart/Acetaminophen 1 tab 08/20/24 20:29 08/21/24 13:38 Hydrocodone/Acetaminophen (*Crx) 5-325 Mg Tablet PO 1 tab Q4H PRN Administration Pain Rated 4-6 Albuterol/Ipratropium 3 ml 08/20/24 22:22 08/21/24 13:40 Ipratropium 0.5 Mg/Albuterol Sulfate 2.5 Mg Ampul.Neb 3 Ml INHALATION 3 ml Q6HRT PRN Administration sob Apixaban 5 mg 08/21/24 09:00 08/21/24 20:25 Apixaban 5 Mg Tablet BY MOUTH 5 mg Q12HR NATASHA Administration Dutasteride 0.5 mg 08/21/24 09:00 08/21/24 09:37 Dutasteride 0.5 Mg Capsule PO 0.5 mg QAM NATASHA Administration Ferrous Sulfate 325 mg 08/21/24 09:00 08/21/24 17:32 Ferrous Sulfate [address] PO Not Given BID NATASHA Finasteride 5 mg 08/21/24 09:00 08/21/24 09:37 Finasteride 5 Mg Tablet PO 5 mg DAILY NATASHA Administration Folic Acid 0.4 mg 08/21/24 09:00 08/21/24 09:36 Folic Acid 0.4 Mg Tablet PO 0.4 mg DAILY NATASHA Administration Furosemide 10 mg 08/21/24 09:00 08/21/24 09:36 Furosemide 10 Mg Tablet PO 10 mg QAM NATASHA Administration Gabapentin 100 mg 08/21/24 09:00 08/21/24 20:25 Gabapentin 100 Mg Capsule PO 100 mg Q12HR NATASHA Administration Guaifenesin 1,200 mg 08/20/24 22:25 08/21/24 20:25 Guaifenesin 12 Hr 600 Mg Tabcr PO 1,200 mg Q12HR NATASHA Administration Heparin Sodium (Beef Lung) 50 units 08/21/24 09:00 08/21/24 09:41 Heparin Flush 50 Units/5 Ml Syringe IV PUSH 50 units QAM NATASHA Administration Heparin Sodium (Beef Lung) 50 units 08/20/24 18:55 Heparin Flush 50 Units/5 Ml Syringe IV PUSH PRN PRN after intermittent infusion Heparin Sodium (Beef Lung) 50 units 08/20/24 18:55 Heparin Flush 50 Units/5 Ml Syringe IV PUSH PRN PRN after blood draws Heparin Sodium (Porcine) 500 units 08/20/24 18:55 Heparin Sodium Lock Flush 500 Units/5 Ml Syringe IV PUSH PRN PRN see comments below Ceftriaxone Sodium 1 gm/ 50 mls @ 100 mls/hr 08/21/24 21:00 08/21/24 20:21 Sodium Chloride IVPB 100 mls/hr Q24H NATASHA Administration Azithromycin 500 mg/ Sodium 250 mls @ 250 mls/hr 08/21/24 22:00 08/21/24 20:59 Chloride IVPB 250 mls/hr Q24H NATASHA Administration Levothyroxine Sodium 44 mcg 08/21/24 06:30 08/22/24 06:02 Levothyroxine Sodium 44 Mcg Tablet PO 44 mcg DAILY@0630 NATASHA Administration Metoprolol Succinate 12.5 mg 08/21/24 09:00 08/21/24 09:43 Metoprolol Succinate Ext Rel 12.5 Mg Tabcr PO 12.5 mg DAILY NATASHA Administration Pravastatin Sodium 20 mg 08/21/24 09:00 08/21/24 09:38 Pravastatin Sodium 20 Mg Tablet BY MOUTH 20 mg DAILY NATASHA Administration Promethazine HCl 12.5 mg 08/20/24 20:29 Promethazine Hcl 25 Mg/Ml Ampul IV PUSH Q6H PRN Nausea Sertraline HCl 50 mg 08/21/24 09:00 08/21/24 09:35 Sertraline Hcl 50 Mg Tablet PO 50 mg DAILY NATASHA Administration Sodium Chloride 10 ml 08/20/24 22:00 08/22/24 06:02 Central Line Flush IV PUSH 10 ml Q8HR NATASHA Administration Spironolactone 25 mg 08/21/24 09:00 08/21/24 09:35 Spironolactone 25 Mg Tablet PO 25 mg DAILY NATASHA Administration Tamsulosin HCl 0.4 mg 08/21/24 09:00 08/21/24 09:36 Tamsulosin Hcl 0.4 Mg Capsule PO 0.4 mg DAILY NATASHA Administration <Xenia Moses, [employer] - Last Filed: 08/22/24 14:05> Radiology Results: ITS Impressions Chest X-Ray 08/20/24 18:34 IMPRESSION: 1. Emphysema with increasing opacities in the bilateral lower lung zones which could represent pneumonia or mild pulmonary edema. 2. 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 <Xenia Moses [employer] - Last Filed: 08/22/24 14:05> Labs Labs: Laboratory Results - last 24 hr 08/22/24 05:54 Potassium 4.0 <Xenia Moses [employer] - Last Filed: 08/22/24 14:05>
[2024-08-22 08:00] VITALS: O2SAT 94
[2024-08-22 08:48] VITALS: O2SAT 91
[2024-08-22] MEDS: PRAVASTATIN SODIUM 20 MG TABLET BY MOUTH (09:34)
[2024-08-22] MEDS: FLUTICASONE PROPIONATE 0.05% NA SPR 16 GM BTL (*BKC) 1 SPRAY NASAL ×2 (09:34→20:33)
[2024-08-22] MEDS: APIXABAN 5 MG TABLET BY MOUTH ×2 (09:34→20:32)
[2024-08-22] MEDS: TAMSULOSIN HCL 0.4 MG CAPSULE PO (09:34)
[2024-08-22] MEDS: guaiFENesin 12 HR 600 MG TABCR 1200 MG PO ×2 (09:34→20:32)
[2024-08-22] MEDS: METOPROLOL SUCCINATE EXT REL 12.5 MG TABCR PO (09:34)
[2024-08-22] MEDS: DUTASTERIDE 0.5 MG CAPSULE PO (09:34)
[2024-08-22] MEDS: FUROSEMIDE 10 MG TABLET PO (09:35)
[2024-08-22] MEDS: FOLIC ACID 0.4 MG TABLET PO (09:35)
[2024-08-22] MEDS: SERTRALINE HCL 50 MG TABLET PO (09:35)
[2024-08-22] MEDS: GABAPENTIN 100 MG CAPSULE PO ×2 (09:35→20:32)
[2024-08-22] MEDS: FINASTERIDE 5 MG TABLET PO (09:35)
[2024-08-22] MEDS: SPIRONOLACTONE 25 MG TABLET PO (09:35)
[2024-08-22 14:00] VITALS: BP 96/67; PULSE 113; RESP 16; TEMP 36.7; O2SAT 99
[2024-08-22 20:10] VITALS: BP 135/52; PULSE 66; RESP 20; TEMP 36.8; O2SAT 99
[2024-08-22] MEDS: cefTRIAXone 1 GM in SODIUM CHLORIDE 0.9% IV 50 ML 100 ML IVPB (20:22)
[2024-08-22] MEDS: AZITHROMYCIN IV 500 MG in SODIUM CHLORIDE 0.9% IV 250 ML IVPB (21:11)
[2024-08-22 21:28] VITALS: O2SAT 98
[2024-08-23] VITALS (7 sets, daily range): BP systolic 123–136; BP diastolic 52–64; PULSE 62–112; RESP 16–20; TEMP 35.8–36.7; O2SAT 93–99
[2024-08-23] MEDS: CENTRAL LINE FLUSH 10 ML IV PUSH ×3 (05:50→21:28)
[2024-08-23] MEDS: LEVOTHYROXINE SODIUM PO (05:50)
[2024-08-23 06:06] LABS: Hematocrit 36.5 % (42.0-52.0); Hemoglobin 10.4 g/dL (14.0-18.0); Mean Corpuscular HGB Conc 28.5 g/dl (32-36); Mean Corpuscular Hemoglobin 21.2 pg (26-34); Mean Corpuscular Volume 74.5 fl (80-100); Platelet Count Result 266 k/mm3 (150-375); Red Blood Count 4.90 M/mm3 (4.6-6.20); White Blood Count 10.6 K/mm3 (4.5-10.0)
--- NOTE | 2024-08-23 07:24 | P.PNIM_ITS ---
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 <Xenia Moses PACKAGING SALES REPRESENTATIVE - Last Filed: 08/23/24 14:57> Status: Acute <Xenia Moses PACKAGING SALES REPRESENTATIVE - Last Filed: 08/23/24 14:57> (3) Chronic obstructive pulmonary disease, unspecified: Qualifiers: COPD type: unspecified COPD Qualified Code(s): J44.9 - Chronic obstructive pulmonary disease, unspecified <Xenia Moses APRN - Las t Filed: 08/23/24 14:57> Code(s): J44.9 - Chronic obstructive pulmonary disease, unspecified <Xenia Moses PACKAGING SALES REPRESENTATIVE - Last Filed: 08/23/24 14:57> Status: Acute <Xenia Moses PACKAGING SALES REPRESENTATIVE - Last Filed: 08/23/24 14:57> (4) Pneumonia: Code(s): J18.9 - Pneumonia, unspecified organism <Xenia Moses, PACKAGING SALES REPRESENTATIVE - Last Filed: 08/23/24 14:57> Status: Acute <Xenia Moses PACKAGING SALES REPRESENTATIVE - Last Filed: 08/23/24 14:57> (5) Fever: Code(s): R50.9 - Fever, unspecified <Xenia Moses PACKAGING SALES REPRESENTATIVE - Last Filed: 08/23/24 14:57> Status: Acute <Xenia Moses PACKAGING SALES REPRESENTATIVE - Last Filed: 08/23/24 14:57> (6) Shortness of breath: Code(s): R06.02 - Shortness of breath <Xenia Moses PACKAGING SALES REPRESENTATIVE - Last Filed: 08/23/24 14:57> Status: Acute <Xenia Moses PACKAGING SALES REPRESENTATIVE - Last Filed: 08/23/24 14:57> Assessment and Plan: 84-year-old male with past medical history heart failure with preserved ejection fraction, COPD, AFib with RVR, prior tobacco abuse, lung cancer, BPH, hypertension, hyperlipidemia, hypothyroidism, chronic anemia, chronic respiratory failure with 2 L nasal cannula. Recently discharged from [facility] on 08/06/2024 due to COPD exacerbation. He is a new resident of [facility]. Presents to [facility] on 08/20/2024 with shortness of breath beginning after lunch. He also has a chronic cough with mucus production but it is worse now with yellow sputum. ER evaluation revealed temperature 100.7? F, saturating well on 2 L nasal cannula. White blood cell count 13.4, hemoglobin 10.9, platelet 289, serum creatinine 1.07, quad viral screen negative, chest x-ray with bilateral lower lung opacities in volume loss in left hemithorax with paramediastinal scarring in the upper lung zone. He was given ceftriaxone and azithromycin, acetaminophen. ----- Community-acquired pneumonia, likely bacterial Sepsis without shock as evidence by pneumonia fever and leukocytosis -low-grade fever. Continue to monitor -leukocytosis. Continue to trend -pending sputum and blood cultures, Legionella, mycoplasma, pneumococcal antigen -Tylenol p.r.n. -copious upper airway congestion. Start guaifenesin. 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 Heart healthy diet, intake/output, daily weights. Full code. Saline lock IV. Patient resides at [facility] 08/21 vest therapy ordered IS, ambulation- pt/ot ordered will give lasix 40 mg iv x 1 as BLE edema noted, then leg elevation and acewrap prn-discussed with RN continue antibiotics 08/22 Begin Vest Therapy with Respiratory Begin PT/OT Continue IS & Ambulation Continue leg elevation and jose a-wrap Continue antibiotics Orderd Flonase to aid with nasal congestion <Xenia Moses, PACKAGING SALES REPRESENTATIVE - Last Filed: 08/23/24 14:57> 84-year-old male with past medical history heart failure with preserved ejection fraction, COPD, AFib with RVR, prior tobacco abuse, lung cancer, BPH, hypertension, hyperlipidemia, hypothyroidism, chronic anemia, chronic respiratory failure with 2 L nasal cannula. Recently discharged from [facility] on 08/06/2024 due to COPD exacerbation. He is a new resident of [facility]. Presents to [facility] on 08/20/2024 with shortness of breath beginning after lunch. He also has a chronic cough with mucus production but it is worse now with yellow sputum. ER evaluation revealed temperature 100.7? F, saturating well on 2 L nasal cannula. White blood cell count 13.4, hemoglobin 10.9, platelet 289, serum creatinine 1.07, quad viral screen negative, chest x-ray with bilateral lower lung opacities in volume loss in left hemithorax with paramediastinal scarring in the upper lung zone. He was given ceftriaxone and azithromycin, acetaminophen. ----- Community-acquired pneumonia, likely bacterial Sepsis without shock as evidence by pneumonia fever and leukocytosis -low-grade fever. Continue to monitor -leukocytosis. Continue to trend -pending sputum and blood cultures, Legionella, mycoplasma, pneumococcal antigen -Tylenol p.r.n. -copious upper airway congestion. Start guaifenesin. 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 Heart healthy diet, intake/output, daily weights. Full code. Saline lock IV. Patient resides at [facility] 08/21 vest therapy ordered IS, ambulation- pt/ot ordered will give lasix 40 mg iv x 1 as BLE edema noted, then leg elevation and acewrap prn-discussed with RN continue antibiotics 08/22 Begin Vest Therapy with Respiratory Begin PT/OT Continue IS & Ambulation Continue leg elevation and jose a-wrap Continue antibiotics Ordered Flonase to aid with nasal congestion 08/23 - Chest Physiotherapy ordered modified to reflect Vest Therapy. Pt yet to receive since admission. - PT/OT: decreased functional independence & mobility d/t endurance & safety. Only tolerating short distance d/t SOB. Continue benefit from PT services. - Continue Abx, IS, & ambulation - Continue leg elevation & jose a-wrap - Repeat Chest XR: no change from 08/20/22 - WBC 10.6 today, previously 13.4 on 08/20 & 8.7 on 08.21. Continue to trend. - Modify iron supplement and Miralax doses to half or every other day to manage constipation <Edgardo Murray, Student - Last Filed: 08/23/24 13:28> Time Spent With Patient Time with patient: 25 - 35 minutes <Xenia Moses, PACKAGING SALES REPRESENTATIVE - Last Filed: 08/23/24 14:57> Subjective Date/time seen: 08/23/24 07:24 <Xenia Moses PACKAGING SALES REPRESENTATIVE - Last Filed: 08/23/24 14:57> Interval history: 84-year-old male with past medical history heart failure with preserved ejection fraction, COPD, AFib with RVR, prior tobacco abuse, lung cancer, BPH, hypertension, hyperlipidemia, hypothyroidism, chronic anemia, chronic respiratory failure with 2 L nasal cannula. Recently discharged from [facility] on 08/06/2024 due to COPD exacerbation. He is a new resident of [facility]. Presents to [facility] on 08/20/2024 with shortness of breath beginning after lunch. He also has a chronic cough with mucus production but it is worse now with yellow sputum. ER evaluation revealed temperature 100.7? F, saturating well on 2 L nasal cannula. White blood cell count 13.4, hemoglobin 10.9, platelet 289, serum creatinine 1.07, quad viral screen negative, chest x-ray with bilateral lower lung opacities in volume loss in left hemithorax with paramediastinal scarring in the upper lung zone. He was given ceftriaxone and azithromycin, acetaminophen. 08/21 pt is seen and examined.He is wearing oxygen at 2l-his baseline, gets very sob with any activity. Reports cough, lots of secretions. Feels very weak. German lower legs edema. 08/22 Pt seen this morning. Feels worse than the night prior. 94% Sat on 3L NC. Reports increase coughing with production this AM compared to night prior with nasal congestion. SOB with conversation and positional changes. German lower leg edema has improved with slight elevation, Lasix IV push, & jose a-wraps, but still present. Denies chest pain, dizziness, lightheadedness, abdominal pain, chills, night sweats, vision changes, confusion, pain or abnormalities with urination and bowel movements. <Xenia Moses, PACKAGING SALES REPRESENTATIVE - Last Filed: 08/23/24 14:57> 84-year-old male with past medical history heart failure with preserved ejection fraction, COPD, AFib with RVR, prior tobacco abuse, lung cancer, BPH, hypertension, hyperlipidemia, hypothyroidism, chronic anemia, chronic respiratory failure with 2 L nasal cannula. Recently discharged from [facility] on 08/06/2024 due to COPD exacerbation. He is a new resident of [facility]. Presents to [facility] on 08/20/2024 with shortness of breath beginning after lunch. He also has a chronic cough with mucus production but it is worse now with yellow sputum. ER evaluation revealed temperature 100.7? F, saturating well on 2 L nasal cannula. White blood cell count 13.4, hemoglobin 10.9, platelet 289, serum creatinine 1.07, quad viral screen negative, chest x-ray with bilateral lower lung opacities in volume loss in left hemithorax with paramediastinal scarring in the upper lung zone. He was given ceftriaxone and azithromycin, acetaminophen. 08/21 pt is seen and examined.He is wearing oxygen at 2l-his baseline, gets very sob with any activity. Reports cough, lots of secretions. Feels very weak. German lower legs edema. 08/22 Pt seen this morning. Feels worse than the night prior. 94% Sat on 3L NC. Reports increase coughing with production this AM compared to night prior with nasal congestion. SOB with conversation and positional changes. German lower leg edema has improved with slight elevation, Lasix IV push, & jose a-wraps, but still present. Denies chest pain, dizziness, lightheadedness, abdominal pain, chills, night sweats, vision changes, confusion, pain or abnormalities with urination and bowel movements. 08/23 Pt doing well this AM. Minimal cough with production. Notes improvements in symptoms compared to prior 2 days. 93% Sat on 2L NC (pt baseline). Did temporarily require increase O2 demand after transferring to chair. German LE edema remains the same. Denies chest pain, SOB, abdominal pain, dizzines, light headedness, chills, night sweats, and urine abnormalities. Last bowel movement was 08/21/24. Patient hesitant to receive medication to aid bowel movement and does not want to take iron supplement due to constipation episode on 08/21/24. <Edgardo Murray, Student - Last Filed: 08/23/24 13:28> Review of Systems Review of Systems: All systems reviewed & are unremarkable except as noted in HPI and below (Subjective/HPI) <Xenia Moses APRN - Last Filed: 08/23/24 14:57> Exam Const: General: comfortable and no acute distress <Xenia Moses APRN - Last Filed: 08/23/24 14:57> HENMT: Mouth: Yes moist mucous membranes <Xenia Moses PACKAGING SALES REPRESENTATIVE - Last Filed: 08/23/24 14:57> Eyes: Pupils: Equal, round and reactive pupils present <Xenia Moses APRN - Last Filed: 08/23/24 14:57> Neck: Neck: supple <Xenia Moses APRN - Last Filed: 08/23/24 14:57> Resp: Effort & Inspection: normal respiratory effort <Xenia Moses APRN - Last Filed: 08/23/24 14:57> Auscultation: crackles <Xenia Moses PACKAGING SALES REPRESENTATIVE - Last Filed: 08/23/24 14:57> Other: Bilateral rhonchi <Xenia Moses PACKAGING SALES REPRESENTATIVE - Last Filed: 08/23/24 14:57> Cardio: Rate: regular rate <Xenia Moses PACKAGING SALES REPRESENTATIVE - Last Filed: 08/23/24 14:57> Rhythm: regular rhythm <Xenia Moses PACKAGING SALES REPRESENTATIVE - Last Filed: 08/23/24 14:57> Heart sounds: no gallops, no murmurs and no rubs <Xenia Moses PACKAGING SALES REPRESENTATIVE - Last Filed: 08/23/24 14:57> GI: Inspection: non-distended <Xenia Moses PACKAGING SALES REPRESENTATIVE - Last Filed: 08/23/24 14:57> Neuro: Cranial nerves: Yes Equal, round and reactive pupils present <Xenia Moses PACKAGING SALES REPRESENTATIVE - Last Filed: 08/23/24 14:57> Motor exam (neuro): 5/5 motor strength present throughout <Xenia Moses PACKAGING SALES REPRESENTATIVE - Last Filed: 08/23/24 14:57> Extrem: General: edema <Xenia Moses PACKAGING SALES REPRESENTATIVE - Last Filed: 08/23/24 14:57> Other: 3+ pitting edema bilateral lower extremi ties <Xenia Moses PACKAGING SALES REPRESENTATIVE - Last Filed: 08/23/24 14:57> Objective Data Vital Signs Vital Signs: Vital Signs - 24 hr 08/22/24 08:00 08/22/24 08:48 08/22/24 09:32 Temperature Pulse Rate Respiratory Rate Blood Pressure Pulse Oximetry 94 91 Oxygen Delivery Nasal Cannula Nasal Cannula Nasal Cannula Oxygen Flow Rate 3 2 2 Fraction of Inspired Oxygen 28 08/22/24 14:00 08/22/24 20:10 08/22/24 21:28 Temperature 98.1 F 98.3 F Pulse Rate 113 H 66 Respiratory Rate 16 20 Blood Pressure 96/67 L 135/52 L Pulse Oximetry 99 99 98 Oxygen Delivery Nasal Cannula Oxygen Flow Rate 2 Fraction of Inspired Oxygen 08/23/24 04:30 Temperature 97.4 F L Pulse Rate 62 Respiratory Rate 18 Blood Pressure 123/52 L Pulse Oximetry 97 Oxygen Delivery Oxygen Flow Rate Fraction of Inspired Oxygen <Xenia Moses, PACKAGING SALES REPRESENTATIVE - Last Filed: 08/23/24 14:57> Intake/Output Intake/Output: Intake & Output 08/20/24 08/21/24 08/22/24 08/23/24 23:59 23:59 23:59 23:59 Intake Total 50 1740 1040 200 Output Total 1200 1600 350 Balance 50 540 -560 -150 <Xenia Moses, PACKAGING SALES REPRESENTATIVE - Last Filed: 08/23/24 14:57> Meds/Results Medications: Active Medications Generic Name Dose Route Start Last Admin Trade Name Freq PRN Reason Stop Dose Admin Acetaminophen 650 mg 08/20/24 20:29 Acetaminophen 325 Mg Tablet PO Q4H PRN Mild Pain (1-3) or Fever Hydrocodone Bitart/Acetaminophen 1 tab 08/20/24 20:29 08/21/24 13:38 Hydrocodone/Acetaminophen (*Crx) 5-325 Mg Tablet PO 1 tab Q4H PRN Administration Pain Rated 4-6 Albuterol/Ipratropium 3 ml 08/20/24 22:22 08/21/24 13:40 Ipratropium 0.5 Mg/Albuterol Sulfate 2.5 Mg Ampul.Neb 3 Ml INHALATION 3 ml Q6HRT PRN Administration sob Apixaban 5 mg 08/21/24 09:00 08/22/24 20:32 Apixaban 5 Mg Tablet BY MOUTH 5 mg Q12HR NATASHA Administration Dutasteride 0.5 mg 08/21/24 09:00 08/22/24 09:34 Dutasteride 0.5 Mg Capsule PO 0.5 mg QAM NATASHA Administration Ferrous Sulfate 325 mg 08/21/24 09:00 08/22/24 17:00 Ferrous Sulfate [address] PO Not Given BID NATASHA Finasteride 5 mg 08/21/24 09:00 08/22/24 09:35 Finasteride 5 Mg Tablet PO 5 mg DAILY NATASHA Administration Fluticasone Propionate 1 spray 08/22/24 09:00 08/22/24 20:33 Fluticasone Propionate 0.05% Na Spr 16 Gm Btl (*Bkc) NASAL 1 spray Q12HR NATASHA Administration Folic Acid 0.4 mg 08/21/24 09:00 08/22/24 09:35 Folic Acid 0.4 Mg Tablet PO 0.4 mg DAILY NATASHA Administration Furosemide 10 mg 08/21/24 09:00 08/22/24 09:35 Furosemide 10 Mg Tablet PO 10 mg QAM NATASHA Administration Gabapentin 100 mg 08/21/24 09:00 08/22/24 20:32 Gabapentin 100 Mg Capsule PO 100 mg Q12HR NATASHA Administration Guaifenesin 1,200 mg 08/20/24 22:25 08/22/24 20:32 Guaifenesin 12 Hr 600 Mg Tabcr PO 1,200 mg Q12HR NATASHA Administration Heparin Sodium (Beef Lung) 50 units 08/21/24 09:00 08/22/24 09:36 Heparin Flush 50 Units/5 Ml Syringe IV PUSH 50 units QAM NATASHA Administration Heparin Sodium (Beef Lung) 50 units 08/20/24 18:55 Heparin Flush 50 Units/5 Ml Syringe IV PUSH PRN PRN after intermittent infusion Heparin Sodium (Beef Lung) 50 units 08/20/24 18:55 Heparin Flush 50 Units/5 Ml Syringe IV PUSH PRN PRN after blood draws Heparin Sodium (Porcine) 500 units 08/20/24 18:55 Heparin Sodium Lock Flush 500 Units/5 Ml Syringe IV PUSH PRN PRN see comments below Ceftriaxone Sodium 1 gm/ 50 mls @ 100 mls/hr 08/21/24 21:00 08/22/24 20:22 Sodium Chloride IVPB 100 mls/hr Q24H NATASHA Administration Azithromycin 500 mg/ Sodium 250 mls @ 250 mls/hr 08/21/24 22:00 08/22/24 21:11 Chloride IVPB 250 mls/hr Q24H NATASHA Administration Levothyroxine Sodium 44 mcg 08/21/24 06:30 08/23/24 05:50 Levothyroxine Sodium 44 Mcg Tablet PO 44 mcg DAILY@0630 NATASHA Administration Metoprolol Succinate 12.5 mg 08/21/24 09:00 08/22/24 09:34 Metoprolol Succinate Ext Rel 12.5 Mg Tabcr PO 12.5 mg DAILY NATASHA Administration Pravastatin Sodium 20 mg 08/21/24 09:00 08/22/24 09:34 Pravastatin Sodium 20 Mg Tablet BY MOUTH 20 mg DAILY NATASHA Administration Promethazine HCl 12.5 mg 08/20/24 20:29 Promethazine Hcl 25 Mg/Ml Ampul IV PUSH Q6H PRN Nausea Sertraline HCl 50 mg 08/21/24 09:00 08/22/24 09:35 Sertraline Hcl 50 Mg Tablet PO 50 mg DAILY NATASHA Administration Sodium Chloride 10 ml 08/20/24 22:00 08/23/24 05:50 Central Line Flush IV PUSH 10 ml Q8HR NATASHA Administration Spironolactone 25 mg 08/21/24 09:00 08/22/24 09:35 Spironolactone 25 Mg Tablet PO 25 mg DAILY NATASHA Administration Tamsulosin HCl 0.4 mg 08/21/24 09:00 08/22/24 09:34 Tamsulosin Hcl 0.4 Mg Capsule PO 0.4 mg DAILY NATASHA Administration <Xenia Moses, PACKAGING SALES REPRESENTATIVE - Last Filed: 08/23/24 14:57> Radiology Results: ITS Impressions Chest X-Ray 08/20/24 18:34 IMPRESSION: 1. Emphysema with increasing opacities in the bilateral lower lung zones which could represent pneumonia or mild pulmonary edema. 2. 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 <Xenia Moses, PACKAGING SALES REPRESENTATIVE - Last Filed: 08/23/24 14:57> Labs Labs: Laboratory Results - last 24 hr 08/23/24 06:01 WBC 10.6 H RBC 4.90 Hgb 10.4 L Hct 36.5 L MCV 74.5 L MCH 21.2 L MCHC 28.5 L RDW 25.8 H Plt Count 266 MPV 10.2 <Xenia Moses, PACKAGING SALES REPRESENTATIVE - Last Filed: 08/23/24 14:57>
[2024-08-23] MEDS: FLUTICASONE PROPIONATE 0.05% NA SPR 16 GM BTL (*BKC) 1 SPRAY NASAL ×2 (08:56→21:28)
[2024-08-23] MEDS: METOPROLOL SUCCINATE EXT REL 12.5 MG TABCR PO (08:56)
[2024-08-23] MEDS: SPIRONOLACTONE 25 MG TABLET PO (08:57)
[2024-08-23] MEDS: APIXABAN 5 MG TABLET BY MOUTH ×2 (08:57→21:25)
[2024-08-23] MEDS: GABAPENTIN 100 MG CAPSULE PO ×2 (08:57→21:25)
[2024-08-23] MEDS: FINASTERIDE 5 MG TABLET PO (08:57)
[2024-08-23] MEDS: DUTASTERIDE 0.5 MG CAPSULE PO (08:57)
[2024-08-23] MEDS: guaiFENesin 12 HR 600 MG TABCR 1200 MG PO ×2 (08:57→21:25)
[2024-08-23] MEDS: SERTRALINE HCL 50 MG TABLET PO (08:57)
[2024-08-23] MEDS: FOLIC ACID 0.4 MG TABLET PO (08:57)
[2024-08-23] MEDS: FUROSEMIDE 10 MG TABLET PO (08:58)
[2024-08-23] MEDS: PRAVASTATIN SODIUM 20 MG TABLET BY MOUTH (08:59)
[2024-08-23] MEDS: TAMSULOSIN HCL 0.4 MG CAPSULE PO (21:26)
[2024-08-23] MEDS: cefTRIAXone 1 GM in SODIUM CHLORIDE 0.9% IV 50 ML 100 ML IVPB (21:27)
[2024-08-23] MEDS: AZITHROMYCIN IV 500 MG in SODIUM CHLORIDE 0.9% IV 250 ML IVPB (22:15)
[2024-08-24] VITALS (7 sets, daily range): BP systolic 114–147; BP diastolic 54–67; PULSE 69–79; RESP 16–20; TEMP 35.8–37.4; O2SAT 95–98
[2024-08-24 00:51] LABS: Alanine Aminotransferase 10 U/L (6-50); Albumin Level 2.7 g/dL (3.5-5.1); Alkaline Phosphatase 42 U/L (38-126); Anion Gap 4 mmol/L (4-12); Aspartate Amino Transferase 18 U/L (17-59); Bilirubin,Total 0.1 mg/dL (0.2-1.3); Blood Urea Nitrogen 11 mg/dL (9-20); Calcium 8.4 mg/dL (8.4-10.2); Carbon Dioxide 28 mmol/L (22-30); Chloride 102 mmol/L (98-107); Estimated CRCL calculation 44 ml/min; Estimated Glomerular Filt Rate > 60; Glucose 63 mg/dL (65-110); Potassium 4.0 mmol/L (3.4-5.0); Sodium 134 mmol/L (137-145); Total Protein 5.7 g/dL (6.3-8.2)
[2024-08-24 05:01] LABS: Potassium 4.1 mmol/L (3.4-5.0)
[2024-08-24] MEDS: CENTRAL LINE FLUSH 10 ML IV PUSH ×3 (05:24→20:51)
[2024-08-24] MEDS: LEVOTHYROXINE SODIUM PO (05:24)
--- NOTE | 2024-08-24 07:16 | P.PNIM_ITS ---
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 <Xenia Moses SOLAR PROCESS ENGINEER - Last Filed: 08/24/24 12:56> Status: Acute <Xenia Moses SOLAR PROCESS ENGINEER - Last Filed: 08/24/24 12:56> (3) Chronic obstructive pulmonary disease, unspecified: Qualifiers: COPD type: unspecified COPD Qualified Code(s): J44.9 - Chronic obstructive pulmonary disease, unspecified <Xenia Moses APRN - Las t Filed: 08/24/24 12:56> Code(s): J44.9 - Chronic obstructive pulmonary disease, unspecified <Xenia Moses SOLAR PROCESS ENGINEER - Last Filed: 08/24/24 12:56> Status: Acute <Xenia Moses SOLAR PROCESS ENGINEER - Last Filed: 08/24/24 12:56> (4) Pneumonia: Code(s): J18.9 - Pneumonia, unspecified organism <Xenia Moses, SOLAR PROCESS ENGINEER - Last Filed: 08/24/24 12:56> Status: Acute <Xenia Moses SOLAR PROCESS ENGINEER - Last Filed: 08/24/24 12:56> (5) Fever: Code(s): R50.9 - Fever, unspecified <Xenia Moses SOLAR PROCESS ENGINEER - Last Filed: 08/24/24 12:56> Status: Acute <Xenia Moses APRN - Last Filed: 08/24/24 12:56> (6) Shortness of breath: Code(s): R06.02 - Shortness of breath <Xenia Moses SOLAR PROCESS ENGINEER - Last Filed: 08/24/24 12:56> Status: Acute <Xenia Moses SOLAR PROCESS ENGINEER - Last Filed: 08/24/24 12:56> Assessment and Plan: 84-year-old male with past medical history heart failure with preserved ejection fraction, COPD, AFib with RVR, prior tobacco abuse, lung cancer, BPH, hypertension, hyperlipidemia, hypothyroidism, chronic anemia, chronic respiratory failure with 2 L nasal cannula. Recently discharged from [facility] on 08/06/2024 due to COPD exacerbation. He is a new resident of [facility]. Presents to [facility] on 08/20/2024 with shortness of breath beginning after lunch. He also has a chronic cough with mucus production but it is worse now with yellow sputum. ER evaluation revealed temperature 100.7? F, saturating well on 2 L nasal cannula. White blood cell count 13.4, hemoglobin 10.9, platelet 289, serum creatinine 1.07, quad viral screen negative, chest x-ray with bilateral lower lung opacities in volume loss in left hemithorax with paramediastinal scarring in the upper lung zone. He was given ceftriaxone and azithromycin, acetaminophen. ----- Community-acquired pneumonia, likely bacterial Sepsis without shock as evidence by pneumonia fever and leukocytosis -low-grade fever. Continue to monitor -leukocytosis. Continue to trend -pending sputum and blood cultures, Legionella, mycoplasma, pneumococcal antigen -Tylenol p.r.n. -copious upper airway congestion. Start guaifenesin. 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 Heart healthy diet, intake/output, daily weights. Full code. Saline lock IV. Patient resides at [facility] 08/21 vest therapy ordered IS, ambulation- pt/ot ordered will give lasix 40 mg iv x 1 as BLE edema noted, then leg elevation and acewrap prn-discussed with RN continue antibiotics 08/22 Begin Vest Therapy with Respiratory Begin PT/OT Continue IS & Ambulation Continue leg elevation and jose a-wrap Continue antibiotics Ordered Flonase to aid with nasal congestion 08/23 - Chest Physiotherapy ordered modified to reflect Vest Therapy. Pt yet to receive since admission. - PT/OT: decreased functional independence & mobility d/t endurance & safety. Only tolerating short distance d/t SOB. Continue benefit from PT services. - Continue Abx, IS, & ambulation - Continue leg elevation & jose a-wrap - Repeat Chest XR: no change from 08/20/22 - WBC 10.6 today, previously 13.4 on 08/20 & 8.7 on 08.21. Continue to trend. - Modify iron supplement and Miralax doses to half or every other day to manage constipation 08/24 - Chest/Vest physiotherapy completed yesterday twice & today. Patient notices improvement in cough & production. Continue treatment. - OT on 08/23: notes increase SOB with dressing and transfers, but fair endurance. Minimal assistance with transfer but requires cueing for safety and assistance with transfers, mobility, and dressing. Continue OT services. - PT on 08/23: tolerated well. Required rest break at 40 feet when ambulating. requires cues for safety. Continue PT services.- - Continue Abx, IS, & ambulation - Continue leg elevation & jose a-wrap - recheck CBC, CMP in am tomorrow, 08/24 <Xenia Moses APRN - Last Filed: 08/24/24 12:56> 84-year-old male with past medical history heart failure with preserved ejection fraction, COPD, AFib with RVR, prior tobacco abuse, lung cancer, BPH, hypertension, hyperlipidemia, hypothyroidism, chronic anemia, chronic respiratory failure with 2 L nasal cannula. Recently discharged from [facility] on 08/06/2024 due to COPD exacerbation. He is a new resident of [facility]. Presents to [facility] on 08/20/2024 wit h shortness of breath beginning after lunch. He also has a chronic cough with mucus production but it is worse now with yellow sputum. ER evaluation revealed temperature 100.7? F, saturating well on 2 L nasal cannula. White blood cell count 13.4, hemoglobin 10.9, platelet 289, serum creatinine 1.07, quad viral screen negative, chest x-ray with bilateral lower lung opacities in volume loss in left hemithorax with paramediastinal scarring in the upper lung zone. He was given ceftriaxone and azithromycin, acetaminophen. ----- Community-acquired pneumonia, likely bacterial Sepsis without shock as evidence by pneumonia fever and leukocytosis -low-grade fever. Continue to monitor -leukocytosis. Continue to trend -pending sputum and blood cultures, Legionella, mycoplasma, pneumococcal antigen -Tylenol p.r.n. -copious upper airway congestion. Start guaifenesin. 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 Heart healthy diet, intake/output, daily weights. Full code. Saline lock IV. Patient resides at [facility] 08/21 vest therapy ordered IS, ambulation- pt/ot ordered will give lasix 40 mg iv x 1 as BLE edema noted, then leg elevation and acewrap prn-discussed with RN continue antibiotics 08/22 Begin Vest Therapy with Respiratory Begin PT/OT Continue IS & Ambulation Continue leg elevation and jose a-wrap Continue antibiotics Ordered Flonase to aid with nasal congestion 08/23 - Chest Physiotherapy ordered modified to reflect Vest Therapy. Pt yet to receive since admission. - PT/OT: decreased functional independence & mobility d/t endurance & safety. Only tolerating short distance d/t SOB. Continue benefit from PT services. - Continue Abx, IS, & ambulation - Continue leg elevation & jose a-wrap - Repeat Chest XR: no change from 08/20/22 - WBC 10.6 today, previously 13.4 on 08/20 & 8.7 on 08.21. Continue to trend. - Modify iron supplement and Miralax doses to half or every other day to manage constipation 08/24 - Chest/Vest physiotherapy completed yesterday twice & today. Patient notices improvement in cough & production. Continue treatment. - OT on 08/23: notes increase SOB with dressing and transfers, but fair endurance. Minimal assistance with transfer but requires cueing for safety and assistance with transfers, mobility, and dressing. Continue OT services. - PT on 08/23: tolerated well. Required rest break at 40 feet when ambulating. requires cues for safety. Continue PT services.- - Continue Abx, IS, & ambulation - Continue leg elevation & jose a-wrap <Edgardo Murray, Student - Last Filed: 08/24/24 12:50> Time Spent With Patient Time with patient: 25 - 35 minutes <Xenia Moses, SOLAR PROCESS ENGINEER - Last Filed: 08/24/24 12:56> Subjective Date/time seen: 08/24/24 07:16 <Xenia Moses SOLAR PROCESS ENGINEER - Last Filed: 08/24/24 12:56> Interval history: 84-year-old male with past medical history heart failure with preserved ejection fraction, COPD, AFib with RVR, prior tobacco abuse, lung cancer, BPH, hypertension, hyperlipidemia, hypothyroidism, chronic anemia, chronic respiratory failure with 2 L nasal cannula. Recently discharged from [facility] on 08/06/2024 due to COPD exacerbation. He is a new resident of [facility]. Presents to [facility] on 08/20/2024 with shortness of breath beginning after lunch. He also has a chronic cough with mucus production but it is worse now with yellow sputum. ER evaluation revealed temperature 100.7? F, saturating well on 2 L nasal cannula. White blood cell count 13.4, hemoglobin 10.9, platelet 289, serum creatinine 1.07, quad viral screen negative, chest x-ray with bilateral lower lung opacities in volume loss in left hemithorax with paramediastinal scarring in the upper lung zone. He was given ceftriaxone and azithromycin, acetaminophen. 08/21 pt is seen and examined.He is wearing oxygen at 2l-his baseline, gets very sob with any activity. Reports cough, lots of secretions. Feels very weak. German lower legs edema. 08/22 Pt seen this morning. Feels worse than the night prior. 94% Sat on 3L NC. Reports increase coughing with production this AM compared to night prior with nasal congestion. SOB with conversation and positional changes. German lower leg edema has improved with slight elevation, Lasix IV push, & jose a-wraps, but still present. Denies chest pain, dizziness, lightheadedness, abdominal pain, chills, night sweats, vision changes, confusion, pain or abnormalities with urination and bowel movements. 08/23 Pt doing well this AM. Minimal cough with production. Notes improvements in symptoms compared to prior 2 days. 93% Sat on 2L NC (pt baseline). Did temporari ly require increase O2 demand after transferring to chair. German LE edema remains the same. Denies chest pain, SOB, abdominal pain, dizzines, light headedness, chills, night sweats, and urine abnormalities. Last bowel movement was 08/21/24. Patient hesitant to receive medication to aid bowel movement and does not want to take iron supplement due to constipation episode on 08/21/24. <Xenia Moses, SOLAR PROCESS ENGINEER - Last Filed: 08/24/24 12:56> 84-year-old male with past medical history heart failure with preserved ejection fraction, COPD, AFib with RVR, prior tobacco abuse, lung cancer, BPH, hypertension, hyperlipidemia, hypothyroidism, chronic anemia, chronic respiratory failure with 2 L nasal cannula. Recently discharged from [facility] on 08/06/2024 due to COPD exacerbation. He is a new resident of [facility]. Presents to [facility] on 08/20/2024 with shortness of breath beginning after lunch. He also has a chronic cough with mucus production but it is worse now with yellow sputum. ER evaluation revealed temperature 100.7? F, saturating well on 2 L nasal cannula. White blood cell count 13.4, hemoglobin 10.9, platelet 289, serum creatinine 1.07, quad viral screen negative, chest x-ray with bilateral lower lung opacities in volume loss in left hemithorax with paramediastinal scarring in the upper lung zone. He was given ceftriaxone and azithromycin, acetaminophen. 08/21 pt is seen and examined.He is wearing oxygen at 2l-his baseline, gets very sob with any activity. Reports cough, lots of secretions. Feels very weak. German lower legs edema. 08/22 Pt seen this morning. Feels worse than the night prior. 94% Sat on 3L NC. Reports increase coughing with production this AM compared to night prior with nasal congestion. SOB with conversation and positional changes. German lower leg edema has improved with slight elevation, Lasix IV push, & ojse a-wraps, but still present. Denies chest pain, dizziness, lightheadedness, abdominal pain, chills, night sweats, vision changes, confusion, pain or abnormalities with urination and bowel movements. 08/23 Pt doing well this AM. Minimal cough with production. Notes improvements in symptoms compared to prior 2 days. 93% Sat on 2L NC (pt baseline). Did temporarily require increase O2 demand after transferring to chair. German LE edema remains the same. Denies chest pain, SOB, abdominal pain, dizzines, light headedness, chills, night sweats, and urine abnormalities. Last bowel movement was 08/21/24. Patient hesitant to receive medication to aid bowel movement and does not want to take iron supplement due to constipation episode on 08/21/24. 08/24: Pt continues to improve. Minimal cough and production that increase following vest treatment and improves through out the day. shortness of breath with activity that is manageable. Completed 2 respiratory vest treatments, OT, & PT over the last 24 hours. Increase oxygen demand momentarily with transfers, but otherwise at baseline. German LE edema unchanged. Last BM still 08/21/2024, has taken Miralax today. Denies chest pain, SOB at rest, abdominal pain, dizziness, light headedness, chills, night sweats, and urine abnormalities. <Edgardo Murray, Student - Last Filed: 08/24/24 12:50> Review of Systems Review of Systems: All systems reviewed & are unremarkable except as noted in HPI and below (Subjective/HPI) <Xenia Moses APRN - Last Filed: 08/06 10/31 12:56> Exam Narrative: up in bed, feeling better today <Xenia Moses APRN - Last Filed: 08/24/24 12:56> Const: General: comfortable and no acute distress <Xenia Moses APRN - Last Filed: 08/24/24 12:56> HENMT: Mouth: Yes moist mucous membranes <Xenia Moses APRN - Last Filed: 08/24/24 12:56> Eyes: Pupils: Equal, round and reactive pupils present <Xenia Moses APRN - Last Filed: 08/24/24 12:56> Neck: Neck: supple <Xenia Moses SOLAR PROCESS ENGINEER - Last Filed: 08/24/24 12:56> Resp: Effort & Inspection: normal respiratory effort <Xenia Moses APRN - Last Filed: 08/24/24 12:56> Auscultation: crackles <Xenia Moses APRN - Last Filed: 08/24/24 12:56> Other: Bilateral rhonchi <Xenia Moses APRN - Last Filed: 08/24/24 12:56> Cardio: Rate: regular rate <Xenia Moses APRN - Last Filed: 08/24/24 12:56> Rhythm: regular rhythm <Xenia Moses APRN - Last Filed: 08/24/24 12:56> Heart sounds: no gallops, no murmurs and no rubs <Xenia Moses APRN - Last Filed: 08/24/24 12:56> GI: Inspection: non-distended <Xenia Moses APRN - Last Filed: 08/24/24 12:56> Neuro: Cranial nerves: Yes Equal, round and reactive pupils present <Xenia Moses SOLAR PROCESS ENGINEER - Last Filed: 08/24/24 12:56> Motor exam (neuro): 5/5 motor strength present throughout <Xenia Moses SOLAR PROCESS ENGINEER - Last Filed: 08/24/24 12:56> Extrem: General: edema <Xenia Moses SOLAR PROCESS ENGINEER - Last Filed: 08/24/24 12:56> Other: 3+ pitting edema bilateral lower extremi ties <Xenia Moses SOLAR PROCESS ENGINEER - Last Filed: 08/24/24 12:56> Objective Data Vital Signs Vital Signs: Vital Signs - 24 hr 08/23/24 08:00 08/23/24 11:19 08/23/24 14:00 Temperature 98.0 F Pulse Rate 69 Respiratory Rate 16 Blood Pressure 136/64 Pulse Oximetry 93 99 94 Oxygen Delivery Nasal Cannula Nasal Cannula Oxygen Flow Rate 2 2 08/23/24 14:20 08/23/24 19:59 08/23/24 20:00 Temperature Pulse Rate Respiratory Rate Blood Pressure Pulse Oximetry 95 96 Oxygen Delivery Nasal Cannula Nasal Cannula Nasal Cannula Oxygen Flow Rate 2 3 4 08/23/24 20:15 08/24/24 04:30 Temperature 96.4 F L 96.4 F L Pulse Rate 112 H 69 Respiratory Rate 20 20 Blood Pressure 123/64 114/54 L Pulse Oximetry 96 98 Oxygen Delivery Oxygen Flow Rate <Xenia Moses APRN - Last Filed: 08/24/24 12:56> Intake/Output Intake/Output: Intake & Output 08/21/24 08/22/24 08/23/24 08/24/24 23:59 23:59 23:59 23:59 Intake Total 1740 1340 1470 100 Output Total 1200 1600 850 300 Balance 540 -260 620 -200 <Xenia Moses APRN - Last Filed: 08/24/24 12:56> Meds/Results Medications: Active Medications Generic Name Dose Route Start Last Admin Trade Name Freq PRN Reason Stop Dose Admin Acetaminophen 650 mg 08/20/24 20:29 Acetaminophen 325 Mg Tablet PO Q4H PRN Mild Pain (1-3) or Fever Hydrocodone Bitart/Acetaminophen 1 tab 08/20/24 20:29 08/21/24 13:38 Hydrocodone/Acetaminophen (*Crx) 5-325 Mg Tablet PO 1 tab Q4H PRN Administration Pain Rated 4-6 Albuterol/Ipratropium 3 ml 08/20/24 22:22 08/21/24 13:40 Ipratropium 0.5 Mg/Albuterol Sulfate 2.5 Mg Ampul.Neb 3 Ml INHALATION 3 ml Q6HRT PRN Administration sob Apixaban 5 mg 08/21/24 09:00 08/23/24 21:25 Apixaban 5 Mg Tablet BY MOUTH 5 mg Q12HR NATASHA Administration Dutasteride 0.5 mg 08/21/24 09:00 08/23/24 08:57 Dutasteride 0.5 Mg Capsule PO 0.5 mg QAM NATASHA Administration Ferrous Sulfate 325 mg 08/21/24 09:00 08/23/24 17:11 Ferrous Sulfate [address] PO Not Given BID NATASHA Finasteride 5 mg 08/21/24 09:00 08/23/24 08:57 Finasteride 5 Mg Tablet PO 5 mg DAILY NATASHA Administration Fluticasone Propionate 1 spray 08/22/24 09:00 08/23/24 21:28 Fluticasone Propionate 0.05% Na Spr 16 Gm Btl (*Bkc) NASAL 1 spray Q12HR NATASHA Administration Folic Acid 0.4 mg 08/21/24 09:00 08/23/24 08:57 Folic Acid 0.4 Mg Tablet PO 0.4 mg DAILY NATASHA Administration Furosemide 10 mg 08/21/24 09:00 08/23/24 08:58 Furosemide 10 Mg Tablet PO 10 mg QAM NATASHA Administration Gabapentin 100 mg 08/21/24 09:00 08/23/24 21:25 Gabapentin 100 Mg Capsule PO 100 mg Q12HR NATASHA Administration Guaifenesin 1,200 mg 08/20/24 22:25 08/23/24 21:25 Guaifenesin 12 Hr 600 Mg Tabcr PO 1,200 mg Q12HR NATASHA Administration Heparin Sodium (Beef Lung) 50 units 08/21/24 09:00 08/23/24 08:57 Heparin Flush 50 Units/5 Ml Syringe IV PUSH 50 units QAM NATASHA Administration Heparin Sodium (Beef Lung) 50 units 08/20/24 18:55 Heparin Flush 50 Units/5 Ml Syringe IV PUSH PRN PRN after intermittent infusion Heparin Sodium (Beef Lung) 50 units 08/20/24 18:55 Heparin Flush 50 Units/5 Ml Syringe IV PUSH PRN PRN after blood draws Heparin Sodium (Porcine) 500 units 08/20/24 18:55 Heparin Sodium Lock Flush 500 Units/5 Ml Syringe IV PUSH PRN PRN see comments below Ceftriaxone Sodium 1 gm/ 50 mls @ 100 mls/hr 08/21/24 21:00 08/23/24 21:27 Sodium Chloride IVPB 100 mls/hr Q24H NATASHA Administration Azithromycin 500 mg/ Sodium 250 mls @ 250 mls/hr 08/21/24 22:00 08/23/24 22:15 Chloride IVPB 250 mls/hr Q24H NATASHA Administration Levothyroxine Sodium 44 mcg 08/21/24 06:30 08/24/24 05:24 Levothyroxine Sodium 44 Mcg Tablet PO 44 mcg DAILY@0630 NATASHA Administration Metoprolol Succinate 12.5 mg 08/21/24 09:00 08/23/24 08:56 Metoprolol Succinate Ext Rel 12.5 Mg Tabcr PO 12.5 mg DAILY NATASHA Administration Pravastatin Sodium 20 mg 08/21/24 09:00 08/23/24 08:59 Pravastatin Sodium 20 Mg Tablet BY MOUTH 20 mg DAILY NATASHA Administration Promethazine HCl 12.5 mg 08/20/24 20:29 Promethazine Hcl 25 Mg/Ml Ampul IV PUSH Q6H PRN Nausea Sertraline HCl 50 mg 08/21/24 09:00 08/23/24 08:57 Sertraline Hcl 50 Mg Tablet PO 50 mg DAILY NATASHA Administration Sodium Chloride 10 ml 08/20/24 22:00 08/24/24 05:24 Central Line Flush IV PUSH 10 ml Q8HR NATASHA Administration Spironolactone 25 mg 08/21/24 09:00 08/23/24 08:57 Spironolactone 25 Mg Tablet PO 25 mg DAILY NATASHA Administration Tamsulosin HCl 0.4 mg 08/23/24 21:00 08/23/24 21:26 Tamsulosin Hcl 0.4 Mg Capsule PO 0.4 mg HS NATASHA Administration <Xenia Moses APRN - Last Filed: 08/24/24 12:56> Radiology Results: ITS Impressions Chest X-Ray 08/23/24 09:29 IMPRESSION: No change from previous examination. <Xenia Moses APRN - Last Filed: 08/24/24 12:56> Labs Labs: Laboratory Results - last 24 hr 08/21/24 08/23/24 08/24/24 06:05 06:01 04:37 Sodium 134 L Potassium 4.0 4.1 Chloride 102 Carbon Dioxide 28 Anion Gap 4 BUN 11 Creatinine 1.06 Estim Creat Clear Calc 44 Estimated GFR > 60 Glucose 63 L Calcium 8.4 Total Bilirubin 0.1 L AST 18 ALT 10 Alkaline Phosphatase 42 Total Protein 5.7 L Albumin 2.7 L M. pneumoniae (PCR) Cancelled <Xenia Moses APRN - Last Filed: 08/24/24 12:56>
[2024-08-24] MEDS: PRAVASTATIN SODIUM 20 MG TABLET BY MOUTH (08:56)
[2024-08-24] MEDS: SPIRONOLACTONE 25 MG TABLET PO (08:56)
[2024-08-24] MEDS: DUTASTERIDE 0.5 MG CAPSULE PO (08:56)
[2024-08-24] MEDS: APIXABAN 5 MG TABLET BY MOUTH ×2 (08:56→20:51)
[2024-08-24] MEDS: FINASTERIDE 5 MG TABLET PO (08:56)
[2024-08-24] MEDS: guaiFENesin 12 HR 600 MG TABCR 1200 MG PO ×2 (08:56→20:51)
[2024-08-24] MEDS: SERTRALINE HCL 50 MG TABLET PO (08:56)
[2024-08-24] MEDS: FOLIC ACID 0.4 MG TABLET PO (08:56)
[2024-08-24] MEDS: FUROSEMIDE 10 MG TABLET PO (08:56)
[2024-08-24] MEDS: GABAPENTIN 100 MG CAPSULE PO ×2 (08:56→20:51)
[2024-08-24] MEDS: METOPROLOL SUCCINATE EXT REL 12.5 MG TABCR PO (08:56)
[2024-08-24] MEDS: FLUTICASONE PROPIONATE 0.05% NA SPR 16 GM BTL (*BKC) 1 SPRAY NASAL ×2 (08:57→20:52)
--- NOTE | 2024-08-24 12:06 | PCRCNOTE ---
Vest therapy not done at this time pt is eating lunch. Therapist will re check on pt at a later time.
[2024-08-24] MEDS: cefTRIAXone 1 GM in SODIUM CHLORIDE 0.9% IV 50 ML 100 ML IVPB (20:51)
[2024-08-24] MEDS: TAMSULOSIN HCL 0.4 MG CAPSULE PO (20:51)
[2024-08-24] MEDS: AZITHROMYCIN IV 500 MG in SODIUM CHLORIDE 0.9% IV 250 ML IVPB (21:40)
[2024-08-25] VITALS (7 sets, daily range): BP systolic 114–129; BP diastolic 67–73; PULSE 67–117; RESP 18; TEMP 36.4–36.8; O2SAT 92–97
[2024-08-25 04:26] LABS: Hematocrit 33.6 % (42.0-52.0); Hemoglobin 9.7 g/dL (14.0-18.0); Mean Corpuscular HGB Conc 28.9 g/dl (32-36); Mean Corpuscular Hemoglobin 21.3 pg (26-34); Mean Corpuscular Volume 73.7 fl (80-100); Platelet Count Result 260 k/mm3 (150-375); Red Blood Count 4.56 M/mm3 (4.6-6.20); White Blood Count 9.5 K/mm3 (4.5-10.0)
[2024-08-25 04:47] LABS: Alanine Aminotransferase 10 U/L (6-50); Albumin Level 2.5 g/dL (3.5-5.1); Alkaline Phosphatase 38 U/L (38-126); Anion Gap 1 mmol/L (4-12); Aspartate Amino Transferase 29 U/L (17-59); Bilirubin,Total 0.2 mg/dL (0.2-1.3); Blood Urea Nitrogen 11 mg/dL (9-20); Calcium 8.3 mg/dL (8.4-10.2); Carbon Dioxide 31 mmol/L (22-30); Chloride 100 mmol/L (98-107); Estimated CRCL calculation 46 ml/min; Estimated Glomerular Filt Rate > 60; Glucose 74 mg/dL (65-110); Potassium 3.9 mmol/L (3.4-5.0); Sodium 132 mmol/L (137-145); Total Protein 5.2 g/dL (6.3-8.2)
[2024-08-25] MEDS: LEVOTHYROXINE SODIUM PO (05:20)
[2024-08-25] MEDS: CENTRAL LINE FLUSH 10 ML IV PUSH ×3 (05:21→21:26)
[2024-08-25] MEDS: PRAVASTATIN SODIUM 20 MG TABLET BY MOUTH (09:02)
[2024-08-25] MEDS: FOLIC ACID 0.4 MG TABLET PO (09:02)
[2024-08-25] MEDS: DUTASTERIDE 0.5 MG CAPSULE PO (09:02)
[2024-08-25] MEDS: METOPROLOL SUCCINATE EXT REL 12.5 MG TABCR PO (09:02)
[2024-08-25] MEDS: APIXABAN 5 MG TABLET BY MOUTH ×2 (09:02→20:52)
[2024-08-25] MEDS: FINASTERIDE 5 MG TABLET PO (09:02)
[2024-08-25] MEDS: SPIRONOLACTONE 25 MG TABLET PO (09:03)
[2024-08-25] MEDS: guaiFENesin 12 HR 600 MG TABCR 1200 MG PO ×2 (09:04→20:52)
[2024-08-25] MEDS: FUROSEMIDE 10 MG TABLET PO (09:04)
[2024-08-25] MEDS: GABAPENTIN 100 MG CAPSULE PO ×2 (09:04→20:52)
[2024-08-25] MEDS: SERTRALINE HCL 50 MG TABLET PO (09:05)
--- NOTE | 2024-08-25 12:40 | PM.IMPN ---
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 <Xenia Moses GLOBAL SOURCING MANAGER - Last Filed: 08/25/24 13:38> Status: Acute <Xenia Moses, GLOBAL SOURCING MANAGER - Last Filed: 08/25/24 13:38> (3) Chronic obstructive pulmonary disease, unspecified: Qualifiers: COPD type: unspecified COPD Qualified Code(s): J44.9 - Chronic obstructive pulmonary disease, unspecified <Xenia oMses GLOBAL SOURCING MANAGER - Last Filed: 08/25/24 13:38> Code(s): J44.9 - Chronic obstructive pulmonary disease, unspecified <Xenia Moses GLOBAL SOURCING MANAGER - Last Filed: 08/25/24 13:38> Status: Acute <Xenia Moses GLOBAL SOURCING MANAGER - Last Filed: 08/25/24 13:38> (4) Pneumonia: Code(s): J18.9 - Pneumonia, unspecified organism <Xenia Moses, GLOBAL SOURCING MANAGER - Last Filed: 08/25/24 13:38> Status: Acute <Xenia Moses, GLOBAL SOURCING MANAGER - Last Filed: 08/25/24 13:38> (5) Fever: Code(s): R50.9 - Fever, unspecified <Xenia Moses, GLOBAL SOURCING MANAGER - Last Filed: 08/25/24 13:38> Status: Acute <Xenia Moses, GLOBAL SOURCING MANAGER - Last Filed: 08/25/24 13:38> (6) Shortness of breath: Code(s): R06.02 - Shortness of breath <Xenia Moses GLOBAL SOURCING MANAGER - Last Filed: 08/25/24 13:38> Status: Acute <Xenia Moses, GLOBAL SOURCING MANAGER - Last Filed: 08/25/24 13:38> Assessment and Plan: 84-year-old male with past medical history heart failure with preserved ejection fraction, COPD, AFib with RVR, prior tobacco abuse, lung cancer, BPH, hypertension, hyperlipidemia, hypothyroidism, chronic anemia, chronic respiratory failure with 2 L nasal cannula. Recently discharged from [facility] on 08/06/2024 due to COPD exacerbation. He is a new resident of [facility]. Presents to [facility] on 08/20/2024 with shortness of breath beginning after lunch. He also has a chronic cough with mucus production but it is worse now with yellow sputum. ER evaluation revealed temperature 100.7? F, saturating well on 2 L nasal cannula. White blood cell count 13.4, hemoglobin 10.9, platelet 289, serum creatinine 1.07, quad viral screen negative, chest x-ray with bilateral lower lung opacities in volume loss in left hemithorax with paramediastinal scarring in the upper lung zone. He was given ceftriaxone and azithromycin, acetaminophen. ----- Community-acquired pneumonia, likely bacterial Sepsis without shock as evidence by pneumonia fever and leukocytosis -low-grade fever. Continue to monitor -leukocytosis. Continue to trend -pending sputum and blood cultures, Legionella, mycoplasma, pneumococcal antigen -Tylenol p.r.n. -copious upper airway congestion. Start guaifenesin. 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 Heart healthy diet, intake/output, daily weights. Full code. Saline lock IV. Patient resides at [facility] 08/21 vest therapy ordered IS, ambulation- pt/ot ordered will give lasix 40 mg iv x 1 as BLE edema noted, then leg elevation and acewrap prn-discussed with RN continue antibiotics 08/22 Begin Vest Therapy with Respiratory Begin PT/OT Continue IS & Ambulation Continue leg elevation and jose a-wrap Continue antibiotics Ordered Flonase to aid with nasal congestion 08/23 - Chest Physiotherapy ordered modified to reflect Vest Therapy. Pt yet to receive since admission. - PT/OT: decreased functional independence & mobility d/t endurance & safety. Only tolerating short distance d/t SOB. Continue benefit from PT services. - Continue Abx, IS, & ambulation - Continue leg elevation & jose a-wrap - Repeat Chest XR: no change from 08/20/22 - WBC 10.6 today, previously 13.4 on 08/20 & 8.7 on 08.21. Continue to trend. - Modify iron supplement and Miralax doses to half or every other day to manage constipation 08/24 - Chest/Vest physiotherapy completed yesterday twice & today. Patient notices improvement in cough & production. Continue treatment. - OT on 08/23: notes increase SOB with dressing and transfers, but fair endurance. Minimal assistance with transfer but requires cueing for safety and assistance with transfers, mobility, and dressing. Continue OT services. - PT on 08/23: tolerated well. Required rest break at 40 feet when ambulating. requires cues for safety. Continue PT services.- - Continue Abx, IS, & ambulation - Continue leg elevation & jose a-wrap - recheck CBC, CMP in am tomorrow, 08/24 08/25 - continue chest/vest physiotherapy. - PT on 08/24: decreased endurance & balance with transfers & ambulation. on 4L of O2 with activity. Reduced to 3L at end of session. Continue PT - Labs reviewed. CBC is 9.5 - increase dietary supplementation to TID - low total protein & albumin - Continue Abx, IS, & ambulation - Continue leg elevation & jose a-wrap <Xenia Moses, GLOBAL SOURCING MANAGER - Last Filed: 08/25/24 13:38> 84-year-old male with past medical history heart failure with preserved ejection fraction, COPD, AFib with RVR, prior tobacco abuse, lung cancer, BPH, hypertension, hyperlipidemia, hypothyroidism, chronic anemia, chronic respiratory failure with 2 L nasal cannula. Recently discharged from [facility] on 08/06/2024 due to COPD exacerbation. He is a new resident of [facility]. Presents to [facility] on 08/20/2024 with shortness of breath beginning after lunch. He also has a chronic cough with mucus production but it is worse now with yellow sputum. ER evaluation revealed temperature 100.7? F, saturating well on 2 L nasal cannula. White blood cell count 13.4, hemoglobin 10.9, platelet 289, serum creatinine 1.07, quad viral screen negative, chest x-ray with bilateral lower lung opacities in volume loss in left hemithorax with paramediastinal scarring in the upper lung zone. He was given ceftriaxone and azithromycin, acetaminophen. ----- Community-acquired pneumonia, likely bacterial Sepsis without shock as evidence by pneumonia fever and leukocytosis -low-grade fever. Continue to monitor -leukocytosis. Continue to trend -pending sputum and blood cultures, Legionella, mycoplasma, pneumococcal antigen -Tylenol p.r.n. -copious upper airway congestion. Start guaifenesin. 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 Heart healthy diet, intake/output, daily weights. Full code. Saline lock IV. Patient resides at [facility] 08/21 vest therapy ordered IS, ambulation- pt/ot ordered will give lasix 40 mg iv x 1 as BLE edema noted, then leg elevation and acewrap prn-discussed with RN continue antibiotics 08/22 Begin Vest Therapy with Respiratory Begin PT/OT Continue IS & Ambulation Continue leg elevation and jose a-wrap Continue antibiotics Ordered Flonase to aid with nasal congestion 08/23 - Chest Physiotherapy ordered modified to reflect Vest Therapy. Pt yet to receive since admission. - PT/OT: decreased functional independence & mobility d/t endurance & safety. Only tolerating short distance d/t SOB. Continue benefit from PT services. - Continue Abx, IS, & ambulation - Continue leg elevation & jose a-wrap - Repeat Chest XR: no change from 08/20/22 - WBC 10.6 today, previously 13.4 on 08/20 & 8.7 on 08.21. Continue to trend. - Modify iron supplement and Miralax doses to half or every other day to manage constipation 08/24 - Chest/Vest physiotherapy completed yesterday twice & today. Patient notices improvement in cough & production. Continue treatment. - OT on 08/23: notes increase SOB with dressing and transfers, but fair endurance. Minimal assistance with transfer but requires cueing for safety and assistance with transfers, mobility, and dressing. Continue OT services. - PT on 08/23: tolerated well. Required rest break at 40 feet when ambulating. requires cues for safety. Continue PT services.- - Continue Abx, IS, & ambulation - Continue leg elevation & jose a-wrap - recheck CBC, CMP in am tomorrow, 08/24 - continue chest/vest physiotherapy. - PT on 08/24: decreased endurance & balance with transfers & ambulation. on 4L of O2 with activity. Reduced to 3L at end of session. Continue PT - Labs reviewed. CBC is 9.5 - increase dietary supplementation to TID - low total protein & albumin - Continue Abx, IS, & ambulation - Continue leg elevation & jose a-wrap <Edgardo Murray, Student - Last Filed: 08/25/24 12:57> Time Spent With Patient Time with patient: 25 - 35 minutes <Xenia Moses GLOBAL SOURCING MANAGER - Last Filed: 08/25/24 13:38> Subjective Date/time seen: 08/25/24 12:40 <Xenia Moses GLOBAL SOURCING MANAGER - Last Filed: 08/25/24 13:38> Interval history: 84-year-old male with past medical history heart failure with preserved ejection fraction, COPD, AFib with RVR, prior tobacco abuse, lung cancer, BPH, hypertension, hyperlipidemia, hypothyroidism, chronic anemia, chronic respiratory failure with 2 L nasal cannula. Recently discharged from [facility] on 08/06/2024 due to COPD exacerbation. He is a new resident of [facility]. Presents to [facility] on 08/20/2024 with shortness of breath beginning after lunch. He also has a chronic cough with mucus production but it is worse now with yellow sputum. ER evaluation revealed temperature 100.7? F, saturating well on 2 L nasal cannula. White blood cell count 13.4, hemoglobin 10.9, platelet 289, serum creatinine 1.07, quad viral screen negative, chest x-ray with bilateral lower lung opacities in volume loss in left hemithorax with paramediastinal scarring in the upper lung zone. He was given ceftriaxone and azithromycin, acetaminophen. 08/21 pt is seen and examined.He is wearing oxygen at 2l-his baseline, gets very sob with any activity. Reports cough, lots of secretions. Feels very weak. German lower legs edema. 08/22 Pt seen this morning. Feels worse than the night prior. 94% Sat on 3L NC. Reports increase coughing with production this AM compared to night prior with nasal congestion. SOB with conversation and positional changes. German lower leg edema has improved with slight elevation, Lasix IV push, & jose a-wraps, but still present. Denies chest pain, dizziness, lightheadedness, abdominal pain, chills, night sweats, vision changes, confusion, pain or abnormalities with urination and bowel movements. 08/23 Pt doing well this AM. Minimal cough with production. Notes improvements in symptoms compared to prior 2 days. 93% Sat on 2L NC (pt baseline). Did temporarily require increase O2 demand after transferring to chair. German LE edema remains the same. Denies chest pain, SOB, abdominal pain, dizzines, light headedness, chills, night sweats, and urine abnormalities. Last bowel movement was 08/21/24. Patient hesitant to receive medication to aid bowel movement and does not want to take iron supplement due to constipation episode on 08/21/24. 08/24: Pt continues to improve. Minimal cough and production that increase following vest treatment and improves through out the day. shortness of breath with activity that is manageable. Completed 2 respiratory vest treatments, OT, & PT over the last 24 hours. Increase oxygen demand momentarily with transfers, but otherwise at baseline. German LE edema unchanged. Last BM still 08/21/2024, has taken Miralax today. Denies chest pain, SOB at rest, abdominal pain, dizziness, light headedness, chills, night sweats, and urine abnormalities. 08/25: Seated upright upon exam. Notes improvement and benefit from vest treatment. Shortness of breath with transfers and activity/PT. Pt feels that this is improving as well. Requires 4L NC after transfer/activity but returns to 2L shortly after. German LE Edema unchanged. BM yesterday without complication. Denies chest pain, SOB at rest, abdominal pain, dizziness, light headedness, chills, night sweats, and urine abnormalities. <Xenia Moses, GLOBAL SOURCING MANAGER - Last Filed: 08/25/24 13:38> 84-year-old male with past medical history heart failure with preserved ejection fraction, COPD, AFib with RVR, prior tobacco abuse, lung cancer, BPH, hypertension, hyperlipidemia, hypothyroidism, chronic anemia, chronic respiratory failure with 2 L nasal cannula. Recently discharged from [facility] on 08/06/2024 due to COPD exacerbation. He is a new resident of [facility]. Presents to [facility] on 08/20/2024 with shortness of breath beginning after lunch. He also has a chronic cough with mucus production but it is worse now with yellow sputum. ER evaluation revealed temperature 100.7? F, saturating well on 2 L nasal cannula. White blood cell count 13.4, hemoglobin 10.9, platelet 289, serum creatinine 1.07, quad viral screen negative, chest x-ray with bilateral lower lung opacities in volume loss in left hemithorax with paramediastinal scarring in the upper lung zone. He was given ceftriaxone and azithromycin, acetaminophen. 08/21 pt is seen and examined.He is wearing oxygen at 2l-his baseline, gets very sob with any activity. Reports cough, lots of secretions. Feels very weak. German lower legs edema. 08/22 Pt seen this morning. Feels worse than the night prior. 94% Sat on 3L NC. Reports increase coughing with production this AM compared to night prior with nasal congestion. SOB with conversation and positional changes. German lower leg edema has improved with slight elevation, Lasix IV push, & jose a-wraps, but still present. Denies chest pain, dizziness, lightheadedness, abdominal pain, chills, night sweats, vision changes, confusion, pain or abnormalities with urination and bowel movements. 08/23 Pt doing well this AM. Minimal cough with production. Notes improvements in symptoms compared to prior 2 days. 93% Sat on 2L NC (pt baseline). Did temporarily require increase O2 demand after transferring to chair. German LE edema remains the same. Denies chest pain, SOB, abdominal pain, dizzines, light headedness, chills, night sweats, and urine abnormalities. Last bowel movement was 08/21/24. Patient hesitant to receive medication to aid bowel movement and does not want to take iron supplement due to constipation episode on 08/21/24. 08/24: Pt continues to improve. Minimal cough and production that increase following vest treatment and improves through out the day. shortness of breath with activity that is manageable. Completed 2 respiratory vest treatments, OT, & PT over the last 24 hours. Increase oxygen demand momentarily with transfers, but otherwise at baseline. German LE edema unchanged. Last BM still 08/21/2024, has taken Miralax today. Denies chest pain, SOB at rest, abdominal pain, dizziness, light headedness, chills, night sweats, and urine abnormalities. 09/03: Seated upright upon exam. Notes improvement and benifit from vest treatment. Shortness of breath with transfers and activity/PT. Pt feels that this is improving as well. Requires 4L NC after transfer/activity but returns to 2L shortly after. German LE Edema unchanged. BM yesterday without complication. Denies chest pain, SOB at rest, abdominal pain, dizziness, light headedness, chills, night sweats, and urine abnormalities. <Edgardo Murray, Student - Last Filed: 08/25/24 12:57> Review of Systems Review of Systems: All systems reviewed & are unremarkable except as noted in HPI and below (Subjective/HPI) <Xenia Moses APRN - Last Filed: 08/25/24 13:38> Exam Narrative: up in bed, feeling better today <Xenia Moses APRN - Last Filed: 08/25/24 13:38> Const: General: comfortable and no acute distress <Xenia Moses APRN - Last Filed: 08/25/24 13:38> HENMT: Mouth: Yes moist mucous membranes <Xenia Moses APRN - Last Filed: 08/25/24 13:38> Eyes: Pupils: Equal, round and reactive pupils present <Xenia Moses APRN - Last Filed: 08/25/24 13:38> Neck: Neck: supple <Xenia Moses GLOBAL SOURCING MANAGER - Last Filed: 08/25/24 13:38> Resp: Effort & Inspection: normal respiratory effort <Xenia Moses APRN - Last Filed: 08/25/24 13:38> Auscultation: crackles <Xenia Moses APRN - Last Filed: 08/25/24 13:38> Other: Bilateral rhonchi <Xenia Moses GLOBAL SOURCING MANAGER - Last Filed: 08/25/24 13:38> Cardio: Rate: regular rate <Xenia Moses GLOBAL SOURCING MANAGER - Last Filed: 08/25/24 13:38> Rhythm: regular rhythm <Xenia Moses GLOBAL SOURCING MANAGER - Last Filed: 08/25/24 13:38> Heart sounds: no gallops, no murmurs and no rubs <Xenia Moses GLOBAL SOURCING MANAGER - Last Filed: 08/25/24 13:38> GI: Inspection: non-distended <Xenia Moses GLOBAL SOURCING MANAGER - Last Filed: 08/25/24 13:38> Neuro: Cranial nerves: Yes Equal, round and reactive pupils present <Xenia Moses GLOBAL SOURCING MANAGER - Last Filed: 08/25/24 13:38> Motor exam (neuro): 5/5 motor strength present throughout <Xenia Moses GLOBAL SOURCING MANAGER - Last Filed: 08/25/24 13:38> Extrem: General: edema <Xenia Moses GLOBAL SOURCING MANAGER - Last Filed: 08/25/24 13:38> Other: 3+ pitting edema bilateral lower extremities <Xenia Moses GLOBAL SOURCING MANAGER - Last Filed: 08/25/24 13:38> Objective Data Vital Signs Vital Signs: Vital Signs - 24 hr 08/24/24 14:00 08/24/24 19:55 08/24/24 20:00 Temperature 99.4 F 97.3 F L Pulse Rate 77 79 Respiratory Rate 16 16 Blood Pressure 120/67 147/62 H Pulse Oximetry 97 97 97 Oxygen Delivery Nasal Cannula Oxygen Flow Rate 3 Fraction of Inspired Oxygen 08/24/24 20:27 08/25/24 05:15 08/25/24 07:25 Temperature 97.6 F Pulse Rate 67 Respiratory Rate 18 Blood Pressure 129/72 Pulse Oximetry 98 96 92 Oxygen Delivery Nasal Cannula Nasal Cannula Oxygen Flow Rate 2 2 Fraction of Inspired Oxygen 08/25/24 09:02 08/25/24 09:04 Temperature Pulse Rate 67 Respiratory Rate Blood Pressure Pulse Oximetry 92 Oxygen Delivery Nasal Cannula Oxygen Flow Rate 3 Fraction of Inspired Oxygen <Xenia Moses GLOBAL SOURCING MANAGER - Last Filed: 08/25/24 13:38> Intake/Output Intake/Output: Intake & Output 08/22/24 08/23/24 08/24/24 08/25/24 23:59 23:59 23:59 23:59 Intake Total 1340 1770 1220 640 Output Total 1600 850 700 400 Balance -260 920 520 240 <Xenia Moses, GLOBAL SOURCING MANAGER - Last Filed: 08/25/24 13:38> Meds/Results Medications: Active Medications Generic Name Dose Route Start Last Admin Trade Name Freq PRN Reason Stop Dose Admin Acetaminophen 650 mg 08/20/24 20:29 Acetaminophen 325 Mg Tablet PO Q4H PRN Mild Pain (1-3) or Fever Hydrocodone Bitart/Acetaminophen 1 tab 08/20/24 20:29 08/21/24 13:38 Hydrocodone/Acetaminophen (*Crx) 5-325 Mg Tablet PO 1 tab Q4H PRN Administration Pain Rated 4-6 Albuterol/Ipratropium 3 ml 08/20/24 22:22 08/21/24 13:40 Ipratropium 0.5 Mg/Albuterol Sulfate 2.5 Mg Ampul.Neb 3 Ml INHALATION 3 ml Q6HRT PRN Administration sob Apixaban 5 mg 08/21/24 09:00 08/25/24 09:02 Apixaban 5 Mg Tablet BY MOUTH 5 mg Q12HR NATASHA Administration Dutasteride 0.5 mg 08/21/24 09:00 08/25/24 09:02 Dutasteride 0.5 Mg Capsule PO 0.5 mg QAM NATASHA Administration Ferrous Sulfate 325 mg 08/21/24 09:00 08/25/24 09:19 Ferrous Sulfate [address] PO Not Given BID NATASHA Finasteride 5 mg 08/21/24 09:00 08/25/24 09:02 Finasteride 5 Mg Tablet PO 5 mg DAILY NATASHA Administration Fluticasone Propionate 1 spray 08/22/24 09:00 08/25/24 09:05 Fluticasone Propionate 0.05% Na Spr 16 Gm Btl (*Bkc) NASAL Not Given Q12HR NATASHA Fluticasone/Umeclidinium/Vilanterol 1 puff 08/25/24 10:05 Fluticasone/Umeclidin/Vilanter 100-62.5-25 Mcg Ellipta INHALATION DAILYRT NATASHA Folic Acid 0.4 mg 08/21/24 09:00 08/25/24 09:02 Folic Acid 0.4 Mg Tablet PO 0.4 mg DAILY NATASHA Administration Furosemide 10 mg 08/21/24 09:00 08/25/24 09:04 Furosemide 10 Mg Tablet PO 10 mg QAM NATASHA Administration Gabapentin 100 mg 08/21/24 09:00 08/25/24 09:04 Gabapentin 100 Mg Capsule PO 100 mg Q12HR NATASHA Administration Guaifenesin 1,200 mg 08/20/24 22:25 08/25/24 09:04 Guaifenesin 12 Hr 600 Mg Tabcr PO 1,200 mg Q12HR NATASHA Administration Heparin Sodium (Beef Lung) 50 units 08/21/24 09:00 08/25/24 09:05 Heparin Flush 50 Units/5 Ml Syringe IV PUSH 50 units QAM NATASHA Administration Heparin Sodium (Beef Lung) 50 units 08/20/24 18:55 Heparin Flush 50 Units/5 Ml Syringe IV PUSH PRN PRN after intermittent infusion Heparin Sodium (Beef Lung) 50 units 08/20/24 18:55 Heparin Flush 50 Units/5 Ml Syringe IV PUSH PRN PRN after blood draws Heparin Sodium (Porcine) 500 units 08/20/24 18:55 Heparin Sodium Lock Flush 500 Units/5 Ml Syringe IV PUSH PRN PRN see comments below Ceftriaxone Sodium 1 gm/ 50 mls @ 100 mls/hr 08/21/24 21:00 08/24/24 20:51 Sodium Chloride IVPB 100 mls/hr Q24H NATASHA Administration Azithromycin 500 mg/ Sodium 250 mls @ 250 mls/hr 08/21/24 22:00 08/24/24 21:40 Chloride IVPB 250 mls/hr Q24H NATASHA Administration Levothyroxine Sodium 44 mcg 08/21/24 06:30 08/25/24 05:20 Levothyroxine Sodium 44 Mcg Tablet PO 44 mcg DAILY@0630 NATASHA Administration Metoprolol Succinate 12.5 mg 08/21/24 09:00 08/25/24 09:02 Metoprolol Succinate Ext Rel 12.5 Mg Tabcr PO 12.5 mg DAILY NATASHA Administration Polyethylene Glycol 17 gm 08/24/24 09:19 Polyethylene Glycol 3350 17 Gm Powd.Pack PO QAM PRN Constipation Pravastatin Sodium 20 mg 08/21/24 09:00 08/25/24 09:02 Pravastatin Sodium 20 Mg Tablet BY MOUTH 20 mg DAILY NATASHA Administration Promethazine HCl 12.5 mg 08/20/24 20:29 Promethazine Hcl 25 Mg/Ml Ampul IV PUSH Q6H PRN Nausea Sertraline HCl 50 mg 08/21/24 09:00 08/25/24 09:05 Sertraline Hcl 50 Mg Tablet PO 50 mg DAILY NATASHA Administration Sodium Chloride 10 ml 08/20/24 22:00 08/25/24 05:21 Central Line Flush IV PUSH 10 ml Q8HR NATASHA Administration Spironolactone 25 mg 08/21/24 09:00 08/25/24 09:03 Spironolactone 25 Mg Tablet PO 25 mg DAILY NATASHA Administration Tamsulosin HCl 0.4 mg 08/23/24 21:00 08/24/24 20:51 Tamsulosin Hcl 0.4 Mg Capsule PO 0.4 mg HS NATASHA Administration <Xenia Moses, GLOBAL SOURCING MANAGER - Last Filed: 08/25/24 13:38> Radiology Results: ITS Impressions Chest X-Ray 08/23/24 09:29 IMPRESSION: No change from previous examination. <Xenia Moses GLOBAL SOURCING MANAGER - Last Filed: 08/25/24 13:38> Labs Labs: Laboratory Results - last 24 hr 08/25/24 04:19 WBC 9.5 RBC 4.56 L Hgb 9.7 L Hct 33.6 L MCV 73.7 L MCH 21.3 L MCHC 28.9 L RDW 25.2 H Plt Count 260 MPV 9.4 Sodium 132 L Potassium 3.9 Chloride 100 Carbon Dioxide 31 H Anion Gap 1 L BUN 11 Creatinine 0.99 Estim Creat Clear Calc 46 Estimated GFR > 60 Glucose 74 Calcium 8.3 L Total Bilirubin 0.2 AST 29 ALT 10 Alkaline Phosphatase 38 Total Protein 5.2 L Albumin 2.5 L <Xenia Moses GLOBAL SOURCING MANAGER - Last Filed: 08/25/24 13:38>
[2024-08-25] MEDS: cefTRIAXone 1 GM in SODIUM CHLORIDE 0.9% IV 50 ML 100 ML IVPB (20:51)
[2024-08-25] MEDS: FLUTICASONE PROPIONATE 0.05% NA SPR 16 GM BTL (*BKC) 1 SPRAY NASAL (20:52)
[2024-08-25] MEDS: TAMSULOSIN HCL 0.4 MG CAPSULE PO (20:52)
[2024-08-25] MEDS: AZITHROMYCIN IV 500 MG in SODIUM CHLORIDE 0.9% IV 250 ML IVPB (21:26)
[2024-08-26] VITALS (10 sets, daily range): BP systolic 100–108; BP diastolic 54–84; PULSE 68–93; RESP 20; TEMP 36.3–36.4; O2SAT 87–97
[2024-08-26 04:54] LABS: Potassium 4.0 mmol/L (3.4-5.0)
[2024-08-26] MEDS: FLUTICASONE/UMECLIDIN/VILANTER 100-62.5-25 MCG ELLIPTA 1 PUFF INHALATION (05:19)
[2024-08-26] MEDS: CENTRAL LINE FLUSH 10 ML IV PUSH (05:31)
[2024-08-26] MEDS: LEVOTHYROXINE SODIUM PO (05:31)
--- NOTE | 2024-08-26 07:19 | P.DS_ITS ---
DS: Admitting Diagnosis Discharge Date 08/26/2024 <Edgardo Ralf Murray Student - Last Filed: 08/26/24 11:42> Admitting Diagnosis Pneumonia <Edgardo Murray Student - Last Filed: 08/26/24 11:42> DS: Discharge Diagnosis Discharge Diagnosis (1) Pneumonia: Code(s): J18.9 - Pneumonia, unspecified organism <Xenia Moses LEAD ELECTRICAL CONTROLS ENGINEER - Last Filed: 08/26/24 13:10> Status: Acute <Xenia Moses LEAD ELECTRICAL CONTROLS ENGINEER - Last Filed: 08/26/24 13:10> (2) Fever: Code(s): R50.9 - Fever, unspecified <Xenia Moses, LEAD ELECTRICAL CONTROLS ENGINEER - Last Filed: 08/26/24 13:10> Status: Acute <Xenia Moses LEAD ELECTRICAL CONTROLS ENGINEER - Last Filed: 08/26/24 13:10> (3) Shortness of breath: Code(s): R06.02 - Shortness of breath <Xenia Moses LEAD ELECTRICAL CONTROLS ENGINEER - Last Filed: 08/26/24 13:10> Status: Acute <Xenia Moses LEAD ELECTRICAL CONTROLS ENGINEER - Last Filed: 08/26/24 13:10> (4) Benign essential hypertension: Code(s): I10 - Essential (primary) hypertension <Xenia Moses, LEAD ELECTRICAL CONTROLS ENGINEER - Last Filed: 08/26/24 13:10> Status: Acute <Xenia Moses LEAD ELECTRICAL CONTROLS ENGINEER - Last Filed: 08/26/24 13:10> (5) Chronic anticoagulation: Code(s): Z79.01 - intermediate accountant (current) use of anticoagulants <Xenia Moses LEAD ELECTRICAL CONTROLS ENGINEER - Last Filed: 08/26/24 13:10> Status: Acute <Xenia Moses, LEAD ELECTRICAL CONTROLS ENGINEER - Last Filed: 08/26/24 13:10> (6) Chronic obstructive pulmonary disease, unspecified: Qualifiers: COPD type: unspecified COPD Qualified Code(s): J44.9 - Chronic obstructive pulmonary disease, unspecified <Xenia NoonanBruna Josué LEAD ELECTRICAL CONTROLS ENGINEER - Last Filed: 08/26/24 13:10> Code(s): J44.9 - Chronic obstructive pulmonary disease, unspecified <Xenia Everardo Moses, LEAD ELECTRICAL CONTROLS ENGINEER - Last Filed: 08/26/24 13:10> Status: Acute <Xenia Everardo Moses, LEAD ELECTRICAL CONTROLS ENGINEER - Last Filed: 08/26/24 13:10> Assessment and Plan: 84-year-old male with past medical history heart failure with preserved ejection fraction, COPD, AFib with RVR, prior tobacco abuse, lung cancer, BPH, hypertension, hyperlipidemia, hypothyroidism, chronic anemia, chronic respiratory failure with 2 L nasal cannula. Recently discharged from [facility] on 08/06/2024 due to COPD exacerbation. He is a new resident of [facility]. Presents to [facility] on 08/20/2024 with shortness of breath beginning after lunch. He also has a chronic cough with mucus production but it is worse now with yellow sputum. ER evaluation revealed temperature 100.7? F, saturating well on 2 L nasal cannula. White blood cell count 13.4, hemoglobin 10.9, platelet 289, serum creatinine 1.07, quad viral screen negative, chest x-ray with bilateral lower lung opacities in volume loss in left hemithorax with paramediastinal scarring in the upper lung zone. He was given ceftriaxone and azithromycin, acetaminophen. ----- Community-acquired pneumonia, likely bacterial Sepsis without shock as evidence by pneumonia fever and leukocytosis -low-grade fever. Continue to monitor -leukocytosis. Continue to trend -pending sputum and blood cultures, Legionella, mycoplasma, pneumococcal antigen -Tylenol p.r.n. -copious upper airway congestion. Start guaifenesin. 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 Heart healthy diet, intake/output, daily weights. Full code. Saline lock IV. Patient resides at [facility] 08/21 vest therapy ordered IS, ambulation- pt/ot ordered will give lasix 40 mg iv x 1 as BLE edema noted, then leg elevation and acewrap prn-discussed with RN continue antibiotics 08/22 Begin Vest Therapy with Respiratory Begin PT/OT Continue IS & Ambulation Continue leg elevation and jose a-wrap Continue antibiotics Ordered Flonase to aid with nasal congestion 08/23 - Chest Physiotherapy ordered modified to reflect Vest Therapy. Pt yet to receive since admission. - PT/OT: decreased functional independence & mobility d/t endurance & safety. Only tolerating short distance d/t SOB. Continue benefit from PT services. - Continue Abx, IS, & ambulation - Continue leg elevation & jose a-wrap - Repeat Chest XR: no change from 08/20/22 - WBC 10.6 today, previously 13.4 on 08/20 & 8.7 on 08.21. Continue to trend. - Modify iron supplement and Miralax doses to half or every other day to manage constipation 08/24 - Chest/Vest physiotherapy completed yesterday twice & today. Patient notices improvement in cough & production. Continue treatment. - OT on 08/23: notes increase SOB with dressing and transfers, but fair endurance. Minimal assistance with transfer but requires cueing for safety and assistance with transfers, mobility, and dressing. Continue OT services. - PT on 08/23: tolerated well. Required rest break at 40 feet when ambulating. requires cues for safety. Continue PT services.- - Continue Abx, IS, & ambulation - Continue leg elevation & jose a-wrap - recheck CBC, CMP in am tomorrow, 08/24 08/25 - continue chest/vest physiotherapy. - PT on 08/24: decreased endurance & balance with transfers & ambulation. on 4L of O2 with activity. Reduced to 3L at end of session. Continue PT - Labs reviewed. CBC is 9.5 - increase dietary supplementation to TID - low total protein & albumin - Continue Abx, IS, & ambulation - Continue leg elevation & jose a-wrap <Xenia Moses, LEAD ELECTRICAL CONTROLS ENGINEER - Last Filed: 08/26/24 13:10> DS: Summary Hospital Course Hospital Course: 84-year-old male with past medical history heart failure with preserved ejection fraction, COPD, AFib with RVR, prior tobacco abuse, lung cancer, BPH, hypertension, hyperlipidemia, hypothyroidism, chronic anemia, chronic respiratory failure with 2 L nasal cannula. Recently discharged from [facility] on 08/06/2024 due to COPD exacerbation. Presented to [facility] on 08/20/2024 with shortness of breath beginning after lunch, worsening chronic cough with mucus production. ER evaluation revealed temperature 100.7? F, saturating well on 2 L nasal cannula. White blood cell count 13.4, hemoglobin 10.9, platelet 289, serum creatinine 1.07, quad viral screen negative, chest x-ray findings indicating pneumonia. He was given IV ceftriaxone and azithromycin, and oral acetaminophen. IV Antibiotics were continued during admission. Fever reduced and has remained normal. While admitted, repeat chest x-ray on 08/23 indicated no changes from previous x-ray on 08/20. PT/OT & Chest Vest Physiotherapy was completed to aid in recovery, endurance, strengthening, transferring, and gait. At rest, patient returned to baseline O2 requirements (2L NC), but has required 4L NC with activity & transfers that resolved following rest. PT recommends continued treatment for endurance, gait, and strengthening # Pneumonia - Presented with shortness of breath, productive cough with yellow flem, and chest x-ray with findings of pneumonia. WBC initially 13.4 on 08/20/24. Reduced to 10.6 on 08/23 & 9.5 on 08/25/24. Repeat chest x-ray on 08/23 indicated no changes. - During admission patient was treated with IV Ceftriaxone and IV Azithromycin. Upon discharge, patient will continue oral antibiotics as stated below. - Augmentin 875-125 mg twice per day starting on 08/26/2024 at 21:00 and ending on 08/28/24 at 09:01 - Azithromycin course was completed during patients stay in hospital # Shortness of Breath & Fever - Fever upon admission of 100.7 on 08/20/24 which reduced and has remained stable. - Shortness of breath upon admission on 08/20/24. Continued at rest intermittently with persistent cough that improved during admission. At discharge, he denies shortness of breath at rest, but does get short of breath and require increase oxygen demand with activity and transfers that resolves following rest. Patient notes slow, but gradual improvement in this over last several days. - Home O2 assessment completed prior to discharge to assess if O2 needs to be up triated with activity. # Lower extremity Edema - Lower extremity edema present at baseline. Given jose a-wraps and instructed on leg elevation to help reduce/limit. - continue lower extremity compression via jose a-wraps or stockinets. Recommend continuation of care with PCP. <Xenia Moses, LEAD ELECTRICAL CONTROLS ENGINEER - Last Filed: 08/26/24 13:10> 84-year-old male with past medical history heart failure with preserved ejection fraction, COPD, AFib with RVR, prior tobacco abuse, lung cancer, BPH, hypertension, hyperlipidemia, hypothyroidism, chronic anemia, chronic respiratory failure with 2 L nasal cannula. Recently discharged from [facility] on 08/06/2024 due to COPD exacerbation. Presented to [facility] on 08/20/2024 with shortness of breath beginning after lunch, worsening chronic cough with mucus production. ER evaluation revealed temperature 100.7? F, saturating well on 2 L nasal cannula. White blood cell count 13.4, hemoglobin 10.9, platelet 289, serum creatinine 1.07, quad viral screen negative, chest x-ray findings indicating pneumonia. He was given IV c eftriaxone and azithromycin, and oral acetaminophen. IV Antibiotics were continued during admission. Fever reduced and has remained normal. While admitted, repeat chest x-ray on 08/23 indicated no changes from previous x-ray on 08/20. PT/OT & Chest Vest Physiotherapy was completed to aid in recovery, endurance, strengthening, transferring, and gait. At rest, patient returned to baseline O2 requirements (2L NC), but has required 4L NC with activity & transfers that resolved following rest. PT recommends continued treatment for endurance, gait, and strengthening # Pneumonia - Presented with shortness of breath, productive cough with yellow flem, and chest x-ray with findings of pneumonia. WBC initially 13.4 on 08/20/24. Reduced to 10.6 on 08/23 & 9.5 on 08/25/24. Repeat chest x-ray on 08/23 indicated no changes. - During admission patient was treated with IV Ceftriaxone and IV Azithromycin. Upon discharge, patient will continue oral antibiotics as stated below. - Augmentin 875-125 mg twice per day starting on 08/26/2024 at 21:00 and ending on 08/28/24 at 09:01 - Azithromycin course was completed during patients stay in hospital and does not require continuation of oral antibiotics for this coverage. # Shortness of Breath & Fever - Fever upon admission of 100.7 on 08/20/24 which reduced and has remained stable. - Shortness of breath upon admission on 08/20/24. Continued at rest intermittently with persistent cough that improved during admission. At discharge, he denies shortness of breath at rest, but does get short of breath and require increase oxygen demand with activity and transfers that resolves following rest. Patient notes slow, but gradual improvement in this over last several days. - Home O2 assessment completed prior to discharge to assess if O2 needs to be up triated with activity. # Lower extremity Edema - Lower extremity edema present at baseline. Given jose a-wraps and instructed on leg elevation to help reduce/limit. - continue lower extremity compression via jose a-wraps or stockinets. Recommend continuation of care with PCP. <Edgardo Murray, Student - Last Filed: 08/26/24 11:42> Time Spent with Patient Time attestation: Total time spent providing and/or coordinating discharge services: <Xenia Moses APRN - Last Filed: 08/26/24 13:10> Exam Narrative: up in bed, feeling better today <Xenia Moses APRN - Last Filed: 08/26/24 13:10> Const: General: comfortable and no acute distress <Xenia Moses APRN - Last Filed: 08/26/24 13:10> HENMT: Mouth: Yes moist mucous membranes <Xenia Moses LEAD ELECTRICAL CONTROLS ENGINEER - Last Filed: 08/26/24 13:10> Eyes: Pupils: Equal, round and reactive pupils present <Xenia Moses LEAD ELECTRICAL CONTROLS ENGINEER - Last Filed: 08/26/24 13:10> Neck: Neck: supple <Xenia Moses LEAD ELECTRICAL CONTROLS ENGINEER - Last Filed: 08/26/24 13:10> Resp: Effort & Inspection: normal respiratory effort <Xenia Moses LEAD ELECTRICAL CONTROLS ENGINEER - Last Filed: 08/26/24 13:10> Auscultation: crackles <Xenia Moses LEAD ELECTRICAL CONTROLS ENGINEER - Last Filed: 08/26/24 13:10> Other: Bilateral rhonchi <Xenia Moses LEAD ELECTRICAL CONTROLS ENGINEER - Last Filed: 08/26/24 13:10> Cardio: Rate: regular rate <Xenia Moses LEAD ELECTRICAL CONTROLS ENGINEER - Last Filed: 08/26/24 13:10> Rhythm: regular rhythm <Xenia Moses LEAD ELECTRICAL CONTROLS ENGINEER - Last Filed: 08/26/24 13:10> Heart sounds: no gallops, no murmurs and no rubs <Xenia Moses LEAD ELECTRICAL CONTROLS ENGINEER - Last Filed: 08/26/24 13:10> GI: Inspection: non-distended <Xenia Moses LEAD ELECTRICAL CONTROLS ENGINEER - Last Filed: 08/26/24 13:10> Neuro: Cranial nerves: Yes Equal, round and reactive pupils present <Xenia Moses LEAD ELECTRICAL CONTROLS ENGINEER - Last Filed: 08/26/24 13:10> Motor exam (neuro): 5/5 motor strength present throughout <Xenia Moses LEAD ELECTRICAL CONTROLS ENGINEER - Last Filed: 08/26/24 13:10> Extrem: General: edema <Xenia Moses LEAD ELECTRICAL CONTROLS ENGINEER - Last Filed: 08/26/24 13:10> Other: 3+ pitting edema bilateral lower extremi ties <Xenia Moses LEAD ELECTRICAL CONTROLS ENGINEER - Last Filed: 08/26/24 13:10> DS: Data Data Completed and Pending Labs on day of discharge: Labs from last 24 hours 08/26/24 04:29 Potassium 4.0 Preliminary micro results at discharge 08/20/24 20:58 Blood Culture - Preliminary Blood 08/20/24 21:01 Blood Culture - Preliminary Blood <Xenia Moses APRN - Last Filed: 08/26/24 13:10> Discharge Plan Discharge Attending physician on discharge: Du Stanford <Xenia Moses APRN - Last Filed: 08/26/24 13:10> Du Stanford <Kayy Arambula - Last Filed: 08/26/24 11:42> Discharging Clinician: Xenia Moses <Xenia Moses APRN - Last Filed: 08/26/24 13:10> Xenia Moses <Kayy Arambula - Last Filed: 08/26/24 11:42> Patient Disposition: Home with Home Health Service <Xenia Moses APRN - Last Filed: 08/26/24 13:10> Activity: may shower and as tolerated <Xenia Moses APRN - Last Filed: 08/26/24 13:10> may shower and as tolerated <Kayy Arambula - Last Filed: 08/26/24 11:42> Diet: regular <Xenia Moses APRN - Last Filed: 08/26/24 13:10> regular <Kayy Arambula - Last Filed: 08/26/24 11:42> Discharge Instructions: Follow up with your primary care physician in 1-3 weeks following discharge for continuation of care. Pneumonia - Augmentin 875-125 mg twice per day. First dose is on 08/26/2024 (today) at approx. 09:00 PM. Last dose given on 08/28/24 at approx. 09:00 AM. - Continue with activity as tolerated - Continue spirometry several times throughout the day as needed. - Continue physical therapy with [facility] to increase strength, improve balance, & endurance. <Xenia Moses APRN - Last Filed: 08/26/24 13:10> Patient Instructions: Antibiotic Form <Xenia Moses APRN - Last Filed: 08/26/24 13:10> Patient Language: Israeli <Xenia Moses APRN - Last Filed: 08/26/24 13:10> Stand Alone Forms: General Discharge Information <Xenia Moses APRN - Last Filed: 08/26/24 13:10> Follow-up/Referrals: Shon Willis MD [Primary Care Provider] - 2 Weeks <Xenia Moses APRN - Last Filed: 08/26/24 13:10> Discharge Medications: New guaifenesin [Mucus Relief ER] 600 mg Tablet Extended Release 12hr 1,200 mg PO Q12HR Qty: 12 0RF amoxicillin-pot clavulanate 875-125 mg tablet 1 tablet PO Q12H Qty: 4 0RF Continued tamsulosin 0.4 mg capsule 0.4 mg PO DAILY dexamethasone 4 mg tablet 8 mg PO DAILY PRN (Reason: chemo) Patient Comments: on takes when getting chemo. Not active at this time. spironolactone 25 mg tablet 25 mg PO .QOD Patient Comments: To take qod. Due to BP 104/66. metoprolol succinate 25 mg tablet extended release 24 hr 12.5 mg PO DAILY lidocaine-prilocaine 2.5-2.5 % cream 1 applic TOPICAL ONCE PRN (Reason: for ramona cath during chemo) Patient Comments: only when accessing port finasteride 5 mg tablet 5 mg PO DAILY gabapentin 100 mg capsule 100 mg PO Q12H dapagliflozin propanediol [Farxiga] 10 mg tablet 10 mg PO DAILY dutasteride 0.5 mg capsule 0.5 mg PO .daily acetaminophen [Tactinal] 325 mg tablet 325 mg PO Q6H PRN (Reason: pain) Eliquis 5 mg PO BID Patient Comments: HOLD FOR [address] Elizabeth last 07/21/24 cyanocobalamin (vitamin B-12) [Vitamin B-12] 1,000 mcg tablet 1,000 mcg PO DAILY folic acid 400 mcg tablet 400 mcg PO DAILY levothyroxine [Synthroid] 88 mcg tablet 44 mcg PO DAILY Patient Comments: TAKE 1/2 Tablet daily cholecalciferol (vitamin D3) 50 mcg (2,000 unit) capsule 50 mcg PO DAILY furosemide 20 mg tablet 10 mg PO QAM Qty: 90 0RF albuterol sulfate 90 mcg/actuation HFA aerosol inhaler See Rx Instructions .ROUTE .COMPLEX Qty: 51 1RF Dose Instruction: USE 2 INHALATIONS ORALLY EVERY 4 TO 6 HOURS NEEDED. USE SPACER. Rx Instructions: USE 2 INHALATIONS ORALLY EVERY 4 TO 6 HOURS NEEDED. USE SPACER. pravastatin 40 mg tablet See Rx Instructions .ROUTE .COMPLEX Qty: 90 1RF Dose Instruction: TAKE 1 TABLET BY MOUTH DAILY Rx Instructions: TAKE 1 TABLET BY MOUTH DAILY albuterol sulfate 2.5 mg /3 mL (0.083 %) solution for nebulization 2.5 mg inhalation Q4-6H PRN (Reason: shortness of breath or wheezing) Qty: 90 3RF Trelegy Ellipta 100-62.5-25 mcg blister with device See Rx Instructions .ROUTE .COMPLEX Qty: 180 1RF Dose Instruction: USE 1 INHALATION ORALLY DAILY. RINSE AND SPIT AFTEREACH USE Rx Instructions: USE 1 INHALATION ORALLY DAILY. RINSE AND SPIT AFTEREACH USE ferrous sulfate 325 mg (65 mg iron) tablet,delayed release (DR/EC) 325 mg PO BID sertraline [Zoloft] 50 mg tablet 50 mg PO DAILY Qty: 30 3RF <Xenia Moses APRN - Last Filed: 08/26/24 13:10> Date of admission: 08/21/24 12:46 <Xenia Moses APRN - Last Filed: 08/26/24 13:10> Primary Care Provider: Shon Willis <Xenia Moses LEAD ELECTRICAL CONTROLS ENGINEER - Last Filed: 08/26/24 13:10> Admitting Provider: Mercedes Choudhury <Xenia Moses LEAD ELECTRICAL CONTROLS ENGINEER - Last Filed: 08/26/24 13:10> Attending physician on admission: Mercedes Choudhury <Xenia Moses APRN - Last Filed: 08/26/24 13:10> Condition: Stable <Xenia Moses APRN - Last Filed: 08/26/24 13:10> Hospitalist MIPS Heart Failure (Exclusion) Patient has history of Heart Transplant or Left Ventricular Assistive Device?: No <Xenia Moses APRN - Last Filed: 08/26/24 13:10> IF YES, STOP HERE: Heart Failure (Qualifier) Patient has current or prior documentation of LVEF less than or equal to 40%, or mod/servere depressed LVSF?: No <Xenia Moses, LEAD ELECTRICAL CONTROLS ENGINEER - Last Filed: 08/26/24 13:10> IF NO, STOP HERE:
[2024-08-26 08:14] LABS: Alanine Aminotransferase 12 U/L (6-50); Albumin Level 2.5 g/dL (3.5-5.1); Alkaline Phosphatase 37 U/L (38-126); Anion Gap 4 mmol/L (4-12); Aspartate Amino Transferase 23 U/L (17-59); Bilirubin,Total 0.1 mg/dL (0.2-1.3); Blood Urea Nitrogen 10 mg/dL (9-20); Calcium 8.3 mg/dL (8.4-10.2); Carbon Dioxide 28 mmol/L (22-30); Chloride 101 mmol/L (98-107); Estimated CRCL calculation 50 ml/min; Estimated Glomerular Filt Rate > 60; Glucose 74 mg/dL (65-110); Sodium 133 mmol/L (137-145); Total Protein 5.4 g/dL (6.3-8.2)
[2024-08-26] MEDS: GABAPENTIN 100 MG CAPSULE PO (09:20)
[2024-08-26] MEDS: DUTASTERIDE 0.5 MG CAPSULE PO (09:20)
[2024-08-26] MEDS: PRAVASTATIN SODIUM 20 MG TABLET BY MOUTH (09:20)
[2024-08-26] MEDS: FERROUS SULFATE 325 MG TABLET DR PO (09:20)
[2024-08-26] MEDS: SPIRONOLACTONE 25 MG TABLET PO (09:20)
[2024-08-26] MEDS: FINASTERIDE 5 MG TABLET PO (09:20)
[2024-08-26] MEDS: APIXABAN 5 MG TABLET BY MOUTH (09:20)
[2024-08-26] MEDS: guaiFENesin 12 HR 600 MG TABCR 1200 MG PO (09:21)
[2024-08-26] MEDS: FOLIC ACID 0.4 MG TABLET PO (09:21)
[2024-08-26] MEDS: METOPROLOL SUCCINATE EXT REL 12.5 MG TABCR PO (09:21)
[2024-08-26] MEDS: SERTRALINE HCL 50 MG TABLET PO (09:21)
[2024-08-26] MEDS: FUROSEMIDE 10 MG TABLET PO (09:21)
[2024-08-26] MEDS: FLUTICASONE PROPIONATE 0.05% NA SPR 16 GM BTL (*BKC) 1 SPRAY NASAL (09:27)
[2024-08-26 11:51] LABS: Hematocrit 37.8 % (42.0-52.0); Hemoglobin 10.9 g/dL (14.0-18.0); Mean Corpuscular HGB Conc 28.8 g/dl (32-36); Mean Corpuscular Hemoglobin 21.3 pg (26-34); Mean Corpuscular Volume 73.8 fl (80-100); Platelet Count Result 365 k/mm3 (150-375); Red Blood Count 5.12 M/mm3 (4.6-6.20); White Blood Count 17.3 K/mm3 (4.5-10.0)
--- NOTE | 2024-08-26 13:27 | HOMEO2EVAL ---
Evaluation was performed at [facility] Home Oxygen Evaluation RC: Home Oxygen (O2) Evaluation Start: 08/26/24 10:56 Freq: ONCE Status: Active Protocol: RPE Activity Type Activity Date Activity User E-sign Co-sign Detail Recorded Client Recorded Date Recorded By Document 08/26/24 13:14 [email or web address] [email or web address] 08/26/24 13:27 KRM Document 08/26/24 13:16 [email or web address] [email or web address] 08/26/24 13:27 KRM Document 08/26/24 13:18 [email or web address] [email or web address] 08/26/24 13:27 KRM Document 08/26/24 13:20 [email or web address] [email or web address] 08/26/24 13:27 KRM Document 08/26/24 13:22 [email or web address] [email or web address] 08/26/24 13:27 KRM Document 08/26/24 13:24 [email or web address] [email or web address] 08/26/24 13:27 KRM 08/26/24 08/26/24 08/26/24 13:14 13:16 13:18 Home O2 Evaluation [Oxygen] -Test Phase Resting Resting Resting -Oxygen Delivery Room Air Nasal Cannula Nasal Cannula -Oxygen Flow Rate (L/min) 1 2 [Pulse Oximetry] -Pulse Oximetry (90-100 %) 87 L 88 L 91 [Pulse Rate] -Pulse Rate (60-100 beats/min) 84 88 82 [Evaluation] -Activity Tolerance [Exercise] -Ambulation Distance (feet) -Ambulation Distance (meters) [Comments] -Home Oxygen Evaluation Comments [Charges] -Evaluation Charges 08/26/24 08/26/24 08/26/24 13:20 13:22 13:24 Home O2 Evaluation [Oxygen] -Test Phase Exercise Exercise Exercise -Oxygen Delivery Nasal Cannula Nasal Cannula Nasal Cannula -Oxygen Flow Rate (L/min) 2 3 4 [Pulse Oximetry] -Pulse Oximetry (90-100 %) 87 L 88 L 90 [Pulse Rate] -Pulse Rate (60-100 beats/min) 93 93 90 [Evaluation] -Activity Tolerance Fair Fair [Exercise] -Ambulation Distance (feet) 20 -Ambulation Distance (meters) 6.09 [Comments] -Home Oxygen Evaluation Comments 2lpm at rest, 4lpm with activity. PT. REQUESTING POC NOW. [Charges] -Evaluation Charges O2 Evaluation by Pulmonary
--- NOTE | 2024-08-26 13:36 | PCRCNOTE ---
PT. STATES HE HAS O2 WITH [facility]. PT. IS NOW NEEDING 2LPM O2 AT REST AND 4LPM O2 WITH ACTIVITY. PT. IS REQUESTING A POC AT HOME NOW. FAXED UPDATED TESTING AND ORDER TO [facility].
[2024-08-26] MEDS: HEPARIN SODIUM LOCK FLUSH 500 UNITS/5 ML SYRINGE IV PUSH (13:42)
== END 2024-08-26 14:15 | disposition home health service (06) | DRG 871 ==
LOC: ANHED 18:23 → ANH3MEDSUR 21:34
PROVIDERS: Admitting Provider General Practice; Emergency Provider Emergency Medicine; PCP Internal Medicine; Visit Provider Nurse Practitioner
DX: A41.9 Sepsis, unspecified organism (principal); J15.9 Unspecified bacterial pneumonia; I50.32 Chronic diastolic (congestive) heart failure; J44.0 Chronic obstructive pulmonary disease with (acute) lower respiratory infection; J96.10 Chronic respiratory failure, unspecified whether with hypoxia or hypercapnia; I11.0 Hypertensive heart disease with heart failure; N40.0 Benign prostatic hyperplasia without lower urinary tract symptoms; J43.9 Emphysema, unspecified; E03.9 Hypothyroidism, unspecified; I48.91 Unspecified atrial fibrillation; E78.5 Hyperlipidemia, unspecified; D64.9 Anemia, unspecified; Z20.822 Contact with and (suspected) exposure to COVID-19; Z79.01 Long term (current) use of anticoagulants; Z79.51 Long term (current) use of inhaled steroids; Z79.84 Long term (current) use of oral hypoglycemic drugs; Z79.899 Other long term (current) drug therapy; Z85.118 Personal history of other malignant neoplasm of bronchus and lung; Z87.891 Personal history of nicotine dependence; Z90.2 Acquired absence of lung [part of]; Z99.81 Dependence on supplemental oxygen
CPT/HCPCS: 36415; 71045; 80048; 80053; 83735; 84132; 85025; 85027; 87040; 87070; 87449; 87637; 87899; 93005; 94618; 94640; 94668; 94669; 96365; 96368; 96375; 97110; 97116; 97162; 97165; 97530; 97535; 99285; A9270; G0378; J0456; J0696; J1642; J1938; J7050